=== PATIENT | female | born 1990 | race Two or more races ===

== ENCOUNTER 2018-11-19 10:15 | Emergency (ER) | payer MEDICAID, OTHER ==
[~2018-11-19] VITALS: Ht 142.2 cm; Wt 43.7 kg
[2018-11-19 21:02] VITALS: BP 92/41
== END 2018-11-19 21:06 | disposition home or self-care (01) ==
LOC: ED 15:31
DX: D50.0 Iron deficiency anemia secondary to blood loss (chronic) (principal); N92.4 Excessive bleeding in the premenopausal period
CPT/HCPCS: 36415; 36430; 76830; 80053; 81001; 84703; 85025; 85610; 86850; 86900; 86923; 87077; 87086; 87186; 93005; 99285; P9016

== ENCOUNTER → 2019-03-06 | Outpatient (CLI) | payer MEDICAID ==
[~2019-03-06] MED LIST: ACET-1600 PO; AMOX-367 PO; CALC-534 PO; CALC1TAB68 PO; CYAN250013 PO; DEXA4TAB66 PO; FERR-46 PO; FERR-51 PO; LACT1CAP37 PO; LORA-446 PO; MAGNESIUM PO; POTA20LI2 PO; POTA20TA6 PO; PROC10TA78 PO; SUMA50TA3 PO; WARF-36 PO-COUM; WARF1TAB74 PO; [UNRECOGNIZED DRUG - CODE] PO
[2019-03-06 10:11] LABS: BASOPHILS # (AUTO) 0.01 x10^3/uL (0-0.1); BASOPHILS % (AUTO) 0 % (0-1); EOSINOPHILS % (AUTO) 3 % (1-7); LYMPHOCYTES # (AUTO) 0.58 x10^3/uL (1-3.4); LYMPHOCYTES % (AUTO) 19 % (22-44); MD NO; MEAN CORPUSCULAR HEMOGLOBIN 33.1 pg (27.0-34.8); MEAN CORPUSCULAR HGB CONC 33.8 g/dL (32.4-35.8); MEAN CORPUSCULAR VOLUME 97.9 fL (80-100); MEAN PLATELET VOLUME 7.7 fL (7.4-10.4); MONOCYTES # (AUTO) 0.18 x10^3/uL (0.2-0.8); MONOCYTES % (AUTO) 6 % (2-9); NEUTROPHILS # (AUTO) 2.13 x10^3/uL (1.8-6.8); NEUTROPHILS % (AUTO) 71 % (42-75); PLATELET COUNT 308 x10^3/uL (130-400); RED BLOOD COUNT 3.56 x10^6/uL (3.82-5.3); RED CELL DISTRIBUTION WIDTH 12.6 % (9.6-15.2)
[2019-03-06 10:20] LABS: ALANINE AMINOTRANSFERASE 28 U/L (12-78); ANION GAP 9 mmol/L (5-15); CALCIUM 9.1 mg/dL (8.5-10.1); CHLORIDE 106 mmol/L (98-107); CREATININE 0.75 mg/dL (0.55-1.02)
[2019-03-06 10:23] LABS: INTERNATIONAL NORMALIZED RATIO 1.35 (0.93-1.1)
[2019-03-06 10:24] LABS: ALKALINE PHOSPHATASE 92 U/L (45-117); BILIRUBIN,TOTAL 0.5 mg/dL (0.2-1.0); TOTAL PROTEIN 8.3 g/dL (6.4-8.2)
== END | disposition home or self-care (01) ==
LOC: STAR 09:13
PROVIDERS: ATTEND Specialist
DX: Z51.11 Encounter for antineoplastic chemotherapy (principal); C53.1 Malignant neoplasm of exocervix; N92.0 Excessive and frequent menstruation with regular cycle; I82.890 Acute embolism and thrombosis of other specified veins; Z79.01 Long term (current) use of anticoagulants
CPT/HCPCS: 36415; 80053; 84703; 85025; 85610; 85730

== ENCOUNTER 2019-03-10 07:09 | Day surgery (SDC) | payer MEDICAID ==
[~2019-03-10] VITALS: Ht 144.8 cm; Wt 42.7 kg
[2019-03-10] MEDS ORDERED: LACTATED RINGERS 1,000 ML IV SCH (07:54)
[2019-03-10 07:55] VITALS: BP 104/72
[2019-03-10] MEDS ORDERED: CEFOTETAN PMX 2GM/50ML 50 ML IV ONE (08:00)
[2019-03-10 08:43] LABS: ALANINE AMINOTRANSFERASE 26 U/L (12-78); ALBUMIN 3.9 g/dL (3.4-5.0); ANION GAP 6 mmol/L (5-15); CALCIUM 9.4 mg/dL (8.5-10.1); CHLORIDE 108 mmol/L (98-107); CREATININE 0.76 mg/dL (0.55-1.02)
[2019-03-10 08:45] LABS: ALKALINE PHOSPHATASE 83 U/L (45-117); BILIRUBIN,TOTAL 0.4 mg/dL (0.2-1.0); TOTAL PROTEIN 7.8 g/dL (6.4-8.2)
[2019-03-10 09:06] LABS: PROTHROMBIN TIME 10.5 Seconds (9.6-11.5)
[2019-03-10 09:15] LABS: HCG UR SG 1.012 (1.003-1.030)
[2019-03-10] MEDS ORDERED: FENTANYL PF 250 MCG/5ML ONE (10:46)
[2019-03-10] MEDS ORDERED: MIDAZOLAM 1 MG/ML, 2ML ONE (10:46)
[2019-03-10] MEDS ORDERED: SUCCINYLCHOLINE 20 MG/ML, 10ML ONE (10:47)
[2019-03-10] MEDS ORDERED: ONDANSETRON 2MG/ML, 2ML ONE ×2 (10:47)
[2019-03-10] MEDS ORDERED: PROPOFOL 10 MG/ML, 20ML ONE (10:47)
[2019-03-10] MEDS ORDERED: DEXAMETHASONE 4 MG/ML, 1ML ONE ×2 (10:47)
[2019-03-10] MEDS ORDERED: ROCURONIUM 10MG/ML,5ML ONE (10:47)
[2019-03-10] MEDS ORDERED: SUGAMMADEX 200 MG/2 ML IVPush ONE (11:45)
[2019-03-10] MEDS ORDERED: hydrALAzine 20 MG/ML, 1ML IV PRN (12:00)
[2019-03-10] MEDS ORDERED: PROMETHAZINE 25 MG/ML, 1ML IV PRN (12:00)
[2019-03-10] MEDS ORDERED: ACETAMINOPHEN 325 MG TABLET PO PRN (12:00)
[2019-03-10] MEDS ORDERED: DIAZEPAM 5 MG/ML, 2ML IVPush PRN (12:00)
[2019-03-10] MEDS ORDERED: HYDROmorphone 2 MG/ML, 1ML IVPush PRN (12:00)
[2019-03-10] MEDS ORDERED: PROMETHAZINE 12.5 MG SUPP PR PRN (12:00)
[2019-03-10] MEDS ORDERED: MEPERIDINE/PF 25MG/ML,1ML IVPush PRN (12:00)
[2019-03-10] MEDS ORDERED: ONDANSETRON 2MG/ML, 2ML IV PRN (12:00)
[2019-03-10] MEDS ORDERED: MIDAZOLAM 1 MG/ML, 2ML IV PRN (12:00)
[2019-03-10] MEDS ORDERED: ONDANSETRON ODT 8 MG PO PRN (12:00)
[2019-03-10] MEDS ORDERED: ALBUTEROL SULFATE 2.5 MG/3 ML NPPB PRN (12:00)
[2019-03-10] MEDS ORDERED: OXYcodone 5 MG/5 ML ORAL.SOL UDC PO PRN (12:00)
[2019-03-10] MEDS ORDERED: LABETALOL 5MG/ML, 20ML IV PRN (12:00)
[2019-03-10] MEDS ORDERED: HALOPERIDOL 5 MG/ML IV PRN (12:00)
[2019-03-10] MEDS ORDERED: FENTANYL PF 100 MCG/2ML IV PRN (12:00)
[2019-03-10] MEDS ORDERED: EPHEDRINE 50 MG/ML, 1ML IVPush PRN (12:00)
== END 2019-03-10 14:30 | disposition home or self-care (01) ==
LOC: OUT 07:09
PROVIDERS: ATTEND Specialist
DX: N88.8 Other specified noninflammatory disorders of cervix uteri (principal); N72 Inflammatory disease of cervix uteri; C53.1 Malignant neoplasm of exocervix; N73.6 Female pelvic peritoneal adhesions (postinfective); I82.890 Acute embolism and thrombosis of other specified veins; F41.8 Other specified anxiety disorders; N92.0 Excessive and frequent menstruation with regular cycle; Z92.21 Personal history of antineoplastic chemotherapy; Z86.718 Personal history of other venous thrombosis and embolism; Z72.89 Other problems related to lifestyle; Z79.01 Long term (current) use of anticoagulants; Z98.890 Other specified postprocedural states
CPT/HCPCS: 36415; 49321; 52000; 80053; 81025; 85610; 85730; 86850; 86900; 88305; J0330; J1100; J2250; J2405; J2704; J3010; J3490; J7120

== ENCOUNTER 2019-04-09 11:17 | Outpatient (CLI) | payer MEDICAID | END 2019-04-09 23:59 | disposition home or self-care (01) | LOC: RAD 11:17 → CFH 23:59 | PROVIDERS: ATTEND Specialist | DX: Z51.11 Encounter for antineoplastic chemotherapy (principal); C53.1 Malignant neoplasm of exocervix; N92.0 Excessive and frequent menstruation with regular cycle; I82.890 Acute embolism and thrombosis of other specified veins; Z79.01 Long term (current) use of anticoagulants | CPT/HCPCS: 78815; 93971; A9552 ==

== ENCOUNTER 2019-04-17 07:02 | Outpatient (CLI) | payer MEDICAID | END 2019-04-17 23:59 | disposition home or self-care (01) | LOC: ROC 07:02 | PROVIDERS: ATTEND Radiology Radiation Oncology | DX: C53.9 Malignant neoplasm of cervix uteri, unspecified (principal); Z92.3 Personal history of irradiation | CPT/HCPCS: 99212; G0463 ==

== ENCOUNTER 2019-05-20 11:12 | Day surgery (SDC) | payer MEDICAID ==
[~2019-05-20] VITALS: Ht 144.8 cm; Wt 44.9 kg
[~2019-05-20 11:12] MED LIST changes: +BUPIVACAINE/PF 0.25% ONE
[2019-05-20] MEDS ORDERED: LACTATED RINGERS 1,000 ML IV SCH (11:56)
[2019-05-20] MEDS ORDERED: ASPI-496 PO (11:57)
[2019-05-20 11:58] VITALS: BP 109/69
[2019-05-20 12:25] LABS: HCG UR SG 1.029 (1.003-1.030)
[2019-05-20 12:26] LABS: BASOPHILS # (AUTO) 0.02 x10^3/uL (0-0.1); BASOPHILS % (AUTO) 1 % (0-1); EOSINOPHILS # (AUTO) 0.07 x10^3/uL (0-0.4); EOSINOPHILS % (AUTO) 2 % (1-7); LYMPHOCYTES # (AUTO) 0.66 x10^3/uL (1-3.4); LYMPHOCYTES % (AUTO) 22 % (22-44); MD NO; MEAN CORPUSCULAR HEMOGLOBIN 31.5 pg (27.0-34.8); MEAN CORPUSCULAR HGB CONC 34.8 g/dL (32.4-35.8); MEAN CORPUSCULAR VOLUME 90.6 fL (80-100); MEAN PLATELET VOLUME 7.6 fL (7.4-10.4); MONOCYTES # (AUTO) 0.22 x10^3/uL (0.2-0.8); MONOCYTES % (AUTO) 7 % (2-9); NEUTROPHILS # (AUTO) 2.02 x10^3/uL (1.8-6.8); NEUTROPHILS % (AUTO) 68 % (42-75); PLATELET COUNT 288 x10^3/uL (130-400); RED CELL DISTRIBUTION WIDTH 11.7 % (9.6-15.2)
[2019-05-20] MEDS ORDERED: CEFOTETAN PMX 2GM/50ML 50 ML ONE (12:28)
[2019-05-20] MEDS ORDERED: PLEASE ENTER HEIGHT AND WEIGHT MC SCH (12:30)
[2019-05-20] MEDS ORDERED: CEFOTETAN PMX 2GM/50ML 50 ML IV ONE (12:30)
[2019-05-20 12:31] LABS: INTERNATIONAL NORMALIZED RATIO 1.03 (0.93-1.1); PROTHROMBIN TIME 10.9 Seconds (9.6-11.5)
[2019-05-20 12:32] LABS: ALBUMIN 3.8 g/dL (3.4-5.0); ANION GAP 8 mmol/L (5-15); CALCIUM 9.2 mg/dL (8.5-10.1); CHLORIDE 107 mmol/L (98-107)
[2019-05-20 12:52] LABS: ALANINE AMINOTRANSFERASE 20 U/L (12-78); ALKALINE PHOSPHATASE 78 U/L (45-117); BILIRUBIN,TOTAL 0.5 mg/dL (0.2-1.0); CREATININE 0.68 mg/dL (0.55-1.02); TOTAL PROTEIN 7.6 g/dL (6.4-8.2)
[2019-05-20] MEDS ORDERED: FENTANYL PF 250 MCG/5ML ONE (15:02)
[2019-05-20] MEDS ORDERED: MIDAZOLAM 1 MG/ML, 2ML ONE (15:02)
[2019-05-20] MEDS ORDERED: ROCURONIUM 10MG/ML,5ML ONE (15:07)
[2019-05-20] MEDS ORDERED: PROPOFOL 10 MG/ML, 20ML ONE (15:07)
[2019-05-20] MEDS ORDERED: DEXAMETHASONE 4 MG/ML, 1ML ONE (15:07)
[2019-05-20] MEDS ORDERED: CEFAZOLIN 1,000 MG ONE (15:07)
[2019-05-20] MEDS ORDERED: SUCCINYLCHOLINE 20 MG/ML, 10ML ONE (15:07)
[2019-05-20] MEDS ORDERED: ONDANSETRON 2MG/ML, 2ML ONE (15:07)
[2019-05-20] MEDS ORDERED: MEPERIDINE/PF 25MG/0.5ML IVPush PRN (15:30)
[2019-05-20] MEDS ORDERED: HYDROmorphone 1 MG/ML, 1ML INJ IV PRN (15:30)
[2019-05-20] MEDS ORDERED: PROMETHAZINE 25 MG/ML, 1ML IV PRN (15:30)
[2019-05-20] MEDS ORDERED: METOCLOPRAMIDE 5 MG/ML, 2ML IV PRN (15:30)
[2019-05-20] MEDS ORDERED: KETOROLAC 30 MG/1 ML IV PRN (15:30)
[2019-05-20] MEDS ORDERED: OXYcodone 5 MG/5 ML ORAL.SOL UDC PO PRN (15:30)
[2019-05-20] MEDS ORDERED: hydrALAzine 20 MG/ML, 1ML IV PRN (15:30)
[2019-05-20] MEDS ORDERED: ONDANSETRON 2MG/ML, 2ML IVPush PRN (15:30)
[2019-05-20] MEDS ORDERED: ALBUTEROL SULFATE 2.5 MG/3 ML NPPB PRN (15:30)
[2019-05-20] MEDS ORDERED: LABETALOL 5MG/ML, 20ML IV PRN (15:30)
[2019-05-20] MEDS ORDERED: FENTANYL PF 100 MCG/2ML IV PRN (15:30)
[2019-05-20] MEDS ORDERED: DIAZEPAM 5 MG/ML, 2ML IV PRN ×2 (15:30)
[2019-05-20] MEDS ORDERED: FENTANYL PF 100 MCG/2ML ONE (17:13)
[2019-05-20] MEDS ORDERED: OXYcodone 5 MG/5 ML ORAL.SOL UDC ONE (17:13)
[2019-05-20] MEDS ORDERED: KETOROLAC 30 MG/1 ML ONE (17:13)
[2019-05-20] MEDS ORDERED: DIAZEPAM 5 MG/ML, 2ML ONE (18:06)
== END 2019-05-20 20:21 | disposition home or self-care (01) ==
LOC: OUT 11:12 → 4NE 18:54 → OUT 20:21
PROVIDERS: ATTEND Specialist
DX: C53.1 Malignant neoplasm of exocervix (principal); C48.1 Malignant neoplasm of specified parts of peritoneum; N73.6 Female pelvic peritoneal adhesions (postinfective); F41.9 Anxiety disorder, unspecified; Z79.82 Long term (current) use of aspirin; Z79.01 Long term (current) use of anticoagulants; Z79.899 Other long term (current) drug therapy; Z86.718 Personal history of other venous thrombosis and embolism; Z92.21 Personal history of antineoplastic chemotherapy; Z98.890 Other specified postprocedural states
CPT/HCPCS: 36415; 49321; 80053; 81025; 85025; 85610; 85730; 86850; 86900; 88305; 88331; J0330; J0690; J1100; J1885; J2250; J2405; J2704; J3010; J3360; J3490; J7120; S2900; G0378

== ENCOUNTER 2019-06-02 07:50 | Outpatient (CLI) | payer MEDICAID ==
[~2019-06-02 07:50] MED LIST changes: +ASPI-496 PO; -BUPIVACAINE/PF 0.25% ONE
== END 2019-06-02 23:59 | disposition home or self-care (01) ==
LOC: ROC 07:50
PROVIDERS: ATTEND Radiology Radiation Oncology
DX: C53.9 Malignant neoplasm of cervix uteri, unspecified (principal)
CPT/HCPCS: 99212; G0463

== ENCOUNTER 2019-06-06 15:40 | Inpatient (IN) | payer MEDICAID ==
[~2019-06-06] VITALS: Ht 152.4 cm; Wt 41.3 kg
--- NOTE | 2019-06-06 16:00 | NUR ---
PT TO ROOM 13 PER WHEELCHAIR. PT C/O ABDOMINAL PAIN, STEMING FROM HER LAP TROCHAR SITES WRAPPING AROUND TO BACK, DOES NOT HIT SPINE. PAIN HAS BEEN PRESENT SINCE SUNDAY. NAUSEATED NO VOMITING, NORMAL BM. PT HAD ATTEMPTED DAVINCI ROBOT ASSISTED TOTAL HYSTERECTOMY X1 WK AGO. PT HAS HAD NO COMPLICATIONS FROM FAILED SURGERY, WHERE HYSTERECTOMY UNABLE TO BE PERFORMED, AND BIOPSY ONLY TAKEN. MOTHER AT BEDSIDE. PT IN GOWN, PLACED ON MONITOR. TACHYCARDIC AT 107, DECREASED SINCE INITIAL CHECKIN. PT STATES "I HAVE HAD A HIGH HEART RATE SINCE SUNDAY, RUNNING ANYWHERE FROM 120-140." PT IN GOWN, READY FOR MD EXAM. PLACED ON MONITORS.
[2019-06-06] MEDS ORDERED: ONDANSETRON 2MG/ML, 2ML IVPush ONE ×2 (17:00→21:30)
[2019-06-06] MEDS ORDERED: SODIUM CHLORIDE FLUSH 10ML SYR IVF ONE ×2 (17:00→19:00)
[2019-06-06] MEDS ORDERED: HYDROmorphone 2 MG/ML, 1ML IVPush PRN (17:00)
[2019-06-06] MEDS ORDERED: HYDROmorphone 1 MG/ML, 1ML INJ ONE ×3 (17:09→21:21)
[2019-06-06] MEDS ORDERED: ONDANSETRON 2MG/ML, 2ML ONE (17:10)
--- NOTE | 2019-06-06 17:10 | NUR ---
IV STARTED AND MEDICATIONS ADMINISTERED FOR PAIN AND NAUSEA. IV FLUIDS STARTED. AFTER INITIAL SLOW PUSH OF IV DILAUDID, PATIENT BEGINS TO CRY AND STATES "I DON'T LIKE HOW THIS MAKES ME FEEL." RN SITS WITH PATIENT AND USING DIVERSION AND DEEP BREATHING. PT STATES "MY PAIN IS NOW GONE, NOW I'M HIGH A KITE." PT RATES PAIN AT 0. MONITOR REMAINS ON, MOTHER REMAINS AT BEDSIDE. WILL CONTINUE TO MONITOR. AWAITING LAB RESULTS. CT NOTIFIED THAT 20 GA IV STARTED.
[2019-06-06 17:19] LABS: BASOPHILS # (AUTO) 0.03 x10^3/uL (0-0.1); BASOPHILS % (AUTO) 0 % (0-1); EOSINOPHILS # (AUTO) 0.06 x10^3/uL (0-0.4); EOSINOPHILS % (AUTO) 1 % (1-7); LYMPHOCYTES # (AUTO) 1.04 x10^3/uL (1-3.4); LYMPHOCYTES % (AUTO) 10 % (22-44); MD NO; MEAN CORPUSCULAR HEMOGLOBIN 30.9 pg (27.0-34.8); MEAN CORPUSCULAR HGB CONC 33.8 g/dL (32.4-35.8); MEAN CORPUSCULAR VOLUME 91.3 fL (80-100); MEAN PLATELET VOLUME 6.6 fL (7.4-10.4); MONOCYTES % (AUTO) 6 % (2-9); NEUTROPHILS # (AUTO) 8.67 x10^3/uL (1.8-6.8); NEUTROPHILS % (AUTO) 83 % (42-75); PLATELET COUNT 689 x10^3/uL (130-400); RED BLOOD COUNT 3.13 x10^6/uL (3.82-5.3); RED CELL DISTRIBUTION WIDTH 12.1 % (9.6-15.2)
[2019-06-06 17:30] LABS: ALANINE AMINOTRANSFERASE 16 U/L (12-78); ALBUMIN 2.7 g/dL (3.4-5.0); ANION GAP 11 mmol/L (5-15); CALCIUM 9.1 mg/dL (8.5-10.1); CHLORIDE 104 mmol/L (98-107); CREATININE 0.73 mg/dL (0.55-1.02)
[2019-06-06 17:35] LABS: ALKALINE PHOSPHATASE 230 U/L (45-117); BILIRUBIN,TOTAL 0.2 mg/dL (0.2-1.0); TOTAL PROTEIN 8.7 g/dL (6.4-8.2)
[2019-06-06 17:51] LABS: MICROSCOPIC AUTO
--- NOTE | 2019-06-06 18:00 | NUR ---
REPORT TO RELIEF RN FOR LUNCH
[2019-06-06] MEDS ORDERED: OMNIPAQUE 350 MG/ML, 100ML BOTTLE ONE (18:15)
--- NOTE | 2019-06-06 18:30 | NUR ---
RETURN FROM LUNCH. PT PAIN REMAINS 2. MOM AT BEDSIDE. HR 125.
[2019-06-06] MEDS ORDERED: SODIUM CHLORIDE 0.9% 1,000ML IVBOLUS ONE ×3 (19:00→21:30)
--- NOTE | 2019-06-06 19:05 | NUR ---
PATIENT PAIN RETURNING AFTER AMBULATING TO BR. REPEAT 1MG DILAUDID. NACL BOLUS AND IV ANTIBIOTICS STARTED. FAMILY REMAINS AT BEDSIDE. CRYING REACTION NOT WITH THIS DOSE OF MEDICATIONS.
[2019-06-06] MEDS ORDERED: METRONIDAZOLE PMX 500MG/100ML 100 ML IV ONE (19:30)
[2019-06-06] MEDS ORDERED: AMPICILLIN/SULBACTAM 3 GM in SODIUM CHLORIDE 0.9% 100 ML IV ONE (19:30)
[2019-06-06] MEDS ORDERED: METRONIDAZOLE PMX 500MG/100ML 100 ML ONE (19:40)
--- NOTE | 2019-06-06 20:05 | NUR ---
PT PAIN INCREASING AGAIN. FAMILY FOLLOWING RN IN OTHER PATIENTS ROOM TO INFORM RN THAT PAIN HAS INCREASED AND PATIENT IS CRYING HYSTERICALLY. RN INFORMS FAMILY THAT RN WILL BE OVER SHORTLY TO ADDRESS.
--- NOTE | 2019-06-06 20:30 | NUR ---
RN IN TO ASSESS PATIENT. PT CRYING HYSTERICALLY, AND ROCKING BACK AND FORTH ON BED. RN SEES THAT HR IS 163. RN ATTEMPTING TO CALM PATIENT AND ASSESS PAIN. RN PROBING TO SEE IF PAIN HAS CHANGED FROM EARLIER, AND WHAT'S MAKES IT HURT THIS MUCH MORE AT THIS TIME. PT UNABLE TO ANSWER SHE REMAINS HYSTERICAL. DEVELOPER PROGRAMMER IN TO ASSESS WELL DUE TO EXTREME TACHY. ADDITIONAL FLOOR NURSE IN TO PERFORM EKG. ORDERS RECEIVED FOR ADDITIONAL PAIN MEDICATIONS. PT AGAIN REMINDED THAT STRICT NPO PER ER MD.
--- NOTE | 2019-06-06 20:45 | NUR ---
PAIN DOWN TO A 3, HR DOWN TO 140, PT SUCKING ON GLYCERIN SWABS. RN ADDRESSES FOLLOWING RN IN TO OTHER PATIENT'S ROOM A PRIVACY AND HIPPA CONCERN. MOTHER VERBALIZES UNDERSTANDING. FAMILY REMAINS AT BEDSIDE.
--- NOTE | 2019-06-06 21:00 | NUR ---
HR DOWN TO 120. PT RESING IN ROOM. AWAITING BED PLACEMENT. WILL CONTINUE TO MONITOR PATIENT.
[2019-06-06] MEDS ORDERED: HYDROmorphone 1 MG/ML, 1ML INJ IV ONE (21:30)
--- NOTE | 2019-06-06 22:00 | NUR ---
PT SLEEPING, FAMILY AT BEDSIDE
--- NOTE | 2019-06-06 22:46 | NUR ---
PT UP TO BR WITH ONE ASSIST. HR INCREASES WITH MOVEMENT AND STRESS OF URGENCY. PT FEELS VERY WARM. WILL TAKE TEMP UPON RETURN TO ROOM. MOM IN BR WITH PATIENT.
[2019-06-06] MEDS ORDERED: ACETAMINOPHEN 500 MG TABLET ONE (22:55)
[2019-06-06] MEDS ORDERED: ACETAMINOPHEN 500 MG TABLET PO ONE (23:00)
[2019-06-06] MEDS ORDERED: VANCOMYCIN PER PHARMACY MC PRN (23:00)
--- NOTE | 2019-06-06 23:08 | NUR ---
INFORMED OF PATIENT FEBRILE STATUS, HR AND PAIN LEVEL. ORDER FOR 1GM PO TYLENOL. PT AND FAMILY INFORMED OF CHANGE OF STAFF, MONITORING FO TEMP./HR/PAIN LEVEL BEFORE BED PLACEMENT IS MADE. REPORT TO JACE PEÑA.
--- NOTE | 2019-06-06 23:31 | NUR ---
Report given to Sherita PEÑA
[2019-06-07] VITALS (7 sets, daily range): BP systolic 100–129; BP diastolic 63–82
[2019-06-07] MEDS ORDERED: HYDROmorphone 1 MG/ML, 1ML INJ IM PRN
[2019-06-07] MEDS: AMPICILLIN/SULBACTAM 3 GM in SODIUM CHLORIDE 0.9% 100 ML IV SCH ×5 (01:30→23:06)
[2019-06-07] MEDS: METRONIDAZOLE PMX 500MG/100ML 100 ML IV SCH ×4 (01:53→20:44)
[2019-06-07] MEDS: HYDROmorphone 1 MG/ML, 1ML INJ IV PRN (04:53)
[2019-06-07 07:21] LABS: MEAN CORPUSCULAR HEMOGLOBIN 30.9 pg (27.0-34.8); MEAN CORPUSCULAR HGB CONC 33.6 g/dL (32.4-35.8); MEAN CORPUSCULAR VOLUME 91.9 fL (80-100); MEAN PLATELET VOLUME 6.5 fL (7.4-10.4); PLATELET COUNT 602 x10^3/uL (130-400); RED BLOOD COUNT 2.69 x10^6/uL (3.82-5.3); RED CELL DISTRIBUTION WIDTH 12.6 % (9.6-15.2)
[2019-06-07 07:22] LABS: ALBUMIN 2.2 g/dL (3.4-5.0); ANION GAP 10 mmol/L (5-15); CALCIUM 8.4 mg/dL (8.5-10.1); CHLORIDE 111 mmol/L (98-107)
[2019-06-07 07:25] LABS: ALANINE AMINOTRANSFERASE 11 U/L (12-78); ALKALINE PHOSPHATASE 180 U/L (45-117); BILIRUBIN,TOTAL 0.3 mg/dL (0.2-1.0)
[2019-06-07 07:29] LABS: HEMOGRAM NOTE RECHECKED
[2019-06-07 07:30] LABS: BASOPHILS # (AUTO) 0.01 x10^3/uL (0-0.1); BASOPHILS % (AUTO) 0 % (0-1); EOSINOPHILS # (AUTO) 0.01 x10^3/uL (0-0.4); EOSINOPHILS % (AUTO) 0 % (1-7); LYMPHOCYTES # (AUTO) 0.92 x10^3/uL (1-3.4); LYMPHOCYTES % (AUTO) 8 % (22-44); MD NO; MONOCYTES # (AUTO) 0.63 x10^3/uL (0.2-0.8); MONOCYTES % (AUTO) 6 % (2-9); NEUTROPHILS % (AUTO) 86 % (42-75)
[2019-06-07] MEDS ORDERED: MORPHINE SULFATE 4 MG/ML, 1ML ONE ×2 (08:17→14:04)
[2019-06-07] MEDS ORDERED: SODIUM CHLORIDE 0.9% 1,000ML IVBOLUS ONE (13:00)
[2019-06-07] MEDS ORDERED: MORPHINE SULFATE 4 MG/ML, 1ML IVPush ONE (14:00)
[2019-06-07] MEDS: ONDANSETRON 2MG/ML, 2ML IVPush PRN (14:46)
[2019-06-07] MEDS: D5%-0.45NACL+KCL 20MEQ 1,000 ML IV SCH ×2 (16:19)
[2019-06-08] MEDS: HYDROmorphone 1 MG/ML, 1ML INJ IV PRN (01:51)
[2019-06-08] MEDS: METRONIDAZOLE PMX 500MG/100ML 100 ML IV SCH ×4 (03:07→20:27)
[2019-06-08] MEDS: D5%-0.45NACL+KCL 20MEQ 1,000 ML IV SCH ×2 (05:40→17:35)
[2019-06-08] MEDS: AMPICILLIN/SULBACTAM 3 GM in SODIUM CHLORIDE 0.9% 100 ML IV SCH ×4 (05:40→22:23)
[2019-06-08 06:48] VITALS: BP 110/72
[2019-06-08 13:52] VITALS: BP 111/76
[2019-06-08] MEDS: HYDROcodone/APAP 5/325 TABLET PO PRN ×3 (14:25→22:23)
[2019-06-08] MEDS: ONDANSETRON 2MG/ML, 2ML IVPush PRN (14:34)
[2019-06-08 18:34] VITALS: BP 105/71
[2019-06-09 01:15] VITALS: BP 100/67
[2019-06-09] MEDS: HYDROcodone/APAP 5/325 TABLET PO PRN ×5 (02:09→15:24)
[2019-06-09] MEDS: ONDANSETRON 2MG/ML, 2ML IVPush PRN ×4 (02:15→20:52)
[2019-06-09] MEDS: D5%-0.45NACL+KCL 20MEQ 1,000 ML IV SCH ×3 (03:50→21:06)
[2019-06-09 05:14] LABS: MEAN CORPUSCULAR HEMOGLOBIN 30.8 pg (27.0-34.8); MEAN CORPUSCULAR VOLUME 90.6 fL (80-100); MEAN PLATELET VOLUME 6.8 fL (7.4-10.4); PLATELET COUNT 463 x10^3/uL (130-400); RED BLOOD COUNT 2.42 x10^6/uL (3.82-5.3)
[2019-06-09 05:59] LABS: BASOPHILS # (AUTO) 0.01 x10^3/uL (0-0.1); BASOPHILS % (AUTO) 0 % (0-1); EOSINOPHILS % (AUTO) 1 % (1-7); LYMPHOCYTES # (AUTO) 0.56 x10^3/uL (1-3.4); LYMPHOCYTES % (AUTO) 6 % (22-44); MD SCAN; MONOCYTES # (AUTO) 0.41 x10^3/uL (0.2-0.8); MONOCYTES % (AUTO) 4 % (2-9); NEUTROPHILS # (AUTO) 8.34 x10^3/uL (1.8-6.8); NEUTROPHILS % (AUTO) 89 % (42-75)
[2019-06-09 07:52] VITALS: BP 103/69
[2019-06-09] MEDS ORDERED: PROCHLORPERAZINE 5 MG/ML, 2ML IVPush PRN (12:30)
[2019-06-09 15:06] VITALS: BP 110/72
[2019-06-09] MEDS: HYDROmorphone 1 MG/ML, 1ML INJ IV PRN ×2 (17:06→20:52)
[2019-06-09 19:47] VITALS: BP 113/78
[2019-06-10] VITALS (8 sets, daily range): BP systolic 108–118; BP diastolic 73–84
[2019-06-10] MEDS: HYDROmorphone 1 MG/ML, 1ML INJ IV PRN ×6 (01:04→21:42)
[2019-06-10] MEDS: D5%-0.45NACL+KCL 20MEQ 1,000 ML IV SCH ×2 (05:42→17:42)
[2019-06-10 06:10] LABS: MEAN CORPUSCULAR HEMOGLOBIN 30.5 pg (27.0-34.8); MEAN CORPUSCULAR HGB CONC 33.8 g/dL (32.4-35.8); MEAN CORPUSCULAR VOLUME 90.1 fL (80-100); MEAN PLATELET VOLUME 7.3 fL (7.4-10.4); PLATELET COUNT 467 x10^3/uL (130-400)
[2019-06-10 06:12] LABS: ANION GAP 7 mmol/L (5-15); CALCIUM 7.8 mg/dL (8.5-10.1); CHLORIDE 105 mmol/L (98-107); CREATININE 0.65 mg/dL (0.55-1.02)
[2019-06-10 06:33] LABS: BASOPHILS # (AUTO) 0.02 x10^3/uL (0-0.1); BASOPHILS % (AUTO) 0 % (0-1); EOSINOPHILS # (AUTO) 0.09 x10^3/uL (0-0.4); EOSINOPHILS % (AUTO) 1 % (1-7); LYMPHOCYTES # (AUTO) 0.74 x10^3/uL (1-3.4); LYMPHOCYTES % (AUTO) 8 % (22-44); MD SCAN; MONOCYTES % (AUTO) 5 % (2-9); NEUTROPHILS # (AUTO) 8.43 x10^3/uL (1.8-6.8); NEUTROPHILS % (AUTO) 86 % (42-75)
[2019-06-10] MEDS ORDERED: POTASSIUM CHLORIDE 20 MEQ in SODIUM CHLORIDE 0.9% 250 ML IV ONE (07:30)
[2019-06-10] MEDS: MAGNESIUM HYDROXIDE 8%, 30ML UDC PO SCH (08:25)
[2019-06-10] MEDS: ONDANSETRON 2MG/ML, 2ML IVPush PRN ×3 (10:12→22:15)
[2019-06-11 00:55] VITALS: BP 111/74
[2019-06-11] MEDS: HYDROmorphone 1 MG/ML, 1ML INJ IV PRN ×6 (01:45→22:02)
[2019-06-11] MEDS: D5%-0.45NACL+KCL 20MEQ 1,000 ML IV SCH ×3 (01:45→19:25)
[2019-06-11] MEDS: ONDANSETRON 2MG/ML, 2ML IVPush PRN ×3 (05:25→20:34)
[2019-06-11 05:46] LABS: BASOPHILS # (AUTO) 0.01 x10^3/uL (0-0.1); BASOPHILS % (AUTO) 0 % (0-1); EOSINOPHILS # (AUTO) 0.14 x10^3/uL (0-0.4); EOSINOPHILS % (AUTO) 2 % (1-7); LYMPHOCYTES # (AUTO) 0.86 x10^3/uL (1-3.4); LYMPHOCYTES % (AUTO) 10 % (22-44); MD NO; MEAN CORPUSCULAR HEMOGLOBIN 30.6 pg (27.0-34.8); MEAN CORPUSCULAR VOLUME 90.2 fL (80-100); MEAN PLATELET VOLUME 7.3 fL (7.4-10.4); MONOCYTES # (AUTO) 0.78 x10^3/uL (0.2-0.8); MONOCYTES % (AUTO) 9 % (2-9); NEUTROPHILS # (AUTO) 6.85 x10^3/uL (1.8-6.8); NEUTROPHILS % (AUTO) 79 % (42-75); PLATELET COUNT 442 x10^3/uL (130-400); RED BLOOD COUNT 2.67 x10^6/uL (3.82-5.3)
[2019-06-11 05:54] LABS: CHLORIDE 106 mmol/L (98-107)
[2019-06-11 05:58] LABS: ANION GAP 9 mmol/L (5-15); CREATININE 0.74 mg/dL (0.55-1.02)
[2019-06-11 06:40] VITALS: BP 120/81
[2019-06-11] MEDS: MAGNESIUM HYDROXIDE 8%, 30ML UDC PO SCH (09:01)
[2019-06-11 12:51] VITALS: BP 125/83
[2019-06-11 19:40] VITALS: BP 124/83
[2019-06-12 01:27] VITALS: BP 123/71
[2019-06-12] MEDS: HYDROmorphone 1 MG/ML, 1ML INJ IV PRN ×6 (02:00→22:28)
[2019-06-12] MEDS: ONDANSETRON 2MG/ML, 2ML IVPush PRN ×2 (03:06→09:22)
[2019-06-12] MEDS: D5%-0.45NACL+KCL 20MEQ 1,000 ML IV SCH ×3 (03:06→21:36)
[2019-06-12 04:58] LABS: BASOPHILS # (AUTO) 0.02 x10^3/uL (0-0.1); BASOPHILS % (AUTO) 0 % (0-1); EOSINOPHILS # (AUTO) 0.23 x10^3/uL (0-0.4); EOSINOPHILS % (AUTO) 3 % (1-7); LYMPHOCYTES # (AUTO) 0.73 x10^3/uL (1-3.4); LYMPHOCYTES % (AUTO) 9 % (22-44); MD NO; MEAN CORPUSCULAR HEMOGLOBIN 30.1 pg (27.0-34.8); MEAN CORPUSCULAR HGB CONC 33.3 g/dL (32.4-35.8); MEAN CORPUSCULAR VOLUME 90.3 fL (80-100); MEAN PLATELET VOLUME 6.9 fL (7.4-10.4); MONOCYTES # (AUTO) 0.66 x10^3/uL (0.2-0.8); MONOCYTES % (AUTO) 8 % (2-9); NEUTROPHILS # (AUTO) 6.53 x10^3/uL (1.8-6.8); NEUTROPHILS % (AUTO) 80 % (42-75); PLATELET COUNT 456 x10^3/uL (130-400); RED BLOOD COUNT 2.81 x10^6/uL (3.82-5.3)
[2019-06-12 05:09] LABS: ANION GAP 7 mmol/L (5-15); CALCIUM 7.9 mg/dL (8.5-10.1); CHLORIDE 106 mmol/L (98-107)
[2019-06-12 05:10] LABS: CREATININE 0.79 mg/dL (0.55-1.02)
[2019-06-12 07:50] VITALS: BP 138/82
[2019-06-12] MEDS ORDERED: MAGNESIUM SULFATE PMX 4GM/100M 100 ML IV ONE (09:00)
[2019-06-12] MEDS: MAGNESIUM HYDROXIDE 8%, 30ML UDC PO SCH (09:21)
[2019-06-12] MEDS: METOCLOPRAMIDE 5 MG/ML, 2ML IVPush SCH ×3 (10:43→21:36)
[2019-06-12 16:40] VITALS: BP 131/84
[2019-06-12 19:03] VITALS: BP 129/82
[2019-06-13 01:32] VITALS: BP 122/79
[2019-06-13] MEDS: HYDROmorphone 1 MG/ML, 1ML INJ IV PRN ×5 (03:40→19:52)
[2019-06-13] MEDS: D5%-0.45NACL+KCL 20MEQ 1,000 ML IV SCH ×2 (05:21→13:57)
[2019-06-13] MEDS: METOCLOPRAMIDE 5 MG/ML, 2ML IVPush SCH ×3 (05:21→18:40)
[2019-06-13 06:30] VITALS: BP 128/87
[2019-06-13] MEDS: MAGNESIUM HYDROXIDE 8%, 30ML UDC PO SCH (07:50)
[2019-06-13 12:29] VITALS: BP 125/84
[2019-06-13] MEDS ORDERED: PINK LADY ENEMA 490 ML BOTTLE PR ONE (15:00)
[2019-06-13 16:22] LABS: ALANINE AMINOTRANSFERASE 11 U/L (12-78); ANION GAP 7 mmol/L (5-15); CALCIUM 8.3 mg/dL (8.5-10.1); CHLORIDE 108 mmol/L (98-107); CREATININE 0.83 mg/dL (0.55-1.02)
[2019-06-13 16:27] LABS: ALKALINE PHOSPHATASE 141 U/L (45-117); BILIRUBIN,TOTAL 0.3 mg/dL (0.2-1.0); PREALBUMIN 9.2 mg/dL (20.0-40.0); TOTAL PROTEIN 7.3 g/dL (6.4-8.2); TRIGLYCERIDES 158 mg/dL (50-200)
[2019-06-13] MEDS ORDERED: FAT EMUL IV SCH ×2 (17:00)
[2019-06-13] MEDS: D5%-0.45% NACL 1,000 ML IV SCH ×2 (17:00→22:04)
[2019-06-13] MEDS ORDERED: DEXTROSE 50%, 50ML SYRINGE IVPush PRN (17:00)
[2019-06-13] MEDS ORDERED: DEXTROSE 70% IV SCH ×2 (17:00)
[2019-06-13] MEDS ORDERED: [UNRECOGNIZED DRUG - OTHER] IV SCH ×2 (17:00)
[2019-06-13] MEDS ORDERED: PVN PER PHARMACY IV SCH (17:00)
[2019-06-13] MEDS ORDERED: AMINO ACID 10% IV SCH ×2 (17:00)
[2019-06-13] MEDS ORDERED: DEXTROSE 10% 500 ML IV PRN (17:00)
[2019-06-13] MEDS ORDERED: SMOF TPN IV SCH ×2 (17:00)
[2019-06-13] MEDS ORDERED: TPN PER PHARMACY MC PRN (17:00)
[2019-06-13 18:49] VITALS: BP 122/81
[2019-06-13] MEDS: FILTER, DISP 1.2 MICRON FOR TPN/PVN IV PRN (22:04)
[2019-06-14] MEDS: METOCLOPRAMIDE 5 MG/ML, 2ML IVPush SCH ×4 (00:07→17:49)
[2019-06-14] MEDS: HYDROmorphone 1 MG/ML, 1ML INJ IV PRN ×2 (00:08→04:20)
[2019-06-14 03:15] VITALS: BP 120/71
[2019-06-14 05:11] LABS: BASOPHILS # (AUTO) 0.03 x10^3/uL (0-0.1); BASOPHILS % (AUTO) 0 % (0-1); EOSINOPHILS # (AUTO) 0.16 x10^3/uL (0-0.4); EOSINOPHILS % (AUTO) 2 % (1-7); LYMPHOCYTES # (AUTO) 0.56 x10^3/uL (1-3.4); LYMPHOCYTES % (AUTO) 7 % (22-44); MD NO; MEAN CORPUSCULAR HEMOGLOBIN 29.9 pg (27.0-34.8); MEAN CORPUSCULAR VOLUME 90.6 fL (80-100); MEAN PLATELET VOLUME 7.2 fL (7.4-10.4); MONOCYTES # (AUTO) 0.56 x10^3/uL (0.2-0.8); MONOCYTES % (AUTO) 7 % (2-9); NEUTROPHILS % (AUTO) 85 % (42-75); PLATELET COUNT 481 x10^3/uL (130-400); RED BLOOD COUNT 2.94 x10^6/uL (3.82-5.3); RED CELL DISTRIBUTION WIDTH 12.7 % (9.6-15.2)
[2019-06-14 05:27] LABS: ALBUMIN 1.9 g/dL (3.4-5.0); ANION GAP 6 mmol/L (5-15); CALCIUM 8.2 mg/dL (8.5-10.1); CHLORIDE 106 mmol/L (98-107)
[2019-06-14 05:31] LABS: ALANINE AMINOTRANSFERASE 12 U/L (12-78); ALKALINE PHOSPHATASE 132 U/L (45-117); BILIRUBIN,TOTAL 0.3 mg/dL (0.2-1.0); CREATININE 0.76 mg/dL (0.55-1.02); TOTAL PROTEIN 6.7 g/dL (6.4-8.2)
[2019-06-14] MEDS: INSULIN REGULAR MEDIUM DOSE Q6H X 48HRS SQ-INSULIN SCH ×4 (05:55→18:00)
[2019-06-14] MEDS: HYDROcodone/APAP 5/325 TABLET PO PRN ×4 (08:33→22:22)
[2019-06-14] MEDS: MAGNESIUM HYDROXIDE 8%, 30ML UDC PO SCH (08:33)
[2019-06-14 08:45] VITALS: BP 119/79
[2019-06-14 12:50] VITALS: BP 113/76
[2019-06-14] MEDS ORDERED: DEXTROSE 70% IV SCH ×3 (17:00)
[2019-06-14] MEDS ORDERED: [UNRECOGNIZED DRUG - OTHER] IV SCH (17:00)
[2019-06-14] MEDS ORDERED: FAT EMUL IV SCH ×3 (17:00)
[2019-06-14] MEDS ORDERED: [UNRECOGNIZED DRUG - OTHER] IV SCH (17:00)
[2019-06-14] MEDS ORDERED: SMOF TPN IV SCH ×3 (17:00)
[2019-06-14] MEDS ORDERED: AMINO ACID 10% IV SCH ×3 (17:00)
[2019-06-14] MEDS ORDERED: [UNRECOGNIZED DRUG - OTHER] IV SCH (17:00)
[2019-06-14 18:49] VITALS: BP 119/77
[2019-06-15 00:08] VITALS: BP 127/85
[2019-06-15] MEDS: METOCLOPRAMIDE 5 MG/ML, 2ML IVPush SCH ×4 (00:23→17:45)
[2019-06-15] MEDS: HYDROcodone/APAP 5/325 TABLET PO PRN ×5 (03:09→21:57)
[2019-06-15] MEDS: FILTER, DISP 1.2 MICRON FOR TPN/PVN IV PRN (03:10)
[2019-06-15 05:00] LABS: ANION GAP 6 mmol/L (5-15); CALCIUM 8.6 mg/dL (8.5-10.1); CHLORIDE 106 mmol/L (98-107)
[2019-06-15 05:01] LABS: CREATININE 0.68 mg/dL (0.55-1.02)
[2019-06-15] MEDS: INSULIN REGULAR MEDIUM DOSE Q6H X 48HRS SQ-INSULIN SCH ×4 (06:00→17:59)
[2019-06-15 08:52] VITALS: BP 144/89
[2019-06-15] MEDS: MAGNESIUM HYDROXIDE 8%, 30ML UDC PO SCH (09:15)
[2019-06-15 13:52] VITALS: BP 135/90
[2019-06-15 15:35] LABS: MICROSCOPIC AUTO
[2019-06-15] MEDS ORDERED: FAT EMUL IV SCH (17:00)
[2019-06-15] MEDS ORDERED: SMOF TPN IV SCH (17:00)
[2019-06-15] MEDS ORDERED: AMINO ACID 10% IV SCH (17:00)
[2019-06-15] MEDS ORDERED: DEXTROSE 70% IV SCH (17:00)
[2019-06-15] MEDS ORDERED: [UNRECOGNIZED DRUG - OTHER] IV SCH (17:00)
[2019-06-15 18:36] VITALS: BP 119/81
[2019-06-16] MEDS: METOCLOPRAMIDE 5 MG/ML, 2ML IVPush SCH ×4 (00:12→16:39)
[2019-06-16 02:30] VITALS: BP 125/85
[2019-06-16] MEDS: HYDROcodone/APAP 5/325 TABLET PO PRN ×2 (03:28→08:36)
[2019-06-16 05:43] LABS: BASOPHILS % (AUTO) 0 % (0-1); EOSINOPHILS # (AUTO) 0.22 x10^3/uL (0-0.4); EOSINOPHILS % (AUTO) 2 % (1-7); LYMPHOCYTES # (AUTO) 0.89 x10^3/uL (1-3.4); LYMPHOCYTES % (AUTO) 10 % (22-44); MD NO; MEAN CORPUSCULAR HEMOGLOBIN 30.1 pg (27.0-34.8); MEAN CORPUSCULAR HGB CONC 33.6 g/dL (32.4-35.8); MEAN CORPUSCULAR VOLUME 89.7 fL (80-100); MEAN PLATELET VOLUME 7.5 fL (7.4-10.4); MONOCYTES # (AUTO) 0.64 x10^3/uL (0.2-0.8); MONOCYTES % (AUTO) 7 % (2-9); NEUTROPHILS % (AUTO) 81 % (42-75); PLATELET COUNT 560 x10^3/uL (130-400); RED BLOOD COUNT 3.06 x10^6/uL (3.82-5.3); RED CELL DISTRIBUTION WIDTH 12.3 % (9.6-15.2)
[2019-06-16 05:48] LABS: INTERNATIONAL NORMALIZED RATIO 1.07 (0.93-1.1); PROTHROMBIN TIME 11.3 Seconds (9.6-11.5)
[2019-06-16 05:53] LABS: CHLORIDE 104 mmol/L (98-107)
[2019-06-16] MEDS: INSULIN REGULAR MEDIUM DOSE QDAY SQ-INSULIN SCH (06:00)
[2019-06-16 06:01] LABS: ALANINE AMINOTRANSFERASE 42 U/L (12-78); ALBUMIN 2.2 g/dL (3.4-5.0); ALKALINE PHOSPHATASE 274 U/L (45-117); ANION GAP 6 mmol/L (5-15); BILIRUBIN,TOTAL 0.2 mg/dL (0.2-1.0); CALCIUM 8.6 mg/dL (8.5-10.1); CREATININE 0.75 mg/dL (0.55-1.02); TOTAL PROTEIN 7.8 g/dL (6.4-8.2)
[2019-06-16 07:31] VITALS: BP 135/75
[2019-06-16] MEDS: MAGNESIUM HYDROXIDE 8%, 30ML UDC PO SCH (08:55)
[2019-06-16] MEDS ORDERED: TPN PER PHARMACY MC SCH (11:30)
[2019-06-16] MEDS ORDERED: GOLYTELY 4,000ML ORAL.SOL PO SCH (12:30)
[2019-06-16] MEDS: HYDROmorphone 1 MG/ML, 1ML INJ IV PRN ×3 (13:07→20:20)
[2019-06-16 14:26] VITALS: BP 142/93
[2019-06-16] MEDS: FILTER, DISP 1.2 MICRON FOR TPN/PVN IV PRN (16:39)
[2019-06-16] MEDS ORDERED: [UNRECOGNIZED DRUG - OTHER] IV SCH (17:00)
[2019-06-16] MEDS ORDERED: DEXTROSE 70% IV SCH (17:00)
[2019-06-16] MEDS ORDERED: SMOF TPN IV SCH (17:00)
[2019-06-16] MEDS ORDERED: FAT EMUL IV SCH (17:00)
[2019-06-16] MEDS ORDERED: AMINO ACID 10% IV SCH (17:00)
[2019-06-17] MEDS: HYDROmorphone 1 MG/ML, 1ML INJ IV PRN ×2 (00:28→04:47)
[2019-06-17] MEDS: INSULIN REGULAR MEDIUM DOSE QDAY SQ-INSULIN SCH ×2 (00:38→19:39)
[2019-06-17] MEDS: METOCLOPRAMIDE 5 MG/ML, 2ML IVPush SCH ×3 (00:55→11:45)
[2019-06-17 05:11] LABS: ANION GAP 10 mmol/L (5-15); CALCIUM 8.8 mg/dL (8.5-10.1); CHLORIDE 97 mmol/L (98-107); CREATININE 0.76 mg/dL (0.55-1.02)
[2019-06-17 06:55] VITALS: BP 143/78
[2019-06-17] MEDS ORDERED: FENTANYL PF 250 MCG/5ML ONE ×3 (11:15→18:38)
[2019-06-17] MEDS ORDERED: MIDAZOLAM 1 MG/ML, 2ML ONE (11:15)
[2019-06-17 11:43] LABS: HCG UR SG 1.005 (1.003-1.030)
[2019-06-17] MEDS ORDERED: DEXAMETHASONE 4 MG/ML, 1ML ONE ×2 (11:57→14:26)
[2019-06-17] MEDS ORDERED: ONDANSETRON 2MG/ML, 2ML ONE ×2 (11:57→14:26)
[2019-06-17] MEDS ORDERED: ROCURONIUM 10 MG/ML,10ML ONE (11:57)
[2019-06-17] MEDS ORDERED: PROPOFOL 10 MG/ML, 50ML ONE (11:57)
[2019-06-17] MEDS ORDERED: CEFOTETAN 1 GM ONE (11:57)
[2019-06-17] MEDS ORDERED: HYDROmorphone/PF 5 MG, BUPIVACAINE/PF 0.5%, 30ML 62.5 ML in SODIUM CHLORIDE 0.9% 182.5 ML EPIDCONT SCH ×2 (12:50→13:18)
[2019-06-17] MEDS ORDERED: DO NOT GIVE XX SCH ×2 (13:00)
[2019-06-17] MEDS ORDERED: METOPROLOL 1 MG/ML, 5ML IV PRN (13:00)
[2019-06-17] MEDS ORDERED: MEPERIDINE/PF 25MG/ML,1ML IVPush PRN (13:00)
[2019-06-17] MEDS ORDERED: MIDAZOLAM 1 MG/ML, 2ML IV PRN (13:00)
[2019-06-17] MEDS ORDERED: hydrALAzine 20 MG/ML, 1ML IV PRN (13:00)
[2019-06-17] MEDS ORDERED: ALBUTEROL/IPRATROPIUM 2.5MG/0.5MG, 3 ML NPPB PRN (13:00)
[2019-06-17] MEDS ORDERED: NALBUPHINE 10 MG/ML, 1ML IVPush PRN (13:00)
[2019-06-17] MEDS ORDERED: PROMETHAZINE 25 MG/ML, 1ML IV PRN (13:00)
[2019-06-17] MEDS ORDERED: CEFOTETAN PMX 1GM/50ML 50 ML ONE (14:26)
[2019-06-17] MEDS ORDERED: NEOSTIGMINE 1 MG/ML, 10ML ONE (14:26)
[2019-06-17] MEDS ORDERED: PROPOFOL 10 MG/ML, 20ML ONE (14:26)
[2019-06-17] MEDS ORDERED: ROCURONIUM 10MG/ML,5ML ONE (14:26)
[2019-06-17] MEDS ORDERED: GLYCOPYRROLATE 0.2MG/1ML, 5ML ONE (14:26)
[2019-06-17] MEDS ORDERED: FENTANYL PF 100 MCG/2ML ONE ×2 (16:56→19:55)
[2019-06-17] MEDS ORDERED: SMOF TPN IV SCH (17:00)
[2019-06-17] MEDS ORDERED: FAT EMUL IV SCH (17:00)
[2019-06-17] MEDS ORDERED: AMINO ACID 10% IV SCH (17:00)
[2019-06-17] MEDS ORDERED: DEXTROSE 70% IV SCH (17:00)
[2019-06-17] MEDS ORDERED: [UNRECOGNIZED DRUG - OTHER] IV SCH (17:00)
[2019-06-17] MEDS ORDERED: CIPROFLOXACIN/DEXTROSE 200 MG/100 ML PREMIX IVPB STA (17:45)
[2019-06-17] MEDS ORDERED: METRONIDAZOLE PMX 500MG/100ML 100 ML ONE (18:00)
[2019-06-17] MEDS ORDERED: CIPROFLOXACIN/DEXT 200MG PMX 100 ML IVPB ONE (18:00)
[2019-06-17] MEDS ORDERED: POTASSIUM CHLORIDE 20 MEQ in D5%-0.45% NACL 1,000 ML IV SCH (19:34)
[2019-06-17] MEDS: FENTANYL PF 100 MCG/2ML IV PRN ×3 (19:50→20:26)
[2019-06-17] MEDS ORDERED: HYDROmorphone 1 MG/ML, 1ML INJ ONE (20:17)
[2019-06-17] MEDS: HYDROmorphone 2 MG/ML, 1ML IVPush PRN ×2 (20:20→20:50)
[2019-06-17] MEDS ORDERED: MIDAZOLAM 1 MG/ML, 5ML ONE (20:35)
[2019-06-17] MEDS ORDERED: MAGNESIUM SULFATE/D5W 100 ML IV ONE (21:00)
[2019-06-17] MEDS ORDERED: FAMOTIDINE 20 MG/2 ML IV SCH (21:00)
[2019-06-17] MEDS ORDERED: MAGNESIUM SULFATE PMX 4GM/100M 100 ML IV ONE (23:30)
[2019-06-18] MEDS: SODIUM CHLORIDE FLUSH 10ML SYR IVF SCH ×3 (00:19→21:36)
[2019-06-18] MEDS ORDERED: HYDROmorphone/PF 5 MG, BUPIVACAINE/PF 0.5%, 30ML 62.5 ML in SODIUM CHLORIDE 0.9% 187 ML EPIDCONT SCH (01:00)
[2019-06-18] MEDS: HYDROmorphone 1 MG/ML, 1ML INJ IV PRN ×10 (01:01→18:42)
[2019-06-18 02:10] VITALS: BP 73/32
[2019-06-18] MEDS ORDERED: SODIUM CHLORIDE 0.9%, 500ML IVBOLUS ONE ×2 (02:30→05:30)
[2019-06-18 03:09] LABS: ANION GAP 13 mmol/L (5-15); CALCIUM 7.1 mg/dL (8.5-10.1); CHLORIDE 112 mmol/L (98-107); CREATININE 1.55 mg/dL (0.55-1.02)
[2019-06-18] MEDS: MIDAZOLAM 1 MG/ML, 2ML IVPush PRN (03:14)
[2019-06-18] MEDS ORDERED: MAGNESIUM SULFATE/D5W 100 ML IV ONE (05:30)
[2019-06-18 06:25] LABS: MEAN CORPUSCULAR HEMOGLOBIN 29.4 pg (27.0-34.8); MEAN CORPUSCULAR VOLUME 88.9 fL (80-100); MEAN PLATELET VOLUME 7.5 fL (7.4-10.4); PLATELET COUNT 332 x10^3/uL (130-400); RED CELL DISTRIBUTION WIDTH 14.6 % (9.6-15.2)
[2019-06-18 06:39] LABS: ALBUMIN 1.5 g/dL (3.4-5.0); ANION GAP 11 mmol/L (5-15); CHLORIDE 111 mmol/L (98-107); CREATININE 1.74 mg/dL (0.55-1.02)
[2019-06-18 06:40] LABS: TROPONIN I 0.015 ng/mL (0.000-0.045)
[2019-06-18 06:56] LABS: MD YES
[2019-06-18 06:58] LABS: BAND#(MANUAL) 6.16 x10^3/uL; BANDS%(MANUAL) 36 % (0-7); LYMPHS% (MANUAL) 7 % (22-44); METAMYELOCYTES# (MANUAL) 0.86 x10^3/uL (0-0); METAMYELOCYTES% (MANUAL) 5 % (0-1); MONOS#(MANUAL) 0.51 x10^3/uL (0.3-2.7); MONOS% (MANUAL) 3 % (2-9); SEG#(MANUAL) 8.38 x10^3/uL (1.8-6.8); SEGS% (MANUAL) 49 % (42-75)
[2019-06-18 07:00] LABS: <PLATELET ESTIMATE> ADEQUATE; <PLT MORPHOLOGY> NORMAL PLT MORPH; PMNS WITH VACUOLES 1+; POLYCHROMASIA 1+
[2019-06-18] MEDS ORDERED: SODIUM CHLORIDE 0.9% 1,000ML IVBOLUS ONE ×5 (08:00→18:00)
[2019-06-18] MEDS: SODIUM CHLORIDE 0.9% 1,000 ML IV SCH ×3 (09:34→20:28)
[2019-06-18] MEDS: HYDROmorphone PCA 30 MG/30 ML IV PRN (10:01)
[2019-06-18] MEDS: PIPERACILLIN/TAZO/PMX 2.25GM 50 ML IV SCH ×3 (10:04→21:36)
[2019-06-18] MEDS: INSULIN LISPRO 100 UNITS/ML, PEN SQ-INSULIN SCH ×3 (10:50→21:39)
[2019-06-18] MEDS ORDERED: SODIUM BICARB 8.4%, 50ML SYRINGE ONE (11:01)
[2019-06-18 11:28] LABS: CREATININE,URINE RANDOM 26.4 mg/dL
[2019-06-18] MEDS ORDERED: SODIUM BICARBONATE 1 MEQ/ML, 50ML VIAL IVPush ONE (11:30)
[2019-06-18] MEDS ORDERED: FAMOTIDINE 20 MG/2 ML IVPush ONE (14:30)
[2019-06-18 14:57] LABS: ALANINE AMINOTRANSFERASE 13 U/L (12-78); ANION GAP 8 mmol/L (5-15); CALCIUM 6.3 mg/dL (8.5-10.1); CHLORIDE 114 mmol/L (98-107)
[2019-06-18 14:59] LABS: ALKALINE PHOSPHATASE 86 U/L (45-117); BILIRUBIN,TOTAL 1.4 mg/dL (0.2-1.0); TOTAL PROTEIN 4.2 g/dL (6.4-8.2)
[2019-06-18] MEDS ORDERED: NOREPINEPHRINE 8 MG in SODIUM CHLORIDE 0.9% 242 ML IV PRN (15:00)
[2019-06-18] MEDS: FILTER, DISP 1.2 MICRON FOR TPN/PVN IV PRN (16:38)
[2019-06-18] MEDS ORDERED: [UNRECOGNIZED DRUG - OTHER] IV SCH (17:00)
[2019-06-18] MEDS ORDERED: AMINO ACID 10% IV SCH (17:00)
[2019-06-18] MEDS ORDERED: SMOF TPN IV SCH (17:00)
[2019-06-18] MEDS ORDERED: FAT EMUL IV SCH (17:00)
[2019-06-18] MEDS ORDERED: DEXTROSE 70% IV SCH (17:00)
[2019-06-18 18:21] LABS: FREE T4 (FREE THYROXINE) 0.82 ng/dL (0.76-1.46)
[2019-06-18] MEDS ORDERED: CLINDAMYCIN 150 MG/ML, 6ML IM SCH (18:30)
[2019-06-18] MEDS ORDERED: CLINDAMYCIN 150 MG/ML, 6ML IV SCH (19:30)
[2019-06-18] MEDS: INSULIN REGULAR MEDIUM DOSE QDAY SQ-INSULIN SCH (19:38)
[2019-06-18] MEDS: CLINDAMYCIN PMX 600MG/50ML 50 ML IV SCH (20:28)
[2019-06-18] MEDS: INSULIN GLARGINE 100 UNITS/ML, PEN SQ-INSULIN SCH (21:38)
[2019-06-19] MEDS: PIPERACILLIN/TAZO/PMX 2.25GM 50 ML IV SCH ×4 (03:50→23:38)
[2019-06-19] MEDS: SODIUM CHLORIDE 0.9% 1,000 ML IV SCH (03:52)
[2019-06-19] MEDS: INSULIN LISPRO 100 UNITS/ML, PEN SQ-INSULIN SCH ×4 (04:16→20:02)
[2019-06-19] MEDS: CLINDAMYCIN PMX 600MG/50ML 50 ML IV SCH ×3 (04:17→21:39)
[2019-06-19 04:36] LABS: MEAN CORPUSCULAR HEMOGLOBIN 29.4 pg (27.0-34.8); MEAN CORPUSCULAR HGB CONC 33.2 g/dL (32.4-35.8); MEAN CORPUSCULAR VOLUME 88.5 fL (80-100); PLATELET COUNT 231 x10^3/uL (130-400); RED BLOOD COUNT 4.04 x10^6/uL (3.82-5.3); RED CELL DISTRIBUTION WIDTH 14.9 % (9.6-15.2)
[2019-06-19 04:38] LABS: ANION GAP 7 mmol/L (5-15); CALCIUM 6.8 mg/dL (8.5-10.1); CHLORIDE 112 mmol/L (98-107); CREATININE 1.99 mg/dL (0.55-1.02)
[2019-06-19 05:42] LABS: MD YES
[2019-06-19 05:44] LABS: BANDS%(MANUAL) 40 % (0-7); LYMPH#(MANUAL) 1.47 x10^3/uL (1-3.4); LYMPHS% (MANUAL) 6 % (22-44); MONOS#(MANUAL) 0.74 x10^3/uL (0.3-2.7); MONOS% (MANUAL) 3 % (2-9); PMNS WITH VACUOLES 1+; SEGS% (MANUAL) 51 % (42-75)
[2019-06-19 05:45] LABS: <PLATELET ESTIMATE> ADEQUATE; <RBC MORPHOLOGY> NORMAL; LARGE PLATELETS 1+
[2019-06-19] MEDS: ALBUMIN HUMAN 25% 100 ML IV SCH ×2 (08:25→17:41)
[2019-06-19] MEDS: INSULIN REGULAR MEDIUM DOSE QDAY SQ-INSULIN SCH ×3 (09:00→21:00)
[2019-06-19] MEDS: HYDROmorphone PCA 30 MG/30 ML IV PRN (09:01)
[2019-06-19] MEDS: SODIUM CHLORIDE FLUSH 10ML SYR IVF SCH ×2 (09:12→21:39)
[2019-06-19] MEDS: INSULIN GLARGINE 100 UNITS/ML, PEN SQ-INSULIN SCH (09:13)
[2019-06-19] MEDS: HYDROmorphone/PF 5 MG, BUPIVACAINE/PF 0.5%, 30ML 62.5 ML in SODIUM CHLORIDE 0.9% 187 ML EPIDCONT SCH (10:29)
[2019-06-19] MEDS ORDERED: AMINO ACID 10% IV SCH (17:00)
[2019-06-19] MEDS ORDERED: SMOF TPN IV SCH (17:00)
[2019-06-19] MEDS ORDERED: DEXTROSE 70% IV SCH (17:00)
[2019-06-19] MEDS ORDERED: [UNRECOGNIZED DRUG - OTHER] IV SCH (17:00)
[2019-06-19] MEDS ORDERED: FAT EMUL IV SCH (17:00)
[2019-06-19] MEDS: FILTER, DISP 1.2 MICRON FOR TPN/PVN IV PRN (17:42)
[2019-06-19] MEDS: HYDROmorphone 1 MG/ML, 1ML INJ IV PRN (22:02)
[2019-06-20] MEDS: ALBUMIN HUMAN 25% 100 ML IV SCH ×3 (00:47→16:28)
[2019-06-20] MEDS: INSULIN REGULAR MEDIUM DOSE QDAY SQ-INSULIN SCH (03:00)
[2019-06-20] MEDS ORDERED: CALCIUM GLUCONATE 4.6 MEQ in SODIUM CHLORIDE 0.9% 50 ML IV ONE (03:00)
[2019-06-20 03:05] LABS: MEAN CORPUSCULAR VOLUME 88.3 fL (80-100); MEAN PLATELET VOLUME 8.1 fL (7.4-10.4); PLATELET COUNT 125 x10^3/uL (130-400); RED BLOOD COUNT 2.48 x10^6/uL (3.82-5.3); RED CELL DISTRIBUTION WIDTH 14.8 % (9.6-15.2)
[2019-06-20 03:10] LABS: ANION GAP 7 mmol/L (5-15); CHLORIDE 104 mmol/L (98-107); CREATININE 2.25 mg/dL (0.55-1.02)
[2019-06-20] MEDS: INSULIN LISPRO 100 UNITS/ML, PEN SQ-INSULIN SCH ×4 (03:16→22:00)
[2019-06-20 03:29] LABS: MD YES
[2019-06-20 03:31] LABS: ANISOCYTOSIS 1+; BAND#(MANUAL) 1.85 x10^3/uL; BANDS%(MANUAL) 12 % (0-7); LYMPH#(MANUAL) 0.46 x10^3/uL (1-3.4); LYMPHS% (MANUAL) 3 % (22-44); MONOS#(MANUAL) 0.15 x10^3/uL (0.3-2.7); MONOS% (MANUAL) 1 % (2-9); SEG#(MANUAL) 12.94 x10^3/uL (1.8-6.8); SEGS% (MANUAL) 84 % (42-75)
[2019-06-20 03:32] LABS: <PLATELET ESTIMATE> ADEQUATE; LARGE PLATELETS 1+; PMNS WITH VACUOLES 1+
[2019-06-20] MEDS ORDERED: POTASSIUM CHLORIDE 40 MEQ in SODIUM CHLORIDE 0.9% 100 ML IV ONE (04:00)
[2019-06-20] MEDS: PIPERACILLIN/TAZO/PMX 2.25GM 50 ML IV SCH ×4 (05:17→23:30)
[2019-06-20 06:16] VITALS: BP 131/85
[2019-06-20] MEDS: CLINDAMYCIN PMX 600MG/50ML 50 ML IV SCH (06:20)
[2019-06-20 06:31] VITALS: BP 134/87
[2019-06-20 08:25] VITALS: BP 129/79
[2019-06-20] MEDS: HYDROmorphone 1 MG/ML, 1ML INJ IV PRN ×2 (08:31→12:36)
[2019-06-20] MEDS: SODIUM CHLORIDE FLUSH 10ML SYR IVF SCH ×2 (08:32→20:31)
[2019-06-20] MEDS: ONDANSETRON 2MG/ML, 2ML IVPush PRN (13:19)
[2019-06-20] MEDS ORDERED: ALBUTEROL SULFATE 2.5 MG/3 ML ONE (13:58)
[2019-06-20] MEDS: ALBUTEROL SULFATE 2.5 MG/3 ML NPPB SCH ×2 (14:00→19:24)
[2019-06-20] MEDS: KETOROLAC 30 MG/1 ML IVPush PRN ×2 (14:16→20:33)
[2019-06-20] MEDS: MIDAZOLAM 1 MG/ML, 2ML IVPush PRN (16:38)
[2019-06-20] MEDS ORDERED: FAT EMUL IV SCH (17:00)
[2019-06-20] MEDS ORDERED: SMOF TPN IV SCH (17:00)
[2019-06-20] MEDS ORDERED: [UNRECOGNIZED DRUG - OTHER] IV SCH (17:00)
[2019-06-20] MEDS ORDERED: AMINO ACID 10% IV SCH (17:00)
[2019-06-20] MEDS ORDERED: DEXTROSE 70% IV SCH (17:00)
[2019-06-20] MEDS: FILTER, DISP 1.2 MICRON FOR TPN/PVN IV PRN (17:42)
[2019-06-21] MEDS: ALBUMIN HUMAN 25% 100 ML IV SCH ×3 (00:59→17:31)
[2019-06-21] MEDS: INSULIN LISPRO 100 UNITS/ML, PEN SQ-INSULIN SCH ×3 (04:00→18:57)
[2019-06-21 04:07] LABS: MEAN CORPUSCULAR HEMOGLOBIN 30.9 pg (27.0-34.8); MEAN CORPUSCULAR HGB CONC 34.7 g/dL (32.4-35.8); MEAN CORPUSCULAR VOLUME 89.3 fL (80-100); MEAN PLATELET VOLUME 8.4 fL (7.4-10.4); PLATELET COUNT 123 x10^3/uL (130-400); RED BLOOD COUNT 2.62 x10^6/uL (3.82-5.3); RED CELL DISTRIBUTION WIDTH 14.5 % (9.6-15.2)
[2019-06-21 04:19] LABS: ANION GAP 7 mmol/L (5-15); CALCIUM 9.3 mg/dL (8.5-10.1); CHLORIDE 99 mmol/L (98-107); CREATININE 2.22 mg/dL (0.55-1.02)
[2019-06-21 04:30] VITALS: BP 125/78
[2019-06-21] MEDS ORDERED: POTASSIUM CHLORIDE 40 MEQ in SODIUM CHLORIDE 0.9% 100 ML IV ONE (04:30)
[2019-06-21 04:56] LABS: MD YES
[2019-06-21 05:00] LABS: ANISOCYTOSIS 1+; BAND#(MANUAL) 0.34 x10^3/uL; BANDS%(MANUAL) 2 % (0-7); EOS#(MANUAL) 0.17 x10^3/uL (0.0-0.4); EOS% (MANUAL) 1 % (1-7); LYMPH#(MANUAL) 1.37 x10^3/uL (1-3.4); LYMPHS% (MANUAL) 8 % (22-44); MONOS#(MANUAL) 0.51 x10^3/uL (0.3-2.7); MONOS% (MANUAL) 3 % (2-9); SEG#(MANUAL) 14.71 x10^3/uL (1.8-6.8); SEGS% (MANUAL) 86 % (42-75)
[2019-06-21 05:01] LABS: <PLATELET ESTIMATE> ADEQUATE; <PLT MORPHOLOGY> NORMAL PLT MORPH; PMNS WITH VACUOLES 1+
[2019-06-21] MEDS: PIPERACILLIN/TAZO/PMX 2.25GM 50 ML IV SCH ×3 (05:30→17:31)
[2019-06-21] MEDS: ALBUTEROL SULFATE 2.5 MG/3 ML NPPB SCH ×4 (07:15→18:34)
[2019-06-21] MEDS: SODIUM CHLORIDE FLUSH 10ML SYR IVF SCH (09:02)
[2019-06-21] MEDS: KSCALE TO 4.0 IV SCH ×2 (11:00→17:00)
[2019-06-21 12:22] VITALS: BP 129/78
[2019-06-21] MEDS ORDERED: DEXTROSE 70% IV SCH (17:00)
[2019-06-21] MEDS ORDERED: FAT EMUL IV SCH (17:00)
[2019-06-21] MEDS ORDERED: [UNRECOGNIZED DRUG - OTHER] IV SCH (17:00)
[2019-06-21] MEDS ORDERED: SMOF TPN IV SCH (17:00)
[2019-06-21] MEDS ORDERED: AMINO ACID 10% IV SCH (17:00)
[2019-06-21] MEDS ORDERED: POTASSIUM CHLORIDE PMX 100 ML IV ONE (17:30)
[2019-06-21] MEDS: FILTER, DISP 1.2 MICRON FOR TPN/PVN IV PRN (18:57)
[2019-06-21 20:38] VITALS: BP 153/86
[2019-06-21] MEDS: HYDROmorphone 1 MG/ML, 1ML INJ IV PRN (20:45)
[2019-06-22] MEDS: PIPERACILLIN/TAZO/PMX 2.25GM 50 ML IV SCH ×4 (00:15→20:29)
[2019-06-22] MEDS: HYDROmorphone 1 MG/ML, 1ML INJ IV PRN ×4 (00:15→06:58)
[2019-06-22] MEDS: INSULIN LISPRO 100 UNITS/ML, PEN SQ-INSULIN SCH ×5 (00:31→23:43)
[2019-06-22] MEDS: SODIUM CHLORIDE FLUSH 10ML SYR IVF SCH ×3 (00:31→20:30)
[2019-06-22] MEDS: HYDROmorphone/PF 5 MG, BUPIVACAINE/PF 0.5%, 30ML 62.5 ML in SODIUM CHLORIDE 0.9% 187 ML EPIDCONT SCH (00:55)
[2019-06-22 01:20] VITALS: BP 134/88
[2019-06-22] MEDS: ALBUMIN HUMAN 25% 100 ML IV SCH (01:24)
[2019-06-22] MEDS: KSCALE TO 4.0 IV SCH ×2 (02:00→06:09)
[2019-06-22 05:48] LABS: MEAN CORPUSCULAR HEMOGLOBIN 30.5 pg (27.0-34.8); MEAN CORPUSCULAR HGB CONC 34.3 g/dL (32.4-35.8); MEAN PLATELET VOLUME 9.3 fL (7.4-10.4); PLATELET COUNT 167 x10^3/uL (130-400); RED BLOOD COUNT 2.74 x10^6/uL (3.82-5.3)
[2019-06-22 05:56] LABS: ALANINE AMINOTRANSFERASE 16 U/L (12-78); ALBUMIN 3.6 g/dL (3.4-5.0); ANION GAP 9 mmol/L (5-15); CALCIUM 9.4 mg/dL (8.5-10.1); CHLORIDE 97 mmol/L (98-107); CREATININE 3.79 mg/dL (0.55-1.02)
[2019-06-22 05:59] LABS: ALKALINE PHOSPHATASE 94 U/L (45-117); BILIRUBIN,TOTAL 3.5 mg/dL (0.2-1.0); TOTAL PROTEIN 7.3 g/dL (6.4-8.2)
[2019-06-22 06:01] LABS: BASOPHILS % (AUTO) 0 % (0-1); EOSINOPHILS # (AUTO) 0.15 x10^3/uL (0-0.4); EOSINOPHILS % (AUTO) 1 % (1-7); LYMPHOCYTES # (AUTO) 1.12 x10^3/uL (1-3.4); LYMPHOCYTES % (AUTO) 7 % (22-44); MD SCAN; MONOCYTES # (AUTO) 0.37 x10^3/uL (0.2-0.8); MONOCYTES % (AUTO) 2 % (2-9); NEUTROPHILS # (AUTO) 13.99 x10^3/uL (1.8-6.8); NEUTROPHILS % (AUTO) 90 % (42-75)
[2019-06-22] MEDS: ALBUTEROL SULFATE 2.5 MG/3 ML NPPB SCH ×4 (07:20→19:10)
[2019-06-22 08:10] VITALS: BP 142/92
[2019-06-22] MEDS ORDERED: SODIUM CHLORIDE 0.9% 1,000ML IVBOLUS ONE (09:00)
[2019-06-22] MEDS: SODIUM CHLORIDE 0.9% 1,000 ML IV SCH ×3 (10:32→23:44)
[2019-06-22 12:37] VITALS: BP 147/98
[2019-06-22 14:37] LABS: ANION GAP 9 mmol/L (5-15); CALCIUM 9.1 mg/dL (8.5-10.1); CHLORIDE 102 mmol/L (98-107); CREATININE 3.51 mg/dL (0.55-1.02)
[2019-06-22] MEDS ORDERED: LORazepam 2 MG/ML, 1ML ONE (14:39)
[2019-06-22] MEDS ORDERED: LORazepam 2 MG/ML, 1ML IVPush PRN (15:00)
[2019-06-22] MEDS ORDERED: [UNRECOGNIZED DRUG - OTHER] IV SCH (17:00)
[2019-06-22] MEDS ORDERED: FAT EMUL IV SCH ×2 (17:00)
[2019-06-22] MEDS ORDERED: DEXTROSE 70% IV SCH ×2 (17:00)
[2019-06-22] MEDS ORDERED: AMINO ACID 10% IV SCH ×2 (17:00)
[2019-06-22] MEDS ORDERED: SMOF TPN IV SCH ×2 (17:00)
[2019-06-22] MEDS ORDERED: [UNRECOGNIZED DRUG - OTHER] IV SCH (17:00)
[2019-06-22] MEDS: FILTER, DISP 1.2 MICRON FOR TPN/PVN IV PRN (17:39)
[2019-06-22 18:53] VITALS: BP 141/87
[2019-06-22] MEDS: ONDANSETRON 2MG/ML, 2ML IVPush PRN (20:42)
[2019-06-22 23:45] VITALS: BP 149/92
[2019-06-23] MEDS: HYDROmorphone/PF 5 MG, BUPIVACAINE/PF 0.5%, 30ML 62.5 ML in SODIUM CHLORIDE 0.9% 187 ML EPIDCONT SCH (01:01)
[2019-06-23] MEDS: ONDANSETRON 2MG/ML, 2ML IVPush PRN (02:51)
[2019-06-23 03:49] VITALS: BP 126/86
[2019-06-23 06:38] LABS: MEAN CORPUSCULAR HEMOGLOBIN 30.9 pg (27.0-34.8); MEAN CORPUSCULAR HGB CONC 34.5 g/dL (32.4-35.8); MEAN CORPUSCULAR VOLUME 89.4 fL (80-100); MEAN PLATELET VOLUME 9.4 fL (7.4-10.4); PLATELET COUNT 170 x10^3/uL (130-400); RED BLOOD COUNT 2.61 x10^6/uL (3.82-5.3); RED CELL DISTRIBUTION WIDTH 15.4 % (9.6-15.2)
[2019-06-23 06:51] LABS: ANION GAP 9 mmol/L (5-15); CALCIUM 8.6 mg/dL (8.5-10.1); CHLORIDE 107 mmol/L (98-107); CREATININE 2.98 mg/dL (0.55-1.02); TRIGLYCERIDES 227 mg/dL (50-200)
[2019-06-23] MEDS: INSULIN LISPRO 100 UNITS/ML, PEN SQ-INSULIN SCH ×3 (06:51→17:47)
[2019-06-23 06:56] LABS: BASOPHILS % (AUTO) 0 % (0-1); EOSINOPHILS # (AUTO) 0.09 x10^3/uL (0-0.4); EOSINOPHILS % (AUTO) 1 % (1-7); LYMPHOCYTES # (AUTO) 0.74 x10^3/uL (1-3.4); LYMPHOCYTES % (AUTO) 5 % (22-44); MD SCAN; MONOCYTES # (AUTO) 0.86 x10^3/uL (0.2-0.8); MONOCYTES % (AUTO) 6 % (2-9); NEUTROPHILS # (AUTO) 13.67 x10^3/uL (1.8-6.8); NEUTROPHILS % (AUTO) 89 % (42-75)
[2019-06-23 06:58] LABS: PREALBUMIN 11.5 mg/dL (20.0-40.0)
[2019-06-23] MEDS: ALBUTEROL SULFATE 2.5 MG/3 ML NPPB SCH ×4 (07:24→21:20)
[2019-06-23 07:42] VITALS: BP 120/86
[2019-06-23] MEDS: PIPERACILLIN/TAZO/PMX 2.25GM 50 ML IV SCH ×2 (08:02→20:41)
[2019-06-23] MEDS: SODIUM CHLORIDE 0.9% 1,000 ML IV SCH ×2 (08:03→15:40)
[2019-06-23] MEDS: SODIUM CHLORIDE FLUSH 10ML SYR IVF SCH ×2 (08:03→23:16)
[2019-06-23] MEDS ORDERED: PHARMACY MAY ADJ FOR RENAL FX MC PRN (10:00)
[2019-06-23] MEDS ORDERED: hydrOXyzine 10MG TABLET PO PRN (10:00)
[2019-06-23 13:43] VITALS: BP 120/86
[2019-06-23 15:05] LABS: ANION GAP 10 mmol/L (5-15); CALCIUM 8.8 mg/dL (8.5-10.1); CHLORIDE 108 mmol/L (98-107); CREATININE 3.18 mg/dL (0.55-1.02)
[2019-06-23] MEDS ORDERED: LIDOCAINE 1%, 20ML ONE (15:54)
[2019-06-23] MEDS ORDERED: NALOXONE 1 MG/ML, 2ML ONE (16:10)
[2019-06-23] MEDS ORDERED: MIDAZOLAM 1 MG/ML, 5ML ONE (16:10)
[2019-06-23] MEDS ORDERED: FLUMAZENIL 0.1 MG/1 ML, 5ML ONE (16:10)
[2019-06-23] MEDS ORDERED: FENTANYL PF 100 MCG/2ML ONE (16:10)
[2019-06-23] MEDS ORDERED: [UNRECOGNIZED DRUG - OTHER] IV SCH (17:00)
[2019-06-23] MEDS ORDERED: AMINO ACID 10% IV SCH (17:00)
[2019-06-23] MEDS ORDERED: DEXTROSE 70% IV SCH (17:00)
[2019-06-23] MEDS ORDERED: SMOF TPN IV SCH (17:00)
[2019-06-23] MEDS ORDERED: FAT EMUL IV SCH (17:00)
[2019-06-23] MEDS: FILTER, DISP 1.2 MICRON FOR TPN/PVN IV PRN (17:39)
[2019-06-23 19:39] VITALS: BP 130/87
[2019-06-24] VITALS (10 sets, daily range): BP systolic 122–147; BP diastolic 68–85
[2019-06-24] MEDS: INSULIN LISPRO 100 UNITS/ML, PEN SQ-INSULIN SCH ×4 (00:35→16:31)
[2019-06-24] MEDS: SODIUM CHLORIDE 0.9% 1,000 ML IV SCH ×3 (00:35→18:31)
[2019-06-24 04:03] LABS: ANION GAP 10 mmol/L (5-15); CALCIUM 8.5 mg/dL (8.5-10.1); CHLORIDE 112 mmol/L (98-107); CREATININE 1.99 mg/dL (0.55-1.02)
[2019-06-24 04:08] LABS: MEAN CORPUSCULAR HGB CONC 33.7 g/dL (32.4-35.8); MEAN CORPUSCULAR VOLUME 89.2 fL (80-100); MEAN PLATELET VOLUME 9.5 fL (7.4-10.4); PLATELET COUNT 230 x10^3/uL (130-400); RED BLOOD COUNT 2.35 x10^6/uL (3.82-5.3); RED CELL DISTRIBUTION WIDTH 15.3 % (9.6-15.2)
[2019-06-24 05:05] LABS: MD YES
[2019-06-24 05:06] LABS: BANDS%(MANUAL) 2 % (0-7); EOS% (MANUAL) 4 % (1-7); LYMPH#(MANUAL) 1.64 x10^3/uL (1-3.4); LYMPHS% (MANUAL) 11 % (22-44); METAMYELOCYTES% (MANUAL) 2 % (0-1); MONOS% (MANUAL) 4 % (2-9); MYELOCYTES# (MANUAL) 0.15 x10^3/uL (0-0); MYELOCYTES% (MANUAL) 1 % (0-0); SEG#(MANUAL) 11.32 x10^3/uL (1.8-6.8); SEGS% (MANUAL) 76 % (42-75)
[2019-06-24 05:08] LABS: <PLATELET ESTIMATE> ADEQUATE; <PLT MORPHOLOGY> NORMAL PLT MORPH; ANISOCYTOSIS 1+
[2019-06-24] MEDS: DIAZEPAM 5 MG/ML, 2ML IV PRN (05:18)
[2019-06-24] MEDS: ALBUTEROL SULFATE 2.5 MG/3 ML NPPB SCH (07:00)
[2019-06-24] MEDS: ALBUTEROL SULFATE 2.5 MG/3 ML IPPB SCH ×3 (11:00→22:15)
[2019-06-24] MEDS: PIPERACILLIN/TAZO/PMX 2.25GM 50 ML IV SCH ×2 (11:11→23:00)
[2019-06-24] MEDS: SODIUM CHLORIDE FLUSH 10ML SYR IVF SCH (11:12)
[2019-06-24] MEDS: ONDANSETRON 2MG/ML, 2ML IVPush PRN ×4 (11:22→22:38)
[2019-06-24 14:24] LABS: MEAN CORPUSCULAR HEMOGLOBIN 31.5 pg (27.0-34.8); MEAN CORPUSCULAR HGB CONC 33.1 g/dL (32.4-35.8); MEAN CORPUSCULAR VOLUME 95.1 fL (80-100); MEAN PLATELET VOLUME 10.5 fL (7.4-10.4); PLATELET COUNT 249 x10^3/uL (130-400); RED BLOOD COUNT 2.15 x10^6/uL (3.82-5.3); RED CELL DISTRIBUTION WIDTH 16.2 % (9.6-15.2)
[2019-06-24 14:53] LABS: MD YES
[2019-06-24 14:56] LABS: ANISOCYTOSIS 1+; BANDS%(MANUAL) 8 % (0-7); EOS#(MANUAL) 0.65 x10^3/uL (0.0-0.4); EOS% (MANUAL) 4 % (1-7); LYMPH#(MANUAL) 0.49 x10^3/uL (1-3.4); LYMPHS% (MANUAL) 3 % (22-44); METAMYELOCYTES# (MANUAL) 0.33 x10^3/uL (0-0); METAMYELOCYTES% (MANUAL) 2 % (0-1); MONOS#(MANUAL) 0.49 x10^3/uL (0.3-2.7); MONOS% (MANUAL) 3 % (2-9); MYELOCYTES# (MANUAL) 0.16 x10^3/uL (0-0); MYELOCYTES% (MANUAL) 1 % (0-0); SEG#(MANUAL) 12.88 x10^3/uL (1.8-6.8); SEGS% (MANUAL) 79 % (42-75)
[2019-06-24 14:57] LABS: POLYCHROMASIA 1+; TEAR DROPS 1+
[2019-06-24 14:59] LABS: ROULEAUX 1+; TOXIC GRAN 1+
[2019-06-24 15:00] LABS: <PLATELET ESTIMATE> ADEQUATE; LARGE PLATELETS 1+; PMNS WITH VACUOLES 1+
[2019-06-24] MEDS ORDERED: SMOF TPN IV SCH (17:00)
[2019-06-24] MEDS ORDERED: FAT EMUL IV SCH (17:00)
[2019-06-24] MEDS ORDERED: [UNRECOGNIZED DRUG - OTHER] IV SCH (17:00)
[2019-06-24] MEDS ORDERED: DEXTROSE 70% IV SCH (17:00)
[2019-06-24] MEDS ORDERED: AMINO ACID 10% IV SCH (17:00)
[2019-06-25] MEDS: INSULIN LISPRO 100 UNITS/ML, PEN SQ-INSULIN SCH ×5 (00:10→23:02)
[2019-06-25 00:15] VITALS: BP 130/84
[2019-06-25] MEDS: SODIUM CHLORIDE 0.9% 1,000 ML IV SCH ×4 (03:30→20:02)
[2019-06-25] MEDS: SODIUM CHLORIDE FLUSH 10ML SYR IVF SCH ×2 (05:11→09:00)
[2019-06-25] MEDS: ONDANSETRON 2MG/ML, 2ML IVPush PRN (05:11)
[2019-06-25 06:41] LABS: MEAN CORPUSCULAR HEMOGLOBIN 30.4 pg (27.0-34.8); MEAN CORPUSCULAR HGB CONC 34.3 g/dL (32.4-35.8); MEAN CORPUSCULAR VOLUME 88.6 fL (80-100); MEAN PLATELET VOLUME 9.8 fL (7.4-10.4); PLATELET COUNT 270 x10^3/uL (130-400); RED BLOOD COUNT 3.28 x10^6/uL (3.82-5.3); RED CELL DISTRIBUTION WIDTH 14.8 % (9.6-15.2)
[2019-06-25 06:49] LABS: ANION GAP 9 mmol/L (5-15); CALCIUM 9.1 mg/dL (8.5-10.1); CHLORIDE 111 mmol/L (98-107); CREATININE 0.92 mg/dL (0.55-1.02)
[2019-06-25] MEDS: ALBUTEROL SULFATE 2.5 MG/3 ML IPPB SCH ×4 (07:03→20:10)
[2019-06-25 07:15] VITALS: BP 117/64
[2019-06-25 07:44] LABS: MD YES
[2019-06-25 07:45] LABS: BAND#(MANUAL) 0.21 x10^3/uL; BANDS%(MANUAL) 1 % (0-7); EOS#(MANUAL) 0.21 x10^3/uL (0.0-0.4); EOS% (MANUAL) 1 % (1-7); LYMPH#(MANUAL) 1.44 x10^3/uL (1-3.4); LYMPHS% (MANUAL) 7 % (22-44); METAMYELOCYTES# (MANUAL) 0.62 x10^3/uL (0-0); METAMYELOCYTES% (MANUAL) 3 % (0-1); MONOS#(MANUAL) 0.82 x10^3/uL (0.3-2.7); MONOS% (MANUAL) 4 % (2-9); MYELOCYTES# (MANUAL) 0.62 x10^3/uL (0-0); MYELOCYTES% (MANUAL) 3 % (0-0); SEG#(MANUAL) 16.69 x10^3/uL (1.8-6.8); SEGS% (MANUAL) 81 % (42-75)
[2019-06-25 07:46] LABS: <PLATELET ESTIMATE> ADEQUATE; ANISOCYTOSIS 1+; POLYCHROMASIA 1+; TOXIC GRAN 1+
[2019-06-25 07:47] LABS: LARGE PLATELETS 1+
[2019-06-25] MEDS: PIPERACILLIN/TAZO/PMX 2.25GM 50 ML IV SCH (10:11)
[2019-06-25] MEDS ORDERED: DIPHENHYDRAMINE 50 MG/ML, 1ML IVPush PRN (11:00)
[2019-06-25] MEDS: ONDANSETRON 2MG/ML, 2ML IV SCH ×3 (13:20→22:56)
[2019-06-25 13:34] VITALS: BP 120/80
[2019-06-25] MEDS ORDERED: AMINO ACID 10% IV SCH (17:00)
[2019-06-25] MEDS ORDERED: FILTER, DISP 1.2 MICRON FOR TPN/PVN IV PRN (17:00)
[2019-06-25] MEDS ORDERED: DEXTROSE 70% IV SCH (17:00)
[2019-06-25] MEDS ORDERED: SMOF TPN IV SCH (17:00)
[2019-06-25] MEDS ORDERED: [UNRECOGNIZED DRUG - OTHER] IV SCH (17:00)
[2019-06-25] MEDS ORDERED: FAT EMUL IV SCH (17:00)
[2019-06-25] MEDS: DIPHENHYDRAMINE 50 MG/ML, 1ML IVPush PRN ×2 (17:33→22:56)
[2019-06-25] MEDS: PIPERACILLIN/TAZO/PMX 3.375GM 50 ML IV SCH ×2 (17:33→22:55)
[2019-06-25 19:03] VITALS: BP 126/88
[2019-06-25] MEDS: DIAZEPAM 5 MG/ML, 2ML IV PRN (20:01)
[2019-06-26 00:12] VITALS: BP 128/81
[2019-06-26] MEDS: SODIUM CHLORIDE 0.9% 1,000 ML IV SCH ×3 (03:21→17:56)
[2019-06-26 03:52] LABS: MEAN CORPUSCULAR HEMOGLOBIN 29.8 pg (27.0-34.8); MEAN CORPUSCULAR HGB CONC 33.6 g/dL (32.4-35.8); MEAN CORPUSCULAR VOLUME 88.8 fL (80-100); MEAN PLATELET VOLUME 9.8 fL (7.4-10.4); PLATELET COUNT 342 x10^3/uL (130-400); RED BLOOD COUNT 3.69 x10^6/uL (3.82-5.3)
[2019-06-26] MEDS: HYDROmorphone 1 MG/ML, 1ML INJ IV PRN ×11 (03:56→23:25)
[2019-06-26 03:57] LABS: ANION GAP 11 mmol/L (5-15); CALCIUM 9.4 mg/dL (8.5-10.1); CHLORIDE 111 mmol/L (98-107); CREATININE 1.02 mg/dL (0.55-1.02)
[2019-06-26 04:03] LABS: MD YES
[2019-06-26 04:04] LABS: ANISOCYTOSIS 1+; BANDS%(MANUAL) 3 % (0-7); LYMPH#(MANUAL) 1.33 x10^3/uL (1-3.4); LYMPHS% (MANUAL) 5 % (22-44); METAMYELOCYTES# (MANUAL) 0.27 x10^3/uL (0-0); METAMYELOCYTES% (MANUAL) 1 % (0-1); MONOS#(MANUAL) 1.06 x10^3/uL (0.3-2.7); MONOS% (MANUAL) 4 % (2-9); MYELOCYTES# (MANUAL) 0.53 x10^3/uL (0-0); MYELOCYTES% (MANUAL) 2 % (0-0); REACTIVE LYMPHS # (MANUAL) 0.53 x10^3/uL (0-0); REACTIVE LYMPHS % (MANUAL) 2 % (0-0); SEGS% (MANUAL) 83 % (42-75); TOXIC GRAN 1+
[2019-06-26 04:06] LABS: <PLATELET ESTIMATE> ADEQUATE; LARGE PLATELETS 1+
[2019-06-26] MEDS: DIPHENHYDRAMINE 50 MG/ML, 1ML IVPush PRN ×2 (05:11→16:01)
[2019-06-26] MEDS: PIPERACILLIN/TAZO/PMX 3.375GM 50 ML IV SCH ×3 (05:11→19:42)
[2019-06-26] MEDS: ONDANSETRON 2MG/ML, 2ML IV SCH ×4 (05:11→23:29)
[2019-06-26 05:20] VITALS: BP 130/88
[2019-06-26] MEDS: INSULIN LISPRO 100 UNITS/ML, PEN SQ-INSULIN SCH (05:41)
[2019-06-26] MEDS: ALBUTEROL SULFATE 2.5 MG/3 ML IPPB SCH ×4 (06:53→19:15)
[2019-06-26 08:09] VITALS: BP 124/75
[2019-06-26] MEDS ORDERED: POTASSIUM CHLORIDE 40 MEQ in SODIUM CHLORIDE 0.9% 500 ML IV ONE (11:00)
[2019-06-26 13:23] LABS: ALBUMIN 2.6 g/dL (3.4-5.0); BILIRUBIN, DIRECT 4.5 mg/dL (0.1-0.2)
[2019-06-26 13:25] LABS: BILIRUBIN,INDIRECT 1.2 mg/dL (0.0-2.0); BILIRUBIN,TOTAL 5.7 mg/dL (0.2-1.0); TOTAL PROTEIN 7.9 g/dL (6.4-8.2)
[2019-06-26 13:48] VITALS: BP 146/94
[2019-06-26] MEDS ORDERED: DEXTROSE 70% IV SCH (17:00)
[2019-06-26] MEDS ORDERED: FAT EMUL IV SCH (17:00)
[2019-06-26] MEDS ORDERED: SMOF TPN IV SCH (17:00)
[2019-06-26] MEDS ORDERED: AMINO ACID 10% IV SCH (17:00)
[2019-06-26] MEDS ORDERED: FILTER, DISP 1.2 MICRON FOR TPN/PVN IV PRN (17:00)
[2019-06-26] MEDS ORDERED: [UNRECOGNIZED DRUG - OTHER] IV SCH (17:00)
[2019-06-26 19:43] VITALS: BP 135/80
[2019-06-26] MEDS ORDERED: OMNIPAQUE 350 MG/ML, 100ML BOTTLE ONE (21:30)
[2019-06-27] MEDS: HYDROmorphone 1 MG/ML, 1ML INJ IV PRN ×7 (00:38→07:37)
[2019-06-27 00:45] VITALS: BP 125/87
[2019-06-27] MEDS: PIPERACILLIN/TAZO/PMX 3.375GM 50 ML IV SCH ×4 (01:24→19:48)
[2019-06-27] MEDS: SODIUM CHLORIDE 0.9% 1,000 ML IV SCH ×4 (01:24→23:27)
[2019-06-27 05:32] LABS: ANION GAP 6 mmol/L (5-15); CALCIUM 8.4 mg/dL (8.5-10.1); CHLORIDE 109 mmol/L (98-107); CREATININE 0.67 mg/dL (0.55-1.02)
[2019-06-27] MEDS: ONDANSETRON 2MG/ML, 2ML IV SCH ×4 (05:59→23:28)
[2019-06-27 07:01] LABS: MEAN CORPUSCULAR HEMOGLOBIN 29.9 pg (27.0-34.8); MEAN CORPUSCULAR HGB CONC 33.2 g/dL (32.4-35.8); MEAN CORPUSCULAR VOLUME 90.3 fL (80-100); MEAN PLATELET VOLUME 10.5 fL (7.4-10.4); PLATELET COUNT 344 x10^3/uL (130-400); RED BLOOD COUNT 3.38 x10^6/uL (3.82-5.3); RED CELL DISTRIBUTION WIDTH 15.4 % (9.6-15.2)
[2019-06-27 07:11] VITALS: BP 138/93
[2019-06-27] MEDS: INSULIN LISPRO 100 UNITS/ML, PEN SQ-INSULIN SCH (07:21)
[2019-06-27] MEDS ORDERED: ALBUTEROL SULFATE 2.5 MG/3 ML IPPB PRN (07:30)
[2019-06-27 07:38] LABS: MD YES
[2019-06-27] MEDS: DIPHENHYDRAMINE 50 MG/ML, 1ML IVPush PRN ×3 (07:38→19:21)
[2019-06-27 07:41] LABS: METAMYELOCYTES# (MANUAL) 0.52 x10^3/uL (0-0); METAMYELOCYTES% (MANUAL) 2 % (0-1)
[2019-06-27 07:42] LABS: BAND#(MANUAL) 0.52 x10^3/uL; BANDS%(MANUAL) 2 % (0-7); LYMPH#(MANUAL) 0.77 x10^3/uL (1-3.4); LYMPHS% (MANUAL) 3 % (22-44); MONOS#(MANUAL) 1.55 x10^3/uL (0.3-2.7); MONOS% (MANUAL) 6 % (2-9); SEG#(MANUAL) 22.45 x10^3/uL (1.8-6.8); SEGS% (MANUAL) 87 % (42-75)
[2019-06-27 07:43] LABS: ANISOCYTOSIS 1+
[2019-06-27 07:44] LABS: <PLATELET ESTIMATE> ADEQUATE; LARGE PLATELETS 1+; POLYCHROMASIA 1+; TOXIC GRAN 1+
[2019-06-27 08:12] LABS: ALBUMIN 2.5 g/dL (3.4-5.0); BILIRUBIN, DIRECT 4.4 mg/dL (0.1-0.2)
[2019-06-27 08:13] LABS: BILIRUBIN,INDIRECT 1.4 mg/dL (0.0-2.0); BILIRUBIN,TOTAL 5.8 mg/dL (0.2-1.0); TOTAL PROTEIN 7.5 g/dL (6.4-8.2)
[2019-06-27] MEDS: MORPHINE SULFATE 4 MG/ML, 1ML IV PRN ×3 (09:00→14:17)
[2019-06-27] MEDS ORDERED: KETOROLAC 30 MG/1 ML IVPush ONE (09:30)
[2019-06-27 13:34] VITALS: BP 132/83
[2019-06-27] MEDS: FILTER, DISP 1.2 MICRON FOR TPN/PVN IV PRN (16:18)
[2019-06-27] MEDS ORDERED: SMOF TPN IV SCH (17:00)
[2019-06-27] MEDS ORDERED: DEXTROSE 70% IV SCH (17:00)
[2019-06-27] MEDS ORDERED: AMINO ACID 10% IV SCH (17:00)
[2019-06-27] MEDS ORDERED: [UNRECOGNIZED DRUG - OTHER] IV SCH (17:00)
[2019-06-27] MEDS ORDERED: FAT EMUL IV SCH (17:00)
[2019-06-27 18:59] VITALS: BP 136/86
[2019-06-27] MEDS: ENOXAPARIN 40 MG/0.4 ML SQ SCH (22:06)
[2019-06-28 00:20] VITALS: BP 137/89
[2019-06-28] MEDS: DIPHENHYDRAMINE 50 MG/ML, 1ML IVPush PRN ×3 (01:00→20:08)
[2019-06-28] MEDS: PIPERACILLIN/TAZO/PMX 3.375GM 50 ML IV SCH ×4 (02:00→19:46)
[2019-06-28] MEDS: ONDANSETRON 2MG/ML, 2ML IV SCH ×4 (05:57→23:38)
[2019-06-28 06:01] LABS: MEAN CORPUSCULAR HEMOGLOBIN 30.2 pg (27.0-34.8); MEAN CORPUSCULAR VOLUME 88.8 fL (80-100); MEAN PLATELET VOLUME 10.5 fL (7.4-10.4); PLATELET COUNT 391 x10^3/uL (130-400); RED BLOOD COUNT 3.22 x10^6/uL (3.82-5.3); RED CELL DISTRIBUTION WIDTH 15.7 % (9.6-15.2)
[2019-06-28 06:13] LABS: ALBUMIN 2.3 g/dL (3.4-5.0); ANION GAP 8 mmol/L (5-15); CALCIUM 8.4 mg/dL (8.5-10.1); CHLORIDE 107 mmol/L (98-107)
[2019-06-28 06:16] LABS: ALANINE AMINOTRANSFERASE 37 U/L (12-78); ALKALINE PHOSPHATASE 231 U/L (45-117); BILIRUBIN,TOTAL 5.8 mg/dL (0.2-1.0); CREATININE 0.61 mg/dL (0.55-1.02); TOTAL PROTEIN 7.4 g/dL (6.4-8.2)
[2019-06-28 06:24] LABS: BASOPHILS # (AUTO) 0.02 x10^3/uL (0-0.1); BASOPHILS % (AUTO) 0 % (0-1); EOSINOPHILS # (AUTO) 0.33 x10^3/uL (0-0.4); EOSINOPHILS % (AUTO) 2 % (1-7); LYMPHOCYTES # (AUTO) 1.27 x10^3/uL (1-3.4); LYMPHOCYTES % (AUTO) 6 % (22-44); MD SCAN; MONOCYTES # (AUTO) 1.56 x10^3/uL (0.2-0.8); MONOCYTES % (AUTO) 7 % (2-9); NEUTROPHILS # (AUTO) 19.89 x10^3/uL (1.8-6.8); NEUTROPHILS % (AUTO) 86 % (42-75)
[2019-06-28] MEDS: SODIUM CHLORIDE 0.9% 1,000 ML IV SCH (06:38)
[2019-06-28] MEDS: INSULIN LISPRO 100 UNITS/ML, PEN SQ-INSULIN SCH (07:00)
[2019-06-28 07:32] VITALS: BP 132/90
[2019-06-28] MEDS ORDERED: PHENOL THROAT SPRAY BOTTLE MM PRN (10:30)
[2019-06-28] MEDS: FAT EMUL IV SCH ×2 (10:57→16:56)
[2019-06-28] MEDS: AMINO ACID 10% IV SCH ×2 (10:57→16:56)
[2019-06-28] MEDS: [UNRECOGNIZED DRUG - OTHER] IV SCH ×2 (10:57→16:56)
[2019-06-28] MEDS: DEXTROSE 70% IV SCH ×2 (10:57→16:56)
[2019-06-28] MEDS: SMOF TPN IV SCH ×2 (10:57→16:56)
[2019-06-28] MEDS ORDERED: SODIUM CHLORIDE 0.9% 1,000 ML IV SCH (11:00)
[2019-06-28 13:35] VITALS: BP 135/89
[2019-06-28] MEDS: FILTER, DISP 1.2 MICRON FOR TPN/PVN IV PRN (16:56)
[2019-06-28 18:51] VITALS: BP 119/83
[2019-06-28] MEDS: ENOXAPARIN 40 MG/0.4 ML SQ SCH (22:05)
[2019-06-29 01:22] VITALS: BP 122/78
[2019-06-29] MEDS: DIPHENHYDRAMINE 50 MG/ML, 1ML IVPush PRN ×2 (01:48→07:44)
[2019-06-29] MEDS: PIPERACILLIN/TAZO/PMX 3.375GM 50 ML IV SCH ×4 (01:50→19:52)
[2019-06-29 05:26] LABS: MEAN CORPUSCULAR HEMOGLOBIN 30.5 pg (27.0-34.8); MEAN CORPUSCULAR HGB CONC 33.9 g/dL (32.4-35.8); MEAN CORPUSCULAR VOLUME 89.9 fL (80-100); MEAN PLATELET VOLUME 10.4 fL (7.4-10.4); PLATELET COUNT 465 x10^3/uL (130-400); RED BLOOD COUNT 3.51 x10^6/uL (3.82-5.3); RED CELL DISTRIBUTION WIDTH 15.6 % (9.6-15.2)
[2019-06-29 05:32] LABS: ALBUMIN 2.3 g/dL (3.4-5.0); ANION GAP 6 mmol/L (5-15); CALCIUM 8.7 mg/dL (8.5-10.1); CHLORIDE 103 mmol/L (98-107)
[2019-06-29 05:36] LABS: ALANINE AMINOTRANSFERASE 38 U/L (12-78); ALKALINE PHOSPHATASE 221 U/L (45-117); BILIRUBIN,TOTAL 5.9 mg/dL (0.2-1.0); CREATININE 0.69 mg/dL (0.55-1.02); TOTAL PROTEIN 7.9 g/dL (6.4-8.2)
[2019-06-29 05:55] LABS: MD YES
[2019-06-29 05:56] LABS: ANISOCYTOSIS 1+; BAND#(MANUAL) 1.13 x10^3/uL; BANDS%(MANUAL) 4 % (0-7); LYMPH#(MANUAL) 1.69 x10^3/uL (1-3.4); LYMPHS% (MANUAL) 6 % (22-44); METAMYELOCYTES# (MANUAL) 0.28 x10^3/uL (0-0); METAMYELOCYTES% (MANUAL) 1 % (0-1); MONOS#(MANUAL) 1.97 x10^3/uL (0.3-2.7); MONOS% (MANUAL) 7 % (2-9); MYELOCYTES# (MANUAL) 0.28 x10^3/uL (0-0); MYELOCYTES% (MANUAL) 1 % (0-0); SEG#(MANUAL) 22.84 x10^3/uL (1.8-6.8); SEGS% (MANUAL) 81 % (42-75)
[2019-06-29 05:57] LABS: <PLATELET ESTIMATE> INCREASED; LARGE PLATELETS 1+; TOXIC GRAN 1+
[2019-06-29] MEDS: ONDANSETRON 2MG/ML, 2ML IV SCH ×4 (06:29→22:53)
[2019-06-29 07:07] VITALS: BP 124/84
[2019-06-29] MEDS: INSULIN LISPRO 100 UNITS/ML, PEN SQ-INSULIN SCH (07:47)
[2019-06-29] MEDS: SODIUM CHLORIDE 0.9% 1,000 ML IV SCH (12:00)
[2019-06-29] MEDS: KETOROLAC 30 MG/1 ML IM SCH ×3 (12:00→22:53)
[2019-06-29] MEDS: FLUCONAZOLE 200 MG/100 ML 100 ML IV SCH (12:00)
[2019-06-29 12:35] VITALS: BP 102/69
[2019-06-29] MEDS ORDERED: [UNRECOGNIZED DRUG - OTHER] IV SCH (17:00)
[2019-06-29] MEDS ORDERED: DEXTROSE 70% IV SCH (17:00)
[2019-06-29] MEDS ORDERED: FAT EMUL IV SCH (17:00)
[2019-06-29] MEDS ORDERED: AMINO ACID 10% IV SCH (17:00)
[2019-06-29] MEDS ORDERED: SMOF TPN IV SCH (17:00)
[2019-06-29] MEDS: FILTER, DISP 1.2 MICRON FOR TPN/PVN IV PRN (17:12)
[2019-06-29] MEDS: ENOXAPARIN 40 MG/0.4 ML SQ SCH (19:53)
[2019-06-29 19:57] VITALS: BP 109/76
[2019-06-30] MEDS: PIPERACILLIN/TAZO/PMX 3.375GM 50 ML IV SCH ×4 (01:11→20:13)
[2019-06-30 02:36] VITALS: BP 103/71
[2019-06-30 02:45] LABS: MEAN CORPUSCULAR HEMOGLOBIN 29.9 pg (27.0-34.8); MEAN CORPUSCULAR HGB CONC 33.6 g/dL (32.4-35.8); MEAN CORPUSCULAR VOLUME 88.8 fL (80-100); MEAN PLATELET VOLUME 10.4 fL (7.4-10.4); PLATELET COUNT 419 x10^3/uL (130-400); RED BLOOD COUNT 3.01 x10^6/uL (3.82-5.3); RED CELL DISTRIBUTION WIDTH 15.4 % (9.6-15.2)
[2019-06-30 02:48] LABS: MD YES
[2019-06-30 02:54] LABS: ALBUMIN 2.1 g/dL (3.4-5.0); ANION GAP 6 mmol/L (5-15); CALCIUM 8.4 mg/dL (8.5-10.1); CHLORIDE 106 mmol/L (98-107)
[2019-06-30 02:59] LABS: ANISOCYTOSIS 1+; BAND#(MANUAL) 0.17 x10^3/uL; BANDS%(MANUAL) 1 % (0-7); LYMPHS% (MANUAL) 6 % (22-44); MONOS% (MANUAL) 6 % (2-9); MYELOCYTES# (MANUAL) 0.17 x10^3/uL (0-0); MYELOCYTES% (MANUAL) 1 % (0-0); SEG#(MANUAL) 14.36 x10^3/uL (1.8-6.8); SEGS% (MANUAL) 86 % (42-75)
[2019-06-30 03:00] LABS: <PLATELET ESTIMATE> INCREASED; LARGE PLATELETS 1+
[2019-06-30 03:01] LABS: ALANINE AMINOTRANSFERASE 28 U/L (12-78); ALKALINE PHOSPHATASE 171 U/L (45-117); CREATININE 0.81 mg/dL (0.55-1.02); PREALBUMIN 10.8 mg/dL (20.0-40.0); TOTAL PROTEIN 7.3 g/dL (6.4-8.2)
[2019-06-30] MEDS: ONDANSETRON 2MG/ML, 2ML IV SCH ×4 (05:07→23:22)
[2019-06-30] MEDS: KETOROLAC 30 MG/1 ML IM SCH ×4 (05:07→23:22)
[2019-06-30 07:22] VITALS: BP 112/75
[2019-06-30] MEDS: INSULIN LISPRO 100 UNITS/ML, PEN SQ-INSULIN SCH (07:35)
[2019-06-30] MEDS: FLUCONAZOLE 200 MG/100 ML 100 ML IV SCH (11:55)
[2019-06-30] MEDS: DIPHENHYDRAMINE 50 MG/ML, 1ML IVPush PRN ×2 (11:55→18:15)
[2019-06-30] MEDS: SODIUM CHLORIDE 0.9% 1,000 ML IV SCH (11:58)
[2019-06-30 13:40] VITALS: BP 112/74
[2019-06-30] MEDS ORDERED: [UNRECOGNIZED DRUG - OTHER] IV SCH (17:00)
[2019-06-30] MEDS ORDERED: DEXTROSE 70% IV SCH (17:00)
[2019-06-30] MEDS ORDERED: AMINO ACID 10% IV SCH (17:00)
[2019-06-30] MEDS ORDERED: FAT EMUL IV SCH (17:00)
[2019-06-30] MEDS ORDERED: SMOF TPN IV SCH (17:00)
[2019-06-30] MEDS: FILTER, DISP 1.2 MICRON FOR TPN/PVN IV PRN (18:15)
[2019-06-30 19:32] VITALS: BP 119/80
[2019-06-30] MEDS: ENOXAPARIN 40 MG/0.4 ML SQ SCH (20:13)
[2019-07-01] MEDS: PIPERACILLIN/TAZO/PMX 3.375GM 50 ML IV SCH ×4 (01:52→20:01)
[2019-07-01 02:04] VITALS: BP 108/70
[2019-07-01 03:04] LABS: ANION GAP 6 mmol/L (5-15); CALCIUM 8.4 mg/dL (8.5-10.1); CHLORIDE 108 mmol/L (98-107); CREATININE 0.84 mg/dL (0.55-1.02)
[2019-07-01] MEDS: ONDANSETRON 2MG/ML, 2ML IV SCH ×3 (05:06→18:02)
[2019-07-01] MEDS: KETOROLAC 30 MG/1 ML IM SCH ×3 (05:06→16:35)
[2019-07-01] MEDS: INSULIN LISPRO 100 UNITS/ML, PEN SQ-INSULIN SCH (08:13)
[2019-07-01 08:33] LABS: MEAN CORPUSCULAR HEMOGLOBIN 30.1 pg (27.0-34.8); MEAN CORPUSCULAR HGB CONC 33.4 g/dL (32.4-35.8); MEAN CORPUSCULAR VOLUME 90.3 fL (80-100); MEAN PLATELET VOLUME 10.3 fL (7.4-10.4); PLATELET COUNT 420 x10^3/uL (130-400); RED BLOOD COUNT 2.61 x10^6/uL (3.82-5.3); RED CELL DISTRIBUTION WIDTH 15.7 % (9.6-15.2)
[2019-07-01 08:35] VITALS: BP 113/77
[2019-07-01 08:52] LABS: BASOPHILS # (AUTO) 0.01 x10^3/uL (0-0.1); BASOPHILS % (AUTO) 0 % (0-1); EOSINOPHILS # (AUTO) 0.11 x10^3/uL (0-0.4); EOSINOPHILS % (AUTO) 1 % (1-7); LYMPHOCYTES # (AUTO) 0.57 x10^3/uL (1-3.4); LYMPHOCYTES % (AUTO) 4 % (22-44); MD SCAN; MONOCYTES # (AUTO) 0.84 x10^3/uL (0.2-0.8); MONOCYTES % (AUTO) 7 % (2-9); NEUTROPHILS # (AUTO) 11.32 x10^3/uL (1.8-6.8); NEUTROPHILS % (AUTO) 88 % (42-75)
[2019-07-01] MEDS: SODIUM CHLORIDE 0.9% 1,000 ML IV SCH (09:21)
[2019-07-01] MEDS: FLUCONAZOLE 200 MG/100 ML 100 ML IV SCH (12:07)
[2019-07-01] MEDS ORDERED: VISIPAQUE 270 MG/ML, 50ML BOTTLE ONE (13:19)
[2019-07-01 13:34] VITALS: BP 116/77
[2019-07-01] MEDS: DIPHENHYDRAMINE 50 MG/ML, 1ML IVPush PRN (16:45)
[2019-07-01] MEDS ORDERED: FAT EMUL IV SCH (17:00)
[2019-07-01] MEDS ORDERED: [UNRECOGNIZED DRUG - OTHER] IV SCH (17:00)
[2019-07-01] MEDS ORDERED: SMOF TPN IV SCH (17:00)
[2019-07-01] MEDS ORDERED: AMINO ACID 10% IV SCH (17:00)
[2019-07-01] MEDS ORDERED: FILTER, DISP 1.2 MICRON FOR TPN/PVN IV PRN (17:00)
[2019-07-01] MEDS ORDERED: DEXTROSE 70% IV SCH (17:00)
[2019-07-01 19:43] VITALS: BP 113/75
[2019-07-01] MEDS: ENOXAPARIN 40 MG/0.4 ML SQ SCH (20:00)
[2019-07-02] VITALS (7 sets, daily range): BP systolic 110–127; BP diastolic 72–90
[2019-07-02] MEDS: PIPERACILLIN/TAZO/PMX 3.375GM 50 ML IV SCH ×4 (02:03→20:32)
[2019-07-02] MEDS: KETOROLAC 30 MG/1 ML IM SCH ×2 (05:28)
[2019-07-02] MEDS: ONDANSETRON 2MG/ML, 2ML IV SCH ×5 (05:28→23:58)
[2019-07-02 06:05] LABS: MEAN CORPUSCULAR HEMOGLOBIN 30.2 pg (27.0-34.8); MEAN CORPUSCULAR HGB CONC 33.8 g/dL (32.4-35.8); MEAN CORPUSCULAR VOLUME 89.4 fL (80-100); MEAN PLATELET VOLUME 9.7 fL (7.4-10.4); PLATELET COUNT 426 x10^3/uL (130-400); RED BLOOD COUNT 2.43 x10^6/uL (3.82-5.3); RED CELL DISTRIBUTION WIDTH 15.8 % (9.6-15.2)
[2019-07-02 06:22] LABS: BASOPHILS # (AUTO) 0.01 x10^3/uL (0-0.1); BASOPHILS % (AUTO) 0 % (0-1); EOSINOPHILS % (AUTO) 1 % (1-7); LYMPHOCYTES # (AUTO) 0.47 x10^3/uL (1-3.4); LYMPHOCYTES % (AUTO) 5 % (22-44); MD SCAN; MONOCYTES # (AUTO) 0.67 x10^3/uL (0.2-0.8); MONOCYTES % (AUTO) 7 % (2-9); NEUTROPHILS # (AUTO) 8.76 x10^3/uL (1.8-6.8); NEUTROPHILS % (AUTO) 87 % (42-75)
[2019-07-02] MEDS: SODIUM CHLORIDE 0.9% 1,000 ML IV SCH (08:29)
[2019-07-02] MEDS: INSULIN LISPRO 100 UNITS/ML, PEN SQ-INSULIN SCH (08:44)
[2019-07-02] MEDS ORDERED: HYDROcodone/APAP 5/325 TABLET PO PRN (09:00)
[2019-07-02] MEDS: ACETAMINOPHEN 325 MG TABLET PO PRN ×2 (11:14→16:17)
[2019-07-02] MEDS: DIPHENHYDRAMINE 50 MG/ML, 1ML IVPush PRN ×2 (11:15→16:17)
[2019-07-02] MEDS: FLUCONAZOLE 200 MG/100 ML 100 ML IV SCH (11:29)
[2019-07-02] MEDS ORDERED: KETOROLAC 30 MG/1 ML IM SCH (11:30)
[2019-07-02] MEDS: KETOROLAC 30 MG/1 ML IV SCH ×3 (12:20→23:59)
[2019-07-02] MEDS ORDERED: [UNRECOGNIZED DRUG - OTHER] IV SCH (17:00)
[2019-07-02] MEDS ORDERED: FILTER, DISP 1.2 MICRON FOR TPN/PVN IV PRN (17:00)
[2019-07-02] MEDS ORDERED: AMINO ACID 10% IV SCH (17:00)
[2019-07-02] MEDS ORDERED: FAT EMUL IV SCH (17:00)
[2019-07-02] MEDS ORDERED: DEXTROSE 70% IV SCH (17:00)
[2019-07-02] MEDS ORDERED: SMOF TPN IV SCH (17:00)
[2019-07-02] MEDS: ENOXAPARIN 40 MG/0.4 ML SQ SCH (20:32)
[2019-07-03 00:01] VITALS: BP 138/88
[2019-07-03] MEDS: PIPERACILLIN/TAZO/PMX 3.375GM 50 ML IV SCH ×4 (02:17→20:05)
[2019-07-03] MEDS ORDERED: PROCHLORPERAZINE 5 MG/ML, 2ML ONE (04:45)
[2019-07-03] MEDS: PROCHLORPERAZINE 5 MG/ML, 2ML IVPush SCH ×3 (04:54→20:03)
[2019-07-03] MEDS: KETOROLAC 30 MG/1 ML IV SCH ×4 (06:25→23:31)
[2019-07-03] MEDS: ONDANSETRON 2MG/ML, 2ML IV SCH ×4 (06:25→23:31)
[2019-07-03 06:51] LABS: MEAN CORPUSCULAR HEMOGLOBIN 30.3 pg (27.0-34.8); MEAN CORPUSCULAR HGB CONC 33.5 g/dL (32.4-35.8); MEAN CORPUSCULAR VOLUME 90.4 fL (80-100); MEAN PLATELET VOLUME 9.4 fL (7.4-10.4); PLATELET COUNT 403 x10^3/uL (130-400); RED BLOOD COUNT 2.89 x10^6/uL (3.82-5.3); RED CELL DISTRIBUTION WIDTH 15.1 % (9.6-15.2)
[2019-07-03 06:53] VITALS: BP 121/79
[2019-07-03 06:58] LABS: ANION GAP 5 mmol/L (5-15); CALCIUM 8.7 mg/dL (8.5-10.1); CHLORIDE 101 mmol/L (98-107); CREATININE 0.79 mg/dL (0.55-1.02)
[2019-07-03 07:16] LABS: BASOPHILS % (AUTO) 0 % (0-1); EOSINOPHILS # (AUTO) 0.08 x10^3/uL (0-0.4); EOSINOPHILS % (AUTO) 1 % (1-7); LYMPHOCYTES # (AUTO) 0.43 x10^3/uL (1-3.4); LYMPHOCYTES % (AUTO) 5 % (22-44); MD SCAN; MONOCYTES # (AUTO) 0.63 x10^3/uL (0.2-0.8); MONOCYTES % (AUTO) 7 % (2-9); NEUTROPHILS # (AUTO) 8.33 x10^3/uL (1.8-6.8); NEUTROPHILS % (AUTO) 88 % (42-75)
[2019-07-03] MEDS: SODIUM CHLORIDE 0.9% 1,000 ML IV SCH (09:00)
[2019-07-03] MEDS: INSULIN LISPRO 100 UNITS/ML, PEN SQ-INSULIN SCH (09:00)
[2019-07-03] MEDS: FLUCONAZOLE 200 MG/100 ML 100 ML IV SCH (11:14)
[2019-07-03 13:30] VITALS: BP 140/82
[2019-07-03] MEDS: FILTER, DISP 1.2 MICRON FOR TPN/PVN IV PRN (17:36)
[2019-07-03] MEDS ORDERED: FAT EMUL IV SCH (18:00)
[2019-07-03] MEDS ORDERED: SMOF TPN IV SCH (18:00)
[2019-07-03] MEDS ORDERED: [UNRECOGNIZED DRUG - OTHER] IV SCH (18:00)
[2019-07-03] MEDS ORDERED: DEXTROSE 70% IV SCH (18:00)
[2019-07-03] MEDS ORDERED: AMINO ACID 10% IV SCH (18:00)
[2019-07-03 18:26] VITALS: BP 144/92
[2019-07-03] MEDS: ENOXAPARIN 40 MG/0.4 ML SQ SCH (20:17)
[2019-07-04] MEDS: PIPERACILLIN/TAZO/PMX 3.375GM 50 ML IV SCH ×4 (01:52→22:15)
[2019-07-04] MEDS: PROCHLORPERAZINE 5 MG/ML, 2ML IVPush SCH (01:52)
[2019-07-04 01:59] VITALS: BP 129/84
[2019-07-04] MEDS: DIPHENHYDRAMINE 50 MG/ML, 1ML IVPush PRN (02:58)
[2019-07-04] MEDS: ONDANSETRON 2MG/ML, 2ML IV SCH ×2 (05:11→11:51)
[2019-07-04] MEDS: KETOROLAC 30 MG/1 ML IV SCH ×3 (05:11→17:34)
[2019-07-04 05:39] LABS: ANION GAP 5 mmol/L (5-15); CALCIUM 8.4 mg/dL (8.5-10.1); CHLORIDE 104 mmol/L (98-107); CREATININE 0.77 mg/dL (0.55-1.02)
[2019-07-04 07:09] VITALS: BP 116/80
[2019-07-04] MEDS: INSULIN LISPRO 100 UNITS/ML, PEN SQ-INSULIN SCH (07:34)
[2019-07-04] MEDS ORDERED: LORazepam 2 MG/ML, 1ML IVPush SCH (08:30)
[2019-07-04] MEDS: LORazepam 2 MG/ML, 1ML IVPush SCH ×2 (10:45→19:34)
[2019-07-04] MEDS: HYDROmorphone 2 MG/ML, 1ML IVPush SCH ×5 (10:54→23:39)
[2019-07-04] MEDS: FLUCONAZOLE 200 MG/100 ML 100 ML IV SCH (11:45)
[2019-07-04 12:21] VITALS: BP 124/82
[2019-07-04] MEDS ORDERED: SMOF TPN IV SCH (17:00)
[2019-07-04] MEDS ORDERED: FAT EMUL IV SCH (17:00)
[2019-07-04] MEDS ORDERED: AMINO ACID 10% IV SCH (17:00)
[2019-07-04] MEDS ORDERED: [UNRECOGNIZED DRUG - OTHER] IV SCH (17:00)
[2019-07-04] MEDS ORDERED: DEXTROSE 70% IV SCH (17:00)
[2019-07-04] MEDS: FILTER, DISP 1.2 MICRON FOR TPN/PVN IV PRN (17:34)
[2019-07-04] MEDS: SODIUM CHLORIDE 0.9% 1,000 ML IV SCH (17:37)
[2019-07-04 19:14] VITALS: BP 124/81
[2019-07-04] MEDS: ENOXAPARIN 40 MG/0.4 ML SQ SCH (20:42)
[2019-07-05] MEDS: KETOROLAC 30 MG/1 ML IV SCH ×4 (00:35→18:30)
[2019-07-05 00:49] VITALS: BP 117/77
[2019-07-05] MEDS: HYDROmorphone 2 MG/ML, 1ML IVPush SCH ×3 (02:12→08:49)
[2019-07-05] MEDS: LORazepam 2 MG/ML, 1ML IVPush SCH (03:49)
[2019-07-05] MEDS: PIPERACILLIN/TAZO/PMX 3.375GM 50 ML IV SCH ×4 (03:49→22:11)
[2019-07-05] MEDS ORDERED: HYDROmorphone 1 MG/ML, 1ML INJ ONE (04:56)
[2019-07-05 05:48] LABS: ANION GAP 6 mmol/L (5-15); CALCIUM 8.5 mg/dL (8.5-10.1); CHLORIDE 101 mmol/L (98-107); CREATININE 1.05 mg/dL (0.55-1.02)
[2019-07-05 07:40] VITALS: BP 121/83
[2019-07-05] MEDS: INSULIN LISPRO 100 UNITS/ML, PEN SQ-INSULIN SCH (08:49)
[2019-07-05] MEDS: METOPROLOL TARTRATE 25 MG TAB PO SCH (10:39)
[2019-07-05] MEDS: PSYLLIUM PACKET PO SCH (10:39)
[2019-07-05] MEDS: FLUCONAZOLE 200 MG/100 ML 100 ML IV SCH (11:57)
[2019-07-05] MEDS ORDERED: HYDROmorphone 2 MG/ML, 1ML IVPush SCH (13:00)
[2019-07-05 13:13] VITALS: BP 114/81
[2019-07-05] MEDS: HYDROmorphone 2MG TABLET PO PRN (14:38)
[2019-07-05] MEDS: ONDANSETRON 2MG/ML, 2ML IVPush PRN ×2 (15:11→20:42)
[2019-07-05] MEDS: HYDROmorphone 2 MG/ML, 1ML IVPush PRN ×3 (15:12→21:11)
[2019-07-05] MEDS ORDERED: AMINO ACID 10% IV SCH (17:00)
[2019-07-05] MEDS ORDERED: FAT EMUL IV SCH (17:00)
[2019-07-05] MEDS ORDERED: SMOF TPN IV SCH (17:00)
[2019-07-05] MEDS ORDERED: [UNRECOGNIZED DRUG - OTHER] IV SCH (17:00)
[2019-07-05] MEDS ORDERED: DEXTROSE 70% IV SCH (17:00)
[2019-07-05] MEDS: FILTER, DISP 1.2 MICRON FOR TPN/PVN IV PRN (17:36)
[2019-07-05] MEDS: SODIUM CHLORIDE 0.9% 1,000 ML IV SCH (17:36)
[2019-07-05] MEDS: ENOXAPARIN 40 MG/0.4 ML SQ SCH (20:41)
[2019-07-05 20:46] VITALS: BP 106/70
[2019-07-06] MEDS: KETOROLAC 30 MG/1 ML IV SCH ×5 (00:05→21:45)
[2019-07-06 00:44] VITALS: BP 116/77
[2019-07-06] MEDS: HYDROmorphone 2 MG/ML, 1ML IVPush PRN ×8 (00:53→23:22)
[2019-07-06] MEDS: ONDANSETRON 2MG/ML, 2ML IVPush PRN ×3 (03:51→16:28)
[2019-07-06] MEDS: PIPERACILLIN/TAZO/PMX 3.375GM 50 ML IV SCH ×4 (03:51→21:45)
[2019-07-06 04:08] LABS: ANION GAP 8 mmol/L (5-15); CALCIUM 8.4 mg/dL (8.5-10.1); CHLORIDE 98 mmol/L (98-107); CREATININE 1.41 mg/dL (0.55-1.02)
[2019-07-06 07:10] VITALS: BP 107/66
[2019-07-06] MEDS: METOPROLOL TARTRATE 25 MG TAB PO SCH (10:06)
[2019-07-06] MEDS: PSYLLIUM PACKET PO SCH (10:12)
[2019-07-06] MEDS: INSULIN LISPRO 100 UNITS/ML, PEN SQ-INSULIN SCH (10:26)
[2019-07-06] MEDS: FLUCONAZOLE 200 MG/100 ML 100 ML IV SCH (11:40)
[2019-07-06 12:21] LABS: MEAN CORPUSCULAR HEMOGLOBIN 29.9 pg (27.0-34.8); MEAN CORPUSCULAR HGB CONC 33.4 g/dL (32.4-35.8); MEAN CORPUSCULAR VOLUME 89.5 fL (80-100); MEAN PLATELET VOLUME 9.6 fL (7.4-10.4); PLATELET COUNT 493 x10^3/uL (130-400); RED BLOOD COUNT 3.19 x10^6/uL (3.82-5.3); RED CELL DISTRIBUTION WIDTH 15.8 % (9.6-15.2)
[2019-07-06 12:25] LABS: ALANINE AMINOTRANSFERASE 51 U/L (12-78); ALBUMIN 1.8 g/dL (3.4-5.0); ANION GAP 8 mmol/L (5-15); CALCIUM 8.9 mg/dL (8.5-10.1); CHLORIDE 94 mmol/L (98-107); CREATININE 1.41 mg/dL (0.55-1.02)
[2019-07-06 12:27] LABS: ALKALINE PHOSPHATASE 174 U/L (45-117); BILIRUBIN,TOTAL 4.7 mg/dL (0.2-1.0); TOTAL PROTEIN 8.4 g/dL (6.4-8.2)
[2019-07-06 12:50] VITALS: BP 112/79
[2019-07-06 12:55] LABS: MD YES
[2019-07-06 12:57] LABS: BAND#(MANUAL) 4.33 x10^3/uL; BANDS%(MANUAL) 25 % (0-7); EOS#(MANUAL) 0.69 x10^3/uL (0.0-0.4); EOS% (MANUAL) 4 % (1-7); LYMPH#(MANUAL) 0.52 x10^3/uL (1-3.4); LYMPHS% (MANUAL) 3 % (22-44); METAMYELOCYTES# (MANUAL) 0.87 x10^3/uL (0-0); METAMYELOCYTES% (MANUAL) 5 % (0-1); MONOS#(MANUAL) 0.52 x10^3/uL (0.3-2.7); MONOS% (MANUAL) 3 % (2-9); MYELOCYTES# (MANUAL) 1.21 x10^3/uL (0-0); MYELOCYTES% (MANUAL) 7 % (0-0); SEG#(MANUAL) 9.17 x10^3/uL (1.8-6.8); SEGS% (MANUAL) 53 % (42-75)
[2019-07-06 12:58] LABS: <PLATELET ESTIMATE> INCREASED; ANISOCYTOSIS 1+; LARGE PLATELETS 1+; POLYCHROMASIA 1+
[2019-07-06] MEDS: DIPHENOXYLATE/ATROPINE TABLET PO SCH ×2 (16:22→20:07)
[2019-07-06] MEDS ORDERED: DEXTROSE 70% IV SCH (17:00)
[2019-07-06] MEDS ORDERED: AMINO ACID 10% IV SCH (17:00)
[2019-07-06] MEDS ORDERED: SMOF TPN IV SCH (17:00)
[2019-07-06] MEDS ORDERED: [UNRECOGNIZED DRUG - OTHER] IV SCH (17:00)
[2019-07-06] MEDS ORDERED: FAT EMUL IV SCH (17:00)
[2019-07-06] MEDS: FILTER, DISP 1.2 MICRON FOR TPN/PVN IV PRN (17:54)
[2019-07-06] MEDS: SODIUM CHLORIDE 0.9% 1,000 ML IV SCH (17:55)
[2019-07-06] MEDS: ENOXAPARIN 40 MG/0.4 ML SQ SCH (20:07)
[2019-07-06 20:27] VITALS: BP 119/78
[2019-07-06] MEDS: DIPHENHYDRAMINE 50 MG/ML, 1ML IVPush PRN (21:10)
[2019-07-07 02:32] VITALS: BP 122/77
[2019-07-07] MEDS: ONDANSETRON 2MG/ML, 2ML IVPush PRN ×3 (02:35→13:47)
[2019-07-07] MEDS: HYDROmorphone 2 MG/ML, 1ML IVPush PRN ×4 (02:35→20:00)
[2019-07-07] MEDS: KETOROLAC 30 MG/1 ML IV SCH (02:46)
[2019-07-07] MEDS: PIPERACILLIN/TAZO/PMX 3.375GM 50 ML IV SCH ×4 (03:47→21:28)
[2019-07-07] MEDS: DIPHENOXYLATE/ATROPINE TABLET PO SCH ×4 (03:47→21:28)
[2019-07-07 04:23] LABS: MEAN CORPUSCULAR HGB CONC 33.9 g/dL (32.4-35.8); MEAN CORPUSCULAR VOLUME 88.6 fL (80-100); MEAN PLATELET VOLUME 9.8 fL (7.4-10.4); PLATELET COUNT 444 x10^3/uL (130-400); RED BLOOD COUNT 3.07 x10^6/uL (3.82-5.3); RED CELL DISTRIBUTION WIDTH 15.7 % (9.6-15.2)
[2019-07-07 04:31] LABS: ALANINE AMINOTRANSFERASE 63 U/L (12-78); ALBUMIN 1.8 g/dL (3.4-5.0); ANION GAP 9 mmol/L (5-15); CALCIUM 8.7 mg/dL (8.5-10.1); CHLORIDE 98 mmol/L (98-107)
[2019-07-07 04:36] LABS: ALKALINE PHOSPHATASE 187 U/L (45-117); BILIRUBIN,TOTAL 4.1 mg/dL (0.2-1.0); CREATININE 1.59 mg/dL (0.55-1.02); PREALBUMIN 12.6 mg/dL (20.0-40.0)
[2019-07-07 05:48] LABS: MD YES
[2019-07-07 05:51] LABS: <PLATELET ESTIMATE> INCREASED; ANISOCYTOSIS 1+; BAND#(MANUAL) 1.25 x10^3/uL; BANDS%(MANUAL) 9 % (0-7); EOS#(MANUAL) 0.28 x10^3/uL (0.0-0.4); EOS% (MANUAL) 2 % (1-7); LARGE PLATELETS 1+; LYMPH#(MANUAL) 1.39 x10^3/uL (1-3.4); LYMPHS% (MANUAL) 10 % (22-44); METAMYELOCYTES# (MANUAL) 1.25 x10^3/uL (0-0); METAMYELOCYTES% (MANUAL) 9 % (0-1); MONOS% (MANUAL) 5 % (2-9); MYELOCYTES# (MANUAL) 0.42 x10^3/uL (0-0); MYELOCYTES% (MANUAL) 3 % (0-0); POLYCHROMASIA 1+; SEG#(MANUAL) 8.62 x10^3/uL (1.8-6.8); SEGS% (MANUAL) 62 % (42-75)
[2019-07-07 08:23] VITALS: BP 107/75
[2019-07-07] MEDS: HYDROmorphone 2MG TABLET PO PRN (08:35)
[2019-07-07] MEDS: PSYLLIUM PACKET PO SCH (08:36)
[2019-07-07] MEDS: METOPROLOL TARTRATE 25 MG TAB PO SCH ×2 (08:36→19:19)
[2019-07-07] MEDS: INSULIN LISPRO 100 UNITS/ML, PEN SQ-INSULIN SCH (08:45)
[2019-07-07] MEDS: LACTATED RINGERS 1,000 ML IV SCH ×2 (10:16→19:19)
[2019-07-07] MEDS: FLUCONAZOLE 200 MG/100 ML 100 ML IV SCH (11:16)
[2019-07-07 12:18] VITALS: BP 112/78
[2019-07-07] MEDS: METOCLOPRAMIDE 5 MG/ML, 2ML IVPush SCH ×2 (15:42→21:28)
[2019-07-07] MEDS: CALCIUM POLYCARBOPHIL 625 MG TABLET PO SCH (15:47)
[2019-07-07] MEDS: FILTER, DISP 1.2 MICRON FOR TPN/PVN IV PRN (16:34)
[2019-07-07] MEDS ORDERED: DEXTROSE 70% IV SCH (17:00)
[2019-07-07] MEDS ORDERED: AMINO ACID 10% IV SCH (17:00)
[2019-07-07] MEDS ORDERED: FAT EMUL IV SCH (17:00)
[2019-07-07] MEDS ORDERED: SMOF TPN IV SCH (17:00)
[2019-07-07] MEDS ORDERED: [UNRECOGNIZED DRUG - OTHER] IV SCH (17:00)
[2019-07-07 19:24] VITALS: BP 111/71
[2019-07-07] MEDS: DIPHENHYDRAMINE 50 MG/ML, 1ML IVPush PRN (23:15)
[2019-07-08 00:54] VITALS: BP 111/71
[2019-07-08] MEDS: HYDROmorphone 2MG TABLET PO PRN ×2 (01:19→17:23)
[2019-07-08] MEDS: ONDANSETRON 2MG/ML, 2ML IVPush PRN ×3 (01:24→14:16)
[2019-07-08] MEDS: HYDROmorphone 2 MG/ML, 1ML IVPush PRN ×6 (01:30→22:12)
[2019-07-08] MEDS: LACTATED RINGERS 1,000 ML IV SCH ×3 (03:54→22:12)
[2019-07-08] MEDS: CALCIUM POLYCARBOPHIL 625 MG TABLET PO SCH ×4 (03:55→22:12)
[2019-07-08] MEDS: PIPERACILLIN/TAZO/PMX 3.375GM 50 ML IV SCH ×4 (03:55→22:11)
[2019-07-08] MEDS: METOCLOPRAMIDE 5 MG/ML, 2ML IVPush SCH ×4 (03:55→22:11)
[2019-07-08] MEDS: DIPHENOXYLATE/ATROPINE TABLET PO SCH ×4 (03:57→22:12)
[2019-07-08 04:42] LABS: % IRON SATURATION 52 % (20-55); IRON LEVEL 65 mcg/dL (50-170); TOTAL IRON BINDING CAPACITY 124 mcg/dL (250-450)
[2019-07-08] MEDS: METOPROLOL TARTRATE 25 MG TAB PO SCH ×2 (07:35→22:12)
[2019-07-08 07:36] LABS: ALANINE AMINOTRANSFERASE 76 U/L (12-78); ALBUMIN 1.8 g/dL (3.4-5.0); ANION GAP 9 mmol/L (5-15); CALCIUM 8.7 mg/dL (8.5-10.1); CHLORIDE 99 mmol/L (98-107); CREATININE 1.35 mg/dL (0.55-1.02)
[2019-07-08 07:39] LABS: ALKALINE PHOSPHATASE 198 U/L (45-117); BILIRUBIN,TOTAL 3.6 mg/dL (0.2-1.0); TOTAL PROTEIN 8.1 g/dL (6.4-8.2)
[2019-07-08] MEDS: INSULIN LISPRO 100 UNITS/ML, PEN SQ-INSULIN SCH (07:56)
[2019-07-08 09:00] VITALS: BP 109/79
[2019-07-08] MEDS: FLUCONAZOLE 200 MG/100 ML 100 ML IV SCH (11:35)
[2019-07-08 15:40] VITALS: BP 117/82
[2019-07-08 16:16] LABS: ANA SCREEN POSITIVE (Negative)
[2019-07-08 16:17] LABS: ANTI-NUCLEAR ANTIBODY PATTERN SPECKLED
[2019-07-08] MEDS ORDERED: FAT EMUL IV SCH (17:00)
[2019-07-08] MEDS ORDERED: AMINO ACID 10% IV SCH (17:00)
[2019-07-08] MEDS ORDERED: SMOF TPN IV SCH (17:00)
[2019-07-08] MEDS ORDERED: [UNRECOGNIZED DRUG - OTHER] IV SCH (17:00)
[2019-07-08] MEDS ORDERED: DEXTROSE 70% IV SCH (17:00)
[2019-07-08] MEDS: FILTER, DISP 1.2 MICRON FOR TPN/PVN IV PRN (17:19)
[2019-07-08 18:52] VITALS: BP 111/73
[2019-07-08] MEDS ORDERED: CODEINE SULFATE 30 MG TABLET PO SCH (21:00)
[2019-07-08] MEDS: OPIUM TINCTURE 1% 10 MG/ML ORAL.SOL PO SCH (21:30)
[2019-07-09] MEDS: HYDROmorphone 2 MG/ML, 1ML IVPush PRN ×7 (01:09→22:12)
[2019-07-09 02:40] VITALS: BP 123/85
[2019-07-09] MEDS: DIPHENHYDRAMINE 50 MG/ML, 1ML IVPush PRN ×2 (02:40→23:51)
[2019-07-09] MEDS: DIPHENOXYLATE/ATROPINE TABLET PO SCH ×4 (03:49→22:11)
[2019-07-09] MEDS: PIPERACILLIN/TAZO/PMX 3.375GM 50 ML IV SCH ×4 (03:49→22:11)
[2019-07-09] MEDS: METOCLOPRAMIDE 5 MG/ML, 2ML IVPush SCH ×3 (03:50→19:31)
[2019-07-09 04:10] LABS: MEAN CORPUSCULAR HEMOGLOBIN 29.5 pg (27.0-34.8); MEAN CORPUSCULAR HGB CONC 33.3 g/dL (32.4-35.8); MEAN CORPUSCULAR VOLUME 88.6 fL (80-100); MEAN PLATELET VOLUME 9.6 fL (7.4-10.4); PLATELET COUNT 517 x10^3/uL (130-400); RED BLOOD COUNT 3.03 x10^6/uL (3.82-5.3); RED CELL DISTRIBUTION WIDTH 15.7 % (9.6-15.2)
[2019-07-09 04:16] LABS: ALANINE AMINOTRANSFERASE 94 U/L (12-78); ALBUMIN 1.8 g/dL (3.4-5.0); ANION GAP 7 mmol/L (5-15); CALCIUM 9.1 mg/dL (8.5-10.1); CHLORIDE 102 mmol/L (98-107); CREATININE 0.97 mg/dL (0.55-1.02)
[2019-07-09 04:18] LABS: ALKALINE PHOSPHATASE 220 U/L (45-117); TOTAL PROTEIN 8.2 g/dL (6.4-8.2)
[2019-07-09] MEDS: LACTATED RINGERS 1,000 ML IV SCH ×2 (05:27→15:42)
[2019-07-09 05:44] LABS: MD YES
[2019-07-09 05:46] LABS: ANISOCYTOSIS 1+; BAND#(MANUAL) 1.08 x10^3/uL; BANDS%(MANUAL) 5 % (0-7); EOS#(MANUAL) 0.43 x10^3/uL (0.0-0.4); EOS% (MANUAL) 2 % (1-7); LYMPH#(MANUAL) 1.94 x10^3/uL (1-3.4); LYMPHS% (MANUAL) 9 % (22-44); METAMYELOCYTES# (MANUAL) 0.43 x10^3/uL (0-0); METAMYELOCYTES% (MANUAL) 2 % (0-1); MONOS#(MANUAL) 1.29 x10^3/uL (0.3-2.7); MONOS% (MANUAL) 6 % (2-9); MYELOCYTES# (MANUAL) 1.29 x10^3/uL (0-0); MYELOCYTES% (MANUAL) 6 % (0-0); POLYCHROMASIA 1+; SEG#(MANUAL) 15.05 x10^3/uL (1.8-6.8); SEGS% (MANUAL) 70 % (42-75)
[2019-07-09 05:47] LABS: <PLATELET ESTIMATE> INCREASED; LARGE PLATELETS 1+; TOXIC GRAN 1+
[2019-07-09] MEDS: ONDANSETRON 2MG/ML, 2ML IVPush PRN (06:33)
[2019-07-09 06:43] VITALS: BP 120/83
[2019-07-09] MEDS ORDERED: MAGNESIUM SULFATE PMX 2GM/50ML 50 ML IV ONE (08:00)
[2019-07-09] MEDS ORDERED: DEXTROSE 70% IV SCH ×2 (08:30→17:00)
[2019-07-09] MEDS ORDERED: AMINO ACID 10% IV SCH ×2 (08:30→17:00)
[2019-07-09] MEDS ORDERED: [UNRECOGNIZED DRUG - OTHER] IV SCH ×2 (08:30→17:00)
[2019-07-09] MEDS ORDERED: FAT EMUL IV SCH ×2 (08:30→17:00)
[2019-07-09] MEDS ORDERED: SMOF TPN IV SCH ×2 (08:30→17:00)
[2019-07-09] MEDS: OPIUM TINCTURE 1% 10 MG/ML ORAL.SOL PO SCH ×3 (09:25→23:15)
[2019-07-09] MEDS: INSULIN LISPRO 100 UNITS/ML, PEN SQ-INSULIN SCH (09:29)
[2019-07-09] MEDS: METOPROLOL TARTRATE 25 MG TAB PO SCH ×2 (09:31→22:11)
[2019-07-09] MEDS: CALCIUM POLYCARBOPHIL 625 MG TABLET PO SCH ×2 (09:31→20:22)
[2019-07-09] MEDS: ONDANSETRON 2MG/ML, 2ML IVPush SCH ×3 (10:23→22:12)
[2019-07-09 12:17] VITALS: BP 126/81
[2019-07-09] MEDS: FLUCONAZOLE 200 MG/100 ML 100 ML IV SCH (12:45)
[2019-07-09] MEDS: OCTREOTIDE 500 MCG/ML, 1ML (0.5MG/ML) SQ SCH ×2 (12:47→18:03)
[2019-07-09] MEDS ORDERED: LIDOCAINE 1%, 10ML ONE (13:04)
[2019-07-09] MEDS ORDERED: FLUMAZENIL 0.1 MG/1 ML, 5ML ONE (13:19)
[2019-07-09] MEDS ORDERED: NALOXONE 1 MG/ML, 2ML ONE (13:19)
[2019-07-09] MEDS ORDERED: FENTANYL PF 100 MCG/2ML ONE (13:19)
[2019-07-09] MEDS ORDERED: MIDAZOLAM 1 MG/ML, 5ML ONE ×2 (13:19)
[2019-07-09] MEDS: SUCRALFATE 1 GM/10 ML UDC PO SCH ×2 (15:57→22:11)
[2019-07-09] MEDS: CHOLESTYRAMINE LIGHT 4GM PACKET PO SCH ×2 (15:58→22:11)
[2019-07-09 19:03] VITALS: BP 115/73
[2019-07-10 00:37] VITALS: BP 122/73
[2019-07-10] MEDS: HYDROmorphone 2 MG/ML, 1ML IVPush PRN ×4 (01:09→21:33)
[2019-07-10] MEDS: LACTATED RINGERS 1,000 ML IV SCH ×3 (01:10→23:54)
[2019-07-10] MEDS: METOCLOPRAMIDE 5 MG/ML, 2ML IVPush SCH ×2 (01:50→02:34)
[2019-07-10] MEDS: PIPERACILLIN/TAZO/PMX 3.375GM 50 ML IV SCH ×5 (04:15→21:33)
[2019-07-10] MEDS: ONDANSETRON 2MG/ML, 2ML IVPush SCH ×4 (04:17→21:33)
[2019-07-10 05:08] LABS: ANION GAP 6 mmol/L (5-15); CALCIUM 8.6 mg/dL (8.5-10.1); CHLORIDE 102 mmol/L (98-107); CREATININE 0.76 mg/dL (0.55-1.02); TRIGLYCERIDES 275 mg/dL (50-200)
[2019-07-10] MEDS: DIPHENOXYLATE/ATROPINE TABLET PO SCH ×4 (06:02→21:00)
[2019-07-10] MEDS: SUCRALFATE 1 GM/10 ML UDC PO SCH ×4 (06:02→21:34)
[2019-07-10] MEDS: HYDROmorphone 2MG TABLET PO PRN ×2 (06:08→07:16)
[2019-07-10] MEDS: INSULIN LISPRO 100 UNITS/ML, PEN SQ-INSULIN SCH (07:35)
[2019-07-10 07:37] VITALS: BP 130/87
[2019-07-10] MEDS: ACETAMINOPHEN 325 MG TABLET PO PRN (09:17)
[2019-07-10] MEDS: OPIUM TINCTURE 1% 10 MG/ML ORAL.SOL PO SCH (09:23)
[2019-07-10] MEDS: PANTOPRAZOLE 40 MG IV IVPush SCH (09:49)
[2019-07-10] MEDS: METOPROLOL TARTRATE 25 MG TAB PO SCH ×2 (09:49→21:35)
[2019-07-10] MEDS: CHOLESTYRAMINE LIGHT 4GM PACKET PO SCH ×3 (09:50→21:00)
[2019-07-10] MEDS: CALCIUM POLYCARBOPHIL 625 MG TABLET PO SCH ×2 (09:50→21:00)
[2019-07-10] MEDS: OCTREOTIDE 500 MCG/ML, 1ML (0.5MG/ML) SQ SCH ×3 (09:51→16:15)
[2019-07-10] MEDS: HYDROmorphone 2MG TABLET PO SCH ×5 (09:57→23:55)
[2019-07-10] MEDS: FLUCONAZOLE 200 MG/100 ML 100 ML IV SCH (14:18)
[2019-07-10 16:03] VITALS: BP 129/87
[2019-07-10] MEDS ORDERED: AMINO ACID 10% IV SCH (17:00)
[2019-07-10] MEDS ORDERED: [UNRECOGNIZED DRUG - OTHER] IV SCH (17:00)
[2019-07-10] MEDS ORDERED: FAT EMUL IV SCH (17:00)
[2019-07-10] MEDS ORDERED: SMOF TPN IV SCH (17:00)
[2019-07-10] MEDS ORDERED: DEXTROSE 70% IV SCH (17:00)
[2019-07-10 18:23] VITALS: BP 114/78
[2019-07-10] MEDS: DIPHENHYDRAMINE 50 MG/ML, 1ML IVPush PRN (19:48)
[2019-07-11 00:29] VITALS: BP 123/78
[2019-07-11] MEDS: DIPHENHYDRAMINE 50 MG/ML, 1ML IVPush PRN ×2 (01:57→22:34)
[2019-07-11] MEDS: ONDANSETRON 2MG/ML, 2ML IVPush SCH ×4 (03:18→22:13)
[2019-07-11] MEDS: HYDROmorphone 2MG TABLET PO SCH ×7 (03:18→23:29)
[2019-07-11] MEDS: PIPERACILLIN/TAZO/PMX 3.375GM 50 ML IV SCH ×2 (03:18→09:15)
[2019-07-11] MEDS: DIPHENOXYLATE/ATROPINE TABLET PO SCH ×4 (04:56→20:35)
[2019-07-11] MEDS: HYDROmorphone 2 MG/ML, 1ML IVPush PRN ×3 (05:20→17:01)
[2019-07-11 05:29] LABS: MEAN CORPUSCULAR HEMOGLOBIN 30.3 pg (27.0-34.8); MEAN PLATELET VOLUME 9.4 fL (7.4-10.4); PLATELET COUNT 471 x10^3/uL (130-400); RED CELL DISTRIBUTION WIDTH 14.9 % (9.6-15.2)
[2019-07-11 05:38] LABS: ANION GAP 5 mmol/L (5-15); CALCIUM 8.9 mg/dL (8.5-10.1); CHLORIDE 103 mmol/L (98-107)
[2019-07-11 05:39] LABS: CREATININE 0.64 mg/dL (0.55-1.02)
[2019-07-11 06:14] LABS: MD YES
[2019-07-11 06:16] LABS: BAND#(MANUAL) 0.78 x10^3/uL; BANDS%(MANUAL) 4 % (0-7); EOS#(MANUAL) 0.19 x10^3/uL (0.0-0.4); EOS% (MANUAL) 1 % (1-7); LYMPH#(MANUAL) 1.55 x10^3/uL (1-3.4); LYMPHS% (MANUAL) 8 % (22-44); METAMYELOCYTES# (MANUAL) 0.78 x10^3/uL (0-0); METAMYELOCYTES% (MANUAL) 4 % (0-1); MONOS#(MANUAL) 0.97 x10^3/uL (0.3-2.7); MONOS% (MANUAL) 5 % (2-9); MYELOCYTES# (MANUAL) 0.19 x10^3/uL (0-0); MYELOCYTES% (MANUAL) 1 % (0-0); SEG#(MANUAL) 14.94 x10^3/uL (1.8-6.8); SEGS% (MANUAL) 77 % (42-75)
[2019-07-11 06:17] LABS: <PLATELET ESTIMATE> INCREASED; ANISOCYTOSIS 1+; LARGE PLATELETS 1+; POLYCHROMASIA 1+
[2019-07-11] MEDS: SUCRALFATE 1 GM/10 ML UDC PO SCH ×4 (06:18→20:36)
[2019-07-11 06:57] VITALS: BP 123/84
[2019-07-11] MEDS: INSULIN LISPRO 100 UNITS/ML, PEN SQ-INSULIN SCH (09:00)
[2019-07-11] MEDS: CALCIUM POLYCARBOPHIL 625 MG TABLET PO SCH (09:14)
[2019-07-11] MEDS: CHOLESTYRAMINE LIGHT 4GM PACKET PO SCH ×3 (09:14→21:00)
[2019-07-11] MEDS: METOPROLOL TARTRATE 25 MG TAB PO SCH ×2 (09:14→20:36)
[2019-07-11] MEDS: PANTOPRAZOLE 40 MG IV IVPush SCH (09:15)
[2019-07-11] MEDS: ENOXAPARIN 40 MG/0.4 ML SQ SCH (09:31)
[2019-07-11] MEDS: LACTATED RINGERS 1,000 ML IV SCH ×3 (09:32→20:35)
[2019-07-11] MEDS: CEFTRIAXONE PMX 1GM/50ML 50 ML IV SCH ×2 (11:28→22:22)
[2019-07-11] MEDS: METRONIDAZOLE PMX 500MG/100ML 100 ML IV SCH ×2 (12:56→20:36)
[2019-07-11] MEDS ORDERED: PROMETHAZINE 25MG TABLET PO PRN (13:30)
[2019-07-11 14:57] VITALS: BP 118/82
[2019-07-11] MEDS: FLUCONAZOLE 200 MG/100 ML 100 ML IV SCH (15:00)
[2019-07-11] MEDS ORDERED: [UNRECOGNIZED DRUG - OTHER] IV SCH (17:00)
[2019-07-11] MEDS ORDERED: FAT EMUL IV SCH (17:00)
[2019-07-11] MEDS ORDERED: SMOF TPN IV SCH (17:00)
[2019-07-11] MEDS ORDERED: AMINO ACID 10% IV SCH (17:00)
[2019-07-11] MEDS ORDERED: DEXTROSE 70% IV SCH (17:00)
[2019-07-11] MEDS: FILTER, DISP 1.2 MICRON FOR TPN/PVN IV PRN (17:03)
[2019-07-11 19:49] VITALS: BP_SYST 130
[2019-07-12] VITALS (9 sets, daily range): BP systolic 113–124; BP diastolic 76–88
[2019-07-12] MEDS: HYDROmorphone 2 MG/ML, 1ML IVPush PRN ×5 (00:31→12:36)
[2019-07-12] MEDS: DIPHENHYDRAMINE 50 MG/ML, 1ML IVPush PRN ×2 (01:53→21:41)
[2019-07-12] MEDS: HYDROmorphone 2MG TABLET PO SCH ×3 (02:44→09:05)
[2019-07-12] MEDS: ONDANSETRON 2MG/ML, 2ML IVPush SCH (04:49)
[2019-07-12] MEDS: METRONIDAZOLE PMX 500MG/100ML 100 ML IV SCH ×3 (04:55→20:35)
[2019-07-12] MEDS: DIPHENOXYLATE/ATROPINE TABLET PO SCH (05:40)
[2019-07-12] MEDS: SUCRALFATE 1 GM/10 ML UDC PO SCH (05:40)
[2019-07-12 06:20] LABS: MEAN CORPUSCULAR HEMOGLOBIN 30.1 pg (27.0-34.8); MEAN CORPUSCULAR HGB CONC 33.8 g/dL (32.4-35.8); MEAN PLATELET VOLUME 9.1 fL (7.4-10.4); PLATELET COUNT 473 x10^3/uL (130-400); RED BLOOD COUNT 2.51 x10^6/uL (3.82-5.3); RED CELL DISTRIBUTION WIDTH 15.3 % (9.6-15.2)
[2019-07-12 06:27] LABS: ANION GAP 8 mmol/L (5-15); CALCIUM 7.8 mg/dL (8.5-10.1); CHLORIDE 105 mmol/L (98-107); CREATININE 0.64 mg/dL (0.55-1.02)
[2019-07-12 07:00] LABS: MD YES
[2019-07-12 07:02] LABS: BAND#(MANUAL) 1.35 x10^3/uL; BANDS%(MANUAL) 8 % (0-7); EOS#(MANUAL) 0.51 x10^3/uL (0.0-0.4); EOS% (MANUAL) 3 % (1-7); LYMPH#(MANUAL) 0.34 x10^3/uL (1-3.4); LYMPHS% (MANUAL) 2 % (22-44); METAMYELOCYTES# (MANUAL) 0.17 x10^3/uL (0-0); METAMYELOCYTES% (MANUAL) 1 % (0-1); MONOS#(MANUAL) 0.68 x10^3/uL (0.3-2.7); MONOS% (MANUAL) 4 % (2-9); REACTIVE LYMPHS # (MANUAL) 0.17 x10^3/uL (0-0); REACTIVE LYMPHS % (MANUAL) 1 % (0-0); SEG#(MANUAL) 13.69 x10^3/uL (1.8-6.8); SEGS% (MANUAL) 81 % (42-75)
[2019-07-12 07:03] LABS: <PLATELET ESTIMATE> INCREASED; ANISOCYTOSIS 1+; LARGE PLATELETS 1+
[2019-07-12] MEDS: CHOLESTYRAMINE LIGHT 4GM PACKET PO SCH (08:19)
[2019-07-12] MEDS: ENOXAPARIN 40 MG/0.4 ML SQ SCH (08:19)
[2019-07-12] MEDS: LACTATED RINGERS 1,000 ML IV SCH (08:19)
[2019-07-12] MEDS: METOPROLOL TARTRATE 25 MG TAB PO SCH (08:19)
[2019-07-12] MEDS: PANTOPRAZOLE 40 MG IV IVPush SCH (08:19)
[2019-07-12] MEDS: INSULIN LISPRO 100 UNITS/ML, PEN SQ-INSULIN SCH (08:28)
[2019-07-12 09:55] LABS: ANION GAP 7 mmol/L (5-15); CALCIUM 8.9 mg/dL (8.5-10.1); CHLORIDE 102 mmol/L (98-107)
[2019-07-12] MEDS ORDERED: ACETAMINOPHEN 325 MG TABLET PO ONE (10:30)
[2019-07-12] MEDS ORDERED: DIPHENHYDRAMINE 50 MG/ML, 1ML IVPush ONE (10:30)
[2019-07-12] MEDS ORDERED: SODIUM CHLORIDE 0.9% 1,000 ML IV SCH (10:30)
[2019-07-12] MEDS: ONDANSETRON 2MG/ML, 2ML IVPush PRN (10:36)
[2019-07-12] MEDS: CEFTRIAXONE PMX 1GM/50ML 50 ML IV SCH ×2 (10:39→23:22)
[2019-07-12] MEDS ORDERED: MAGNESIUM SULFATE PMX 2GM/50ML 50 ML IV ONE (11:30)
[2019-07-12] MEDS: HYDROmorphone PCA 30 MG/30 ML IV SCH (12:05)
[2019-07-12] MEDS: FLUCONAZOLE 200 MG/100 ML 100 ML IV SCH (16:02)
[2019-07-12] MEDS ORDERED: FAT EMUL IV SCH ×2 (17:00)
[2019-07-12] MEDS ORDERED: DEXTROSE 70% IV SCH ×2 (17:00)
[2019-07-12] MEDS ORDERED: AMINO ACID 10% IV SCH ×2 (17:00)
[2019-07-12] MEDS ORDERED: SMOF TPN IV SCH ×2 (17:00)
[2019-07-12] MEDS ORDERED: [UNRECOGNIZED DRUG - OTHER] IV SCH ×2 (17:00)
[2019-07-12] MEDS: FILTER, DISP 1.2 MICRON FOR TPN/PVN IV PRN (17:03)
[2019-07-12] MEDS: SODIUM CHLORIDE 0.9% 1,000 ML IV SCH (17:08)
[2019-07-13 01:33] VITALS: BP 131/90
[2019-07-13] MEDS: ONDANSETRON 2MG/ML, 2ML IVPush PRN ×3 (01:51→21:55)
[2019-07-13] MEDS: METRONIDAZOLE PMX 500MG/100ML 100 ML IV SCH ×3 (05:22→20:58)
[2019-07-13 05:49] LABS: ANION GAP 7 mmol/L (5-15); CHLORIDE 100 mmol/L (98-107)
[2019-07-13 05:51] LABS: CALCIUM 9.4 mg/dL (8.5-10.1); CREATININE 0.65 mg/dL (0.55-1.02)
[2019-07-13 05:54] LABS: MEAN CORPUSCULAR HEMOGLOBIN 29.8 pg (27.0-34.8); MEAN CORPUSCULAR HGB CONC 33.7 g/dL (32.4-35.8); MEAN CORPUSCULAR VOLUME 88.4 fL (80-100); MEAN PLATELET VOLUME 8.8 fL (7.4-10.4); PLATELET COUNT 457 x10^3/uL (130-400); RED BLOOD COUNT 4.13 x10^6/uL (3.82-5.3); RED CELL DISTRIBUTION WIDTH 15.7 % (9.6-15.2)
[2019-07-13 06:30] LABS: MD YES
[2019-07-13 06:31] LABS: LYMPH#(MANUAL) 0.86 x10^3/uL (1-3.4); LYMPHS% (MANUAL) 6 % (22-44); MONOS#(MANUAL) 1.72 x10^3/uL (0.3-2.7); MONOS% (MANUAL) 12 % (2-9); REACTIVE LYMPHS # (MANUAL) 0.14 x10^3/uL (0-0); REACTIVE LYMPHS % (MANUAL) 1 % (0-0); SEG#(MANUAL) 11.58 x10^3/uL (1.8-6.8); SEGS% (MANUAL) 81 % (42-75)
[2019-07-13 06:32] LABS: <PLATELET ESTIMATE> INCREASED; <PLT MORPHOLOGY> NORMAL PLT MORPH; ANISOCYTOSIS 1+
[2019-07-13] MEDS: INSULIN LISPRO 100 UNITS/ML, PEN SQ-INSULIN SCH (06:59)
[2019-07-13 07:29] VITALS: BP 132/86
[2019-07-13] MEDS: PANTOPRAZOLE 40 MG IV IVPush SCH (07:30)
[2019-07-13] MEDS: HYDROmorphone PCA 30 MG/30 ML IV SCH (09:17)
[2019-07-13] MEDS: CEFTRIAXONE PMX 1GM/50ML 50 ML IV SCH ×2 (11:54→22:54)
[2019-07-13 12:53] VITALS: BP 120/79
[2019-07-13] MEDS: FILTER, DISP 1.2 MICRON FOR TPN/PVN IV PRN (16:43)
[2019-07-13] MEDS ORDERED: DEXTROSE 70% IV SCH (17:00)
[2019-07-13] MEDS ORDERED: AMINO ACID 10% IV SCH (17:00)
[2019-07-13] MEDS ORDERED: FAT EMUL IV SCH (17:00)
[2019-07-13] MEDS ORDERED: SMOF TPN IV SCH (17:00)
[2019-07-13] MEDS ORDERED: [UNRECOGNIZED DRUG - OTHER] IV SCH (17:00)
[2019-07-13 20:16] VITALS: BP 116/85
[2019-07-13] MEDS: SODIUM CHLORIDE 0.9% 1,000 ML IV SCH (22:54)
[2019-07-14 02:30] VITALS: BP 118/81
[2019-07-14] MEDS: METRONIDAZOLE PMX 500MG/100ML 100 ML IV SCH ×3 (04:42→20:56)
[2019-07-14 05:01] LABS: BASOPHILS # (AUTO) 0.02 x10^3/uL (0-0.1); BASOPHILS % (AUTO) 0 % (0-1); EOSINOPHILS # (AUTO) 0.31 x10^3/uL (0-0.4); EOSINOPHILS % (AUTO) 2 % (1-7); LYMPHOCYTES # (AUTO) 0.87 x10^3/uL (1-3.4); LYMPHOCYTES % (AUTO) 6 % (22-44); MD NO; MEAN CORPUSCULAR HEMOGLOBIN 29.7 pg (27.0-34.8); MEAN CORPUSCULAR HGB CONC 33.5 g/dL (32.4-35.8); MEAN CORPUSCULAR VOLUME 88.7 fL (80-100); MEAN PLATELET VOLUME 9.1 fL (7.4-10.4); MONOCYTES % (AUTO) 7 % (2-9); NEUTROPHILS % (AUTO) 85 % (42-75); PLATELET COUNT 447 x10^3/uL (130-400); RED BLOOD COUNT 4.11 x10^6/uL (3.82-5.3); RED CELL DISTRIBUTION WIDTH 15.1 % (9.6-15.2)
[2019-07-14 05:14] LABS: ALBUMIN 1.9 g/dL (3.4-5.0); ANION GAP 7 mmol/L (5-15); CALCIUM 9.2 mg/dL (8.5-10.1); CHLORIDE 99 mmol/L (98-107)
[2019-07-14 05:20] LABS: ALANINE AMINOTRANSFERASE 61 U/L (12-78); ALKALINE PHOSPHATASE 222 U/L (45-117); BILIRUBIN,TOTAL 1.7 mg/dL (0.2-1.0); CREATININE 0.57 mg/dL (0.55-1.02); PREALBUMIN 16.5 mg/dL (20.0-40.0); TOTAL PROTEIN 8.7 g/dL (6.4-8.2)
[2019-07-14] MEDS: HYDROmorphone PCA 30 MG/30 ML IV SCH ×2 (06:12→22:23)
[2019-07-14 07:58] VITALS: BP 120/84
[2019-07-14] MEDS: PANTOPRAZOLE 40 MG IV IVPush SCH (09:49)
[2019-07-14] MEDS: INSULIN LISPRO 100 UNITS/ML, PEN SQ-INSULIN SCH (09:58)
[2019-07-14] MEDS: CEFTRIAXONE PMX 1GM/50ML 50 ML IV SCH ×2 (11:21→22:54)
[2019-07-14 14:00] VITALS: BP 117/80
[2019-07-14] MEDS ORDERED: DEXTROSE 70% IV SCH (17:00)
[2019-07-14] MEDS ORDERED: [UNRECOGNIZED DRUG - OTHER] IV SCH (17:00)
[2019-07-14] MEDS ORDERED: FAT EMUL IV SCH (17:00)
[2019-07-14] MEDS ORDERED: SMOF TPN IV SCH (17:00)
[2019-07-14] MEDS ORDERED: AMINO ACID 10% IV SCH (17:00)
[2019-07-14] MEDS: FILTER, DISP 1.2 MICRON FOR TPN/PVN IV PRN (17:35)
[2019-07-14 20:01] VITALS: BP 117/75
[2019-07-14] MEDS: DIPHENHYDRAMINE 50 MG/ML, 1ML IVPush PRN (22:38)
[2019-07-14] MEDS: SODIUM CHLORIDE 0.9% 1,000 ML IV SCH (22:38)
[2019-07-15 02:07] VITALS: BP 118/83
[2019-07-15] MEDS: DIPHENHYDRAMINE 50 MG/ML, 1ML IVPush PRN ×2 (02:11→20:24)
[2019-07-15] MEDS: METRONIDAZOLE PMX 500MG/100ML 100 ML IV SCH ×3 (05:27→21:42)
[2019-07-15 06:00] LABS: BASOPHILS # (AUTO) 0.02 x10^3/uL (0-0.1); BASOPHILS % (AUTO) 0 % (0-1); EOSINOPHILS # (AUTO) 0.23 x10^3/uL (0-0.4); EOSINOPHILS % (AUTO) 2 % (1-7); LYMPHOCYTES # (AUTO) 0.69 x10^3/uL (1-3.4); LYMPHOCYTES % (AUTO) 5 % (22-44); MD NO; MEAN CORPUSCULAR HEMOGLOBIN 30.3 pg (27.0-34.8); MEAN CORPUSCULAR VOLUME 89.1 fL (80-100); MEAN PLATELET VOLUME 9.1 fL (7.4-10.4); MONOCYTES # (AUTO) 0.84 x10^3/uL (0.2-0.8); MONOCYTES % (AUTO) 7 % (2-9); NEUTROPHILS # (AUTO) 10.99 x10^3/uL (1.8-6.8); NEUTROPHILS % (AUTO) 86 % (42-75); PLATELET COUNT 442 x10^3/uL (130-400); RED BLOOD COUNT 3.93 x10^6/uL (3.82-5.3); RED CELL DISTRIBUTION WIDTH 15.4 % (9.6-15.2)
[2019-07-15 06:09] LABS: ANION GAP 7 mmol/L (5-15); CALCIUM 9.2 mg/dL (8.5-10.1); CHLORIDE 98 mmol/L (98-107); CREATININE 0.52 mg/dL (0.55-1.02)
[2019-07-15 06:51] VITALS: BP 122/80
[2019-07-15] MEDS: INSULIN LISPRO 100 UNITS/ML, PEN SQ-INSULIN SCH (07:17)
[2019-07-15] MEDS: PANTOPRAZOLE 40 MG IV IVPush SCH (07:48)
[2019-07-15] MEDS: CEFTRIAXONE PMX 1GM/50ML 50 ML IV SCH ×2 (11:07→23:00)
[2019-07-15] MEDS ORDERED: AMINO ACID 10% IV SCH (17:00)
[2019-07-15] MEDS ORDERED: SMOF TPN IV SCH (17:00)
[2019-07-15] MEDS ORDERED: DEXTROSE 70% IV SCH (17:00)
[2019-07-15] MEDS ORDERED: [UNRECOGNIZED DRUG - OTHER] IV SCH (17:00)
[2019-07-15] MEDS ORDERED: FAT EMUL IV SCH (17:00)
[2019-07-15] MEDS: FILTER, DISP 1.2 MICRON FOR TPN/PVN IV PRN (17:14)
[2019-07-15 19:41] VITALS: BP 117/83
[2019-07-15] MEDS: HYDROmorphone PCA 30 MG/30 ML IV SCH (20:06)
[2019-07-15] MEDS: SODIUM CHLORIDE 0.9% 1,000 ML IV SCH (22:59)
[2019-07-16 02:17] VITALS: BP 126/82
[2019-07-16] MEDS: DIPHENHYDRAMINE 50 MG/ML, 1ML IVPush PRN ×2 (02:23→21:31)
[2019-07-16] MEDS: METRONIDAZOLE PMX 500MG/100ML 100 ML IV SCH ×3 (05:20→21:21)
[2019-07-16 05:44] LABS: BASOPHILS # (AUTO) 0.03 x10^3/uL (0-0.1); BASOPHILS % (AUTO) 0 % (0-1); EOSINOPHILS # (AUTO) 0.16 x10^3/uL (0-0.4); EOSINOPHILS % (AUTO) 1 % (1-7); LYMPHOCYTES # (AUTO) 0.68 x10^3/uL (1-3.4); LYMPHOCYTES % (AUTO) 6 % (22-44); MD NO; MEAN CORPUSCULAR HEMOGLOBIN 30.1 pg (27.0-34.8); MEAN CORPUSCULAR HGB CONC 33.5 g/dL (32.4-35.8); MEAN CORPUSCULAR VOLUME 89.9 fL (80-100); MEAN PLATELET VOLUME 8.8 fL (7.4-10.4); MONOCYTES # (AUTO) 0.84 x10^3/uL (0.2-0.8); MONOCYTES % (AUTO) 7 % (2-9); NEUTROPHILS # (AUTO) 9.69 x10^3/uL (1.8-6.8); NEUTROPHILS % (AUTO) 85 % (42-75); PLATELET COUNT 444 x10^3/uL (130-400); RED BLOOD COUNT 4.04 x10^6/uL (3.82-5.3); RED CELL DISTRIBUTION WIDTH 15.3 % (9.6-15.2)
[2019-07-16 05:53] LABS: ANION GAP 5 mmol/L (5-15); CALCIUM 8.9 mg/dL (8.5-10.1); CHLORIDE 99 mmol/L (98-107); CREATININE 0.58 mg/dL (0.55-1.02)
[2019-07-16 07:07] VITALS: BP 114/78
[2019-07-16] MEDS: INSULIN LISPRO 100 UNITS/ML, PEN SQ-INSULIN SCH (09:00)
[2019-07-16] MEDS: PANTOPRAZOLE 40 MG IV IVPush SCH (09:53)
[2019-07-16] MEDS: CEFTRIAXONE PMX 1GM/50ML 50 ML IV SCH ×2 (11:48→23:49)
[2019-07-16 13:12] VITALS: BP 111/78
[2019-07-16] MEDS: HYDROmorphone PCA 30 MG/30 ML IV SCH (15:07)
[2019-07-16] MEDS ORDERED: FAT EMUL IV SCH (17:00)
[2019-07-16] MEDS ORDERED: AMINO ACID 10% IV SCH (17:00)
[2019-07-16] MEDS ORDERED: [UNRECOGNIZED DRUG - OTHER] IV SCH (17:00)
[2019-07-16] MEDS ORDERED: DEXTROSE 70% IV SCH (17:00)
[2019-07-16] MEDS ORDERED: SMOF TPN IV SCH (17:00)
[2019-07-16] MEDS: FILTER, DISP 1.2 MICRON FOR TPN/PVN IV PRN (17:53)
[2019-07-16 19:07] VITALS: BP 117/86
[2019-07-16] MEDS: SODIUM CHLORIDE 0.9% 1,000 ML IV SCH (21:33)
[2019-07-17 01:14] VITALS: BP 122/88
[2019-07-17] MEDS: METRONIDAZOLE PMX 500MG/100ML 100 ML IV SCH ×3 (05:46→20:57)
[2019-07-17 06:14] LABS: ANION GAP 5 mmol/L (5-15); CALCIUM 9.4 mg/dL (8.5-10.1); CHLORIDE 100 mmol/L (98-107); CREATININE 0.51 mg/dL (0.55-1.02)
[2019-07-17] MEDS: HYDROmorphone PCA 30 MG/30 ML IV SCH ×2 (06:32→20:57)
[2019-07-17 07:04] VITALS: BP 125/81
[2019-07-17] MEDS: PANTOPRAZOLE 40 MG IV IVPush SCH (08:56)
[2019-07-17] MEDS: INSULIN LISPRO 100 UNITS/ML, PEN SQ-INSULIN SCH (08:56)
[2019-07-17] MEDS: CEFTRIAXONE PMX 1GM/50ML 50 ML IV SCH ×2 (11:03→22:36)
[2019-07-17 15:52] VITALS: BP 132/78
[2019-07-17] MEDS ORDERED: FAT EMUL IV SCH (17:00)
[2019-07-17] MEDS ORDERED: AMINO ACID 10% IV SCH (17:00)
[2019-07-17] MEDS ORDERED: SMOF TPN IV SCH (17:00)
[2019-07-17] MEDS ORDERED: DEXTROSE 70% IV SCH (17:00)
[2019-07-17] MEDS ORDERED: [UNRECOGNIZED DRUG - OTHER] IV SCH (17:00)
[2019-07-17] MEDS: FILTER, DISP 1.2 MICRON FOR TPN/PVN IV PRN (17:07)
[2019-07-17 19:12] VITALS: BP 110/77
[2019-07-17] MEDS: DIPHENHYDRAMINE 50 MG/ML, 1ML IVPush PRN (21:00)
[2019-07-17] MEDS: SODIUM CHLORIDE 0.9% 1,000 ML IV SCH (21:05)
[2019-07-18 01:11] VITALS: BP 118/83
[2019-07-18] MEDS: DIPHENHYDRAMINE 50 MG/ML, 1ML IVPush PRN ×2 (01:21→21:02)
[2019-07-18] MEDS: METRONIDAZOLE PMX 500MG/100ML 100 ML IV SCH ×3 (05:11→21:16)
[2019-07-18 05:56] LABS: ALANINE AMINOTRANSFERASE 52 U/L (12-78); ANION GAP 4 mmol/L (5-15); CALCIUM 9.4 mg/dL (8.5-10.1); CHLORIDE 99 mmol/L (98-107); CREATININE 0.48 mg/dL (0.55-1.02)
[2019-07-18 05:58] LABS: ALKALINE PHOSPHATASE 205 U/L (45-117); BILIRUBIN,TOTAL 1.4 mg/dL (0.2-1.0); TOTAL PROTEIN 8.8 g/dL (6.4-8.2)
[2019-07-18] MEDS: INSULIN LISPRO 100 UNITS/ML, PEN SQ-INSULIN SCH (07:29)
[2019-07-18 07:45] VITALS: BP 119/82
[2019-07-18] MEDS: PANTOPRAZOLE 40 MG IV IVPush SCH (11:24)
[2019-07-18] MEDS: CEFTRIAXONE PMX 1GM/50ML 50 ML IV SCH ×2 (11:24→22:35)
[2019-07-18 14:14] VITALS: BP 116/75
[2019-07-18] MEDS: HYDROmorphone PCA 30 MG/30 ML IV SCH (16:28)
[2019-07-18] MEDS ORDERED: DEXTROSE 70% IV SCH (17:00)
[2019-07-18] MEDS ORDERED: SMOF TPN IV SCH (17:00)
[2019-07-18] MEDS ORDERED: [UNRECOGNIZED DRUG - OTHER] IV SCH (17:00)
[2019-07-18] MEDS ORDERED: FAT EMUL IV SCH (17:00)
[2019-07-18] MEDS ORDERED: AMINO ACID 10% IV SCH (17:00)
[2019-07-18] MEDS: FILTER, DISP 1.2 MICRON FOR TPN/PVN IV PRN (18:15)
[2019-07-18 18:43] VITALS: BP 115/80
[2019-07-18] MEDS: SODIUM CHLORIDE 0.9% 1,000 ML IV SCH (22:33)
[2019-07-19 01:28] VITALS: BP 120/85
[2019-07-19] MEDS: DIPHENHYDRAMINE 50 MG/ML, 1ML IVPush PRN ×2 (01:33→20:52)
[2019-07-19] MEDS: METRONIDAZOLE PMX 500MG/100ML 100 ML IV SCH ×3 (05:23→20:52)
[2019-07-19 05:48] LABS: ANION GAP 6 mmol/L (5-15); CALCIUM 9.2 mg/dL (8.5-10.1); CHLORIDE 99 mmol/L (98-107); CREATININE 0.51 mg/dL (0.55-1.02)
[2019-07-19 05:54] LABS: PREALBUMIN 24.1 mg/dL (20.0-40.0)
[2019-07-19 06:05] LABS: BASOPHILS # (AUTO) 0.02 x10^3/uL (0-0.1); BASOPHILS % (AUTO) 0 % (0-1); EOSINOPHILS # (AUTO) 0.16 x10^3/uL (0-0.4); EOSINOPHILS % (AUTO) 2 % (1-7); LYMPHOCYTES # (AUTO) 0.73 x10^3/uL (1-3.4); LYMPHOCYTES % (AUTO) 7 % (22-44); MD NO; MEAN CORPUSCULAR HEMOGLOBIN 29.8 pg (27.0-34.8); MEAN CORPUSCULAR HGB CONC 33.4 g/dL (32.4-35.8); MEAN CORPUSCULAR VOLUME 89.2 fL (80-100); MEAN PLATELET VOLUME 8.8 fL (7.4-10.4); MONOCYTES # (AUTO) 0.95 x10^3/uL (0.2-0.8); MONOCYTES % (AUTO) 9 % (2-9); NEUTROPHILS # (AUTO) 9.23 x10^3/uL (1.8-6.8); NEUTROPHILS % (AUTO) 83 % (42-75); PLATELET COUNT 278 x10^3/uL (130-400); RED BLOOD COUNT 4.04 x10^6/uL (3.82-5.3); RED CELL DISTRIBUTION WIDTH 15.1 % (9.6-15.2)
[2019-07-19 07:35] VITALS: BP 120/77
[2019-07-19] MEDS: INSULIN LISPRO 100 UNITS/ML, PEN SQ-INSULIN SCH (09:00)
[2019-07-19] MEDS: HYDROmorphone PCA 30 MG/30 ML IV SCH (10:24)
[2019-07-19] MEDS: PANTOPRAZOLE 40 MG IV IVPush SCH (10:30)
[2019-07-19] MEDS: CEFTRIAXONE PMX 1GM/50ML 50 ML IV SCH ×2 (12:20→23:30)
[2019-07-19] MEDS: ONDANSETRON 2MG/ML, 2ML IVPush PRN (12:20)
[2019-07-19 12:46] VITALS: BP 118/78
[2019-07-19] MEDS ORDERED: SMOF TPN IV SCH (17:00)
[2019-07-19] MEDS ORDERED: AMINO ACID 10% IV SCH (17:00)
[2019-07-19] MEDS ORDERED: [UNRECOGNIZED DRUG - OTHER] IV SCH (17:00)
[2019-07-19] MEDS ORDERED: DEXTROSE 70% IV SCH (17:00)
[2019-07-19] MEDS ORDERED: FAT EMUL IV SCH (17:00)
[2019-07-19] MEDS: FILTER, DISP 1.2 MICRON FOR TPN/PVN IV PRN (18:13)
[2019-07-19 20:10] VITALS: BP 107/75
[2019-07-19] MEDS: SODIUM CHLORIDE 0.9% 1,000 ML IV SCH (20:58)
[2019-07-20] MEDS: DIPHENHYDRAMINE 50 MG/ML, 1ML IVPush PRN ×2 (01:00→20:50)
[2019-07-20] MEDS: HYDROmorphone PCA 30 MG/30 ML IV SCH ×2 (01:02→17:14)
[2019-07-20 01:08] VITALS: BP 108/72
[2019-07-20] MEDS: METRONIDAZOLE PMX 500MG/100ML 100 ML IV SCH ×3 (05:26→20:50)
[2019-07-20 06:10] LABS: ANION GAP 6 mmol/L (5-15); CALCIUM 9.4 mg/dL (8.5-10.1); CHLORIDE 100 mmol/L (98-107)
[2019-07-20 07:22] VITALS: BP 111/74
[2019-07-20] MEDS: PANTOPRAZOLE 40 MG IV IVPush SCH (07:31)
[2019-07-20] MEDS: INSULIN LISPRO 100 UNITS/ML, PEN SQ-INSULIN SCH (07:32)
[2019-07-20] MEDS: CEFTRIAXONE PMX 1GM/50ML 50 ML IV SCH ×2 (11:02→22:57)
[2019-07-20 13:31] VITALS: BP 109/76
[2019-07-20] MEDS: FENTANYL 50 MCG PATCH TD SCH (17:14)
[2019-07-20] MEDS ORDERED: [UNRECOGNIZED DRUG - OTHER] IV SCH (18:00)
[2019-07-20] MEDS ORDERED: FILTER, DISP 1.2 MICRON FOR TPN/PVN IV PRN (18:00)
[2019-07-20] MEDS ORDERED: DEXTROSE 70% IV SCH (18:00)
[2019-07-20] MEDS ORDERED: SMOF TPN IV SCH (18:00)
[2019-07-20] MEDS ORDERED: AMINO ACID 10% IV SCH (18:00)
[2019-07-20] MEDS ORDERED: FAT EMUL IV SCH (18:00)
[2019-07-20 20:01] VITALS: BP 118/82
[2019-07-20] MEDS: SODIUM CHLORIDE 0.9% 1,000 ML IV SCH (21:43)
[2019-07-21] MEDS: DIPHENHYDRAMINE 50 MG/ML, 1ML IVPush PRN ×2 (01:00→21:09)
[2019-07-21 01:03] VITALS: BP 113/83
[2019-07-21] MEDS: METRONIDAZOLE PMX 500MG/100ML 100 ML IV SCH ×3 (05:49→21:09)
[2019-07-21 06:30] LABS: ALANINE AMINOTRANSFERASE 40 U/L (12-78); ALBUMIN 2.1 g/dL (3.4-5.0); ANION GAP 5 mmol/L (5-15); CALCIUM 9.5 mg/dL (8.5-10.1); CHLORIDE 104 mmol/L (98-107); CREATININE 0.56 mg/dL (0.55-1.02)
[2019-07-21 06:31] LABS: BASOPHILS # (AUTO) 0.05 x10^3/uL (0-0.1); BASOPHILS % (AUTO) 0 % (0-1); EOSINOPHILS # (AUTO) 0.16 x10^3/uL (0-0.4); EOSINOPHILS % (AUTO) 1 % (1-7); LYMPHOCYTES # (AUTO) 0.66 x10^3/uL (1-3.4); LYMPHOCYTES % (AUTO) 5 % (22-44); MD NO; MEAN CORPUSCULAR HEMOGLOBIN 30.1 pg (27.0-34.8); MEAN CORPUSCULAR HGB CONC 33.4 g/dL (32.4-35.8); MEAN CORPUSCULAR VOLUME 90.2 fL (80-100); MEAN PLATELET VOLUME 9.1 fL (7.4-10.4); MONOCYTES # (AUTO) 1.02 x10^3/uL (0.2-0.8); MONOCYTES % (AUTO) 8 % (2-9); NEUTROPHILS # (AUTO) 10.45 x10^3/uL (1.8-6.8); NEUTROPHILS % (AUTO) 85 % (42-75); PLATELET COUNT 334 x10^3/uL (130-400); RED BLOOD COUNT 4.07 x10^6/uL (3.82-5.3)
[2019-07-21 06:34] LABS: ALKALINE PHOSPHATASE 190 U/L (45-117); BILIRUBIN,TOTAL 1.2 mg/dL (0.2-1.0); PREALBUMIN 23.4 mg/dL (20.0-40.0); TOTAL PROTEIN 9.3 g/dL (6.4-8.2); TRIGLYCERIDES 212 mg/dL (50-200)
[2019-07-21] MEDS: INSULIN LISPRO 100 UNITS/ML, PEN SQ-INSULIN SCH (07:53)
[2019-07-21 07:59] VITALS: BP 107/75
[2019-07-21] MEDS: PANTOPRAZOLE 40 MG IV IVPush SCH (08:33)
[2019-07-21] MEDS ORDERED: FENTANYL PF 100 MCG/2ML ONE (11:07)
[2019-07-21] MEDS ORDERED: MIDAZOLAM 1 MG/ML, 5ML ONE (11:07)
[2019-07-21] MEDS ORDERED: NALOXONE 1 MG/ML, 2ML ONE (11:08)
[2019-07-21] MEDS ORDERED: FLUMAZENIL 0.1 MG/1 ML, 5ML ONE (11:08)
[2019-07-21] MEDS: SODIUM CHLORIDE 0.9% 1,000 ML IV SCH (12:02)
[2019-07-21] MEDS: CEFTRIAXONE PMX 1GM/50ML 50 ML IV SCH ×2 (12:02→23:03)
[2019-07-21] MEDS: HYDROmorphone PCA 30 MG/30 ML IV SCH (13:03)
[2019-07-21 15:00] VITALS: BP 103/71
[2019-07-21] MEDS ORDERED: FAT EMUL IV SCH (17:00)
[2019-07-21] MEDS ORDERED: DEXTROSE 70% IV SCH (17:00)
[2019-07-21] MEDS ORDERED: SMOF TPN IV SCH (17:00)
[2019-07-21] MEDS ORDERED: AMINO ACID 10% IV SCH (17:00)
[2019-07-21] MEDS ORDERED: FILTER, DISP 1.2 MICRON FOR TPN/PVN IV PRN (17:00)
[2019-07-21] MEDS ORDERED: [UNRECOGNIZED DRUG - OTHER] IV SCH (17:00)
[2019-07-21] MEDS: ONDANSETRON 2MG/ML, 2ML IVPush PRN (17:44)
[2019-07-21 19:28] VITALS: BP 123/81
[2019-07-22] MEDS: DIPHENHYDRAMINE 50 MG/ML, 1ML IVPush PRN ×2 (01:12→20:14)
[2019-07-22 04:15] VITALS: BP 119/80
[2019-07-22 04:38] LABS: ANION GAP 7 mmol/L (5-15); CALCIUM 8.9 mg/dL (8.5-10.1); CHLORIDE 105 mmol/L (98-107); CREATININE 0.66 mg/dL (0.55-1.02)
[2019-07-22 04:48] LABS: INTERNATIONAL NORMALIZED RATIO 1.13 (0.93-1.1)
[2019-07-22] MEDS: METRONIDAZOLE PMX 500MG/100ML 100 ML IV SCH ×3 (05:04→20:14)
[2019-07-22 08:30] VITALS: BP 132/80
[2019-07-22] MEDS: INSULIN LISPRO 100 UNITS/ML, PEN SQ-INSULIN SCH (09:00)
[2019-07-22] MEDS: ONDANSETRON 2MG/ML, 2ML IVPush PRN ×2 (09:48→19:54)
[2019-07-22] MEDS: PANTOPRAZOLE 40 MG IV IVPush SCH (09:48)
[2019-07-22] MEDS: SODIUM CHLORIDE 0.9% 1,000 ML IV SCH (09:50)
[2019-07-22] MEDS: CEFTRIAXONE PMX 1GM/50ML 50 ML IV SCH ×2 (11:39→22:18)
[2019-07-22 14:45] VITALS: BP 121/79
[2019-07-22] MEDS ORDERED: AMINO ACID 10% IV SCH (17:00)
[2019-07-22] MEDS ORDERED: SMOF TPN IV SCH (17:00)
[2019-07-22] MEDS ORDERED: DEXTROSE 70% IV SCH (17:00)
[2019-07-22] MEDS ORDERED: [UNRECOGNIZED DRUG - OTHER] IV SCH (17:00)
[2019-07-22] MEDS ORDERED: FAT EMUL IV SCH (17:00)
[2019-07-22] MEDS: FILTER, DISP 1.2 MICRON FOR TPN/PVN IV PRN (17:47)
[2019-07-22 19:56] VITALS: BP 125/88
[2019-07-23] MEDS: HYDROmorphone 1 MG/ML, 1ML INJ IV PRN ×5 (00:29→16:54)
[2019-07-23] MEDS: ONDANSETRON 2MG/ML, 2ML IVPush PRN ×2 (00:31→17:00)
[2019-07-23 01:01] VITALS: BP 114/79
[2019-07-23] MEDS: METRONIDAZOLE PMX 500MG/100ML 100 ML IV SCH ×3 (04:41→21:07)
[2019-07-23 06:46] VITALS: BP 118/82
[2019-07-23] MEDS: INSULIN LISPRO 100 UNITS/ML, PEN SQ-INSULIN SCH (09:00)
[2019-07-23] MEDS: PANTOPRAZOLE 40 MG IV IVPush SCH (09:15)
[2019-07-23] MEDS: CEFTRIAXONE PMX 1GM/50ML 50 ML IV SCH ×2 (11:42→23:11)
[2019-07-23] MEDS: SODIUM CHLORIDE 0.9% 1,000 ML IV SCH (11:42)
[2019-07-23 14:00] VITALS: BP 116/82
[2019-07-23] MEDS ORDERED: SMOF TPN IV SCH (16:00)
[2019-07-23] MEDS ORDERED: [UNRECOGNIZED DRUG - OTHER] IV SCH (16:00)
[2019-07-23] MEDS ORDERED: AMINO ACID 10% IV SCH (16:00)
[2019-07-23] MEDS ORDERED: DEXTROSE 70% IV SCH (16:00)
[2019-07-23] MEDS ORDERED: FAT EMUL IV SCH (16:00)
[2019-07-23] MEDS: FILTER, DISP 1.2 MICRON FOR TPN/PVN IV PRN (16:54)
[2019-07-23] MEDS: FENTANYL 50 MCG PATCH TD SCH (16:54)
[2019-07-23] MEDS: FENTANYL REMOVE PATCH NOTE XX SCH (16:55)
[2019-07-23 19:07] VITALS: BP 115/79
[2019-07-23] MEDS: DIPHENHYDRAMINE 50 MG/ML, 1ML IVPush PRN (21:13)
[2019-07-24 00:16] VITALS: BP 115/77
[2019-07-24] MEDS: DIPHENHYDRAMINE 50 MG/ML, 1ML IVPush PRN ×2 (00:20→21:02)
[2019-07-24] MEDS: HYDROmorphone 1 MG/ML, 1ML INJ IV PRN ×4 (03:22→22:42)
[2019-07-24] MEDS: ONDANSETRON 2MG/ML, 2ML IVPush PRN ×3 (03:42→18:16)
[2019-07-24] MEDS: METRONIDAZOLE PMX 500MG/100ML 100 ML IV SCH ×3 (05:22→21:02)
[2019-07-24 05:57] LABS: CHLORIDE 105 mmol/L (98-107)
[2019-07-24 06:00] LABS: MEAN CORPUSCULAR HEMOGLOBIN 30.3 pg (27.0-34.8); MEAN CORPUSCULAR HGB CONC 33.4 g/dL (32.4-35.8); MEAN CORPUSCULAR VOLUME 90.8 fL (80-100); MEAN PLATELET VOLUME 9.5 fL (7.4-10.4); PLATELET COUNT 378 x10^3/uL (130-400); RED BLOOD COUNT 3.91 x10^6/uL (3.82-5.3); RED CELL DISTRIBUTION WIDTH 15.7 % (9.6-15.2)
[2019-07-24 06:01] LABS: ANION GAP 6 mmol/L (5-15); CALCIUM 9.2 mg/dL (8.5-10.1); CREATININE 0.75 mg/dL (0.55-1.02)
[2019-07-24 06:44] LABS: BASOPHILS # (AUTO) 0.06 x10^3/uL (0-0.1); BASOPHILS % (AUTO) 1 % (0-1); EOSINOPHILS # (AUTO) 0.07 x10^3/uL (0-0.4); EOSINOPHILS % (AUTO) 1 % (1-7); LYMPHOCYTES # (AUTO) 0.76 x10^3/uL (1-3.4); LYMPHOCYTES % (AUTO) 8 % (22-44); MD MORPH REVIEW ONLY; MONOCYTES # (AUTO) 0.79 x10^3/uL (0.2-0.8); MONOCYTES % (AUTO) 8 % (2-9); NEUTROPHILS # (AUTO) 8.37 x10^3/uL (1.8-6.8); NEUTROPHILS % (AUTO) 83 % (42-75)
[2019-07-24 06:46] LABS: <PLATELET ESTIMATE> ADEQUATE; LARGE PLATELETS 1+
[2019-07-24 06:48] LABS: ANISOCYTOSIS 1+
[2019-07-24] MEDS: PANTOPRAZOLE 40 MG IV IVPush SCH (07:43)
[2019-07-24 07:50] VITALS: BP 124/80
[2019-07-24] MEDS: INSULIN LISPRO 100 UNITS/ML, PEN SQ-INSULIN SCH (08:05)
[2019-07-24] MEDS: CEFTRIAXONE PMX 1GM/50ML 50 ML IV SCH ×2 (11:07→22:32)
[2019-07-24] MEDS: SODIUM CHLORIDE 0.9% 1,000 ML IV SCH (11:07)
[2019-07-24 13:40] VITALS: BP 127/84
[2019-07-24] MEDS ORDERED: SMOF TPN IV SCH (16:00)
[2019-07-24] MEDS ORDERED: [UNRECOGNIZED DRUG - OTHER] IV SCH (16:00)
[2019-07-24] MEDS ORDERED: AMINO ACID 10% IV SCH (16:00)
[2019-07-24] MEDS ORDERED: DEXTROSE 70% IV SCH (16:00)
[2019-07-24] MEDS ORDERED: FAT EMUL IV SCH (16:00)
[2019-07-24 19:44] VITALS: BP 127/88
[2019-07-25 01:09] VITALS: BP 114/74
[2019-07-25] MEDS: DIPHENHYDRAMINE 50 MG/ML, 1ML IVPush PRN ×2 (01:19→21:23)
[2019-07-25] MEDS: METRONIDAZOLE PMX 500MG/100ML 100 ML IV SCH ×3 (05:26→21:23)
[2019-07-25] MEDS: HYDROmorphone 1 MG/ML, 1ML INJ IV PRN ×4 (05:26→22:12)
[2019-07-25 06:18] LABS: ANION GAP 4 mmol/L (5-15); CALCIUM 9.1 mg/dL (8.5-10.1); CHLORIDE 110 mmol/L (98-107)
[2019-07-25 06:21] LABS: CREATININE 0.62 mg/dL (0.55-1.02)
[2019-07-25 06:46] VITALS: BP 116/82
[2019-07-25] MEDS: INSULIN LISPRO 100 UNITS/ML, PEN SQ-INSULIN SCH (07:54)
[2019-07-25] MEDS: PANTOPRAZOLE 40 MG IV IVPush SCH (08:40)
[2019-07-25] MEDS: ONDANSETRON 2MG/ML, 2ML IVPush PRN (08:40)
[2019-07-25] MEDS: CEFTRIAXONE PMX 1GM/50ML 50 ML IV SCH ×2 (11:29→23:08)
[2019-07-25 12:46] VITALS: BP 113/77
[2019-07-25] MEDS: SODIUM CHLORIDE 0.9% 1,000 ML IV SCH (13:12)
[2019-07-25] MEDS: FILTER, DISP 1.2 MICRON FOR TPN/PVN IV PRN (16:09)
[2019-07-25] MEDS ORDERED: AMINO ACID 10% IV SCH (17:00)
[2019-07-25] MEDS ORDERED: [UNRECOGNIZED DRUG - OTHER] IV SCH (17:00)
[2019-07-25] MEDS ORDERED: DEXTROSE 70% IV SCH (17:00)
[2019-07-25] MEDS ORDERED: SMOF TPN IV SCH (17:00)
[2019-07-25] MEDS ORDERED: FAT EMUL IV SCH (17:00)
[2019-07-25 20:11] VITALS: BP 119/83
[2019-07-26] MEDS: DIPHENHYDRAMINE 50 MG/ML, 1ML IVPush PRN ×3 (00:34→20:56)
[2019-07-26 00:38] VITALS: BP 123/84
[2019-07-26] MEDS: ONDANSETRON 2MG/ML, 2ML IVPush PRN ×3 (00:47→14:38)
[2019-07-26] MEDS: HYDROmorphone 1 MG/ML, 1ML INJ IV PRN ×6 (02:30→22:37)
[2019-07-26] MEDS: METRONIDAZOLE PMX 500MG/100ML 100 ML IV SCH ×3 (04:53→20:57)
[2019-07-26 05:30] LABS: ANION GAP 6 mmol/L (5-15); CALCIUM 9.1 mg/dL (8.5-10.1); CHLORIDE 108 mmol/L (98-107); CREATININE 0.54 mg/dL (0.55-1.02)
[2019-07-26] MEDS: INSULIN LISPRO 100 UNITS/ML, PEN SQ-INSULIN SCH (06:53)
[2019-07-26 07:24] VITALS: BP 104/72
[2019-07-26] MEDS: PANTOPRAZOLE 40 MG IV IVPush SCH (07:33)
[2019-07-26] MEDS: CEFTRIAXONE PMX 1GM/50ML 50 ML IV SCH ×2 (10:46→22:39)
[2019-07-26] MEDS: FENTANYL REMOVE PATCH NOTE XX SCH (12:29)
[2019-07-26] MEDS: FENTANYL 50 MCG PATCH TD SCH (12:29)
[2019-07-26 14:09] VITALS: BP 122/84
[2019-07-26] MEDS: FILTER, DISP 1.2 MICRON FOR TPN/PVN IV PRN (17:06)
[2019-07-26] MEDS ORDERED: SMOF TPN IV SCH (18:00)
[2019-07-26] MEDS ORDERED: FAT EMUL IV SCH (18:00)
[2019-07-26] MEDS ORDERED: [UNRECOGNIZED DRUG - OTHER] IV SCH (18:00)
[2019-07-26] MEDS ORDERED: AMINO ACID 10% IV SCH (18:00)
[2019-07-26] MEDS ORDERED: DEXTROSE 70% IV SCH (18:00)
[2019-07-26 19:31] VITALS: BP 110/75
[2019-07-27 01:18] VITALS: BP 120/83
[2019-07-27] MEDS: DIPHENHYDRAMINE 50 MG/ML, 1ML IVPush PRN ×2 (01:23→21:42)
[2019-07-27] MEDS: ONDANSETRON 2MG/ML, 2ML IVPush PRN (01:38)
[2019-07-27] MEDS: HYDROmorphone 1 MG/ML, 1ML INJ IV PRN ×6 (02:58→23:56)
[2019-07-27] MEDS: METRONIDAZOLE PMX 500MG/100ML 100 ML IV SCH ×3 (05:02→21:41)
[2019-07-27 05:35] LABS: ANION GAP 4 mmol/L (5-15); CHLORIDE 105 mmol/L (98-107); CREATININE 0.55 mg/dL (0.55-1.02)
[2019-07-27 06:26] VITALS: BP 111/81
[2019-07-27] MEDS ORDERED: SODIUM CHLORIDE 0.9% 1,000 ML IV SCH (08:00)
[2019-07-27] MEDS: INSULIN LISPRO 100 UNITS/ML, PEN SQ-INSULIN SCH (08:05)
[2019-07-27] MEDS: PANTOPRAZOLE 40 MG IV IVPush SCH (08:19)
[2019-07-27] MEDS: SODIUM CHLORIDE 0.9% 1,000 ML IV SCH (08:21)
[2019-07-27] MEDS: CEFTRIAXONE PMX 1GM/50ML 50 ML IV SCH ×2 (10:59→23:10)
[2019-07-27 15:18] VITALS: BP 118/71
[2019-07-27] MEDS ORDERED: HYDROmorphone 2 MG/ML, 1ML ONE ×2 (16:53→23:53)
[2019-07-27] MEDS ORDERED: SMOF TPN IV SCH (18:00)
[2019-07-27] MEDS ORDERED: AMINO ACID 10% IV SCH (18:00)
[2019-07-27] MEDS ORDERED: [UNRECOGNIZED DRUG - OTHER] IV SCH (18:00)
[2019-07-27] MEDS ORDERED: FAT EMUL IV SCH (18:00)
[2019-07-27] MEDS ORDERED: DEXTROSE 70% IV SCH (18:00)
[2019-07-27 20:25] VITALS: BP 103/65
[2019-07-28] MEDS: DIPHENHYDRAMINE 50 MG/ML, 1ML IVPush PRN ×3 (02:20→21:04)
[2019-07-28 02:27] VITALS: BP 123/97
[2019-07-28] MEDS: HYDROmorphone 2 MG/ML, 1ML IV PRN ×4 (05:13→17:56)
[2019-07-28] MEDS: METRONIDAZOLE PMX 500MG/100ML 100 ML IV SCH ×3 (05:13→21:07)
[2019-07-28 06:43] LABS: ALANINE AMINOTRANSFERASE 44 U/L (12-78); ALBUMIN 2.2 g/dL (3.4-5.0); ANION GAP 6 mmol/L (5-15); CALCIUM 8.9 mg/dL (8.5-10.1); CHLORIDE 105 mmol/L (98-107); CREATININE 0.49 mg/dL (0.55-1.02)
[2019-07-28 06:48] LABS: ALKALINE PHOSPHATASE 121 U/L (45-117); BILIRUBIN,TOTAL 0.6 mg/dL (0.2-1.0); TOTAL PROTEIN 8.2 g/dL (6.4-8.2)
[2019-07-28] MEDS: INSULIN LISPRO 100 UNITS/ML, PEN SQ-INSULIN SCH (07:22)
[2019-07-28 07:48] VITALS: BP 127/95
[2019-07-28] MEDS: PANTOPRAZOLE 40 MG IV IVPush SCH (08:29)
[2019-07-28] MEDS: SODIUM CHLORIDE 0.9% 1,000 ML IV SCH (10:49)
[2019-07-28] MEDS: CEFTRIAXONE PMX 1GM/50ML 50 ML IV SCH ×2 (11:00→22:36)
[2019-07-28 12:47] VITALS: BP 127/74
[2019-07-28] MEDS ORDERED: AMINO ACID 10% IV SCH (17:00)
[2019-07-28] MEDS ORDERED: FAT EMUL IV SCH (17:00)
[2019-07-28] MEDS ORDERED: SMOF TPN IV SCH (17:00)
[2019-07-28] MEDS ORDERED: DEXTROSE 70% IV SCH (17:00)
[2019-07-28] MEDS ORDERED: FILTER, DISP 1.2 MICRON FOR TPN/PVN IV PRN (17:00)
[2019-07-28] MEDS ORDERED: [UNRECOGNIZED DRUG - OTHER] IV SCH (17:00)
[2019-07-28 19:11] VITALS: BP 125/89
[2019-07-29] MEDS: HYDROmorphone 2 MG/ML, 1ML IV PRN ×6 (02:02→23:16)
[2019-07-29 02:13] VITALS: BP 104/61
[2019-07-29] MEDS: METRONIDAZOLE PMX 500MG/100ML 100 ML IV SCH ×3 (05:04→21:12)
[2019-07-29 06:08] LABS: ANION GAP 6 mmol/L (5-15); CALCIUM 8.8 mg/dL (8.5-10.1); CHLORIDE 104 mmol/L (98-107); CREATININE 0.49 mg/dL (0.55-1.02)
[2019-07-29 06:21] LABS: MEAN CORPUSCULAR HGB CONC 33.2 g/dL (32.4-35.8); MEAN CORPUSCULAR VOLUME 90.3 fL (80-100); RED BLOOD COUNT 3.85 x10^6/uL (3.82-5.3); RED CELL DISTRIBUTION WIDTH 15.1 % (9.6-15.2)
[2019-07-29 06:48] LABS: BASOPHILS # (AUTO) 0.04 x10^3/uL (0-0.1); BASOPHILS % (AUTO) 1 % (0-1); EOSINOPHILS # (AUTO) 0.25 x10^3/uL (0-0.4); EOSINOPHILS % (AUTO) 3 % (1-7); LYMPHOCYTES % (AUTO) 11 % (22-44); MD SCAN; MEAN PLATELET VOLUME 9.8 fL (7.4-10.4); MONOCYTES # (AUTO) 0.55 x10^3/uL (0.2-0.8); MONOCYTES % (AUTO) 7 % (2-9); NEUTROPHILS # (AUTO) 6.33 x10^3/uL (1.8-6.8); NEUTROPHILS % (AUTO) 78 % (42-75); PLATELET COUNT 407 x10^3/uL (130-400)
[2019-07-29 07:24] VITALS: BP 106/74
[2019-07-29] MEDS: PANTOPRAZOLE 40 MG IV IVPush SCH (07:35)
[2019-07-29] MEDS: DIPHENHYDRAMINE 50 MG/ML, 1ML IVPush PRN ×2 (07:36→21:13)
[2019-07-29] MEDS: INSULIN LISPRO 100 UNITS/ML, PEN SQ-INSULIN SCH (08:42)
[2019-07-29] MEDS: CEFTRIAXONE PMX 1GM/50ML 50 ML IV SCH ×2 (12:16→23:04)
[2019-07-29] MEDS: SODIUM CHLORIDE 0.9% 1,000 ML IV SCH (13:45)
[2019-07-29 14:54] VITALS: BP 118/78
[2019-07-29] MEDS ORDERED: DEXTROSE 70% IV SCH (17:00)
[2019-07-29] MEDS ORDERED: FAT EMUL IV SCH (17:00)
[2019-07-29] MEDS ORDERED: [UNRECOGNIZED DRUG - OTHER] IV SCH (17:00)
[2019-07-29] MEDS ORDERED: AMINO ACID 10% IV SCH (17:00)
[2019-07-29] MEDS ORDERED: SMOF TPN IV SCH (17:00)
[2019-07-29] MEDS ORDERED: FILTER, DISP 1.2 MICRON FOR TPN/PVN IV PRN (17:00)
[2019-07-29] MEDS: FENTANYL 50 MCG PATCH TD SCH (17:37)
[2019-07-29] MEDS: FENTANYL REMOVE PATCH NOTE XX SCH (17:37)
[2019-07-29 20:28] VITALS: BP 135/87
[2019-07-30] MEDS: DIPHENHYDRAMINE 50 MG/ML, 1ML IVPush PRN ×2 (02:01→21:27)
[2019-07-30 02:19] VITALS: BP 129/86
[2019-07-30] MEDS: HYDROmorphone 2 MG/ML, 1ML IV PRN ×5 (04:36→23:20)
[2019-07-30] MEDS: METRONIDAZOLE PMX 500MG/100ML 100 ML IV SCH ×3 (05:25→21:27)
[2019-07-30 07:49] VITALS: BP 134/86
[2019-07-30] MEDS: ONDANSETRON 2MG/ML, 2ML IVPush PRN (07:54)
[2019-07-30] MEDS: PANTOPRAZOLE 40 MG IV IVPush SCH (07:54)
[2019-07-30 08:18] LABS: MEAN CORPUSCULAR HEMOGLOBIN 29.9 pg (27.0-34.8); MEAN CORPUSCULAR HGB CONC 32.9 g/dL (32.4-35.8); MEAN CORPUSCULAR VOLUME 90.8 fL (80-100); MEAN PLATELET VOLUME 9.8 fL (7.4-10.4); PLATELET COUNT 409 x10^3/uL (130-400); RED CELL DISTRIBUTION WIDTH 15.2 % (9.6-15.2)
[2019-07-30 08:28] LABS: ALANINE AMINOTRANSFERASE 40 U/L (12-78); ALBUMIN 2.4 g/dL (3.4-5.0); ANION GAP 5 mmol/L (5-15); CALCIUM 9.1 mg/dL (8.5-10.1); CHLORIDE 104 mmol/L (98-107); CREATININE 0.46 mg/dL (0.55-1.02)
[2019-07-30 08:30] LABS: ALKALINE PHOSPHATASE 113 U/L (45-117); BILIRUBIN,TOTAL 0.6 mg/dL (0.2-1.0); TOTAL PROTEIN 8.3 g/dL (6.4-8.2)
[2019-07-30 08:47] LABS: BASOPHILS # (AUTO) 0.02 x10^3/uL (0-0.1); BASOPHILS % (AUTO) 0 % (0-1); EOSINOPHILS # (AUTO) 0.26 x10^3/uL (0-0.4); EOSINOPHILS % (AUTO) 3 % (1-7); LYMPHOCYTES # (AUTO) 0.78 x10^3/uL (1-3.4); LYMPHOCYTES % (AUTO) 8 % (22-44); MD SCAN; MONOCYTES # (AUTO) 0.59 x10^3/uL (0.2-0.8); MONOCYTES % (AUTO) 6 % (2-9); NEUTROPHILS # (AUTO) 7.83 x10^3/uL (1.8-6.8); NEUTROPHILS % (AUTO) 83 % (42-75)
[2019-07-30] MEDS: INSULIN LISPRO 100 UNITS/ML, PEN SQ-INSULIN SCH (08:56)
[2019-07-30] MEDS: CEFTRIAXONE PMX 1GM/50ML 50 ML IV SCH ×2 (11:27→23:12)
[2019-07-30 13:10] VITALS: BP 117/79
[2019-07-30] MEDS: SODIUM CHLORIDE 0.9% 1,000 ML IV SCH (15:32)
[2019-07-30] MEDS ORDERED: FAT EMUL IV SCH (17:00)
[2019-07-30] MEDS ORDERED: DEXTROSE 70% IV SCH (17:00)
[2019-07-30] MEDS ORDERED: AMINO ACID 10% IV SCH (17:00)
[2019-07-30] MEDS ORDERED: SMOF TPN IV SCH (17:00)
[2019-07-30] MEDS ORDERED: [UNRECOGNIZED DRUG - OTHER] IV SCH (17:00)
[2019-07-30 19:51] VITALS: BP 115/80
[2019-07-31] MEDS: DIPHENHYDRAMINE 50 MG/ML, 1ML IVPush PRN (02:16)
[2019-07-31 02:18] VITALS: BP 114/74
[2019-07-31] MEDS: HYDROmorphone 2 MG/ML, 1ML IV PRN ×3 (04:46→13:53)
[2019-07-31] MEDS: METRONIDAZOLE PMX 500MG/100ML 100 ML IV SCH ×3 (04:46→23:16)
[2019-07-31 06:47] LABS: ANION GAP 5 mmol/L (5-15); CALCIUM 8.6 mg/dL (8.5-10.1); CHLORIDE 108 mmol/L (98-107); CREATININE 0.44 mg/dL (0.55-1.02)
[2019-07-31 07:40] VITALS: BP 107/52
[2019-07-31] MEDS: PANTOPRAZOLE 40 MG IV IVPush SCH (08:23)
[2019-07-31] MEDS: INSULIN LISPRO 100 UNITS/ML, PEN SQ-INSULIN SCH (08:23)
[2019-07-31] MEDS: CEFTRIAXONE PMX 1GM/50ML 50 ML IV SCH (11:22)
[2019-07-31] MEDS: SODIUM CHLORIDE 0.9% 1,000 ML IV SCH (11:23)
[2019-07-31 12:48] LABS: INTERNATIONAL NORMALIZED RATIO 1.15 (0.93-1.1); PROTHROMBIN TIME 12.2 Seconds (9.6-11.5)
[2019-07-31] MEDS ORDERED: HEPARIN 1,000 UNITS/ML, 10ML ONE (14:06)
[2019-07-31] MEDS ORDERED: INDIGO CARMINE 0.8%, 5ML ONE (14:06)
[2019-07-31] MEDS ORDERED: METHYLENE BLUE 10 MG/ML 10ML ONE ×2 (14:06→18:23)
[2019-07-31] MEDS ORDERED: HEPARIN 5,000 UNITS/ML, 1ML ONE (14:06)
[2019-07-31] MEDS ORDERED: FENTANYL PF 250 MCG/5ML ONE ×3 (14:29→21:14)
[2019-07-31] MEDS ORDERED: MIDAZOLAM 1 MG/ML, 2ML ONE (14:29)
[2019-07-31] MEDS ORDERED: DEXTROSE 70% IV SCH (16:00)
[2019-07-31] MEDS ORDERED: SMOF TPN IV SCH (16:00)
[2019-07-31] MEDS ORDERED: FAT EMUL IV SCH (16:00)
[2019-07-31] MEDS ORDERED: [UNRECOGNIZED DRUG - OTHER] IV SCH (16:00)
[2019-07-31] MEDS ORDERED: AMINO ACID 10% IV SCH (16:00)
[2019-07-31] MEDS ORDERED: SUCCINYLCHOLINE 20 MG/ML, 10ML ONE (16:36)
[2019-07-31] MEDS ORDERED: METOCLOPRAMIDE 5 MG/ML, 2ML ONE (16:56)
[2019-07-31] MEDS ORDERED: METOPROLOL 1 MG/ML, 5ML ONE ×2 (17:03→17:34)
[2019-07-31] MEDS ORDERED: hydrALAzine 20 MG/ML, 1ML IV PRN (18:00)
[2019-07-31] MEDS ORDERED: ONDANSETRON 2MG/ML, 2ML IV PRN ×2 (18:00→21:30)
[2019-07-31] MEDS ORDERED: MIDAZOLAM 1 MG/ML, 2ML IV PRN ×2 (18:00→21:30)
[2019-07-31] MEDS ORDERED: PROMETHAZINE 25 MG/ML, 1ML IV PRN ×2 (18:00→21:30)
[2019-07-31] MEDS ORDERED: LABETALOL 5MG/ML, 20ML IV PRN (18:00)
[2019-07-31] MEDS ORDERED: HYDROmorphone 2 MG/ML, 1ML IVPush PRN ×2 (18:00→21:30)
[2019-07-31] MEDS ORDERED: MEPERIDINE/PF 25MG/ML,1ML IVPush PRN ×2 (18:00→21:30)
[2019-07-31] MEDS ORDERED: ALBUMIN HUMAN 5%, 25G/500ML ONE (18:24)
[2019-07-31] MEDS ORDERED: PROPOFOL 10 MG/ML, 20ML ONE (20:28)
[2019-07-31] MEDS ORDERED: ROCURONIUM 10MG/ML,5ML ONE ×2 (20:28)
[2019-07-31] MEDS ORDERED: VASOPRESSIN 20 UNIT/ML, 1ML ONE (20:29)
[2019-07-31 20:36] LABS: INTERNATIONAL NORMALIZED RATIO 1.8 (0.93-1.1); PROTHROMBIN TIME 19.2 Seconds (9.6-11.5)
[2019-07-31] MEDS ORDERED: ONDANSETRON 2MG/ML, 2ML ONE (21:16)
[2019-07-31] MEDS ORDERED: HYDROmorphone 1 MG/ML, 1ML INJ ONE (21:25)
[2019-07-31] MEDS ORDERED: FENTANYL PF 100 MCG/2ML ONE ×2 (21:25→22:02)
[2019-07-31] MEDS ORDERED: FENTANYL PF 100 MCG/2ML IV PRN (21:30)
[2019-07-31] MEDS ORDERED: OXYcodone 5 MG/5 ML ORAL.SOL UDC PO PRN (21:30)
[2019-07-31] MEDS: FENTANYL PF 100 MCG/2ML IV PRN ×4 (21:59→22:17)
[2019-07-31] MEDS ORDERED: HYDROmorphone PCA 30 MG/30 ML IV PRN (22:00)
[2019-07-31] MEDS: HYDROmorphone 2 MG/ML, 1ML IVPush PRN ×7 (22:00→22:35)
[2019-07-31] MEDS ORDERED: MEPERIDINE/PF 25MG/ML,1ML ONE (22:02)
[2019-07-31] MEDS ORDERED: PROMETHAZINE 25 MG/ML, 1ML ONE (22:03)
[2019-07-31] MEDS ORDERED: HYDROmorphone 2 MG/ML, 1ML ONE (22:03)
[2019-07-31] MEDS ORDERED: DIAZEPAM 5 MG/ML, 2ML ONE (22:22)
[2019-07-31] MEDS ORDERED: DIAZEPAM 5 MG/ML, 2ML IVPush PRN (22:30)
[2019-07-31] MEDS: FILTER, DISP 1.2 MICRON FOR TPN/PVN IV PRN (23:16)
[2019-08-01] MEDS: CEFTRIAXONE PMX 1GM/50ML 50 ML IV SCH ×2 (00:38→13:28)
[2019-08-01] MEDS: DIPHENHYDRAMINE 50 MG/ML, 1ML IVPush PRN ×3 (01:19→12:18)
[2019-08-01] MEDS ORDERED: HYDROmorphone PCA 30 MG/30 ML IV PRN (02:30)
[2019-08-01 02:50] LABS: ANION GAP 7 mmol/L (5-15); CALCIUM 6.6 mg/dL (8.5-10.1); CHLORIDE 112 mmol/L (98-107); CREATININE 0.66 mg/dL (0.55-1.02)
[2019-08-01 02:50] LABS: MEAN CORPUSCULAR HEMOGLOBIN 31.2 pg (27.0-34.8); MEAN CORPUSCULAR HGB CONC 34.2 g/dL (32.4-35.8); MEAN CORPUSCULAR VOLUME 91.2 fL (80-100); PLATELET COUNT 127 x10^3/uL (130-400); RED BLOOD COUNT 3.94 x10^6/uL (3.82-5.3); RED CELL DISTRIBUTION WIDTH 14.6 % (9.6-15.2)
[2019-08-01] MEDS ORDERED: MAGNESIUM SULFATE PMX 2GM/50ML 50 ML ONE (03:07)
[2019-08-01 03:08] LABS: MD YES
[2019-08-01 03:12] LABS: <PLATELET ESTIMATE> DECREASED; ANISOCYTOSIS 1+; BAND#(MANUAL) 5.54 x10^3/uL; BANDS%(MANUAL) 33 % (0-7); LYMPHS% (MANUAL) 3 % (22-44); SEG#(MANUAL) 10.75 x10^3/uL (1.8-6.8); SEGS% (MANUAL) 64 % (42-75)
[2019-08-01 03:13] LABS: LARGE PLATELETS 1+
[2019-08-01] MEDS ORDERED: INSULIN LISPRO 100 UNITS/ML, PEN SQ-INSULIN ONE (03:30)
[2019-08-01] MEDS ORDERED: MAGNESIUM SULFATE PMX 2GM/50ML 50 ML IV ONE (03:30)
[2019-08-01] MEDS ORDERED: SODIUM CHLORIDE 0.45% 1,000 ML IV SCH (04:30)
[2019-08-01] MEDS ORDERED: SODIUM CHLORIDE 0.9%, 500ML IVBOLUS ONE (05:00)
[2019-08-01] MEDS ORDERED: FENTANYL PF 100 MCG/2ML ONE (08:23)
[2019-08-01] MEDS ORDERED: PHENYLEPHRINE 100 MG in SODIUM CHLORIDE 0.9% 240 ML IV PRN (09:00)
[2019-08-01] MEDS: INSULIN LISPRO 100 UNITS/ML, PEN SQ-INSULIN SCH (09:00)
[2019-08-01] MEDS: HYDROmorphone PCA 30 MG/30 ML IV PRN ×2 (09:00→16:42)
[2019-08-01] MEDS: METRONIDAZOLE PMX 500MG/100ML 100 ML IV SCH ×3 (09:19→23:22)
[2019-08-01] MEDS: PANTOPRAZOLE 40 MG IV IVPush SCH (09:26)
[2019-08-01] MEDS ORDERED: ALBUMIN HUMAN 25% 100 ML IV ONE (09:30)
[2019-08-01 14:57] LABS: ANION GAP 11 mmol/L (5-15); CALCIUM 6.9 mg/dL (8.5-10.1); CHLORIDE 111 mmol/L (98-107); CREATININE 0.62 mg/dL (0.55-1.02)
[2019-08-01] MEDS ORDERED: SMOF TPN IV SCH (17:00)
[2019-08-01] MEDS ORDERED: [UNRECOGNIZED DRUG - OTHER] IV SCH (17:00)
[2019-08-01] MEDS ORDERED: AMINO ACID 10% IV SCH (17:00)
[2019-08-01] MEDS ORDERED: FAT EMUL IV SCH (17:00)
[2019-08-01] MEDS ORDERED: DEXTROSE 70% IV SCH (17:00)
[2019-08-01] MEDS: FILTER, DISP 1.2 MICRON FOR TPN/PVN IV PRN (17:19)
[2019-08-01] MEDS: FENTANYL 50 MCG PATCH TD SCH (17:19)
[2019-08-01] MEDS: FENTANYL REMOVE PATCH NOTE XX SCH (17:20)
[2019-08-02] MEDS: HYDROmorphone PCA 30 MG/30 ML IV PRN ×3 (01:09→19:17)
[2019-08-02] MEDS: CEFTRIAXONE PMX 1GM/50ML 50 ML IV SCH ×2 (01:09→12:36)
[2019-08-02] MEDS: DIPHENHYDRAMINE 50 MG/ML, 1ML IVPush PRN ×3 (01:22→20:50)
[2019-08-02] MEDS: SODIUM CHLORIDE 0.45% 1,000 ML IV SCH ×3 (04:44→20:02)
[2019-08-02 04:45] LABS: ANION GAP 6 mmol/L (5-15); CALCIUM 7.8 mg/dL (8.5-10.1); CHLORIDE 103 mmol/L (98-107)
[2019-08-02] MEDS ORDERED: POTASSIUM PHOSPHATE 22 MEQ in SODIUM CHLORIDE 0.9% 250 ML IV ONE (07:30)
[2019-08-02] MEDS: METRONIDAZOLE PMX 500MG/100ML 100 ML IV SCH ×3 (08:49→23:09)
[2019-08-02] MEDS: PANTOPRAZOLE 40 MG IV IVPush SCH (08:49)
[2019-08-02] MEDS ORDERED: PHENYLEPHRINE 100 MG in SODIUM CHLORIDE 0.9% 240 ML IV PRN (09:00)
[2019-08-02] MEDS: ONDANSETRON 2MG/ML, 2ML IVPush PRN (09:00)
[2019-08-02] MEDS: INSULIN LISPRO 100 UNITS/ML, PEN MEDIUM DOSE SS SQ-INSULIN SCH ×3 (11:00→23:00)
[2019-08-02] MEDS ORDERED: DEXTROSE 70% IV SCH (17:00)
[2019-08-02] MEDS ORDERED: [UNRECOGNIZED DRUG - OTHER] IV SCH (17:00)
[2019-08-02] MEDS ORDERED: SMOF TPN IV SCH (17:00)
[2019-08-02] MEDS ORDERED: AMINO ACID 10% IV SCH (17:00)
[2019-08-02] MEDS ORDERED: FAT EMUL IV SCH (17:00)
[2019-08-02] MEDS: FILTER, DISP 1.2 MICRON FOR TPN/PVN IV PRN (17:47)
[2019-08-02 20:04] VITALS: BP 102/70
[2019-08-02 23:10] VITALS: BP 93/61
[2019-08-03] VITALS (8 sets, daily range): BP systolic 102–120; BP diastolic 72–90
[2019-08-03] MEDS: CEFTRIAXONE PMX 1GM/50ML 50 ML IV SCH ×2 (00:30→16:21)
[2019-08-03] MEDS: HYDROmorphone PCA 30 MG/30 ML IV PRN ×3 (04:14→21:59)
[2019-08-03] MEDS: INSULIN LISPRO 100 UNITS/ML, PEN MEDIUM DOSE SS SQ-INSULIN SCH ×4 (05:00→23:37)
[2019-08-03] MEDS: DIPHENHYDRAMINE 50 MG/ML, 1ML IVPush PRN ×3 (05:20→21:11)
[2019-08-03 05:50] LABS: ANION GAP 6 mmol/L (5-15); CHLORIDE 99 mmol/L (98-107); CREATININE 0.32 mg/dL (0.55-1.02)
[2019-08-03 06:43] LABS: MEAN CORPUSCULAR HEMOGLOBIN 31.4 pg (27.0-34.8); MEAN CORPUSCULAR HGB CONC 34.3 g/dL (32.4-35.8); MEAN CORPUSCULAR VOLUME 91.4 fL (80-100); MEAN PLATELET VOLUME 9.4 fL (7.4-10.4); PLATELET COUNT 119 x10^3/uL (130-400); RED BLOOD COUNT 2.06 x10^6/uL (3.82-5.3); RED CELL DISTRIBUTION WIDTH 15.3 % (9.6-15.2)
[2019-08-03 06:53] LABS: ALANINE AMINOTRANSFERASE 25 U/L (12-78); ALBUMIN 1.5 g/dL (3.4-5.0); ANION GAP 6 mmol/L (5-15); CALCIUM 7.9 mg/dL (8.5-10.1); CHLORIDE 98 mmol/L (98-107); CREATININE 0.41 mg/dL (0.55-1.02)
[2019-08-03 06:55] LABS: ALKALINE PHOSPHATASE 59 U/L (45-117); BILIRUBIN,TOTAL 1.3 mg/dL (0.2-1.0); TOTAL PROTEIN 4.9 g/dL (6.4-8.2)
[2019-08-03 07:40] LABS: MD YES
[2019-08-03 07:47] LABS: EOS#(MANUAL) 0.11 x10^3/uL (0.0-0.4); EOS% (MANUAL) 1 % (1-7); LYMPH#(MANUAL) 0.43 x10^3/uL (1-3.4); LYMPHS% (MANUAL) 4 % (22-44); MONOS#(MANUAL) 0.43 x10^3/uL (0.3-2.7); MONOS% (MANUAL) 4 % (2-9); SEG#(MANUAL) 9.83 x10^3/uL (1.8-6.8); SEGS% (MANUAL) 91 % (42-75)
[2019-08-03 07:48] LABS: <PLATELET ESTIMATE> DECREASED; <PLT MORPHOLOGY> NORMAL PLT MORPH; ANISOCYTOSIS 1+; POLYCHROMASIA 1+
[2019-08-03] MEDS: METRONIDAZOLE PMX 500MG/100ML 100 ML IV SCH ×3 (08:49→23:31)
[2019-08-03] MEDS ORDERED: NYSTATIN 500,000 UNITS/5 ML UDC PO PRN (09:30)
[2019-08-03] MEDS: PANTOPRAZOLE 40 MG IV IVPush SCH (09:51)
[2019-08-03] MEDS ORDERED: MAGNESIUM SULFATE PMX 2GM/50ML 50 ML IV ONE (10:00)
[2019-08-03] MEDS: KETOROLAC 30 MG/1 ML IVPush SCH ×3 (10:37→22:41)
[2019-08-03] MEDS: SODIUM CHLORIDE 0.45% 1,000 ML IV SCH (16:22)
[2019-08-03] MEDS ORDERED: FAT EMUL IV SCH (17:00)
[2019-08-03] MEDS ORDERED: DEXTROSE 70% IV SCH (17:00)
[2019-08-03] MEDS ORDERED: SMOF TPN IV SCH (17:00)
[2019-08-03] MEDS ORDERED: AMINO ACID 10% IV SCH (17:00)
[2019-08-03] MEDS ORDERED: [UNRECOGNIZED DRUG - OTHER] IV SCH (17:00)
[2019-08-03] MEDS: ONDANSETRON 2MG/ML, 2ML IVPush PRN (20:37)
[2019-08-04] MEDS: DIPHENHYDRAMINE 50 MG/ML, 1ML IVPush PRN ×3 (01:41→20:36)
[2019-08-04] MEDS: KETOROLAC 30 MG/1 ML IVPush SCH ×4 (04:59→22:22)
[2019-08-04] MEDS: CEFTRIAXONE PMX 1GM/50ML 50 ML IV SCH ×2 (04:59→17:14)
[2019-08-04 05:30] LABS: CHLORIDE 101 mmol/L (98-107)
[2019-08-04 05:41] LABS: BASOPHILS # (AUTO) 0.02 x10^3/uL (0-0.1); BASOPHILS % (AUTO) 0 % (0-1); EOSINOPHILS % (AUTO) 3 % (1-7); LYMPHOCYTES # (AUTO) 0.42 x10^3/uL (1-3.4); LYMPHOCYTES % (AUTO) 5 % (22-44); MD NO; MEAN CORPUSCULAR HEMOGLOBIN 30.8 pg (27.0-34.8); MEAN CORPUSCULAR HGB CONC 34.2 g/dL (32.4-35.8); MEAN PLATELET VOLUME 9.6 fL (7.4-10.4); MONOCYTES # (AUTO) 0.37 x10^3/uL (0.2-0.8); MONOCYTES % (AUTO) 5 % (2-9); NEUTROPHILS # (AUTO) 6.77 x10^3/uL (1.8-6.8); NEUTROPHILS % (AUTO) 87 % (42-75); PLATELET COUNT 127 x10^3/uL (130-400); RED BLOOD COUNT 3.03 x10^6/uL (3.82-5.3); RED CELL DISTRIBUTION WIDTH 15.6 % (9.6-15.2)
[2019-08-04 05:43] LABS: ALANINE AMINOTRANSFERASE 52 U/L (12-78); ALBUMIN 1.4 g/dL (3.4-5.0); ALKALINE PHOSPHATASE 95 U/L (45-117); ANION GAP 5 mmol/L (5-15); BILIRUBIN,TOTAL 2.6 mg/dL (0.2-1.0); PREALBUMIN 9.4 mg/dL (20.0-40.0); TOTAL PROTEIN 5.2 g/dL (6.4-8.2)
[2019-08-04] MEDS: INSULIN LISPRO 100 UNITS/ML, PEN MEDIUM DOSE SS SQ-INSULIN SCH ×2 (05:56→10:49)
[2019-08-04] MEDS: HYDROmorphone PCA 30 MG/30 ML IV PRN ×2 (06:47→16:01)
[2019-08-04 07:05] VITALS: BP 102/77
[2019-08-04] MEDS: PANTOPRAZOLE 40 MG IV IVPush SCH (08:14)
[2019-08-04] MEDS: METRONIDAZOLE PMX 500MG/100ML 100 ML IV SCH ×3 (08:14→23:39)
[2019-08-04 12:40] VITALS: BP 122/81
[2019-08-04] MEDS ORDERED: [UNRECOGNIZED DRUG - OTHER] IV SCH (17:00)
[2019-08-04] MEDS ORDERED: SMOF TPN IV SCH (17:00)
[2019-08-04] MEDS ORDERED: AMINO ACID 10% IV SCH (17:00)
[2019-08-04] MEDS ORDERED: DEXTROSE 70% IV SCH (17:00)
[2019-08-04] MEDS ORDERED: FAT EMUL IV SCH (17:00)
[2019-08-04] MEDS: FILTER, DISP 1.2 MICRON FOR TPN/PVN IV PRN (17:16)
[2019-08-04] MEDS: FENTANYL 50 MCG PATCH TD SCH (17:17)
[2019-08-04] MEDS: FENTANYL REMOVE PATCH NOTE XX SCH (17:17)
[2019-08-04 19:47] VITALS: BP 112/84
[2019-08-05] MEDS: HYDROmorphone PCA 30 MG/30 ML IV PRN ×2 (00:23→09:41)
[2019-08-05 00:24] VITALS: BP 118/83
[2019-08-05] MEDS: DIPHENHYDRAMINE 50 MG/ML, 1ML IVPush PRN ×4 (00:28→23:32)
[2019-08-05] MEDS: SODIUM CHLORIDE 0.45% 1,000 ML IV SCH ×2 (02:22→20:53)
[2019-08-05] MEDS: CEFTRIAXONE PMX 1GM/50ML 50 ML IV SCH ×2 (04:33→17:33)
[2019-08-05] MEDS: KETOROLAC 30 MG/1 ML IVPush SCH ×4 (04:34→23:24)
[2019-08-05 05:25] LABS: BASOPHILS # (AUTO) 0.02 x10^3/uL (0-0.1); BASOPHILS % (AUTO) 0 % (0-1); EOSINOPHILS # (AUTO) 0.24 x10^3/uL (0-0.4); EOSINOPHILS % (AUTO) 3 % (1-7); LYMPHOCYTES # (AUTO) 0.43 x10^3/uL (1-3.4); LYMPHOCYTES % (AUTO) 5 % (22-44); MD NO; MEAN CORPUSCULAR HEMOGLOBIN 30.7 pg (27.0-34.8); MEAN CORPUSCULAR HGB CONC 34.1 g/dL (32.4-35.8); MEAN CORPUSCULAR VOLUME 90.2 fL (80-100); MEAN PLATELET VOLUME 9.1 fL (7.4-10.4); MONOCYTES # (AUTO) 0.63 x10^3/uL (0.2-0.8); MONOCYTES % (AUTO) 7 % (2-9); NEUTROPHILS # (AUTO) 7.63 x10^3/uL (1.8-6.8); NEUTROPHILS % (AUTO) 85 % (42-75); PLATELET COUNT 163 x10^3/uL (130-400); RED BLOOD COUNT 2.97 x10^6/uL (3.82-5.3); RED CELL DISTRIBUTION WIDTH 15.2 % (9.6-15.2)
[2019-08-05 05:36] LABS: ANION GAP 4 mmol/L (5-15); CALCIUM 8.1 mg/dL (8.5-10.1); CHLORIDE 101 mmol/L (98-107)
[2019-08-05 05:38] LABS: CREATININE 0.32 mg/dL (0.55-1.02)
[2019-08-05] MEDS: INSULIN LISPRO 100 UNITS/ML, PEN MEDIUM DOSE SS SQ-INSULIN SCH (07:30)
[2019-08-05] MEDS: METRONIDAZOLE PMX 500MG/100ML 100 ML IV SCH ×3 (08:07→23:24)
[2019-08-05] MEDS: PANTOPRAZOLE 40 MG IV IVPush SCH (08:11)
[2019-08-05 08:19] VITALS: BP 112/80
[2019-08-05] MEDS ORDERED: FENTANYL REMOVE PATCH NOTE XX SCH (10:30)
[2019-08-05] MEDS ORDERED: HYDROmorphone PCA 30 MG/30 ML IV PRN (10:30)
[2019-08-05] MEDS ORDERED: FENTANYL 75 MCG PATCH TD SCH (10:30)
[2019-08-05 11:55] VITALS: BP 108/75
[2019-08-05] MEDS ORDERED: DEXTROSE 70% IV SCH (17:00)
[2019-08-05] MEDS ORDERED: AMINO ACID 10% IV SCH (17:00)
[2019-08-05] MEDS ORDERED: SMOF TPN IV SCH (17:00)
[2019-08-05] MEDS ORDERED: FAT EMUL IV SCH (17:00)
[2019-08-05] MEDS ORDERED: [UNRECOGNIZED DRUG - OTHER] IV SCH (17:00)
[2019-08-05] MEDS: FILTER, DISP 1.2 MICRON FOR TPN/PVN IV PRN (17:33)
[2019-08-05 19:51] VITALS: BP 127/88
[2019-08-06 00:01] VITALS: BP 124/87
[2019-08-06] MEDS: CEFTRIAXONE PMX 1GM/50ML 50 ML IV SCH ×2 (05:41→16:55)
[2019-08-06] MEDS: KETOROLAC 30 MG/1 ML IVPush SCH ×4 (05:41→23:17)
[2019-08-06] MEDS: ONDANSETRON 2MG/ML, 2ML IVPush PRN (05:59)
[2019-08-06 06:20] LABS: ANION GAP 7 mmol/L (5-15); CALCIUM 8.5 mg/dL (8.5-10.1); CHLORIDE 99 mmol/L (98-107); CREATININE 0.36 mg/dL (0.55-1.02)
[2019-08-06] MEDS: INSULIN LISPRO 100 UNITS/ML, PEN MEDIUM DOSE SS SQ-INSULIN SCH (07:30)
[2019-08-06] MEDS: PANTOPRAZOLE 40 MG IV IVPush SCH (07:43)
[2019-08-06] MEDS: METRONIDAZOLE PMX 500MG/100ML 100 ML IV SCH ×3 (07:44→23:18)
[2019-08-06] MEDS: DIPHENHYDRAMINE 50 MG/ML, 1ML IVPush PRN ×2 (07:44→23:17)
[2019-08-06 07:45] VITALS: BP 110/78
[2019-08-06 14:51] VITALS: BP 111/76
[2019-08-06] MEDS: FILTER, DISP 1.2 MICRON FOR TPN/PVN IV PRN (16:56)
[2019-08-06] MEDS ORDERED: SMOF TPN IV SCH ×2 (17:00)
[2019-08-06] MEDS ORDERED: [UNRECOGNIZED DRUG - OTHER] IV SCH (17:00)
[2019-08-06] MEDS ORDERED: DEXTROSE 70% IV SCH ×2 (17:00)
[2019-08-06] MEDS ORDERED: FAT EMUL IV SCH ×2 (17:00)
[2019-08-06] MEDS ORDERED: AMINO ACID 10% IV SCH ×2 (17:00)
[2019-08-06] MEDS ORDERED: [UNRECOGNIZED DRUG - OTHER] IV SCH (17:00)
[2019-08-06 19:36] VITALS: BP 113/78
[2019-08-06] MEDS: HYDROmorphone PCA 30 MG/30 ML IV PRN (20:56)
[2019-08-07 01:30] VITALS: BP 110/78
[2019-08-07] MEDS: DIPHENHYDRAMINE 50 MG/ML, 1ML IVPush PRN ×2 (01:33→22:22)
[2019-08-07] MEDS: KETOROLAC 30 MG/1 ML IVPush SCH ×4 (05:35→23:41)
[2019-08-07] MEDS: CEFTRIAXONE PMX 1GM/50ML 50 ML IV SCH ×2 (05:35→16:57)
[2019-08-07] MEDS: ONDANSETRON 2MG/ML, 2ML IVPush PRN (06:01)
[2019-08-07 06:25] LABS: ANION GAP 8 mmol/L (5-15); CALCIUM 8.7 mg/dL (8.5-10.1); CHLORIDE 100 mmol/L (98-107); CREATININE 0.54 mg/dL (0.55-1.02)
[2019-08-07 06:31] LABS: MEAN CORPUSCULAR HEMOGLOBIN 30.6 pg (27.0-34.8); MEAN CORPUSCULAR HGB CONC 33.8 g/dL (32.4-35.8); MEAN CORPUSCULAR VOLUME 90.5 fL (80-100); MEAN PLATELET VOLUME 9.1 fL (7.4-10.4); PLATELET COUNT 290 x10^3/uL (130-400); RED BLOOD COUNT 3.29 x10^6/uL (3.82-5.3); RED CELL DISTRIBUTION WIDTH 15.2 % (9.6-15.2)
[2019-08-07 07:00] LABS: BASOPHILS % (AUTO) 0 % (0-1); EOSINOPHILS # (AUTO) 0.11 x10^3/uL (0-0.4); EOSINOPHILS % (AUTO) 1 % (1-7); LYMPHOCYTES # (AUTO) 0.52 x10^3/uL (1-3.4); LYMPHOCYTES % (AUTO) 5 % (22-44); MD SCAN; MONOCYTES # (AUTO) 0.93 x10^3/uL (0.2-0.8); MONOCYTES % (AUTO) 8 % (2-9); NEUTROPHILS # (AUTO) 9.92 x10^3/uL (1.8-6.8); NEUTROPHILS % (AUTO) 86 % (42-75)
[2019-08-07 07:02] VITALS: BP 117/84
[2019-08-07] MEDS: INSULIN LISPRO 100 UNITS/ML, PEN MEDIUM DOSE SS SQ-INSULIN SCH (07:30)
[2019-08-07] MEDS: PANTOPRAZOLE 40 MG IV IVPush SCH (08:10)
[2019-08-07] MEDS: METRONIDAZOLE PMX 500MG/100ML 100 ML IV SCH ×3 (08:10→23:41)
[2019-08-07] MEDS: HYDROmorphone PCA 30 MG/30 ML IV PRN (11:57)
[2019-08-07] MEDS: SODIUM CHLORIDE 0.45% 1,000 ML IV SCH (12:38)
[2019-08-07 13:22] VITALS: BP 118/82
[2019-08-07] MEDS: FENTANYL REMOVE PATCH NOTE XX SCH (16:45)
[2019-08-07] MEDS ORDERED: AMINO ACID 10% IV SCH (17:00)
[2019-08-07] MEDS ORDERED: FENTANYL 100 MCG PATCH TD SCH (17:00)
[2019-08-07] MEDS ORDERED: SMOF TPN IV SCH (17:00)
[2019-08-07] MEDS ORDERED: DEXTROSE 70% IV SCH (17:00)
[2019-08-07] MEDS ORDERED: [UNRECOGNIZED DRUG - OTHER] IV SCH (17:00)
[2019-08-07] MEDS: ENOXAPARIN 40 MG/0.4 ML SQ SCH (17:00)
[2019-08-07] MEDS ORDERED: FAT EMUL IV SCH (17:00)
[2019-08-07] MEDS: FILTER, DISP 1.2 MICRON FOR TPN/PVN IV PRN (17:45)
[2019-08-07 18:52] VITALS: BP 105/71
[2019-08-08] MEDS: DIPHENHYDRAMINE 50 MG/ML, 1ML IVPush PRN ×3 (01:22→23:02)
[2019-08-08 01:24] VITALS: BP 117/78
[2019-08-08] MEDS: CEFTRIAXONE PMX 1GM/50ML 50 ML IV SCH ×2 (05:49→17:39)
[2019-08-08] MEDS: KETOROLAC 30 MG/1 ML IVPush SCH (05:49)
[2019-08-08 06:27] LABS: BASOPHILS % (AUTO) 0 % (0-1); EOSINOPHILS # (AUTO) 0.12 x10^3/uL (0-0.4); EOSINOPHILS % (AUTO) 1 % (1-7); LYMPHOCYTES # (AUTO) 0.52 x10^3/uL (1-3.4); LYMPHOCYTES % (AUTO) 5 % (22-44); MD NO; MEAN CORPUSCULAR HEMOGLOBIN 30.8 pg (27.0-34.8); MEAN CORPUSCULAR VOLUME 90.6 fL (80-100); MEAN PLATELET VOLUME 9.1 fL (7.4-10.4); MONOCYTES # (AUTO) 0.98 x10^3/uL (0.2-0.8); MONOCYTES % (AUTO) 10 % (2-9); NEUTROPHILS # (AUTO) 8.13 x10^3/uL (1.8-6.8); NEUTROPHILS % (AUTO) 83 % (42-75); PLATELET COUNT 308 x10^3/uL (130-400); RED BLOOD COUNT 2.94 x10^6/uL (3.82-5.3); RED CELL DISTRIBUTION WIDTH 14.6 % (9.6-15.2)
[2019-08-08 06:33] LABS: ALANINE AMINOTRANSFERASE 38 U/L (12-78); ALBUMIN 1.7 g/dL (3.4-5.0); ANION GAP 7 mmol/L (5-15); CALCIUM 8.2 mg/dL (8.5-10.1); CHLORIDE 101 mmol/L (98-107); CREATININE 0.33 mg/dL (0.55-1.02)
[2019-08-08 06:35] LABS: ALKALINE PHOSPHATASE 366 U/L (45-117); BILIRUBIN,TOTAL 1.3 mg/dL (0.2-1.0); TOTAL PROTEIN 6.1 g/dL (6.4-8.2)
[2019-08-08] MEDS: INSULIN LISPRO 100 UNITS/ML, PEN MEDIUM DOSE SS SQ-INSULIN SCH (07:30)
[2019-08-08 08:23] VITALS: BP 114/79
[2019-08-08] MEDS: METRONIDAZOLE PMX 500MG/100ML 100 ML IV SCH ×2 (08:31→17:40)
[2019-08-08] MEDS: PANTOPRAZOLE 40 MG IV IVPush SCH (08:31)
[2019-08-08] MEDS: HYDROmorphone PCA 30 MG/30 ML IV PRN (09:20)
[2019-08-08 14:55] VITALS: BP 135/94
[2019-08-08] MEDS ORDERED: [UNRECOGNIZED DRUG - OTHER] IV SCH (17:00)
[2019-08-08] MEDS ORDERED: SMOF TPN IV SCH (17:00)
[2019-08-08] MEDS ORDERED: FAT EMUL IV SCH (17:00)
[2019-08-08] MEDS ORDERED: DEXTROSE 70% IV SCH (17:00)
[2019-08-08] MEDS ORDERED: AMINO ACID 10% IV SCH (17:00)
[2019-08-08] MEDS: FILTER, DISP 1.2 MICRON FOR TPN/PVN IV PRN (17:40)
[2019-08-08] MEDS: KETOROLAC 30 MG/1 ML IVPush PRN (17:40)
[2019-08-08] MEDS: ENOXAPARIN 40 MG/0.4 ML SQ SCH (17:40)
[2019-08-08 20:24] VITALS: BP 114/84
[2019-08-09] MEDS: METRONIDAZOLE PMX 500MG/100ML 100 ML IV SCH ×2 (01:26→09:32)
[2019-08-09] MEDS: DIPHENHYDRAMINE 50 MG/ML, 1ML IVPush PRN ×2 (01:26→23:45)
[2019-08-09 01:30] VITALS: BP 119/82
[2019-08-09] MEDS: KETOROLAC 30 MG/1 ML IVPush PRN ×3 (04:30→20:36)
[2019-08-09] MEDS: CEFTRIAXONE PMX 1GM/50ML 50 ML IV SCH (05:41)
[2019-08-09] MEDS: SODIUM CHLORIDE 0.45% 1,000 ML IV SCH ×2 (06:19→14:24)
[2019-08-09 06:42] VITALS: BP 112/74
[2019-08-09] MEDS: INSULIN LISPRO 100 UNITS/ML, PEN MEDIUM DOSE SS SQ-INSULIN SCH (07:30)
[2019-08-09] MEDS: HYDROmorphone PCA 30 MG/30 ML IV PRN (07:55)
[2019-08-09] MEDS: PANTOPRAZOLE 40 MG IV IVPush SCH (08:40)
[2019-08-09 14:25] VITALS: BP 114/81
[2019-08-09] MEDS: ENOXAPARIN 40 MG/0.4 ML SQ SCH (17:32)
[2019-08-09] MEDS ORDERED: DEXTROSE 70% IV SCH (18:00)
[2019-08-09] MEDS ORDERED: AMINO ACID 10% IV SCH (18:00)
[2019-08-09] MEDS ORDERED: FAT EMUL IV SCH (18:00)
[2019-08-09] MEDS ORDERED: [UNRECOGNIZED DRUG - OTHER] IV SCH (18:00)
[2019-08-09] MEDS ORDERED: SMOF TPN IV SCH (18:00)
[2019-08-09] MEDS: FILTER, DISP 1.2 MICRON FOR TPN/PVN IV PRN (18:04)
[2019-08-09 20:48] VITALS: BP 111/76
[2019-08-10] MEDS: DIPHENHYDRAMINE 50 MG/ML, 1ML IVPush PRN ×2 (01:51→23:09)
[2019-08-10 02:07] VITALS: BP 112/85
[2019-08-10 06:14] LABS: ANION GAP 6 mmol/L (5-15); CALCIUM 8.7 mg/dL (8.5-10.1); CHLORIDE 99 mmol/L (98-107)
[2019-08-10 06:16] LABS: CREATININE 0.33 mg/dL (0.55-1.02)
[2019-08-10] MEDS: INSULIN LISPRO 100 UNITS/ML, PEN MEDIUM DOSE SS SQ-INSULIN SCH (07:30)
[2019-08-10 08:22] VITALS: BP 109/76
[2019-08-10] MEDS: HYDROmorphone PCA 30 MG/30 ML IV PRN (08:27)
[2019-08-10] MEDS: SODIUM CHLORIDE 0.45% 1,000 ML IV SCH ×2 (08:44→13:38)
[2019-08-10] MEDS: PANTOPRAZOLE 40 MG IV IVPush SCH (08:44)
[2019-08-10] MEDS ORDERED: HYDROmorphone PCA 30 MG/30 ML IV PRN ×2 (10:30)
[2019-08-10 13:02] VITALS: BP 116/82
[2019-08-10] MEDS: KETOROLAC 30 MG/1 ML IVPush PRN ×2 (13:16→19:47)
[2019-08-10] MEDS: FENTANYL REMOVE PATCH NOTE XX SCH (16:45)
[2019-08-10] MEDS: FENTANYL 25 MCG PATCH TD SCH (17:20)
[2019-08-10] MEDS: FENTANYL 100 MCG PATCH TD SCH (17:20)
[2019-08-10] MEDS: ENOXAPARIN 40 MG/0.4 ML SQ SCH (17:21)
[2019-08-10] MEDS: FILTER, DISP 1.2 MICRON FOR TPN/PVN IV PRN (17:21)
[2019-08-10] MEDS ORDERED: FAT EMUL IV SCH (18:00)
[2019-08-10] MEDS ORDERED: [UNRECOGNIZED DRUG - OTHER] IV SCH (18:00)
[2019-08-10] MEDS ORDERED: SMOF TPN IV SCH (18:00)
[2019-08-10] MEDS ORDERED: AMINO ACID 10% IV SCH (18:00)
[2019-08-10] MEDS ORDERED: DEXTROSE 70% IV SCH (18:00)
[2019-08-10 19:29] VITALS: BP 115/78
[2019-08-10] MEDS: NYSTATIN 500,000 UNITS/5 ML UDC PO PRN (20:10)
[2019-08-11] MEDS: DIPHENHYDRAMINE 50 MG/ML, 1ML IVPush PRN ×3 (02:02→23:46)
[2019-08-11 02:19] VITALS: BP 123/86
[2019-08-11] MEDS: KETOROLAC 30 MG/1 ML IVPush PRN ×3 (03:22→17:16)
[2019-08-11] MEDS: SODIUM CHLORIDE 0.45% 1,000 ML IV SCH ×2 (06:28→15:35)
[2019-08-11 06:38] LABS: CHLORIDE 99 mmol/L (98-107)
[2019-08-11 06:48] LABS: ALANINE AMINOTRANSFERASE 35 U/L (12-78); ALBUMIN 1.9 g/dL (3.4-5.0); ALKALINE PHOSPHATASE 440 U/L (45-117); ANION GAP 7 mmol/L (5-15); BILIRUBIN,TOTAL 0.9 mg/dL (0.2-1.0); CALCIUM 8.5 mg/dL (8.5-10.1); CREATININE 0.38 mg/dL (0.55-1.02); PREALBUMIN 14.6 mg/dL (20.0-40.0); TOTAL PROTEIN 6.8 g/dL (6.4-8.2); TRIGLYCERIDES 189 mg/dL (50-200)
[2019-08-11] MEDS: INSULIN LISPRO 100 UNITS/ML, PEN MEDIUM DOSE SS SQ-INSULIN SCH (07:14)
[2019-08-11 08:32] LABS: MEAN CORPUSCULAR HEMOGLOBIN 30.8 pg (27.0-34.8); MEAN CORPUSCULAR VOLUME 90.4 fL (80-100); MEAN PLATELET VOLUME 8.6 fL (7.4-10.4); PLATELET COUNT 443 x10^3/uL (130-400); RED BLOOD COUNT 3.05 x10^6/uL (3.82-5.3); RED CELL DISTRIBUTION WIDTH 14.3 % (9.6-15.2)
[2019-08-11 08:50] LABS: BASOPHILS # (AUTO) 0.01 x10^3/uL (0-0.1); BASOPHILS % (AUTO) 0 % (0-1); EOSINOPHILS # (AUTO) 0.07 x10^3/uL (0-0.4); EOSINOPHILS % (AUTO) 1 % (1-7); LYMPHOCYTES # (AUTO) 0.49 x10^3/uL (1-3.4); LYMPHOCYTES % (AUTO) 4 % (22-44); MD SCAN; MONOCYTES # (AUTO) 0.67 x10^3/uL (0.2-0.8); MONOCYTES % (AUTO) 5 % (2-9); NEUTROPHILS # (AUTO) 12.14 x10^3/uL (1.8-6.8); NEUTROPHILS % (AUTO) 91 % (42-75)
[2019-08-11 10:16] VITALS: BP 124/82
[2019-08-11] MEDS: PANTOPRAZOLE 40 MG IV IVPush SCH (10:18)
[2019-08-11] MEDS: CEFTRIAXONE PMX 2GM/50ML 50 ML IV SCH (12:03)
[2019-08-11 12:43] LABS: MICROSCOPIC INDICATED
[2019-08-11 12:44] LABS: MICROSCOPIC AUTO
[2019-08-11] MEDS: METRONIDAZOLE PMX 500MG/100ML 100 ML IV SCH ×2 (12:46→20:58)
[2019-08-11 14:05] VITALS: BP 122/79
[2019-08-11] MEDS: ENOXAPARIN 40 MG/0.4 ML SQ SCH (16:59)
[2019-08-11] MEDS: NYSTATIN 500,000 UNITS/5 ML UDC PO PRN ×2 (17:00→23:47)
[2019-08-11] MEDS ORDERED: DEXTROSE 70% IV SCH (17:00)
[2019-08-11] MEDS ORDERED: FAT EMUL IV SCH (17:00)
[2019-08-11] MEDS ORDERED: SMOF TPN IV SCH (17:00)
[2019-08-11] MEDS ORDERED: AMINO ACID 10% IV SCH (17:00)
[2019-08-11] MEDS ORDERED: [UNRECOGNIZED DRUG - OTHER] IV SCH (17:00)
[2019-08-11 19:07] VITALS: BP 118/85
[2019-08-12] MEDS: DIPHENHYDRAMINE 50 MG/ML, 1ML IVPush PRN ×4 (01:56→21:58)
[2019-08-12 02:05] VITALS: BP 122/90
[2019-08-12] MEDS: KETOROLAC 30 MG/1 ML IVPush PRN ×2 (03:20→09:06)
[2019-08-12] MEDS: METRONIDAZOLE PMX 500MG/100ML 100 ML IV SCH ×3 (04:30→20:29)
[2019-08-12 06:50] LABS: ANION GAP 7 mmol/L (5-15); CALCIUM 8.6 mg/dL (8.5-10.1); CHLORIDE 99 mmol/L (98-107); CREATININE 0.44 mg/dL (0.55-1.02)
[2019-08-12] MEDS: INSULIN LISPRO 100 UNITS/ML, PEN MEDIUM DOSE SS SQ-INSULIN SCH (07:30)
[2019-08-12 07:56] VITALS: BP 120/80
[2019-08-12] MEDS: PANTOPRAZOLE 40 MG IV IVPush SCH (09:06)
[2019-08-12] MEDS: CEFTRIAXONE PMX 2GM/50ML 50 ML IV SCH (10:59)
[2019-08-12 11:56] LABS: BASOPHILS # (AUTO) 0.04 x10^3/uL (0-0.1); BASOPHILS % (AUTO) 0 % (0-1); EOSINOPHILS # (AUTO) 0.06 x10^3/uL (0-0.4); EOSINOPHILS % (AUTO) 0 % (1-7); LYMPHOCYTES # (AUTO) 0.58 x10^3/uL (1-3.4); LYMPHOCYTES % (AUTO) 4 % (22-44); MD NO; MEAN CORPUSCULAR HEMOGLOBIN 30.7 pg (27.0-34.8); MEAN CORPUSCULAR HGB CONC 33.7 g/dL (32.4-35.8); MEAN CORPUSCULAR VOLUME 91.3 fL (80-100); MONOCYTES % (AUTO) 5 % (2-9); NEUTROPHILS # (AUTO) 11.81 x10^3/uL (1.8-6.8); NEUTROPHILS % (AUTO) 90 % (42-75); PLATELET COUNT 474 x10^3/uL (130-400); RED BLOOD COUNT 3.08 x10^6/uL (3.82-5.3); RED CELL DISTRIBUTION WIDTH 14.2 % (9.6-15.2)
[2019-08-12 14:33] VITALS: BP 117/84
[2019-08-12] MEDS ORDERED: OXYcodone 5 MG/5 ML ORAL.SOL UDC PO PRN (15:00)
[2019-08-12] MEDS ORDERED: AMINO ACID 10% IV SCH (17:00)
[2019-08-12] MEDS ORDERED: DEXTROSE 70% IV SCH (17:00)
[2019-08-12] MEDS ORDERED: SMOF TPN IV SCH (17:00)
[2019-08-12] MEDS ORDERED: FAT EMUL IV SCH (17:00)
[2019-08-12] MEDS ORDERED: [UNRECOGNIZED DRUG - OTHER] IV SCH (17:00)
[2019-08-12] MEDS: FILTER, DISP 1.2 MICRON FOR TPN/PVN IV PRN (17:25)
[2019-08-12] MEDS: ENOXAPARIN 40 MG/0.4 ML SQ SCH (17:25)
[2019-08-12] MEDS ORDERED: IBUPROFEN 200 MG TABLET ONE (18:26)
[2019-08-12] MEDS: IBUPROFEN 200 MG TABLET PO PRN (18:33)
[2019-08-12 18:54] VITALS: BP 130/90
[2019-08-13] MEDS: IBUPROFEN 200 MG TABLET PO PRN ×2 (00:55→18:09)
[2019-08-13] MEDS: DIPHENHYDRAMINE 50 MG/ML, 1ML IVPush PRN ×4 (00:55→23:22)
[2019-08-13 01:58] VITALS: BP 125/82
[2019-08-13] MEDS: METRONIDAZOLE PMX 500MG/100ML 100 ML IV SCH ×3 (04:49→20:39)
[2019-08-13 05:25] LABS: ANION GAP 7 mmol/L (5-15); CALCIUM 8.8 mg/dL (8.5-10.1); CHLORIDE 103 mmol/L (98-107); CREATININE 0.43 mg/dL (0.55-1.02)
[2019-08-13 05:48] LABS: BASOPHILS % (AUTO) 0 % (0-1); EOSINOPHILS % (AUTO) 1 % (1-7); LYMPHOCYTES # (AUTO) 0.56 x10^3/uL (1-3.4); LYMPHOCYTES % (AUTO) 5 % (22-44); MEAN CORPUSCULAR HEMOGLOBIN 30.2 pg (27.0-34.8); MEAN CORPUSCULAR HGB CONC 33.3 g/dL (32.4-35.8); MEAN CORPUSCULAR VOLUME 90.8 fL (80-100); MEAN PLATELET VOLUME 8.8 fL (7.4-10.4); MONOCYTES # (AUTO) 0.59 x10^3/uL (0.2-0.8); MONOCYTES % (AUTO) 5 % (2-9); NEUTROPHILS # (AUTO) 11.16 x10^3/uL (1.8-6.8); NEUTROPHILS % (AUTO) 90 % (42-75); PLATELET COUNT 445 x10^3/uL (130-400); RED BLOOD COUNT 3.16 x10^6/uL (3.82-5.3); RED CELL DISTRIBUTION WIDTH 14.5 % (9.6-15.2)
[2019-08-13 05:49] LABS: BASOPHILS # (AUTO) 0.02 x10^3/uL (0-0.1); EOSINOPHILS # (AUTO) 0.12 x10^3/uL (0-0.4); MD NO
[2019-08-13] MEDS: INSULIN LISPRO 100 UNITS/ML, PEN MEDIUM DOSE SS SQ-INSULIN SCH (07:14)
[2019-08-13 07:29] VITALS: BP 123/90
[2019-08-13] MEDS: ONDANSETRON 2MG/ML, 2ML IVPush SCH ×3 (10:12→22:05)
[2019-08-13] MEDS: PANTOPRAZOLE 40 MG IV IVPush SCH (10:12)
[2019-08-13] MEDS: CEFTRIAXONE PMX 2GM/50ML 50 ML IV SCH (12:27)
[2019-08-13 13:42] VITALS: BP 127/91
[2019-08-13] MEDS ORDERED: PROCHLORPERAZINE 5 MG/ML, 2ML IVPush PRN (16:00)
[2019-08-13] MEDS ORDERED: FAT EMUL IV SCH (17:00)
[2019-08-13] MEDS ORDERED: DEXTROSE 70% IV SCH (17:00)
[2019-08-13] MEDS ORDERED: SMOF TPN IV SCH (17:00)
[2019-08-13] MEDS ORDERED: AMINO ACID 10% IV SCH (17:00)
[2019-08-13] MEDS ORDERED: [UNRECOGNIZED DRUG - OTHER] IV SCH (17:00)
[2019-08-13] MEDS: ENOXAPARIN 40 MG/0.4 ML SQ SCH (17:10)
[2019-08-13] MEDS: FENTANYL REMOVE PATCH NOTE XX SCH (17:47)
[2019-08-13] MEDS: FENTANYL 100 MCG PATCH TD SCH (17:47)
[2019-08-13] MEDS: FENTANYL 25 MCG PATCH TD SCH (17:47)
[2019-08-13] MEDS: SCOPOLAMINE 1MG PATCH TD SCH (17:47)
[2019-08-13 19:06] VITALS: BP 132/88
[2019-08-14 02:21] VITALS: BP 123/82
[2019-08-14] MEDS: DIPHENHYDRAMINE 50 MG/ML, 1ML IVPush PRN ×2 (02:24→23:18)
[2019-08-14] MEDS: ONDANSETRON 2MG/ML, 2ML IVPush SCH ×4 (04:15→23:10)
[2019-08-14] MEDS: METRONIDAZOLE PMX 500MG/100ML 100 ML IV SCH ×3 (04:15→21:55)
[2019-08-14 05:21] LABS: ANION GAP 7 mmol/L (5-15); CALCIUM 8.4 mg/dL (8.5-10.1); CHLORIDE 100 mmol/L (98-107)
[2019-08-14 05:23] LABS: CREATININE 0.35 mg/dL (0.55-1.02)
[2019-08-14 05:30] LABS: BASOPHILS # (AUTO) 0.02 x10^3/uL (0-0.1); BASOPHILS % (AUTO) 0 % (0-1); EOSINOPHILS # (AUTO) 0.15 x10^3/uL (0-0.4); EOSINOPHILS % (AUTO) 2 % (1-7); LYMPHOCYTES # (AUTO) 0.66 x10^3/uL (1-3.4); LYMPHOCYTES % (AUTO) 8 % (22-44); MD NO; MEAN CORPUSCULAR HEMOGLOBIN 30.4 pg (27.0-34.8); MEAN CORPUSCULAR HGB CONC 33.8 g/dL (32.4-35.8); MEAN PLATELET VOLUME 8.4 fL (7.4-10.4); MONOCYTES # (AUTO) 0.59 x10^3/uL (0.2-0.8); MONOCYTES % (AUTO) 7 % (2-9); NEUTROPHILS # (AUTO) 7.31 x10^3/uL (1.8-6.8); NEUTROPHILS % (AUTO) 84 % (42-75); PLATELET COUNT 441 x10^3/uL (130-400); RED BLOOD COUNT 3.09 x10^6/uL (3.82-5.3); RED CELL DISTRIBUTION WIDTH 13.5 % (9.6-15.2)
[2019-08-14] MEDS: INSULIN LISPRO 100 UNITS/ML, PEN MEDIUM DOSE SS SQ-INSULIN SCH (07:23)
[2019-08-14 08:00] VITALS: BP 129/79
[2019-08-14] MEDS: PANTOPRAZOLE 40 MG IV IVPush SCH (09:59)
[2019-08-14] MEDS: IBUPROFEN 200 MG TABLET PO PRN (10:00)
[2019-08-14] MEDS: NYSTATIN 500,000 UNITS/5 ML UDC PO PRN (10:14)
[2019-08-14 12:12] VITALS: BP 117/82
[2019-08-14] MEDS: CEFTRIAXONE PMX 2GM/50ML 50 ML IV SCH (12:17)
[2019-08-14] MEDS: ENOXAPARIN 40 MG/0.4 ML SQ SCH (16:59)
[2019-08-14] MEDS: FILTER, DISP 1.2 MICRON FOR TPN/PVN IV PRN (16:59)
[2019-08-14] MEDS ORDERED: SMOF TPN IV SCH (17:00)
[2019-08-14] MEDS ORDERED: [UNRECOGNIZED DRUG - OTHER] IV SCH (17:00)
[2019-08-14] MEDS ORDERED: DEXTROSE 70% IV SCH (17:00)
[2019-08-14] MEDS ORDERED: FAT EMUL IV SCH (17:00)
[2019-08-14] MEDS ORDERED: AMINO ACID 10% IV SCH (17:00)
[2019-08-14 19:05] VITALS: BP 128/80
[2019-08-15] MEDS: DIPHENHYDRAMINE 50 MG/ML, 1ML IVPush PRN ×2 (02:09→23:09)
[2019-08-15 02:18] VITALS: BP 113/75
[2019-08-15] MEDS: ONDANSETRON 2MG/ML, 2ML IVPush SCH ×3 (04:49→18:34)
[2019-08-15] MEDS: METRONIDAZOLE PMX 500MG/100ML 100 ML IV SCH ×3 (06:13→23:09)
[2019-08-15 06:47] VITALS: BP 118/77
[2019-08-15 06:50] LABS: ANION GAP 6 mmol/L (5-15); CALCIUM 8.9 mg/dL (8.5-10.1); CHLORIDE 97 mmol/L (98-107); CREATININE 0.44 mg/dL (0.55-1.02)
[2019-08-15] MEDS: INSULIN LISPRO 100 UNITS/ML, PEN MEDIUM DOSE SS SQ-INSULIN SCH (07:30)
[2019-08-15] MEDS: PANTOPRAZOLE 40 MG IV IVPush SCH (08:55)
[2019-08-15] MEDS: IBUPROFEN 200 MG TABLET PO PRN ×2 (08:56→18:33)
[2019-08-15 12:55] VITALS: BP 113/79
[2019-08-15] MEDS: CEFTRIAXONE PMX 2GM/50ML 50 ML IV SCH (13:11)
[2019-08-15] MEDS ORDERED: AMINO ACID 10% IV SCH ×2 (17:00)
[2019-08-15] MEDS ORDERED: [UNRECOGNIZED DRUG - OTHER] IV SCH (17:00)
[2019-08-15] MEDS ORDERED: DEXTROSE 70% IV SCH ×2 (17:00)
[2019-08-15] MEDS ORDERED: SMOF TPN IV SCH ×2 (17:00)
[2019-08-15] MEDS ORDERED: FAT EMUL IV SCH ×2 (17:00)
[2019-08-15] MEDS ORDERED: [UNRECOGNIZED DRUG - OTHER] IV SCH (17:00)
[2019-08-15] MEDS: FILTER, DISP 1.2 MICRON FOR TPN/PVN IV PRN (18:34)
[2019-08-15] MEDS: ENOXAPARIN 40 MG/0.4 ML SQ SCH (18:35)
[2019-08-15 19:20] VITALS: BP 113/78
[2019-08-16] MEDS: ONDANSETRON 2MG/ML, 2ML IVPush SCH ×4 (01:15→17:52)
[2019-08-16] MEDS: DIPHENHYDRAMINE 50 MG/ML, 1ML IVPush PRN ×4 (01:24→23:05)
[2019-08-16 05:54] VITALS: BP 106/71
[2019-08-16 06:08] LABS: ANION GAP 5 mmol/L (5-15); CALCIUM 8.9 mg/dL (8.5-10.1); CHLORIDE 101 mmol/L (98-107)
[2019-08-16 06:10] LABS: CREATININE 0.44 mg/dL (0.55-1.02)
[2019-08-16] MEDS: METRONIDAZOLE PMX 500MG/100ML 100 ML IV SCH ×3 (06:44→22:33)
[2019-08-16] MEDS: INSULIN LISPRO 100 UNITS/ML, PEN MEDIUM DOSE SS SQ-INSULIN SCH (07:18)
[2019-08-16] MEDS: PANTOPRAZOLE 40 MG IV IVPush SCH (07:36)
[2019-08-16 08:20] VITALS: BP 115/80
[2019-08-16] MEDS: NYSTATIN 500,000 UNITS/5 ML UDC PO PRN (12:01)
[2019-08-16 12:37] VITALS: BP 112/78
[2019-08-16] MEDS: CEFTRIAXONE PMX 2GM/50ML 50 ML IV SCH (12:38)
[2019-08-16] MEDS: FENTANYL 25 MCG PATCH TD SCH (16:45)
[2019-08-16] MEDS: FENTANYL REMOVE PATCH NOTE XX SCH (16:45)
[2019-08-16] MEDS: FENTANYL 100 MCG PATCH TD SCH (16:45)
[2019-08-16] MEDS: ENOXAPARIN 40 MG/0.4 ML SQ SCH (16:46)
[2019-08-16] MEDS: SCOPOLAMINE 1MG PATCH TD SCH (16:46)
[2019-08-16] MEDS ORDERED: SMOF TPN IV SCH (17:00)
[2019-08-16] MEDS ORDERED: DEXTROSE 70% IV SCH (17:00)
[2019-08-16] MEDS ORDERED: AMINO ACID 10% IV SCH (17:00)
[2019-08-16] MEDS ORDERED: [UNRECOGNIZED DRUG - OTHER] IV SCH (17:00)
[2019-08-16] MEDS ORDERED: FAT EMUL IV SCH (17:00)
[2019-08-16] MEDS: FILTER, DISP 1.2 MICRON FOR TPN/PVN IV PRN (17:02)
[2019-08-16 19:59] VITALS: BP 114/74
[2019-08-17] MEDS: ONDANSETRON 2MG/ML, 2ML IVPush SCH ×5 (00:28→23:52)
[2019-08-17] MEDS: DIPHENHYDRAMINE 50 MG/ML, 1ML IVPush PRN ×4 (00:36→23:52)
[2019-08-17 02:12] VITALS: BP 115/77
[2019-08-17 06:25] LABS: ANION GAP 6 mmol/L (5-15); CALCIUM 8.7 mg/dL (8.5-10.1); CHLORIDE 102 mmol/L (98-107); CREATININE 0.45 mg/dL (0.55-1.02)
[2019-08-17 06:26] LABS: BASOPHILS # (AUTO) 0.02 x10^3/uL (0-0.1); BASOPHILS % (AUTO) 0 % (0-1); EOSINOPHILS # (AUTO) 0.22 x10^3/uL (0-0.4); EOSINOPHILS % (AUTO) 3 % (1-7); LYMPHOCYTES # (AUTO) 0.79 x10^3/uL (1-3.4); LYMPHOCYTES % (AUTO) 10 % (22-44); MD NO; MEAN CORPUSCULAR HEMOGLOBIN 30.6 pg (27.0-34.8); MEAN CORPUSCULAR HGB CONC 33.6 g/dL (32.4-35.8); MEAN CORPUSCULAR VOLUME 91.1 fL (80-100); MEAN PLATELET VOLUME 8.3 fL (7.4-10.4); MONOCYTES # (AUTO) 0.66 x10^3/uL (0.2-0.8); MONOCYTES % (AUTO) 8 % (2-9); NEUTROPHILS # (AUTO) 6.67 x10^3/uL (1.8-6.8); NEUTROPHILS % (AUTO) 80 % (42-75); PLATELET COUNT 480 x10^3/uL (130-400); RED CELL DISTRIBUTION WIDTH 14.1 % (9.6-15.2)
[2019-08-17] MEDS: METRONIDAZOLE PMX 500MG/100ML 100 ML IV SCH ×3 (06:47→22:38)
[2019-08-17] MEDS: INSULIN LISPRO 100 UNITS/ML, PEN MEDIUM DOSE SS SQ-INSULIN SCH (07:30)
[2019-08-17] MEDS: PANTOPRAZOLE 40 MG IV IVPush SCH (08:40)
[2019-08-17 08:50] VITALS: BP 116/80
[2019-08-17] MEDS: CEFTRIAXONE PMX 2GM/50ML 50 ML IV SCH (12:14)
[2019-08-17] MEDS: NYSTATIN 500,000 UNITS/5 ML UDC PO PRN (13:03)
[2019-08-17 14:41] VITALS: BP 109/77
[2019-08-17] MEDS ORDERED: AMINO ACID 10% IV SCH (17:00)
[2019-08-17] MEDS ORDERED: SMOF TPN IV SCH (17:00)
[2019-08-17] MEDS ORDERED: FAT EMUL IV SCH (17:00)
[2019-08-17] MEDS ORDERED: FILTER, DISP 1.2 MICRON FOR TPN/PVN IV PRN (17:00)
[2019-08-17] MEDS ORDERED: DEXTROSE 70% IV SCH (17:00)
[2019-08-17] MEDS ORDERED: [UNRECOGNIZED DRUG - OTHER] IV SCH (17:00)
[2019-08-17] MEDS: ENOXAPARIN 40 MG/0.4 ML SQ SCH (18:07)
[2019-08-17 19:52] VITALS: BP 113/77
[2019-08-18] MEDS: DIPHENHYDRAMINE 50 MG/ML, 1ML IVPush PRN ×3 (02:39→23:07)
[2019-08-18 02:52] VITALS: BP 111/73
[2019-08-18 03:16] LABS: ALANINE AMINOTRANSFERASE 30 U/L (12-78); ALBUMIN 2.3 g/dL (3.4-5.0); ANION GAP 5 mmol/L (5-15); CALCIUM 8.4 mg/dL (8.5-10.1); CHLORIDE 102 mmol/L (98-107)
[2019-08-18 03:21] LABS: ALKALINE PHOSPHATASE 212 U/L (45-117); BILIRUBIN,TOTAL 0.4 mg/dL (0.2-1.0); CREATININE 0.42 mg/dL (0.55-1.02); TOTAL PROTEIN 7.2 g/dL (6.4-8.2); TRIGLYCERIDES 172 mg/dL (50-200)
[2019-08-18] MEDS: METRONIDAZOLE PMX 500MG/100ML 100 ML IV SCH ×3 (06:09→23:08)
[2019-08-18] MEDS: ONDANSETRON 2MG/ML, 2ML IVPush SCH ×4 (06:09→23:07)
[2019-08-18] MEDS: INSULIN LISPRO 100 UNITS/ML, PEN MEDIUM DOSE SS SQ-INSULIN SCH (07:22)
[2019-08-18] MEDS: CEFTRIAXONE PMX 2GM/50ML 50 ML IV SCH (11:47)
[2019-08-18] MEDS: PANTOPRAZOLE 40 MG IV IVPush SCH (11:47)
[2019-08-18 11:52] VITALS: BP 109/76
[2019-08-18 15:40] VITALS: BP 108/78
[2019-08-18] MEDS: NYSTATIN 500,000 UNITS/5 ML UDC PO PRN (15:40)
[2019-08-18] MEDS ORDERED: FILTER, DISP 1.2 MICRON FOR TPN/PVN IV PRN (17:00)
[2019-08-18] MEDS ORDERED: AMINO ACID 10% IV SCH ×2 (17:00)
[2019-08-18] MEDS ORDERED: SMOF TPN IV SCH ×2 (17:00)
[2019-08-18] MEDS ORDERED: FAT EMUL IV SCH ×2 (17:00)
[2019-08-18] MEDS ORDERED: [UNRECOGNIZED DRUG - OTHER] IV SCH (17:00)
[2019-08-18] MEDS ORDERED: [UNRECOGNIZED DRUG - OTHER] IV SCH (17:00)
[2019-08-18] MEDS ORDERED: DEXTROSE 70% IV SCH ×2 (17:00)
[2019-08-18] MEDS: ENOXAPARIN 40 MG/0.4 ML SQ SCH (17:17)
[2019-08-18 19:30] VITALS: BP 109/73
[2019-08-18] MEDS ORDERED: CATHFLO-ALTEPLASE 2 MG/2 ML CATHFLUSH ONE (22:00)
[2019-08-19 01:18] VITALS: BP 102/65
[2019-08-19] MEDS: DIPHENHYDRAMINE 50 MG/ML, 1ML IVPush PRN ×4 (01:20→22:35)
[2019-08-19 05:10] LABS: ANION GAP 5 mmol/L (5-15); CALCIUM 8.6 mg/dL (8.5-10.1); CHLORIDE 100 mmol/L (98-107); CREATININE 0.39 mg/dL (0.55-1.02)
[2019-08-19] MEDS: ONDANSETRON 2MG/ML, 2ML IVPush SCH ×4 (06:17→23:05)
[2019-08-19] MEDS: METRONIDAZOLE PMX 500MG/100ML 100 ML IV SCH ×3 (06:17→23:05)
[2019-08-19] MEDS: INSULIN LISPRO 100 UNITS/ML, PEN MEDIUM DOSE SS SQ-INSULIN SCH (07:30)
[2019-08-19 07:41] VITALS: BP 111/76
[2019-08-19] MEDS: PANTOPRAZOLE 40 MG IV IVPush SCH (09:55)
[2019-08-19] MEDS: CEFTRIAXONE PMX 2GM/50ML 50 ML IV SCH (12:28)
[2019-08-19 13:07] VITALS: BP 117/87
[2019-08-19] MEDS: FENTANYL REMOVE PATCH NOTE XX SCH (16:45)
[2019-08-19] MEDS ORDERED: FENTANYL 12 MCG PATCH ONE (16:51)
[2019-08-19] MEDS ORDERED: DEXTROSE 70% IV SCH (17:00)
[2019-08-19] MEDS ORDERED: AMINO ACID 10% IV SCH (17:00)
[2019-08-19] MEDS ORDERED: SMOF TPN IV SCH (17:00)
[2019-08-19] MEDS ORDERED: [UNRECOGNIZED DRUG - OTHER] IV SCH (17:00)
[2019-08-19] MEDS ORDERED: FILTER, DISP 1.2 MICRON FOR TPN/PVN IV PRN (17:00)
[2019-08-19] MEDS ORDERED: FAT EMUL IV SCH (17:00)
[2019-08-19] MEDS ORDERED: [UNRECOGNIZED DRUG - REMARK] MC ONE (17:00)
[2019-08-19] MEDS: FENTANYL 100 MCG PATCH TD SCH (17:09)
[2019-08-19] MEDS: SCOPOLAMINE 1MG PATCH TD SCH (17:09)
[2019-08-19] MEDS: FENTANYL 25 MCG PATCH TD SCH (17:10)
[2019-08-19] MEDS: ENOXAPARIN 40 MG/0.4 ML SQ SCH (17:10)
[2019-08-19 19:07] VITALS: BP 123/85
[2019-08-20] MEDS: morphine SULFATE ORAL.CONC 20 MG/ML PO PRN (00:33)
[2019-08-20 01:15] VITALS: BP 122/89
[2019-08-20] MEDS ORDERED: KETOROLAC 30 MG/1 ML IM/IV ONE (01:30)
[2019-08-20] MEDS: ONDANSETRON 2MG/ML, 2ML IVPush SCH ×3 (06:18→17:22)
[2019-08-20] MEDS: METRONIDAZOLE PMX 500MG/100ML 100 ML IV SCH ×2 (06:18→14:23)
[2019-08-20] MEDS: INSULIN LISPRO 100 UNITS/ML, PEN MEDIUM DOSE SS SQ-INSULIN SCH (07:30)
[2019-08-20] MEDS: PANTOPRAZOLE 40 MG IV IVPush SCH (07:55)
[2019-08-20] MEDS: DIPHENHYDRAMINE 50 MG/ML, 1ML IVPush PRN ×2 (08:15→15:22)
[2019-08-20] MEDS: IBUPROFEN 200 MG TABLET PO PRN ×3 (08:39→21:43)
[2019-08-20 08:41] LABS: ANION GAP 7 mmol/L (5-15); CALCIUM 8.9 mg/dL (8.5-10.1); CHLORIDE 105 mmol/L (98-107); CREATININE 0.85 mg/dL (0.55-1.02)
[2019-08-20 08:51] VITALS: BP 116/82
[2019-08-20] MEDS: CEFTRIAXONE PMX 2GM/50ML 50 ML IV SCH (12:07)
[2019-08-20 13:33] VITALS: BP 118/70
[2019-08-20] MEDS: NYSTATIN 500,000 UNITS/5 ML UDC PO PRN (14:23)
[2019-08-20] MEDS ORDERED: [UNRECOGNIZED DRUG - OTHER] IV SCH (17:00)
[2019-08-20] MEDS ORDERED: AMINO ACID 10% IV SCH (17:00)
[2019-08-20] MEDS ORDERED: FAT EMUL IV SCH (17:00)
[2019-08-20] MEDS ORDERED: FILTER, DISP 1.2 MICRON FOR TPN/PVN IV PRN (17:00)
[2019-08-20] MEDS ORDERED: DEXTROSE 70% IV SCH (17:00)
[2019-08-20] MEDS ORDERED: SMOF TPN IV SCH (17:00)
[2019-08-20] MEDS: ENOXAPARIN 40 MG/0.4 ML SQ SCH (17:23)
[2019-08-20] MEDS: SODIUM CHLORIDE 0.45% 1,000 ML IV SCH (17:28)
[2019-08-20 18:35] VITALS: BP 110/79
[2019-08-21] MEDS: ONDANSETRON 2MG/ML, 2ML IVPush SCH ×4 (00:11→17:02)
[2019-08-21] MEDS: METRONIDAZOLE PMX 500MG/100ML 100 ML IV SCH (00:11)
[2019-08-21] MEDS: DIPHENHYDRAMINE 50 MG/ML, 1ML IVPush PRN ×5 (00:11→22:44)
[2019-08-21 00:14] VITALS: BP 121/82
[2019-08-21] MEDS: INSULIN LISPRO 100 UNITS/ML, PEN MEDIUM DOSE SS SQ-INSULIN SCH (07:30)
[2019-08-21 08:21] LABS: ANION GAP 4 mmol/L (5-15); CALCIUM 8.9 mg/dL (8.5-10.1); CHLORIDE 106 mmol/L (98-107); CREATININE 0.88 mg/dL (0.55-1.02)
[2019-08-21] MEDS ORDERED: DIPHENHYDRAMINE 50 MG/ML, 1ML IVPush ONE (09:00)
[2019-08-21] MEDS: PANTOPRAZOLE 40 MG IV IVPush SCH (09:05)
[2019-08-21 09:30] VITALS: BP 123/93
[2019-08-21] MEDS: ENOXAPARIN 40 MG/0.4 ML SQ SCH ×2 (11:59→16:59)
[2019-08-21] MEDS: IBUPROFEN 200 MG TABLET PO PRN ×2 (12:15→20:37)
[2019-08-21 14:20] VITALS: BP 132/93
[2019-08-21] MEDS ORDERED: [UNRECOGNIZED DRUG - OTHER] IV SCH (17:00)
[2019-08-21] MEDS ORDERED: DEXTROSE 70% IV SCH (17:00)
[2019-08-21] MEDS ORDERED: SMOF TPN IV SCH (17:00)
[2019-08-21] MEDS ORDERED: FAT EMUL IV SCH (17:00)
[2019-08-21] MEDS ORDERED: AMINO ACID 10% IV SCH (17:00)
[2019-08-21] MEDS: FILTER, DISP 1.2 MICRON FOR TPN/PVN IV PRN (17:02)
[2019-08-21] MEDS: SODIUM CHLORIDE 0.45% 1,000 ML IV SCH (17:03)
[2019-08-21 20:31] VITALS: BP 130/81
[2019-08-22] MEDS: ONDANSETRON 2MG/ML, 2ML IVPush SCH ×4 (00:58→17:52)
[2019-08-22] MEDS: DIPHENHYDRAMINE 50 MG/ML, 1ML IVPush PRN ×4 (00:59→22:04)
[2019-08-22 01:02] VITALS: BP 124/87
[2019-08-22] MEDS: morphine SULFATE ORAL.CONC 20 MG/ML PO PRN (02:48)
[2019-08-22] MEDS: IBUPROFEN 200 MG TABLET PO PRN ×3 (02:48→22:05)
[2019-08-22 06:16] LABS: ANION GAP 8 mmol/L (5-15); CALCIUM 8.4 mg/dL (8.5-10.1); CHLORIDE 102 mmol/L (98-107)
[2019-08-22 06:17] LABS: CREATININE 0.71 mg/dL (0.55-1.02)
[2019-08-22 06:21] LABS: BASOPHILS % (AUTO) 0 % (0-1); EOSINOPHILS # (AUTO) 0.23 x10^3/uL (0-0.4); EOSINOPHILS % (AUTO) 2 % (1-7); LYMPHOCYTES # (AUTO) 0.42 x10^3/uL (1-3.4); LYMPHOCYTES % (AUTO) 3 % (22-44); MD NO; MEAN CORPUSCULAR HEMOGLOBIN 30.5 pg (27.0-34.8); MEAN CORPUSCULAR HGB CONC 33.6 g/dL (32.4-35.8); MEAN CORPUSCULAR VOLUME 90.8 fL (80-100); MEAN PLATELET VOLUME 8.4 fL (7.4-10.4); MONOCYTES # (AUTO) 0.74 x10^3/uL (0.2-0.8); MONOCYTES % (AUTO) 6 % (2-9); NEUTROPHILS # (AUTO) 12.17 x10^3/uL (1.8-6.8); NEUTROPHILS % (AUTO) 90 % (42-75); PLATELET COUNT 342 x10^3/uL (130-400); RED BLOOD COUNT 2.69 x10^6/uL (3.82-5.3)
[2019-08-22 07:08] VITALS: BP 118/75
[2019-08-22] MEDS: INSULIN LISPRO 100 UNITS/ML, PEN MEDIUM DOSE SS SQ-INSULIN SCH (07:30)
[2019-08-22] MEDS: PANTOPRAZOLE 40 MG IV IVPush SCH (09:35)
[2019-08-22 12:32] VITALS: BP 126/89
[2019-08-22] MEDS: ENOXAPARIN 40 MG/0.4 ML SQ SCH (16:06)
[2019-08-22] MEDS: SCOPOLAMINE 1MG PATCH TD SCH (16:06)
[2019-08-22] MEDS: FENTANYL REMOVE PATCH NOTE XX SCH (16:45)
[2019-08-22] MEDS: FENTANYL 25 MCG PATCH TD SCH (16:51)
[2019-08-22] MEDS: FENTANYL 100 MCG PATCH TD SCH (16:51)
[2019-08-22] MEDS: FILTER, DISP 1.2 MICRON FOR TPN/PVN IV PRN (16:51)
[2019-08-22] MEDS ORDERED: AMINO ACID 10% IV SCH (17:00)
[2019-08-22] MEDS ORDERED: FAT EMUL IV SCH (17:00)
[2019-08-22] MEDS ORDERED: SMOF TPN IV SCH (17:00)
[2019-08-22] MEDS ORDERED: [UNRECOGNIZED DRUG - OTHER] IV SCH (17:00)
[2019-08-22] MEDS ORDERED: DEXTROSE 70% IV SCH (17:00)
[2019-08-22 18:08] VITALS: BP 119/79
[2019-08-23] MEDS: ONDANSETRON 2MG/ML, 2ML IVPush SCH ×4 (00:57→17:57)
[2019-08-23] MEDS: DIPHENHYDRAMINE 50 MG/ML, 1ML IVPush PRN ×4 (00:57→22:51)
[2019-08-23 03:32] VITALS: BP 124/85
[2019-08-23 04:28] LABS: ANION GAP 6 mmol/L (5-15); CALCIUM 8.3 mg/dL (8.5-10.1); CHLORIDE 100 mmol/L (98-107); CREATININE 0.81 mg/dL (0.55-1.02)
[2019-08-23] MEDS: IBUPROFEN 200 MG TABLET PO PRN (04:33)
[2019-08-23] MEDS: INSULIN LISPRO 100 UNITS/ML, PEN MEDIUM DOSE SS SQ-INSULIN SCH (07:30)
[2019-08-23] MEDS: PANTOPRAZOLE 40 MG IV IVPush SCH (07:49)
[2019-08-23 08:11] VITALS: BP 119/81
[2019-08-23] MEDS: NYSTATIN 500,000 UNITS/5 ML UDC PO PRN (11:33)
[2019-08-23 12:35] VITALS: BP 126/86
[2019-08-23] MEDS ORDERED: SMOF TPN IV SCH (16:00)
[2019-08-23] MEDS ORDERED: [UNRECOGNIZED DRUG - OTHER] IV SCH (16:00)
[2019-08-23] MEDS ORDERED: DEXTROSE 70% IV SCH (16:00)
[2019-08-23] MEDS ORDERED: FAT EMUL IV SCH (16:00)
[2019-08-23] MEDS ORDERED: AMINO ACID 10% IV SCH (16:00)
[2019-08-23] MEDS: ENOXAPARIN 40 MG/0.4 ML SQ SCH (16:07)
[2019-08-23 18:14] VITALS: BP 125/83
[2019-08-23] MEDS: morphine SULFATE ORAL.CONC 20 MG/ML PO PRN (22:48)
[2019-08-23] MEDS ORDERED: CATHFLO-ALTEPLASE 2 MG/2 ML CATHFLUSH ONE (23:00)
[2019-08-24] MEDS: DIPHENHYDRAMINE 50 MG/ML, 1ML IVPush PRN ×5 (00:48→23:35)
[2019-08-24] MEDS: ONDANSETRON 2MG/ML, 2ML IVPush SCH ×4 (00:48→17:50)
[2019-08-24 00:56] VITALS: BP 128/87
[2019-08-24 04:27] LABS: ANION GAP 7 mmol/L (5-15); CALCIUM 8.3 mg/dL (8.5-10.1); CHLORIDE 101 mmol/L (98-107)
[2019-08-24 04:28] LABS: CREATININE 0.79 mg/dL (0.55-1.02)
[2019-08-24] MEDS: INSULIN LISPRO 100 UNITS/ML, PEN MEDIUM DOSE SS SQ-INSULIN SCH (07:30)
[2019-08-24 07:39] VITALS: BP 121/81
[2019-08-24] MEDS: PANTOPRAZOLE 40 MG IV IVPush SCH (10:38)
[2019-08-24 11:35] LABS: BASOPHILS # (AUTO) 0.01 x10^3/uL (0-0.1); BASOPHILS % (AUTO) 0 % (0-1); EOSINOPHILS # (AUTO) 0.19 x10^3/uL (0-0.4); EOSINOPHILS % (AUTO) 2 % (1-7); HEMOGRAM NOTE RECHECKED; LYMPHOCYTES # (AUTO) 0.49 x10^3/uL (1-3.4); LYMPHOCYTES % (AUTO) 5 % (22-44); MD NO; MEAN CORPUSCULAR HEMOGLOBIN 30.5 pg (27.0-34.8); MEAN CORPUSCULAR HGB CONC 33.5 g/dL (32.4-35.8); MEAN CORPUSCULAR VOLUME 91.1 fL (80-100); MEAN PLATELET VOLUME 8.6 fL (7.4-10.4); MONOCYTES # (AUTO) 0.84 x10^3/uL (0.2-0.8); MONOCYTES % (AUTO) 8 % (2-9); NEUTROPHILS # (AUTO) 8.61 x10^3/uL (1.8-6.8); NEUTROPHILS % (AUTO) 85 % (42-75); PLATELET COUNT 324 x10^3/uL (130-400); RED BLOOD COUNT 2.63 x10^6/uL (3.82-5.3); RED CELL DISTRIBUTION WIDTH 14.4 % (9.6-15.2)
[2019-08-24 12:12] VITALS: BP 124/84
[2019-08-24] MEDS ORDERED: FAT EMUL IV SCH (17:00)
[2019-08-24] MEDS ORDERED: DEXTROSE 70% IV SCH (17:00)
[2019-08-24] MEDS ORDERED: SMOF TPN IV SCH (17:00)
[2019-08-24] MEDS ORDERED: [UNRECOGNIZED DRUG - OTHER] IV SCH (17:00)
[2019-08-24] MEDS ORDERED: AMINO ACID 10% IV SCH (17:00)
[2019-08-24] MEDS: ENOXAPARIN 40 MG/0.4 ML SQ SCH (17:50)
[2019-08-24] MEDS: FILTER, DISP 1.2 MICRON FOR TPN/PVN IV PRN (17:50)
[2019-08-24] MEDS: NYSTATIN 500,000 UNITS/5 ML UDC PO PRN (18:15)
[2019-08-24 19:41] VITALS: BP 113/80
[2019-08-25] MEDS: ONDANSETRON 2MG/ML, 2ML IVPush SCH ×4 (00:45→17:31)
[2019-08-25] MEDS: DIPHENHYDRAMINE 50 MG/ML, 1ML IVPush PRN ×4 (03:00→22:29)
[2019-08-25] MEDS: IBUPROFEN 200 MG TABLET PO PRN (03:05)
[2019-08-25 03:11] VITALS: BP 142/93
[2019-08-25 06:36] LABS: CHLORIDE 100 mmol/L (98-107)
[2019-08-25 06:49] LABS: ALANINE AMINOTRANSFERASE 21 U/L (12-78); ALKALINE PHOSPHATASE 230 U/L (45-117); ANION GAP 7 mmol/L (5-15); BILIRUBIN,TOTAL 0.7 mg/dL (0.2-1.0); CALCIUM 8.4 mg/dL (8.5-10.1); CREATININE 0.84 mg/dL (0.55-1.02); PREALBUMIN 11.5 mg/dL (20.0-40.0); TOTAL PROTEIN 6.9 g/dL (6.4-8.2)
[2019-08-25 07:34] VITALS: BP 119/79
[2019-08-25] MEDS: PANTOPRAZOLE 40 MG IV IVPush SCH (08:41)
[2019-08-25] MEDS: INSULIN LISPRO 100 UNITS/ML, PEN MEDIUM DOSE SS SQ-INSULIN SCH (08:44)
[2019-08-25 09:09] LABS: MEAN CORPUSCULAR HEMOGLOBIN 30.6 pg (27.0-34.8); MEAN CORPUSCULAR HGB CONC 33.7 g/dL (32.4-35.8); MEAN CORPUSCULAR VOLUME 90.8 fL (80-100); MEAN PLATELET VOLUME 8.4 fL (7.4-10.4); PLATELET COUNT 309 x10^3/uL (130-400); RED BLOOD COUNT 2.53 x10^6/uL (3.82-5.3); RED CELL DISTRIBUTION WIDTH 14.1 % (9.6-15.2)
[2019-08-25 09:44] LABS: BASOPHILS # (AUTO) 0.01 x10^3/uL (0-0.1); BASOPHILS % (AUTO) 0 % (0-1); EOSINOPHILS # (AUTO) 0.17 x10^3/uL (0-0.4); EOSINOPHILS % (AUTO) 2 % (1-7); LYMPHOCYTES # (AUTO) 0.52 x10^3/uL (1-3.4); LYMPHOCYTES % (AUTO) 5 % (22-44); MD SCAN; MONOCYTES # (AUTO) 0.92 x10^3/uL (0.2-0.8); MONOCYTES % (AUTO) 8 % (2-9); NEUTROPHILS # (AUTO) 9.96 x10^3/uL (1.8-6.8); NEUTROPHILS % (AUTO) 86 % (42-75)
[2019-08-25 14:24] VITALS: BP 117/81
[2019-08-25] MEDS: SCOPOLAMINE 1MG PATCH TD SCH (16:17)
[2019-08-25] MEDS: NYSTATIN 500,000 UNITS/5 ML UDC PO PRN (16:17)
[2019-08-25] MEDS ORDERED: DEXTROSE 70% IV SCH (17:00)
[2019-08-25] MEDS ORDERED: [UNRECOGNIZED DRUG - OTHER] IV SCH (17:00)
[2019-08-25] MEDS ORDERED: SMOF TPN IV SCH (17:00)
[2019-08-25] MEDS ORDERED: AMINO ACID 10% IV SCH (17:00)
[2019-08-25] MEDS ORDERED: FAT EMUL IV SCH (17:00)
[2019-08-25] MEDS ORDERED: FENTANYL 50 MCG PATCH ONE (17:10)
[2019-08-25] MEDS: FENTANYL REMOVE PATCH NOTE XX SCH (17:31)
[2019-08-25] MEDS: FILTER, DISP 1.2 MICRON FOR TPN/PVN IV PRN (17:31)
[2019-08-25] MEDS: ENOXAPARIN 40 MG/0.4 ML SQ SCH (17:32)
[2019-08-25] MEDS: FENTANYL 100 MCG PATCH TD SCH (17:32)
[2019-08-25] MEDS: FENTANYL 25 MCG PATCH TD SCH (17:32)
[2019-08-25 18:42] VITALS: BP 105/72
[2019-08-26] MEDS: ONDANSETRON 2MG/ML, 2ML IVPush SCH ×4 (00:50→18:06)
[2019-08-26] MEDS: DIPHENHYDRAMINE 50 MG/ML, 1ML IVPush PRN ×3 (00:56→16:18)
[2019-08-26] MEDS: IBUPROFEN 200 MG TABLET PO PRN (00:59)
[2019-08-26 01:02] VITALS: BP 141/83
[2019-08-26] MEDS: SODIUM CHLORIDE 0.45% 1,000 ML IV SCH (06:11)
[2019-08-26 06:21] LABS: MEAN CORPUSCULAR HEMOGLOBIN 30.3 pg (27.0-34.8); MEAN CORPUSCULAR HGB CONC 33.6 g/dL (32.4-35.8); MEAN CORPUSCULAR VOLUME 90.1 fL (80-100); MEAN PLATELET VOLUME 8.5 fL (7.4-10.4); PLATELET COUNT 305 x10^3/uL (130-400); RED BLOOD COUNT 2.41 x10^6/uL (3.82-5.3); RED CELL DISTRIBUTION WIDTH 13.9 % (9.6-15.2)
[2019-08-26 06:24] LABS: ANION GAP 5 mmol/L (5-15); CALCIUM 8.6 mg/dL (8.5-10.1); CHLORIDE 101 mmol/L (98-107)
[2019-08-26 06:25] LABS: CREATININE 0.81 mg/dL (0.55-1.02)
[2019-08-26 06:40] LABS: BASOPHILS % (AUTO) 0 % (0-1); EOSINOPHILS # (AUTO) 0.25 x10^3/uL (0-0.4); EOSINOPHILS % (AUTO) 3 % (1-7); LYMPHOCYTES # (AUTO) 0.49 x10^3/uL (1-3.4); LYMPHOCYTES % (AUTO) 5 % (22-44); MD SCAN; MONOCYTES # (AUTO) 0.98 x10^3/uL (0.2-0.8); MONOCYTES % (AUTO) 10 % (2-9); NEUTROPHILS # (AUTO) 8.44 x10^3/uL (1.8-6.8); NEUTROPHILS % (AUTO) 83 % (42-75)
[2019-08-26] MEDS: INSULIN LISPRO 100 UNITS/ML, PEN MEDIUM DOSE SS SQ-INSULIN SCH (07:30)
[2019-08-26 08:00] VITALS: BP 107/71
[2019-08-26] MEDS: PANTOPRAZOLE 40 MG IV IVPush SCH (09:23)
[2019-08-26 14:45] VITALS: BP 120/79
[2019-08-26] MEDS ORDERED: SMOF TPN IV SCH (17:00)
[2019-08-26] MEDS ORDERED: DEXTROSE 70% IV SCH (17:00)
[2019-08-26] MEDS ORDERED: FAT EMUL IV SCH (17:00)
[2019-08-26] MEDS ORDERED: AMINO ACID 10% IV SCH (17:00)
[2019-08-26] MEDS ORDERED: [UNRECOGNIZED DRUG - OTHER] IV SCH (17:00)
[2019-08-26] MEDS ORDERED: CALCIUM CARBONATE 500 MG TAB.CHEW PO PRN (18:00)
[2019-08-26] MEDS: ENOXAPARIN 40 MG/0.4 ML SQ SCH (18:05)
[2019-08-26] MEDS: FILTER, DISP 1.2 MICRON FOR TPN/PVN IV PRN (18:06)
[2019-08-26 18:48] VITALS: BP 109/69
[2019-08-26] MEDS ORDERED: DIPHENHYDRAMINE 25 MG CAPSULE PO PRN (20:00)
[2019-08-26] MEDS: FAMOTIDINE 20 MG TABLET PO SCH (20:28)
[2019-08-26] MEDS: NYSTATIN 500,000 UNITS/5 ML UDC PO PRN (20:32)
[2019-08-27] VITALS (10 sets, daily range): BP systolic 98–133; BP diastolic 67–92
[2019-08-27] MEDS: ONDANSETRON ODT 4 MG PO SCH ×4 (00:02→17:01)
[2019-08-27] MEDS: DIPHENHYDRAMINE 25 MG CAPSULE PO PRN ×2 (00:03→22:59)
[2019-08-27] MEDS: IBUPROFEN 200 MG TABLET PO PRN ×2 (01:31→23:00)
[2019-08-27] MEDS: PANTOPRAZOLE 40MG TABLET PO SCH (06:33)
[2019-08-27 06:46] LABS: MEAN CORPUSCULAR HEMOGLOBIN 30.3 pg (27.0-34.8); MEAN CORPUSCULAR HGB CONC 33.6 g/dL (32.4-35.8); MEAN PLATELET VOLUME 8.6 fL (7.4-10.4); PLATELET COUNT 315 x10^3/uL (130-400); RED BLOOD COUNT 2.38 x10^6/uL (3.82-5.3); RED CELL DISTRIBUTION WIDTH 14.1 % (9.6-15.2)
[2019-08-27 06:55] LABS: ANION GAP 6 mmol/L (5-15); CALCIUM 8.5 mg/dL (8.5-10.1); CHLORIDE 100 mmol/L (98-107); CREATININE 0.75 mg/dL (0.55-1.02)
[2019-08-27] MEDS: INSULIN LISPRO 100 UNITS/ML, PEN MEDIUM DOSE SS SQ-INSULIN SCH (07:14)
[2019-08-27 07:22] LABS: BASOPHILS # (AUTO) 0.01 x10^3/uL (0-0.1); BASOPHILS % (AUTO) 0 % (0-1); EOSINOPHILS # (AUTO) 0.22 x10^3/uL (0-0.4); EOSINOPHILS % (AUTO) 2 % (1-7); LYMPHOCYTES # (AUTO) 0.49 x10^3/uL (1-3.4); LYMPHOCYTES % (AUTO) 5 % (22-44); MD SCAN; MONOCYTES # (AUTO) 0.77 x10^3/uL (0.2-0.8); MONOCYTES % (AUTO) 8 % (2-9); NEUTROPHILS # (AUTO) 8.14 x10^3/uL (1.8-6.8); NEUTROPHILS % (AUTO) 85 % (42-75)
[2019-08-27] MEDS: NYSTATIN 500,000 UNITS/5 ML UDC PO PRN (07:35)
[2019-08-27] MEDS: FAMOTIDINE 20 MG TABLET PO SCH ×2 (07:35→20:41)
[2019-08-27] MEDS ORDERED: ACETAMINOPHEN 325 MG TABLET PO ONE (09:00)
[2019-08-27] MEDS ORDERED: DIPHENHYDRAMINE 12.5MG/5ML, 10ML UDC PO ONE (09:00)
[2019-08-27] MEDS ORDERED: AMINO ACID 10% IV SCH (17:00)
[2019-08-27] MEDS ORDERED: [UNRECOGNIZED DRUG - OTHER] IV SCH (17:00)
[2019-08-27] MEDS ORDERED: DEXTROSE 70% IV SCH (17:00)
[2019-08-27] MEDS ORDERED: SMOF TPN IV SCH (17:00)
[2019-08-27] MEDS ORDERED: FAT EMUL IV SCH (17:00)
[2019-08-27] MEDS: ENOXAPARIN 40 MG/0.4 ML SQ SCH (17:02)
[2019-08-27] MEDS: FILTER, DISP 1.2 MICRON FOR TPN/PVN IV PRN (17:04)
[2019-08-27] MEDS: SODIUM CHLORIDE 0.45% 1,000 ML IV SCH (17:04)
[2019-08-27] MEDS ORDERED: CATHFLO-ALTEPLASE 2 MG/2 ML CATHFLUSH ONE (17:30)
[2019-08-27] MEDS: morphine SULFATE ORAL.CONC 20 MG/ML PO PRN (20:40)
[2019-08-28] MEDS: ONDANSETRON ODT 4 MG PO SCH ×4 (00:29→18:41)
[2019-08-28 00:32] VITALS: BP 132/95
[2019-08-28 05:59] LABS: BASOPHILS % (AUTO) 0 % (0-1); EOSINOPHILS # (AUTO) 0.13 x10^3/uL (0-0.4); EOSINOPHILS % (AUTO) 1 % (1-7); LYMPHOCYTES # (AUTO) 0.65 x10^3/uL (1-3.4); LYMPHOCYTES % (AUTO) 6 % (22-44); MD NO; MEAN CORPUSCULAR HEMOGLOBIN 29.3 pg (27.0-34.8); MEAN CORPUSCULAR HGB CONC 33.2 g/dL (32.4-35.8); MEAN CORPUSCULAR VOLUME 88.3 fL (80-100); MEAN PLATELET VOLUME 8.6 fL (7.4-10.4); MONOCYTES % (AUTO) 9 % (2-9); NEUTROPHILS # (AUTO) 8.67 x10^3/uL (1.8-6.8); NEUTROPHILS % (AUTO) 84 % (42-75); PLATELET COUNT 287 x10^3/uL (130-400); RED BLOOD COUNT 3.53 x10^6/uL (3.82-5.3); RED CELL DISTRIBUTION WIDTH 15.8 % (9.6-15.2)
[2019-08-28 06:10] LABS: ANION GAP 5 mmol/L (5-15); CALCIUM 8.6 mg/dL (8.5-10.1); CHLORIDE 100 mmol/L (98-107)
[2019-08-28 06:11] LABS: CREATININE 0.73 mg/dL (0.55-1.02)
[2019-08-28] MEDS: PANTOPRAZOLE 40MG TABLET PO SCH (06:11)
[2019-08-28] MEDS: INSULIN LISPRO 100 UNITS/ML, PEN MEDIUM DOSE SS SQ-INSULIN SCH (07:25)
[2019-08-28] MEDS ORDERED: DIPHENHYDRAMINE 12.5MG/5ML, 10ML UDC PO PRN (08:30)
[2019-08-28] MEDS: FAMOTIDINE 20 MG TABLET PO SCH ×2 (08:55→20:39)
[2019-08-28 09:07] VITALS: BP 128/88
[2019-08-28] MEDS: METOCLOPRAMIDE 10MG TABLET PO SCH ×2 (13:07→20:39)
[2019-08-28 13:47] VITALS: BP 130/76
[2019-08-28] MEDS: SCOPOLAMINE 1MG PATCH TD SCH (16:12)
[2019-08-28] MEDS: NYSTATIN 500,000 UNITS/5 ML UDC PO PRN (16:12)
[2019-08-28] MEDS: FENTANYL REMOVE PATCH NOTE XX SCH (16:45)
[2019-08-28] MEDS ORDERED: [UNRECOGNIZED DRUG - OTHER] IV SCH (17:00)
[2019-08-28] MEDS ORDERED: DEXTROSE 70% IV SCH (17:00)
[2019-08-28] MEDS ORDERED: FAT EMUL IV SCH (17:00)
[2019-08-28] MEDS ORDERED: AMINO ACID 10% IV SCH (17:00)
[2019-08-28] MEDS ORDERED: OXYcodone IR 5MG TABLET PO PRN (17:00)
[2019-08-28] MEDS ORDERED: SMOF TPN IV SCH (17:00)
[2019-08-28] MEDS: FENTANYL 100 MCG PATCH TD SCH (17:33)
[2019-08-28] MEDS: FENTANYL 25 MCG PATCH TD SCH (17:33)
[2019-08-28] MEDS: FILTER, DISP 1.2 MICRON FOR TPN/PVN IV PRN (17:33)
[2019-08-28] MEDS: ENOXAPARIN 40 MG/0.4 ML SQ SCH (17:34)
[2019-08-28 19:12] VITALS: BP 124/86
[2019-08-28] MEDS: DIPHENHYDRAMINE 25 MG CAPSULE PO PRN (22:05)
[2019-08-28] MEDS: IBUPROFEN 200 MG TABLET PO PRN (23:09)
[2019-08-29] MEDS: ONDANSETRON ODT 4 MG PO SCH ×4 (01:02→17:05)
[2019-08-29 01:04] VITALS: BP 124/65
[2019-08-29] MEDS: METOCLOPRAMIDE 10MG TABLET PO SCH ×3 (03:27→15:21)
[2019-08-29] MEDS: PANTOPRAZOLE 40MG TABLET PO SCH (05:47)
[2019-08-29 06:17] LABS: BASOPHILS % (AUTO) 0 % (0-1); EOSINOPHILS # (AUTO) 0.12 x10^3/uL (0-0.4); EOSINOPHILS % (AUTO) 1 % (1-7); LYMPHOCYTES # (AUTO) 0.58 x10^3/uL (1-3.4); LYMPHOCYTES % (AUTO) 6 % (22-44); MD NO; MEAN CORPUSCULAR HEMOGLOBIN 29.2 pg (27.0-34.8); MEAN CORPUSCULAR HGB CONC 32.9 g/dL (32.4-35.8); MEAN CORPUSCULAR VOLUME 88.8 fL (80-100); MEAN PLATELET VOLUME 8.5 fL (7.4-10.4); MONOCYTES # (AUTO) 0.88 x10^3/uL (0.2-0.8); MONOCYTES % (AUTO) 9 % (2-9); NEUTROPHILS # (AUTO) 8.36 x10^3/uL (1.8-6.8); NEUTROPHILS % (AUTO) 84 % (42-75); PLATELET COUNT 319 x10^3/uL (130-400); RED BLOOD COUNT 3.55 x10^6/uL (3.82-5.3); RED CELL DISTRIBUTION WIDTH 15.5 % (9.6-15.2)
[2019-08-29 07:05] VITALS: BP 113/80
[2019-08-29] MEDS: INSULIN LISPRO 100 UNITS/ML, PEN MEDIUM DOSE SS SQ-INSULIN SCH (07:44)
[2019-08-29] MEDS: FAMOTIDINE 20 MG TABLET PO SCH (07:44)
[2019-08-29] MEDS ORDERED: CIPR500T3 PO (10:39)
[2019-08-29] MEDS ORDERED: FAMO20TA7 PO (10:44)
[2019-08-29] MEDS ORDERED: IBUP-1902 PO (10:44)
[2019-08-29] MEDS ORDERED: CALC200T24 PO (10:44)
[2019-08-29] MEDS ORDERED: Scopolamine Transderm TD (10:44)
[2019-08-29] MEDS ORDERED: ACET325T26 PO (10:44)
[2019-08-29] MEDS ORDERED: FLUC150T PO (10:44)
[2019-08-29] MEDS ORDERED: NYST1000 PO (10:44)
[2019-08-29] MEDS ORDERED: Fentanyl Remove Patch XX (10:44)
[2019-08-29] MEDS ORDERED: METO10TA2 PO (10:44)
[2019-08-29] MEDS ORDERED: ONDA4TAB13 PO (11:49)
[2019-08-29] MEDS ORDERED: OXYC5TAB3 PO (11:49)
[2019-08-29] MEDS ORDERED: FENT1PAT78 TD (11:49)
[2019-08-29] MEDS ORDERED: FENT1PAT75 TD (11:49)
[2019-08-29 15:53] VITALS: BP 130/96
[2019-08-29] MEDS: ENOXAPARIN 40 MG/0.4 ML SQ SCH (17:06)
[2019-08-29] MEDS: DIPHENHYDRAMINE 25 MG CAPSULE PO PRN (17:06)
[2019-09-07] MEDS ORDERED: FENT1PAT77 TD (08:59)
== END 2019-08-29 17:23 | disposition home health service (06) | DRG 853 ==
LOC: ED 19:31 → EDIP 20:57 → 4EST 23:44 → 4NW 06-07 15:05 → CCU 06-18 02:53 → 4NW 06-21 12:11 → 4NE 06-23 11:13 → CCU 06-23 20:30 → 4NW 06-24 17:51 → 3N 07-08 15:26 → 3WST 07-27 14:21 → CCU 07-31 23:07 → 3WST 08-02 13:15
PROVIDERS: ADMIT Specialist; ATTEND Internal Medicine
PROC: 02HV33Z Insertion of Infusion Device into Superior Vena Cava, Percutaneous Approach (ICD-10-PCS; 2019-06-15)
PROC: B5181ZA Fluoroscopy of Superior Vena Cava using Low Osmolar Contrast, Guidance (ICD-10-PCS; 2019-06-15)
PROC: B548ZZA Ultrasonography of Superior Vena Cava, Guidance (ICD-10-PCS; 2019-06-15)
PROC: 0UT70ZZ Resection of Bilateral Fallopian Tubes, Open Approach (ICD-10-PCS; 2019-06-17)
PROC: 0UT20ZZ Resection of Bilateral Ovaries, Open Approach (ICD-10-PCS; 2019-06-17)
PROC: 0UBG0ZZ Excision of Vagina, Open Approach (ICD-10-PCS; 2019-06-17)
PROC: 0UT90ZZ Resection of Uterus, Open Approach (ICD-10-PCS; 2019-06-17)
PROC: 0DBN0ZZ Excision of Sigmoid Colon, Open Approach (ICD-10-PCS; 2019-06-17)
PROC: 0TBB0ZZ Excision of Bladder, Open Approach (ICD-10-PCS; 2019-06-17)
PROC: 0T180ZC Bypass Bilateral Ureters to Ileocutaneous, Open Approach (ICD-10-PCS; 2019-06-17)
PROC: 0DTJ0ZZ Resection of Appendix, Open Approach (ICD-10-PCS; 2019-06-17)
PROC: 0UTC0ZZ Resection of Cervix, Open Approach (ICD-10-PCS; principal; 2019-06-17 12:00)
PROC: 0D9670Z Drainage of Stomach with Drainage Device, Via Natural or Artificial Opening (ICD-10-PCS; 2019-06-18)
PROC: 0T903ZZ Drainage of Right Kidney, Percutaneous Approach (ICD-10-PCS; 2019-06-23)
DX: A41.9 Sepsis, unspecified organism (principal); E43 Unspecified severe protein-calorie malnutrition; R65.21 Severe sepsis with septic shock; N17.0 Acute kidney failure with tubular necrosis; K83.1 Obstruction of bile duct; N13.30 Unspecified hydronephrosis; I82.622 Acute embolism and thrombosis of deep veins of left upper extremity; D62 Acute posthemorrhagic anemia; E87.1 Hypo-osmolality and hyponatremia; E87.2 Acidosis; G93.40 Encephalopathy, unspecified; K56.7 Ileus, unspecified; E83.42 Hypomagnesemia; E87.6 Hypokalemia; F41.9 Anxiety disorder, unspecified; B95.61 Methicillin susceptible Staphylococcus aureus infection as the cause of diseases classified elsewhere; R73.9 Hyperglycemia, unspecified; C53.9 Malignant neoplasm of cervix uteri, unspecified; K52.9 Noninfective gastroenteritis and colitis, unspecified; Z79.01 Long term (current) use of anticoagulants; Z83.3 Family history of diabetes mellitus; Z82.49 Family history of ischemic heart disease and other diseases of the circulatory system; Z87.440 Personal history of urinary (tract) infections
CPT/HCPCS: 36415; 36573; 36600; 47000; 49440; 50431; 50432; 71045; 74018; 74160; 74176; 74177; 74246; 74270; 74425; 76942; 80048; 80053; 80076; 81001; 81025; 82040; 82103; 82140; 82330; 82390; 82436; 82533; 82570; 82803; 82947; 82962; 83516; 83540; 83550; 83605; 83690; 83735; 84100; 84132; 84133; 84134; 84145; 84295; 84300; 84439; 84443; 84478; 84484; 84703; 85014; 85018; 85025; 85610; 85730; 86038; 86039; 86704; 86709; 86803; 86850; 86860; 86870; 86880; 86900; 86902; 86922; 86923; 87040; 87070; 87077; 87081; 87086; 87106; 87186; 87205; 87340; 88304; 88305; 88307; 88309; 88313; 88331; 88342; 93005; 93308; 93321; 93325; 93970; 94640; 94667; 94668; 96374; 96375; 99156; 99157; B4087; C1729; G0378; J0295; J0610; J0696; J1100; J1170; J1644; J1650; J1815; J1885; J2250; J2270; J2354; J2405; J2543; J2550; J2704; J2710; J2997; J3010; J3360; J3475; J3480; J7613; P9045; P9047; Q0162; Q9966; Q9967; C1751; C1765; C1769; C9113; J0330; J0780; J1200; J1450; J1720; J2060; J2310; J2370; J2765; J3420; J3490; J7030; J7040; J7050; J7120; P9016; P9017; Q0163; Q9968

== ENCOUNTER 2019-10-18 09:38 | Inpatient (IN) | payer MEDICAID ==
[~2019-10-18] VITALS: Ht 144.8 cm; Wt 42.6 kg
[~2019-10-18 09:38] MED LIST changes: +ACET325T26 PO; +CALC200T24 PO; +CIPR500T3 PO; +FAMO20TA7 PO; +FENT1PAT75 TD; +FENT1PAT77 TD; +FENT1PAT78 TD; +FLUC150T PO; +Fentanyl Remove Patch XX; +IBUP-1902 PO; +METO10TA2 PO; +NYST1000 PO; +ONDA4TAB13 PO; +OXYC5TAB3 PO; +Scopolamine Transderm TD
[2019-10-18] MEDS ORDERED: SODIUM CHLORIDE 0.9% 1,000 ML IV ONE (10:12)
[2019-10-18] MEDS ORDERED: ONDANSETRON 2MG/ML, 2ML IVPush ONE ×2 (10:30→13:30)
[2019-10-18 10:48] LABS: MEAN CORPUSCULAR HEMOGLOBIN 28.4 pg (27.0-34.8); MEAN CORPUSCULAR HGB CONC 33.5 g/dL (32.4-35.8); MEAN PLATELET VOLUME 8.9 fL (7.4-10.4); PLATELET COUNT 418 x10^3/uL (130-400); RED BLOOD COUNT 3.65 x10^6/uL (3.82-5.3); RED CELL DISTRIBUTION WIDTH 14.6 % (9.6-15.2)
[2019-10-18] MEDS ORDERED: ONDANSETRON 2MG/ML, 2ML ONE ×2 (10:51→13:54)
[2019-10-18] MEDS ORDERED: HYDROmorphone 1 MG/ML, 1ML INJ ONE (10:51)
[2019-10-18] MEDS ORDERED: HYDROmorphone 1 MG/ML, 1ML INJ IV ONE (11:00)
[2019-10-18 11:03] LABS: BASOPHILS # (AUTO) 0.05 x10^3/uL (0-0.1); BASOPHILS % (AUTO) 0 % (0-1); EOSINOPHILS # (AUTO) 0.04 x10^3/uL (0-0.4); EOSINOPHILS % (AUTO) 0 % (1-7); LYMPHOCYTES # (AUTO) 0.88 x10^3/uL (1-3.4); LYMPHOCYTES % (AUTO) 6 % (22-44); MD SCAN; MONOCYTES # (AUTO) 0.75 x10^3/uL (0.2-0.8); MONOCYTES % (AUTO) 5 % (2-9); NEUTROPHILS # (AUTO) 14.05 x10^3/uL (1.8-6.8); NEUTROPHILS % (AUTO) 89 % (42-75)
[2019-10-18] MEDS ORDERED: METO5TAB57 PO (11:13)
--- NOTE | 2019-10-18 11:25 | NUR ---
CAME TO THE ED FOR"JUST DEHYDRATED, I'M LETHARGIC, I CAN BARELY WALK" BEGAN MON. "WENT TO THE DR ON SUN THEY SAID TO DRINK WATER EVERY HOUR". PT IN BED IN GOEN WITH CONT CARDIAC MONIOTR, SPO2, BP Q 30 MIN. PT PAIN 9/10 FULL BODY PAIN.DILAUDID GIVEN PAIN IS NOW 4/10. CALL LIGHT IN REACH
[2019-10-18 11:34] LABS: ALANINE AMINOTRANSFERASE 96 U/L (12-78); ANION GAP 24 mmol/L (5-15); CHLORIDE 74 mmol/L (98-107)
[2019-10-18 11:36] LABS: BILIRUBIN,TOTAL 2.1 mg/dL (0.2-1.0); TOTAL PROTEIN 10.9 g/dL (6.4-8.2)
[2019-10-18 11:54] LABS: ALKALINE PHOSPHATASE 963 U/L (45-117)
--- NOTE | 2019-10-18 12:09 | NUR ---
LUNCH BREAK NOTE: PT RESTING IN BED IN NAD. CRITICAL RESULTS GIVEN TO DR. RIVERA. AWAITIG FURTHER ORDERS. 3 P'S ADDRESSED. PAIN IS 3/10. VSS.
[2019-10-18] MEDS ORDERED: SODIUM CHLORIDE FLUSH 10ML SYR IVF PRN (13:00)
[2019-10-18] MEDS ORDERED: SODIUM ZIRCONIUM CYCLOSILICATE 5 GM PO ONE (13:30)
[2019-10-18] MEDS ORDERED: HYDROmorphone 2 MG/ML, 1ML ONE (13:54)
[2019-10-18 13:58] LABS: ANION GAP 19 mmol/L (5-15); CALCIUM 8.5 mg/dL (8.5-10.1); CHLORIDE 83 mmol/L (98-107)
[2019-10-18] MEDS: HYDROmorphone 2 MG/ML, 1ML IVPush PRN ×3 (14:09→23:02)
[2019-10-18] MEDS ORDERED: NYST1000 PO (14:29)
[2019-10-18] MEDS ORDERED: AMOX-367 PO (14:29)
[2019-10-18] MEDS ORDERED: IBUP1TAB11 PO (14:30)
[2019-10-18] MEDS ORDERED: PHARMACY MAY ADJ FOR RENAL FX MC PRN (15:30)
[2019-10-18] MEDS ORDERED: CALCIUM CARBONATE 500 MG TAB.CHEW PO PRN (15:30)
[2019-10-18] MEDS: SODIUM BICARB 8.4%,50ML SYR. 50 MEQ in SODIUM CHLORIDE 0.45% 1,000 ML IV SCH (15:32)
[2019-10-18] MEDS ORDERED: PROMETHAZINE 25 MG/ML, 1ML IM PRN (16:00)
[2019-10-18] MEDS ORDERED: morphine SULFATE 10 MG/ML, 1ML IVPush PRN (16:00)
[2019-10-18] MEDS ORDERED: CATHFLO-ALTEPLASE 2 MG/2 ML CATHFLUSH PRN (16:00)
[2019-10-18] MEDS: MEROPENEM 500 MG in SODIUM CHLORIDE 0.9% 100 ML IV SCH (16:31)
[2019-10-18 16:51] LABS: CLOSTRIDIUM DIFFICILE ANTIGEN NEGATIVE; CLOSTRIDIUM DIFFICILE TOXIN NEGATIVE (Negative)
[2019-10-18 18:40] LABS: ANION GAP 16 mmol/L (5-15); CALCIUM 8.9 mg/dL (8.5-10.1); CHLORIDE 81 mmol/L (98-107)
[2019-10-18] MEDS: HEPARIN 5,000 UNITS/ML, 1ML SQ SCH (21:05)
[2019-10-18 22:22] LABS: MICROSCOPIC INDICATED
[2019-10-18 22:34] LABS: ANION GAP 17 mmol/L (5-15); CALCIUM 8.3 mg/dL (8.5-10.1); CHLORIDE 84 mmol/L (98-107); CREATININE 9.81 mg/dL (0.55-1.02)
[2019-10-19] MEDS: SODIUM BICARB 8.4%,50ML SYR. 50 MEQ in SODIUM CHLORIDE 0.45% 1,000 ML IV SCH (02:05)
[2019-10-19 02:35] LABS: ANION GAP 15 mmol/L (5-15); CALCIUM 7.4 mg/dL (8.5-10.1); CHLORIDE 84 mmol/L (98-107); CREATININE 7.86 mg/dL (0.55-1.02)
[2019-10-19] MEDS: MEROPENEM 500 MG in SODIUM CHLORIDE 0.9% 100 ML IV SCH ×2 (04:14→15:25)
[2019-10-19 04:30] VITALS: BP 107/58
[2019-10-19] MEDS: HYDROmorphone 2 MG/ML, 1ML IVPush PRN ×5 (04:58→21:38)
[2019-10-19] MEDS ORDERED: POTASSIUM CHLORIDE PMX 100 ML IV ONE (07:30)
[2019-10-19 07:40] LABS: ALANINE AMINOTRANSFERASE 53 U/L (12-78); ALBUMIN 2.1 g/dL (3.4-5.0); ANION GAP 16 mmol/L (5-15); CALCIUM 8.4 mg/dL (8.5-10.1); CHLORIDE 87 mmol/L (98-107); CREATININE 7.87 mg/dL (0.55-1.02)
[2019-10-19 07:42] LABS: ALKALINE PHOSPHATASE 551 U/L (45-117); BILIRUBIN,TOTAL 3.5 mg/dL (0.2-1.0); TOTAL PROTEIN 7.6 g/dL (6.4-8.2)
[2019-10-19 07:45] LABS: MEAN CORPUSCULAR HEMOGLOBIN 28.6 pg (27.0-34.8); MEAN CORPUSCULAR HGB CONC 33.2 g/dL (32.4-35.8); MEAN PLATELET VOLUME 8.5 fL (7.4-10.4); PLATELET COUNT 269 x10^3/uL (130-400); RED BLOOD COUNT 2.55 x10^6/uL (3.82-5.3); RED CELL DISTRIBUTION WIDTH 14.4 % (9.6-15.2)
[2019-10-19 08:02] LABS: MD YES
[2019-10-19 08:08] LABS: LYMPH#(MANUAL) 0.16 x10^3/uL (1-3.4); LYMPHS% (MANUAL) 2 % (22-44); METAMYELOCYTES# (MANUAL) 0.24 x10^3/uL (0-0); METAMYELOCYTES% (MANUAL) 3 % (0-1); MONOS% (MANUAL) 5 % (2-9); ROULEAUX 1+; SEGS% (MANUAL) 90 % (42-75)
[2019-10-19 08:09] LABS: <PLATELET ESTIMATE> ADEQUATE; <PLT MORPHOLOGY> NORMAL PLT MORPH
[2019-10-19] MEDS: NYSTATIN 500,000 UNITS/5 ML UDC PO SCH (09:13)
[2019-10-19] MEDS: SODIUM CHLORIDE 0.9% 1,000 ML IV SCH ×2 (09:13→21:38)
[2019-10-19] MEDS: HEPARIN 5,000 UNITS/ML, 1ML SQ SCH ×2 (09:14→21:38)
[2019-10-19 16:03] VITALS: BP 94/61
[2019-10-19 19:54] VITALS: BP 92/58
[2019-10-19] MEDS ORDERED: CATHFLO-ALTEPLASE 2 MG/2 ML CATHFLUSH ONE (23:00)
[2019-10-19 23:10] VITALS: BP 157/88
[2019-10-20] VITALS (13 sets, daily range): BP systolic 95–117; BP diastolic 57–72
[2019-10-20] MEDS: HYDROmorphone 2 MG/ML, 1ML IVPush PRN ×6 (00:50→21:36)
[2019-10-20] MEDS: ACETAMINOPHEN 325 MG TABLET PO PRN ×2 (00:50→17:21)
[2019-10-20] MEDS: MEROPENEM 500 MG in SODIUM CHLORIDE 0.9% 100 ML IV SCH ×2 (03:35→15:34)
[2019-10-20 04:07] LABS: ALBUMIN 1.7 g/dL (3.4-5.0); ANION GAP 11 mmol/L (5-15); CHLORIDE 98 mmol/L (98-107)
[2019-10-20 04:15] LABS: % IRON SATURATION 56 % (20-55); ALANINE AMINOTRANSFERASE 32 U/L (12-78); ALKALINE PHOSPHATASE 341 U/L (45-117); BILIRUBIN,TOTAL 3.9 mg/dL (0.2-1.0); IRON LEVEL 83 mcg/dL (50-170); TOTAL IRON BINDING CAPACITY 149 mcg/dL (250-450); TOTAL PROTEIN 6.4 g/dL (6.4-8.2)
[2019-10-20 04:30] LABS: CREATINE KINASE, TOTAL < 7 U/L (26-192)
[2019-10-20 04:43] LABS: MEAN CORPUSCULAR HEMOGLOBIN 28.7 pg (27.0-34.8); MEAN CORPUSCULAR HGB CONC 33.3 g/dL (32.4-35.8); MEAN PLATELET VOLUME 8.6 fL (7.4-10.4); PLATELET COUNT 249 x10^3/uL (130-400); RED BLOOD COUNT 1.95 x10^6/uL (3.82-5.3); RED CELL DISTRIBUTION WIDTH 14.3 % (9.6-15.2)
[2019-10-20 04:47] LABS: MD YES
[2019-10-20 04:51] LABS: BAND#(MANUAL) 0.32 x10^3/uL; BANDS%(MANUAL) 4 % (0-7); LYMPH#(MANUAL) 0.79 x10^3/uL (1-3.4); LYMPHS% (MANUAL) 10 % (22-44); METAMYELOCYTES# (MANUAL) 0.55 x10^3/uL (0-0); METAMYELOCYTES% (MANUAL) 7 % (0-1); MONOS#(MANUAL) 0.08 x10^3/uL (0.3-2.7); MONOS% (MANUAL) 1 % (2-9); MYELOCYTES# (MANUAL) 0.08 x10^3/uL (0-0); MYELOCYTES% (MANUAL) 1 % (0-0); SEG#(MANUAL) 6.08 x10^3/uL (1.8-6.8); SEGS% (MANUAL) 77 % (42-75)
[2019-10-20 04:52] LABS: <PLATELET ESTIMATE> ADEQUATE; ROULEAUX 1+
[2019-10-20 04:53] LABS: <PLT MORPHOLOGY> NORMAL PLT MORPH
[2019-10-20] MEDS: POTASSIUM CHLORIDE 20 MEQ TAB.ER.PRT PO SCH ×2 (08:00→19:55)
[2019-10-20] MEDS: NYSTATIN 500,000 UNITS/5 ML UDC PO SCH (09:46)
[2019-10-20] MEDS: HEPARIN 5,000 UNITS/ML, 1ML SQ SCH (09:47)
[2019-10-20] MEDS ORDERED: MAGNESIUM SULFATE PMX 2GM/50ML 50 ML IV ONE (11:00)
[2019-10-20] MEDS ORDERED: SODIUM CHLORIDE 0.9%, 500ML IVBOLUS ONE (17:30)
[2019-10-21 01:21] VITALS: BP 134/74
[2019-10-21] MEDS: ACETAMINOPHEN 325 MG TABLET PO PRN ×2 (01:22→19:45)
[2019-10-21] MEDS: HYDROmorphone 2 MG/ML, 1ML IVPush PRN ×7 (01:23→21:40)
[2019-10-21] MEDS: ONDANSETRON 2MG/ML, 2ML IVPush PRN (01:29)
[2019-10-21] MEDS: MEROPENEM 500 MG in SODIUM CHLORIDE 0.9% 100 ML IV SCH ×2 (03:24→15:21)
[2019-10-21 06:42] LABS: MEAN CORPUSCULAR HEMOGLOBIN 28.9 pg (27.0-34.8); MEAN CORPUSCULAR HGB CONC 33.3 g/dL (32.4-35.8); MEAN PLATELET VOLUME 7.6 fL (7.4-10.4); PLATELET COUNT 320 x10^3/uL (130-400); RED BLOOD COUNT 3.04 x10^6/uL (3.82-5.3); RED CELL DISTRIBUTION WIDTH 14.7 % (9.6-15.2)
[2019-10-21 07:00] LABS: ALANINE AMINOTRANSFERASE 32 U/L (12-78); ALBUMIN 1.8 g/dL (3.4-5.0); ANION GAP 11 mmol/L (5-15); CALCIUM 8.6 mg/dL (8.5-10.1); CHLORIDE 104 mmol/L (98-107)
[2019-10-21 07:07] LABS: ALKALINE PHOSPHATASE 340 U/L (45-117); BILIRUBIN,TOTAL 3.9 mg/dL (0.2-1.0); TOTAL PROTEIN 6.8 g/dL (6.4-8.2)
[2019-10-21 07:11] LABS: MD YES
[2019-10-21 07:13] LABS: BAND#(MANUAL) 0.57 x10^3/uL; BANDS%(MANUAL) 4 % (0-7); EOS#(MANUAL) 0.14 x10^3/uL (0.0-0.4); EOS% (MANUAL) 1 % (1-7); LYMPH#(MANUAL) 0.57 x10^3/uL (1-3.4); LYMPHS% (MANUAL) 4 % (22-44); METAMYELOCYTES# (MANUAL) 0.72 x10^3/uL (0-0); METAMYELOCYTES% (MANUAL) 5 % (0-1); MONOS#(MANUAL) 0.14 x10^3/uL (0.3-2.7); MONOS% (MANUAL) 1 % (2-9); MYELOCYTES# (MANUAL) 0.14 x10^3/uL (0-0); MYELOCYTES% (MANUAL) 1 % (0-0); SEG#(MANUAL) 12.01 x10^3/uL (1.8-6.8); SEGS% (MANUAL) 84 % (42-75)
[2019-10-21 07:14] LABS: <PLATELET ESTIMATE> ADEQUATE; <PLT MORPHOLOGY> NORMAL PLT MORPH; ROULEAUX 1+
[2019-10-21 07:20] LABS: C-REACTIVE PROTEIN, QUANT > 19.00 mg/dL (0.02-0.49)
[2019-10-21 07:24] LABS: HCT (SEDRATE) 26.4 % (34.6-47.8)
[2019-10-21 07:44] VITALS: BP 90/58
[2019-10-21] MEDS ORDERED: MAGNESIUM SULFATE PMX 2GM/50ML 50 ML IV ONE (08:00)
[2019-10-21] MEDS: POTASSIUM CHLORIDE 20 MEQ TAB.ER.PRT PO SCH ×2 (08:19→17:36)
[2019-10-21] MEDS: NYSTATIN 500,000 UNITS/5 ML UDC PO SCH (08:19)
[2019-10-21 12:31] VITALS: BP 90/51
[2019-10-21 12:32] VITALS: BP 112/61
[2019-10-21 19:33] VITALS: BP 116/67
[2019-10-22] MEDS: HYDROmorphone 2 MG/ML, 1ML IVPush PRN ×7 (01:59→22:14)
[2019-10-22 02:08] VITALS: BP 101/70
[2019-10-22] MEDS: MEROPENEM 500 MG in SODIUM CHLORIDE 0.9% 100 ML IV SCH ×2 (03:12→15:50)
[2019-10-22 05:56] LABS: HCT (SEDRATE) 24.1 % (34.6-47.8)
[2019-10-22 05:57] LABS: MEAN CORPUSCULAR HEMOGLOBIN 29.1 pg (27.0-34.8); MEAN CORPUSCULAR HGB CONC 33.7 g/dL (32.4-35.8); MEAN PLATELET VOLUME 7.9 fL (7.4-10.4); PLATELET COUNT 310 x10^3/uL (130-400); RED BLOOD COUNT 2.75 x10^6/uL (3.82-5.3); RED CELL DISTRIBUTION WIDTH 15.2 % (9.6-15.2)
[2019-10-22 06:14] LABS: CHLORIDE 104 mmol/L (98-107)
[2019-10-22 06:25] LABS: MD YES
[2019-10-22 06:26] LABS: BAND#(MANUAL) 0.61 x10^3/uL; BANDS%(MANUAL) 4 % (0-7); EOS% (MANUAL) 2 % (1-7); LYMPH#(MANUAL) 0.46 x10^3/uL (1-3.4); LYMPHS% (MANUAL) 3 % (22-44); METAMYELOCYTES# (MANUAL) 0.15 x10^3/uL (0-0); METAMYELOCYTES% (MANUAL) 1 % (0-1)
[2019-10-22 06:27] LABS: MONOS#(MANUAL) 0.61 x10^3/uL (0.3-2.7); MONOS% (MANUAL) 4 % (2-9); SEG#(MANUAL) 13.07 x10^3/uL (1.8-6.8); SEGS% (MANUAL) 86 % (42-75)
[2019-10-22 06:28] LABS: <PLATELET ESTIMATE> ADEQUATE; <PLT MORPHOLOGY> NORMAL PLT MORPH; <RBC MORPHOLOGY> NORMAL
[2019-10-22 07:04] LABS: ALANINE AMINOTRANSFERASE 29 U/L (12-78); ALBUMIN 1.8 g/dL (3.4-5.0); ALKALINE PHOSPHATASE 338 U/L (45-117); ANION GAP 11 mmol/L (5-15); BILIRUBIN,TOTAL 1.6 mg/dL (0.2-1.0); CALCIUM 8.7 mg/dL (8.5-10.1); CREATININE 1.52 mg/dL (0.55-1.02); TOTAL PROTEIN 6.8 g/dL (6.4-8.2)
[2019-10-22 07:29] VITALS: BP 96/61
[2019-10-22 07:59] LABS: SEDIMENTATION RATE > 120 mm/hr (0-20)
[2019-10-22] MEDS: VANCOMYCIN PER PHARMACY MC SCH (09:00)
[2019-10-22] MEDS ORDERED: POTASSIUM CHLORIDE 20 MEQ TAB.ER.PRT PO ONE ×2 (09:00→11:00)
[2019-10-22] MEDS ORDERED: PHARMACOKINETIC MONITORING MC PRN (09:30)
[2019-10-22] MEDS ORDERED: PHARMACOKINETIC CONSULTATION MC ONE (09:30)
[2019-10-22] MEDS: NYSTATIN 500,000 UNITS/5 ML UDC PO SCH (09:33)
[2019-10-22] MEDS: VANCOMYCIN 900 MG in SODIUM CHLORIDE 0.9% 100 ML IV SCH (11:16)
[2019-10-22] MEDS: LOPERAMIDE 1 MG/7.5 ML LIQUID PO SCH ×3 (11:16→22:30)
[2019-10-22 14:30] VITALS: BP 120/80
[2019-10-22 19:05] VITALS: BP 109/74
[2019-10-22] MEDS: PSYLLIUM PACKET PO SCH (19:45)
[2019-10-23] MEDS: HYDROmorphone 2 MG/ML, 1ML IVPush PRN ×7 (01:13→21:49)
[2019-10-23 01:15] VITALS: BP 100/68
[2019-10-23] MEDS: MEROPENEM 500 MG in SODIUM CHLORIDE 0.9% 100 ML IV SCH ×2 (04:07→15:37)
[2019-10-23] MEDS: LOPERAMIDE 1 MG/7.5 ML LIQUID PO SCH ×4 (06:11→21:49)
[2019-10-23 06:19] LABS: ANION GAP 8 mmol/L (5-15); CALCIUM 8.5 mg/dL (8.5-10.1); CHLORIDE 107 mmol/L (98-107); CREATININE 1.17 mg/dL (0.55-1.02)
[2019-10-23 06:24] LABS: MEAN CORPUSCULAR HEMOGLOBIN 29.2 pg (27.0-34.8); MEAN CORPUSCULAR HGB CONC 33.9 g/dL (32.4-35.8); MEAN PLATELET VOLUME 7.4 fL (7.4-10.4); PLATELET COUNT 324 x10^3/uL (130-400); RED BLOOD COUNT 2.64 x10^6/uL (3.82-5.3); RED CELL DISTRIBUTION WIDTH 14.9 % (9.6-15.2)
[2019-10-23 06:56] LABS: MD YES
[2019-10-23 06:57] LABS: BANDS%(MANUAL) 3 % (0-7); EOS#(MANUAL) 0.13 x10^3/uL (0.0-0.4); EOS% (MANUAL) 1 % (1-7); LYMPH#(MANUAL) 0.93 x10^3/uL (1-3.4); LYMPHS% (MANUAL) 7 % (22-44); METAMYELOCYTES# (MANUAL) 0.13 x10^3/uL (0-0); METAMYELOCYTES% (MANUAL) 1 % (0-1); MONOS% (MANUAL) 3 % (2-9); MYELOCYTES# (MANUAL) 0.27 x10^3/uL (0-0); MYELOCYTES% (MANUAL) 2 % (0-0); SEG#(MANUAL) 11.04 x10^3/uL (1.8-6.8); SEGS% (MANUAL) 83 % (42-75)
[2019-10-23 06:58] LABS: <PLATELET ESTIMATE> ADEQUATE; <PLT MORPHOLOGY> NORMAL PLT MORPH; <RBC MORPHOLOGY> NORMAL
[2019-10-23] MEDS: VANCOMYCIN PER PHARMACY MC SCH (08:32)
[2019-10-23] MEDS: NYSTATIN 500,000 UNITS/5 ML UDC PO SCH (08:33)
[2019-10-23] MEDS: PSYLLIUM PACKET PO SCH ×2 (08:34→20:36)
[2019-10-23 08:49] VITALS: BP 110/62
[2019-10-23] MEDS ORDERED: POTASSIUM CHLORIDE PMX 100 ML IV ONE (10:00)
[2019-10-23] MEDS: VANCOMYCIN 900 MG in SODIUM CHLORIDE 0.9% 100 ML IV SCH (11:29)
[2019-10-23] MEDS ORDERED: HYDROmorphone 1 MG/ML, 1ML INJ ONE (11:42)
[2019-10-23 13:07] VITALS: BP 111/72
[2019-10-23] MEDS: CARVEDILOL 3.125 MG TABLET PO SCH (18:06)
[2019-10-23 18:31] VITALS: BP 124/84
[2019-10-23 18:41] VITALS: BP 108/78
[2019-10-24 01:45] VITALS: BP 101/73
[2019-10-24] MEDS: HYDROmorphone 2 MG/ML, 1ML IVPush PRN ×6 (01:54→20:44)
[2019-10-24] MEDS: LOPERAMIDE 1 MG/7.5 ML LIQUID PO SCH ×4 (04:14→23:11)
[2019-10-24] MEDS: MEROPENEM 1 GM in SODIUM CHLORIDE 0.9% 100 ML IV SCH ×2 (04:42→16:42)
[2019-10-24] MEDS: CARVEDILOL 3.125 MG TABLET PO SCH ×2 (06:00→18:00)
[2019-10-24 06:02] VITALS: BP 99/72
[2019-10-24 06:43] LABS: MEAN CORPUSCULAR HEMOGLOBIN 28.5 pg (27.0-34.8); MEAN CORPUSCULAR HGB CONC 32.6 g/dL (32.4-35.8); MEAN PLATELET VOLUME 7.1 fL (7.4-10.4); PLATELET COUNT 346 x10^3/uL (130-400); RED BLOOD COUNT 2.88 x10^6/uL (3.82-5.3); RED CELL DISTRIBUTION WIDTH 14.7 % (9.6-15.2)
[2019-10-24 06:54] LABS: CHLORIDE 106 mmol/L (98-107)
[2019-10-24 07:02] LABS: ALANINE AMINOTRANSFERASE 50 U/L (12-78); ALKALINE PHOSPHATASE 424 U/L (45-117); ANION GAP 9 mmol/L (5-15); CALCIUM 8.5 mg/dL (8.5-10.1); CREATININE 0.99 mg/dL (0.55-1.02); TOTAL PROTEIN 7.4 g/dL (6.4-8.2); VANCOMYCIN,RANDOM 24.8 mcg/mL
[2019-10-24 07:09] LABS: MD YES
[2019-10-24 07:10] LABS: BAND#(MANUAL) 0.56 x10^3/uL; BANDS%(MANUAL) 4 % (0-7); EOS#(MANUAL) 0.14 x10^3/uL (0.0-0.4); EOS% (MANUAL) 1 % (1-7); LYMPH#(MANUAL) 0.28 x10^3/uL (1-3.4); LYMPHS% (MANUAL) 2 % (22-44); MONOS#(MANUAL) 0.14 x10^3/uL (0.3-2.7); MONOS% (MANUAL) 1 % (2-9); MYELOCYTES# (MANUAL) 0.14 x10^3/uL (0-0); MYELOCYTES% (MANUAL) 1 % (0-0); SEG#(MANUAL) 12.65 x10^3/uL (1.8-6.8); SEGS% (MANUAL) 91 % (42-75)
[2019-10-24 07:11] LABS: POLYCHROMASIA 1+
[2019-10-24 07:12] LABS: <PLATELET ESTIMATE> ADEQUATE; <PLT MORPHOLOGY> NORMAL PLT MORPH
[2019-10-24 07:15] VITALS: BP 107/72
[2019-10-24] MEDS ORDERED: POTASSIUM CHLORIDE PMX 100 ML IV ONE (08:30)
[2019-10-24] MEDS ORDERED: POTASSIUM CHLORIDE 20 MEQ TAB.ER.PRT PO ONE (09:00)
[2019-10-24] MEDS: VANCOMYCIN PER PHARMACY MC SCH (09:00)
[2019-10-24] MEDS ORDERED: POTASSIUM CHLORIDE 10 MEQ in SODIUM CHLORIDE 0.9% 250 ML IV ONE (09:00)
[2019-10-24] MEDS: NYSTATIN 500,000 UNITS/5 ML UDC PO SCH (09:52)
[2019-10-24] MEDS: PSYLLIUM PACKET PO SCH ×2 (09:52→20:44)
[2019-10-24] MEDS: VANCOMYCIN 900 MG in SODIUM CHLORIDE 0.9% 100 ML IV SCH (11:54)
[2019-10-24 12:37] VITALS: BP 111/76
[2019-10-24] MEDS ORDERED: MAGNESIUM SULFATE PMX 2GM/50ML 50 ML IV ONE (15:00)
[2019-10-24] MEDS ORDERED: CATHFLO-ALTEPLASE 2 MG/2 ML CATHFLUSH ONE (15:00)
[2019-10-24 17:54] VITALS: BP 101/67
[2019-10-24 20:43] VITALS: BP 114/77
[2019-10-25] MEDS: HYDROmorphone 2 MG/ML, 1ML IVPush PRN ×5 (00:40→14:29)
[2019-10-25 00:42] VITALS: BP 121/92
[2019-10-25] MEDS: ONDANSETRON 2MG/ML, 2ML IVPush PRN ×2 (00:46→20:11)
[2019-10-25] MEDS: MEROPENEM 1 GM in SODIUM CHLORIDE 0.9% 100 ML IV SCH ×2 (04:32→15:49)
[2019-10-25] MEDS: LOPERAMIDE 1 MG/7.5 ML LIQUID PO SCH ×4 (04:32→21:58)
[2019-10-25 05:06] VITALS: BP 113/79
[2019-10-25] MEDS: CARVEDILOL 3.125 MG TABLET PO SCH ×2 (05:07→18:01)
[2019-10-25 05:45] LABS: BASOPHILS # (AUTO) 0.03 x10^3/uL (0-0.1); BASOPHILS % (AUTO) 0 % (0-1); EOSINOPHILS # (AUTO) 0.26 x10^3/uL (0-0.4); EOSINOPHILS % (AUTO) 2 % (1-7); LYMPHOCYTES # (AUTO) 0.83 x10^3/uL (1-3.4); LYMPHOCYTES % (AUTO) 6 % (22-44); MD NO; MEAN CORPUSCULAR HEMOGLOBIN 29.2 pg (27.0-34.8); MEAN CORPUSCULAR HGB CONC 33.4 g/dL (32.4-35.8); MEAN PLATELET VOLUME 7.6 fL (7.4-10.4); MONOCYTES # (AUTO) 0.51 x10^3/uL (0.2-0.8); MONOCYTES % (AUTO) 4 % (2-9); NEUTROPHILS # (AUTO) 11.86 x10^3/uL (1.8-6.8); NEUTROPHILS % (AUTO) 88 % (42-75); PLATELET COUNT 352 x10^3/uL (130-400); RED BLOOD COUNT 2.77 x10^6/uL (3.82-5.3); RED CELL DISTRIBUTION WIDTH 14.5 % (9.6-15.2)
[2019-10-25 05:57] LABS: CHLORIDE 108 mmol/L (98-107)
[2019-10-25 06:05] LABS: ANION GAP 8 mmol/L (5-15); CALCIUM 8.9 mg/dL (8.5-10.1); CREATININE 0.95 mg/dL (0.55-1.02)
[2019-10-25 07:52] VITALS: BP 107/73
[2019-10-25] MEDS: VANCOMYCIN PER PHARMACY MC SCH (09:00)
[2019-10-25] MEDS: NYSTATIN 500,000 UNITS/5 ML UDC PO SCH (09:36)
[2019-10-25] MEDS: PSYLLIUM PACKET PO SCH ×2 (09:37→19:44)
[2019-10-25] MEDS: VANCOMYCIN 900 MG in SODIUM CHLORIDE 0.9% 100 ML IV SCH (11:22)
[2019-10-25 12:47] VITALS: BP 102/70
[2019-10-25] MEDS: OXYcodone IR 5MG TABLET PO PRN ×3 (15:50→23:44)
[2019-10-25 17:44] VITALS: BP 107/66
[2019-10-25 19:40] VITALS: BP 108/78
[2019-10-26] MEDS: OXYcodone IR 5MG TABLET PO PRN (04:05)
[2019-10-26] MEDS: MEROPENEM 1 GM in SODIUM CHLORIDE 0.9% 100 ML IV SCH (04:06)
[2019-10-26] MEDS: LOPERAMIDE 1 MG/7.5 ML LIQUID PO SCH (04:09)
[2019-10-26] MEDS: ONDANSETRON 2MG/ML, 2ML IVPush PRN (04:14)
[2019-10-26 04:30] VITALS: BP 111/74
[2019-10-26] MEDS: CARVEDILOL 3.125 MG TABLET PO SCH (05:31)
[2019-10-26 06:03] LABS: BASOPHILS # (AUTO) 0.04 x10^3/uL (0-0.1); BASOPHILS % (AUTO) 0 % (0-1); EOSINOPHILS # (AUTO) 0.24 x10^3/uL (0-0.4); EOSINOPHILS % (AUTO) 3 % (1-7); LYMPHOCYTES # (AUTO) 0.75 x10^3/uL (1-3.4); LYMPHOCYTES % (AUTO) 8 % (22-44); MD NO; MEAN CORPUSCULAR HGB CONC 33.5 g/dL (32.4-35.8); MEAN PLATELET VOLUME 7.1 fL (7.4-10.4); MONOCYTES % (AUTO) 4 % (2-9); NEUTROPHILS # (AUTO) 7.68 x10^3/uL (1.8-6.8); NEUTROPHILS % (AUTO) 84 % (42-75); PLATELET COUNT 415 x10^3/uL (130-400); RED BLOOD COUNT 2.89 x10^6/uL (3.82-5.3); RED CELL DISTRIBUTION WIDTH 14.1 % (9.6-15.2)
[2019-10-26 07:23] VITALS: BP 104/69
[2019-10-26] MEDS: VANCOMYCIN PER PHARMACY MC SCH (09:48)
[2019-10-26] MEDS: PSYLLIUM PACKET PO SCH (09:48)
[2019-10-26] MEDS: NYSTATIN 500,000 UNITS/5 ML UDC PO SCH (09:48)
[2019-10-26] MEDS ORDERED: SULF1TAB24 PO ×2 (11:26)
[2019-10-26] MEDS ORDERED: LOPE1LIQ PO (11:26)
[2019-10-26] MEDS ORDERED: CARV3.1212 PO (11:26)
[2019-10-26] MEDS ORDERED: PSYL3.4P8 PO ×2 (11:26)
[2019-10-27] MEDS ORDERED: VANCOMYCIN 900 MG in SODIUM CHLORIDE 0.9% 100 ML IV SCH
[2019-12-20] MEDS ORDERED: METO10TA82 PO (23:41)
== END 2019-10-26 12:50 | disposition home health service (06) | DRG 871 ==
LOC: ED 11:24 → SUATTDRO 12:51 → EDIP 12:59 → ICU 14:22 → 4NW 10-19 14:37 → 4NE 10-19 20:04 → 3WST 10-21 20:16 → DCLOUNGE 10-26 12:35
PROVIDERS: ADMIT Internal Medicine; ATTEND Hospitalist
PROC: 0T9B70Z Drainage of Bladder with Drainage Device, Via Natural or Artificial Opening (ICD-10-PCS; principal; 2019-10-18)
PROC: 30233N1 Transfusion of Nonautologous Red Blood Cells into Peripheral Vein, Percutaneous Approach (ICD-10-PCS; 2019-10-20)
DX: A41.59 Other Gram-negative sepsis (principal); E43 Unspecified severe protein-calorie malnutrition; K65.0 Generalized (acute) peritonitis; E87.1 Hypo-osmolality and hyponatremia; E87.2 Acidosis; K56.609 Unspecified intestinal obstruction, unspecified as to partial versus complete obstruction; N13.30 Unspecified hydronephrosis; N17.9 Acute kidney failure, unspecified; D63.8 Anemia in other chronic diseases classified elsewhere; E86.0 Dehydration; E87.5 Hyperkalemia; E87.6 Hypokalemia; N89.8 Other specified noninflammatory disorders of vagina; I95.9 Hypotension, unspecified; R70.0 Elevated erythrocyte sedimentation rate; R74.8 Abnormal levels of other serum enzymes; R79.82 Elevated C-reactive protein (CRP); D72.829 Elevated white blood cell count, unspecified; R03.0 Elevated blood-pressure reading, without diagnosis of hypertension; E86.9 Volume depletion, unspecified; R74.0 Nonspecific elevation of levels of transaminase and lactic acid dehydrogenase [LDH]; F41.9 Anxiety disorder, unspecified; E83.42 Hypomagnesemia; Z85.41 Personal history of malignant neoplasm of cervix uteri; Z90.49 Acquired absence of other specified parts of digestive tract; Z92.3 Personal history of irradiation; Z93.3 Colostomy status; Z93.6 Other artificial openings of urinary tract status; Z20.828 Contact with and (suspected) exposure to other viral communicable diseases
CPT/HCPCS: 36415; 36430; 71045; 74176; 76700; 80048; 80053; 80074; 80202; 81001; 82550; 82728; 83010; 83540; 83550; 83605; 83615; 83735; 84100; 84145; 84443; 85025; 85379; 85651; 86078; 86140; 86850; 86860; 86870; 86880; 86900; 86902; 86922; 86923; 87040; 87077; 87081; 87086; 87186; 87205; 87324; 87635; 93005; 96361; 96374; 96376; G0378; J1170; J1644; J2185; J2405; J2997; J3370; J3480; J3475; J7030; J7040; J7050; P9016

== ENCOUNTER 2019-10-30 17:13 | Inpatient (IN) | payer MEDICAID ==
[~2019-10-30] VITALS: Ht 144.8 cm; Wt 38.3 kg
[~2019-10-30 17:13] MED LIST changes: +CARV3.1212 PO; +IBUP1TAB11 PO; +LOPE1LIQ PO; +METO5TAB57 PO; +PSYL3.4P8 PO; +SULF1TAB24 PO
[2019-10-30] MEDS ORDERED: SODIUM CHLORIDE 0.9% 2,000 ML IV SCH (18:30)
[2019-10-30] MEDS ORDERED: morphine SULFATE ORAL.CONC 20 MG/ML PO PRN (18:30)
[2019-10-30] MEDS: LOPERAMIDE 2 MG CAPSULE PO SCH (18:38)
[2019-10-30] MEDS: ONDANSETRON 2MG/ML, 2ML IVPush PRN (18:38)
[2019-10-30 19:46] VITALS: BP 105/66
[2019-10-30] MEDS: CARVEDILOL 3.125 MG TABLET PO SCH (20:00)
[2019-10-30] MEDS ORDERED: DIPHENHYDRAMINE 25 MG CAPSULE PO PRN (20:00)
[2019-10-30] MEDS: PSYLLIUM PACKET PO SCH (21:00)
[2019-10-30] MEDS: NYSTATIN 500,000 UNITS/5 ML UDC PO SCH (21:00)
[2019-10-30] MEDS: SULFAMETH./TRIMETHOPRIM DS 800MG/160MG TABLET PO SCH (21:25)
[2019-10-30] MEDS: D5%-0.45NACL+KCL 20MEQ 1,000 ML IV SCH (21:25)
[2019-10-31] MEDS: LOPERAMIDE 2 MG CAPSULE PO SCH ×5 (00:42→23:58)
[2019-10-31 00:43] VITALS: BP 108/51
[2019-10-31] MEDS: ONDANSETRON 2MG/ML, 2ML IVPush PRN ×3 (00:43→21:18)
[2019-10-31] MEDS: CARVEDILOL 3.125 MG TABLET PO SCH ×2 (05:12→16:38)
[2019-10-31] MEDS: D5%-0.45NACL+KCL 20MEQ 1,000 ML IV SCH ×3 (05:22→22:25)
[2019-10-31 06:11] LABS: INTERNATIONAL NORMALIZED RATIO 1.2 (0.93-1.1); PROTHROMBIN TIME 12.7 Seconds (9.6-11.5)
[2019-10-31 06:14] LABS: ALANINE AMINOTRANSFERASE 114 U/L (12-78); ALBUMIN 1.9 g/dL (3.4-5.0); ANION GAP 14 mmol/L (5-15); CALCIUM 7.2 mg/dL (8.5-10.1); CHLORIDE 104 mmol/L (98-107); CREATININE 3.97 mg/dL (0.55-1.02)
[2019-10-31 06:16] LABS: ALKALINE PHOSPHATASE 503 U/L (45-117); BILIRUBIN,TOTAL 0.7 mg/dL (0.2-1.0); TOTAL PROTEIN 7.1 g/dL (6.4-8.2)
[2019-10-31] MEDS: NYSTATIN 500,000 UNITS/5 ML UDC PO SCH ×4 (06:19→21:18)
[2019-10-31 06:34] LABS: MEAN CORPUSCULAR HEMOGLOBIN 28.8 pg (27.0-34.8); MEAN CORPUSCULAR HGB CONC 33.1 g/dL (32.4-35.8); MEAN PLATELET VOLUME 7.6 fL (7.4-10.4); PLATELET COUNT 348 x10^3/uL (130-400); RED BLOOD COUNT 2.53 x10^6/uL (3.82-5.3)
[2019-10-31 06:57] LABS: BASOPHILS # (AUTO) 0.05 x10^3/uL (0-0.1); BASOPHILS % (AUTO) 1 % (0-1); EOSINOPHILS # (AUTO) 0.02 x10^3/uL (0-0.4); EOSINOPHILS % (AUTO) 0 % (1-7); LYMPHOCYTES # (AUTO) 0.54 x10^3/uL (1-3.4); LYMPHOCYTES % (AUTO) 11 % (22-44); MD SCAN; MONOCYTES # (AUTO) 0.26 x10^3/uL (0.2-0.8); MONOCYTES % (AUTO) 5 % (2-9); NEUTROPHILS # (AUTO) 4.22 x10^3/uL (1.8-6.8); NEUTROPHILS % (AUTO) 83 % (42-75)
[2019-10-31 09:08] VITALS: BP 98/62
[2019-10-31] MEDS: SULFAMETH./TRIMETHOPRIM DS 800MG/160MG TABLET PO SCH ×2 (09:14→21:19)
[2019-10-31] MEDS: PSYLLIUM PACKET PO SCH ×3 (09:14→21:19)
[2019-10-31] MEDS ORDERED: POTASSIUM CHLORIDE 40 MEQ in SODIUM CHLORIDE 0.9% 500 ML IV ONE (10:30)
[2019-10-31] MEDS ORDERED: MAGNESIUM SULFATE PMX 4GM/100M 100 ML IV ONE (10:30)
[2019-10-31] MEDS: DIPHENHYDRAMINE 50 MG/ML, 1ML IVPush PRN ×3 (11:23→23:58)
[2019-10-31] MEDS ORDERED: LIDOCAINE 1%, 20ML ONE (13:49)
[2019-10-31] MEDS ORDERED: VISIPAQUE 270 MG/ML, 50ML BOTTLE ONE (14:53)
[2019-10-31 15:01] VITALS: BP 94/60
[2019-10-31 16:55] VITALS: BP 100/67
[2019-10-31] MEDS: MORPHINE SULFATE 4 MG/ML, 1ML IVPush PRN ×2 (16:57→21:18)
[2019-10-31 19:21] VITALS: BP 105/65
[2019-11-01 01:26] VITALS: BP 112/77
[2019-11-01] MEDS: MORPHINE SULFATE 4 MG/ML, 1ML IVPush PRN ×5 (01:27→21:32)
[2019-11-01 05:17] LABS: BASOPHILS # (AUTO) 0.04 x10^3/uL (0-0.1); BASOPHILS % (AUTO) 1 % (0-1); EOSINOPHILS # (AUTO) 0.05 x10^3/uL (0-0.4); EOSINOPHILS % (AUTO) 1 % (1-7); LYMPHOCYTES # (AUTO) 0.36 x10^3/uL (1-3.4); LYMPHOCYTES % (AUTO) 6 % (22-44); MD NO; MEAN CORPUSCULAR HGB CONC 33.3 g/dL (32.4-35.8); MEAN CORPUSCULAR VOLUME 87.1 fL (80-100); MEAN PLATELET VOLUME 7.6 fL (7.4-10.4); MONOCYTES # (AUTO) 0.16 x10^3/uL (0.2-0.8); MONOCYTES % (AUTO) 3 % (2-9); NEUTROPHILS # (AUTO) 5.15 x10^3/uL (1.8-6.8); NEUTROPHILS % (AUTO) 89 % (42-75); PLATELET COUNT 377 x10^3/uL (130-400); RED BLOOD COUNT 2.69 x10^6/uL (3.82-5.3); RED CELL DISTRIBUTION WIDTH 14.3 % (9.6-15.2)
[2019-11-01 05:28] LABS: ALBUMIN 1.9 g/dL (3.4-5.0); ANION GAP 12 mmol/L (5-15); CALCIUM 7.9 mg/dL (8.5-10.1); CHLORIDE 108 mmol/L (98-107)
[2019-11-01 05:33] LABS: ALANINE AMINOTRANSFERASE 71 U/L (12-78); ALKALINE PHOSPHATASE 439 U/L (45-117); BILIRUBIN,TOTAL 0.8 mg/dL (0.2-1.0); CREATININE 2.75 mg/dL (0.55-1.02); TOTAL PROTEIN 7.5 g/dL (6.4-8.2)
[2019-11-01 05:57] VITALS: BP 102/70
[2019-11-01] MEDS: CARVEDILOL 3.125 MG TABLET PO SCH ×2 (05:58→16:50)
[2019-11-01] MEDS: LOPERAMIDE 2 MG CAPSULE PO SCH ×3 (05:59→16:44)
[2019-11-01] MEDS: ONDANSETRON 2MG/ML, 2ML IVPush PRN ×2 (05:59→13:11)
[2019-11-01] MEDS: NYSTATIN 500,000 UNITS/5 ML UDC PO SCH ×4 (05:59→21:17)
[2019-11-01] MEDS: D5%-0.45NACL+KCL 20MEQ 1,000 ML IV SCH ×3 (06:11→22:42)
[2019-11-01] MEDS: DIPHENHYDRAMINE 50 MG/ML, 1ML IVPush PRN ×4 (07:53→21:29)
[2019-11-01 09:06] VITALS: BP 107/73
[2019-11-01] MEDS: SULFAMETH./TRIMETHOPRIM DS 800MG/160MG TABLET PO SCH ×2 (09:42→21:17)
[2019-11-01] MEDS: PSYLLIUM PACKET PO SCH ×2 (09:43→16:00)
[2019-11-01 13:51] VITALS: BP 102/69
[2019-11-01 16:44] VITALS: BP 109/65
[2019-11-01] MEDS ORDERED: HYDROmorphone 2MG TABLET PO PRN (17:30)
[2019-11-01 19:29] VITALS: BP 100/75
[2019-11-02 01:28] VITALS: BP 107/76
[2019-11-02] MEDS: MORPHINE SULFATE 4 MG/ML, 1ML IVPush PRN ×6 (01:33→23:14)
[2019-11-02] MEDS: ONDANSETRON 2MG/ML, 2ML IVPush PRN ×3 (01:44→21:34)
[2019-11-02 05:30] VITALS: BP 101/73
[2019-11-02] MEDS: DIPHENHYDRAMINE 50 MG/ML, 1ML IVPush PRN ×3 (05:40→18:05)
[2019-11-02] MEDS: NYSTATIN 500,000 UNITS/5 ML UDC PO SCH ×4 (05:46→21:34)
[2019-11-02] MEDS: CARVEDILOL 3.125 MG TABLET PO SCH ×2 (05:49→18:07)
[2019-11-02] MEDS: D5%-0.45NACL+KCL 20MEQ 1,000 ML IV SCH (06:30)
[2019-11-02 08:38] VITALS: BP 99/68
[2019-11-02] MEDS ORDERED: morphine SULFATE 10 MG/ML, 1ML ONE (10:11)
[2019-11-02] MEDS: SULFAMETH./TRIMETHOPRIM DS 800MG/160MG TABLET PO SCH ×2 (10:19→21:35)
[2019-11-02 10:53] LABS: ANION GAP 6 mmol/L (5-15); CALCIUM 8.4 mg/dL (8.5-10.1); CHLORIDE 113 mmol/L (98-107); CREATININE 1.81 mg/dL (0.55-1.02)
[2019-11-02 13:54] VITALS: BP 105/72
[2019-11-02] MEDS: FLUCONAZOLE 100 MG TABLET PO SCH (14:44)
[2019-11-02] MEDS: D5%-0.45% NACL 1,000 ML IV SCH ×2 (14:47→23:21)
[2019-11-02 19:55] VITALS: BP 111/76
[2019-11-03] MEDS: DIPHENHYDRAMINE 50 MG/ML, 1ML IVPush PRN ×4 (00:34→18:44)
[2019-11-03 03:00] VITALS: BP 114/77
[2019-11-03] MEDS: MORPHINE SULFATE 4 MG/ML, 1ML IVPush PRN ×4 (04:41→22:43)
[2019-11-03] MEDS: ONDANSETRON 2MG/ML, 2ML IVPush PRN ×3 (04:41→18:44)
[2019-11-03] MEDS: NYSTATIN 500,000 UNITS/5 ML UDC PO SCH ×4 (05:43→21:46)
[2019-11-03] MEDS: CARVEDILOL 3.125 MG TABLET PO SCH ×2 (05:43→18:33)
[2019-11-03 05:48] LABS: ALBUMIN 2.1 g/dL (3.4-5.0); ANION GAP 12 mmol/L (5-15); CALCIUM 8.2 mg/dL (8.5-10.1); CHLORIDE 105 mmol/L (98-107)
[2019-11-03 05:51] LABS: BASOPHILS # (AUTO) 0.04 x10^3/uL (0-0.1); BASOPHILS % (AUTO) 1 % (0-1); EOSINOPHILS # (AUTO) 0.17 x10^3/uL (0-0.4); EOSINOPHILS % (AUTO) 4 % (1-7); LYMPHOCYTES # (AUTO) 0.46 x10^3/uL (1-3.4); LYMPHOCYTES % (AUTO) 11 % (22-44); MD NO; MEAN CORPUSCULAR HEMOGLOBIN 29.1 pg (27.0-34.8); MEAN CORPUSCULAR HGB CONC 33.2 g/dL (32.4-35.8); MEAN CORPUSCULAR VOLUME 87.8 fL (80-100); MEAN PLATELET VOLUME 7.4 fL (7.4-10.4); MONOCYTES # (AUTO) 0.21 x10^3/uL (0.2-0.8); MONOCYTES % (AUTO) 5 % (2-9); NEUTROPHILS # (AUTO) 3.17 x10^3/uL (1.8-6.8); NEUTROPHILS % (AUTO) 79 % (42-75); PLATELET COUNT 424 x10^3/uL (130-400); RED BLOOD COUNT 2.65 x10^6/uL (3.82-5.3); RED CELL DISTRIBUTION WIDTH 14.2 % (9.6-15.2)
[2019-11-03 05:52] LABS: ALANINE AMINOTRANSFERASE 61 U/L (12-78); ALKALINE PHOSPHATASE 372 U/L (45-117); BILIRUBIN,TOTAL 0.5 mg/dL (0.2-1.0); TOTAL PROTEIN 7.5 g/dL (6.4-8.2)
[2019-11-03 07:01] VITALS: BP 108/74
[2019-11-03] MEDS: SULFAMETH./TRIMETHOPRIM DS 800MG/160MG TABLET PO SCH ×2 (10:05→21:46)
[2019-11-03] MEDS: D5%-0.45% NACL 1,000 ML IV SCH ×2 (10:05→18:36)
[2019-11-03] MEDS: FLUCONAZOLE 100 MG TABLET PO SCH (10:05)
[2019-11-03 12:57] VITALS: BP 108/74
[2019-11-03 19:13] VITALS: BP 104/72
[2019-11-04] MEDS: ONDANSETRON 2MG/ML, 2ML IVPush PRN ×4 (00:53→20:41)
[2019-11-04] MEDS: DIPHENHYDRAMINE 50 MG/ML, 1ML IVPush PRN ×4 (00:53→20:41)
[2019-11-04 03:22] VITALS: BP 101/69
[2019-11-04] MEDS: MORPHINE SULFATE 4 MG/ML, 1ML IVPush PRN ×5 (03:44→23:28)
[2019-11-04] MEDS: D5%-0.45% NACL 1,000 ML IV SCH ×2 (03:44→14:09)
[2019-11-04] MEDS: NYSTATIN 500,000 UNITS/5 ML UDC PO SCH ×4 (06:36→21:19)
[2019-11-04] MEDS: CARVEDILOL 3.125 MG TABLET PO SCH ×2 (06:37→17:28)
[2019-11-04 06:57] LABS: ANION GAP 9 mmol/L (5-15); CALCIUM 7.8 mg/dL (8.5-10.1); CHLORIDE 107 mmol/L (98-107)
[2019-11-04 07:00] LABS: CREATININE 1.47 mg/dL (0.55-1.02)
[2019-11-04 07:37] VITALS: BP 106/72
[2019-11-04] MEDS: SULFAMETH./TRIMETHOPRIM DS 800MG/160MG TABLET PO SCH ×2 (08:18→21:19)
[2019-11-04] MEDS: FLUCONAZOLE 100 MG TABLET PO SCH (08:18)
[2019-11-04] MEDS ORDERED: LIDOCAINE 1%, 20ML ONE (10:17)
[2019-11-04] MEDS ORDERED: NALOXONE 1 MG/ML, 2ML ONE (10:27)
[2019-11-04] MEDS ORDERED: FENTANYL PF 100 MCG/2ML ONE (10:27)
[2019-11-04] MEDS ORDERED: FLUMAZENIL 0.1 MG/1 ML, 5ML ONE (10:27)
[2019-11-04] MEDS ORDERED: MIDAZOLAM 1 MG/ML, 5ML ONE ×2 (10:27)
[2019-11-04 13:46] VITALS: BP 97/65
[2019-11-04] MEDS: D5%-0.9% NACL 1,000 ML IV SCH (14:42)
[2019-11-04 20:49] VITALS: BP 104/71
[2019-11-05] VITALS (11 sets, daily range): BP systolic 92–126; BP diastolic 63–89
[2019-11-05] MEDS: D5%-0.9% NACL 1,000 ML IV SCH ×2 (03:22→12:00)
[2019-11-05] MEDS: DIPHENHYDRAMINE 50 MG/ML, 1ML IVPush PRN ×3 (03:27→18:05)
[2019-11-05] MEDS: ONDANSETRON 2MG/ML, 2ML IVPush PRN ×3 (03:27→18:04)
[2019-11-05 05:25] LABS: ANION GAP 7 mmol/L (5-15); BASOPHILS # (AUTO) 0.03 x10^3/uL (0-0.1); BASOPHILS % (AUTO) 1 % (0-1); CALCIUM 7.1 mg/dL (8.5-10.1); CHLORIDE 112 mmol/L (98-107); CREATININE 1.51 mg/dL (0.55-1.02); EOSINOPHILS # (AUTO) 0.14 x10^3/uL (0-0.4); EOSINOPHILS % (AUTO) 3 % (1-7); LYMPHOCYTES # (AUTO) 0.55 x10^3/uL (1-3.4); LYMPHOCYTES % (AUTO) 13 % (22-44); MD NO; MEAN CORPUSCULAR HEMOGLOBIN 28.2 pg (27.0-34.8); MEAN CORPUSCULAR HGB CONC 32.1 g/dL (32.4-35.8); MEAN CORPUSCULAR VOLUME 87.7 fL (80-100); MEAN PLATELET VOLUME 6.8 fL (7.4-10.4); MONOCYTES # (AUTO) 0.41 x10^3/uL (0.2-0.8); MONOCYTES % (AUTO) 10 % (2-9); NEUTROPHILS # (AUTO) 3.08 x10^3/uL (1.8-6.8); NEUTROPHILS % (AUTO) 73 % (42-75); PLATELET COUNT 398 x10^3/uL (130-400); RED CELL DISTRIBUTION WIDTH 14.2 % (9.6-15.2)
[2019-11-05] MEDS: NYSTATIN 500,000 UNITS/5 ML UDC PO SCH ×4 (05:38→20:40)
[2019-11-05] MEDS: CARVEDILOL 3.125 MG TABLET PO SCH ×2 (05:38→18:04)
[2019-11-05] MEDS: MORPHINE SULFATE 4 MG/ML, 1ML IVPush PRN ×3 (05:38→20:46)
[2019-11-05 06:47] LABS: BASOPHILS # (AUTO) 0.03 x10^3/uL (0-0.1); BASOPHILS % (AUTO) 1 % (0-1); EOSINOPHILS # (AUTO) 0.11 x10^3/uL (0-0.4); EOSINOPHILS % (AUTO) 3 % (1-7); LYMPHOCYTES # (AUTO) 0.52 x10^3/uL (1-3.4); LYMPHOCYTES % (AUTO) 13 % (22-44); MD NO; MEAN CORPUSCULAR VOLUME 87.7 fL (80-100); MEAN PLATELET VOLUME 6.4 fL (7.4-10.4); MONOCYTES # (AUTO) 0.38 x10^3/uL (0.2-0.8); MONOCYTES % (AUTO) 9 % (2-9); NEUTROPHILS # (AUTO) 2.98 x10^3/uL (1.8-6.8); NEUTROPHILS % (AUTO) 74 % (42-75); PLATELET COUNT 422 x10^3/uL (130-400); RED BLOOD COUNT 2.17 x10^6/uL (3.82-5.3); RED CELL DISTRIBUTION WIDTH 14.3 % (9.6-15.2)
[2019-11-05] MEDS: SULFAMETH./TRIMETHOPRIM DS 800MG/160MG TABLET PO SCH ×2 (09:46→20:40)
[2019-11-05] MEDS: FLUCONAZOLE 100 MG TABLET PO SCH (09:46)
[2019-11-06 00:20] VITALS: BP 107/73
[2019-11-06] MEDS: MORPHINE SULFATE 4 MG/ML, 1ML IVPush PRN ×2 (00:25→06:37)
[2019-11-06] MEDS: DIPHENHYDRAMINE 50 MG/ML, 1ML IVPush PRN ×4 (00:25→19:34)
[2019-11-06] MEDS: ONDANSETRON 2MG/ML, 2ML IVPush PRN ×4 (00:25→19:34)
[2019-11-06 05:55] LABS: ANION GAP 8 mmol/L (5-15); BASOPHILS # (AUTO) 0.03 x10^3/uL (0-0.1); BASOPHILS % (AUTO) 1 % (0-1); CALCIUM 7.6 mg/dL (8.5-10.1); CHLORIDE 116 mmol/L (98-107); EOSINOPHILS # (AUTO) 0.14 x10^3/uL (0-0.4); EOSINOPHILS % (AUTO) 3 % (1-7); LYMPHOCYTES # (AUTO) 0.76 x10^3/uL (1-3.4); LYMPHOCYTES % (AUTO) 18 % (22-44); MD NO; MEAN CORPUSCULAR HEMOGLOBIN 29.9 pg (27.0-34.8); MEAN CORPUSCULAR HGB CONC 33.6 g/dL (32.4-35.8); MEAN CORPUSCULAR VOLUME 88.9 fL (80-100); MEAN PLATELET VOLUME 7.1 fL (7.4-10.4); MONOCYTES # (AUTO) 0.43 x10^3/uL (0.2-0.8); MONOCYTES % (AUTO) 10 % (2-9); NEUTROPHILS # (AUTO) 2.88 x10^3/uL (1.8-6.8); NEUTROPHILS % (AUTO) 68 % (42-75); PLATELET COUNT 417 x10^3/uL (130-400); RED BLOOD COUNT 3.61 x10^6/uL (3.82-5.3); RED CELL DISTRIBUTION WIDTH 14.4 % (9.6-15.2)
[2019-11-06] MEDS: CARVEDILOL 3.125 MG TABLET PO SCH ×2 (06:00→18:12)
[2019-11-06] MEDS: NYSTATIN 500,000 UNITS/5 ML UDC PO SCH ×4 (06:00→21:11)
[2019-11-06] MEDS: D5%-0.9% NACL 1,000 ML IV SCH ×2 (06:32→18:14)
[2019-11-06 07:38] VITALS: BP 119/83
[2019-11-06] MEDS: FLUCONAZOLE 100 MG TABLET PO SCH (09:11)
[2019-11-06 13:31] VITALS: BP 133/85
[2019-11-06] MEDS ORDERED: OMNIPAQUE 350 MG/ML, 150 ML BOTTLE ONE (13:44)
[2019-11-06 19:51] VITALS: BP 131/84
[2019-11-07 00:05] VITALS: BP 125/74
[2019-11-07] MEDS: ONDANSETRON 2MG/ML, 2ML IVPush PRN ×4 (02:45→21:58)
[2019-11-07] MEDS: DIPHENHYDRAMINE 50 MG/ML, 1ML IVPush PRN ×4 (02:46→21:58)
[2019-11-07] MEDS: D5%-0.9% NACL 1,000 ML IV SCH ×3 (02:46→22:04)
[2019-11-07 05:53] LABS: BASOPHILS # (AUTO) 0.03 x10^3/uL (0-0.1); BASOPHILS % (AUTO) 1 % (0-1); EOSINOPHILS # (AUTO) 0.22 x10^3/uL (0-0.4); EOSINOPHILS % (AUTO) 5 % (1-7); LYMPHOCYTES # (AUTO) 0.81 x10^3/uL (1-3.4); LYMPHOCYTES % (AUTO) 17 % (22-44); MD NO; MEAN CORPUSCULAR HEMOGLOBIN 29.3 pg (27.0-34.8); MEAN CORPUSCULAR HGB CONC 32.8 g/dL (32.4-35.8); MEAN CORPUSCULAR VOLUME 89.2 fL (80-100); MEAN PLATELET VOLUME 6.9 fL (7.4-10.4); MONOCYTES # (AUTO) 0.38 x10^3/uL (0.2-0.8); MONOCYTES % (AUTO) 8 % (2-9); NEUTROPHILS # (AUTO) 3.27 x10^3/uL (1.8-6.8); NEUTROPHILS % (AUTO) 69 % (42-75); PLATELET COUNT 399 x10^3/uL (130-400); RED BLOOD COUNT 3.64 x10^6/uL (3.82-5.3); RED CELL DISTRIBUTION WIDTH 14.3 % (9.6-15.2)
[2019-11-07 05:59] LABS: CHLORIDE 115 mmol/L (98-107)
[2019-11-07] MEDS: CARVEDILOL 3.125 MG TABLET PO SCH ×2 (06:02→18:27)
[2019-11-07] MEDS: NYSTATIN 500,000 UNITS/5 ML UDC PO SCH ×4 (06:02→21:55)
[2019-11-07 06:14] LABS: ALANINE AMINOTRANSFERASE 31 U/L (12-78); ALBUMIN 1.9 g/dL (3.4-5.0); ALKALINE PHOSPHATASE 270 U/L (45-117); ANION GAP 10 mmol/L (5-15); BILIRUBIN,TOTAL 0.5 mg/dL (0.2-1.0); CALCIUM 6.7 mg/dL (8.5-10.1); CREATININE 1.41 mg/dL (0.55-1.02); TOTAL PROTEIN 6.6 g/dL (6.4-8.2)
[2019-11-07 07:30] VITALS: BP 143/85
[2019-11-07] MEDS: FLUCONAZOLE 100 MG TABLET PO SCH (10:10)
[2019-11-07 13:57] VITALS: BP 136/83
[2019-11-07] MEDS: POTASSIUM CHLORIDE 20 MEQ PACKET PO SCH (18:27)
[2019-11-07 19:36] VITALS: BP 154/92
[2019-11-07 19:59] VITALS: BP 153/84
[2019-11-08 02:12] VITALS: BP 164/92
[2019-11-08 04:24] VITALS: BP 145/86
[2019-11-08] MEDS: DIPHENHYDRAMINE 50 MG/ML, 1ML IVPush PRN ×4 (04:25→22:16)
[2019-11-08] MEDS: ONDANSETRON 2MG/ML, 2ML IVPush PRN ×4 (04:25→22:16)
[2019-11-08] MEDS: NYSTATIN 500,000 UNITS/5 ML UDC PO SCH ×4 (05:47→21:14)
[2019-11-08] MEDS: CARVEDILOL 3.125 MG TABLET PO SCH ×2 (05:47→16:27)
[2019-11-08] MEDS: D5%-0.9% NACL 1,000 ML IV SCH ×2 (09:21→19:47)
[2019-11-08] MEDS: FLUCONAZOLE 100 MG TABLET PO SCH (09:21)
[2019-11-08 11:17] VITALS: BP 159/95
[2019-11-08 14:37] VITALS: BP 136/84
[2019-11-08] MEDS: POTASSIUM CHLORIDE 20 MEQ PACKET PO SCH (16:28)
[2019-11-08 19:37] VITALS: BP 119/76
[2019-11-09 01:06] VITALS: BP 134/82
[2019-11-09] MEDS: ONDANSETRON 2MG/ML, 2ML IVPush PRN ×4 (04:23→23:06)
[2019-11-09] MEDS: DIPHENHYDRAMINE 50 MG/ML, 1ML IVPush PRN ×4 (04:24→23:06)
[2019-11-09 05:28] LABS: ALANINE AMINOTRANSFERASE 34 U/L (12-78); ALBUMIN 2.2 g/dL (3.4-5.0); ANION GAP 10 mmol/L (5-15); CALCIUM 6.2 mg/dL (8.5-10.1); CHLORIDE 115 mmol/L (98-107)
[2019-11-09 05:31] LABS: ALKALINE PHOSPHATASE 274 U/L (45-117); BASOPHILS # (AUTO) 0.04 x10^3/uL (0-0.1); BASOPHILS % (AUTO) 1 % (0-1); BILIRUBIN,TOTAL 0.6 mg/dL (0.2-1.0); CREATININE 1.42 mg/dL (0.55-1.02); EOSINOPHILS # (AUTO) 0.18 x10^3/uL (0-0.4); EOSINOPHILS % (AUTO) 3 % (1-7); LYMPHOCYTES # (AUTO) 0.97 x10^3/uL (1-3.4); LYMPHOCYTES % (AUTO) 17 % (22-44); MD NO; MEAN CORPUSCULAR HEMOGLOBIN 29.3 pg (27.0-34.8); MEAN CORPUSCULAR HGB CONC 33.1 g/dL (32.4-35.8); MEAN CORPUSCULAR VOLUME 88.4 fL (80-100); MEAN PLATELET VOLUME 7.1 fL (7.4-10.4); MONOCYTES # (AUTO) 0.41 x10^3/uL (0.2-0.8); MONOCYTES % (AUTO) 7 % (2-9); NEUTROPHILS # (AUTO) 4.27 x10^3/uL (1.8-6.8); NEUTROPHILS % (AUTO) 73 % (42-75); PLATELET COUNT 427 x10^3/uL (130-400); RED BLOOD COUNT 3.89 x10^6/uL (3.82-5.3); RED CELL DISTRIBUTION WIDTH 14.1 % (9.6-15.2); TOTAL PROTEIN 7.1 g/dL (6.4-8.2)
[2019-11-09] MEDS: CARVEDILOL 3.125 MG TABLET PO SCH ×2 (05:56→17:00)
[2019-11-09] MEDS: NYSTATIN 500,000 UNITS/5 ML UDC PO SCH ×4 (05:56→20:50)
[2019-11-09] MEDS: D5%-0.9% NACL 1,000 ML IV SCH ×2 (05:56→15:06)
[2019-11-09] MEDS: FLUCONAZOLE 100 MG TABLET PO SCH (09:17)
[2019-11-09 10:34] VITALS: BP 150/85
[2019-11-09 15:06] VITALS: BP 122/80
[2019-11-09] MEDS ORDERED: POTASSIUM CHLORIDE 40 MEQ in SODIUM CHLORIDE 0.9% 500 ML IV ONE (16:00)
[2019-11-09] MEDS: POTASSIUM CHLORIDE 20 MEQ PACKET PO SCH (16:10)
[2019-11-09 19:09] VITALS: BP 144/83
[2019-11-10 02:31] VITALS: BP 155/81
[2019-11-10 03:48] LABS: BASOPHILS # (AUTO) 0.03 x10^3/uL (0-0.1); BASOPHILS % (AUTO) 1 % (0-1); EOSINOPHILS # (AUTO) 0.21 x10^3/uL (0-0.4); EOSINOPHILS % (AUTO) 3 % (1-7); LYMPHOCYTES # (AUTO) 0.93 x10^3/uL (1-3.4); LYMPHOCYTES % (AUTO) 14 % (22-44); MD NO; MEAN CORPUSCULAR HGB CONC 32.7 g/dL (32.4-35.8); MEAN CORPUSCULAR VOLUME 88.7 fL (80-100); MEAN PLATELET VOLUME 7.3 fL (7.4-10.4); MONOCYTES # (AUTO) 0.58 x10^3/uL (0.2-0.8); MONOCYTES % (AUTO) 9 % (2-9); NEUTROPHILS % (AUTO) 74 % (42-75); PLATELET COUNT 374 x10^3/uL (130-400); RED BLOOD COUNT 3.97 x10^6/uL (3.82-5.3); RED CELL DISTRIBUTION WIDTH 13.8 % (9.6-15.2)
[2019-11-10 04:00] LABS: ALBUMIN 2.2 g/dL (3.4-5.0); ANION GAP 9 mmol/L (5-15); CALCIUM 6.1 mg/dL (8.5-10.1); CHLORIDE 116 mmol/L (98-107)
[2019-11-10 04:03] LABS: ALANINE AMINOTRANSFERASE 39 U/L (12-78); ALKALINE PHOSPHATASE 296 U/L (45-117); BILIRUBIN,TOTAL 0.5 mg/dL (0.2-1.0); CREATININE 1.37 mg/dL (0.55-1.02); TOTAL PROTEIN 6.8 g/dL (6.4-8.2)
[2019-11-10] MEDS: D5%-0.9% NACL 1,000 ML IV SCH ×3 (05:02→22:59)
[2019-11-10] MEDS: ONDANSETRON 2MG/ML, 2ML IVPush PRN ×4 (05:02→22:59)
[2019-11-10] MEDS: DIPHENHYDRAMINE 50 MG/ML, 1ML IVPush PRN ×4 (05:02→22:59)
[2019-11-10] MEDS: NYSTATIN 500,000 UNITS/5 ML UDC PO SCH ×4 (05:02→22:59)
[2019-11-10] MEDS: CARVEDILOL 3.125 MG TABLET PO SCH ×2 (05:02→17:12)
[2019-11-10 07:21] VITALS: BP 142/92
[2019-11-10 13:23] VITALS: BP 154/99
[2019-11-10] MEDS ORDERED: VISIPAQUE 270 MG/ML, 50ML BOTTLE ONE (14:00)
[2019-11-10] MEDS ORDERED: LIDOCAINE 1%, 10ML ONE (14:56)
[2019-11-10] MEDS ORDERED: FLUMAZENIL 0.1 MG/1 ML, 5ML ONE (14:58)
[2019-11-10] MEDS ORDERED: NALOXONE 1 MG/ML, 2ML ONE (14:58)
[2019-11-10] MEDS ORDERED: FENTANYL PF 100 MCG/2ML ONE (14:58)
[2019-11-10] MEDS ORDERED: MIDAZOLAM 1 MG/ML, 5ML ONE ×2 (14:58)
[2019-11-10] MEDS: POTASSIUM CHLORIDE 20 MEQ PACKET PO SCH (17:13)
[2019-11-10 18:34] VITALS: BP 153/98
[2019-11-10 20:30] VITALS: BP 120/83
[2019-11-11 02:29] VITALS: BP 142/91
[2019-11-11] MEDS: CARVEDILOL 3.125 MG TABLET PO SCH ×2 (04:57→18:03)
[2019-11-11] MEDS: ONDANSETRON 2MG/ML, 2ML IVPush PRN ×3 (04:57→21:14)
[2019-11-11] MEDS: DIPHENHYDRAMINE 50 MG/ML, 1ML IVPush PRN ×3 (04:57→19:31)
[2019-11-11] MEDS: NYSTATIN 500,000 UNITS/5 ML UDC PO SCH ×4 (04:57→21:14)
[2019-11-11 07:23] VITALS: BP 150/89
[2019-11-11 08:33] LABS: BASOPHILS # (AUTO) 0.04 x10^3/uL (0-0.1); BASOPHILS % (AUTO) 1 % (0-1); EOSINOPHILS # (AUTO) 0.17 x10^3/uL (0-0.4); EOSINOPHILS % (AUTO) 3 % (1-7); LYMPHOCYTES # (AUTO) 0.82 x10^3/uL (1-3.4); LYMPHOCYTES % (AUTO) 12 % (22-44); MD NO; MEAN CORPUSCULAR HEMOGLOBIN 29.1 pg (27.0-34.8); MEAN CORPUSCULAR HGB CONC 32.6 g/dL (32.4-35.8); MEAN CORPUSCULAR VOLUME 89.3 fL (80-100); MEAN PLATELET VOLUME 7.3 fL (7.4-10.4); MONOCYTES # (AUTO) 0.43 x10^3/uL (0.2-0.8); MONOCYTES % (AUTO) 6 % (2-9); NEUTROPHILS # (AUTO) 5.33 x10^3/uL (1.8-6.8); NEUTROPHILS % (AUTO) 79 % (42-75); PLATELET COUNT 346 x10^3/uL (130-400); RED BLOOD COUNT 3.72 x10^6/uL (3.82-5.3); RED CELL DISTRIBUTION WIDTH 13.8 % (9.6-15.2)
[2019-11-11 08:40] LABS: ALANINE AMINOTRANSFERASE 44 U/L (12-78); ALBUMIN 2.1 g/dL (3.4-5.0); ANION GAP 9 mmol/L (5-15); CHLORIDE 115 mmol/L (98-107); CREATININE 1.26 mg/dL (0.55-1.02)
[2019-11-11 08:42] LABS: ALKALINE PHOSPHATASE 291 U/L (45-117); BILIRUBIN,TOTAL 0.5 mg/dL (0.2-1.0); TOTAL PROTEIN 6.8 g/dL (6.4-8.2)
[2019-11-11 08:59] LABS: CALCIUM 5.3 mg/dL (8.5-10.1)
[2019-11-11] MEDS: D5%-0.9% NACL 1,000 ML IV SCH ×2 (09:48→18:04)
[2019-11-11 13:04] VITALS: BP 154/95
[2019-11-11] MEDS ORDERED: PROCHLORPERAZINE 5 MG/ML, 2ML IVPush ONE (18:00)
[2019-11-11] MEDS ORDERED: PROCHLORPERAZINE 5 MG/ML, 2ML ONE (18:01)
[2019-11-11] MEDS: POTASSIUM CHLORIDE 20 MEQ PACKET PO SCH (18:03)
[2019-11-11] MEDS: CALCIUM CARBONATE 500 MG TAB.CHEW PO PRN ×2 (18:03→23:02)
[2019-11-11 19:17] VITALS: BP 142/84
[2019-11-11] MEDS ORDERED: POTASSIUM CHLORIDE 40 MEQ in SODIUM CHLORIDE 0.9% 500 ML IV ONE (23:00)
[2019-11-11 23:51] LABS: ANION GAP 9 mmol/L (5-15); CHLORIDE 115 mmol/L (98-107); CREATININE 1.41 mg/dL (0.55-1.02)
[2019-11-11 23:54] LABS: CALCIUM 5.2 mg/dL (8.5-10.1)
[2019-11-12 01:25] VITALS: BP 134/85
[2019-11-12] MEDS: DIPHENHYDRAMINE 50 MG/ML, 1ML IVPush PRN ×3 (01:37→18:44)
[2019-11-12] MEDS: CARVEDILOL 3.125 MG TABLET PO SCH ×2 (05:55→17:34)
[2019-11-12] MEDS: NYSTATIN 500,000 UNITS/5 ML UDC PO SCH ×4 (05:55→21:40)
[2019-11-12] MEDS ORDERED: MAGNESIUM SULFATE PMX 4GM/100M 100 ML IV ONE (06:30)
[2019-11-12] MEDS ORDERED: CALCIUM GLUCONATE 4.6 MEQ/10 ML IVPush ONE (07:30)
[2019-11-12] MEDS: D5%-0.9% NACL 1,000 ML IV SCH ×2 (07:53→21:40)
[2019-11-12] MEDS ORDERED: CALCIUM GLUCONATE 4.6 MEQ in SODIUM CHLORIDE 0.9% 100 ML IV ONE (08:00)
[2019-11-12 08:20] VITALS: BP 155/95
[2019-11-12 08:56] LABS: ANION GAP 12 mmol/L (5-15); CHLORIDE 119 mmol/L (98-107); CREATININE 1.64 mg/dL (0.55-1.02)
[2019-11-12 09:04] LABS: CALCIUM 5.7 mg/dL (8.5-10.1)
[2019-11-12 14:20] VITALS: BP 99/67
[2019-11-12 17:32] VITALS: BP 100/67
[2019-11-12] MEDS: POTASSIUM CHLORIDE 20 MEQ PACKET PO SCH (17:33)
[2019-11-12 18:34] VITALS: BP 112/74
[2019-11-12 18:46] LABS: ALANINE AMINOTRANSFERASE 35 U/L (12-78); ALBUMIN 2.2 g/dL (3.4-5.0); ANION GAP 10 mmol/L (5-15); CALCIUM 6.1 mg/dL (8.5-10.1); CHLORIDE 115 mmol/L (98-107)
[2019-11-12 18:49] LABS: ALKALINE PHOSPHATASE 294 U/L (45-117); BILIRUBIN,TOTAL 0.6 mg/dL (0.2-1.0); CREATININE 1.51 mg/dL (0.55-1.02); TOTAL PROTEIN 7.1 g/dL (6.4-8.2)
[2019-11-13 00:30] VITALS: BP 102/78
[2019-11-13] MEDS: DIPHENHYDRAMINE 50 MG/ML, 1ML IVPush PRN ×4 (00:33→18:49)
[2019-11-13 05:57] LABS: CHLORIDE 115 mmol/L (98-107)
[2019-11-13 06:10] LABS: ANION GAP 12 mmol/L (5-15)
[2019-11-13] MEDS: CARVEDILOL 3.125 MG TABLET PO SCH ×2 (06:21→17:24)
[2019-11-13] MEDS: NYSTATIN 500,000 UNITS/5 ML UDC PO SCH ×4 (06:21→20:44)
[2019-11-13 08:30] VITALS: BP 113/73
[2019-11-13] MEDS: D5%-0.9% NACL 1,000 ML IV SCH ×2 (08:40→20:00)
[2019-11-13] MEDS ORDERED: POTASSIUM CHLORIDE 40 MEQ in SODIUM CHLORIDE 0.9% 500 ML IV ONE (10:30)
[2019-11-13 11:31] LABS: CLOSTRIDIUM DIFFICILE ANTIGEN NEGATIVE; CLOSTRIDIUM DIFFICILE TOXIN NEGATIVE (Negative)
[2019-11-13 14:50] VITALS: BP 135/87
[2019-11-13] MEDS: POTASSIUM CHLORIDE 20 MEQ PACKET PO SCH (17:25)
[2019-11-13 18:33] VITALS: BP 126/86
[2019-11-13] MEDS: PSYLLIUM PACKET PO SCH (20:44)
[2019-11-13] MEDS ORDERED: FAMOTIDINE 20 MG TABLET PO SCH ×2 (21:00)
[2019-11-14 02:03] VITALS: BP 111/73
[2019-11-14] MEDS: D5%-0.9% NACL 1,000 ML IV SCH ×2 (03:47→20:15)
[2019-11-14 05:57] LABS: ANION GAP 7 mmol/L (5-15); BASOPHILS # (AUTO) 0.02 x10^3/uL (0-0.1); BASOPHILS % (AUTO) 0 % (0-1); CALCIUM 6.6 mg/dL (8.5-10.1); CHLORIDE 113 mmol/L (98-107); CREATININE 1.18 mg/dL (0.55-1.02); EOSINOPHILS # (AUTO) 0.24 x10^3/uL (0-0.4); EOSINOPHILS % (AUTO) 5 % (1-7); LYMPHOCYTES # (AUTO) 0.97 x10^3/uL (1-3.4); LYMPHOCYTES % (AUTO) 19 % (22-44); MD NO; MEAN CORPUSCULAR HEMOGLOBIN 29.5 pg (27.0-34.8); MEAN CORPUSCULAR VOLUME 89.2 fL (80-100); MEAN PLATELET VOLUME 8.8 fL (7.4-10.4); MONOCYTES # (AUTO) 0.43 x10^3/uL (0.2-0.8); MONOCYTES % (AUTO) 8 % (2-9); NEUTROPHILS # (AUTO) 3.53 x10^3/uL (1.8-6.8); NEUTROPHILS % (AUTO) 68 % (42-75); PLATELET COUNT 278 x10^3/uL (130-400); RED BLOOD COUNT 3.72 x10^6/uL (3.82-5.3)
[2019-11-14] MEDS: NYSTATIN 500,000 UNITS/5 ML UDC PO SCH ×4 (06:23→21:08)
[2019-11-14] MEDS: CARVEDILOL 3.125 MG TABLET PO SCH ×2 (06:23→17:18)
[2019-11-14] MEDS ORDERED: POTASSIUM CHLORIDE 40 MEQ in SODIUM CHLORIDE 0.9% 500 ML IV ONE (07:30)
[2019-11-14] MEDS: PSYLLIUM PACKET PO SCH ×2 (07:57→16:26)
[2019-11-14] MEDS: DIPHENHYDRAMINE 50 MG/ML, 1ML IVPush PRN ×3 (08:04→22:22)
[2019-11-14] MEDS: CALCIUM CARBONATE 500 MG TAB.CHEW PO PRN (08:09)
[2019-11-14 09:28] VITALS: BP 136/85
[2019-11-14] MEDS ORDERED: POTASSIUM CHLORIDE 20 MEQ in SODIUM CHLORIDE 0.9% 250 ML IV ONE (11:30)
[2019-11-14 12:59] VITALS: BP 148/97
[2019-11-14] MEDS: ONDANSETRON 2MG/ML, 2ML IVPush PRN ×2 (16:26→22:22)
[2019-11-14] MEDS: POTASSIUM CHLORIDE 20 MEQ PACKET PO SCH (17:18)
[2019-11-14 19:31] VITALS: BP 105/73
[2019-11-14] MEDS: FAMOTIDINE 20 MG/2 ML IVPush SCH (21:08)
[2019-11-14] MEDS: D5%-0.9% NACL+KCL 20MEQ 1,000 ML IV SCH (21:14)
[2019-11-15 01:18] VITALS: BP 100/69
[2019-11-15 03:28] LABS: ANION GAP 7 mmol/L (5-15); CALCIUM 6.2 mg/dL (8.5-10.1); CHLORIDE 118 mmol/L (98-107)
[2019-11-15] MEDS: DIPHENHYDRAMINE 50 MG/ML, 1ML IVPush PRN ×4 (05:12→23:22)
[2019-11-15] MEDS: NYSTATIN 500,000 UNITS/5 ML UDC PO SCH ×4 (05:12→21:28)
[2019-11-15] MEDS: ONDANSETRON 2MG/ML, 2ML IVPush PRN ×4 (05:12→23:21)
[2019-11-15] MEDS: D5%-0.9% NACL+KCL 20MEQ 1,000 ML IV SCH ×2 (06:32→17:37)
[2019-11-15 07:17] VITALS: BP 122/86
[2019-11-15] MEDS ORDERED: PSYLLIUM PACKET PO SCH (09:00)
[2019-11-15] MEDS: CARVEDILOL 3.125 MG TABLET PO SCH ×2 (11:36→17:37)
[2019-11-15 13:53] VITALS: BP 146/91
[2019-11-15] MEDS ORDERED: MAGNESIUM SULFATE PMX 2GM/50ML 50 ML IV ONE (14:00)
[2019-11-15] MEDS: POTASSIUM CHLORIDE 20 MEQ PACKET PO SCH (17:37)
[2019-11-15] MEDS: OCTREOTIDE 100MCG/ML, 1ML (0.1MG/ML) SQ SCH ×2 (17:37→23:49)
[2019-11-15 20:39] VITALS: BP 138/91
[2019-11-15] MEDS: FAMOTIDINE 20 MG/2 ML IVPush SCH (21:28)
[2019-11-16 00:32] VITALS: BP 134/86
[2019-11-16] MEDS: D5%-0.9% NACL+KCL 20MEQ 1,000 ML IV SCH ×2 (03:32→15:45)
[2019-11-16 05:13] LABS: ANION GAP 9 mmol/L (5-15); CALCIUM 7.4 mg/dL (8.5-10.1); CHLORIDE 114 mmol/L (98-107); CREATININE 1.09 mg/dL (0.55-1.02)
[2019-11-16] MEDS: DIPHENHYDRAMINE 50 MG/ML, 1ML IVPush PRN ×3 (05:24→17:53)
[2019-11-16] MEDS: ONDANSETRON 2MG/ML, 2ML IVPush PRN (05:24)
[2019-11-16] MEDS: NYSTATIN 500,000 UNITS/5 ML UDC PO SCH ×4 (05:50→20:59)
[2019-11-16] MEDS: CARVEDILOL 3.125 MG TABLET PO SCH ×2 (05:52→17:57)
[2019-11-16] MEDS ORDERED: MAGNESIUM SULFATE PMX 2GM/50ML 50 ML IV ONE (09:00)
[2019-11-16 09:51] VITALS: BP 134/91
[2019-11-16] MEDS: OCTREOTIDE 100MCG/ML, 1ML (0.1MG/ML) SQ SCH ×3 (11:08→20:59)
[2019-11-16 14:33] VITALS: BP 129/88
[2019-11-16] MEDS: POTASSIUM CHLORIDE 20 MEQ PACKET PO SCH (17:56)
[2019-11-16 17:57] VITALS: BP 145/107
[2019-11-16 18:28] VITALS: BP 134/93
[2019-11-16] MEDS: FAMOTIDINE 20 MG/2 ML IVPush SCH (20:59)
[2019-11-17] MEDS: DIPHENHYDRAMINE 50 MG/ML, 1ML IVPush PRN ×4 (00:04→19:11)
[2019-11-17 00:31] VITALS: BP 154/102
[2019-11-17] MEDS: D5%-0.9% NACL+KCL 20MEQ 1,000 ML IV SCH ×3 (01:57→23:49)
[2019-11-17] MEDS: CARVEDILOL 3.125 MG TABLET PO SCH ×2 (06:12→15:10)
[2019-11-17] MEDS: NYSTATIN 500,000 UNITS/5 ML UDC PO SCH ×4 (06:12→21:13)
[2019-11-17 08:22] VITALS: BP 123/83
[2019-11-17] MEDS: OCTREOTIDE 100MCG/ML, 1ML (0.1MG/ML) SQ SCH ×3 (09:56→21:14)
[2019-11-17 13:00] LABS: ANION GAP 6 mmol/L (5-15); CALCIUM 8.3 mg/dL (8.5-10.1); CHLORIDE 117 mmol/L (98-107); CREATININE 1.24 mg/dL (0.55-1.02)
[2019-11-17 13:57] VITALS: BP 170/110
[2019-11-17] MEDS ORDERED: MAGNESIUM SULFATE PMX 2GM/50ML 50 ML IV ONE (15:00)
[2019-11-17] MEDS: PINK BISMUTH 87.33 MG/5 ML ORAL SUSP PO SCH ×2 (15:10→21:13)
[2019-11-17] MEDS: POTASSIUM CHLORIDE 20 MEQ PACKET PO SCH (17:00)
[2019-11-17 19:28] VITALS: BP 138/97
[2019-11-17] MEDS ORDERED: hydrALAzine 20 MG/ML, 1ML IV PRN (19:30)
[2019-11-17] MEDS: FAMOTIDINE 20 MG/2 ML IVPush SCH (21:14)
[2019-11-17] MEDS ORDERED: OMNIPAQUE 350 MG/ML, 75ML BOTTLE ONE (23:35)
[2019-11-18] MEDS: DIPHENHYDRAMINE 50 MG/ML, 1ML IVPush PRN ×4 (00:58→20:27)
[2019-11-18 01:13] VITALS: BP 152/98
[2019-11-18 05:27] LABS: BASOPHILS # (AUTO) 0.01 x10^3/uL (0-0.1); BASOPHILS % (AUTO) 0 % (0-1); EOSINOPHILS # (AUTO) 0.22 x10^3/uL (0-0.4); EOSINOPHILS % (AUTO) 4 % (1-7); LYMPHOCYTES # (AUTO) 0.78 x10^3/uL (1-3.4); LYMPHOCYTES % (AUTO) 13 % (22-44); MD NO; MEAN CORPUSCULAR HEMOGLOBIN 29.6 pg (27.0-34.8); MEAN CORPUSCULAR HGB CONC 33.1 g/dL (32.4-35.8); MEAN CORPUSCULAR VOLUME 89.3 fL (80-100); MEAN PLATELET VOLUME 8.9 fL (7.4-10.4); MONOCYTES # (AUTO) 0.43 x10^3/uL (0.2-0.8); MONOCYTES % (AUTO) 7 % (2-9); NEUTROPHILS # (AUTO) 4.55 x10^3/uL (1.8-6.8); NEUTROPHILS % (AUTO) 76 % (42-75); PLATELET COUNT 260 x10^3/uL (130-400); RED BLOOD COUNT 3.78 x10^6/uL (3.82-5.3); RED CELL DISTRIBUTION WIDTH 14.1 % (9.6-15.2)
[2019-11-18 05:36] LABS: CHLORIDE 115 mmol/L (98-107)
[2019-11-18 05:44] LABS: ALANINE AMINOTRANSFERASE 45 U/L (12-78); ALBUMIN 2.4 g/dL (3.4-5.0); ALKALINE PHOSPHATASE 290 U/L (45-117); ANION GAP 8 mmol/L (5-15); BILIRUBIN,TOTAL 0.6 mg/dL (0.2-1.0); CALCIUM 8.6 mg/dL (8.5-10.1); CREATININE 1.09 mg/dL (0.55-1.02); TOTAL PROTEIN 7.3 g/dL (6.4-8.2)
[2019-11-18] MEDS: CARVEDILOL 3.125 MG TABLET PO SCH ×2 (06:25→17:00)
[2019-11-18] MEDS: NYSTATIN 500,000 UNITS/5 ML UDC PO SCH ×4 (06:25→20:26)
[2019-11-18 08:35] VITALS: BP 155/97
[2019-11-18] MEDS: PSYLLIUM PACKET PO SCH (09:55)
[2019-11-18] MEDS: OCTREOTIDE 100MCG/ML, 1ML (0.1MG/ML) SQ SCH ×3 (09:55→22:30)
[2019-11-18] MEDS: D5%-0.9% NACL+KCL 20MEQ 1,000 ML IV SCH ×2 (09:55→18:56)
[2019-11-18] MEDS: PINK BISMUTH 87.33 MG/5 ML ORAL SUSP PO SCH ×3 (09:55→22:30)
[2019-11-18] MEDS: ONDANSETRON 2MG/ML, 2ML IVPush PRN ×2 (11:48→18:56)
[2019-11-18 14:45] VITALS: BP 152/92
[2019-11-18] MEDS: POTASSIUM CHLORIDE 20 MEQ PACKET PO SCH (17:00)
[2019-11-18 19:17] VITALS: BP 146/95
[2019-11-18] MEDS: FAMOTIDINE 20 MG/2 ML IVPush SCH (20:27)
[2019-11-19 00:52] VITALS: BP 159/105
[2019-11-19] MEDS: ONDANSETRON 2MG/ML, 2ML IVPush PRN ×3 (01:46→21:35)
[2019-11-19] MEDS: DIPHENHYDRAMINE 50 MG/ML, 1ML IVPush PRN ×4 (03:00→21:36)
[2019-11-19] MEDS: D5%-0.9% NACL+KCL 20MEQ 1,000 ML IV SCH ×3 (04:15→20:17)
[2019-11-19 05:12] LABS: INTERNATIONAL NORMALIZED RATIO 1.24 (0.93-1.1); PROTHROMBIN TIME 12.8 Seconds (9.6-11.5)
[2019-11-19 05:15] LABS: BASOPHILS # (AUTO) 0.03 x10^3/uL (0-0.1); BASOPHILS % (AUTO) 1 % (0-1); EOSINOPHILS # (AUTO) 0.21 x10^3/uL (0-0.4); EOSINOPHILS % (AUTO) 4 % (1-7); LYMPHOCYTES # (AUTO) 0.76 x10^3/uL (1-3.4); LYMPHOCYTES % (AUTO) 15 % (22-44); MD NO; MEAN CORPUSCULAR HEMOGLOBIN 29.5 pg (27.0-34.8); MEAN CORPUSCULAR HGB CONC 32.8 g/dL (32.4-35.8); MEAN PLATELET VOLUME 9.2 fL (7.4-10.4); MONOCYTES # (AUTO) 0.37 x10^3/uL (0.2-0.8); MONOCYTES % (AUTO) 7 % (2-9); NEUTROPHILS # (AUTO) 3.68 x10^3/uL (1.8-6.8); NEUTROPHILS % (AUTO) 73 % (42-75); PLATELET COUNT 250 x10^3/uL (130-400); RED BLOOD COUNT 3.66 x10^6/uL (3.82-5.3); RED CELL DISTRIBUTION WIDTH 14.1 % (9.6-15.2)
[2019-11-19 05:17] LABS: ALBUMIN 2.5 g/dL (3.4-5.0); ANION GAP 7 mmol/L (5-15); CALCIUM 8.2 mg/dL (8.5-10.1); CHLORIDE 117 mmol/L (98-107)
[2019-11-19 05:22] LABS: ALANINE AMINOTRANSFERASE 43 U/L (12-78); ALKALINE PHOSPHATASE 310 U/L (45-117); BILIRUBIN,TOTAL 0.6 mg/dL (0.2-1.0); CREATININE 1.08 mg/dL (0.55-1.02); TOTAL PROTEIN 7.1 g/dL (6.4-8.2)
[2019-11-19] MEDS: NYSTATIN 500,000 UNITS/5 ML UDC PO SCH ×4 (06:13→21:35)
[2019-11-19] MEDS: CARVEDILOL 3.125 MG TABLET PO SCH ×2 (06:13→18:12)
[2019-11-19] MEDS: PINK BISMUTH 87.33 MG/5 ML ORAL SUSP PO SCH ×3 (09:00→21:40)
[2019-11-19] MEDS: PSYLLIUM PACKET PO SCH (09:00)
[2019-11-19 09:13] VITALS: BP 131/91
[2019-11-19] MEDS: OCTREOTIDE 100MCG/ML, 1ML (0.1MG/ML) SQ SCH ×3 (09:24→21:41)
[2019-11-19] MEDS ORDERED: CHLORHEXIDINE 15 ML UDC MM ONE (10:00)
[2019-11-19] MEDS ORDERED: PROPOFOL 50 ML ONE (10:01)
[2019-11-19] MEDS ORDERED: FENTANYL PF 100 MCG/2ML ONE (10:43)
[2019-11-19] MEDS ORDERED: DEXAMETHASONE 4 MG/ML, 1ML ONE (10:52)
[2019-11-19] MEDS ORDERED: ROCURONIUM 10MG/ML,5ML ONE (10:52)
[2019-11-19] MEDS ORDERED: PROPOFOL 10 MG/ML, 20ML ONE (10:52)
[2019-11-19] MEDS ORDERED: SUCCINYLCHOLINE 20 MG/ML, 10ML ONE (10:52)
[2019-11-19] MEDS ORDERED: NEOSTIGMINE 1 MG/ML, 10ML ONE (10:52)
[2019-11-19] MEDS ORDERED: CEFAZOLIN 1,000 MG ONE (10:52)
[2019-11-19] MEDS ORDERED: GLYCOPYRROLATE 0.2MG/1ML, 5ML ONE (10:52)
[2019-11-19] MEDS ORDERED: ONDANSETRON 2MG/ML, 2ML ONE (10:52)
[2019-11-19 12:25] VITALS: BP 131/91
[2019-11-19] MEDS: HYDROmorphone 2 MG/ML, 1ML IVPush PRN ×2 (12:42→18:09)
[2019-11-19] MEDS ORDERED: MAGNESIUM SULFATE PMX 2GM/50ML 50 ML IV ONE (13:00)
[2019-11-19 13:28] VITALS: BP 136/91
[2019-11-19] MEDS: ACETAMINOPHEN 325 MG TABLET PO PRN (15:16)
[2019-11-19 18:10] VITALS: BP 120/76
[2019-11-19] MEDS: POTASSIUM CHLORIDE 20 MEQ PACKET PO SCH (18:11)
[2019-11-19 19:03] LABS: MICROSCOPIC AUTO
[2019-11-19 19:20] VITALS: BP 97/60
[2019-11-19 20:40] LABS: MICROSCOPIC AUTO
[2019-11-19] MEDS ORDERED: METOCLOPRAMIDE 1 MG/1 ML ORAL SOL PO SCH (21:00)
[2019-11-19] MEDS ORDERED: CIPROFLOXACIN/DEXTROSE 200 MG/100 ML PREMIX IVPB SCH (21:30)
[2019-11-19] MEDS: FAMOTIDINE 20 MG/2 ML IVPush SCH (21:35)
[2019-11-19] MEDS: CIPROFLOXACIN/PMX 400MG/200ML 200 ML IV SCH (21:49)
[2019-11-20] VITALS (7 sets, daily range): BP systolic 82–117; BP diastolic 54–84
[2019-11-20] MEDS: ACETAMINOPHEN 325 MG TABLET PO PRN (01:42)
[2019-11-20] MEDS: DIPHENHYDRAMINE 50 MG/ML, 1ML IVPush PRN ×4 (03:22→22:07)
[2019-11-20] MEDS: ONDANSETRON 2MG/ML, 2ML IVPush PRN ×2 (03:23→12:46)
[2019-11-20 04:59] LABS: ANION GAP 8 mmol/L (5-15); CALCIUM 7.6 mg/dL (8.5-10.1); CHLORIDE 115 mmol/L (98-107); CREATININE 1.26 mg/dL (0.55-1.02)
[2019-11-20] MEDS: NYSTATIN 500,000 UNITS/5 ML UDC PO SCH ×4 (05:48→20:29)
[2019-11-20] MEDS: CARVEDILOL 3.125 MG TABLET PO SCH ×2 (06:00→18:00)
[2019-11-20] MEDS ORDERED: SODIUM CHLORIDE 0.9% 1,000ML IVBOLUS ONE (07:00)
[2019-11-20] MEDS: METOCLOPRAMIDE 1 MG/1 ML ORAL SOL PO SCH ×2 (08:00→16:05)
[2019-11-20] MEDS: D5%-0.9% NACL+KCL 20MEQ 1,000 ML IV SCH (09:31)
[2019-11-20] MEDS: PSYLLIUM PACKET PO SCH (09:32)
[2019-11-20] MEDS: PINK BISMUTH 87.33 MG/5 ML ORAL SUSP PO SCH ×3 (09:32→20:32)
[2019-11-20] MEDS: OCTREOTIDE 100MCG/ML, 1ML (0.1MG/ML) SQ SCH ×3 (09:33→20:32)
[2019-11-20] MEDS: CIPROFLOXACIN/PMX 400MG/200ML 200 ML IV SCH ×2 (09:33→20:32)
[2019-11-20] MEDS: HYDROmorphone 2 MG/ML, 1ML IVPush PRN ×3 (11:31→22:08)
[2019-11-20] MEDS ORDERED: MAGNESIUM SULFATE PMX 2GM/50ML 50 ML IV ONE (12:30)
[2019-11-20] MEDS: POTASSIUM CHLORIDE 20 MEQ PACKET PO SCH (16:04)
[2019-11-20] MEDS: FAMOTIDINE 20 MG/2 ML IVPush SCH (20:31)
[2019-11-21 00:19] VITALS: BP 93/62
[2019-11-21] MEDS: D5%-0.9% NACL+KCL 20MEQ 1,000 ML IV SCH (00:30)
[2019-11-21 04:54] LABS: ALBUMIN 2.1 g/dL (3.4-5.0); ANION GAP 7 mmol/L (5-15); CALCIUM 8.1 mg/dL (8.5-10.1); CHLORIDE 113 mmol/L (98-107)
[2019-11-21 04:58] LABS: ALANINE AMINOTRANSFERASE 21 U/L (12-78); ALKALINE PHOSPHATASE 227 U/L (45-117); BILIRUBIN,TOTAL 0.5 mg/dL (0.2-1.0); CREATININE 1.06 mg/dL (0.55-1.02); TOTAL PROTEIN 6.5 g/dL (6.4-8.2)
[2019-11-21 05:01] LABS: BASOPHILS # (AUTO) 0.02 x10^3/uL (0-0.1); BASOPHILS % (AUTO) 0 % (0-1); EOSINOPHILS % (AUTO) 3 % (1-7); LYMPHOCYTES # (AUTO) 0.66 x10^3/uL (1-3.4); LYMPHOCYTES % (AUTO) 7 % (22-44); MD NO; MEAN CORPUSCULAR HEMOGLOBIN 29.9 pg (27.0-34.8); MEAN CORPUSCULAR VOLUME 90.6 fL (80-100); MONOCYTES # (AUTO) 0.45 x10^3/uL (0.2-0.8); MONOCYTES % (AUTO) 5 % (2-9); NEUTROPHILS # (AUTO) 7.48 x10^3/uL (1.8-6.8); NEUTROPHILS % (AUTO) 84 % (42-75); PLATELET COUNT 203 x10^3/uL (130-400); RED BLOOD COUNT 3.25 x10^6/uL (3.82-5.3); RED CELL DISTRIBUTION WIDTH 14.3 % (9.6-15.2)
[2019-11-21] MEDS: CARVEDILOL 3.125 MG TABLET PO SCH ×2 (05:42→17:23)
[2019-11-21] MEDS: NYSTATIN 500,000 UNITS/5 ML UDC PO SCH ×4 (05:42→21:31)
[2019-11-21] MEDS: HYDROmorphone 2 MG/ML, 1ML IVPush PRN ×5 (05:47→22:34)
[2019-11-21] MEDS: DIPHENHYDRAMINE 50 MG/ML, 1ML IVPush PRN ×3 (05:48→19:31)
[2019-11-21 08:31] VITALS: BP 112/79
[2019-11-21] MEDS: PSYLLIUM PACKET PO SCH (09:00)
[2019-11-21] MEDS ORDERED: MAGNESIUM SULFATE PMX 2GM/50ML 50 ML IV ONE (09:30)
[2019-11-21] MEDS: CIPROFLOXACIN/PMX 400MG/200ML 200 ML IV SCH ×2 (09:33→21:31)
[2019-11-21] MEDS: PINK BISMUTH 87.33 MG/5 ML ORAL SUSP PO SCH ×3 (09:33→21:31)
[2019-11-21] MEDS: METOCLOPRAMIDE 1 MG/1 ML ORAL SOL PO SCH ×2 (09:34→17:23)
[2019-11-21] MEDS: OCTREOTIDE 100MCG/ML, 1ML (0.1MG/ML) SQ SCH (09:34)
[2019-11-21] MEDS: LOPERAMIDE 2 MG CAPSULE PO SCH ×3 (12:21→22:33)
[2019-11-21 14:08] VITALS: BP 121/81
[2019-11-21 17:21] VITALS: BP 131/32
[2019-11-21] MEDS: POTASSIUM CHLORIDE 20 MEQ PACKET PO SCH (17:23)
[2019-11-21 18:51] VITALS: BP 126/81
[2019-11-21] MEDS: FAMOTIDINE 20 MG/2 ML IVPush SCH (21:31)
[2019-11-22 01:42] VITALS: BP 120/86
[2019-11-22] MEDS: DIPHENHYDRAMINE 50 MG/ML, 1ML IVPush PRN ×4 (02:02→23:32)
[2019-11-22] MEDS: HYDROmorphone 2 MG/ML, 1ML IVPush PRN ×4 (03:54→19:15)
[2019-11-22 05:22] LABS: CALCIUM 8.3 mg/dL (8.5-10.1); CHLORIDE 109 mmol/L (98-107)
[2019-11-22 05:25] LABS: ALBUMIN 2.5 g/dL (3.4-5.0); ANION GAP 8 mmol/L (5-15); CREATININE 1.09 mg/dL (0.55-1.02)
[2019-11-22 05:32] VITALS: BP 131/85
[2019-11-22] MEDS: NYSTATIN 500,000 UNITS/5 ML UDC PO SCH ×4 (05:33→21:48)
[2019-11-22] MEDS: LOPERAMIDE 2 MG CAPSULE PO SCH (05:33)
[2019-11-22] MEDS: CARVEDILOL 3.125 MG TABLET PO SCH ×2 (05:35→16:57)
[2019-11-22] MEDS: METOCLOPRAMIDE 1 MG/1 ML ORAL SOL PO SCH ×2 (08:00→16:57)
[2019-11-22] MEDS: CIPROFLOXACIN/PMX 400MG/200ML 200 ML IV SCH ×2 (08:00→21:50)
[2019-11-22] MEDS: PINK BISMUTH 87.33 MG/5 ML ORAL SUSP PO SCH ×3 (08:00→21:48)
[2019-11-22] MEDS ORDERED: LOPERAMIDE 2 MG CAPSULE PO PRN (09:00)
[2019-11-22 09:57] VITALS: BP 132/96
[2019-11-22 13:06] VITALS: BP 127/85
[2019-11-22] MEDS: POTASSIUM CHLORIDE 20 MEQ PACKET PO SCH (16:57)
[2019-11-22 19:04] VITALS: BP 128/88
[2019-11-22] MEDS: FAMOTIDINE 20 MG/2 ML IVPush SCH (21:48)
[2019-11-23] MEDS: HYDROmorphone 2 MG/ML, 1ML IVPush PRN ×5 (01:50→20:31)
[2019-11-23 01:56] VITALS: BP 116/80
[2019-11-23] MEDS: DIPHENHYDRAMINE 50 MG/ML, 1ML IVPush PRN ×3 (05:28→18:21)
[2019-11-23] MEDS: NYSTATIN 500,000 UNITS/5 ML UDC PO SCH ×4 (05:28→20:31)
[2019-11-23] MEDS: CARVEDILOL 3.125 MG TABLET PO SCH ×2 (05:30→17:04)
[2019-11-23 06:36] LABS: ANION GAP 7 mmol/L (5-15); CALCIUM 8.6 mg/dL (8.5-10.1); CHLORIDE 106 mmol/L (98-107)
[2019-11-23 06:37] LABS: CREATININE 1.23 mg/dL (0.55-1.02)
[2019-11-23 06:55] LABS: BASOPHILS # (AUTO) 0.03 x10^3/uL (0-0.1); BASOPHILS % (AUTO) 1 % (0-1); EOSINOPHILS # (AUTO) 0.19 x10^3/uL (0-0.4); EOSINOPHILS % (AUTO) 4 % (1-7); LYMPHOCYTES # (AUTO) 0.69 x10^3/uL (1-3.4); LYMPHOCYTES % (AUTO) 15 % (22-44); MD NO; MEAN CORPUSCULAR HEMOGLOBIN 29.8 pg (27.0-34.8); MEAN CORPUSCULAR HGB CONC 33.2 g/dL (32.4-35.8); MEAN CORPUSCULAR VOLUME 89.7 fL (80-100); MEAN PLATELET VOLUME 9.2 fL (7.4-10.4); MONOCYTES # (AUTO) 0.33 x10^3/uL (0.2-0.8); MONOCYTES % (AUTO) 7 % (2-9); NEUTROPHILS # (AUTO) 3.48 x10^3/uL (1.8-6.8); NEUTROPHILS % (AUTO) 74 % (42-75); PLATELET COUNT 310 x10^3/uL (130-400); RED BLOOD COUNT 4.06 x10^6/uL (3.82-5.3); RED CELL DISTRIBUTION WIDTH 14.4 % (9.6-15.2)
[2019-11-23 09:10] VITALS: BP 127/87
[2019-11-23] MEDS: METOCLOPRAMIDE 1 MG/1 ML ORAL SOL PO SCH ×2 (09:50→17:04)
[2019-11-23] MEDS: CIPROFLOXACIN/PMX 400MG/200ML 200 ML IV SCH ×2 (09:50→21:21)
[2019-11-23] MEDS: PINK BISMUTH 87.33 MG/5 ML ORAL SUSP PO SCH ×3 (09:50→20:31)
[2019-11-23] MEDS ORDERED: MAGNESIUM SULFATE PMX 2GM/50ML 50 ML IV ONE (10:00)
[2019-11-23 12:58] VITALS: BP 136/96
[2019-11-23 17:00] VITALS: BP 129/92
[2019-11-23] MEDS: POTASSIUM CHLORIDE 20 MEQ PACKET PO SCH (17:04)
[2019-11-23 18:46] VITALS: BP 136/96
[2019-11-23] MEDS: FAMOTIDINE 20 MG/2 ML IVPush SCH (20:31)
[2019-11-24] MEDS: DIPHENHYDRAMINE 50 MG/ML, 1ML IVPush PRN ×4 (00:20→20:32)
[2019-11-24] MEDS: HYDROmorphone 2 MG/ML, 1ML IVPush PRN ×5 (01:49→18:16)
[2019-11-24 02:32] VITALS: BP 120/84
[2019-11-24 05:21] LABS: CHLORIDE 107 mmol/L (98-107)
[2019-11-24 05:28] LABS: ANION GAP 9 mmol/L (5-15); CALCIUM 8.9 mg/dL (8.5-10.1); CREATININE 1.11 mg/dL (0.55-1.02)
[2019-11-24] MEDS: NYSTATIN 500,000 UNITS/5 ML UDC PO SCH ×4 (06:36→20:32)
[2019-11-24] MEDS: CARVEDILOL 3.125 MG TABLET PO SCH ×2 (06:37→17:37)
[2019-11-24 06:47] VITALS: BP 126/86
[2019-11-24] MEDS: PINK BISMUTH 87.33 MG/5 ML ORAL SUSP PO SCH ×3 (07:46→20:32)
[2019-11-24] MEDS: METOCLOPRAMIDE 1 MG/1 ML ORAL SOL PO SCH ×2 (07:46→15:45)
[2019-11-24] MEDS: CIPROFLOXACIN/PMX 400MG/200ML 200 ML IV SCH ×2 (10:50→21:35)
[2019-11-24 13:10] VITALS: BP 126/89
[2019-11-24] MEDS: POTASSIUM CHLORIDE 20 MEQ PACKET PO SCH (15:46)
[2019-11-24 18:53] VITALS: BP 127/91
[2019-11-24] MEDS: FAMOTIDINE 20 MG/2 ML IVPush SCH (20:33)
[2019-11-25] MEDS: HYDROmorphone 2 MG/ML, 1ML IVPush PRN ×2 (00:31→06:24)
[2019-11-25 01:24] VITALS: BP 111/75
[2019-11-25] MEDS: DIPHENHYDRAMINE 50 MG/ML, 1ML IVPush PRN ×3 (03:02→15:41)
[2019-11-25 04:52] LABS: ANION GAP 9 mmol/L (5-15); CALCIUM 8.8 mg/dL (8.5-10.1); CHLORIDE 104 mmol/L (98-107)
[2019-11-25 04:53] LABS: CREATININE 1.27 mg/dL (0.55-1.02)
[2019-11-25] MEDS: CARVEDILOL 3.125 MG TABLET PO SCH ×2 (06:24→17:27)
[2019-11-25] MEDS: NYSTATIN 500,000 UNITS/5 ML UDC PO SCH ×3 (06:24→17:27)
[2019-11-25 07:37] VITALS: BP 130/93
[2019-11-25] MEDS ORDERED: MAGNESIUM SULFATE PMX 2GM/50ML 50 ML IV ONE (08:30)
[2019-11-25] MEDS: METOCLOPRAMIDE 1 MG/1 ML ORAL SOL PO SCH ×2 (09:19→17:28)
[2019-11-25] MEDS: PINK BISMUTH 87.33 MG/5 ML ORAL SUSP PO SCH ×2 (09:19→17:28)
[2019-11-25] MEDS: CIPROFLOXACIN/PMX 400MG/200ML 200 ML IV SCH (09:20)
[2019-11-25] MEDS: OXYcodone IR 5MG TABLET PO PRN ×2 (11:18→15:46)
[2019-11-25 15:52] VITALS: BP 128/89
[2019-11-25] MEDS ORDERED: NYST1000 PO (16:48)
[2019-11-25] MEDS ORDERED: CALC200T24 PO (16:48)
[2019-11-25] MEDS ORDERED: POTA20PA25 PO (16:48)
[2019-11-25] MEDS ORDERED: OXYC5TAB3 PO (16:48)
[2019-11-25] MEDS ORDERED: BISM262O17 PO (16:48)
[2019-11-25] MEDS ORDERED: METO5SOL PO (16:48)
[2019-11-25 17:10] LABS: MICROSCOPIC AUTO
[2019-11-25] MEDS: POTASSIUM CHLORIDE 20 MEQ PACKET PO SCH (17:27)
[2019-11-25] MEDS: FAMOTIDINE 20 MG/2 ML IVPush SCH (20:24)
== END 2019-11-25 20:53 | disposition home or self-care (01) | DRG 659 ==
LOC: 4NW 17:31
PROVIDERS: ADMIT Obstetrics & Gynecology; ATTEND Obstetrics & Gynecology
PROC: BT141ZZ Fluoroscopy of Kidneys, Ureters and Bladder using Low Osmolar Contrast (ICD-10-PCS; 2019-10-31)
PROC: 0T9330Z Drainage of Right Kidney Pelvis with Drainage Device, Percutaneous Approach (ICD-10-PCS; 2019-10-31)
PROC: 0T9430Z Drainage of Left Kidney Pelvis with Drainage Device, Percutaneous Approach (ICD-10-PCS; 2019-10-31)
PROC: 0TC43ZZ Extirpation of Matter from Left Kidney Pelvis, Percutaneous Approach (ICD-10-PCS; 2019-11-04)
PROC: 0T763DZ Dilation of Right Ureter with Intraluminal Device, Percutaneous Approach (ICD-10-PCS; 2019-11-04)
PROC: 30233N1 Transfusion of Nonautologous Red Blood Cells into Peripheral Vein, Percutaneous Approach (ICD-10-PCS; 2019-11-05)
PROC: 0T9B70Z Drainage of Bladder with Drainage Device, Via Natural or Artificial Opening (ICD-10-PCS; 2019-11-05)
PROC: BT141ZZ Fluoroscopy of Kidneys, Ureters and Bladder using Low Osmolar Contrast (ICD-10-PCS; 2019-11-10)
PROC: 0T9430Z Drainage of Left Kidney Pelvis with Drainage Device, Percutaneous Approach (ICD-10-PCS; 2019-11-10)
PROC: 0DJ08ZZ Inspection of Upper Intestinal Tract, Via Natural or Artificial Opening Endoscopic (ICD-10-PCS; principal; 2019-11-19 10:00)
DX: N17.9 Acute kidney failure, unspecified (principal); E43 Unspecified severe protein-calorie malnutrition; K85.90 Acute pancreatitis without necrosis or infection, unspecified; Q62.10 Congenital occlusion of ureter, unspecified; E87.1 Hypo-osmolality and hyponatremia; F11.20 Opioid dependence, uncomplicated; G40.89 Other seizures; K52.0 Gastroenteritis and colitis due to radiation; K56.609 Unspecified intestinal obstruction, unspecified as to partial versus complete obstruction; Z68.1 Body mass index [BMI] 19.9 or less, adult; Z20.828 Contact with and (suspected) exposure to other viral communicable diseases; C53.9 Malignant neoplasm of cervix uteri, unspecified; D63.8 Anemia in other chronic diseases classified elsewhere; E83.41 Hypermagnesemia; E83.42 Hypomagnesemia; E83.51 Hypocalcemia; E86.0 Dehydration; E87.5 Hyperkalemia; E87.6 Hypokalemia; G89.29 Other chronic pain; K31.84 Gastroparesis; N13.6 Pyonephrosis; N89.8 Other specified noninflammatory disorders of vagina; F41.9 Anxiety disorder, unspecified; N13.30 Unspecified hydronephrosis; B96.1 Klebsiella pneumoniae [K. pneumoniae] as the cause of diseases classified elsewhere; Y84.2 Radiological procedure and radiotherapy as the cause of abnormal reaction of the patient, or of later complication, without mention of misadventure at the time of the procedure; Z43.2 Encounter for attention to ileostomy; Z80.0 Family history of malignant neoplasm of digestive organs; Z82.49 Family history of ischemic heart disease and other diseases of the circulatory system; Z83.3 Family history of diabetes mellitus; Z85.41 Personal history of malignant neoplasm of cervix uteri; Z86.718 Personal history of other venous thrombosis and embolism; Z92.21 Personal history of antineoplastic chemotherapy; Z92.3 Personal history of irradiation; Z93.3 Colostomy status; Z93.6 Other artificial openings of urinary tract status; Z79.899 Other long term (current) drug therapy; Z88.5 Allergy status to narcotic agent; Z84.89 Family history of other specified conditions; Z81.1 Family history of alcohol abuse and dependence
CPT/HCPCS: 36415; 36600; 50432; 50435; 74018; 74021; 74250; 87106; J3490; J7042; 50693; 74177; 76770; 76937; 80048; 80053; 81001; 82040; 82800; 83690; 83735; 84132; 85025; 85610; 86850; 86870; 86880; 86900; 86902; 86922; 86923; 87040; 87070; 87075; 87086; 87205; 87324; 87635; 93970; 99156; 99157; C1725; C1894; G0378; J0610; J0690; J0744; J1100; J1170; J2250; J2354; J2405; J2704; J2710; J3010; J3480; Q9966; Q9967; C1729; C1751; C1769; C1773; C2625; J0330; J0780; J1200; J2270; J2310; J3475; J7030; J7040; J7050; P9016; Q0163

== ENCOUNTER 2019-12-07 19:08 | Inpatient (IN) | payer MEDICAID ==
[~2019-12-07] VITALS: Ht 144.8 cm; Wt 39.9 kg
[~2019-12-07 19:08] MED LIST changes: +BISM262O17 PO; +METO5SOL PO; +POTA20PA25 PO
--- NOTE | 2019-12-07 19:42 | NUR ---
pt to room from lobby
--- NOTE | 2019-12-07 19:59 | NUR ---
PT STATES SUDDEN ONSET PERIUMBILLICAL PAIN X 3 HOURS. PT PLACED ON MONITORS, FAMILY AT BEDSIDE, IV STARTED. PT [facility]. AWAITING ERMD ASSESSMENT. CONT TO MONITOR.
[2019-12-07 20:24] LABS: BASOPHILS # (AUTO) 0.02 x10^3/uL (0-0.1); BASOPHILS % (AUTO) 0 % (0-1); EOSINOPHILS # (AUTO) 0.08 x10^3/uL (0-0.4); EOSINOPHILS % (AUTO) 2 % (1-7); LYMPHOCYTES # (AUTO) 0.56 x10^3/uL (1-3.4); LYMPHOCYTES % (AUTO) 11 % (22-44); MD NO; MEAN CORPUSCULAR HEMOGLOBIN 29.3 pg (27.0-34.8); MEAN CORPUSCULAR HGB CONC 33.1 g/dL (32.4-35.8); MEAN CORPUSCULAR VOLUME 88.4 fL (80-100); MONOCYTES # (AUTO) 0.28 x10^3/uL (0.2-0.8); MONOCYTES % (AUTO) 5 % (2-9); NEUTROPHILS # (AUTO) 4.33 x10^3/uL (1.8-6.8); NEUTROPHILS % (AUTO) 82 % (42-75); PLATELET COUNT 300 x10^3/uL (130-400); RED BLOOD COUNT 3.53 x10^6/uL (3.82-5.3); RED CELL DISTRIBUTION WIDTH 13.9 % (9.6-15.2)
[2019-12-07] MEDS ORDERED: ONDANSETRON 2MG/ML, 2ML ONE (20:24)
[2019-12-07] MEDS ORDERED: MORPHINE SULFATE 4 MG/ML, 1ML ONE ×2 (20:24→21:08)
[2019-12-07] MEDS: MORPHINE SULFATE 4 MG/ML, 1ML IVPush PRN ×2 (20:29→21:10)
[2019-12-07] MEDS ORDERED: SODIUM CHLORIDE 0.9% 1,000ML IVBOLUS ONE ×2 (20:30→21:30)
[2019-12-07] MEDS ORDERED: ONDANSETRON 2MG/ML, 2ML IVPush ONE (20:30)
[2019-12-07 20:33] LABS: ALANINE AMINOTRANSFERASE 69 U/L (12-78); ALBUMIN 2.9 g/dL (3.4-5.0); ANION GAP 10 mmol/L (5-15); CALCIUM 8.7 mg/dL (8.5-10.1); CHLORIDE 111 mmol/L (98-107); CREATININE 0.92 mg/dL (0.55-1.02)
[2019-12-07 20:35] LABS: ALKALINE PHOSPHATASE 350 U/L (45-117); BILIRUBIN,TOTAL 0.4 mg/dL (0.2-1.0); TOTAL PROTEIN 7.6 g/dL (6.4-8.2)
--- NOTE | 2019-12-07 20:46 | NUR ---
REPORT FROM ISAAC PEÑA ASSUMED CARE FOR PT AT THIS TIME
--- NOTE | 2019-12-07 20:49 | NUR ---
REPORT GIVEN TO ALPHONSO PEÑA. PT GIVEN SUPPLIES TO SELF CATH.
--- NOTE | 2019-12-07 21:05 | NUR ---
BRANDI RN: URINE SAMPLE PROVIDED BY PT, LABELED AND SENT TO LAB
--- NOTE | 2019-12-07 21:13 | NUR ---
BRANDI RN: PT MEDICATED PER EMAR FOR PAIN. 5 RIGHTS ADDRESSED
--- NOTE | 2019-12-07 21:17 | NUR ---
BRANDI RN: K REQUESTED FROM PHARMACY
[2019-12-07 21:22] LABS: MICROSCOPIC AUTO
[2019-12-07] MEDS ORDERED: POTASSIUM CHLORIDE 40 MEQ in SODIUM CHLORIDE 0.9% 500 ML IV ONE (21:30)
--- NOTE | 2019-12-07 21:49 | NUR ---
report to bennie pt to room with tech
[2019-12-07] MEDS ORDERED: ONDANSETRON 2MG/ML, 2ML IVPush PRN (22:00)
[2019-12-07] MEDS ORDERED: DIPHENHYDRAMINE 25 MG CAPSULE PO PRN (22:00)
[2019-12-07] MEDS ORDERED: DIPHENOXYLATE/ATROPINE TABLET PO PRN (22:00)
[2019-12-07] MEDS: OXYcodone IR 5MG TABLET PO PRN (22:43)
[2019-12-07] MEDS: OPIUM TINCTURE 1% 10 MG/ML ORAL.SOL PO SCH (23:10)
[2019-12-07] MEDS: ONDANSETRON ODT 4 MG PO SCH (23:10)
[2019-12-07] MEDS: LOPERAMIDE 1 MG/7.5 ML LIQUID PO SCH (23:10)
[2019-12-07] MEDS ORDERED: METOCLOPRAMIDE 5 MG/ML, 2ML IVPush ONE (23:30)
[2019-12-07] MEDS ORDERED: MAGNESIUM SULFATE PMX 2GM/50ML 50 ML IV ONE (23:30)
[2019-12-07] MEDS: DIPHENHYDRAMINE 50 MG/ML, 1ML IVPush PRN (23:51)
[2019-12-07 23:57] VITALS: BP 112/77
[2019-12-08] MEDS: MORPHINE SULFATE 4 MG/ML, 1ML IVPush PRN ×3 (01:17→09:58)
[2019-12-08 01:41] VITALS: BP 105/63
[2019-12-08] MEDS: ONDANSETRON ODT 4 MG PO SCH ×2 (03:44→09:49)
[2019-12-08] MEDS: NS + 20MEQ KCL 1,000 ML IV SCH ×3 (03:44→20:35)
[2019-12-08] MEDS: OXYcodone IR 5MG TABLET PO PRN (03:45)
[2019-12-08] MEDS: CARVEDILOL 3.125 MG TABLET PO SCH ×2 (05:28→18:25)
[2019-12-08] MEDS: LOPERAMIDE 1 MG/7.5 ML LIQUID PO SCH ×3 (05:31→21:00)
[2019-12-08 05:33] LABS: BASOPHILS # (AUTO) 0.03 x10^3/uL (0-0.1); BASOPHILS % (AUTO) 1 % (0-1); EOSINOPHILS # (AUTO) 0.13 x10^3/uL (0-0.4); EOSINOPHILS % (AUTO) 3 % (1-7); LYMPHOCYTES # (AUTO) 0.75 x10^3/uL (1-3.4); LYMPHOCYTES % (AUTO) 16 % (22-44); MD NO; MEAN CORPUSCULAR HEMOGLOBIN 29.8 pg (27.0-34.8); MEAN CORPUSCULAR VOLUME 87.8 fL (80-100); MEAN PLATELET VOLUME 7.5 fL (7.4-10.4); MONOCYTES # (AUTO) 0.32 x10^3/uL (0.2-0.8); MONOCYTES % (AUTO) 7 % (2-9); NEUTROPHILS # (AUTO) 3.43 x10^3/uL (1.8-6.8); NEUTROPHILS % (AUTO) 74 % (42-75); PLATELET COUNT 235 x10^3/uL (130-400); RED BLOOD COUNT 2.99 x10^6/uL (3.82-5.3); RED CELL DISTRIBUTION WIDTH 14.1 % (9.6-15.2)
[2019-12-08 05:45] LABS: ANION GAP 7 mmol/L (5-15); CALCIUM 8.2 mg/dL (8.5-10.1); CHLORIDE 117 mmol/L (98-107)
[2019-12-08 05:48] LABS: CREATININE 0.84 mg/dL (0.55-1.02)
[2019-12-08] MEDS: DIPHENHYDRAMINE 50 MG/ML, 1ML IVPush PRN ×3 (06:17→18:25)
[2019-12-08 08:33] VITALS: BP 93/65
[2019-12-08] MEDS: NYSTATIN 500,000 UNITS/5 ML UDC PO SCH (09:49)
[2019-12-08] MEDS: OPIUM TINCTURE 1% 10 MG/ML ORAL.SOL PO SCH (09:50)
[2019-12-08] MEDS: METOCLOPRAMIDE 1 MG/1 ML ORAL SOL PO SCH (09:50)
[2019-12-08 12:02] VITALS: BP 96/65
[2019-12-08] MEDS ORDERED: LORazepam 2 MG/ML, 1ML ONE (13:19)
[2019-12-08] MEDS ORDERED: LORazepam 2 MG/ML, 1ML IVPush ONE (13:30)
[2019-12-08] MEDS: HYDROmorphone 1 MG/ML, 1ML INJ IV PRN ×3 (14:50→20:35)
[2019-12-08] MEDS ORDERED: ONDANSETRON ODT 4 MG PO PRN (15:00)
[2019-12-08] MEDS ORDERED: POTASSIUM CHLORIDE 20 MEQ in SODIUM CHLORIDE 0.9% 250 ML IV ONE (16:00)
[2019-12-08] MEDS: POTASSIUM CHLORIDE 20 MEQ PACKET PO SCH (18:25)
[2019-12-08 19:17] VITALS: BP 107/72
[2019-12-08] MEDS: DIPHENOXYLATE/ATROPINE TABLET PO SCH (20:10)
[2019-12-09] MEDS: HYDROmorphone 1 MG/ML, 1ML INJ IV PRN ×6 (00:42→21:30)
[2019-12-09 02:10] VITALS: BP 105/70
[2019-12-09] MEDS: DIPHENHYDRAMINE 50 MG/ML, 1ML IVPush PRN ×4 (02:22→20:47)
[2019-12-09] MEDS: NS + 20MEQ KCL 1,000 ML IV SCH (04:50)
[2019-12-09] MEDS: CARVEDILOL 3.125 MG TABLET PO SCH ×2 (06:12→17:23)
[2019-12-09 06:26] LABS: ANION GAP 7 mmol/L (5-15); CALCIUM 8.8 mg/dL (8.5-10.1); CHLORIDE 115 mmol/L (98-107)
[2019-12-09 06:29] LABS: CREATININE 0.96 mg/dL (0.55-1.02)
[2019-12-09 06:54] VITALS: BP 114/73
[2019-12-09] MEDS ORDERED: MAGNESIUM SULFATE PMX 2GM/50ML 50 ML IV ONE (07:30)
[2019-12-09] MEDS: DIPHENOXYLATE/ATROPINE TABLET PO SCH ×3 (09:20→20:47)
[2019-12-09] MEDS: NYSTATIN 500,000 UNITS/5 ML UDC PO SCH (09:20)
[2019-12-09] MEDS ORDERED: DIPHENHYDRAMINE 25 MG CAPSULE PO PRN (10:00)
[2019-12-09] MEDS: METOCLOPRAMIDE 1 MG/1 ML ORAL SOL PO SCH (10:19)
[2019-12-09] MEDS: LOPERAMIDE 1 MG/7.5 ML LIQUID PO SCH ×3 (10:19→21:02)
[2019-12-09 13:24] VITALS: BP 101/69
[2019-12-09 17:15] VITALS: BP 107/72
[2019-12-09] MEDS: POTASSIUM CHLORIDE 20 MEQ PACKET PO SCH (17:22)
[2019-12-09 19:56] VITALS: BP 112/73
[2019-12-10 02:51] VITALS: BP 104/70
[2019-12-10] MEDS: HYDROmorphone 1 MG/ML, 1ML INJ IV PRN ×5 (03:03→19:47)
[2019-12-10] MEDS: DIPHENHYDRAMINE 50 MG/ML, 1ML IVPush PRN ×3 (04:25→18:25)
[2019-12-10 04:43] LABS: ANION GAP 7 mmol/L (5-15); CALCIUM 8.5 mg/dL (8.5-10.1); CHLORIDE 112 mmol/L (98-107); CREATININE 1.12 mg/dL (0.55-1.02)
[2019-12-10] MEDS: CARVEDILOL 3.125 MG TABLET PO SCH ×2 (05:58→17:30)
[2019-12-10 06:49] VITALS: BP 106/72
[2019-12-10] MEDS: LOPERAMIDE 1 MG/7.5 ML LIQUID PO SCH ×3 (08:34→21:04)
[2019-12-10] MEDS: DIPHENOXYLATE/ATROPINE TABLET PO SCH ×3 (08:34→21:04)
[2019-12-10] MEDS: NYSTATIN 500,000 UNITS/5 ML UDC PO SCH (08:34)
[2019-12-10] MEDS: METOCLOPRAMIDE 1 MG/1 ML ORAL SOL PO SCH (08:34)
[2019-12-10] MEDS ORDERED: MAGNESIUM SULFATE PMX 4GM/100M 100 ML IV ONE (12:30)
[2019-12-10 13:59] VITALS: BP 108/81
[2019-12-10] MEDS: POTASSIUM CHLORIDE 20 MEQ PACKET PO SCH (17:30)
[2019-12-10 17:40] VITALS: BP 118/86
[2019-12-10 18:58] VITALS: BP 111/76
[2019-12-10] MEDS: LORazepam 2 MG/ML, 1ML IVPush PRN (21:04)
[2019-12-11] MEDS: HYDROmorphone 1 MG/ML, 1ML INJ IV PRN ×6 (00:07→22:06)
[2019-12-11 00:19] VITALS: BP 104/71
[2019-12-11] MEDS: DIPHENHYDRAMINE 50 MG/ML, 1ML IVPush PRN ×4 (01:40→21:18)
[2019-12-11] MEDS: CARVEDILOL 3.125 MG TABLET PO SCH ×2 (06:06→17:39)
[2019-12-11] MEDS: DIPHENOXYLATE/ATROPINE TABLET PO SCH ×4 (06:06→21:17)
[2019-12-11] MEDS: LORazepam 2 MG/ML, 1ML IVPush PRN ×2 (06:06→19:51)
[2019-12-11] MEDS: LOPERAMIDE 1 MG/7.5 ML LIQUID PO SCH ×4 (06:07→21:18)
[2019-12-11 06:54] VITALS: BP 99/64
[2019-12-11 08:02] LABS: ANION GAP 8 mmol/L (5-15); CHLORIDE 110 mmol/L (98-107); CREATININE 1.02 mg/dL (0.55-1.02)
[2019-12-11] MEDS ORDERED: OPIUM TINCTURE 1% 10 MG/ML ORAL.SOL PO SCH ×2 (09:00)
[2019-12-11] MEDS: NYSTATIN 500,000 UNITS/5 ML UDC PO SCH (09:47)
[2019-12-11] MEDS: METOCLOPRAMIDE 1 MG/1 ML ORAL SOL PO SCH (09:47)
[2019-12-11 13:26] VITALS: BP 110/76
[2019-12-11] MEDS: CODEINE SULFATE 30 MG TABLET PO SCH ×2 (16:00→21:00)
[2019-12-11] MEDS: POTASSIUM CHLORIDE 20 MEQ PACKET PO SCH (17:39)
[2019-12-11 18:38] VITALS: BP 107/71
[2019-12-12 00:26] VITALS: BP 112/74
[2019-12-12] MEDS: HYDROmorphone 1 MG/ML, 1ML INJ IV PRN ×6 (02:02→23:45)
[2019-12-12] MEDS: LORazepam 2 MG/ML, 1ML IVPush PRN ×4 (02:58→22:26)
[2019-12-12] MEDS: DIPHENHYDRAMINE 50 MG/ML, 1ML IVPush PRN ×4 (03:51→22:26)
[2019-12-12 06:28] VITALS: BP 119/81
[2019-12-12] MEDS: CARVEDILOL 3.125 MG TABLET PO SCH ×2 (06:30→17:06)
[2019-12-12] MEDS: LOPERAMIDE 1 MG/7.5 ML LIQUID PO SCH ×4 (06:30→20:56)
[2019-12-12] MEDS: DIPHENOXYLATE/ATROPINE TABLET PO SCH ×4 (06:30→20:56)
[2019-12-12 08:52] LABS: ANION GAP 9 mmol/L (5-15); CALCIUM 8.4 mg/dL (8.5-10.1); CHLORIDE 109 mmol/L (98-107); CREATININE 1.06 mg/dL (0.55-1.02)
[2019-12-12] MEDS: CODEINE SULFATE 30 MG TABLET PO SCH ×3 (09:00→20:54)
[2019-12-12] MEDS: NYSTATIN 500,000 UNITS/5 ML UDC PO SCH (09:41)
[2019-12-12] MEDS: METOCLOPRAMIDE 1 MG/1 ML ORAL SOL PO SCH ×3 (09:41→20:55)
[2019-12-12] MEDS ORDERED: MAGNESIUM SULFATE PMX 4GM/100M 100 ML IV ONE (10:00)
[2019-12-12 12:54] VITALS: BP 114/75
[2019-12-12] MEDS: POTASSIUM CHLORIDE 20 MEQ PACKET PO SCH (16:08)
[2019-12-12 19:16] VITALS: BP 101/69
[2019-12-13 00:50] VITALS: BP 95/64
[2019-12-13] MEDS: OXYcodone IR 5MG TABLET PO PRN ×3 (03:48→12:50)
[2019-12-13] MEDS: LORazepam 2 MG/ML, 1ML IVPush PRN (04:54)
[2019-12-13] MEDS: DIPHENHYDRAMINE 50 MG/ML, 1ML IVPush PRN ×4 (04:54→22:49)
[2019-12-13] MEDS: CARVEDILOL 3.125 MG TABLET PO SCH ×2 (05:03→17:07)
[2019-12-13 06:01] LABS: CHLORIDE 108 mmol/L (98-107)
[2019-12-13 06:18] LABS: BASOPHILS # (AUTO) 0.02 x10^3/uL (0-0.1); BASOPHILS % (AUTO) 1 % (0-1); EOSINOPHILS # (AUTO) 0.19 x10^3/uL (0-0.4); EOSINOPHILS % (AUTO) 6 % (1-7); LYMPHOCYTES # (AUTO) 0.78 x10^3/uL (1-3.4); LYMPHOCYTES % (AUTO) 24 % (22-44); MD NO; MEAN CORPUSCULAR HEMOGLOBIN 29.6 pg (27.0-34.8); MEAN CORPUSCULAR HGB CONC 33.5 g/dL (32.4-35.8); MEAN CORPUSCULAR VOLUME 88.6 fL (80-100); MEAN PLATELET VOLUME 7.5 fL (7.4-10.4); MONOCYTES # (AUTO) 0.41 x10^3/uL (0.2-0.8); MONOCYTES % (AUTO) 13 % (2-9); NEUTROPHILS % (AUTO) 56 % (42-75); PLATELET COUNT 322 x10^3/uL (130-400); RED BLOOD COUNT 2.68 x10^6/uL (3.82-5.3); RED CELL DISTRIBUTION WIDTH 14.4 % (9.6-15.2)
[2019-12-13] MEDS: LOPERAMIDE 1 MG/7.5 ML LIQUID PO SCH ×4 (06:26→20:56)
[2019-12-13] MEDS: DIPHENOXYLATE/ATROPINE TABLET PO SCH ×4 (06:26→20:53)
[2019-12-13 06:32] LABS: ANION GAP 8 mmol/L (5-15); CREATININE 0.99 mg/dL (0.55-1.02)
[2019-12-13 07:38] VITALS: BP 98/65
[2019-12-13] MEDS: NYSTATIN 500,000 UNITS/5 ML UDC PO SCH (07:42)
[2019-12-13] MEDS: CODEINE SULFATE 30 MG TABLET PO SCH ×3 (07:42→20:54)
[2019-12-13] MEDS: METOCLOPRAMIDE 1 MG/1 ML ORAL SOL PO SCH ×3 (07:42→20:54)
[2019-12-13] MEDS ORDERED: CODEINE SULFATE 30 MG TABLET PO SCH (08:30)
[2019-12-13] MEDS: METOCLOPRAMIDE 10MG TABLET PO SCH ×3 (09:00→17:08)
[2019-12-13] MEDS: LORazepam 0.5MG TABLET PO PRN ×2 (11:19→18:34)
[2019-12-13 12:22] VITALS: BP 102/70
[2019-12-13] MEDS: POTASSIUM CHLORIDE 20 MEQ PACKET PO SCH (17:08)
[2019-12-13 17:13] VITALS: BP 115/77
[2019-12-13 19:35] VITALS: BP 94/59
[2019-12-14] MEDS: METOCLOPRAMIDE 10MG TABLET PO SCH ×5 (00:10→23:41)
[2019-12-14 02:12] VITALS: BP 91/62
[2019-12-14] MEDS: LOPERAMIDE 1 MG/7.5 ML LIQUID PO SCH ×4 (05:00→21:00)
[2019-12-14] MEDS: DIPHENOXYLATE/ATROPINE TABLET PO SCH ×4 (05:00→20:48)
[2019-12-14] MEDS: CARVEDILOL 3.125 MG TABLET PO SCH ×2 (05:00→17:11)
[2019-12-14] MEDS: DIPHENHYDRAMINE 50 MG/ML, 1ML IVPush PRN ×4 (05:00→23:42)
[2019-12-14 06:13] LABS: ANION GAP 9 mmol/L (5-15); CALCIUM 9.4 mg/dL (8.5-10.1); CHLORIDE 104 mmol/L (98-107); CREATININE 1.16 mg/dL (0.55-1.02)
[2019-12-14 06:18] LABS: BASOPHILS # (AUTO) 0.02 x10^3/uL (0-0.1); BASOPHILS % (AUTO) 1 % (0-1); EOSINOPHILS % (AUTO) 5 % (1-7); LYMPHOCYTES # (AUTO) 0.81 x10^3/uL (1-3.4); LYMPHOCYTES % (AUTO) 21 % (22-44); MD NO; MEAN CORPUSCULAR HEMOGLOBIN 29.7 pg (27.0-34.8); MEAN CORPUSCULAR HGB CONC 33.4 g/dL (32.4-35.8); MEAN PLATELET VOLUME 7.5 fL (7.4-10.4); MONOCYTES # (AUTO) 0.41 x10^3/uL (0.2-0.8); MONOCYTES % (AUTO) 11 % (2-9); NEUTROPHILS # (AUTO) 2.34 x10^3/uL (1.8-6.8); NEUTROPHILS % (AUTO) 62 % (42-75); PLATELET COUNT 381 x10^3/uL (130-400); RED CELL DISTRIBUTION WIDTH 14.4 % (9.6-15.2)
[2019-12-14 07:56] VITALS: BP 101/67
[2019-12-14] MEDS: CODEINE SULFATE 30 MG TABLET PO SCH ×3 (08:03→20:49)
[2019-12-14] MEDS: NYSTATIN 500,000 UNITS/5 ML UDC PO SCH (08:03)
[2019-12-14] MEDS: METOCLOPRAMIDE 1 MG/1 ML ORAL SOL PO SCH (08:04)
[2019-12-14] MEDS ORDERED: MAGNESIUM SULFATE PMX 2GM/50ML 50 ML IV ONE (09:30)
[2019-12-14 13:21] VITALS: BP 107/72
[2019-12-14] MEDS: LORazepam 0.5MG TABLET PO PRN (15:26)
[2019-12-14] MEDS: POTASSIUM CHLORIDE 20 MEQ PACKET PO SCH (17:10)
[2019-12-14 18:46] VITALS: BP 107/69
[2019-12-15 00:43] VITALS: BP 92/60
[2019-12-15] MEDS: METOCLOPRAMIDE 10MG TABLET PO SCH ×4 (05:41→23:41)
[2019-12-15] MEDS: CARVEDILOL 3.125 MG TABLET PO SCH ×2 (05:41→17:06)
[2019-12-15] MEDS: LOPERAMIDE 1 MG/7.5 ML LIQUID PO SCH ×4 (05:42→22:48)
[2019-12-15] MEDS: DIPHENOXYLATE/ATROPINE TABLET PO SCH ×4 (05:42→20:52)
[2019-12-15] MEDS: DIPHENHYDRAMINE 50 MG/ML, 1ML IVPush PRN (05:42)
[2019-12-15 06:14] LABS: BASOPHILS # (AUTO) 0.02 x10^3/uL (0-0.1); BASOPHILS % (AUTO) 1 % (0-1); EOSINOPHILS # (AUTO) 0.19 x10^3/uL (0-0.4); EOSINOPHILS % (AUTO) 4 % (1-7); LYMPHOCYTES # (AUTO) 0.85 x10^3/uL (1-3.4); LYMPHOCYTES % (AUTO) 20 % (22-44); MD NO; MEAN CORPUSCULAR HGB CONC 33.5 g/dL (32.4-35.8); MEAN CORPUSCULAR VOLUME 89.4 fL (80-100); MEAN PLATELET VOLUME 7.7 fL (7.4-10.4); MONOCYTES # (AUTO) 0.54 x10^3/uL (0.2-0.8); MONOCYTES % (AUTO) 12 % (2-9); NEUTROPHILS # (AUTO) 2.75 x10^3/uL (1.8-6.8); NEUTROPHILS % (AUTO) 63 % (42-75); PLATELET COUNT 448 x10^3/uL (130-400); RED BLOOD COUNT 3.06 x10^6/uL (3.82-5.3); RED CELL DISTRIBUTION WIDTH 14.9 % (9.6-15.2)
[2019-12-15 06:29] LABS: CHLORIDE 106 mmol/L (98-107)
[2019-12-15 06:35] LABS: ANION GAP 9 mmol/L (5-15); CALCIUM 9.2 mg/dL (8.5-10.1); CREATININE 1.16 mg/dL (0.55-1.02)
[2019-12-15 07:38] VITALS: BP 91/56
[2019-12-15] MEDS: NYSTATIN 500,000 UNITS/5 ML UDC PO SCH (09:03)
[2019-12-15] MEDS: CODEINE SULFATE 30 MG TABLET PO SCH ×3 (09:03→20:52)
[2019-12-15 13:30] VITALS: BP 101/66
[2019-12-15] MEDS: OXYcodone IR 5MG TABLET PO PRN ×2 (13:41→22:38)
[2019-12-15] MEDS: POTASSIUM CHLORIDE 20 MEQ PACKET PO SCH (17:06)
[2019-12-15 18:53] VITALS: BP 107/71
[2019-12-16 02:06] VITALS: BP 96/64
[2019-12-16] MEDS: CARVEDILOL 3.125 MG TABLET PO SCH (05:49)
[2019-12-16] MEDS: LOPERAMIDE 1 MG/7.5 ML LIQUID PO SCH ×3 (05:49→16:25)
[2019-12-16] MEDS: METOCLOPRAMIDE 10MG TABLET PO SCH ×3 (05:49→11:23)
[2019-12-16] MEDS: DIPHENOXYLATE/ATROPINE TABLET PO SCH ×3 (05:49→16:20)
[2019-12-16] MEDS: CODEINE SULFATE 30 MG TABLET PO SCH ×2 (08:15→16:20)
[2019-12-16] MEDS: NYSTATIN 500,000 UNITS/5 ML UDC PO SCH (08:15)
[2019-12-16 08:52] VITALS: BP 96/62
[2019-12-16] MEDS ORDERED: CODE15TA PO (13:31)
[2019-12-16] MEDS ORDERED: DIPH1TAB PO (13:32)
[2019-12-16] MEDS ORDERED: LORA-445 PO (13:35)
[2019-12-16 13:36] VITALS: BP 97/63
[2019-12-16] MEDS: POTASSIUM CHLORIDE 20 MEQ PACKET PO SCH (16:20)
== END 2019-12-16 17:15 | disposition home or self-care (01) | DRG 394 ==
LOC: ED 21:20 → EDIP 21:25 → ED 21:44 → 4NW 22:23
PROVIDERS: ADMIT Obstetrics & Gynecology; ATTEND Obstetrics & Gynecology
DX: K94.19 Other complications of enterostomy (principal); K52.0 Gastroenteritis and colitis due to radiation; N13.30 Unspecified hydronephrosis; N17.9 Acute kidney failure, unspecified; E87.6 Hypokalemia; D64.9 Anemia, unspecified; E83.42 Hypomagnesemia; E86.0 Dehydration; K31.84 Gastroparesis; Y84.2 Radiological procedure and radiotherapy as the cause of abnormal reaction of the patient, or of later complication, without mention of misadventure at the time of the procedure; Z80.0 Family history of malignant neoplasm of digestive organs; Z85.41 Personal history of malignant neoplasm of cervix uteri; Z86.718 Personal history of other venous thrombosis and embolism; Z90.49 Acquired absence of other specified parts of digestive tract; Z90.710 Acquired absence of both cervix and uterus
CPT/HCPCS: 36415; 74018; 74176; 80048; 80053; 81001; 83690; 83735; 85025; 87077; 87086; 87186; 93005; 96374; 96375; 96376; 99285; G0378; J1170; J2405; J3480; Q0162; J1200; J2060; J2270; J2765; J3475; J7030; J7040; Q0163

== ENCOUNTER 2020-03-14 13:20 | Inpatient (IN) | payer MEDICAID ==
[~2020-03-14] VITALS: Ht 144.8 cm; Wt 47.3 kg
[~2020-03-14 13:20] MED LIST changes: +ASPI325T17 PO; -CIPR500T3 PO; +CIPR500T4 PO; +CODE15TA PO; +DIPH12.58 PO; +DIPH1TAB PO; +LORA-445 PO; +MAGN400T50 PO; +METO10TA82 PO; +MORP100S3 PO; +OPIU10TI2 PO; -OXYC5TAB3 PO; +OXYC5TAB98 PO
[2020-03-14] MEDS ORDERED: SODIUM CHLORIDE FLUSH 10ML SYR IVF ONE (14:30)
[2020-03-14] MEDS ORDERED: SODIUM CHLORIDE 0.9% 1,000ML IVBOLUS ONE (14:30)
[2020-03-14] MEDS ORDERED: DIPHENHYDRAMINE 50 MG/ML, 1ML IVPush ONE (14:30)
[2020-03-14] MEDS ORDERED: DIPHENHYDRAMINE 50 MG/ML, 1ML ONE ×2 (14:31→17:16)
[2020-03-14 15:00] LABS: BASOPHILS % (AUTO) 1 % (0-1); EOSINOPHILS % (AUTO) 0 % (1-7); LYMPHOCYTES % (AUTO) 12 % (22-44); MEAN CORPUSCULAR HEMOGLOBIN 31.9 pg (27.0-34.8); MEAN CORPUSCULAR HGB CONC 35.2 g/dL (32.4-35.8); MEAN PLATELET VOLUME 8.4 fL (7.4-10.4); MONOCYTES % (AUTO) 4 % (2-9); NEUTROPHILS % (AUTO) 83 % (42-75); PLATELET COUNT 451 x10^3/uL (130-400); RED BLOOD COUNT 4.73 x10^6/uL (3.82-5.3); RED CELL DISTRIBUTION WIDTH 14.2 % (9.6-15.2)
[2020-03-14 15:06] LABS: MD NO
[2020-03-14 15:09] LABS: ALANINE AMINOTRANSFERASE 75 U/L (12-78); ALBUMIN 3.6 g/dL (3.4-5.0); ANION GAP 13 mmol/L (5-15); CHLORIDE 87 mmol/L (98-107); CREATININE 3.19 mg/dL (0.55-1.02)
[2020-03-14 15:13] LABS: ALKALINE PHOSPHATASE 419 U/L (45-117); BILIRUBIN,TOTAL 0.9 mg/dL (0.2-1.0); TOTAL PROTEIN 10.1 g/dL (6.4-8.2)
[2020-03-14 15:43] LABS: MICROSCOPIC INDICATED
[2020-03-14] MEDS ORDERED: ACETAMINOPHEN 325 MG TABLET PO PRN (16:00)
[2020-03-14] MEDS ORDERED: LORazepam 2 MG/ML, 1ML IVPush PRN (16:00)
[2020-03-14] MEDS ORDERED: morphine SULFATE 10 MG/ML, 1ML IVPush PRN (16:00)
[2020-03-14] MEDS ORDERED: SODIUM CHLORIDE 0.9% 1,000 ML IV SCH ×2 (16:00→17:00)
[2020-03-14] MEDS ORDERED: DIPHENHYDRAMINE 50 MG/ML, 1ML IV PRN ×2 (16:30)
[2020-03-14] MEDS ORDERED: ONDANSETRON ODT 4 MG PO PRN (16:30)
[2020-03-14] MEDS ORDERED: DIPHENHYDRAMINE 12.5MG/5ML, 10ML UDC PO PRN ×2 (16:30)
[2020-03-14] MEDS ORDERED: MAGNESIUM SULFATE PMX 2GM/50ML 50 ML IV ONE (17:00)
[2020-03-14] MEDS ORDERED: MAGNESIUM SULFATE PMX 2GM/50ML 50 ML ONE (17:02)
[2020-03-14] MEDS: DIPHENHYDRAMINE 50 MG/ML, 1ML IV PRN (17:19)
--- NOTE | 2020-03-14 17:22 | NUR ---
LATE ENTRY ARRIVAL NOTE: DR MEDINA AT BEDSIDE. UA, LABS, COMPLETE. IV STARTED. 1L NORMAL SALINE BOLUS COMPLETE. ORDERED MEDICATIONS ADMINISTERED. CHRONIC TACHYCARDIA. SEPSIS PROTOCOL STARTED. WILL CONTINUE TO MONITOR. MOM AT BEDSIDE
--- NOTE | 2020-03-14 17:24 | NUR ---
DISCUSSED ADMINISTRATION OF BENADRYL WITH DR. MEDINA. REPORTED 25MG DOSE ADM. AT 1430. REPORTED ORDERED DOSE FROM DR. AVERY 50MG BENADRYL. REPORTED PT. VOMITING EPISODE WITH SCOP PATCH IN PLACE. PER JOLEEN PAZ TO ADM 50MG BENADRYL PER DR. AVERY ORDER
--- NOTE | 2020-03-14 17:58 | NUR ---
MESSAGE LEFT WITH DR. AVERY ANSWERING SERVICE TO REPORT UOP
--- NOTE | 2020-03-14 18:00 | NUR ---
RECEIVED RETURN CALL FROM DR. AVERY. REPORTED MINIMAL UOP. PER DR. AVERY ADMINISTER 2ND LITER NORMAL SALINE BOLUS AND THEN MAINT. FLUID.
[2020-03-14] MEDS: SCOPOLAMINE 1MG PATCH TD SCH (18:17)
[2020-03-14] MEDS: D5%-0.9% NACL+KCL 20MEQ 1,000 ML IV SCH (18:35)
--- NOTE | 2020-03-14 19:13 | NUR ---
REPORT GIVEN TO TABBY
[2020-03-14 20:54] VITALS: BP 101/69
[2020-03-14] MEDS ORDERED: FAMOTIDINE 20 MG/2 ML IVPush ONE (21:00)
[2020-03-15] MEDS: D5%-0.9% NACL+KCL 20MEQ 1,000 ML IV SCH ×3 (01:46→17:58)
[2020-03-15 01:59] VITALS: BP 92/59
[2020-03-15] MEDS: DIPHENHYDRAMINE 50 MG/ML, 1ML IV PRN ×4 (02:07→21:26)
[2020-03-15] MEDS: ASPIRIN 325 MG TABLET EC PO SCH (06:11)
[2020-03-15 07:45] LABS: BASOPHILS % (AUTO) 1 % (0-1); CALCIUM 7.6 mg/dL (8.5-10.1); CREATININE 1.46 mg/dL (0.55-1.02); EOSINOPHILS % (AUTO) 2 % (1-7); LYMPHOCYTES % (AUTO) 18 % (22-44); MEAN CORPUSCULAR HEMOGLOBIN 31.8 pg (27.0-34.8); MEAN CORPUSCULAR HGB CONC 34.9 g/dL (32.4-35.8); MONOCYTES % (AUTO) 7 % (2-9); NEUTROPHILS % (AUTO) 72 % (42-75); PLATELET COUNT 229 x10^3/uL (130-400); RED BLOOD COUNT 2.97 x10^6/uL (3.82-5.3)
[2020-03-15 07:50] LABS: MD NO
[2020-03-15 08:00] LABS: ANION GAP 4 mmol/L (5-15); CHLORIDE 110 mmol/L (98-107)
[2020-03-15 08:22] VITALS: BP 100/60
[2020-03-15 13:55] VITALS: BP 97/62
[2020-03-15] MEDS ORDERED: MIDAZOLAM 1 MG/ML, 5ML ONE (14:07)
[2020-03-15] MEDS ORDERED: FENTANYL PF 100 MCG/2ML ONE (14:07)
[2020-03-15] MEDS ORDERED: FLUMAZENIL 0.1 MG/1 ML, 5ML ONE (14:08)
[2020-03-15] MEDS ORDERED: NALOXONE 1 MG/ML, 2ML ONE (14:08)
[2020-03-15 19:16] VITALS: BP 103/70
[2020-03-16] MEDS: D5%-0.9% NACL+KCL 20MEQ 1,000 ML IV SCH ×2 (01:52→10:42)
[2020-03-16 02:04] VITALS: BP 97/65
[2020-03-16] MEDS: DIPHENHYDRAMINE 50 MG/ML, 1ML IV PRN ×2 (03:40→09:37)
[2020-03-16 05:50] LABS: ANION GAP 5 mmol/L (5-15); CALCIUM 8.2 mg/dL (8.5-10.1); CHLORIDE 115 mmol/L (98-107)
[2020-03-16 05:51] LABS: CREATININE 0.94 mg/dL (0.55-1.02)
[2020-03-16] MEDS: ASPIRIN 325 MG TABLET EC PO SCH (06:06)
[2020-03-16 06:34] VITALS: BP 95/60
[2020-03-16] MEDS ORDERED: DIPHENHYDRAMINE 12.5MG/5ML, 10ML UDC PO SCH (12:30)
[2020-03-16 12:45] VITALS: BP 101/70
[2020-03-16] MEDS: DIPHENHYDRAMINE 12.5MG/5ML, 10ML UDC PO SCH ×2 (15:07→21:30)
[2020-03-16] MEDS: METOCLOPRAMIDE 1 MG/1 ML ORAL SOL PO SCH ×2 (16:50→21:39)
[2020-03-16] MEDS: OPIUM TINCTURE 1% 10 MG/ML ORAL.SOL PO SCH ×2 (17:45→21:40)
[2020-03-16 20:05] VITALS: BP 108/73
[2020-03-17] MEDS: DIPHENHYDRAMINE 12.5MG/5ML, 10ML UDC PO SCH ×4 (02:46→22:28)
[2020-03-17 03:00] VITALS: BP 110/72
[2020-03-17] MEDS: ASPIRIN 325 MG TABLET EC PO SCH (06:12)
[2020-03-17] MEDS: METOCLOPRAMIDE 1 MG/1 ML ORAL SOL PO SCH ×4 (06:23→20:35)
[2020-03-17 07:01] LABS: ANION GAP 4 mmol/L (5-15); CALCIUM 8.7 mg/dL (8.5-10.1); CHLORIDE 112 mmol/L (98-107); CREATININE 1.08 mg/dL (0.55-1.02)
[2020-03-17 09:03] VITALS: BP 91/59
[2020-03-17] MEDS: OPIUM TINCTURE 1% 10 MG/ML ORAL.SOL PO SCH ×3 (09:37→20:35)
[2020-03-17 14:18] VITALS: BP 112/72
[2020-03-17] MEDS: SCOPOLAMINE 1MG PATCH TD SCH (16:55)
[2020-03-17 20:25] VITALS: BP 102/71
[2020-03-17] MEDS: LORazepam 1MG TABLET PO PRN (20:35)
[2020-03-18 00:47] VITALS: BP 101/67
[2020-03-18] MEDS: DIPHENHYDRAMINE 12.5MG/5ML, 10ML UDC PO SCH ×4 (04:13→22:11)
[2020-03-18] MEDS: ASPIRIN 325 MG TABLET EC PO SCH (04:14)
[2020-03-18 06:02] LABS: ANION GAP 8 mmol/L (5-15); CALCIUM 8.6 mg/dL (8.5-10.1); CHLORIDE 105 mmol/L (98-107); CREATININE 1.32 mg/dL (0.55-1.02)
[2020-03-18 06:25] VITALS: BP 95/62
[2020-03-18 06:46] LABS: BASOPHILS % (AUTO) 1 % (0-1); EOSINOPHILS % (AUTO) 6 % (1-7); LYMPHOCYTES % (AUTO) 21 % (22-44); MEAN CORPUSCULAR HEMOGLOBIN 30.9 pg (27.0-34.8); MEAN CORPUSCULAR HGB CONC 33.9 g/dL (32.4-35.8); MEAN PLATELET VOLUME 7.8 fL (7.4-10.4); MONOCYTES % (AUTO) 8 % (2-9); NEUTROPHILS % (AUTO) 64 % (42-75); PLATELET COUNT 230 x10^3/uL (130-400); RED BLOOD COUNT 3.53 x10^6/uL (3.82-5.3); RED CELL DISTRIBUTION WIDTH 13.7 % (9.6-15.2)
[2020-03-18 06:47] LABS: MD NO
[2020-03-18] MEDS: METOCLOPRAMIDE 1 MG/1 ML ORAL SOL PO SCH ×4 (08:32→20:30)
[2020-03-18] MEDS: OPIUM TINCTURE 1% 10 MG/ML ORAL.SOL PO SCH ×3 (08:32→20:30)
[2020-03-18] MEDS ORDERED: MAGNESIUM SULFATE/D5W 100 ML IVPB ONE (11:30)
[2020-03-18 12:50] VITALS: BP 109/72
[2020-03-18] MEDS: POTASSIUM CHLORIDE 20 MEQ TAB.ER.PRT PO SCH (13:01)
[2020-03-18] MEDS ORDERED: POTASSIUM CHLORIDE 20 MEQ TAB.ER.PRT PO SCH (17:00)
[2020-03-18 18:58] VITALS: BP 111/77
[2020-03-18] MEDS ORDERED: LORazepam 0.5MG TABLET PO ONE (21:00)
[2020-03-19 01:13] VITALS: BP 105/76
[2020-03-19] MEDS: DIPHENHYDRAMINE 12.5MG/5ML, 10ML UDC PO SCH ×4 (04:30→21:48)
[2020-03-19] MEDS: ASPIRIN 325 MG TABLET EC PO SCH (04:30)
[2020-03-19] MEDS: LORazepam 1MG TABLET PO PRN ×2 (04:36→06:36)
[2020-03-19 06:08] LABS: BASOPHILS % (AUTO) 1 % (0-1); EOSINOPHILS % (AUTO) 1 % (1-7); LYMPHOCYTES % (AUTO) 16 % (22-44); MEAN CORPUSCULAR HEMOGLOBIN 31.3 pg (27.0-34.8); MEAN CORPUSCULAR HGB CONC 34.9 g/dL (32.4-35.8); MEAN PLATELET VOLUME 8.4 fL (7.4-10.4); MONOCYTES % (AUTO) 6 % (2-9); NEUTROPHILS % (AUTO) 76 % (42-75); PLATELET COUNT 326 x10^3/uL (130-400); RED BLOOD COUNT 4.15 x10^6/uL (3.82-5.3); RED CELL DISTRIBUTION WIDTH 13.3 % (9.6-15.2)
[2020-03-19 06:11] LABS: CALCIUM 9.6 mg/dL (8.5-10.1); CHLORIDE 98 mmol/L (98-107)
[2020-03-19 06:15] LABS: ANION GAP 10 mmol/L (5-15); CREATININE 1.65 mg/dL (0.55-1.02)
[2020-03-19 06:29] LABS: MD NO
[2020-03-19] MEDS: METOCLOPRAMIDE 1 MG/1 ML ORAL SOL PO SCH ×4 (06:37→20:39)
[2020-03-19] MEDS: POTASSIUM CHLORIDE 20 MEQ TAB.ER.PRT PO SCH (08:59)
[2020-03-19] MEDS: OPIUM TINCTURE 1% 10 MG/ML ORAL.SOL PO SCH ×3 (08:59→20:39)
[2020-03-19 09:36] VITALS: BP 104/74
[2020-03-19] MEDS ORDERED: POTASSIUM CHLORIDE 20 MEQ in SODIUM CHLORIDE 0.9% 250 ML IV ONE (10:00)
[2020-03-19] MEDS ORDERED: SODIUM CHLORIDE 0.9% 1,000ML IVBOLUS ONE (10:00)
[2020-03-19] MEDS: SODIUM CHLORIDE 0.9% 1,000 ML IV SCH ×2 (11:47→20:40)
[2020-03-19 13:58] VITALS: BP 138/70
[2020-03-19] MEDS: PROCHLORPERAZINE 5 MG/ML, 2ML IVPush PRN (16:49)
[2020-03-19] MEDS ORDERED: LORazepam 1MG TABLET PO ONE (20:00)
[2020-03-19] MEDS ORDERED: PROCHLORPERAZINE 10MG TABLET PO ONE (20:00)
[2020-03-19 20:15] VITALS: BP 103/74
[2020-03-19] MEDS: DIPHENHYDRAMINE 50 MG/ML, 1ML IVPush PRN (21:52)
[2020-03-20 01:09] VITALS: BP 100/68
[2020-03-20] MEDS: DIPHENHYDRAMINE 50 MG/ML, 1ML IVPush PRN ×4 (04:00→22:02)
[2020-03-20] MEDS: SODIUM CHLORIDE 0.9% 1,000 ML IV SCH (04:03)
[2020-03-20] MEDS: DIPHENHYDRAMINE 12.5MG/5ML, 10ML UDC PO SCH ×4 (04:47→22:07)
[2020-03-20] MEDS: ASPIRIN 325 MG TABLET EC PO SCH (05:24)
[2020-03-20 05:55] LABS: BASOPHILS % (AUTO) 1 % (0-1); EOSINOPHILS % (AUTO) 3 % (1-7); LYMPHOCYTES % (AUTO) 19 % (22-44); MEAN CORPUSCULAR HEMOGLOBIN 31.2 pg (27.0-34.8); MEAN CORPUSCULAR HGB CONC 34.5 g/dL (32.4-35.8); MEAN PLATELET VOLUME 8.4 fL (7.4-10.4); MONOCYTES % (AUTO) 8 % (2-9); NEUTROPHILS % (AUTO) 69 % (42-75); PLATELET COUNT 225 x10^3/uL (130-400); RED BLOOD COUNT 3.08 x10^6/uL (3.82-5.3); RED CELL DISTRIBUTION WIDTH 13.6 % (9.6-15.2)
[2020-03-20 05:57] LABS: MD NO
[2020-03-20 06:08] LABS: ANION GAP 8 mmol/L (5-15); CALCIUM 8.1 mg/dL (8.5-10.1); CHLORIDE 104 mmol/L (98-107)
[2020-03-20] MEDS: METOCLOPRAMIDE 1 MG/1 ML ORAL SOL PO SCH ×4 (06:25→22:02)
[2020-03-20 07:42] VITALS: BP 95/26
[2020-03-20] MEDS: POTASSIUM CHLORIDE 20 MEQ TAB.ER.PRT PO SCH (09:29)
[2020-03-20] MEDS: OPIUM TINCTURE 1% 10 MG/ML ORAL.SOL PO SCH ×3 (09:29→22:02)
[2020-03-20] MEDS ORDERED: POTASSIUM CHLORIDE 40 MEQ in SODIUM CHLORIDE 0.9% 500 ML IV ONE (09:30)
[2020-03-20] MEDS ORDERED: DIPHENHYDRAMINE 50 MG/ML, 1ML ONE (09:57)
[2020-03-20 13:02] VITALS: BP 99/65
[2020-03-20] MEDS: D5%-0.9% NACL+KCL 20MEQ 1,000 ML IV SCH (14:37)
[2020-03-20] MEDS: SCOPOLAMINE 1MG PATCH TD SCH (15:55)
[2020-03-20] MEDS ORDERED: OMNIPAQUE 350 MG/ML, 75ML BOTTLE ONE (16:58)
[2020-03-20 20:20] VITALS: BP 114/79
[2020-03-21 01:47] VITALS: BP 97/67
[2020-03-21] MEDS: D5%-0.9% NACL+KCL 20MEQ 1,000 ML IV SCH ×2 (02:08→09:50)
[2020-03-21] MEDS: DIPHENHYDRAMINE 50 MG/ML, 1ML IVPush PRN (03:57)
[2020-03-21] MEDS: DIPHENHYDRAMINE 12.5MG/5ML, 10ML UDC PO SCH (03:59)
[2020-03-21 05:57] LABS: BASOPHILS % (AUTO) 1 % (0-1); EOSINOPHILS % (AUTO) 1 % (1-7); LYMPHOCYTES % (AUTO) 9 % (22-44); MEAN CORPUSCULAR HEMOGLOBIN 31.6 pg (27.0-34.8); MEAN CORPUSCULAR HGB CONC 34.7 g/dL (32.4-35.8); MEAN PLATELET VOLUME 8.4 fL (7.4-10.4); MONOCYTES % (AUTO) 7 % (2-9); NEUTROPHILS % (AUTO) 82 % (42-75); PLATELET COUNT 223 x10^3/uL (130-400); RED BLOOD COUNT 2.91 x10^6/uL (3.82-5.3); RED CELL DISTRIBUTION WIDTH 13.3 % (9.6-15.2)
[2020-03-21 06:00] LABS: ANION GAP 6 mmol/L (5-15); CALCIUM 8.6 mg/dL (8.5-10.1); CHLORIDE 110 mmol/L (98-107)
[2020-03-21] MEDS: ASPIRIN 325 MG TABLET EC PO SCH (06:02)
[2020-03-21 06:03] LABS: CREATININE 1.03 mg/dL (0.55-1.02); MD NO
[2020-03-21 06:47] VITALS: BP 115/74
[2020-03-21] MEDS: METOCLOPRAMIDE 1 MG/1 ML ORAL SOL PO SCH (07:00)
[2020-03-21] MEDS: OPIUM TINCTURE 1% 10 MG/ML ORAL.SOL PO SCH (09:00)
[2020-03-21] MEDS ORDERED: HYDROmorphone 1 MG/ML, 1ML INJ IM PRN (09:30)
[2020-03-21] MEDS ORDERED: DIPHENHYDRAMINE 50 MG/ML, 1ML ONE (09:42)
[2020-03-21] MEDS: DIPHENHYDRAMINE 50 MG/ML, 1ML IVPush SCH ×3 (09:47→21:52)
[2020-03-21] MEDS ORDERED: MAGNESIUM SULFATE/D5W 100 ML IVPB ONE (10:00)
[2020-03-21] MEDS ORDERED: TPN PER PHARMACY MC PRN (10:00)
[2020-03-21] MEDS ORDERED: D5%-0.9% NACL+KCL 20MEQ 1,000 ML IV SCH (10:30)
[2020-03-21 12:59] VITALS: BP 117/82
[2020-03-21] MEDS: LORazepam 2 MG/ML, 1ML IVPush SCH ×2 (13:21→18:41)
[2020-03-21] MEDS ORDERED: AMINO ACID 10% IV SCH (17:00)
[2020-03-21] MEDS ORDERED: FAT EMUL IV SCH (17:00)
[2020-03-21] MEDS ORDERED: [UNRECOGNIZED DRUG - OTHER] IV SCH (17:00)
[2020-03-21] MEDS ORDERED: SMOF TPN IV SCH (17:00)
[2020-03-21] MEDS ORDERED: DEXTROSE 70% IV SCH (17:00)
[2020-03-21] MEDS: FILTER, DISP 1.2 MICRON FOR TPN/PVN IV PRN (17:25)
[2020-03-21 18:44] VITALS: BP 112/82
[2020-03-21] MEDS ORDERED: DEXTROSE 50%, 50ML SYRINGE IVPush PRN (21:00)
[2020-03-21] MEDS: INSULIN REGULAR MEDIUM DOSE Q6H X 48HRS SQ-INSULIN SCH (21:00)
[2020-03-21] MEDS ORDERED: DEXTROSE 10% 500 ML IV PRN (21:00)
[2020-03-22 01:36] VITALS: BP 113/80
[2020-03-22] MEDS: LORazepam 2 MG/ML, 1ML IVPush SCH ×4 (01:54→18:32)
[2020-03-22] MEDS: DIPHENHYDRAMINE 50 MG/ML, 1ML IVPush SCH ×4 (03:15→21:15)
[2020-03-22] MEDS: INSULIN REGULAR MEDIUM DOSE Q6H X 48HRS SQ-INSULIN SCH ×3 (05:00→21:00)
[2020-03-22] MEDS: ASPIRIN 325 MG TABLET EC PO SCH (05:11)
[2020-03-22] MEDS: HYDROmorphone 1 MG/ML, 1ML INJ IV PRN ×4 (05:18→21:15)
[2020-03-22 05:33] LABS: BASOPHILS % (AUTO) 1 % (0-1); EOSINOPHILS % (AUTO) 3 % (1-7); LYMPHOCYTES % (AUTO) 10 % (22-44); MEAN CORPUSCULAR HEMOGLOBIN 32.3 pg (27.0-34.8); MEAN PLATELET VOLUME 8.3 fL (7.4-10.4); MONOCYTES % (AUTO) 6 % (2-9); NEUTROPHILS % (AUTO) 81 % (42-75); PLATELET COUNT 226 x10^3/uL (130-400); RED BLOOD COUNT 2.83 x10^6/uL (3.82-5.3); RED CELL DISTRIBUTION WIDTH 13.5 % (9.6-15.2)
[2020-03-22 05:37] LABS: ANION GAP 3 mmol/L (5-15); CALCIUM 8.3 mg/dL (8.5-10.1); CHLORIDE 110 mmol/L (98-107)
[2020-03-22 05:42] LABS: PREALBUMIN 13.4 mg/dL (20.0-40.0)
[2020-03-22 05:46] LABS: MD NO
[2020-03-22] MEDS: D5%-0.9% NACL 1,000 ML IV SCH (07:29)
[2020-03-22 07:51] VITALS: BP 114/76
[2020-03-22] MEDS ORDERED: FAMOTIDINE 20 MG/2 ML IV SCH (09:00)
[2020-03-22 12:39] VITALS: BP 113/81
[2020-03-22] MEDS: FILTER, DISP 1.2 MICRON FOR TPN/PVN IV PRN (16:29)
[2020-03-22] MEDS ORDERED: DEXTROSE 70% IV SCH (17:00)
[2020-03-22] MEDS ORDERED: AMINO ACID 10% IV SCH (17:00)
[2020-03-22] MEDS ORDERED: FAT EMUL IV SCH (17:00)
[2020-03-22] MEDS ORDERED: [UNRECOGNIZED DRUG - OTHER] IV SCH (17:00)
[2020-03-22] MEDS ORDERED: SMOF TPN IV SCH (17:00)
[2020-03-22 18:58] VITALS: BP 112/81
[2020-03-23] MEDS: LORazepam 2 MG/ML, 1ML IVPush SCH ×4 (01:37→18:36)
[2020-03-23 01:48] VITALS: BP 116/82
[2020-03-23] MEDS: DIPHENHYDRAMINE 50 MG/ML, 1ML IVPush SCH ×4 (03:34→21:40)
[2020-03-23] MEDS: INSULIN REGULAR MEDIUM DOSE Q6H X 48HRS SQ-INSULIN SCH ×3 (05:00→21:00)
[2020-03-23 05:52] LABS: ANION GAP 5 mmol/L (5-15); CALCIUM 8.8 mg/dL (8.5-10.1); CHLORIDE 105 mmol/L (98-107); CREATININE 0.89 mg/dL (0.55-1.02)
[2020-03-23] MEDS: ASPIRIN 325 MG TABLET EC PO SCH (06:00)
[2020-03-23 07:15] VITALS: BP 105/73
[2020-03-23] MEDS: PROCHLORPERAZINE 5 MG/ML, 2ML IVPush PRN (07:21)
[2020-03-23] MEDS: HYDROmorphone 1 MG/ML, 1ML INJ IV PRN ×3 (07:57→19:55)
[2020-03-23] MEDS ORDERED: CHLORHEXIDINE 15 ML UDC ONE (09:55)
[2020-03-23] MEDS ORDERED: PROPOFOL 10 MG/ML, 50ML ONE (10:17)
[2020-03-23] MEDS ORDERED: SUCCINYLCHOLINE 20 MG/ML, 10ML ONE (10:17)
[2020-03-23] MEDS ORDERED: MIDAZOLAM 1 MG/ML, 2ML ONE (10:18)
[2020-03-23] MEDS ORDERED: FENTANYL PF 100 MCG/2ML ONE (10:19)
[2020-03-23 12:04] VITALS: BP 100/69
[2020-03-23] MEDS: SCOPOLAMINE 1MG PATCH TD SCH (15:54)
[2020-03-23] MEDS: FILTER, DISP 1.2 MICRON FOR TPN/PVN IV PRN (16:49)
[2020-03-23] MEDS ORDERED: SMOF TPN IV SCH (17:00)
[2020-03-23] MEDS ORDERED: AMINO ACID 10% IV SCH (17:00)
[2020-03-23] MEDS ORDERED: [UNRECOGNIZED DRUG - OTHER] IV SCH (17:00)
[2020-03-23] MEDS ORDERED: FAT EMUL IV SCH (17:00)
[2020-03-23] MEDS ORDERED: DEXTROSE 70% IV SCH (17:00)
[2020-03-23 18:38] VITALS: BP 116/79
[2020-03-23] MEDS: D5%-0.9% NACL 1,000 ML IV SCH (21:40)
[2020-03-24 01:09] VITALS: BP 108/76
[2020-03-24] MEDS: LORazepam 2 MG/ML, 1ML IVPush SCH ×4 (01:24→19:18)
[2020-03-24] MEDS: DIPHENHYDRAMINE 50 MG/ML, 1ML IVPush SCH ×3 (03:20→18:37)
[2020-03-24] MEDS: HYDROmorphone 1 MG/ML, 1ML INJ IV PRN ×2 (03:45→08:13)
[2020-03-24 03:53] LABS: ANION GAP 3 mmol/L (5-15); CALCIUM 8.4 mg/dL (8.5-10.1); CHLORIDE 102 mmol/L (98-107); CREATININE 0.83 mg/dL (0.55-1.02)
[2020-03-24] MEDS: INSULIN REGULAR MEDIUM DOSE Q6H X 48HRS SQ-INSULIN SCH (04:57)
[2020-03-24] MEDS: ASPIRIN 325 MG TABLET EC PO SCH (04:58)
[2020-03-24 06:30] VITALS: BP 103/69
[2020-03-24 12:22] VITALS: BP 107/75
[2020-03-24] MEDS: PROCHLORPERAZINE 5 MG/ML, 2ML IVPush PRN (12:50)
[2020-03-24] MEDS ORDERED: CHLORHEXIDINE 15 ML UDC ONE (13:20)
[2020-03-24] MEDS ORDERED: CHLORHEXIDINE 15 ML UDC MM ONE (13:30)
[2020-03-24] MEDS ORDERED: METHOCARBAMOL 1,000 MG in DEXTROSE 5% 100 ML IV PRN (14:30)
[2020-03-24] MEDS ORDERED: HYDROmorphone 1 MG/ML, 1ML INJ IVPush PRN (14:30)
[2020-03-24] MEDS ORDERED: PROPOFOL 10 MG/ML, 20ML ONE (14:30)
[2020-03-24] MEDS ORDERED: EPHEDRINE 50 MG/ML, 1ML IM PRN (14:30)
[2020-03-24] MEDS ORDERED: ONDANSETRON 2MG/ML, 2ML IVPush PRN (14:30)
[2020-03-24] MEDS ORDERED: MIDAZOLAM 1 MG/ML, 2ML ONE ×2 (14:30→14:45)
[2020-03-24] MEDS ORDERED: LABETALOL 5MG/ML, 20ML IV PRN (14:30)
[2020-03-24] MEDS ORDERED: DIPHENHYDRAMINE 50 MG/ML, 1ML IVPush PRN (14:30)
[2020-03-24] MEDS ORDERED: MIDAZOLAM 1 MG/ML, 2ML IV PRN (14:30)
[2020-03-24] MEDS ORDERED: DIAZEPAM 5 MG/ML, 2ML IVPush PRN (14:30)
[2020-03-24] MEDS ORDERED: FENTANYL PF 100 MCG/2ML IV PRN (14:30)
[2020-03-24] MEDS ORDERED: OXYcodone 5 MG/5 ML ORAL.SOL UDC PO PRN (14:30)
[2020-03-24] MEDS ORDERED: LORazepam 2 MG/ML, 1ML IVPush PRN (14:30)
[2020-03-24] MEDS ORDERED: HYDROcodone/APAP 7.5-325MG/15ML UDC PO PRN (14:30)
[2020-03-24] MEDS ORDERED: HALOPERIDOL 5 MG/ML IV PRN (14:30)
[2020-03-24] MEDS ORDERED: METOCLOPRAMIDE 5 MG/ML, 2ML IVPush PRN (14:30)
[2020-03-24] MEDS ORDERED: ALBUTEROL SULFATE 2.5 MG/3 ML NPPB PRN (14:30)
[2020-03-24] MEDS ORDERED: DEXAMETHASONE 4 MG/ML, 1ML ONE (14:43)
[2020-03-24] MEDS ORDERED: PHENYLEPHRINE 10 MG/ML ONE (14:43)
[2020-03-24] MEDS ORDERED: GLYCOPYRROLATE 0.2MG/1ML, 5ML ONE (14:43)
[2020-03-24] MEDS ORDERED: FENTANYL PF 100 MCG/2ML ONE (16:07)
[2020-03-24] MEDS ORDERED: AMINO ACID 10% IV SCH (17:00)
[2020-03-24] MEDS ORDERED: [UNRECOGNIZED DRUG - OTHER] IV SCH (17:00)
[2020-03-24] MEDS ORDERED: SMOF TPN IV SCH (17:00)
[2020-03-24] MEDS ORDERED: DEXTROSE 70% IV SCH (17:00)
[2020-03-24] MEDS ORDERED: FAT EMUL IV SCH (17:00)
[2020-03-24] MEDS ORDERED: LORazepam 2 MG/ML, 1ML ONE (18:08)
[2020-03-24] MEDS ORDERED: HYDROmorphone 1 MG/ML, 1ML INJ ONE (18:08)
[2020-03-24] MEDS: FILTER, DISP 1.2 MICRON FOR TPN/PVN IV PRN (18:36)
[2020-03-24 19:11] VITALS: BP 104/71
[2020-03-24] MEDS: INSULIN REGULAR MEDIUM DOSE QDAY SQ-INSULIN SCH (21:54)
[2020-03-24] MEDS: ONDANSETRON 2MG/ML, 2ML IVPush PRN (22:19)
[2020-03-24] MEDS: LACTATED RINGERS 1,000 ML IV SCH (22:51)
[2020-03-25] MEDS: DIPHENHYDRAMINE 50 MG/ML, 1ML IVPush SCH ×4 (00:05→19:39)
[2020-03-25 00:14] VITALS: BP 96/61
[2020-03-25] MEDS: LORazepam 2 MG/ML, 1ML IVPush SCH ×4 (01:31→19:40)
[2020-03-25 03:51] VITALS: BP 105/71
[2020-03-25] MEDS: ASPIRIN 325 MG TABLET EC PO SCH (06:13)
[2020-03-25 07:06] VITALS: BP 117/82
[2020-03-25] MEDS: HYDROmorphone 1 MG/ML, 1ML INJ IV PRN ×3 (08:54→20:54)
[2020-03-25 11:39] LABS: BASOPHILS % (AUTO) 0 % (0-1); EOSINOPHILS % (AUTO) 0 % (1-7); LYMPHOCYTES % (AUTO) 8 % (22-44); MEAN CORPUSCULAR HEMOGLOBIN 31.2 pg (27.0-34.8); MEAN CORPUSCULAR HGB CONC 34.3 g/dL (32.4-35.8); MEAN PLATELET VOLUME 9.1 fL (7.4-10.4); MONOCYTES % (AUTO) 5 % (2-9); NEUTROPHILS % (AUTO) 87 % (42-75); PLATELET COUNT 202 x10^3/uL (130-400); RED BLOOD COUNT 2.56 x10^6/uL (3.82-5.3); RED CELL DISTRIBUTION WIDTH 13.2 % (9.6-15.2)
[2020-03-25 11:42] LABS: MD NO
[2020-03-25 11:51] LABS: ANION GAP 3 mmol/L (5-15); CALCIUM 8.4 mg/dL (8.5-10.1); CHLORIDE 106 mmol/L (98-107); CREATININE 0.85 mg/dL (0.55-1.02)
[2020-03-25 11:55] VITALS: BP 118/79
[2020-03-25] MEDS ORDERED: DEXTROSE 70% IV SCH (17:00)
[2020-03-25] MEDS ORDERED: AMINO ACID 10% IV SCH (17:00)
[2020-03-25] MEDS ORDERED: [UNRECOGNIZED DRUG - OTHER] IV SCH (17:00)
[2020-03-25] MEDS ORDERED: FAT EMUL IV SCH (17:00)
[2020-03-25] MEDS ORDERED: SMOF TPN IV SCH (17:00)
[2020-03-25] MEDS ORDERED: OMNIPAQUE 350 MG/ML, 150 ML BOTTLE ONE (19:41)
[2020-03-25 20:00] VITALS: BP 113/82
[2020-03-25] MEDS: INSULIN REGULAR MEDIUM DOSE QDAY SQ-INSULIN SCH (20:53)
[2020-03-26] MEDS: DIPHENHYDRAMINE 50 MG/ML, 1ML IVPush SCH ×4 (01:25→19:33)
[2020-03-26] MEDS: LORazepam 2 MG/ML, 1ML IVPush SCH ×4 (01:26→19:33)
[2020-03-26] MEDS: LACTATED RINGERS 1,000 ML IV SCH (01:30)
[2020-03-26 01:39] VITALS: BP 95/59
[2020-03-26] MEDS: ASPIRIN 325 MG TABLET EC PO SCH (05:09)
[2020-03-26 05:42] LABS: ANION GAP 3 mmol/L (5-15); CALCIUM 8.5 mg/dL (8.5-10.1); CHLORIDE 105 mmol/L (98-107)
[2020-03-26 05:44] LABS: CREATININE 0.77 mg/dL (0.55-1.02)
[2020-03-26 08:45] VITALS: BP 101/71
[2020-03-26 12:10] VITALS: BP 105/74
[2020-03-26] MEDS: HYDROmorphone 1 MG/ML, 1ML INJ IV PRN ×2 (14:46→20:00)
[2020-03-26] MEDS: SCOPOLAMINE 1MG PATCH TD SCH (14:46)
[2020-03-26] MEDS ORDERED: SMOF TPN IV SCH (17:00)
[2020-03-26] MEDS ORDERED: [UNRECOGNIZED DRUG - OTHER] IV SCH (17:00)
[2020-03-26] MEDS ORDERED: DEXTROSE 70% IV SCH (17:00)
[2020-03-26] MEDS ORDERED: FAT EMUL IV SCH (17:00)
[2020-03-26] MEDS ORDERED: AMINO ACID 10% IV SCH (17:00)
[2020-03-26] MEDS: FILTER, DISP 1.2 MICRON FOR TPN/PVN IV PRN (17:23)
[2020-03-26 18:29] VITALS: BP 109/75
[2020-03-26] MEDS: INSULIN REGULAR MEDIUM DOSE QDAY SQ-INSULIN SCH (23:23)
[2020-03-27] MEDS: HYDROmorphone 1 MG/ML, 1ML INJ IV PRN ×5 (00:03→20:48)
[2020-03-27] MEDS: LORazepam 2 MG/ML, 1ML IVPush SCH ×4 (01:34→19:43)
[2020-03-27] MEDS: DIPHENHYDRAMINE 50 MG/ML, 1ML IVPush SCH ×4 (01:34→19:43)
[2020-03-27] MEDS: LACTATED RINGERS 1,000 ML IV SCH (01:35)
[2020-03-27 01:38] VITALS: BP 92/60
[2020-03-27 04:43] LABS: ANION GAP 6 mmol/L (5-15); CALCIUM 8.7 mg/dL (8.5-10.1); CHLORIDE 105 mmol/L (98-107)
[2020-03-27] MEDS: ASPIRIN 325 MG TABLET EC PO SCH (06:12)
[2020-03-27] MEDS: OPIUM TINCTURE 1% 10 MG/ML ORAL.SOL PO SCH ×3 (08:02→20:48)
[2020-03-27 09:10] VITALS: BP 104/74
[2020-03-27] MEDS: METOCLOPRAMIDE 1 MG/1 ML ORAL SOL PO SCH ×3 (12:00→21:24)
[2020-03-27 13:08] VITALS: BP 93/68
[2020-03-27] MEDS: FILTER, DISP 1.2 MICRON FOR TPN/PVN IV PRN (16:42)
[2020-03-27] MEDS ORDERED: DEXTROSE 70% IV SCH (17:00)
[2020-03-27] MEDS ORDERED: AMINO ACID 10% IV SCH (17:00)
[2020-03-27] MEDS ORDERED: SMOF TPN IV SCH (17:00)
[2020-03-27] MEDS ORDERED: [UNRECOGNIZED DRUG - OTHER] IV SCH (17:00)
[2020-03-27] MEDS ORDERED: FAT EMUL IV SCH (17:00)
[2020-03-27 19:29] VITALS: BP 104/65
[2020-03-27] MEDS: INSULIN REGULAR MEDIUM DOSE QDAY SQ-INSULIN SCH (19:50)
[2020-03-28] MEDS: HYDROmorphone 1 MG/ML, 1ML INJ IV PRN ×5 (00:27→20:52)
[2020-03-28 00:31] VITALS: BP 102/70
[2020-03-28] MEDS: LORazepam 2 MG/ML, 1ML IVPush SCH ×4 (02:24→20:49)
[2020-03-28] MEDS: DIPHENHYDRAMINE 50 MG/ML, 1ML IVPush SCH ×4 (02:24→20:54)
[2020-03-28] MEDS: LACTATED RINGERS 1,000 ML IV SCH (02:28)
[2020-03-28 02:58] LABS: ANION GAP 3 mmol/L (5-15); CALCIUM 8.8 mg/dL (8.5-10.1); CHLORIDE 102 mmol/L (98-107); CREATININE 0.96 mg/dL (0.55-1.02)
[2020-03-28] MEDS: ASPIRIN 325 MG TABLET EC PO SCH (05:28)
[2020-03-28 08:07] VITALS: BP 103/71
[2020-03-28] MEDS: OPIUM TINCTURE 1% 10 MG/ML ORAL.SOL PO SCH ×3 (08:23→20:48)
[2020-03-28] MEDS: METOCLOPRAMIDE 1 MG/1 ML ORAL SOL PO SCH ×4 (08:23→20:49)
[2020-03-28 13:05] VITALS: BP 103/63
[2020-03-28] MEDS: FILTER, DISP 1.2 MICRON FOR TPN/PVN IV PRN (16:12)
[2020-03-28] MEDS ORDERED: SMOF TPN IV SCH (17:00)
[2020-03-28] MEDS ORDERED: [UNRECOGNIZED DRUG - OTHER] IV SCH (17:00)
[2020-03-28] MEDS ORDERED: FAT EMUL IV SCH (17:00)
[2020-03-28] MEDS ORDERED: AMINO ACID 10% IV SCH (17:00)
[2020-03-28] MEDS ORDERED: DEXTROSE 70% IV SCH (17:00)
[2020-03-28 19:28] VITALS: BP 113/81
[2020-03-28] MEDS: INSULIN REGULAR MEDIUM DOSE QDAY SQ-INSULIN SCH (21:01)
[2020-03-29 00:54] VITALS: BP 115/77
[2020-03-29] MEDS: HYDROmorphone 1 MG/ML, 1ML INJ IV PRN ×5 (00:59→20:50)
[2020-03-29] MEDS: LORazepam 2 MG/ML, 1ML IVPush SCH ×2 (02:34→08:48)
[2020-03-29] MEDS: DIPHENHYDRAMINE 50 MG/ML, 1ML IVPush SCH ×4 (02:35→20:48)
[2020-03-29] MEDS: LACTATED RINGERS 1,000 ML IV SCH ×2 (02:39→23:03)
[2020-03-29] MEDS: ASPIRIN 325 MG TABLET EC PO SCH (05:19)
[2020-03-29 05:46] LABS: ALANINE AMINOTRANSFERASE 144 U/L (12-78); ALBUMIN 2.5 g/dL (3.4-5.0); ANION GAP 5 mmol/L (5-15); CALCIUM 9.3 mg/dL (8.5-10.1); CHLORIDE 102 mmol/L (98-107); CREATININE 0.94 mg/dL (0.55-1.02); TRIGLYCERIDES 170 mg/dL (50-200)
[2020-03-29 05:50] LABS: ALKALINE PHOSPHATASE 881 U/L (45-117); BILIRUBIN,TOTAL 0.7 mg/dL (0.2-1.0); PREALBUMIN 22.6 mg/dL (20.0-40.0); TOTAL PROTEIN 7.4 g/dL (6.4-8.2)
[2020-03-29] MEDS: METOCLOPRAMIDE 1 MG/1 ML ORAL SOL PO SCH ×2 (06:54→11:00)
[2020-03-29 08:00] VITALS: BP 104/72
[2020-03-29] MEDS: OPIUM TINCTURE 1% 10 MG/ML ORAL.SOL PO SCH ×3 (08:48→23:00)
[2020-03-29] MEDS: PROCHLORPERAZINE 5 MG/ML, 2ML IVPush PRN (13:04)
[2020-03-29 14:00] VITALS: BP 114/80
[2020-03-29] MEDS: ONDANSETRON 2MG/ML, 2ML IVPush PRN (16:53)
[2020-03-29] MEDS: LORazepam 0.5MG TABLET PO SCH ×2 (16:53→23:00)
[2020-03-29] MEDS: FILTER, DISP 1.2 MICRON FOR TPN/PVN IV PRN (16:53)
[2020-03-29] MEDS: SCOPOLAMINE 1MG PATCH TD SCH (16:53)
[2020-03-29] MEDS ORDERED: SMOF TPN IV SCH (17:00)
[2020-03-29] MEDS ORDERED: DEXTROSE 70% IV SCH (17:00)
[2020-03-29] MEDS ORDERED: FAT EMUL IV SCH (17:00)
[2020-03-29] MEDS ORDERED: AMINO ACID 10% IV SCH (17:00)
[2020-03-29] MEDS ORDERED: [UNRECOGNIZED DRUG - OTHER] IV SCH (17:00)
[2020-03-29 18:21] VITALS: BP 116/84
[2020-03-29] MEDS: INSULIN REGULAR MEDIUM DOSE QDAY SQ-INSULIN SCH (20:47)
[2020-03-30 01:02] VITALS: BP 93/66
[2020-03-30] MEDS: DIPHENHYDRAMINE 50 MG/ML, 1ML IVPush SCH ×4 (02:35→20:15)
[2020-03-30] MEDS: LORazepam 0.5MG TABLET PO SCH ×4 (05:28→23:35)
[2020-03-30] MEDS: ASPIRIN 325 MG TABLET EC PO SCH (05:28)
[2020-03-30 06:29] LABS: CHLORIDE 103 mmol/L (98-107)
[2020-03-30 06:36] LABS: ANION GAP 8 mmol/L (5-15); CALCIUM 9.2 mg/dL (8.5-10.1); CREATININE 0.96 mg/dL (0.55-1.02)
[2020-03-30 07:09] VITALS: BP 98/63
[2020-03-30] MEDS: OPIUM TINCTURE 1% 10 MG/ML ORAL.SOL PO SCH ×3 (08:37→20:14)
[2020-03-30 12:33] VITALS: BP 102/68
[2020-03-30] MEDS: HYDROmorphone 1 MG/ML, 1ML INJ IV PRN ×2 (15:07→20:25)
[2020-03-30] MEDS: FILTER, DISP 1.2 MICRON FOR TPN/PVN IV PRN (16:40)
[2020-03-30] MEDS ORDERED: [UNRECOGNIZED DRUG - OTHER] IV SCH (17:00)
[2020-03-30] MEDS ORDERED: [UNRECOGNIZED DRUG - OTHER] IV SCH (17:00)
[2020-03-30] MEDS ORDERED: AMINO ACID 10% IV SCH ×2 (17:00)
[2020-03-30] MEDS ORDERED: SMOF TPN IV SCH ×2 (17:00)
[2020-03-30] MEDS ORDERED: DEXTROSE 70% IV SCH ×2 (17:00)
[2020-03-30] MEDS ORDERED: FAT EMUL IV SCH ×2 (17:00)
[2020-03-30 19:30] VITALS: BP 119/76
[2020-03-30] MEDS: INSULIN REGULAR MEDIUM DOSE QDAY SQ-INSULIN SCH (20:18)
[2020-03-31 00:35] VITALS: BP 110/75
[2020-03-31] MEDS: HYDROmorphone 1 MG/ML, 1ML INJ IV PRN ×4 (00:53→20:19)
[2020-03-31] MEDS: LACTATED RINGERS 1,000 ML IV SCH ×2 (00:56→23:51)
[2020-03-31] MEDS: DIPHENHYDRAMINE 50 MG/ML, 1ML IVPush SCH (02:16)
[2020-03-31] MEDS: LORazepam 0.5MG TABLET PO SCH (05:56)
[2020-03-31] MEDS: ASPIRIN 325 MG TABLET EC PO SCH (05:59)
[2020-03-31 06:18] LABS: BASOPHILS % (AUTO) 0 % (0-1); EOSINOPHILS % (AUTO) 3 % (1-7); LYMPHOCYTES % (AUTO) 15 % (22-44); MEAN CORPUSCULAR HEMOGLOBIN 31.1 pg (27.0-34.8); MEAN CORPUSCULAR HGB CONC 33.7 g/dL (32.4-35.8); MEAN PLATELET VOLUME 9.1 fL (7.4-10.4); MONOCYTES % (AUTO) 11 % (2-9); NEUTROPHILS % (AUTO) 71 % (42-75); PLATELET COUNT 319 x10^3/uL (130-400); RED BLOOD COUNT 3.07 x10^6/uL (3.82-5.3); RED CELL DISTRIBUTION WIDTH 13.6 % (9.6-15.2)
[2020-03-31 06:25] LABS: CHLORIDE 102 mmol/L (98-107)
[2020-03-31 06:31] LABS: ANION GAP 8 mmol/L (5-15); CALCIUM 9.8 mg/dL (8.5-10.1); CREATININE 1.05 mg/dL (0.55-1.02)
[2020-03-31 06:32] LABS: MD NO
[2020-03-31 09:00] VITALS: BP 104/65
[2020-03-31] MEDS: DIPHENHYDRAMINE 12.5MG/5ML, 10ML UDC PO SCH ×4 (09:43→21:31)
[2020-03-31] MEDS: LORazepam INTENSOL 2 MG/ML PO SCH ×3 (09:43→23:49)
[2020-03-31] MEDS: OPIUM TINCTURE 1% 10 MG/ML ORAL.SOL PO SCH ×3 (09:43→21:34)
[2020-03-31 14:00] VITALS: BP 97/66
[2020-03-31] MEDS: DIPHENHYDRAMINE 50 MG/ML, 1ML IVPush PRN ×2 (15:29→21:31)
[2020-03-31] MEDS: FILTER, DISP 1.2 MICRON FOR TPN/PVN IV PRN (16:07)
[2020-03-31] MEDS ORDERED: [UNRECOGNIZED DRUG - OTHER] IV SCH (17:00)
[2020-03-31] MEDS ORDERED: DEXTROSE 70% IV SCH (17:00)
[2020-03-31] MEDS ORDERED: AMINO ACID 10% IV SCH (17:00)
[2020-03-31] MEDS ORDERED: FAT EMUL IV SCH (17:00)
[2020-03-31] MEDS ORDERED: SMOF TPN IV SCH (17:00)
[2020-03-31 19:41] VITALS: BP 109/73
[2020-03-31] MEDS: INSULIN REGULAR MEDIUM DOSE QDAY SQ-INSULIN SCH (21:36)
[2020-04-01 00:03] VITALS: BP 107/76
[2020-04-01] MEDS: DIPHENHYDRAMINE 12.5MG/5ML, 10ML UDC PO SCH ×4 (03:12→20:54)
[2020-04-01] MEDS: DIPHENHYDRAMINE 50 MG/ML, 1ML IVPush PRN ×2 (03:13→21:27)
[2020-04-01] MEDS: HYDROmorphone 1 MG/ML, 1ML INJ IV PRN ×4 (03:21→20:55)
[2020-04-01 03:40] LABS: ANION GAP 6 mmol/L (5-15); CALCIUM 9.3 mg/dL (8.5-10.1); CHLORIDE 100 mmol/L (98-107)
[2020-04-01] MEDS: LORazepam INTENSOL 2 MG/ML PO SCH ×3 (05:36→18:15)
[2020-04-01] MEDS: ASPIRIN 325 MG TABLET EC PO SCH (05:36)
[2020-04-01 08:10] VITALS: BP 93/63
[2020-04-01] MEDS: OPIUM TINCTURE 1% 10 MG/ML ORAL.SOL PO SCH ×3 (10:29→20:54)
[2020-04-01] MEDS ORDERED: LORazepam 0.5MG TABLET ONE (12:00)
[2020-04-01 15:15] VITALS: BP 97/65
[2020-04-01] MEDS ORDERED: AMINO ACID 10% IV SCH (17:00)
[2020-04-01] MEDS ORDERED: [UNRECOGNIZED DRUG - OTHER] IV SCH (17:00)
[2020-04-01] MEDS ORDERED: SMOF TPN IV SCH (17:00)
[2020-04-01] MEDS ORDERED: DEXTROSE 70% IV SCH (17:00)
[2020-04-01] MEDS ORDERED: FAT EMUL IV SCH (17:00)
[2020-04-01] MEDS ORDERED: LORazepam 2 MG/ML, 1ML ONE (17:59)
[2020-04-01] MEDS: SCOPOLAMINE 1MG PATCH TD SCH (18:06)
[2020-04-01] MEDS: FILTER, DISP 1.2 MICRON FOR TPN/PVN IV PRN (18:25)
[2020-04-01 19:48] VITALS: BP 106/73
[2020-04-01] MEDS: INSULIN REGULAR MEDIUM DOSE QDAY SQ-INSULIN SCH (21:00)
[2020-04-02] MEDS: LORazepam INTENSOL 2 MG/ML PO SCH ×4 (00:30→18:03)
[2020-04-02] MEDS: HYDROmorphone 1 MG/ML, 1ML INJ IV PRN ×4 (00:30→21:12)
[2020-04-02 00:31] VITALS: BP 121/83
[2020-04-02] MEDS: DIPHENHYDRAMINE 12.5MG/5ML, 10ML UDC PO SCH ×4 (03:33→21:19)
[2020-04-02] MEDS: PROCHLORPERAZINE 5 MG/ML, 2ML IVPush PRN (05:30)
[2020-04-02 06:27] LABS: ANION GAP 5 mmol/L (5-15); CALCIUM 9.3 mg/dL (8.5-10.1); CHLORIDE 103 mmol/L (98-107)
[2020-04-02 06:28] LABS: CREATININE 1.03 mg/dL (0.55-1.02)
[2020-04-02 06:42] VITALS: BP 96/65
[2020-04-02] MEDS: ASPIRIN 325 MG TABLET EC PO SCH (06:46)
[2020-04-02] MEDS: OPIUM TINCTURE 1% 10 MG/ML ORAL.SOL PO SCH ×3 (09:43→21:12)
[2020-04-02 12:32] VITALS: BP 103/62
[2020-04-02] MEDS: DIPHENHYDRAMINE 50 MG/ML, 1ML IVPush PRN ×2 (15:50→22:00)
[2020-04-02] MEDS: FILTER, DISP 1.2 MICRON FOR TPN/PVN IV PRN (16:17)
[2020-04-02] MEDS ORDERED: AMINO ACID 10% IV SCH (17:00)
[2020-04-02] MEDS ORDERED: DEXTROSE 70% IV SCH (17:00)
[2020-04-02] MEDS ORDERED: SMOF TPN IV SCH (17:00)
[2020-04-02] MEDS ORDERED: FAT EMUL IV SCH (17:00)
[2020-04-02] MEDS ORDERED: [UNRECOGNIZED DRUG - OTHER] IV SCH (17:00)
[2020-04-02 18:58] VITALS: BP 109/74
[2020-04-02] MEDS: INSULIN REGULAR MEDIUM DOSE QDAY SQ-INSULIN SCH (21:19)
[2020-04-03] MEDS: LORazepam INTENSOL 2 MG/ML PO SCH ×4 (00:04→19:34)
[2020-04-03] MEDS: LACTATED RINGERS 1,000 ML IV SCH (00:05)
[2020-04-03 01:12] VITALS: BP 120/80
[2020-04-03] MEDS: DIPHENHYDRAMINE 12.5MG/5ML, 10ML UDC PO SCH ×4 (02:51→21:00)
[2020-04-03] MEDS: HYDROmorphone 1 MG/ML, 1ML INJ IV PRN ×5 (03:01→21:56)
[2020-04-03] MEDS: DIPHENHYDRAMINE 50 MG/ML, 1ML IVPush PRN ×4 (04:15→21:57)
[2020-04-03] MEDS: ASPIRIN 325 MG TABLET EC PO SCH (06:17)
[2020-04-03 06:56] VITALS: BP 96/69
[2020-04-03] MEDS: OPIUM TINCTURE 1% 10 MG/ML ORAL.SOL PO SCH ×3 (09:53→21:56)
[2020-04-03 15:46] VITALS: BP 90/65
[2020-04-03] MEDS ORDERED: [UNRECOGNIZED DRUG - OTHER] IV SCH ×2 (17:00)
[2020-04-03] MEDS ORDERED: DEXTROSE 70% IV SCH ×2 (17:00)
[2020-04-03] MEDS ORDERED: AMINO ACID 10% IV SCH ×2 (17:00)
[2020-04-03] MEDS ORDERED: TPN PER PHARMACY MC PRN (17:00)
[2020-04-03] MEDS ORDERED: FAT EMUL IV SCH ×2 (17:00)
[2020-04-03] MEDS ORDERED: FILTER, DISP 1.2 MICRON FOR TPN/PVN IV PRN (17:00)
[2020-04-03] MEDS ORDERED: SMOF TPN IV SCH ×2 (17:00)
[2020-04-03 19:17] VITALS: BP 121/85
[2020-04-03] MEDS: INSULIN REGULAR MEDIUM DOSE QDAY SQ-INSULIN SCH (21:00)
[2020-04-04] MEDS: LORazepam INTENSOL 2 MG/ML PO SCH ×4 (01:52→22:21)
[2020-04-04 01:53] VITALS: BP 125/87
[2020-04-04] MEDS: HYDROmorphone 1 MG/ML, 1ML INJ IV PRN ×5 (01:53→22:21)
[2020-04-04] MEDS: DIPHENHYDRAMINE 12.5MG/5ML, 10ML UDC PO SCH ×3 (03:00→18:17)
[2020-04-04] MEDS: DIPHENHYDRAMINE 50 MG/ML, 1ML IVPush PRN ×3 (04:04→18:17)
[2020-04-04] MEDS: ASPIRIN 325 MG TABLET EC PO SCH (06:26)
[2020-04-04 08:42] VITALS: BP 96/62
[2020-04-04] MEDS: OPIUM TINCTURE 1% 10 MG/ML ORAL.SOL PO SCH ×3 (09:41→22:21)
[2020-04-04] MEDS: PROCHLORPERAZINE 5 MG/ML, 2ML IVPush PRN (11:16)
[2020-04-04 11:22] VITALS: BP 115/75
[2020-04-04 11:52] LABS: BASOPHILS % (AUTO) 0 % (0-1); EOSINOPHILS % (AUTO) 0 % (1-7); LYMPHOCYTES % (AUTO) 6 % (22-44); MEAN CORPUSCULAR HEMOGLOBIN 31.3 pg (27.0-34.8); MEAN CORPUSCULAR HGB CONC 34.1 g/dL (32.4-35.8); MEAN PLATELET VOLUME 8.7 fL (7.4-10.4); MONOCYTES % (AUTO) 4 % (2-9); NEUTROPHILS % (AUTO) 89 % (42-75); PLATELET COUNT 283 x10^3/uL (130-400); RED BLOOD COUNT 2.76 x10^6/uL (3.82-5.3); RED CELL DISTRIBUTION WIDTH 13.1 % (9.6-15.2)
[2020-04-04 12:03] LABS: ANION GAP 6 mmol/L (5-15); CALCIUM 9.1 mg/dL (8.5-10.1); CHLORIDE 104 mmol/L (98-107); CREATININE 1.06 mg/dL (0.55-1.02)
[2020-04-04 12:18] LABS: MD NO
[2020-04-04 13:50] VITALS: BP 115/81
[2020-04-04] MEDS ORDERED: ACETAMINOPHEN 650 MG/20.3 ML UDC ONE (14:41)
[2020-04-04] MEDS: ACETAMINOPHEN 325 MG TABLET PO PRN (14:46)
[2020-04-04] MEDS ORDERED: LORazepam 2 MG/ML, 1ML ONE (15:20)
[2020-04-04] MEDS: PIPERACILLIN/TAZO/PMX 3.375GM 50 ML IV SCH ×2 (15:27→22:21)
[2020-04-04] MEDS: SCOPOLAMINE 1MG PATCH TD SCH (15:28)
[2020-04-04 15:41] LABS: MICROSCOPIC INDICATED
[2020-04-04 19:55] VITALS: BP 79/56
[2020-04-04 21:25] VITALS: BP 108/69
[2020-04-05] MEDS: DIPHENHYDRAMINE 12.5MG/5ML, 10ML UDC PO SCH ×4 (01:00→19:45)
[2020-04-05] MEDS: DIPHENHYDRAMINE 50 MG/ML, 1ML IVPush PRN ×4 (01:07→20:16)
[2020-04-05 01:15] VITALS: BP 91/64
[2020-04-05] MEDS: ACETAMINOPHEN 325 MG TABLET PO PRN (01:28)
[2020-04-05] MEDS: PIPERACILLIN/TAZO/PMX 3.375GM 50 ML IV SCH ×4 (03:25→20:16)
[2020-04-05] MEDS: ASPIRIN 325 MG TABLET EC PO SCH (05:15)
[2020-04-05] MEDS: HYDROmorphone 1 MG/ML, 1ML INJ IV PRN ×3 (05:15→20:36)
[2020-04-05] MEDS: LORazepam INTENSOL 2 MG/ML PO SCH ×3 (05:15→17:39)
[2020-04-05 06:54] LABS: BASOPHILS % (AUTO) 0 % (0-1); EOSINOPHILS % (AUTO) 1 % (1-7); LYMPHOCYTES % (AUTO) 4 % (22-44); MEAN CORPUSCULAR HEMOGLOBIN 31.8 pg (27.0-34.8); MEAN CORPUSCULAR HGB CONC 33.8 g/dL (32.4-35.8); MEAN PLATELET VOLUME 9.6 fL (7.4-10.4); MONOCYTES % (AUTO) 6 % (2-9); NEUTROPHILS % (AUTO) 90 % (42-75); PLATELET COUNT 246 x10^3/uL (130-400); RED BLOOD COUNT 2.31 x10^6/uL (3.82-5.3); RED CELL DISTRIBUTION WIDTH 13.2 % (9.6-15.2)
[2020-04-05 07:01] LABS: ALBUMIN 1.9 g/dL (3.4-5.0); ANION GAP 9 mmol/L (5-15); CALCIUM 8.5 mg/dL (8.5-10.1); CHLORIDE 102 mmol/L (98-107)
[2020-04-05 07:18] LABS: MD SCAN
[2020-04-05 07:26] LABS: ALANINE AMINOTRANSFERASE 60 U/L (12-78); ALKALINE PHOSPHATASE 570 U/L (45-117); BILIRUBIN,TOTAL 1.4 mg/dL (0.2-1.0); CREATININE 1.56 mg/dL (0.55-1.02); PREALBUMIN 14.1 mg/dL (20.0-40.0); TOTAL PROTEIN 6.4 g/dL (6.4-8.2)
[2020-04-05 07:43] VITALS: BP 82/42
[2020-04-05 07:57] VITALS: BP 80/51
[2020-04-05] MEDS ORDERED: SODIUM CHLORIDE 0.9% 1,000ML IVBOLUS ONE (08:30)
[2020-04-05] MEDS: D5%-0.45NACL+KCL 20MEQ 1,000 ML IV SCH ×2 (09:35→17:57)
[2020-04-05 09:45] VITALS: BP 91/50
[2020-04-05] MEDS: OPIUM TINCTURE 1% 10 MG/ML ORAL.SOL PO SCH ×3 (09:48→20:16)
[2020-04-05 12:19] VITALS: BP 92/62
[2020-04-05] MEDS: CYCLOBENZAPRINE 10 MG TABLET PO PRN (15:23)
[2020-04-05 18:49] VITALS: BP 95/71
[2020-04-06] VITALS (11 sets, daily range): BP systolic 79–127; BP diastolic 50–94
[2020-04-06] MEDS: CYCLOBENZAPRINE 10 MG TABLET PO PRN (00:02)
[2020-04-06] MEDS: LORazepam INTENSOL 2 MG/ML PO SCH ×5 (00:02→23:24)
[2020-04-06] MEDS: DIPHENHYDRAMINE 12.5MG/5ML, 10ML UDC PO SCH ×4 (01:11→19:00)
[2020-04-06] MEDS: HYDROmorphone 1 MG/ML, 1ML INJ IV PRN ×6 (01:12→22:23)
[2020-04-06] MEDS: DIPHENHYDRAMINE 50 MG/ML, 1ML IVPush PRN ×4 (02:24→21:44)
[2020-04-06] MEDS: PIPERACILLIN/TAZO/PMX 3.375GM 50 ML IV SCH ×4 (02:29→21:15)
[2020-04-06] MEDS: D5%-0.45NACL+KCL 20MEQ 1,000 ML IV SCH ×2 (06:11→15:26)
[2020-04-06] MEDS: ASPIRIN 325 MG TABLET EC PO SCH (06:11)
[2020-04-06 06:23] LABS: ANION GAP 7 mmol/L (5-15); CHLORIDE 107 mmol/L (98-107); CREATININE 1.66 mg/dL (0.55-1.02)
[2020-04-06 06:48] LABS: BASOPHILS % (AUTO) 0 % (0-1); EOSINOPHILS % (AUTO) 1 % (1-7); LYMPHOCYTES % (AUTO) 6 % (22-44); MEAN CORPUSCULAR HEMOGLOBIN 31.9 pg (27.0-34.8); MEAN CORPUSCULAR HGB CONC 34.1 g/dL (32.4-35.8); MEAN PLATELET VOLUME 9.9 fL (7.4-10.4); MONOCYTES % (AUTO) 7 % (2-9); NEUTROPHILS % (AUTO) 85 % (42-75); PLATELET COUNT 210 x10^3/uL (130-400); RED BLOOD COUNT 2.02 x10^6/uL (3.82-5.3); RED CELL DISTRIBUTION WIDTH 12.8 % (9.6-15.2)
[2020-04-06 07:01] LABS: MD NO
[2020-04-06] MEDS: OPIUM TINCTURE 1% 10 MG/ML ORAL.SOL PO SCH ×3 (09:26→21:44)
[2020-04-06] MEDS ORDERED: LORazepam 0.5MG TABLET ONE (11:17)
[2020-04-06] MEDS ORDERED: NYSTATIN 500,000 UNITS/5 ML UDC ONE (16:31)
[2020-04-06] MEDS: NYSTATIN 500,000 UNITS/5 ML UDC PO SCH ×2 (16:32→21:44)
[2020-04-07] MEDS: D5%-0.45NACL+KCL 20MEQ 1,000 ML IV SCH ×2 (00:30→11:27)
[2020-04-07] MEDS: DIPHENHYDRAMINE 12.5MG/5ML, 10ML UDC PO SCH ×4 (01:00→19:00)
[2020-04-07 02:10] VITALS: BP 122/93
[2020-04-07] MEDS: HYDROmorphone 1 MG/ML, 1ML INJ IV PRN ×5 (02:36→19:56)
[2020-04-07] MEDS: PIPERACILLIN/TAZO/PMX 3.375GM 50 ML IV SCH ×4 (03:13→19:57)
[2020-04-07] MEDS: DIPHENHYDRAMINE 50 MG/ML, 1ML IVPush PRN ×3 (03:54→16:58)
[2020-04-07] MEDS: NYSTATIN 500,000 UNITS/5 ML UDC PO SCH ×5 (05:19→19:56)
[2020-04-07] MEDS: ASPIRIN 325 MG TABLET EC PO SCH (05:19)
[2020-04-07] MEDS: LORazepam INTENSOL 2 MG/ML PO SCH ×4 (05:39→23:00)
[2020-04-07 05:48] LABS: BASOPHILS % (AUTO) 1 % (0-1); EOSINOPHILS % (AUTO) 2 % (1-7); LYMPHOCYTES % (AUTO) 10 % (22-44); MEAN CORPUSCULAR HEMOGLOBIN 30.6 pg (27.0-34.8); MEAN PLATELET VOLUME 9.5 fL (7.4-10.4); MONOCYTES % (AUTO) 8 % (2-9); NEUTROPHILS % (AUTO) 80 % (42-75); PLATELET COUNT 291 x10^3/uL (130-400); RED BLOOD COUNT 3.59 x10^6/uL (3.82-5.3); RED CELL DISTRIBUTION WIDTH 16.1 % (9.6-15.2)
[2020-04-07 05:50] LABS: MD NO
[2020-04-07 06:02] LABS: ALANINE AMINOTRANSFERASE 36 U/L (12-78); ANION GAP 8 mmol/L (5-15); CALCIUM 8.8 mg/dL (8.5-10.1); CHLORIDE 107 mmol/L (98-107); CREATININE 1.31 mg/dL (0.55-1.02)
[2020-04-07 06:04] LABS: ALKALINE PHOSPHATASE 401 U/L (45-117); BILIRUBIN,TOTAL 1.3 mg/dL (0.2-1.0)
[2020-04-07 07:58] VITALS: BP 117/82
[2020-04-07] MEDS ORDERED: POTASSIUM CHLORIDE 40 MEQ in SODIUM CHLORIDE 0.9% 100 ML IV ONE (09:00)
[2020-04-07] MEDS ORDERED: MAGNESIUM SULFATE PMX 2GM/50ML 50 ML IV ONE (09:00)
[2020-04-07] MEDS: OPIUM TINCTURE 1% 10 MG/ML ORAL.SOL PO SCH ×3 (10:13→19:56)
[2020-04-07 12:10] VITALS: BP 131/90
[2020-04-07] MEDS: SCOPOLAMINE 1MG PATCH TD SCH (16:58)
[2020-04-07 18:49] VITALS: BP 124/86
[2020-04-08 00:02] VITALS: BP 121/87
[2020-04-08] MEDS: HYDROmorphone 1 MG/ML, 1ML INJ IV PRN ×6 (00:09→23:55)
[2020-04-08] MEDS: DIPHENHYDRAMINE 50 MG/ML, 1ML IVPush PRN ×5 (00:09→23:55)
[2020-04-08] MEDS: D5%-0.45NACL+KCL 20MEQ 1,000 ML IV SCH ×3 (00:14→23:55)
[2020-04-08] MEDS: DIPHENHYDRAMINE 12.5MG/5ML, 10ML UDC PO SCH ×5 (01:00→18:13)
[2020-04-08] MEDS: PIPERACILLIN/TAZO/PMX 3.375GM 50 ML IV SCH ×4 (03:58→21:19)
[2020-04-08] MEDS: NYSTATIN 500,000 UNITS/5 ML UDC PO SCH ×4 (05:36→21:19)
[2020-04-08] MEDS: LORazepam INTENSOL 2 MG/ML PO SCH ×4 (05:37→22:55)
[2020-04-08] MEDS: ASPIRIN 325 MG TABLET EC PO SCH (05:37)
[2020-04-08 06:09] LABS: BASOPHILS % (AUTO) 1 % (0-1); EOSINOPHILS % (AUTO) 3 % (1-7); LYMPHOCYTES % (AUTO) 8 % (22-44); MEAN CORPUSCULAR HEMOGLOBIN 30.7 pg (27.0-34.8); MEAN CORPUSCULAR HGB CONC 34.3 g/dL (32.4-35.8); MEAN PLATELET VOLUME 8.9 fL (7.4-10.4); MONOCYTES % (AUTO) 9 % (2-9); NEUTROPHILS % (AUTO) 80 % (42-75); PLATELET COUNT 325 x10^3/uL (130-400); RED BLOOD COUNT 3.82 x10^6/uL (3.82-5.3); RED CELL DISTRIBUTION WIDTH 14.8 % (9.6-15.2)
[2020-04-08 06:10] LABS: MD NO
[2020-04-08 06:18] LABS: ALBUMIN 2.2 g/dL (3.4-5.0); ANION GAP 7 mmol/L (5-15); CHLORIDE 102 mmol/L (98-107)
[2020-04-08 06:21] LABS: ALANINE AMINOTRANSFERASE 37 U/L (12-78); ALKALINE PHOSPHATASE 492 U/L (45-117); BILIRUBIN,TOTAL 1.2 mg/dL (0.2-1.0); CREATININE 1.63 mg/dL (0.55-1.02); TOTAL PROTEIN 7.7 g/dL (6.4-8.2)
[2020-04-08 06:24] VITALS: BP 112/80
[2020-04-08] MEDS: OPIUM TINCTURE 1% 10 MG/ML ORAL.SOL PO SCH ×3 (10:13→21:19)
[2020-04-08 12:23] VITALS: BP 101/68
[2020-04-08 19:04] VITALS: BP 108/76
[2020-04-09] MEDS: DIPHENHYDRAMINE 12.5MG/5ML, 10ML UDC PO SCH ×4 (01:00→17:04)
[2020-04-09 01:35] VITALS: BP 105/73
[2020-04-09] MEDS: HYDROmorphone 1 MG/ML, 1ML INJ IV PRN ×4 (03:28→21:50)
[2020-04-09] MEDS: PIPERACILLIN/TAZO/PMX 3.375GM 50 ML IV SCH ×4 (03:28→20:39)
[2020-04-09] MEDS: ASPIRIN 325 MG TABLET EC PO SCH (05:11)
[2020-04-09] MEDS: DIPHENHYDRAMINE 50 MG/ML, 1ML IVPush PRN ×4 (05:24→23:08)
[2020-04-09] MEDS: LORazepam INTENSOL 2 MG/ML PO SCH ×4 (05:24→23:08)
[2020-04-09] MEDS: NYSTATIN 500,000 UNITS/5 ML UDC PO SCH ×4 (05:25→20:38)
[2020-04-09] MEDS: D5%-0.45NACL+KCL 20MEQ 1,000 ML IV SCH ×2 (08:10→23:10)
[2020-04-09] MEDS ORDERED: CHLORHEXIDINE 15 ML UDC ONE (08:35)
[2020-04-09] MEDS: OPIUM TINCTURE 1% 10 MG/ML ORAL.SOL PO SCH ×3 (09:00→20:38)
[2020-04-09] MEDS ORDERED: SIMETHICONE DROPS 40 MG/0.6 ML BOTTLE ONE (09:39)
[2020-04-09] MEDS ORDERED: PROPOFOL 10 MG/ML, 20ML ONE (10:09)
[2020-04-09] MEDS ORDERED: SUCCINYLCHOLINE 20 MG/ML, 10ML ONE (10:09)
[2020-04-09] MEDS ORDERED: ROCURONIUM 10 MG/ML,10ML ONE (10:09)
[2020-04-09] MEDS ORDERED: DEXAMETHASONE 4 MG/ML, 1ML ONE (10:09)
[2020-04-09] MEDS ORDERED: ONDANSETRON 2MG/ML, 2ML ONE (10:09)
[2020-04-09] MEDS ORDERED: hydrALAzine 20 MG/ML, 1ML IV PRN (10:30)
[2020-04-09] MEDS ORDERED: PROMETHAZINE 25 MG/ML, 1ML IV PRN (10:30)
[2020-04-09] MEDS ORDERED: OXYcodone 5 MG/5 ML ORAL.SOL UDC PO PRN (10:30)
[2020-04-09] MEDS ORDERED: HYDROmorphone 2 MG/ML, 1ML IVPush PRN (10:30)
[2020-04-09] MEDS ORDERED: DIAZEPAM 5 MG/ML, 2ML IVPush PRN (10:30)
[2020-04-09] MEDS ORDERED: MEPERIDINE/PF 25MG/0.5ML IVPush PRN (10:30)
[2020-04-09] MEDS ORDERED: ALBUTEROL SULFATE 2.5 MG/3 ML NPPB PRN (10:30)
[2020-04-09] MEDS ORDERED: FENTANYL PF 100 MCG/2ML IV PRN (10:30)
[2020-04-09] MEDS ORDERED: LABETALOL 5MG/ML, 20ML IV PRN (10:30)
[2020-04-09] MEDS ORDERED: KETOROLAC 30 MG/1 ML IV PRN (10:30)
[2020-04-09] MEDS ORDERED: ACETAMINOPHEN 325 MG TABLET PO PRN (10:30)
[2020-04-09 11:59] VITALS: BP 122/90
[2020-04-09] MEDS ORDERED: MAGNESIUM SULFATE/D5W 100 ML IVPB ONE (12:00)
[2020-04-09] MEDS ORDERED: POTASSIUM CHLORIDE 10 MEQ in SODIUM CHLORIDE 0.9% 250 ML IV ONE (12:00)
[2020-04-09] MEDS ORDERED: SODIUM CHLORIDE 0.9% 1,000ML IVBOLUS ONE (18:30)
[2020-04-09 18:40] VITALS: BP 98/65
[2020-04-10 00:33] VITALS: BP 112/87
[2020-04-10] MEDS: DIPHENHYDRAMINE 12.5MG/5ML, 10ML UDC PO SCH ×5 (00:42→23:11)
[2020-04-10] MEDS: HYDROmorphone 1 MG/ML, 1ML INJ IV PRN ×5 (02:12→23:09)
[2020-04-10] MEDS: PIPERACILLIN/TAZO/PMX 3.375GM 50 ML IV SCH ×4 (03:09→20:58)
[2020-04-10] MEDS: LORazepam INTENSOL 2 MG/ML PO SCH ×4 (04:46→23:09)
[2020-04-10] MEDS: DIPHENHYDRAMINE 50 MG/ML, 1ML IVPush PRN ×4 (04:49→21:50)
[2020-04-10] MEDS: ASPIRIN 325 MG TABLET EC PO SCH (05:39)
[2020-04-10] MEDS: NYSTATIN 500,000 UNITS/5 ML UDC PO SCH ×4 (05:39→20:58)
[2020-04-10] MEDS: D5%-0.45NACL+KCL 20MEQ 1,000 ML IV SCH ×4 (05:40→21:55)
[2020-04-10 05:53] LABS: BASOPHILS % (AUTO) 1 % (0-1); EOSINOPHILS % (AUTO) 0 % (1-7); LYMPHOCYTES % (AUTO) 8 % (22-44); MEAN CORPUSCULAR HEMOGLOBIN 30.5 pg (27.0-34.8); MEAN CORPUSCULAR HGB CONC 34.2 g/dL (32.4-35.8); MEAN PLATELET VOLUME 8.7 fL (7.4-10.4); MONOCYTES % (AUTO) 8 % (2-9); NEUTROPHILS % (AUTO) 83 % (42-75); PLATELET COUNT 364 x10^3/uL (130-400); RED BLOOD COUNT 4.01 x10^6/uL (3.82-5.3); RED CELL DISTRIBUTION WIDTH 14.8 % (9.6-15.2)
[2020-04-10 05:59] LABS: MD NO
[2020-04-10 06:04] LABS: ANION GAP 7 mmol/L (5-15); CALCIUM 8.6 mg/dL (8.5-10.1); CHLORIDE 106 mmol/L (98-107)
[2020-04-10 06:06] LABS: CREATININE 1.37 mg/dL (0.55-1.02)
[2020-04-10 08:05] VITALS: BP 123/90
[2020-04-10] MEDS: OPIUM TINCTURE 1% 10 MG/ML ORAL.SOL PO SCH ×3 (10:01→20:58)
[2020-04-10 13:32] VITALS: BP 104/72
[2020-04-10] MEDS: CYCLOBENZAPRINE 10 MG TABLET PO PRN (15:20)
[2020-04-10] MEDS: SCOPOLAMINE PATCH, 1.5MG PATCH.TD72 TD SCH (16:09)
[2020-04-10 18:20] VITALS: BP 114/83
[2020-04-10] MEDS: hydrOXyzine 10MG TABLET PO SCH (21:53)
[2020-04-11 00:30] VITALS: BP 102/91
[2020-04-11] MEDS: HYDROmorphone 1 MG/ML, 1ML INJ IV PRN ×5 (03:09→23:44)
[2020-04-11] MEDS: PIPERACILLIN/TAZO/PMX 3.375GM 50 ML IV SCH ×4 (03:09→20:50)
[2020-04-11] MEDS: D5%-0.45NACL+KCL 20MEQ 1,000 ML IV SCH ×3 (04:37→21:45)
[2020-04-11] MEDS: DIPHENHYDRAMINE 50 MG/ML, 1ML IVPush PRN ×4 (04:37→23:00)
[2020-04-11] MEDS: LORazepam INTENSOL 2 MG/ML PO SCH ×4 (05:23→23:00)
[2020-04-11] MEDS: ASPIRIN 325 MG TABLET EC PO SCH (05:23)
[2020-04-11] MEDS: NYSTATIN 500,000 UNITS/5 ML UDC PO SCH ×4 (05:23→20:51)
[2020-04-11 05:45] LABS: BASOPHILS % (AUTO) 0 % (0-1); EOSINOPHILS % (AUTO) 2 % (1-7); LYMPHOCYTES % (AUTO) 7 % (22-44); MEAN CORPUSCULAR HEMOGLOBIN 30.3 pg (27.0-34.8); MEAN CORPUSCULAR HGB CONC 33.7 g/dL (32.4-35.8); MEAN PLATELET VOLUME 8.7 fL (7.4-10.4); MONOCYTES % (AUTO) 7 % (2-9); NEUTROPHILS % (AUTO) 84 % (42-75); PLATELET COUNT 348 x10^3/uL (130-400); RED CELL DISTRIBUTION WIDTH 14.6 % (9.6-15.2)
[2020-04-11 05:47] LABS: ALANINE AMINOTRANSFERASE 65 U/L (12-78); ANION GAP 7 mmol/L (5-15); CALCIUM 8.7 mg/dL (8.5-10.1); CHLORIDE 109 mmol/L (98-107); CREATININE 1.56 mg/dL (0.55-1.02)
[2020-04-11 05:50] LABS: ALKALINE PHOSPHATASE 631 U/L (45-117); BILIRUBIN,TOTAL 1.1 mg/dL (0.2-1.0); TOTAL PROTEIN 7.5 g/dL (6.4-8.2)
[2020-04-11 05:54] LABS: MD NO
[2020-04-11] MEDS: DIPHENHYDRAMINE 12.5MG/5ML, 10ML UDC PO SCH ×3 (05:58→18:09)
[2020-04-11 09:01] VITALS: BP 125/88
[2020-04-11] MEDS: OPIUM TINCTURE 1% 10 MG/ML ORAL.SOL PO SCH ×3 (09:57→20:51)
[2020-04-11 13:18] VITALS: BP 111/82
[2020-04-11 19:11] VITALS: BP 118/87
[2020-04-11] MEDS: hydrOXyzine 10MG TABLET PO SCH (20:50)
[2020-04-12] MEDS: DIPHENHYDRAMINE 12.5MG/5ML, 10ML UDC PO SCH ×4 (01:00→18:40)
[2020-04-12] MEDS: PIPERACILLIN/TAZO/PMX 3.375GM 50 ML IV SCH ×4 (02:41→20:25)
[2020-04-12 02:44] VITALS: BP 114/80
[2020-04-12] MEDS: HYDROmorphone 1 MG/ML, 1ML INJ IV PRN ×4 (04:15→20:24)
[2020-04-12] MEDS: LORazepam INTENSOL 2 MG/ML PO SCH ×4 (05:16→23:25)
[2020-04-12] MEDS: NYSTATIN 500,000 UNITS/5 ML UDC PO SCH ×4 (05:16→20:25)
[2020-04-12] MEDS: ASPIRIN 325 MG TABLET EC PO SCH (05:16)
[2020-04-12] MEDS: DIPHENHYDRAMINE 50 MG/ML, 1ML IVPush PRN ×3 (05:16→18:54)
[2020-04-12 05:37] LABS: BASOPHILS % (AUTO) 1 % (0-1); EOSINOPHILS % (AUTO) 3 % (1-7); LYMPHOCYTES % (AUTO) 12 % (22-44); MEAN CORPUSCULAR HEMOGLOBIN 31.1 pg (27.0-34.8); MEAN CORPUSCULAR HGB CONC 34.3 g/dL (32.4-35.8); MEAN PLATELET VOLUME 8.4 fL (7.4-10.4); MONOCYTES % (AUTO) 7 % (2-9); NEUTROPHILS % (AUTO) 78 % (42-75); PLATELET COUNT 401 x10^3/uL (130-400); RED BLOOD COUNT 4.14 x10^6/uL (3.82-5.3); RED CELL DISTRIBUTION WIDTH 14.6 % (9.6-15.2)
[2020-04-12 05:45] LABS: CHLORIDE 103 mmol/L (98-107)
[2020-04-12 06:06] LABS: MD NO
[2020-04-12 06:16] LABS: ALANINE AMINOTRANSFERASE 50 U/L (12-78); ALBUMIN 2.4 g/dL (3.4-5.0); ALKALINE PHOSPHATASE 543 U/L (45-117); ANION GAP 10 mmol/L (5-15); BILIRUBIN,TOTAL 0.8 mg/dL (0.2-1.0); CALCIUM 9.5 mg/dL (8.5-10.1); CREATININE 1.75 mg/dL (0.55-1.02); PREALBUMIN 18.1 mg/dL (20.0-40.0); TOTAL PROTEIN 8.7 g/dL (6.4-8.2)
[2020-04-12 06:25] VITALS: BP 102/72
[2020-04-12] MEDS: OPIUM TINCTURE 1% 10 MG/ML ORAL.SOL PO SCH ×3 (09:32→20:25)
[2020-04-12] MEDS: D5%-0.45NACL+KCL 20MEQ 1,000 ML IV SCH ×2 (09:32→20:25)
[2020-04-12 13:35] VITALS: BP 92/68
[2020-04-12] MEDS ORDERED: SODIUM CHLORIDE 0.9% 1,000 ML IV SCH (15:30)
[2020-04-12] MEDS ORDERED: MAGNESIUM SULFATE PMX 2GM/50ML 50 ML IV ONE (16:00)
[2020-04-12 20:20] VITALS: BP 102/69
[2020-04-12] MEDS: FAMOTIDINE 20 MG/2 ML IVPush SCH (20:25)
[2020-04-12] MEDS: hydrOXyzine 10MG TABLET PO SCH (20:25)
[2020-04-13] MEDS: DIPHENHYDRAMINE 12.5MG/5ML, 10ML UDC PO SCH ×4 (01:00→18:50)
[2020-04-13] MEDS: PIPERACILLIN/TAZO/PMX 3.375GM 50 ML IV SCH ×4 (02:59→21:28)
[2020-04-13 03:00] VITALS: BP 98/62
[2020-04-13] MEDS: HYDROmorphone 1 MG/ML, 1ML INJ IV PRN ×5 (03:14→22:17)
[2020-04-13] MEDS: DIPHENHYDRAMINE 50 MG/ML, 1ML IVPush PRN ×3 (05:12→18:37)
[2020-04-13] MEDS: LORazepam INTENSOL 2 MG/ML PO SCH ×4 (05:12→23:06)
[2020-04-13] MEDS: NYSTATIN 500,000 UNITS/5 ML UDC PO SCH ×4 (05:12→21:28)
[2020-04-13] MEDS: ASPIRIN 325 MG TABLET EC PO SCH (05:12)
[2020-04-13 05:21] LABS: BASOPHILS % (AUTO) 1 % (0-1); EOSINOPHILS % (AUTO) 4 % (1-7); LYMPHOCYTES % (AUTO) 12 % (22-44); MEAN CORPUSCULAR HEMOGLOBIN 30.7 pg (27.0-34.8); MEAN CORPUSCULAR HGB CONC 34.4 g/dL (32.4-35.8); MEAN PLATELET VOLUME 8.3 fL (7.4-10.4); MONOCYTES % (AUTO) 8 % (2-9); NEUTROPHILS % (AUTO) 76 % (42-75); PLATELET COUNT 431 x10^3/uL (130-400); RED BLOOD COUNT 4.04 x10^6/uL (3.82-5.3); RED CELL DISTRIBUTION WIDTH 14.5 % (9.6-15.2)
[2020-04-13] MEDS: D5%-0.45NACL+KCL 20MEQ 1,000 ML IV SCH (05:23)
[2020-04-13 05:26] LABS: MD NO
[2020-04-13 05:27] LABS: ANION GAP 6 mmol/L (5-15); CALCIUM 8.9 mg/dL (8.5-10.1); CHLORIDE 103 mmol/L (98-107)
[2020-04-13 05:28] LABS: CREATININE 1.58 mg/dL (0.55-1.02)
[2020-04-13 07:01] VITALS: BP 100/75
[2020-04-13] MEDS ORDERED: TPN PER PHARMACY MC SCH (07:30)
[2020-04-13] MEDS: OPIUM TINCTURE 1% 10 MG/ML ORAL.SOL PO SCH ×3 (10:30→21:28)
[2020-04-13] MEDS: FAMOTIDINE 20 MG/2 ML IVPush SCH (10:30)
[2020-04-13 13:15] VITALS: BP 102/73
[2020-04-13] MEDS ORDERED: D5%-0.45NACL+KCL 20MEQ 1,000 ML IV SCH (15:00)
[2020-04-13] MEDS: SCOPOLAMINE PATCH, 1.5MG PATCH.TD72 TD SCH (15:41)
[2020-04-13] MEDS ORDERED: DEXTROSE 50%, 50ML SYRINGE IVPush PRN (17:00)
[2020-04-13] MEDS ORDERED: SMOF TPN IV SCH (17:00)
[2020-04-13] MEDS ORDERED: DEXTROSE 10% 500 ML IV PRN (17:00)
[2020-04-13] MEDS ORDERED: [UNRECOGNIZED DRUG - OTHER] IV SCH (17:00)
[2020-04-13] MEDS ORDERED: FILTER, DISP 1.2 MICRON FOR TPN/PVN IV SCH (17:00)
[2020-04-13] MEDS ORDERED: FAT EMUL IV SCH (17:00)
[2020-04-13] MEDS ORDERED: AMINO ACID 10% IV SCH (17:00)
[2020-04-13] MEDS ORDERED: DEXTROSE 70% IV SCH (17:00)
[2020-04-13] MEDS: D5%-0.45% NACL 1,000 ML IV SCH (18:43)
[2020-04-13 19:31] VITALS: BP 112/80
[2020-04-13] MEDS: hydrOXyzine 10MG TABLET PO SCH (21:28)
[2020-04-13] MEDS: INSULIN REGULAR LOW DOSE Q6H X 48HRS SQ-INSULIN SCH (21:53)
[2020-04-14 00:54] VITALS: BP 111/77
[2020-04-14] MEDS: DIPHENHYDRAMINE 12.5MG/5ML, 10ML UDC PO SCH ×4 (01:00→19:00)
[2020-04-14] MEDS: DIPHENHYDRAMINE 50 MG/ML, 1ML IVPush PRN ×4 (01:04→19:18)
[2020-04-14] MEDS: INSULIN REGULAR LOW DOSE Q6H X 48HRS SQ-INSULIN SCH ×4 (03:00→20:55)
[2020-04-14] MEDS: PIPERACILLIN/TAZO/PMX 3.375GM 50 ML IV SCH ×4 (03:27→22:57)
[2020-04-14] MEDS: HYDROmorphone 1 MG/ML, 1ML INJ IV PRN ×4 (03:38→20:11)
[2020-04-14 03:59] LABS: ALANINE AMINOTRANSFERASE 43 U/L (12-78); ALBUMIN 2.2 g/dL (3.4-5.0); ANION GAP 9 mmol/L (5-15); CALCIUM 8.9 mg/dL (8.5-10.1); CHLORIDE 104 mmol/L (98-107); CREATININE 1.63 mg/dL (0.55-1.02); TRIGLYCERIDES 345 mg/dL (50-200)
[2020-04-14 04:02] LABS: ALKALINE PHOSPHATASE 409 U/L (45-117); BILIRUBIN,TOTAL 0.6 mg/dL (0.2-1.0); TOTAL PROTEIN 8.3 g/dL (6.4-8.2)
[2020-04-14] MEDS: ASPIRIN 325 MG TABLET EC PO SCH (05:49)
[2020-04-14] MEDS: NYSTATIN 500,000 UNITS/5 ML UDC PO SCH ×4 (05:49→21:03)
[2020-04-14] MEDS: LORazepam INTENSOL 2 MG/ML PO SCH ×4 (05:49→23:00)
[2020-04-14 06:39] VITALS: BP 109/76
[2020-04-14] MEDS: OPIUM TINCTURE 1% 10 MG/ML ORAL.SOL PO SCH ×3 (10:20→21:03)
[2020-04-14 12:14] VITALS: BP 105/73
[2020-04-14] MEDS ORDERED: FAT EMUL IV SCH (17:00)
[2020-04-14] MEDS ORDERED: FILTER, DISP 1.2 MICRON FOR TPN/PVN IV SCH (17:00)
[2020-04-14] MEDS ORDERED: SMOF TPN IV SCH (17:00)
[2020-04-14] MEDS ORDERED: DEXTROSE 70% IV SCH (17:00)
[2020-04-14] MEDS ORDERED: [UNRECOGNIZED DRUG - OTHER] IV SCH (17:00)
[2020-04-14] MEDS ORDERED: AMINO ACID 10% IV SCH (17:00)
[2020-04-14 18:35] VITALS: BP 108/77
[2020-04-14] MEDS: hydrOXyzine 10MG TABLET PO SCH (21:03)
[2020-04-15 00:19] VITALS: BP 112/80
[2020-04-15] MEDS: DIPHENHYDRAMINE 12.5MG/5ML, 10ML UDC PO SCH ×4 (01:08→19:11)
[2020-04-15] MEDS: DIPHENHYDRAMINE 50 MG/ML, 1ML IVPush PRN ×3 (01:12→13:39)
[2020-04-15] MEDS: HYDROmorphone 1 MG/ML, 1ML INJ IV PRN ×4 (01:59→21:12)
[2020-04-15] MEDS: INSULIN REGULAR LOW DOSE Q6H X 48HRS SQ-INSULIN SCH ×2 (03:00→09:00)
[2020-04-15] MEDS: PIPERACILLIN/TAZO/PMX 3.375GM 50 ML IV SCH ×3 (03:52→18:24)
[2020-04-15] MEDS: LORazepam INTENSOL 2 MG/ML PO SCH ×4 (05:22→23:08)
[2020-04-15] MEDS: NYSTATIN 500,000 UNITS/5 ML UDC PO SCH ×4 (05:49→21:01)
[2020-04-15] MEDS: ASPIRIN 325 MG TABLET EC PO SCH (05:49)
[2020-04-15 07:07] VITALS: BP 117/83
[2020-04-15] MEDS: INSULIN REGULAR MEDIUM DOSE QDAY SQ-INSULIN SCH (09:00)
[2020-04-15] MEDS: OPIUM TINCTURE 1% 10 MG/ML ORAL.SOL PO SCH ×3 (09:00→21:02)
[2020-04-15 12:11] VITALS: BP 116/83
[2020-04-15 13:25] LABS: ANION GAP 6 mmol/L (5-15); CALCIUM 9.7 mg/dL (8.5-10.1); CHLORIDE 100 mmol/L (98-107)
[2020-04-15 13:26] LABS: CREATININE 1.24 mg/dL (0.55-1.02)
[2020-04-15 13:31] LABS: BASOPHILS % (AUTO) 0 % (0-1); EOSINOPHILS % (AUTO) 4 % (1-7); LYMPHOCYTES % (AUTO) 11 % (22-44); MEAN CORPUSCULAR HEMOGLOBIN 30.5 pg (27.0-34.8); MEAN CORPUSCULAR HGB CONC 34.2 g/dL (32.4-35.8); MEAN PLATELET VOLUME 8.2 fL (7.4-10.4); MONOCYTES % (AUTO) 6 % (2-9); NEUTROPHILS % (AUTO) 79 % (42-75); PLATELET COUNT 431 x10^3/uL (130-400); RED BLOOD COUNT 4.05 x10^6/uL (3.82-5.3); RED CELL DISTRIBUTION WIDTH 14.4 % (9.6-15.2)
[2020-04-15 13:32] LABS: MD NO
[2020-04-15] MEDS ORDERED: CHLORHEXIDINE 15 ML UDC ONE (13:41)
[2020-04-15] MEDS ORDERED: PROPOFOL 10 MG/ML, 20ML ONE (14:42)
[2020-04-15] MEDS ORDERED: DEXAMETHASONE 4 MG/ML, 1ML ONE (14:42)
[2020-04-15] MEDS ORDERED: SUCCINYLCHOLINE 20 MG/ML, 10ML ONE (14:42)
[2020-04-15] MEDS ORDERED: ESMOLOL 100 MG/10 ML ONE (14:42)
[2020-04-15] MEDS ORDERED: ROCURONIUM 10 MG/ML,10ML ONE (14:42)
[2020-04-15] MEDS ORDERED: ONDANSETRON 2MG/ML, 2ML ONE (14:42)
[2020-04-15] MEDS ORDERED: [UNRECOGNIZED DRUG - OTHER] IV SCH (17:00)
[2020-04-15] MEDS ORDERED: AMINO ACID 10% IV SCH ×2 (17:00)
[2020-04-15] MEDS ORDERED: FAT EMUL IV SCH ×2 (17:00)
[2020-04-15] MEDS ORDERED: DEXTROSE 70% IV SCH ×2 (17:00)
[2020-04-15] MEDS ORDERED: FILTER, DISP 1.2 MICRON FOR TPN/PVN IV SCH (17:00)
[2020-04-15] MEDS ORDERED: SMOF TPN IV SCH ×2 (17:00)
[2020-04-15] MEDS ORDERED: [UNRECOGNIZED DRUG - OTHER] IV SCH (17:00)
[2020-04-15] MEDS ORDERED: HYDROmorphone 1 MG/ML, 1ML INJ ONE (17:27)
[2020-04-15] MEDS: HYDROmorphone 1 MG/ML, 1ML INJ IVPush PRN ×2 (17:35→17:40)
[2020-04-15 19:03] VITALS: BP 130/88
[2020-04-15] MEDS ORDERED: INSULIN REGULAR LOW DOSE QDAY SQ-INSULIN SCH (21:00)
[2020-04-15] MEDS: hydrOXyzine 10MG TABLET PO SCH (21:02)
[2020-04-16 00:11] VITALS: BP 130/85
[2020-04-16] MEDS: PIPERACILLIN/TAZO/PMX 3.375GM 50 ML IV SCH ×4 (00:28→18:34)
[2020-04-16] MEDS: DIPHENHYDRAMINE 12.5MG/5ML, 10ML UDC PO SCH ×4 (01:03→19:00)
[2020-04-16] MEDS: DIPHENHYDRAMINE 50 MG/ML, 1ML IVPush PRN ×4 (01:03→21:31)
[2020-04-16] MEDS: HYDROmorphone 1 MG/ML, 1ML INJ IV PRN ×6 (02:07→18:34)
[2020-04-16 03:46] VITALS: BP 127/90
[2020-04-16] MEDS: LORazepam INTENSOL 2 MG/ML PO SCH ×3 (04:39→17:20)
[2020-04-16 04:59] LABS: ANION GAP 7 mmol/L (5-15); CALCIUM 9.1 mg/dL (8.5-10.1); CHLORIDE 102 mmol/L (98-107); CREATININE 1.22 mg/dL (0.55-1.02)
[2020-04-16] MEDS: NYSTATIN 500,000 UNITS/5 ML UDC PO SCH ×4 (06:00→21:31)
[2020-04-16] MEDS: ASPIRIN 325 MG TABLET EC PO SCH (06:10)
[2020-04-16 06:26] VITALS: BP 133/93
[2020-04-16] MEDS: OPIUM TINCTURE 1% 10 MG/ML ORAL.SOL PO SCH ×3 (08:13→21:31)
[2020-04-16] MEDS: INSULIN REGULAR MEDIUM DOSE QDAY SQ-INSULIN SCH (08:14)
[2020-04-16] MEDS ORDERED: POTASSIUM PHOSPHATE 22 MEQ in SODIUM CHLORIDE 0.9% 250 ML IV ONE (12:00)
[2020-04-16 12:56] VITALS: BP 147/96
[2020-04-16] MEDS: SCOPOLAMINE PATCH, 1.5MG PATCH.TD72 TD SCH (15:47)
[2020-04-16] MEDS ORDERED: SMOF TPN IV SCH (17:00)
[2020-04-16] MEDS ORDERED: [UNRECOGNIZED DRUG - OTHER] IV SCH (17:00)
[2020-04-16] MEDS ORDERED: DEXTROSE 70% IV SCH (17:00)
[2020-04-16] MEDS ORDERED: AMINO ACID 10% IV SCH (17:00)
[2020-04-16] MEDS ORDERED: FAT EMUL IV SCH (17:00)
[2020-04-16] MEDS: FILTER, DISP 1.2 MICRON FOR TPN/PVN IV SCH (17:20)
[2020-04-16 18:35] VITALS: BP 147/97
[2020-04-16] MEDS: hydrOXyzine 10MG TABLET PO SCH (21:31)
[2020-04-17 00:02] VITALS: BP 145/89
[2020-04-17] MEDS: LORazepam INTENSOL 2 MG/ML PO SCH ×5 (00:24→23:55)
[2020-04-17] MEDS: PIPERACILLIN/TAZO/PMX 3.375GM 50 ML IV SCH ×5 (00:25→23:55)
[2020-04-17] MEDS: HYDROmorphone 1 MG/ML, 1ML INJ IV PRN ×9 (00:25→22:50)
[2020-04-17] MEDS: DIPHENHYDRAMINE 12.5MG/5ML, 10ML UDC PO SCH ×4 (00:25→19:00)
[2020-04-17] MEDS: DIPHENHYDRAMINE 50 MG/ML, 1ML IVPush PRN ×4 (04:44→21:56)
[2020-04-17 05:15] LABS: ANION GAP 8 mmol/L (5-15); CALCIUM 9.1 mg/dL (8.5-10.1); CHLORIDE 106 mmol/L (98-107); CREATININE 0.91 mg/dL (0.55-1.02)
[2020-04-17] MEDS: NYSTATIN 500,000 UNITS/5 ML UDC PO SCH ×4 (06:00→21:56)
[2020-04-17 06:54] VITALS: BP 142/97
[2020-04-17] MEDS: INSULIN REGULAR MEDIUM DOSE QDAY SQ-INSULIN SCH (07:03)
[2020-04-17] MEDS: OPIUM TINCTURE 1% 10 MG/ML ORAL.SOL PO SCH ×3 (08:16→21:56)
[2020-04-17] MEDS: ASPIRIN 325 MG TABLET EC PO SCH (08:16)
[2020-04-17 13:15] VITALS: BP 138/92
[2020-04-17] MEDS: FILTER, DISP 1.2 MICRON FOR TPN/PVN IV SCH (16:28)
[2020-04-17] MEDS: D5%-0.45% NACL 1,000 ML IV SCH (16:28)
[2020-04-17] MEDS ORDERED: DEXTROSE 70% IV SCH (17:00)
[2020-04-17] MEDS ORDERED: [UNRECOGNIZED DRUG - OTHER] IV SCH (17:00)
[2020-04-17] MEDS ORDERED: SMOF TPN IV SCH (17:00)
[2020-04-17] MEDS ORDERED: FAT EMUL IV SCH (17:00)
[2020-04-17] MEDS ORDERED: AMINO ACID 10% IV SCH (17:00)
[2020-04-17 19:13] VITALS: BP 137/98
[2020-04-17] MEDS: hydrOXyzine 10MG TABLET PO SCH (21:56)
[2020-04-18] MEDS: DIPHENHYDRAMINE 12.5MG/5ML, 10ML UDC PO SCH ×4 (01:00→19:00)
[2020-04-18] MEDS: HYDROmorphone 1 MG/ML, 1ML INJ IV PRN ×10 (01:05→21:48)
[2020-04-18 01:09] VITALS: BP 143/96
[2020-04-18] MEDS: DIPHENHYDRAMINE 50 MG/ML, 1ML IVPush PRN ×4 (04:13→21:48)
[2020-04-18 04:43] LABS: ANION GAP 5 mmol/L (5-15); CHLORIDE 105 mmol/L (98-107); CREATININE 0.84 mg/dL (0.55-1.02)
[2020-04-18] MEDS: NYSTATIN 500,000 UNITS/5 ML UDC PO SCH ×5 (05:52→21:33)
[2020-04-18] MEDS: ASPIRIN 325 MG TABLET EC PO SCH ×2 (05:52→08:09)
[2020-04-18] MEDS: LORazepam INTENSOL 2 MG/ML PO SCH ×3 (05:52→18:00)
[2020-04-18] MEDS: PIPERACILLIN/TAZO/PMX 3.375GM 50 ML IV SCH ×3 (06:17→18:26)
[2020-04-18 07:55] VITALS: BP 147/109
[2020-04-18] MEDS: OPIUM TINCTURE 1% 10 MG/ML ORAL.SOL PO SCH ×3 (08:09→21:33)
[2020-04-18] MEDS: INSULIN REGULAR MEDIUM DOSE QDAY SQ-INSULIN SCH (09:00)
[2020-04-18 13:45] VITALS: BP_SYST 150; BP_SYST 152; BP_DIAS 106
[2020-04-18] MEDS ORDERED: DEXTROSE 70% IV SCH (17:00)
[2020-04-18] MEDS ORDERED: morphine SULFATE ORAL.CONC 20 MG/ML PO PRN (17:00)
[2020-04-18] MEDS ORDERED: [UNRECOGNIZED DRUG - OTHER] IV SCH (17:00)
[2020-04-18] MEDS: FILTER, DISP 1.2 MICRON FOR TPN/PVN IV SCH (17:00)
[2020-04-18] MEDS ORDERED: SMOF TPN IV SCH (17:00)
[2020-04-18] MEDS ORDERED: AMINO ACID 10% IV SCH (17:00)
[2020-04-18] MEDS ORDERED: FAT EMUL IV SCH (17:00)
[2020-04-18 20:00] VITALS: BP 148/108
[2020-04-18] MEDS: hydrOXyzine 10MG TABLET PO SCH (21:33)
[2020-04-19] MEDS: HYDROmorphone 1 MG/ML, 1ML INJ IV PRN ×6 (00:21→22:33)
[2020-04-19] MEDS: LORazepam INTENSOL 2 MG/ML PO SCH ×4 (00:21→18:00)
[2020-04-19] MEDS: DIPHENHYDRAMINE 12.5MG/5ML, 10ML UDC PO SCH ×4 (01:00→19:00)
[2020-04-19 02:10] VITALS: BP 153/107
[2020-04-19 04:50] LABS: ALANINE AMINOTRANSFERASE 53 U/L (12-78); ALBUMIN 2.5 g/dL (3.4-5.0); ANION GAP 6 mmol/L (5-15); CALCIUM 9.7 mg/dL (8.5-10.1); CHLORIDE 107 mmol/L (98-107); CREATININE 0.87 mg/dL (0.55-1.02)
[2020-04-19 04:53] LABS: ALKALINE PHOSPHATASE 289 U/L (45-117); BILIRUBIN,TOTAL 0.5 mg/dL (0.2-1.0); PREALBUMIN 35.9 mg/dL (20.0-40.0); TOTAL PROTEIN 8.7 g/dL (6.4-8.2)
[2020-04-19] MEDS: NYSTATIN 500,000 UNITS/5 ML UDC PO SCH ×4 (05:33→21:20)
[2020-04-19] MEDS: ASPIRIN 325 MG TABLET EC PO SCH (05:33)
[2020-04-19] MEDS: DIPHENHYDRAMINE 50 MG/ML, 1ML IVPush PRN ×3 (05:45→21:20)
[2020-04-19 06:59] VITALS: BP 147/109
[2020-04-19] MEDS ORDERED: FAT EMUL IV SCH ×3 (08:30→17:00)
[2020-04-19] MEDS ORDERED: AMINO ACID 10% IV SCH ×3 (08:30→17:00)
[2020-04-19] MEDS ORDERED: SMOF TPN IV SCH ×3 (08:30→17:00)
[2020-04-19] MEDS ORDERED: [UNRECOGNIZED DRUG - OTHER] IV SCH ×3 (08:30→17:00)
[2020-04-19] MEDS ORDERED: DEXTROSE 70% IV SCH ×3 (08:30→17:00)
[2020-04-19] MEDS ORDERED: SODIUM CHLORIDE 0.9% 1,000 ML IV SCH (09:00)
[2020-04-19] MEDS: INSULIN REGULAR MEDIUM DOSE QDAY SQ-INSULIN SCH (09:00)
[2020-04-19] MEDS: OPIUM TINCTURE 1% 10 MG/ML ORAL.SOL PO SCH ×3 (09:47→21:20)
[2020-04-19] MEDS: morphine SULFATE ORAL.CONC 20 MG/ML PO PRN ×2 (12:28→21:21)
[2020-04-19 12:44] VITALS: BP 132/93
[2020-04-19 16:31] VITALS: BP 132/97
[2020-04-19] MEDS: FILTER, DISP 1.2 MICRON FOR TPN/PVN IV SCH (17:16)
[2020-04-19] MEDS: SCOPOLAMINE PATCH, 1.5MG PATCH.TD72 TD SCH (17:17)
[2020-04-19 19:42] VITALS: BP 140/98
[2020-04-19] MEDS: hydrOXyzine 10MG TABLET PO SCH (21:20)
[2020-04-20] MEDS: DIPHENHYDRAMINE 12.5MG/5ML, 10ML UDC PO SCH ×4 (00:31→17:42)
[2020-04-20] MEDS: morphine SULFATE ORAL.CONC 20 MG/ML PO PRN ×3 (00:48→11:48)
[2020-04-20 01:03] VITALS: BP 152/104
[2020-04-20] MEDS: HYDROmorphone 1 MG/ML, 1ML INJ IV PRN (02:10)
[2020-04-20] MEDS: ASPIRIN 325 MG TABLET EC PO SCH (05:10)
[2020-04-20] MEDS: DIPHENHYDRAMINE 50 MG/ML, 1ML IVPush PRN ×3 (05:10→18:30)
[2020-04-20] MEDS: NYSTATIN 500,000 UNITS/5 ML UDC PO SCH ×4 (05:10→22:22)
[2020-04-20] MEDS: LORazepam INTENSOL 2 MG/ML PO SCH ×4 (05:10→22:22)
[2020-04-20 06:14] LABS: BASOPHILS % (AUTO) 1 % (0-1); EOSINOPHILS % (AUTO) 3 % (1-7); LYMPHOCYTES % (AUTO) 12 % (22-44); MEAN CORPUSCULAR HEMOGLOBIN 30.4 pg (27.0-34.8); MEAN CORPUSCULAR HGB CONC 34.5 g/dL (32.4-35.8); MEAN PLATELET VOLUME 8.4 fL (7.4-10.4); MONOCYTES % (AUTO) 9 % (2-9); NEUTROPHILS % (AUTO) 76 % (42-75); PLATELET COUNT 307 x10^3/uL (130-400); RED BLOOD COUNT 3.79 x10^6/uL (3.82-5.3); RED CELL DISTRIBUTION WIDTH 13.7 % (9.6-15.2)
[2020-04-20 06:17] LABS: MD NO
[2020-04-20 06:26] LABS: ANION GAP 3 mmol/L (5-15); CALCIUM 9.8 mg/dL (8.5-10.1); CHLORIDE 100 mmol/L (98-107); CREATININE 0.81 mg/dL (0.55-1.02); TRIGLYCERIDES 306 mg/dL (50-200)
[2020-04-20 06:41] VITALS: BP 135/97
[2020-04-20] MEDS: INSULIN REGULAR MEDIUM DOSE QDAY SQ-INSULIN SCH (08:31)
[2020-04-20] MEDS: OPIUM TINCTURE 1% 10 MG/ML ORAL.SOL PO SCH ×3 (11:48→22:23)
[2020-04-20 12:50] VITALS: BP 128/96
[2020-04-20] MEDS ORDERED: SMOF TPN IV SCH ×2 (17:00)
[2020-04-20] MEDS ORDERED: DEXTROSE 70% IV SCH ×2 (17:00)
[2020-04-20] MEDS ORDERED: [UNRECOGNIZED DRUG - OTHER] IV SCH (17:00)
[2020-04-20] MEDS ORDERED: AMINO ACID 10% IV SCH ×2 (17:00)
[2020-04-20] MEDS ORDERED: FAT EMUL IV SCH ×2 (17:00)
[2020-04-20] MEDS ORDERED: [UNRECOGNIZED DRUG - OTHER] IV SCH (17:00)
[2020-04-20] MEDS: FILTER, DISP 1.2 MICRON FOR TPN/PVN IV SCH (17:29)
[2020-04-20 19:17] VITALS: BP 138/96
[2020-04-20] MEDS: hydrOXyzine 10MG TABLET PO SCH (22:22)
[2020-04-21] MEDS: DIPHENHYDRAMINE 12.5MG/5ML, 10ML UDC PO SCH ×4 (01:00→19:00)
[2020-04-21 01:31] VITALS: BP 149/99
[2020-04-21] MEDS: DIPHENHYDRAMINE 50 MG/ML, 1ML IVPush PRN ×4 (03:49→23:56)
[2020-04-21 04:46] LABS: ANION GAP 8 mmol/L (5-15); CALCIUM 9.8 mg/dL (8.5-10.1); CHLORIDE 102 mmol/L (98-107); CREATININE 0.89 mg/dL (0.55-1.02)
[2020-04-21] MEDS: LORazepam INTENSOL 2 MG/ML PO SCH ×3 (06:10→20:26)
[2020-04-21] MEDS: NYSTATIN 500,000 UNITS/5 ML UDC PO SCH ×4 (06:10→20:25)
[2020-04-21] MEDS: ASPIRIN 325 MG TABLET EC PO SCH (06:10)
[2020-04-21] MEDS: HYDROmorphone 1 MG/ML, 1ML INJ IV PRN ×2 (06:18→10:22)
[2020-04-21 07:31] VITALS: BP 123/89
[2020-04-21] MEDS: INSULIN REGULAR MEDIUM DOSE QDAY SQ-INSULIN SCH (09:00)
[2020-04-21] MEDS: OPIUM TINCTURE 1% 10 MG/ML ORAL.SOL PO SCH ×3 (10:00→21:02)
[2020-04-21 13:07] VITALS: BP 132/98
[2020-04-21] MEDS ORDERED: [UNRECOGNIZED DRUG - OTHER] IV SCH (17:00)
[2020-04-21] MEDS ORDERED: SMOF TPN IV SCH (17:00)
[2020-04-21] MEDS ORDERED: DEXTROSE 70% IV SCH (17:00)
[2020-04-21] MEDS ORDERED: AMINO ACID 10% IV SCH (17:00)
[2020-04-21] MEDS ORDERED: FAT EMUL IV SCH (17:00)
[2020-04-21] MEDS: FILTER, DISP 1.2 MICRON FOR TPN/PVN IV SCH (17:44)
[2020-04-21] MEDS: morphine SULFATE ORAL.CONC 20 MG/ML PO PRN ×2 (19:11→21:03)
[2020-04-21 19:44] VITALS: BP 140/95
[2020-04-21] MEDS: hydrOXyzine 10MG TABLET PO SCH (20:25)
[2020-04-22 00:01] VITALS: BP 143/95
[2020-04-22] MEDS: DIPHENHYDRAMINE 12.5MG/5ML, 10ML UDC PO SCH ×4 (01:00→18:58)
[2020-04-22] MEDS: LORazepam INTENSOL 2 MG/ML PO SCH ×4 (03:34→20:59)
[2020-04-22] MEDS: ASPIRIN 325 MG TABLET EC PO SCH (06:09)
[2020-04-22] MEDS: DIPHENHYDRAMINE 50 MG/ML, 1ML IVPush PRN ×3 (06:09→18:21)
[2020-04-22] MEDS: NYSTATIN 500,000 UNITS/5 ML UDC PO SCH ×4 (06:09→20:58)
[2020-04-22 06:53] VITALS: BP 136/98
[2020-04-22] MEDS: INSULIN REGULAR MEDIUM DOSE QDAY SQ-INSULIN SCH (09:00)
[2020-04-22] MEDS: OPIUM TINCTURE 1% 10 MG/ML ORAL.SOL PO SCH ×3 (09:00→20:58)
[2020-04-22] MEDS: SIMETHICONE 80 MG CHEW TAB PO PRN (09:29)
[2020-04-22] MEDS ORDERED: hydrOXyzine 10MG TABLET PO PRN (12:00)
[2020-04-22 12:28] VITALS: BP 135/99
[2020-04-22] MEDS ORDERED: SODIUM CHLORIDE 0.9% 1,000ML IVBOLUS ONE (12:30)
[2020-04-22] MEDS: morphine SULFATE ORAL.CONC 20 MG/ML PO PRN ×3 (12:35→21:50)
[2020-04-22] MEDS: HYDROmorphone 1 MG/ML, 1ML INJ IV PRN (15:15)
[2020-04-22] MEDS: SCOPOLAMINE PATCH, 1.5MG PATCH.TD72 TD SCH (15:48)
[2020-04-22] MEDS ORDERED: SMOF TPN IV SCH (17:00)
[2020-04-22] MEDS ORDERED: DEXTROSE 70% IV SCH (17:00)
[2020-04-22] MEDS ORDERED: FAT EMUL IV SCH (17:00)
[2020-04-22] MEDS ORDERED: [UNRECOGNIZED DRUG - OTHER] IV SCH (17:00)
[2020-04-22] MEDS ORDERED: AMINO ACID 10% IV SCH (17:00)
[2020-04-22] MEDS: FILTER, DISP 1.2 MICRON FOR TPN/PVN IV SCH (17:49)
[2020-04-22 19:33] VITALS: BP 131/93
[2020-04-22] MEDS: hydrOXyzine 10MG TABLET PO SCH (20:58)
[2020-04-23 00:07] VITALS: BP 122/84
[2020-04-23] MEDS: DIPHENHYDRAMINE 50 MG/ML, 1ML IVPush PRN ×4 (00:10→18:26)
[2020-04-23] MEDS: DIPHENHYDRAMINE 12.5MG/5ML, 10ML UDC PO SCH ×5 (00:10→23:32)
[2020-04-23] MEDS: morphine SULFATE ORAL.CONC 20 MG/ML PO PRN ×2 (01:09→22:14)
[2020-04-23] MEDS: LORazepam INTENSOL 2 MG/ML PO SCH ×4 (03:01→21:26)
[2020-04-23] MEDS: HYDROmorphone 1 MG/ML, 1ML INJ IV PRN ×3 (04:51→19:48)
[2020-04-23] MEDS: NYSTATIN 500,000 UNITS/5 ML UDC PO SCH ×4 (05:49→21:26)
[2020-04-23] MEDS: ASPIRIN 325 MG TABLET EC PO SCH (05:49)
[2020-04-23 06:13] LABS: ALBUMIN 2.5 g/dL (3.4-5.0); ANION GAP 6 mmol/L (5-15); CALCIUM 9.5 mg/dL (8.5-10.1); CHLORIDE 106 mmol/L (98-107)
[2020-04-23 06:17] LABS: CREATININE 0.88 mg/dL (0.55-1.02)
[2020-04-23 06:18] LABS: ALANINE AMINOTRANSFERASE 53 U/L (12-78); ALKALINE PHOSPHATASE 265 U/L (45-117); BILIRUBIN,TOTAL 0.6 mg/dL (0.2-1.0); TOTAL PROTEIN 8.4 g/dL (6.4-8.2)
[2020-04-23 06:19] LABS: BASOPHILS % (AUTO) 1 % (0-1); EOSINOPHILS % (AUTO) 3 % (1-7); LYMPHOCYTES % (AUTO) 6 % (22-44); MEAN CORPUSCULAR HEMOGLOBIN 30.2 pg (27.0-34.8); MEAN CORPUSCULAR HGB CONC 34.3 g/dL (32.4-35.8); MEAN PLATELET VOLUME 9.4 fL (7.4-10.4); MONOCYTES % (AUTO) 10 % (2-9); NEUTROPHILS % (AUTO) 81 % (42-75); PLATELET COUNT 217 x10^3/uL (130-400); RED CELL DISTRIBUTION WIDTH 14.1 % (9.6-15.2)
[2020-04-23 06:30] LABS: MD NO
[2020-04-23 07:18] VITALS: BP 134/83
[2020-04-23] MEDS ORDERED: HYDROcodone/APAP 7.5-325MG/15ML UDC PO PRN (08:00)
[2020-04-23] MEDS ORDERED: SODIUM CHLORIDE 0.9% 1,000ML IVBOLUS ONE (08:00)
[2020-04-23] MEDS: INSULIN REGULAR MEDIUM DOSE QDAY SQ-INSULIN SCH (08:28)
[2020-04-23] MEDS: OPIUM TINCTURE 1% 10 MG/ML ORAL.SOL PO SCH ×3 (08:50→21:26)
[2020-04-23 13:06] VITALS: BP 137/99
[2020-04-23] MEDS: SIMETHICONE 80 MG CHEW TAB PO PRN (14:07)
[2020-04-23] MEDS: FILTER, DISP 1.2 MICRON FOR TPN/PVN IV SCH (16:54)
[2020-04-23] MEDS: CALCITRIOL 1 MCG/ML SOL PO SCH (16:55)
[2020-04-23] MEDS ORDERED: FAT EMUL IV SCH (17:00)
[2020-04-23] MEDS ORDERED: DEXTROSE 70% IV SCH (17:00)
[2020-04-23] MEDS ORDERED: SMOF TPN IV SCH (17:00)
[2020-04-23] MEDS ORDERED: AMINO ACID 10% IV SCH (17:00)
[2020-04-23] MEDS ORDERED: [UNRECOGNIZED DRUG - OTHER] IV SCH (17:00)
[2020-04-23 18:35] VITALS: BP 137/92
[2020-04-23] MEDS: hydrOXyzine 10MG TABLET PO SCH (21:26)
[2020-04-24] MEDS: DIPHENHYDRAMINE 50 MG/ML, 1ML IVPush PRN ×4 (00:24→19:08)
[2020-04-24 00:31] VITALS: BP 135/94
[2020-04-24] MEDS: LORazepam INTENSOL 2 MG/ML PO SCH ×5 (02:35→22:19)
[2020-04-24] MEDS: morphine SULFATE ORAL.CONC 20 MG/ML PO PRN ×2 (02:36→05:42)
[2020-04-24] MEDS: HYDROmorphone 1 MG/ML, 1ML INJ IV PRN ×3 (02:44→23:20)
[2020-04-24] MEDS: ASPIRIN 325 MG TABLET EC PO SCH (05:41)
[2020-04-24] MEDS: NYSTATIN 500,000 UNITS/5 ML UDC PO SCH ×4 (05:41→22:19)
[2020-04-24 06:24] LABS: BASOPHILS % (AUTO) 1 % (0-1); EOSINOPHILS % (AUTO) 2 % (1-7); LYMPHOCYTES % (AUTO) 7 % (22-44); MEAN CORPUSCULAR HEMOGLOBIN 30.5 pg (27.0-34.8); MEAN CORPUSCULAR HGB CONC 34.8 g/dL (32.4-35.8); MEAN PLATELET VOLUME 9.9 fL (7.4-10.4); MONOCYTES % (AUTO) 7 % (2-9); NEUTROPHILS % (AUTO) 84 % (42-75); PLATELET COUNT 235 x10^3/uL (130-400); RED BLOOD COUNT 3.55 x10^6/uL (3.82-5.3); RED CELL DISTRIBUTION WIDTH 13.9 % (9.6-15.2)
[2020-04-24 06:31] LABS: ANION GAP 5 mmol/L (5-15); CALCIUM 9.9 mg/dL (8.5-10.1); CHLORIDE 104 mmol/L (98-107)
[2020-04-24 06:34] LABS: CREATININE 0.75 mg/dL (0.55-1.02)
[2020-04-24 06:42] LABS: MD NO
[2020-04-24] MEDS: DIPHENHYDRAMINE 12.5MG/5ML, 10ML UDC PO SCH ×3 (06:45→19:00)
[2020-04-24] MEDS: INSULIN REGULAR MEDIUM DOSE QDAY SQ-INSULIN SCH (07:18)
[2020-04-24 07:33] VITALS: BP 129/91
[2020-04-24] MEDS: OPIUM TINCTURE 1% 10 MG/ML ORAL.SOL PO SCH ×3 (08:26→22:19)
[2020-04-24 13:58] VITALS: BP 130/94
[2020-04-24] MEDS: FILTER, DISP 1.2 MICRON FOR TPN/PVN IV SCH (16:50)
[2020-04-24] MEDS: CALCITRIOL 1 MCG/ML SOL PO SCH (16:51)
[2020-04-24] MEDS ORDERED: SMOF TPN IV SCH (17:00)
[2020-04-24] MEDS ORDERED: [UNRECOGNIZED DRUG - OTHER] IV SCH (17:00)
[2020-04-24] MEDS ORDERED: AMINO ACID 10% IV SCH (17:00)
[2020-04-24] MEDS ORDERED: DEXTROSE 70% IV SCH (17:00)
[2020-04-24] MEDS ORDERED: FAT EMUL IV SCH (17:00)
[2020-04-24 18:39] VITALS: BP 128/92
[2020-04-24] MEDS: hydrOXyzine 10MG TABLET PO SCH (22:19)
[2020-04-25 00:01] LABS: MICROSCOPIC INDICATED
[2020-04-25 00:41] VITALS: BP 125/83
[2020-04-25] MEDS: DIPHENHYDRAMINE 50 MG/ML, 1ML IVPush PRN ×4 (00:51→19:51)
[2020-04-25] MEDS: DIPHENHYDRAMINE 12.5MG/5ML, 10ML UDC PO SCH ×4 (00:52→18:11)
[2020-04-25] MEDS: LORazepam INTENSOL 2 MG/ML PO SCH ×4 (02:47→21:00)
[2020-04-25] MEDS: ASPIRIN 325 MG TABLET EC PO SCH (05:25)
[2020-04-25] MEDS: NYSTATIN 500,000 UNITS/5 ML UDC PO SCH ×4 (05:26→21:00)
[2020-04-25] MEDS: HYDROmorphone 1 MG/ML, 1ML INJ IV PRN ×5 (05:33→21:33)
[2020-04-25 07:39] VITALS: BP 121/87
[2020-04-25] MEDS ORDERED: CIPROFLOXACIN/PMX 400MG/200ML 200 ML IV SCH (08:00)
[2020-04-25] MEDS: PIPERACILLIN/TAZO/PMX 3.375GM 50 ML IV SCH ×3 (10:21→21:25)
[2020-04-25] MEDS: OPIUM TINCTURE 1% 10 MG/ML ORAL.SOL PO SCH ×3 (10:22→21:00)
[2020-04-25] MEDS: INSULIN REGULAR MEDIUM DOSE QDAY SQ-INSULIN SCH (10:29)
[2020-04-25 10:49] LABS: BASOPHILS % (AUTO) 1 % (0-1); EOSINOPHILS % (AUTO) 1 % (1-7); LYMPHOCYTES % (AUTO) 7 % (22-44); MEAN CORPUSCULAR HEMOGLOBIN 30.3 pg (27.0-34.8); MEAN CORPUSCULAR HGB CONC 34.6 g/dL (32.4-35.8); MEAN PLATELET VOLUME 9.8 fL (7.4-10.4); MONOCYTES % (AUTO) 8 % (2-9); NEUTROPHILS % (AUTO) 84 % (42-75); PLATELET COUNT 166 x10^3/uL (130-400); RED BLOOD COUNT 3.44 x10^6/uL (3.82-5.3); RED CELL DISTRIBUTION WIDTH 13.7 % (9.6-15.2)
[2020-04-25 10:58] LABS: MD NO
[2020-04-25 12:57] VITALS: BP 121/88
[2020-04-25] MEDS ORDERED: CATHFLO-ALTEPLASE 2 MG/2 ML CATHFLUSH ONE (14:00)
[2020-04-25] MEDS: SCOPOLAMINE PATCH, 1.5MG PATCH.TD72 TD SCH (16:51)
[2020-04-25] MEDS: FILTER, DISP 1.2 MICRON FOR TPN/PVN IV SCH (16:52)
[2020-04-25] MEDS ORDERED: SMOF TPN IV SCH (17:00)
[2020-04-25] MEDS ORDERED: FAT EMUL IV SCH (17:00)
[2020-04-25] MEDS ORDERED: [UNRECOGNIZED DRUG - OTHER] IV SCH (17:00)
[2020-04-25] MEDS ORDERED: DEXTROSE 70% IV SCH (17:00)
[2020-04-25] MEDS ORDERED: AMINO ACID 10% IV SCH (17:00)
[2020-04-25 18:53] VITALS: BP 113/76
[2020-04-25] MEDS: CALCITRIOL 1 MCG/ML SOL PO SCH (19:30)
[2020-04-25] MEDS: hydrOXyzine 10MG TABLET PO SCH (21:00)
[2020-04-26] MEDS: HYDROmorphone 1 MG/ML, 1ML INJ IV PRN ×6 (00:59→22:39)
[2020-04-26] MEDS: DIPHENHYDRAMINE 12.5MG/5ML, 10ML UDC PO SCH ×4 (01:00→19:13)
[2020-04-26 01:33] VITALS: BP 116/83
[2020-04-26] MEDS: LORazepam INTENSOL 2 MG/ML PO SCH ×4 (03:00→21:43)
[2020-04-26] MEDS: DIPHENHYDRAMINE 50 MG/ML, 1ML IVPush PRN ×3 (03:34→18:38)
[2020-04-26] MEDS: PIPERACILLIN/TAZO/PMX 3.375GM 50 ML IV SCH ×4 (03:35→21:44)
[2020-04-26] MEDS: ASPIRIN 325 MG TABLET EC PO SCH (06:00)
[2020-04-26] MEDS: NYSTATIN 500,000 UNITS/5 ML UDC PO SCH ×5 (06:00→21:43)
[2020-04-26 06:06] LABS: ALBUMIN 2.2 g/dL (3.4-5.0); CALCIUM 8.7 mg/dL (8.5-10.1)
[2020-04-26 06:14] LABS: ALANINE AMINOTRANSFERASE 21 U/L (12-78); ALKALINE PHOSPHATASE 258 U/L (45-117); BILIRUBIN,TOTAL 0.5 mg/dL (0.2-1.0); CREATININE 0.81 mg/dL (0.55-1.02); PREALBUMIN 29.6 mg/dL (20.0-40.0); TOTAL PROTEIN 7.5 g/dL (6.4-8.2); TRIGLYCERIDES 232 mg/dL (50-200)
[2020-04-26 06:23] LABS: ANION GAP 7 mmol/L (5-15); CHLORIDE 102 mmol/L (98-107)
[2020-04-26 06:52] VITALS: BP 101/73
[2020-04-26] MEDS: INSULIN REGULAR MEDIUM DOSE QDAY SQ-INSULIN SCH (09:00)
[2020-04-26] MEDS: OPIUM TINCTURE 1% 10 MG/ML ORAL.SOL PO SCH ×4 (10:07→21:43)
[2020-04-26 12:37] VITALS: BP 114/82
[2020-04-26] MEDS ORDERED: FAT EMUL IV SCH (17:00)
[2020-04-26] MEDS ORDERED: DEXTROSE 70% IV SCH (17:00)
[2020-04-26] MEDS ORDERED: [UNRECOGNIZED DRUG - OTHER] IV SCH (17:00)
[2020-04-26] MEDS ORDERED: AMINO ACID 10% IV SCH (17:00)
[2020-04-26] MEDS ORDERED: SMOF TPN IV SCH (17:00)
[2020-04-26] MEDS: FILTER, DISP 1.2 MICRON FOR TPN/PVN IV SCH (18:23)
[2020-04-26] MEDS: CALCITRIOL 1 MCG/ML SOL PO SCH (18:39)
[2020-04-26 18:55] VITALS: BP 116/81
[2020-04-26] MEDS: hydrOXyzine 10MG TABLET PO SCH ×2 (21:00→21:43)
[2020-04-27] MEDS: DIPHENHYDRAMINE 12.5MG/5ML, 10ML UDC PO SCH ×5 (00:52→22:36)
[2020-04-27 01:11] VITALS: BP 130/84
[2020-04-27] MEDS: LORazepam INTENSOL 2 MG/ML PO SCH ×4 (03:00→23:49)
[2020-04-27] MEDS: DIPHENHYDRAMINE 50 MG/ML, 1ML IVPush PRN ×2 (03:29→20:29)
[2020-04-27] MEDS: HYDROmorphone 1 MG/ML, 1ML INJ IV PRN ×6 (03:29→20:30)
[2020-04-27] MEDS: PIPERACILLIN/TAZO/PMX 3.375GM 50 ML IV SCH ×4 (03:31→21:18)
[2020-04-27] MEDS: ASPIRIN 325 MG TABLET EC PO SCH (05:28)
[2020-04-27 05:37] LABS: BASOPHILS % (AUTO) 0 % (0-1); EOSINOPHILS % (AUTO) 3 % (1-7); LYMPHOCYTES % (AUTO) 5 % (22-44); MEAN CORPUSCULAR HEMOGLOBIN 30.4 pg (27.0-34.8); MEAN CORPUSCULAR HGB CONC 34.7 g/dL (32.4-35.8); MONOCYTES % (AUTO) 7 % (2-9); NEUTROPHILS % (AUTO) 85 % (42-75); PLATELET COUNT 193 x10^3/uL (130-400); RED CELL DISTRIBUTION WIDTH 13.5 % (9.6-15.2)
[2020-04-27 05:38] LABS: MD NO
[2020-04-27] MEDS: NYSTATIN 500,000 UNITS/5 ML UDC PO SCH ×4 (05:40→21:00)
[2020-04-27 07:16] VITALS: BP 122/88
[2020-04-27] MEDS ORDERED: DIPHENHYDRAMINE 50 MG/ML, 1ML IVPush ONE (08:00)
[2020-04-27] MEDS: INSULIN REGULAR MEDIUM DOSE QDAY SQ-INSULIN SCH (09:00)
[2020-04-27] MEDS: OPIUM TINCTURE 1% 10 MG/ML ORAL.SOL PO SCH ×3 (10:26→21:00)
[2020-04-27 12:50] VITALS: BP 125/92
[2020-04-27] MEDS ORDERED: [UNRECOGNIZED DRUG - OTHER] IV SCH (17:00)
[2020-04-27] MEDS ORDERED: DEXTROSE 70% IV SCH (17:00)
[2020-04-27] MEDS ORDERED: FAT EMUL IV SCH (17:00)
[2020-04-27] MEDS ORDERED: AMINO ACID 10% IV SCH (17:00)
[2020-04-27] MEDS ORDERED: SMOF TPN IV SCH (17:00)
[2020-04-27] MEDS: FILTER, DISP 1.2 MICRON FOR TPN/PVN IV SCH (17:46)
[2020-04-27 18:31] VITALS: BP 111/74
[2020-04-27] MEDS: hydrOXyzine 10MG TABLET PO SCH (21:00)
[2020-04-27] MEDS: CALCITRIOL 1 MCG/ML SOL PO SCH (21:20)
[2020-04-28 00:20] VITALS: BP 148/95
[2020-04-28] MEDS: HYDROmorphone 1 MG/ML, 1ML INJ IV PRN ×7 (01:03→20:36)
[2020-04-28] MEDS: PIPERACILLIN/TAZO/PMX 3.375GM 50 ML IV SCH ×4 (03:09→22:49)
[2020-04-28] MEDS: DIPHENHYDRAMINE 50 MG/ML, 1ML IVPush PRN ×4 (03:10→22:49)
[2020-04-28] MEDS: LORazepam INTENSOL 2 MG/ML PO SCH ×4 (05:22→19:00)
[2020-04-28 05:54] LABS: BASOPHILS % (AUTO) 1 % (0-1); EOSINOPHILS % (AUTO) 5 % (1-7); LYMPHOCYTES % (AUTO) 12 % (22-44); MEAN CORPUSCULAR HEMOGLOBIN 30.2 pg (27.0-34.8); MEAN CORPUSCULAR HGB CONC 34.1 g/dL (32.4-35.8); MEAN PLATELET VOLUME 10.3 fL (7.4-10.4); MONOCYTES % (AUTO) 9 % (2-9); NEUTROPHILS % (AUTO) 74 % (42-75); PLATELET COUNT 211 x10^3/uL (130-400); RED CELL DISTRIBUTION WIDTH 13.5 % (9.6-15.2)
[2020-04-28] MEDS: NYSTATIN 500,000 UNITS/5 ML UDC PO SCH ×4 (06:00→20:06)
[2020-04-28 06:06] LABS: ANION GAP 9 mmol/L (5-15); CALCIUM 8.6 mg/dL (8.5-10.1); CHLORIDE 103 mmol/L (98-107); MD NO
[2020-04-28 06:08] VITALS: BP 120/78
[2020-04-28 06:08] LABS: CREATININE 0.83 mg/dL (0.55-1.02)
[2020-04-28] MEDS: DIPHENHYDRAMINE 12.5MG/5ML, 10ML UDC PO SCH ×3 (07:00→18:10)
[2020-04-28] MEDS: INSULIN REGULAR MEDIUM DOSE QDAY SQ-INSULIN SCH (09:00)
[2020-04-28] MEDS: OPIUM TINCTURE 1% 10 MG/ML ORAL.SOL PO SCH ×4 (10:13→20:06)
[2020-04-28 14:40] VITALS: BP 123/78
[2020-04-28] MEDS: ASPIRIN 325 MG TABLET PO SCH (16:23)
[2020-04-28] MEDS: SCOPOLAMINE PATCH, 1.5MG PATCH.TD72 TD SCH (16:24)
[2020-04-28] MEDS ORDERED: FAT EMUL IV SCH (17:00)
[2020-04-28] MEDS ORDERED: DEXTROSE 70% IV SCH (17:00)
[2020-04-28] MEDS ORDERED: SMOF TPN IV SCH (17:00)
[2020-04-28] MEDS ORDERED: AMINO ACID 10% IV SCH (17:00)
[2020-04-28] MEDS ORDERED: FILTER, DISP 1.2 MICRON FOR TPN/PVN IV SCH (17:00)
[2020-04-28] MEDS ORDERED: [UNRECOGNIZED DRUG - OTHER] IV SCH (17:00)
[2020-04-28] MEDS: CALCITRIOL 1 MCG/ML SOL PO SCH (18:00)
[2020-04-28] MEDS: PROCHLORPERAZINE 5 MG/ML, 2ML IVPush PRN (18:23)
[2020-04-28 19:59] VITALS: BP 110/72
[2020-04-28] MEDS ORDERED: LORazepam 0.5MG TABLET ONE (20:04)
[2020-04-28] MEDS: hydrOXyzine 10MG TABLET PO SCH (20:06)
[2020-04-29] MEDS: DIPHENHYDRAMINE 12.5MG/5ML, 10ML UDC PO SCH ×4 (01:00→17:44)
[2020-04-29] MEDS: LORazepam INTENSOL 2 MG/ML PO SCH ×4 (02:00→22:04)
[2020-04-29] MEDS ORDERED: LORazepam 0.5MG TABLET ONE (02:04)
[2020-04-29] MEDS: HYDROmorphone 1 MG/ML, 1ML INJ IV PRN ×6 (02:11→23:12)
[2020-04-29 02:19] VITALS: BP 107/75
[2020-04-29] MEDS: PIPERACILLIN/TAZO/PMX 3.375GM 50 ML IV SCH ×4 (04:51→23:12)
[2020-04-29] MEDS: DIPHENHYDRAMINE 50 MG/ML, 1ML IVPush PRN ×2 (04:51→16:00)
[2020-04-29] MEDS: NYSTATIN 500,000 UNITS/5 ML UDC PO SCH ×4 (06:35→22:00)
[2020-04-29 07:56] VITALS: BP 116/85
[2020-04-29] MEDS ORDERED: LORazepam 2 MG/ML, 1ML ONE ×2 (08:20→15:01)
[2020-04-29] MEDS: OPIUM TINCTURE 1% 10 MG/ML ORAL.SOL PO SCH ×3 (08:37→21:59)
[2020-04-29] MEDS: INSULIN REGULAR MEDIUM DOSE QDAY SQ-INSULIN SCH (09:04)
[2020-04-29 12:30] VITALS: BP 120/86
[2020-04-29] MEDS: ONDANSETRON 2MG/ML, 2ML IVPush PRN (12:35)
[2020-04-29] MEDS ORDERED: SMOF TPN IV SCH (17:00)
[2020-04-29] MEDS ORDERED: FILTER, DISP 1.2 MICRON FOR TPN/PVN IV SCH (17:00)
[2020-04-29] MEDS ORDERED: AMINO ACID 10% IV SCH (17:00)
[2020-04-29] MEDS ORDERED: FAT EMUL IV SCH (17:00)
[2020-04-29] MEDS ORDERED: OMNIPAQUE 350 MG/ML, 150 ML BOTTLE ONE (17:00)
[2020-04-29] MEDS ORDERED: DEXTROSE 70% IV SCH (17:00)
[2020-04-29] MEDS ORDERED: [UNRECOGNIZED DRUG - OTHER] IV SCH (17:00)
[2020-04-29] MEDS: ASPIRIN 325 MG TABLET PO SCH (17:11)
[2020-04-29] MEDS: CALCITRIOL 1 MCG/ML SOL PO SCH (17:20)
[2020-04-29 19:07] VITALS: BP 128/96
[2020-04-29] MEDS: hydrOXyzine 10MG TABLET PO SCH (22:00)
[2020-04-30 01:15] VITALS: BP 120/85
[2020-04-30] MEDS: DIPHENHYDRAMINE 50 MG/ML, 1ML IVPush PRN ×4 (01:15→19:16)
[2020-04-30] MEDS: DIPHENHYDRAMINE 12.5MG/5ML, 10ML UDC PO SCH ×5 (01:16→19:17)
[2020-04-30] MEDS: LORazepam INTENSOL 2 MG/ML PO SCH ×5 (02:43→20:02)
[2020-04-30] MEDS: PIPERACILLIN/TAZO/PMX 3.375GM 50 ML IV SCH ×4 (04:35→22:47)
[2020-04-30 04:58] LABS: ANION GAP 7 mmol/L (5-15); CALCIUM 8.6 mg/dL (8.5-10.1); CHLORIDE 102 mmol/L (98-107); CREATININE 0.83 mg/dL (0.55-1.02)
[2020-04-30] MEDS: NYSTATIN 500,000 UNITS/5 ML UDC PO SCH ×6 (05:18→21:52)
[2020-04-30] MEDS: HYDROmorphone 1 MG/ML, 1ML INJ IV PRN ×5 (05:18→19:54)
[2020-04-30 06:44] VITALS: BP 109/77
[2020-04-30] MEDS: INSULIN REGULAR MEDIUM DOSE QDAY SQ-INSULIN SCH (06:56)
[2020-04-30] MEDS: OPIUM TINCTURE 1% 10 MG/ML ORAL.SOL PO SCH ×5 (09:54→21:52)
[2020-04-30 14:15] VITALS: BP 118/87
[2020-04-30] MEDS: ASPIRIN 325 MG TABLET PO SCH (16:42)
[2020-04-30] MEDS: CALCITRIOL 1 MCG/ML SOL PO SCH (16:42)
[2020-04-30] MEDS ORDERED: DEXTROSE 70% IV SCH (17:00)
[2020-04-30] MEDS ORDERED: [UNRECOGNIZED DRUG - OTHER] IV SCH (17:00)
[2020-04-30] MEDS ORDERED: SMOF TPN IV SCH (17:00)
[2020-04-30] MEDS ORDERED: AMINO ACID 10% IV SCH (17:00)
[2020-04-30] MEDS ORDERED: FAT EMUL IV SCH (17:00)
[2020-04-30] MEDS ORDERED: FILTER, DISP 1.2 MICRON FOR TPN/PVN IV SCH (17:00)
[2020-04-30 19:22] VITALS: BP 130/94
[2020-04-30] MEDS: hydrOXyzine 10MG TABLET PO SCH (21:51)
[2020-05-01 00:30] VITALS: BP 128/89
[2020-05-01] MEDS: HYDROmorphone 1 MG/ML, 1ML INJ IV PRN ×7 (00:40→20:32)
[2020-05-01] MEDS: DIPHENHYDRAMINE 50 MG/ML, 1ML IVPush PRN ×4 (01:23→20:27)
[2020-05-01] MEDS: DIPHENHYDRAMINE 12.5MG/5ML, 10ML UDC PO SCH ×4 (01:28→19:00)
[2020-05-01] MEDS: LORazepam INTENSOL 2 MG/ML PO SCH ×4 (02:17→23:27)
[2020-05-01] MEDS: PIPERACILLIN/TAZO/PMX 3.375GM 50 ML IV SCH ×4 (04:27→23:25)
[2020-05-01] MEDS: NYSTATIN 500,000 UNITS/5 ML UDC PO SCH ×4 (05:58→20:32)
[2020-05-01 07:48] VITALS: BP 129/94
[2020-05-01] MEDS: INSULIN REGULAR MEDIUM DOSE QDAY SQ-INSULIN SCH (08:29)
[2020-05-01] MEDS: OPIUM TINCTURE 1% 10 MG/ML ORAL.SOL PO SCH ×3 (08:36→20:32)
[2020-05-01 13:50] VITALS: BP 141/98
[2020-05-01] MEDS: ASPIRIN 325 MG TABLET PO SCH (16:00)
[2020-05-01] MEDS: SCOPOLAMINE PATCH, 1.5MG PATCH.TD72 TD SCH (16:30)
[2020-05-01] MEDS ORDERED: DEXTROSE 70% IV SCH (17:00)
[2020-05-01] MEDS ORDERED: FAT EMUL IV SCH (17:00)
[2020-05-01] MEDS ORDERED: [UNRECOGNIZED DRUG - OTHER] IV SCH (17:00)
[2020-05-01] MEDS ORDERED: SMOF TPN IV SCH (17:00)
[2020-05-01] MEDS ORDERED: AMINO ACID 10% IV SCH (17:00)
[2020-05-01] MEDS: CALCITRIOL 1 MCG/ML SOL PO SCH (17:52)
[2020-05-01] MEDS: FILTER, DISP 1.2 MICRON FOR TPN/PVN IV SCH (17:57)
[2020-05-01 18:14] VITALS: BP 123/89
[2020-05-01] MEDS: hydrOXyzine 10MG TABLET PO SCH (20:32)
[2020-05-02 00:25] VITALS: BP 110/72
[2020-05-02] MEDS: DIPHENHYDRAMINE 12.5MG/5ML, 10ML UDC PO SCH ×4 (01:00→17:25)
[2020-05-02] MEDS: DIPHENHYDRAMINE 50 MG/ML, 1ML IVPush PRN ×4 (02:30→22:53)
[2020-05-02] MEDS: HYDROmorphone 1 MG/ML, 1ML INJ IV PRN ×6 (02:33→19:57)
[2020-05-02 04:48] LABS: ANION GAP 8 mmol/L (5-15); CALCIUM 8.8 mg/dL (8.5-10.1); CHLORIDE 101 mmol/L (98-107)
[2020-05-02] MEDS: PIPERACILLIN/TAZO/PMX 3.375GM 50 ML IV SCH ×4 (05:04→22:53)
[2020-05-02] MEDS: NYSTATIN 500,000 UNITS/5 ML UDC PO SCH ×4 (06:00→19:57)
[2020-05-02] MEDS: OPIUM TINCTURE 1% 10 MG/ML ORAL.SOL PO SCH ×3 (06:41→20:00)
[2020-05-02] MEDS: LORazepam INTENSOL 2 MG/ML PO SCH ×4 (06:41→22:53)
[2020-05-02] MEDS: INSULIN REGULAR MEDIUM DOSE QDAY SQ-INSULIN SCH (07:29)
[2020-05-02 08:44] VITALS: BP 108/74
[2020-05-02 14:40] VITALS: BP 114/79
[2020-05-02] MEDS ORDERED: FAT EMUL IV SCH (17:00)
[2020-05-02] MEDS ORDERED: SMOF TPN IV SCH (17:00)
[2020-05-02] MEDS ORDERED: [UNRECOGNIZED DRUG - OTHER] IV SCH (17:00)
[2020-05-02] MEDS ORDERED: DEXTROSE 70% IV SCH (17:00)
[2020-05-02] MEDS ORDERED: AMINO ACID 10% IV SCH (17:00)
[2020-05-02] MEDS: ASPIRIN 325 MG TABLET PO SCH (17:13)
[2020-05-02] MEDS: FILTER, DISP 1.2 MICRON FOR TPN/PVN IV SCH (17:14)
[2020-05-02] MEDS: CALCITRIOL 1 MCG/ML SOL PO SCH (18:09)
[2020-05-02 18:45] VITALS: BP 111/80
[2020-05-02] MEDS: hydrOXyzine 10MG TABLET PO SCH (19:57)
[2020-05-03] MEDS: DIPHENHYDRAMINE 12.5MG/5ML, 10ML UDC PO SCH ×4 (00:36→19:00)
[2020-05-03 02:30] VITALS: BP 113/78
[2020-05-03] MEDS: HYDROmorphone 1 MG/ML, 1ML INJ IV PRN ×7 (05:06→22:57)
[2020-05-03] MEDS: PIPERACILLIN/TAZO/PMX 3.375GM 50 ML IV SCH ×4 (05:06→22:53)
[2020-05-03] MEDS: NYSTATIN 500,000 UNITS/5 ML UDC PO SCH ×4 (05:06→20:48)
[2020-05-03 05:32] LABS: BASOPHILS % (AUTO) 1 % (0-1); EOSINOPHILS % (AUTO) 13 % (1-7); LYMPHOCYTES % (AUTO) 12 % (22-44); MEAN CORPUSCULAR HEMOGLOBIN 30.1 pg (27.0-34.8); MEAN CORPUSCULAR HGB CONC 34.4 g/dL (32.4-35.8); MEAN PLATELET VOLUME 9.7 fL (7.4-10.4); MONOCYTES % (AUTO) 10 % (2-9); NEUTROPHILS % (AUTO) 64 % (42-75); PLATELET COUNT 275 x10^3/uL (130-400); RED CELL DISTRIBUTION WIDTH 13.2 % (9.6-15.2)
[2020-05-03 05:33] LABS: CHLORIDE 103 mmol/L (98-107)
[2020-05-03] MEDS: LORazepam INTENSOL 2 MG/ML PO SCH ×4 (05:36→22:53)
[2020-05-03 05:46] LABS: ANION GAP 7 mmol/L (5-15); CALCIUM 8.8 mg/dL (8.5-10.1); CREATININE 0.96 mg/dL (0.55-1.02)
[2020-05-03 05:47] LABS: ALANINE AMINOTRANSFERASE 26 U/L (12-78); ALBUMIN 2.4 g/dL (3.4-5.0); ALKALINE PHOSPHATASE 220 U/L (45-117); BILIRUBIN,TOTAL 0.4 mg/dL (0.2-1.0); PREALBUMIN 43.8 mg/dL (20.0-40.0); TOTAL PROTEIN 7.6 g/dL (6.4-8.2)
[2020-05-03 06:18] LABS: MD SCAN
[2020-05-03 06:32] VITALS: BP 95/65
[2020-05-03] MEDS: INSULIN REGULAR MEDIUM DOSE QDAY SQ-INSULIN SCH (07:26)
[2020-05-03] MEDS: OPIUM TINCTURE 1% 10 MG/ML ORAL.SOL PO SCH ×3 (09:05→20:54)
[2020-05-03] MEDS: DIPHENHYDRAMINE 50 MG/ML, 1ML IVPush PRN ×3 (09:19→21:55)
[2020-05-03 13:08] VITALS: BP 110/76
[2020-05-03] MEDS: ASPIRIN 325 MG TABLET PO SCH (15:47)
[2020-05-03] MEDS ORDERED: DEXTROSE 70% IV SCH (17:00)
[2020-05-03] MEDS ORDERED: [UNRECOGNIZED DRUG - OTHER] IV SCH (17:00)
[2020-05-03] MEDS ORDERED: FAT EMUL IV SCH (17:00)
[2020-05-03] MEDS ORDERED: AMINO ACID 10% IV SCH (17:00)
[2020-05-03] MEDS ORDERED: SMOF TPN IV SCH (17:00)
[2020-05-03] MEDS: FILTER, DISP 1.2 MICRON FOR TPN/PVN IV SCH (17:10)
[2020-05-03] MEDS: CALCITRIOL 1 MCG/ML SOL PO SCH (17:56)
[2020-05-03 19:46] VITALS: BP 111/76
[2020-05-03] MEDS: hydrOXyzine 10MG TABLET PO SCH (20:48)
[2020-05-04] MEDS: HYDROmorphone 1 MG/ML, 1ML INJ IV PRN ×9 (00:47→23:11)
[2020-05-04] MEDS: DIPHENHYDRAMINE 12.5MG/5ML, 10ML UDC PO SCH ×4 (01:00→20:36)
[2020-05-04 01:41] VITALS: BP 97/58
[2020-05-04] MEDS: PIPERACILLIN/TAZO/PMX 3.375GM 50 ML IV SCH ×4 (04:35→23:12)
[2020-05-04] MEDS: DIPHENHYDRAMINE 50 MG/ML, 1ML IVPush PRN ×4 (04:35→23:11)
[2020-05-04] MEDS: LORazepam INTENSOL 2 MG/ML PO SCH ×4 (04:50→23:12)
[2020-05-04 05:26] LABS: ANION GAP 5 mmol/L (5-15); CALCIUM 8.8 mg/dL (8.5-10.1); CHLORIDE 104 mmol/L (98-107); CREATININE 1.01 mg/dL (0.55-1.02)
[2020-05-04] MEDS: NYSTATIN 500,000 UNITS/5 ML UDC PO SCH ×4 (05:39→20:38)
[2020-05-04 06:34] VITALS: BP 103/73
[2020-05-04] MEDS: INSULIN REGULAR MEDIUM DOSE QDAY SQ-INSULIN SCH (09:00)
[2020-05-04] MEDS: OPIUM TINCTURE 1% 10 MG/ML ORAL.SOL PO SCH ×3 (09:00→20:38)
[2020-05-04 13:45] VITALS: BP 102/71
[2020-05-04] MEDS: SCOPOLAMINE PATCH, 1.5MG PATCH.TD72 TD SCH (16:49)
[2020-05-04] MEDS: ASPIRIN 325 MG TABLET PO SCH (16:59)
[2020-05-04] MEDS ORDERED: AMINO ACID 10% IV SCH (17:00)
[2020-05-04] MEDS ORDERED: FAT EMUL IV SCH (17:00)
[2020-05-04] MEDS ORDERED: SMOF TPN IV SCH (17:00)
[2020-05-04] MEDS ORDERED: [UNRECOGNIZED DRUG - OTHER] IV SCH (17:00)
[2020-05-04] MEDS ORDERED: DEXTROSE 70% IV SCH (17:00)
[2020-05-04] MEDS: FILTER, DISP 1.2 MICRON FOR TPN/PVN IV SCH (17:50)
[2020-05-04] MEDS: CALCITRIOL 1 MCG/ML SOL PO SCH (18:23)
[2020-05-04 19:50] VITALS: BP 113/72
[2020-05-04] MEDS: hydrOXyzine 10MG TABLET PO SCH (20:38)
[2020-05-05 00:59] VITALS: BP 121/82
[2020-05-05] MEDS: HYDROmorphone 1 MG/ML, 1ML INJ IV PRN ×9 (01:31→21:46)
[2020-05-05] MEDS: DIPHENHYDRAMINE 12.5MG/5ML, 10ML UDC PO SCH ×3 (01:41→14:00)
[2020-05-05 04:41] LABS: MEAN CORPUSCULAR HEMOGLOBIN 29.5 pg (27.0-34.8); MEAN CORPUSCULAR HGB CONC 33.8 g/dL (32.4-35.8); MEAN PLATELET VOLUME 9.7 fL (7.4-10.4); PLATELET COUNT 243 x10^3/uL (130-400); RED BLOOD COUNT 2.85 x10^6/uL (3.82-5.3); RED CELL DISTRIBUTION WIDTH 13.4 % (9.6-15.2)
[2020-05-05 04:46] LABS: INTERNATIONAL NORMALIZED RATIO 1.11 (0.93-1.1); PROTHROMBIN TIME 11.9 Seconds (9.6-11.5)
[2020-05-05 04:50] LABS: ALANINE AMINOTRANSFERASE 27 U/L (12-78); ALBUMIN 2.3 g/dL (3.4-5.0); ANION GAP 11 mmol/L (5-15); CALCIUM 8.9 mg/dL (8.5-10.1); CHLORIDE 105 mmol/L (98-107); CREATININE 1.02 mg/dL (0.55-1.02)
[2020-05-05 04:53] LABS: ALKALINE PHOSPHATASE 216 U/L (45-117); BILIRUBIN,TOTAL 0.4 mg/dL (0.2-1.0); TOTAL PROTEIN 7.9 g/dL (6.4-8.2)
[2020-05-05] MEDS: NYSTATIN 500,000 UNITS/5 ML UDC PO SCH ×4 (05:22→21:00)
[2020-05-05] MEDS: DIPHENHYDRAMINE 50 MG/ML, 1ML IVPush PRN ×3 (05:22→16:39)
[2020-05-05] MEDS: LORazepam INTENSOL 2 MG/ML PO SCH ×4 (05:22→22:39)
[2020-05-05] MEDS: PIPERACILLIN/TAZO/PMX 3.375GM 50 ML IV SCH ×4 (05:22→22:38)
[2020-05-05 05:43] LABS: MD YES
[2020-05-05 05:44] LABS: METAMYELOCYTES# (MANUAL) 0.15 x10^3/uL (0-0); METAMYELOCYTES% (MANUAL) 1 % (0-1); MONOS#(MANUAL) 0.73 x10^3/uL (0.3-2.7); MONOS% (MANUAL) 5 % (2-9); MYELOCYTES# (MANUAL) 0.15 x10^3/uL (0-0); MYELOCYTES% (MANUAL) 1 % (0-0)
[2020-05-05 05:45] LABS: <RBC MORPHOLOGY> NORMAL; BAND#(MANUAL) 0.58 x10^3/uL; BANDS%(MANUAL) 4 % (0-7); EOS#(MANUAL) 0.58 x10^3/uL (0.0-0.4); EOS% (MANUAL) 4 % (1-7); LYMPH#(MANUAL) 0.58 x10^3/uL (1-3.4); LYMPHS% (MANUAL) 4 % (22-44); SEG#(MANUAL) 11.83 x10^3/uL (1.8-6.8); SEGS% (MANUAL) 81 % (42-75)
[2020-05-05 05:46] LABS: <PLATELET ESTIMATE> ADEQUATE; <PLT MORPHOLOGY> NORMAL PLT MORPH
[2020-05-05 06:52] VITALS: BP 110/77
[2020-05-05] MEDS: OPIUM TINCTURE 1% 10 MG/ML ORAL.SOL PO SCH ×3 (08:35→21:00)
[2020-05-05] MEDS: INSULIN REGULAR MEDIUM DOSE QDAY SQ-INSULIN SCH (09:00)
[2020-05-05] MEDS ORDERED: CHLORHEXIDINE 15 ML UDC MM ONE (12:00)
[2020-05-05 12:55] VITALS: BP 95/72
[2020-05-05] MEDS ORDERED: PROPOFOL 10 MG/ML, 20ML ONE (13:33)
[2020-05-05] MEDS ORDERED: ONDANSETRON 2MG/ML, 2ML ONE (13:33)
[2020-05-05] MEDS ORDERED: DEXAMETHASONE 4 MG/ML, 1ML ONE (13:33)
[2020-05-05] MEDS ORDERED: ROCURONIUM 10 MG/ML,10ML ONE (13:33)
[2020-05-05] MEDS ORDERED: NEOSTIGMINE 1 MG/ML, 10ML ONE (13:33)
[2020-05-05] MEDS ORDERED: SUGAMMADEX 200 MG/2 ML IVPush ONE (13:33)
[2020-05-05] MEDS ORDERED: GLYCOPYRROLATE 0.2MG/1ML, 5ML ONE (13:33)
[2020-05-05] MEDS: ASPIRIN 325 MG TABLET PO SCH (16:00)
[2020-05-05] MEDS ORDERED: AMINO ACID 10% IV SCH (17:00)
[2020-05-05] MEDS ORDERED: FILTER, DISP 1.2 MICRON FOR TPN/PVN IV SCH (17:00)
[2020-05-05] MEDS ORDERED: FAT EMUL IV SCH (17:00)
[2020-05-05] MEDS ORDERED: [UNRECOGNIZED DRUG - OTHER] IV SCH (17:00)
[2020-05-05] MEDS ORDERED: DEXTROSE 70% IV SCH (17:00)
[2020-05-05] MEDS ORDERED: SMOF TPN IV SCH (17:00)
[2020-05-05] MEDS: CALCITRIOL 1 MCG/ML SOL PO SCH (17:25)
[2020-05-05 19:30] VITALS: BP 116/73
[2020-05-05] MEDS: hydrOXyzine 10MG TABLET PO SCH (21:00)
[2020-05-05] MEDS ORDERED: LORazepam 0.5MG TABLET ONE (22:36)
[2020-05-06] VITALS (9 sets, daily range): BP systolic 93–123; BP diastolic 58–85
[2020-05-06] MEDS: DIPHENHYDRAMINE 50 MG/ML, 1ML IVPush PRN ×4 (01:27→19:39)
[2020-05-06] MEDS: HYDROmorphone 1 MG/ML, 1ML INJ IV PRN ×10 (01:27→22:00)
[2020-05-06] MEDS: DIPHENHYDRAMINE 12.5MG/5ML, 10ML UDC PO SCH ×4 (02:00→19:39)
[2020-05-06] MEDS: LORazepam INTENSOL 2 MG/ML PO SCH ×4 (04:43→23:21)
[2020-05-06] MEDS: PIPERACILLIN/TAZO/PMX 3.375GM 50 ML IV SCH ×4 (04:43→23:21)
[2020-05-06] MEDS: NYSTATIN 500,000 UNITS/5 ML UDC PO SCH ×4 (05:38→21:59)
[2020-05-06 06:08] LABS: MEAN CORPUSCULAR HGB CONC 34.5 g/dL (32.4-35.8); MEAN PLATELET VOLUME 9.8 fL (7.4-10.4); PLATELET COUNT 234 x10^3/uL (130-400); RED BLOOD COUNT 2.53 x10^6/uL (3.82-5.3); RED CELL DISTRIBUTION WIDTH 13.7 % (9.6-15.2)
[2020-05-06 06:39] LABS: MD YES
[2020-05-06 06:40] LABS: BAND#(MANUAL) 0.14 x10^3/uL; BANDS%(MANUAL) 1 % (0-7); EOS#(MANUAL) 0.29 x10^3/uL (0.0-0.4); EOS% (MANUAL) 2 % (1-7); LYMPH#(MANUAL) 1.15 x10^3/uL (1-3.4); LYMPHS% (MANUAL) 8 % (22-44); MONOS#(MANUAL) 1.15 x10^3/uL (0.3-2.7); MONOS% (MANUAL) 8 % (2-9); MYELOCYTES# (MANUAL) 0.14 x10^3/uL (0-0); MYELOCYTES% (MANUAL) 1 % (0-0); SEG#(MANUAL) 11.52 x10^3/uL (1.8-6.8); SEGS% (MANUAL) 80 % (42-75)
[2020-05-06 06:41] LABS: <PLATELET ESTIMATE> ADEQUATE; <PLT MORPHOLOGY> NORMAL PLT MORPH; <RBC MORPHOLOGY> NORMAL
[2020-05-06] MEDS: OPIUM TINCTURE 1% 10 MG/ML ORAL.SOL PO SCH ×3 (08:19→22:11)
[2020-05-06] MEDS: INSULIN REGULAR MEDIUM DOSE QDAY SQ-INSULIN SCH (08:19)
[2020-05-06] MEDS: ASPIRIN 325 MG TABLET PO SCH (16:11)
[2020-05-06] MEDS ORDERED: FAT EMUL IV SCH (17:00)
[2020-05-06] MEDS ORDERED: DEXTROSE 70% IV SCH (17:00)
[2020-05-06] MEDS ORDERED: [UNRECOGNIZED DRUG - OTHER] IV SCH (17:00)
[2020-05-06] MEDS ORDERED: AMINO ACID 10% IV SCH (17:00)
[2020-05-06] MEDS ORDERED: SMOF TPN IV SCH (17:00)
[2020-05-06] MEDS ORDERED: FILTER, DISP 1.2 MICRON FOR TPN/PVN IV SCH (17:00)
[2020-05-06] MEDS: CALCITRIOL 1 MCG/ML SOL PO SCH (17:34)
[2020-05-06] MEDS: hydrOXyzine 10MG TABLET PO SCH (19:40)
[2020-05-07 01:12] VITALS: BP 108/73
[2020-05-07] MEDS: DIPHENHYDRAMINE 12.5MG/5ML, 10ML UDC PO SCH ×4 (02:00→19:57)
[2020-05-07] MEDS: DIPHENHYDRAMINE 50 MG/ML, 1ML IVPush PRN ×4 (02:17→19:57)
[2020-05-07] MEDS: HYDROmorphone 1 MG/ML, 1ML INJ IV PRN ×6 (03:48→18:02)
[2020-05-07] MEDS: NYSTATIN 500,000 UNITS/5 ML UDC PO SCH ×4 (05:12→22:09)
[2020-05-07] MEDS: PIPERACILLIN/TAZO/PMX 3.375GM 50 ML IV SCH ×4 (05:12→23:02)
[2020-05-07] MEDS: LORazepam INTENSOL 2 MG/ML PO SCH ×4 (05:12→23:07)
[2020-05-07 06:30] LABS: MEAN CORPUSCULAR HEMOGLOBIN 30.2 pg (27.0-34.8); MEAN CORPUSCULAR HGB CONC 34.9 g/dL (32.4-35.8); MEAN PLATELET VOLUME 9.8 fL (7.4-10.4); PLATELET COUNT 249 x10^3/uL (130-400); RED BLOOD COUNT 3.86 x10^6/uL (3.82-5.3); RED CELL DISTRIBUTION WIDTH 13.9 % (9.6-15.2)
[2020-05-07 06:41] LABS: ANION GAP 9 mmol/L (5-15); CALCIUM 9.2 mg/dL (8.5-10.1); CHLORIDE 107 mmol/L (98-107); CREATININE 0.93 mg/dL (0.55-1.02)
[2020-05-07 06:58] LABS: MD YES
[2020-05-07 07:00] LABS: BAND#(MANUAL) 0.15 x10^3/uL; BANDS%(MANUAL) 2 % (0-7); EOS% (MANUAL) 4 % (1-7); LYMPHS% (MANUAL) 12 % (22-44); METAMYELOCYTES# (MANUAL) 0.08 x10^3/uL (0-0); METAMYELOCYTES% (MANUAL) 1 % (0-1); MONOS#(MANUAL) 0.38 x10^3/uL (0.3-2.7); MONOS% (MANUAL) 5 % (2-9); MYELOCYTES# (MANUAL) 0.08 x10^3/uL (0-0); MYELOCYTES% (MANUAL) 1 % (0-0); SEG#(MANUAL) 5.63 x10^3/uL (1.8-6.8); SEGS% (MANUAL) 75 % (42-75)
[2020-05-07 07:01] LABS: <PLATELET ESTIMATE> ADEQUATE; <PLT MORPHOLOGY> NORMAL PLT MORPH; <RBC MORPHOLOGY> NORMAL
[2020-05-07] MEDS: INSULIN REGULAR MEDIUM DOSE QDAY SQ-INSULIN SCH (07:31)
[2020-05-07] MEDS: OPIUM TINCTURE 1% 10 MG/ML ORAL.SOL PO SCH ×3 (09:00→22:09)
[2020-05-07 09:20] VITALS: BP 124/86
[2020-05-07] MEDS ORDERED: LORazepam 2 MG/ML, 1ML ONE (11:17)
[2020-05-07 13:15] VITALS: BP 114/80
[2020-05-07] MEDS: ASPIRIN 325 MG TABLET PO SCH (15:49)
[2020-05-07] MEDS: SCOPOLAMINE PATCH, 1.5MG PATCH.TD72 TD SCH (15:50)
[2020-05-07] MEDS: FILTER, DISP 1.2 MICRON FOR TPN/PVN IV SCH (16:42)
[2020-05-07] MEDS ORDERED: FAT EMUL IV SCH (17:00)
[2020-05-07] MEDS ORDERED: SMOF TPN IV SCH (17:00)
[2020-05-07] MEDS ORDERED: [UNRECOGNIZED DRUG - OTHER] IV SCH (17:00)
[2020-05-07] MEDS ORDERED: DEXTROSE 70% IV SCH (17:00)
[2020-05-07] MEDS ORDERED: AMINO ACID 10% IV SCH (17:00)
[2020-05-07] MEDS: CALCITRIOL 1 MCG/ML SOL PO SCH (18:31)
[2020-05-07 18:44] VITALS: BP 114/76
[2020-05-07] MEDS: hydrOXyzine 10MG TABLET PO SCH (22:09)
[2020-05-08 01:47] VITALS: BP 133/82
[2020-05-08] MEDS: DIPHENHYDRAMINE 50 MG/ML, 1ML IVPush PRN ×4 (01:56→20:01)
[2020-05-08] MEDS: DIPHENHYDRAMINE 12.5MG/5ML, 10ML UDC PO SCH ×4 (01:57→20:01)
[2020-05-08] MEDS: PIPERACILLIN/TAZO/PMX 3.375GM 50 ML IV SCH ×4 (05:20→22:59)
[2020-05-08] MEDS: HYDROmorphone 1 MG/ML, 1ML INJ IV PRN ×7 (05:24→23:54)
[2020-05-08] MEDS: LORazepam INTENSOL 2 MG/ML PO SCH ×4 (06:09→22:59)
[2020-05-08] MEDS: NYSTATIN 500,000 UNITS/5 ML UDC PO SCH ×4 (06:09→21:14)
[2020-05-08 06:33] LABS: BASOPHILS % (AUTO) 0 % (0-1); EOSINOPHILS % (AUTO) 4 % (1-7); LYMPHOCYTES % (AUTO) 7 % (22-44); MEAN CORPUSCULAR HEMOGLOBIN 30.3 pg (27.0-34.8); MEAN CORPUSCULAR HGB CONC 34.8 g/dL (32.4-35.8); MEAN PLATELET VOLUME 9.9 fL (7.4-10.4); MONOCYTES % (AUTO) 6 % (2-9); NEUTROPHILS % (AUTO) 83 % (42-75); PLATELET COUNT 300 x10^3/uL (130-400); RED BLOOD COUNT 4.12 x10^6/uL (3.82-5.3); RED CELL DISTRIBUTION WIDTH 14.6 % (9.6-15.2)
[2020-05-08 06:34] LABS: MD NO
[2020-05-08 06:37] LABS: ALBUMIN 2.4 g/dL (3.4-5.0); ANION GAP 6 mmol/L (5-15); CALCIUM 9.6 mg/dL (8.5-10.1); CHLORIDE 104 mmol/L (98-107)
[2020-05-08 06:40] LABS: ALANINE AMINOTRANSFERASE 32 U/L (12-78); ALKALINE PHOSPHATASE 221 U/L (45-117); BILIRUBIN,TOTAL 0.6 mg/dL (0.2-1.0); CREATININE 1.03 mg/dL (0.55-1.02); TOTAL PROTEIN 8.2 g/dL (6.4-8.2)
[2020-05-08] MEDS: INSULIN REGULAR MEDIUM DOSE QDAY SQ-INSULIN SCH (07:38)
[2020-05-08 09:29] VITALS: BP 101/70
[2020-05-08] MEDS: OPIUM TINCTURE 1% 10 MG/ML ORAL.SOL PO SCH ×3 (09:50→21:14)
[2020-05-08 15:00] VITALS: BP 108/76
[2020-05-08] MEDS: FILTER, DISP 1.2 MICRON FOR TPN/PVN IV SCH (16:51)
[2020-05-08] MEDS ORDERED: AMINO ACID 10% IV SCH ×2 (17:00)
[2020-05-08] MEDS ORDERED: SMOF TPN IV SCH ×2 (17:00)
[2020-05-08] MEDS ORDERED: FAT EMUL IV SCH ×2 (17:00)
[2020-05-08] MEDS ORDERED: [UNRECOGNIZED DRUG - OTHER] IV SCH ×2 (17:00)
[2020-05-08] MEDS ORDERED: DEXTROSE 70% IV SCH ×2 (17:00)
[2020-05-08] MEDS: ASPIRIN 325 MG TABLET PO SCH (17:06)
[2020-05-08] MEDS: CALCITRIOL 1 MCG/ML SOL PO SCH (17:51)
[2020-05-08 18:55] VITALS: BP 113/79
[2020-05-08] MEDS: hydrOXyzine 10MG TABLET PO SCH (21:14)
[2020-05-09 01:23] VITALS: BP 128/78
[2020-05-09] MEDS: DIPHENHYDRAMINE 12.5MG/5ML, 10ML UDC PO SCH ×4 (02:25→20:00)
[2020-05-09] MEDS: DIPHENHYDRAMINE 50 MG/ML, 1ML IVPush PRN ×4 (02:25→20:04)
[2020-05-09] MEDS: HYDROmorphone 1 MG/ML, 1ML INJ IV PRN ×5 (03:07→20:15)
[2020-05-09] MEDS: PIPERACILLIN/TAZO/PMX 3.375GM 50 ML IV SCH ×4 (05:04→22:57)
[2020-05-09] MEDS: LORazepam INTENSOL 2 MG/ML PO SCH ×4 (05:05→22:57)
[2020-05-09 05:47] LABS: ANION GAP 9 mmol/L (5-15); CALCIUM 9.3 mg/dL (8.5-10.1); CHLORIDE 100 mmol/L (98-107)
[2020-05-09 05:48] LABS: CREATININE 0.97 mg/dL (0.55-1.02)
[2020-05-09] MEDS: NYSTATIN 500,000 UNITS/5 ML UDC PO SCH ×4 (06:12→20:04)
[2020-05-09] MEDS: INSULIN REGULAR MEDIUM DOSE QDAY SQ-INSULIN SCH (07:26)
[2020-05-09 09:21] VITALS: BP 112/82
[2020-05-09] MEDS: OPIUM TINCTURE 1% 10 MG/ML ORAL.SOL PO SCH ×3 (10:27→20:05)
[2020-05-09 13:29] VITALS: BP 100/70
[2020-05-09] MEDS: ASPIRIN 325 MG TABLET PO SCH (15:36)
[2020-05-09] MEDS ORDERED: [UNRECOGNIZED DRUG - OTHER] IV SCH (17:00)
[2020-05-09] MEDS ORDERED: FAT EMUL IV SCH (17:00)
[2020-05-09] MEDS ORDERED: AMINO ACID 10% IV SCH (17:00)
[2020-05-09] MEDS ORDERED: SMOF TPN IV SCH (17:00)
[2020-05-09] MEDS ORDERED: DEXTROSE 70% IV SCH (17:00)
[2020-05-09] MEDS: FILTER, DISP 1.2 MICRON FOR TPN/PVN IV SCH (17:23)
[2020-05-09] MEDS: CALCITRIOL 1 MCG/ML SOL PO SCH (17:26)
[2020-05-09 19:06] VITALS: BP 101/71
[2020-05-09] MEDS: hydrOXyzine 10MG TABLET PO SCH (20:05)
[2020-05-10] MEDS: HYDROmorphone 1 MG/ML, 1ML INJ IV PRN ×4 (01:46→22:07)
[2020-05-10] MEDS: DIPHENHYDRAMINE 50 MG/ML, 1ML IVPush PRN ×4 (01:46→21:02)
[2020-05-10] MEDS: DIPHENHYDRAMINE 12.5MG/5ML, 10ML UDC PO SCH ×4 (01:54→19:38)
[2020-05-10 02:32] VITALS: BP 97/67
[2020-05-10] MEDS: NYSTATIN 500,000 UNITS/5 ML UDC PO SCH ×4 (05:12→20:50)
[2020-05-10] MEDS: LORazepam INTENSOL 2 MG/ML PO SCH ×4 (05:12→23:35)
[2020-05-10] MEDS: PIPERACILLIN/TAZO/PMX 3.375GM 50 ML IV SCH ×4 (05:12→23:35)
[2020-05-10 05:35] LABS: BASOPHILS % (AUTO) 1 % (0-1); EOSINOPHILS % (AUTO) 5 % (1-7); LYMPHOCYTES % (AUTO) 9 % (22-44); MEAN CORPUSCULAR HGB CONC 34.3 g/dL (32.4-35.8); MEAN PLATELET VOLUME 9.1 fL (7.4-10.4); MONOCYTES % (AUTO) 8 % (2-9); NEUTROPHILS % (AUTO) 77 % (42-75); PLATELET COUNT 278 x10^3/uL (130-400); RED BLOOD COUNT 4.07 x10^6/uL (3.82-5.3); RED CELL DISTRIBUTION WIDTH 14.4 % (9.6-15.2)
[2020-05-10 05:44] LABS: ALANINE AMINOTRANSFERASE 22 U/L (12-78); ALBUMIN 2.3 g/dL (3.4-5.0); ANION GAP 7 mmol/L (5-15); CALCIUM 9.2 mg/dL (8.5-10.1); CHLORIDE 103 mmol/L (98-107); CREATININE 1.06 mg/dL (0.55-1.02); TRIGLYCERIDES 281 mg/dL (50-200)
[2020-05-10 05:46] LABS: ALKALINE PHOSPHATASE 199 U/L (45-117); BILIRUBIN,TOTAL 0.3 mg/dL (0.2-1.0); PREALBUMIN 26.8 mg/dL (20.0-40.0); TOTAL PROTEIN 8.2 g/dL (6.4-8.2)
[2020-05-10 05:48] LABS: MD NO
[2020-05-10 06:39] VITALS: BP 99/67
[2020-05-10] MEDS: INSULIN REGULAR MEDIUM DOSE QDAY SQ-INSULIN SCH (07:29)
[2020-05-10] MEDS: OPIUM TINCTURE 1% 10 MG/ML ORAL.SOL PO SCH ×3 (08:59→20:50)
[2020-05-10 14:01] VITALS: BP 111/80
[2020-05-10] MEDS ORDERED: ASPIRIN 325 MG TABLET PO SCH (16:00)
[2020-05-10] MEDS: FILTER, DISP 1.2 MICRON FOR TPN/PVN IV SCH (17:00)
[2020-05-10] MEDS ORDERED: AMINO ACID 10% IV SCH (17:00)
[2020-05-10] MEDS ORDERED: [UNRECOGNIZED DRUG - OTHER] IV SCH (17:00)
[2020-05-10] MEDS ORDERED: SMOF TPN IV SCH (17:00)
[2020-05-10] MEDS ORDERED: FAT EMUL IV SCH (17:00)
[2020-05-10] MEDS ORDERED: DEXTROSE 70% IV SCH (17:00)
[2020-05-10] MEDS: SCOPOLAMINE PATCH, 1.5MG PATCH.TD72 TD SCH (17:10)
[2020-05-10] MEDS: CALCITRIOL 1 MCG/ML SOL PO SCH (18:00)
[2020-05-10 18:37] VITALS: BP 103/72
[2020-05-10] MEDS: hydrOXyzine 10MG TABLET PO SCH (20:50)
[2020-05-11 01:22] VITALS: BP 107/74
[2020-05-11] MEDS: DIPHENHYDRAMINE 12.5MG/5ML, 10ML UDC PO SCH ×4 (01:39→19:20)
[2020-05-11] MEDS: DIPHENHYDRAMINE 50 MG/ML, 1ML IVPush PRN ×4 (03:54→22:59)
[2020-05-11] MEDS: HYDROmorphone 1 MG/ML, 1ML INJ IV PRN ×5 (04:08→23:23)
[2020-05-11] MEDS: NYSTATIN 500,000 UNITS/5 ML UDC PO SCH ×4 (05:17→20:33)
[2020-05-11] MEDS: LORazepam INTENSOL 2 MG/ML PO SCH ×4 (05:17→22:59)
[2020-05-11 05:44] LABS: BASOPHILS % (AUTO) 1 % (0-1); EOSINOPHILS % (AUTO) 3 % (1-7); LYMPHOCYTES % (AUTO) 5 % (22-44); MEAN CORPUSCULAR HEMOGLOBIN 30.2 pg (27.0-34.8); MEAN CORPUSCULAR HGB CONC 33.8 g/dL (32.4-35.8); MEAN PLATELET VOLUME 9.5 fL (7.4-10.4); MONOCYTES % (AUTO) 6 % (2-9); NEUTROPHILS % (AUTO) 85 % (42-75); PLATELET COUNT 298 x10^3/uL (130-400); RED BLOOD COUNT 3.96 x10^6/uL (3.82-5.3); RED CELL DISTRIBUTION WIDTH 14.4 % (9.6-15.2)
[2020-05-11 05:47] LABS: MD NO
[2020-05-11 05:53] LABS: ALBUMIN 2.3 g/dL (3.4-5.0); ANION GAP 9 mmol/L (5-15); CALCIUM 9.4 mg/dL (8.5-10.1); CHLORIDE 105 mmol/L (98-107)
[2020-05-11 06:00] LABS: ALANINE AMINOTRANSFERASE 23 U/L (12-78); ALKALINE PHOSPHATASE 209 U/L (45-117); BILIRUBIN,TOTAL 0.3 mg/dL (0.2-1.0); CREATININE 1.07 mg/dL (0.55-1.02); PREALBUMIN 27.8 mg/dL (20.0-40.0); TOTAL PROTEIN 8.2 g/dL (6.4-8.2); TRIGLYCERIDES 286 mg/dL (50-200)
[2020-05-11 06:53] VITALS: BP 99/70
[2020-05-11] MEDS: INSULIN REGULAR MEDIUM DOSE QDAY SQ-INSULIN SCH (07:52)
[2020-05-11] MEDS: OPIUM TINCTURE 1% 10 MG/ML ORAL.SOL PO SCH ×3 (09:12→20:36)
[2020-05-11] MEDS: PROCHLORPERAZINE 5 MG/ML, 2ML IVPush PRN (11:12)
[2020-05-11 12:41] VITALS: BP 109/77
[2020-05-11] MEDS: FILTER, DISP 1.2 MICRON FOR TPN/PVN IV SCH (16:11)
[2020-05-11] MEDS ORDERED: FAT EMUL IV SCH (17:00)
[2020-05-11] MEDS ORDERED: [UNRECOGNIZED DRUG - OTHER] IV SCH (17:00)
[2020-05-11] MEDS ORDERED: DEXTROSE 70% IV SCH (17:00)
[2020-05-11] MEDS ORDERED: AMINO ACID 10% IV SCH (17:00)
[2020-05-11] MEDS ORDERED: SMOF TPN IV SCH (17:00)
[2020-05-11] MEDS: CALCITRIOL 1 MCG/ML SOL PO SCH (18:15)
[2020-05-11 19:25] VITALS: BP 113/76
[2020-05-11] MEDS: hydrOXyzine 10MG TABLET PO SCH (20:33)
[2020-05-12 00:57] VITALS: BP 113/74
[2020-05-12] MEDS: DIPHENHYDRAMINE 12.5MG/5ML, 10ML UDC PO SCH ×4 (01:33→19:57)
[2020-05-12] MEDS: LORazepam INTENSOL 2 MG/ML PO SCH ×4 (04:44→23:48)
[2020-05-12 04:57] LABS: BASOPHILS % (AUTO) 2 % (0-1); EOSINOPHILS % (AUTO) 5 % (1-7); LYMPHOCYTES % (AUTO) 15 % (22-44); MEAN CORPUSCULAR HEMOGLOBIN 30.2 pg (27.0-34.8); MEAN CORPUSCULAR HGB CONC 34.1 g/dL (32.4-35.8); MEAN PLATELET VOLUME 9.2 fL (7.4-10.4); MONOCYTES % (AUTO) 10 % (2-9); NEUTROPHILS % (AUTO) 69 % (42-75); PLATELET COUNT 269 x10^3/uL (130-400); RED BLOOD COUNT 3.69 x10^6/uL (3.82-5.3); RED CELL DISTRIBUTION WIDTH 14.8 % (9.6-15.2)
[2020-05-12 05:00] LABS: MD NO
[2020-05-12 05:04] LABS: ANION GAP 7 mmol/L (5-15); CALCIUM 9.7 mg/dL (8.5-10.1); CHLORIDE 105 mmol/L (98-107); CREATININE 0.92 mg/dL (0.55-1.02)
[2020-05-12] MEDS: NYSTATIN 500,000 UNITS/5 ML UDC PO SCH ×4 (06:06→21:34)
[2020-05-12] MEDS: DIPHENHYDRAMINE 50 MG/ML, 1ML IVPush PRN ×3 (06:11→18:36)
[2020-05-12] MEDS: INSULIN REGULAR MEDIUM DOSE QDAY SQ-INSULIN SCH (06:47)
[2020-05-12 06:56] VITALS: BP 111/76
[2020-05-12] MEDS: OPIUM TINCTURE 1% 10 MG/ML ORAL.SOL PO SCH ×3 (09:03→21:34)
[2020-05-12] MEDS: HYDROmorphone 1 MG/ML, 1ML INJ IV PRN ×3 (09:03→21:45)
[2020-05-12 13:24] VITALS: BP 110/79
[2020-05-12] MEDS ORDERED: FAT EMUL IV SCH (17:00)
[2020-05-12] MEDS ORDERED: AMINO ACID 10% IV SCH (17:00)
[2020-05-12] MEDS ORDERED: DEXTROSE 70% IV SCH (17:00)
[2020-05-12] MEDS ORDERED: FILTER, DISP 1.2 MICRON FOR TPN/PVN IV SCH (17:00)
[2020-05-12] MEDS ORDERED: [UNRECOGNIZED DRUG - OTHER] IV SCH (17:00)
[2020-05-12] MEDS ORDERED: SMOF TPN IV SCH (17:00)
[2020-05-12] MEDS: CALCITRIOL 1 MCG/ML SOL PO SCH (17:33)
[2020-05-12] MEDS: FENTANYL 12 MCG PATCH TD SCH (17:38)
[2020-05-12 18:53] VITALS: BP 112/82
[2020-05-12] MEDS: hydrOXyzine 10MG TABLET PO SCH (21:34)
[2020-05-13 00:45] VITALS: BP 126/87
[2020-05-13] MEDS: DIPHENHYDRAMINE 50 MG/ML, 1ML IVPush PRN ×4 (00:47→20:35)
[2020-05-13] MEDS: DIPHENHYDRAMINE 12.5MG/5ML, 10ML UDC PO SCH ×4 (01:18→20:00)
[2020-05-13] MEDS: HYDROmorphone 1 MG/ML, 1ML INJ IV PRN ×6 (02:05→22:55)
[2020-05-13] MEDS: NYSTATIN 500,000 UNITS/5 ML UDC PO SCH ×4 (06:09→20:36)
[2020-05-13] MEDS: LORazepam INTENSOL 2 MG/ML PO SCH ×4 (06:09→22:53)
[2020-05-13 06:10] LABS: BASOPHILS % (AUTO) 1 % (0-1); EOSINOPHILS % (AUTO) 2 % (1-7); LYMPHOCYTES % (AUTO) 8 % (22-44); MEAN CORPUSCULAR HEMOGLOBIN 30.3 pg (27.0-34.8); MEAN CORPUSCULAR HGB CONC 34.1 g/dL (32.4-35.8); MEAN PLATELET VOLUME 9.2 fL (7.4-10.4); MONOCYTES % (AUTO) 7 % (2-9); NEUTROPHILS % (AUTO) 83 % (42-75); PLATELET COUNT 315 x10^3/uL (130-400); RED BLOOD COUNT 3.94 x10^6/uL (3.82-5.3); RED CELL DISTRIBUTION WIDTH 14.7 % (9.6-15.2)
[2020-05-13 06:13] LABS: MD NO
[2020-05-13 06:23] LABS: ALANINE AMINOTRANSFERASE 41 U/L (12-78); ALBUMIN 2.4 g/dL (3.4-5.0); ANION GAP 9 mmol/L (5-15); CALCIUM 9.2 mg/dL (8.5-10.1); CHLORIDE 106 mmol/L (98-107); CREATININE 0.98 mg/dL (0.55-1.02)
[2020-05-13 06:25] LABS: ALKALINE PHOSPHATASE 240 U/L (45-117); BILIRUBIN,TOTAL 0.3 mg/dL (0.2-1.0); TOTAL PROTEIN 8.2 g/dL (6.4-8.2)
[2020-05-13 07:03] VITALS: BP 108/76
[2020-05-13] MEDS: OPIUM TINCTURE 1% 10 MG/ML ORAL.SOL PO SCH ×3 (08:45→20:36)
[2020-05-13] MEDS: INSULIN REGULAR MEDIUM DOSE QDAY SQ-INSULIN SCH (08:47)
[2020-05-13 13:27] VITALS: BP 114/81
[2020-05-13] MEDS ORDERED: AMINO ACID 10% IV SCH (17:00)
[2020-05-13] MEDS ORDERED: FAT EMUL IV SCH (17:00)
[2020-05-13] MEDS ORDERED: FILTER, DISP 1.2 MICRON FOR TPN/PVN IV SCH (17:00)
[2020-05-13] MEDS ORDERED: [UNRECOGNIZED DRUG - OTHER] IV SCH (17:00)
[2020-05-13] MEDS ORDERED: DEXTROSE 70% IV SCH (17:00)
[2020-05-13] MEDS ORDERED: SMOF TPN IV SCH (17:00)
[2020-05-13] MEDS: SCOPOLAMINE PATCH, 1.5MG PATCH.TD72 TD SCH (17:13)
[2020-05-13] MEDS: CALCITRIOL 1 MCG/ML SOL PO SCH (17:13)
[2020-05-13 19:33] VITALS: BP 115/83
[2020-05-13] MEDS: hydrOXyzine 10MG TABLET PO SCH (20:36)
[2020-05-14 01:01] VITALS: BP 117/83
[2020-05-14] MEDS: DIPHENHYDRAMINE 12.5MG/5ML, 10ML UDC PO SCH ×4 (01:46→19:16)
[2020-05-14] MEDS: HYDROmorphone 1 MG/ML, 1ML INJ IV PRN ×5 (02:39→21:21)
[2020-05-14] MEDS: DIPHENHYDRAMINE 50 MG/ML, 1ML IVPush PRN ×4 (02:40→21:21)
[2020-05-14] MEDS: LORazepam INTENSOL 2 MG/ML PO SCH ×4 (05:37→23:11)
[2020-05-14] MEDS: NYSTATIN 500,000 UNITS/5 ML UDC PO SCH ×4 (05:37→22:06)
[2020-05-14 07:35] VITALS: BP 122/88
[2020-05-14] MEDS: OPIUM TINCTURE 1% 10 MG/ML ORAL.SOL PO SCH ×3 (09:11→22:06)
[2020-05-14] MEDS: INSULIN REGULAR MEDIUM DOSE QDAY SQ-INSULIN SCH (09:17)
[2020-05-14 14:20] VITALS: BP 114/81
[2020-05-14] MEDS ORDERED: OMNIPAQUE 350 MG/ML, 100ML BOTTLE ONE (15:03)
[2020-05-14] MEDS ORDERED: DEXTROSE 70% IV SCH ×2 (17:00)
[2020-05-14] MEDS ORDERED: AMINO ACID 10% IV SCH ×2 (17:00)
[2020-05-14] MEDS ORDERED: FAT EMUL IV SCH ×2 (17:00)
[2020-05-14] MEDS ORDERED: SMOF TPN IV SCH ×2 (17:00)
[2020-05-14] MEDS ORDERED: [UNRECOGNIZED DRUG - OTHER] IV SCH ×2 (17:00)
[2020-05-14] MEDS: FILTER, DISP 1.2 MICRON FOR TPN/PVN IV SCH (17:21)
[2020-05-14] MEDS: CALCITRIOL 1 MCG/ML SOL PO SCH (17:25)
[2020-05-14 19:24] VITALS: BP 103/71
[2020-05-14] MEDS: hydrOXyzine 10MG TABLET PO SCH (22:07)
[2020-05-15 00:01] VITALS: BP 113/76
[2020-05-15] MEDS: DIPHENHYDRAMINE 12.5MG/5ML, 10ML UDC PO SCH ×4 (01:03→19:25)
[2020-05-15] MEDS: HYDROmorphone 1 MG/ML, 1ML INJ IV PRN ×6 (01:24→23:32)
[2020-05-15] MEDS: DIPHENHYDRAMINE 50 MG/ML, 1ML IVPush PRN ×4 (03:23→22:19)
[2020-05-15] MEDS: LORazepam INTENSOL 2 MG/ML PO SCH ×3 (04:40→16:38)
[2020-05-15] MEDS: NYSTATIN 500,000 UNITS/5 ML UDC PO SCH ×4 (05:30→21:09)
[2020-05-15 05:57] LABS: ANION GAP 9 mmol/L (5-15); CALCIUM 9.8 mg/dL (8.5-10.1); CHLORIDE 104 mmol/L (98-107); CREATININE 0.94 mg/dL (0.55-1.02)
[2020-05-15] MEDS: INSULIN REGULAR MEDIUM DOSE QDAY SQ-INSULIN SCH (07:12)
[2020-05-15] MEDS: OPIUM TINCTURE 1% 10 MG/ML ORAL.SOL PO SCH ×3 (09:28→21:10)
[2020-05-15 10:13] VITALS: BP 105/74
[2020-05-15] MEDS: ONDANSETRON 2MG/ML, 2ML IVPush PRN (11:31)
[2020-05-15 14:32] VITALS: BP 113/84
[2020-05-15] MEDS: FILTER, DISP 1.2 MICRON FOR TPN/PVN IV SCH (16:10)
[2020-05-15] MEDS: CALCITRIOL 1 MCG/ML SOL PO SCH (16:38)
[2020-05-15] MEDS ORDERED: FAT EMUL IV SCH (17:00)
[2020-05-15] MEDS ORDERED: SMOF TPN IV SCH (17:00)
[2020-05-15] MEDS ORDERED: AMINO ACID 10% IV SCH (17:00)
[2020-05-15] MEDS ORDERED: [UNRECOGNIZED DRUG - OTHER] IV SCH (17:00)
[2020-05-15] MEDS ORDERED: DEXTROSE 70% IV SCH (17:00)
[2020-05-15] MEDS: FENTANYL 12 MCG PATCH TD SCH (17:18)
[2020-05-15] MEDS: FENTANYL REMOVE PATCH NOTE XX SCH (17:20)
[2020-05-15 18:52] VITALS: BP 103/72
[2020-05-15] MEDS: hydrOXyzine 10MG TABLET PO SCH (21:10)
[2020-05-16 00:36] VITALS: BP 105/66
[2020-05-16] MEDS: LORazepam INTENSOL 2 MG/ML PO SCH ×4 (00:38→21:22)
[2020-05-16] MEDS: HYDROmorphone 1 MG/ML, 1ML INJ IV PRN ×5 (03:36→20:42)
[2020-05-16] MEDS: DIPHENHYDRAMINE 12.5MG/5ML, 10ML UDC PO SCH ×4 (04:00→23:25)
[2020-05-16] MEDS: DIPHENHYDRAMINE 50 MG/ML, 1ML IVPush PRN ×4 (04:12→23:25)
[2020-05-16] MEDS: NYSTATIN 500,000 UNITS/5 ML UDC PO SCH ×4 (05:22→21:22)
[2020-05-16 05:50] LABS: ANION GAP 8 mmol/L (5-15); CALCIUM 9.4 mg/dL (8.5-10.1); CHLORIDE 102 mmol/L (98-107); CREATININE 0.93 mg/dL (0.55-1.02)
[2020-05-16 07:40] VITALS: BP 99/73
[2020-05-16] MEDS: INSULIN REGULAR MEDIUM DOSE QDAY SQ-INSULIN SCH (07:49)
[2020-05-16] MEDS: OPIUM TINCTURE 1% 10 MG/ML ORAL.SOL PO SCH ×3 (07:59→21:22)
[2020-05-16 12:27] LABS: BASOPHILS % (AUTO) 1 % (0-1); EOSINOPHILS % (AUTO) 4 % (1-7); LYMPHOCYTES % (AUTO) 16 % (22-44); MD NO; MEAN CORPUSCULAR HEMOGLOBIN 30.7 pg (27.0-34.8); MEAN CORPUSCULAR HGB CONC 34.7 g/dL (32.4-35.8); MONOCYTES % (AUTO) 13 % (2-9); NEUTROPHILS % (AUTO) 67 % (42-75); PLATELET COUNT 242 x10^3/uL (130-400); RED BLOOD COUNT 3.53 x10^6/uL (3.82-5.3); RED CELL DISTRIBUTION WIDTH 14.5 % (9.6-15.2)
[2020-05-16 12:43] VITALS: BP 109/77
[2020-05-16] MEDS: FENTANYL 25 MCG PATCH TD SCH (15:18)
[2020-05-16] MEDS ORDERED: [UNRECOGNIZED DRUG - OTHER] IV SCH (16:00)
[2020-05-16] MEDS ORDERED: AMINO ACID 10% IV SCH (16:00)
[2020-05-16] MEDS ORDERED: SMOF TPN IV SCH (16:00)
[2020-05-16] MEDS ORDERED: FAT EMUL IV SCH (16:00)
[2020-05-16] MEDS ORDERED: DEXTROSE 70% IV SCH (16:00)
[2020-05-16] MEDS: FILTER, DISP 1.2 MICRON FOR TPN/PVN IV SCH (16:40)
[2020-05-16] MEDS: SCOPOLAMINE PATCH, 1.5MG PATCH.TD72 TD SCH (16:42)
[2020-05-16] MEDS: CALCITRIOL 1 MCG/ML SOL PO SCH (16:48)
[2020-05-16 18:45] VITALS: BP 113/82
[2020-05-16] MEDS: hydrOXyzine 10MG TABLET PO SCH (21:22)
[2020-05-17] MEDS: HYDROmorphone 1 MG/ML, 1ML INJ IV PRN ×6 (00:49→22:10)
[2020-05-17 00:52] VITALS: BP 105/55
[2020-05-17] MEDS: LORazepam INTENSOL 2 MG/ML PO SCH ×4 (02:24→20:51)
[2020-05-17] MEDS: DIPHENHYDRAMINE 12.5MG/5ML, 10ML UDC PO SCH ×4 (04:59→23:54)
[2020-05-17] MEDS: NYSTATIN 500,000 UNITS/5 ML UDC PO SCH ×4 (06:03→20:51)
[2020-05-17] MEDS: DIPHENHYDRAMINE 50 MG/ML, 1ML IVPush PRN ×4 (06:03→23:58)
[2020-05-17 06:18] VITALS: BP 104/71
[2020-05-17] MEDS: INSULIN REGULAR MEDIUM DOSE QDAY SQ-INSULIN SCH (08:20)
[2020-05-17] MEDS: OPIUM TINCTURE 1% 10 MG/ML ORAL.SOL PO SCH ×3 (09:21→20:51)
[2020-05-17 13:11] VITALS: BP 112/82
[2020-05-17] MEDS ORDERED: [UNRECOGNIZED DRUG - OTHER] IV SCH (17:00)
[2020-05-17] MEDS ORDERED: SMOF TPN IV SCH (17:00)
[2020-05-17] MEDS ORDERED: DEXTROSE 70% IV SCH (17:00)
[2020-05-17] MEDS ORDERED: FAT EMUL IV SCH (17:00)
[2020-05-17] MEDS ORDERED: AMINO ACID 10% IV SCH (17:00)
[2020-05-17] MEDS: FILTER, DISP 1.2 MICRON FOR TPN/PVN IV SCH (17:42)
[2020-05-17] MEDS: CALCITRIOL 1 MCG/ML SOL PO SCH (17:45)
[2020-05-17 18:46] VITALS: BP 115/84
[2020-05-17] MEDS: hydrOXyzine 10MG TABLET PO SCH (20:51)
[2020-05-18 01:30] VITALS: BP 97/63
[2020-05-18] MEDS: LORazepam INTENSOL 2 MG/ML PO SCH ×4 (03:15→21:25)
[2020-05-18] MEDS: HYDROmorphone 1 MG/ML, 1ML INJ IV PRN ×5 (03:22→21:25)
[2020-05-18] MEDS: DIPHENHYDRAMINE 12.5MG/5ML, 10ML UDC PO SCH ×3 (05:48→18:00)
[2020-05-18] MEDS: DIPHENHYDRAMINE 50 MG/ML, 1ML IVPush PRN ×3 (06:22→17:55)
[2020-05-18] MEDS: NYSTATIN 500,000 UNITS/5 ML UDC PO SCH ×4 (06:22→21:03)
[2020-05-18 06:28] LABS: BASOPHILS % (AUTO) 1 % (0-1); EOSINOPHILS % (AUTO) 7 % (1-7); LYMPHOCYTES % (AUTO) 17 % (22-44); MD NO; MEAN CORPUSCULAR HEMOGLOBIN 30.5 pg (27.0-34.8); MEAN CORPUSCULAR HGB CONC 34.4 g/dL (32.4-35.8); MEAN PLATELET VOLUME 9.4 fL (7.4-10.4); MONOCYTES % (AUTO) 13 % (2-9); NEUTROPHILS % (AUTO) 63 % (42-75); PLATELET COUNT 272 x10^3/uL (130-400); RED BLOOD COUNT 3.29 x10^6/uL (3.82-5.3); RED CELL DISTRIBUTION WIDTH 14.3 % (9.6-15.2)
[2020-05-18 06:40] LABS: ALANINE AMINOTRANSFERASE 28 U/L (12-78); ALBUMIN 2.2 g/dL (3.4-5.0); ANION GAP 8 mmol/L (5-15); CALCIUM 9.2 mg/dL (8.5-10.1); CHLORIDE 102 mmol/L (98-107); CREATININE 0.92 mg/dL (0.55-1.02)
[2020-05-18 06:45] LABS: ALKALINE PHOSPHATASE 182 U/L (45-117); BILIRUBIN,TOTAL 0.2 mg/dL (0.2-1.0); PREALBUMIN 19.7 mg/dL (20.0-40.0); TOTAL PROTEIN 7.8 g/dL (6.4-8.2)
[2020-05-18 08:02] VITALS: BP 108/71
[2020-05-18] MEDS: INSULIN REGULAR MEDIUM DOSE QDAY SQ-INSULIN SCH (09:00)
[2020-05-18] MEDS: OPIUM TINCTURE 1% 10 MG/ML ORAL.SOL PO SCH ×3 (09:34→21:03)
[2020-05-18 13:46] VITALS: BP 102/71
[2020-05-18] MEDS ORDERED: DEXTROSE 70% IV SCH ×2 (13:52→17:00)
[2020-05-18] MEDS ORDERED: [UNRECOGNIZED DRUG - OTHER] IV SCH ×2 (13:52→17:00)
[2020-05-18] MEDS ORDERED: SMOF TPN IV SCH ×2 (13:52→17:00)
[2020-05-18] MEDS ORDERED: FAT EMUL IV SCH ×2 (13:52→17:00)
[2020-05-18] MEDS ORDERED: AMINO ACID 10% IV SCH ×2 (13:52→17:00)
[2020-05-18] MEDS: FILTER, DISP 1.2 MICRON FOR TPN/PVN IV SCH (17:06)
[2020-05-18] MEDS: CALCITRIOL 1 MCG/ML SOL PO SCH (18:12)
[2020-05-18 19:01] VITALS: BP 121/81
[2020-05-18] MEDS: hydrOXyzine 10MG TABLET PO SCH (21:03)
[2020-05-19] MEDS: DIPHENHYDRAMINE 50 MG/ML, 1ML IVPush PRN ×4 (00:04→18:05)
[2020-05-19 00:26] VITALS: BP 115/76
[2020-05-19] MEDS: HYDROmorphone 1 MG/ML, 1ML INJ IV PRN ×6 (01:15→22:34)
[2020-05-19] MEDS: LORazepam INTENSOL 2 MG/ML PO SCH ×4 (03:00→20:10)
[2020-05-19] MEDS: DIPHENHYDRAMINE 12.5MG/5ML, 10ML UDC PO SCH ×4 (05:40→18:00)
[2020-05-19] MEDS: NYSTATIN 500,000 UNITS/5 ML UDC PO SCH ×4 (06:03→20:10)
[2020-05-19] MEDS ORDERED: CATHFLO-ALTEPLASE 2 MG/2 ML CATHFLUSH ONE ×2 (06:30→07:00)
[2020-05-19 06:48] LABS: ANION GAP 10 mmol/L (5-15); CALCIUM 9.2 mg/dL (8.5-10.1); CHLORIDE 102 mmol/L (98-107); CREATININE 0.95 mg/dL (0.55-1.02)
[2020-05-19] MEDS: INSULIN REGULAR MEDIUM DOSE QDAY SQ-INSULIN SCH (07:37)
[2020-05-19 08:09] VITALS: BP 104/66
[2020-05-19] MEDS: OPIUM TINCTURE 1% 10 MG/ML ORAL.SOL PO SCH ×3 (09:06→20:10)
[2020-05-19 13:10] VITALS: BP 111/78
[2020-05-19] MEDS: FENTANYL REMOVE PATCH NOTE XX SCH (15:00)
[2020-05-19] MEDS: FENTANYL 25 MCG PATCH TD SCH (15:16)
[2020-05-19] MEDS: SCOPOLAMINE PATCH, 1.5MG PATCH.TD72 TD SCH (16:31)
[2020-05-19] MEDS: FILTER, DISP 1.2 MICRON FOR TPN/PVN IV SCH (16:34)
[2020-05-19] MEDS ORDERED: AMINO ACID 10% IV SCH (17:00)
[2020-05-19] MEDS ORDERED: SMOF TPN IV SCH (17:00)
[2020-05-19] MEDS ORDERED: [UNRECOGNIZED DRUG - OTHER] IV SCH (17:00)
[2020-05-19] MEDS ORDERED: FAT EMUL IV SCH (17:00)
[2020-05-19] MEDS ORDERED: DEXTROSE 70% IV SCH (17:00)
[2020-05-19] MEDS: CALCITRIOL 1 MCG/ML SOL PO SCH (18:06)
[2020-05-19 18:50] VITALS: BP 112/76
[2020-05-19] MEDS: FENTANYL 50 MCG PATCH TD SCH (20:11)
[2020-05-19] MEDS: hydrOXyzine 10MG TABLET PO SCH (20:11)
[2020-05-20] MEDS: DIPHENHYDRAMINE 50 MG/ML, 1ML IVPush PRN ×4 (00:34→18:03)
[2020-05-20 00:39] VITALS: BP 108/71
[2020-05-20] MEDS: HYDROmorphone 1 MG/ML, 1ML INJ IV PRN ×5 (03:16→20:50)
[2020-05-20] MEDS: LORazepam INTENSOL 2 MG/ML PO SCH ×4 (03:35→21:15)
[2020-05-20 05:26] LABS: ANION GAP 7 mmol/L (5-15); CALCIUM 9.1 mg/dL (8.5-10.1); CHLORIDE 101 mmol/L (98-107); CREATININE 1.01 mg/dL (0.55-1.02)
[2020-05-20] MEDS: DIPHENHYDRAMINE 12.5MG/5ML, 10ML UDC PO SCH ×4 (05:30→18:00)
[2020-05-20] MEDS: NYSTATIN 500,000 UNITS/5 ML UDC PO SCH ×4 (06:17→20:49)
[2020-05-20 07:06] VITALS: BP 103/70
[2020-05-20] MEDS: INSULIN REGULAR MEDIUM DOSE QDAY SQ-INSULIN SCH (07:18)
[2020-05-20] MEDS: OPIUM TINCTURE 1% 10 MG/ML ORAL.SOL PO SCH ×3 (09:38→20:50)
[2020-05-20 12:32] VITALS: BP 113/80
[2020-05-20] MEDS: FILTER, DISP 1.2 MICRON FOR TPN/PVN IV SCH (16:40)
[2020-05-20] MEDS ORDERED: FAT EMUL IV SCH (17:00)
[2020-05-20] MEDS ORDERED: AMINO ACID 10% IV SCH (17:00)
[2020-05-20] MEDS ORDERED: DEXTROSE 70% IV SCH (17:00)
[2020-05-20] MEDS ORDERED: [UNRECOGNIZED DRUG - OTHER] IV SCH (17:00)
[2020-05-20] MEDS ORDERED: SMOF TPN IV SCH (17:00)
[2020-05-20] MEDS: CALCITRIOL 1 MCG/ML SOL PO SCH (18:03)
[2020-05-20 18:27] VITALS: BP 110/72
[2020-05-20] MEDS: hydrOXyzine 10MG TABLET PO SCH (20:50)
[2020-05-21 00:04] VITALS: BP 107/70
[2020-05-21] MEDS: DIPHENHYDRAMINE 50 MG/ML, 1ML IVPush PRN ×4 (00:14→18:04)
[2020-05-21] MEDS: DIPHENHYDRAMINE 12.5MG/5ML, 10ML UDC PO SCH ×4 (00:14→18:20)
[2020-05-21] MEDS: HYDROmorphone 1 MG/ML, 1ML INJ IV PRN ×3 (01:43→08:47)
[2020-05-21] MEDS: LORazepam INTENSOL 2 MG/ML PO SCH ×4 (03:54→21:49)
[2020-05-21 05:36] LABS: CHLORIDE 100 mmol/L (98-107)
[2020-05-21 05:42] LABS: BASOPHILS % (AUTO) 1 % (0-1); EOSINOPHILS % (AUTO) 6 % (1-7); LYMPHOCYTES % (AUTO) 14 % (22-44); MEAN CORPUSCULAR HEMOGLOBIN 30.7 pg (27.0-34.8); MEAN CORPUSCULAR HGB CONC 34.3 g/dL (32.4-35.8); MEAN PLATELET VOLUME 9.3 fL (7.4-10.4); MONOCYTES % (AUTO) 13 % (2-9); NEUTROPHILS % (AUTO) 67 % (42-75); PLATELET COUNT 314 x10^3/uL (130-400); RED BLOOD COUNT 3.23 x10^6/uL (3.82-5.3); RED CELL DISTRIBUTION WIDTH 14.2 % (9.6-15.2)
[2020-05-21 05:44] LABS: MD NO
[2020-05-21 05:53] LABS: ANION GAP 9 mmol/L (5-15); CALCIUM 9.5 mg/dL (8.5-10.1); CREATININE 0.88 mg/dL (0.55-1.02)
[2020-05-21 05:54] LABS: ALANINE AMINOTRANSFERASE 34 U/L (12-78); ALBUMIN 2.2 g/dL (3.4-5.0); ALKALINE PHOSPHATASE 164 U/L (45-117); BILIRUBIN,TOTAL 0.2 mg/dL (0.2-1.0); TOTAL PROTEIN 7.8 g/dL (6.4-8.2)
[2020-05-21] MEDS: NYSTATIN 500,000 UNITS/5 ML UDC PO SCH ×4 (06:18→21:49)
[2020-05-21 07:18] VITALS: BP 105/76
[2020-05-21] MEDS: INSULIN REGULAR MEDIUM DOSE QDAY SQ-INSULIN SCH (09:00)
[2020-05-21] MEDS ORDERED: CYSTO CONRAY II 250 ML VIAL UR ONE (09:12)
[2020-05-21] MEDS: OPIUM TINCTURE 1% 10 MG/ML ORAL.SOL PO SCH ×3 (10:56→21:49)
[2020-05-21 12:12] VITALS: BP 100/70
[2020-05-21] MEDS: morphine SULFATE ORAL.CONC 20 MG/ML PO PRN ×2 (14:06→19:49)
[2020-05-21] MEDS ORDERED: FAT EMUL IV SCH (17:00)
[2020-05-21] MEDS: FILTER, DISP 1.2 MICRON FOR TPN/PVN IV SCH (17:00)
[2020-05-21] MEDS ORDERED: DEXTROSE 70% IV SCH (17:00)
[2020-05-21] MEDS ORDERED: AMINO ACID 10% IV SCH (17:00)
[2020-05-21] MEDS ORDERED: [UNRECOGNIZED DRUG - OTHER] IV SCH (17:00)
[2020-05-21] MEDS ORDERED: SMOF TPN IV SCH (17:00)
[2020-05-21] MEDS: CALCITRIOL 1 MCG/ML SOL PO SCH (17:03)
[2020-05-21 19:12] VITALS: BP 112/79
[2020-05-21] MEDS: hydrOXyzine 10MG TABLET PO SCH (21:49)
[2020-05-22] MEDS: DIPHENHYDRAMINE 50 MG/ML, 1ML IVPush PRN ×4 (00:01→18:20)
[2020-05-22] MEDS: DIPHENHYDRAMINE 12.5MG/5ML, 10ML UDC PO SCH ×4 (00:13→18:22)
[2020-05-22 00:30] VITALS: BP 106/71
[2020-05-22] MEDS: LORazepam INTENSOL 2 MG/ML PO SCH ×3 (04:00→15:00)
[2020-05-22] MEDS: morphine SULFATE ORAL.CONC 20 MG/ML PO PRN ×2 (04:00→08:40)
[2020-05-22 06:05] LABS: CHLORIDE 102 mmol/L (98-107)
[2020-05-22] MEDS: NYSTATIN 500,000 UNITS/5 ML UDC PO SCH ×4 (06:06→20:38)
[2020-05-22 06:10] LABS: ANION GAP 6 mmol/L (5-15); CALCIUM 9.7 mg/dL (8.5-10.1); CREATININE 1.06 mg/dL (0.55-1.02)
[2020-05-22 07:50] VITALS: BP 100/67
[2020-05-22] MEDS: INSULIN REGULAR MEDIUM DOSE QDAY SQ-INSULIN SCH (07:57)
[2020-05-22] MEDS: OPIUM TINCTURE 1% 10 MG/ML ORAL.SOL PO SCH ×4 (08:40→20:39)
[2020-05-22 09:22] LABS: INTERNATIONAL NORMALIZED RATIO 1.12 (0.93-1.1)
[2020-05-22] MEDS ORDERED: LIDOCAINE 1%, 20ML ONE (10:25)
[2020-05-22] MEDS ORDERED: FENTANYL PF 100 MCG/2ML ONE (10:36)
[2020-05-22] MEDS ORDERED: MIDAZOLAM 1 MG/ML, 5ML ONE (10:36)
[2020-05-22] MEDS ORDERED: FLUMAZENIL 0.1 MG/1 ML, 5ML ONE (10:37)
[2020-05-22] MEDS ORDERED: NALOXONE 1 MG/ML, 2ML ONE (10:37)
[2020-05-22] MEDS: HYDROmorphone 1 MG/ML, 1ML INJ IV PRN ×2 (11:57→20:57)
[2020-05-22 12:31] VITALS: BP 107/76
[2020-05-22 13:04] VITALS: BP 91/62
[2020-05-22 13:05] VITALS: BP 80/57
[2020-05-22] MEDS: ACETAMINOPHEN 325 MG TABLET PO PRN ×2 (13:10→17:05)
[2020-05-22 13:17] VITALS: BP 70/45
[2020-05-22] MEDS ORDERED: DILTIAZEM 125 MG in SODIUM CHLORIDE 0.9% 100 ML IV PRN (14:30)
[2020-05-22 14:54] LABS: MICROSCOPIC INDICATED
[2020-05-22 15:00] LABS: MICROSCOPIC INDICATED
[2020-05-22] MEDS ORDERED: HYDROmorphone 2 MG/ML, 1ML IVPush ONE (15:00)
[2020-05-22] MEDS: ONDANSETRON 2MG/ML, 2ML IVPush PRN (16:41)
[2020-05-22] MEDS: PIPERACILLIN/TAZO/PMX 3.375GM 50 ML IV SCH ×2 (16:45→20:38)
[2020-05-22] MEDS ORDERED: SMOF TPN IV SCH (17:00)
[2020-05-22] MEDS ORDERED: AMINO ACID 10% IV SCH (17:00)
[2020-05-22] MEDS ORDERED: FAT EMUL IV SCH (17:00)
[2020-05-22] MEDS ORDERED: PROPOFOL 10 MG/ML, 20ML ONE (17:00)
[2020-05-22] MEDS ORDERED: [UNRECOGNIZED DRUG - OTHER] IV SCH (17:00)
[2020-05-22] MEDS ORDERED: DEXTROSE 70% IV SCH (17:00)
[2020-05-22] MEDS: LORazepam 2 MG/ML, 1ML IVPush SCH ×2 (17:05→23:18)
[2020-05-22] MEDS: ASPIRIN 325 MG TABLET PO SCH (17:05)
[2020-05-22] MEDS: FILTER, DISP 1.2 MICRON FOR TPN/PVN IV SCH (17:07)
[2020-05-22] MEDS: FENTANYL REMOVE PATCH NOTE XX SCH (17:09)
[2020-05-22 17:29] LABS: MEAN CORPUSCULAR HEMOGLOBIN 30.7 pg (27.0-34.8); MEAN CORPUSCULAR HGB CONC 34.1 g/dL (32.4-35.8); PLATELET COUNT 225 x10^3/uL (130-400); RED BLOOD COUNT 3.14 x10^6/uL (3.82-5.3)
[2020-05-22 17:43] LABS: MD YES
[2020-05-22 18:01] LABS: BAND#(MANUAL) 1.69 x10^3/uL; BANDS%(MANUAL) 18 % (0-7); SEG#(MANUAL) 7.71 x10^3/uL (1.8-6.8); SEGS% (MANUAL) 82 % (42-75)
[2020-05-22 18:02] LABS: ANISOCYTOSIS 1+
[2020-05-22 18:03] LABS: POLYCHROMASIA 1+
[2020-05-22 18:04] LABS: <PLATELET ESTIMATE> ADEQUATE; <PLT MORPHOLOGY> NORMAL PLT MORPH; PMNS WITH VACUOLES 1+
[2020-05-22] MEDS: CALCITRIOL 1 MCG/ML SOL PO SCH (18:20)
[2020-05-22] MEDS: SODIUM CHLORIDE 0.9% 1,000 ML IV SCH ×2 (18:21→23:21)
[2020-05-22] MEDS: SCOPOLAMINE PATCH, 1.5MG PATCH.TD72 TD SCH (18:21)
[2020-05-22] MEDS ORDERED: ADENOSINE 6 MG/2 ML ONE ×2 (18:22→22:50)
[2020-05-22] MEDS: hydrOXyzine 10MG TABLET PO SCH (20:38)
[2020-05-22] MEDS: FENTANYL 50 MCG PATCH TD SCH (20:39)
[2020-05-22] MEDS ORDERED: NOREPINEPHRINE 8 MG in SODIUM CHLORIDE 0.9% 242 ML IV PRN (23:00)
[2020-05-23] MEDS: DIPHENHYDRAMINE 12.5MG/5ML, 10ML UDC PO SCH ×6 (01:00→21:14)
[2020-05-23] MEDS: PIPERACILLIN/TAZO/PMX 3.375GM 50 ML IV SCH ×4 (01:58→21:14)
[2020-05-23] MEDS: DIPHENHYDRAMINE 50 MG/ML, 1ML IVPush PRN ×4 (02:04→21:33)
[2020-05-23 03:39] LABS: MEAN CORPUSCULAR HEMOGLOBIN 30.3 pg (27.0-34.8); MEAN CORPUSCULAR HGB CONC 32.6 g/dL (32.4-35.8); MEAN PLATELET VOLUME 9.5 fL (7.4-10.4); PLATELET COUNT 272 x10^3/uL (130-400); RED BLOOD COUNT 3.09 x10^6/uL (3.82-5.3); RED CELL DISTRIBUTION WIDTH 15.2 % (9.6-15.2)
[2020-05-23 04:33] LABS: ALANINE AMINOTRANSFERASE 51 U/L (12-78); ALBUMIN 1.6 g/dL (3.4-5.0); ANION GAP 14 mmol/L (5-15); CALCIUM 7.8 mg/dL (8.5-10.1); CHLORIDE 116 mmol/L (98-107)
[2020-05-23 04:36] LABS: ALKALINE PHOSPHATASE 489 U/L (45-117); BILIRUBIN,TOTAL 0.4 mg/dL (0.2-1.0); TOTAL PROTEIN 6.4 g/dL (6.4-8.2)
[2020-05-23] MEDS: LORazepam 2 MG/ML, 1ML IVPush SCH ×4 (05:23→23:10)
[2020-05-23] MEDS: ASPIRIN 325 MG TABLET PO SCH (05:23)
[2020-05-23] MEDS: NYSTATIN 500,000 UNITS/5 ML UDC PO SCH ×4 (05:23→21:16)
[2020-05-23 05:34] LABS: MD YES
[2020-05-23] MEDS: HYDROmorphone 1 MG/ML, 1ML INJ IV PRN ×4 (05:37→23:11)
[2020-05-23 05:43] LABS: ANISOCYTOSIS 1+; BAND#(MANUAL) 9.15 x10^3/uL; BANDS%(MANUAL) 25 % (0-7); LYMPH#(MANUAL) 0.37 x10^3/uL (1-3.4); LYMPHS% (MANUAL) 1 % (22-44); METAMYELOCYTES# (MANUAL) 5.12 x10^3/uL (0-0); METAMYELOCYTES% (MANUAL) 14 % (0-1); MONOS#(MANUAL) 0.37 x10^3/uL (0.3-2.7); MONOS% (MANUAL) 1 % (2-9); MYELOCYTES# (MANUAL) 1.83 x10^3/uL (0-0); MYELOCYTES% (MANUAL) 5 % (0-0); SEG#(MANUAL) 19.76 x10^3/uL (1.8-6.8); SEGS% (MANUAL) 54 % (42-75)
[2020-05-23 05:44] LABS: <PLATELET ESTIMATE> ADEQUATE; LARGE PLATELETS 1+; PMNS WITH VACUOLES 1+; POLYCHROMASIA 1+
[2020-05-23 05:45] LABS: TOXIC GRAN 2+
[2020-05-23] MEDS ORDERED: MAGNESIUM SULFATE PMX 2GM/50ML 50 ML IVPB ONE (08:30)
[2020-05-23] MEDS ORDERED: POTASSIUM PHOSPHATE 22 MEQ in SODIUM CHLORIDE 0.9% 250 ML IV ONE (08:30)
[2020-05-23] MEDS: ONDANSETRON 2MG/ML, 2ML IVPush PRN (08:50)
[2020-05-23] MEDS: OPIUM TINCTURE 1% 10 MG/ML ORAL.SOL PO SCH ×3 (09:33→21:16)
[2020-05-23] MEDS: SODIUM CHLORIDE 0.9% 1,000 ML IV SCH ×2 (09:38→16:39)
[2020-05-23] MEDS: INSULIN LISPRO 100 UNITS/ML, PEN 3ML SS HIGH DOSE SQ-INSULIN SCH ×3 (09:41→23:00)
[2020-05-23 10:55] LABS: CLOSTRIDIUM DIFFICILE ANTIGEN NEGATIVE; CLOSTRIDIUM DIFFICILE TOXIN NEGATIVE (Negative)
[2020-05-23] MEDS: PROCHLORPERAZINE 5 MG/ML, 2ML IVPush PRN (11:12)
[2020-05-23] MEDS ORDERED: PVN PER PHARMACY IV SCH (17:00)
[2020-05-23] MEDS ORDERED: AMINO ACID 10% 750 ML, DEXTROSE 70% 350 ML, FAT EMUL/SMOF TPN 200 ML, STERILE WATER 1,0... IV SCH (17:00)
[2020-05-23] MEDS: LACTATED RINGERS 1,000 ML IV SCH (18:05)
[2020-05-23] MEDS: FILTER, DISP 1.2 MICRON FOR TPN/PVN IV SCH (18:05)
[2020-05-23] MEDS: CALCITRIOL 1 MCG/ML SOL PO SCH (18:23)
[2020-05-23] MEDS ORDERED: DEXTROSE 4 GM TAB.CHEW PO PRN (18:30)
[2020-05-23] MEDS ORDERED: GLUCAGON 1 MG IM PRN (18:30)
[2020-05-23] MEDS ORDERED: DEXTROSE 50%, 50ML SYRINGE IVPush PRN (18:30)
[2020-05-23] MEDS ORDERED: LACTATED RINGERS 500 ML IVBOLUS ONE (20:30)
[2020-05-23] MEDS: SODIUM CHLORIDE FLUSH 10ML SYR IVF SCH (20:58)
[2020-05-23] MEDS: ACETAMINOPHEN 325 MG TABLET PO PRN (21:15)
[2020-05-23] MEDS: CYCLOBENZAPRINE 10 MG TABLET PO PRN (21:15)
[2020-05-23] MEDS: hydrOXyzine 10MG TABLET PO SCH (21:15)
[2020-05-24] MEDS: DIPHENHYDRAMINE 12.5MG/5ML, 10ML UDC PO SCH ×4 (02:00→20:00)
[2020-05-24] MEDS: PIPERACILLIN/TAZO/PMX 3.375GM 50 ML IV SCH ×4 (03:10→23:34)
[2020-05-24] MEDS: LORazepam 2 MG/ML, 1ML IVPush SCH ×4 (04:14→23:34)
[2020-05-24] MEDS: DIPHENHYDRAMINE 50 MG/ML, 1ML IVPush PRN ×4 (04:14→20:42)
[2020-05-24] MEDS: HYDROmorphone 1 MG/ML, 1ML INJ IV PRN ×2 (04:14→20:46)
[2020-05-24 04:55] LABS: ALANINE AMINOTRANSFERASE 30 U/L (12-78); ALBUMIN 1.4 g/dL (3.4-5.0); ANION GAP 7 mmol/L (5-15); CHLORIDE 110 mmol/L (98-107); CREATININE 1.04 mg/dL (0.55-1.02); TRIGLYCERIDES 367 mg/dL (50-200)
[2020-05-24] MEDS: INSULIN LISPRO 100 UNITS/ML, PEN 3ML SS HIGH DOSE SQ-INSULIN SCH ×4 (05:00→23:00)
[2020-05-24 05:04] LABS: ALKALINE PHOSPHATASE 276 U/L (45-117); BILIRUBIN,TOTAL 0.2 mg/dL (0.2-1.0); PREALBUMIN 12.6 mg/dL (20.0-40.0); TOTAL PROTEIN 5.7 g/dL (6.4-8.2)
[2020-05-24 05:20] LABS: MEAN CORPUSCULAR HEMOGLOBIN 30.5 pg (27.0-34.8); MEAN CORPUSCULAR HGB CONC 33.9 g/dL (32.4-35.8); MEAN PLATELET VOLUME 9.8 fL (7.4-10.4); PLATELET COUNT 163 x10^3/uL (130-400); RED BLOOD COUNT 2.46 x10^6/uL (3.82-5.3); RED CELL DISTRIBUTION WIDTH 15.5 % (9.6-15.2)
[2020-05-24] MEDS: NYSTATIN 500,000 UNITS/5 ML UDC PO SCH ×4 (06:00→20:42)
[2020-05-24 06:51] LABS: MD YES
[2020-05-24 06:53] LABS: BAND#(MANUAL) 4.75 x10^3/uL; BANDS%(MANUAL) 25 % (0-7); BASOS#(MANUAL) 0.19 x10^3/uL (0-0.1); BASOS% (MANUAL) 1 % (0-1); LYMPH#(MANUAL) 0.76 x10^3/uL (1-3.4); LYMPHS% (MANUAL) 4 % (22-44); MONOS#(MANUAL) 0.19 x10^3/uL (0.3-2.7); MONOS% (MANUAL) 1 % (2-9); SEG#(MANUAL) 13.11 x10^3/uL (1.8-6.8); SEGS% (MANUAL) 69 % (42-75)
[2020-05-24 06:54] LABS: <PLATELET ESTIMATE> ADEQUATE; <PLT MORPHOLOGY> NORMAL PLT MORPH; ANISOCYTOSIS 1+; TOXIC GRAN 1+
[2020-05-24] MEDS: SODIUM CHLORIDE FLUSH 10ML SYR IVF SCH ×2 (09:08→20:42)
[2020-05-24] MEDS: OPIUM TINCTURE 1% 10 MG/ML ORAL.SOL PO SCH ×3 (09:24→20:43)
[2020-05-24] MEDS: ASPIRIN 325 MG TABLET PO SCH (09:24)
[2020-05-24 09:43] VITALS: BP 95/44
[2020-05-24 10:01] VITALS: BP 88/50
[2020-05-24 10:16] VITALS: BP 84/52
[2020-05-24 11:16] VITALS: BP 86/53
[2020-05-24] MEDS ORDERED: LACTATED RINGERS 500 ML IVBOLUS ONE (11:30)
[2020-05-24 12:46] VITALS: BP 108/74
[2020-05-24 13:51] VITALS: BP 102/78
[2020-05-24] MEDS: ONDANSETRON 2MG/ML, 2ML IVPush PRN (16:32)
[2020-05-24] MEDS ORDERED: DEXTROSE 70% IV SCH (17:00)
[2020-05-24] MEDS ORDERED: FAT EMUL IV SCH (17:00)
[2020-05-24] MEDS ORDERED: AMINO ACID 10% IV SCH (17:00)
[2020-05-24] MEDS ORDERED: SMOF TPN IV SCH (17:00)
[2020-05-24] MEDS ORDERED: [UNRECOGNIZED DRUG - OTHER] IV SCH (17:00)
[2020-05-24] MEDS: CALCITRIOL 1 MCG/ML SOL PO SCH (17:31)
[2020-05-24] MEDS: FILTER, DISP 1.2 MICRON FOR TPN/PVN IV SCH (17:34)
[2020-05-24] MEDS: hydrOXyzine 10MG TABLET PO SCH (20:42)
[2020-05-24] MEDS: SIMETHICONE 80 MG CHEW TAB PO PRN (21:06)
[2020-05-25] MEDS: DIPHENHYDRAMINE 12.5MG/5ML, 10ML UDC PO SCH ×4 (02:00→19:48)
[2020-05-25] MEDS: DIPHENHYDRAMINE 50 MG/ML, 1ML IVPush PRN ×4 (02:06→21:24)
[2020-05-25 04:25] LABS: MEAN CORPUSCULAR HEMOGLOBIN 30.4 pg (27.0-34.8); MEAN CORPUSCULAR HGB CONC 34.3 g/dL (32.4-35.8); MEAN PLATELET VOLUME 10.4 fL (7.4-10.4); PLATELET COUNT 164 x10^3/uL (130-400); RED BLOOD COUNT 3.59 x10^6/uL (3.82-5.3); RED CELL DISTRIBUTION WIDTH 14.8 % (9.6-15.2)
[2020-05-25 04:36] LABS: ALANINE AMINOTRANSFERASE 29 U/L (12-78); ALBUMIN 1.7 g/dL (3.4-5.0); ANION GAP 5 mmol/L (5-15); CALCIUM 8.6 mg/dL (8.5-10.1); CHLORIDE 106 mmol/L (98-107)
[2020-05-25 04:38] LABS: ALKALINE PHOSPHATASE 292 U/L (45-117); BILIRUBIN,TOTAL 0.3 mg/dL (0.2-1.0); TOTAL PROTEIN 6.7 g/dL (6.4-8.2)
[2020-05-25 04:51] LABS: MD YES
[2020-05-25 04:53] LABS: ANISOCYTOSIS 1+; BAND#(MANUAL) 2.24 x10^3/uL; BANDS%(MANUAL) 11 % (0-7); EOS% (MANUAL) 1 % (1-7); LYMPH#(MANUAL) 0.41 x10^3/uL (1-3.4); LYMPHS% (MANUAL) 2 % (22-44); MONOS% (MANUAL) 1 % (2-9); PMNS WITH VACUOLES 1+; SEG#(MANUAL) 17.34 x10^3/uL (1.8-6.8); SEGS% (MANUAL) 85 % (42-75); TOXIC GRAN 2+
[2020-05-25 04:54] LABS: <PLATELET ESTIMATE> ADEQUATE; <PLT MORPHOLOGY> NORMAL PLT MORPH
[2020-05-25] MEDS: INSULIN LISPRO 100 UNITS/ML, PEN 3ML SS HIGH DOSE SQ-INSULIN SCH ×4 (05:00→23:00)
[2020-05-25] MEDS: ASPIRIN 325 MG TABLET PO SCH (05:10)
[2020-05-25] MEDS: LORazepam 2 MG/ML, 1ML IVPush SCH ×4 (05:10→23:19)
[2020-05-25] MEDS: PIPERACILLIN/TAZO/PMX 3.375GM 50 ML IV SCH ×4 (05:10→23:19)
[2020-05-25] MEDS: NYSTATIN 500,000 UNITS/5 ML UDC PO SCH ×4 (05:10→21:24)
[2020-05-25] MEDS: SIMETHICONE 80 MG CHEW TAB PO PRN (07:54)
[2020-05-25] MEDS: HYDROmorphone 1 MG/ML, 1ML INJ IV PRN ×4 (07:54→23:59)
[2020-05-25] MEDS: OPIUM TINCTURE 1% 10 MG/ML ORAL.SOL PO SCH ×3 (07:55→21:24)
[2020-05-25] MEDS: SODIUM CHLORIDE FLUSH 10ML SYR IVF SCH ×2 (07:55→21:00)
[2020-05-25] MEDS: LACTATED RINGERS 1,000 ML IV SCH ×2 (12:24→23:25)
[2020-05-25] MEDS: MICAFUNGIN 100 MG in SODIUM CHLORIDE 0.9% 100 ML IV SCH (12:24)
[2020-05-25 13:53] VITALS: BP 122/75
[2020-05-25] MEDS: SCOPOLAMINE PATCH, 1.5MG PATCH.TD72 TD SCH (16:09)
[2020-05-25] MEDS ORDERED: [UNRECOGNIZED DRUG - OTHER] IV SCH (17:00)
[2020-05-25] MEDS ORDERED: DEXTROSE 70% IV SCH (17:00)
[2020-05-25] MEDS ORDERED: SMOF TPN IV SCH (17:00)
[2020-05-25] MEDS ORDERED: FAT EMUL IV SCH (17:00)
[2020-05-25] MEDS ORDERED: AMINO ACID 10% IV SCH (17:00)
[2020-05-25 18:43] VITALS: BP 117/84
[2020-05-25] MEDS: CALCITRIOL 1 MCG/ML SOL PO SCH (20:16)
[2020-05-25] MEDS: FILTER, DISP 1.2 MICRON FOR TPN/PVN IV SCH (20:16)
[2020-05-25] MEDS: FENTANYL 50 MCG PATCH TD SCH (20:19)
[2020-05-25] MEDS: FENTANYL REMOVE PATCH NOTE XX SCH (20:19)
[2020-05-25] MEDS: hydrOXyzine 10MG TABLET PO SCH (21:24)
[2020-05-26 01:43] VITALS: BP 141/99
[2020-05-26] MEDS: DIPHENHYDRAMINE 12.5MG/5ML, 10ML UDC PO SCH ×4 (01:46→20:39)
[2020-05-26] MEDS: DIPHENHYDRAMINE 50 MG/ML, 1ML IVPush PRN ×4 (03:40→20:39)
[2020-05-26] MEDS: HYDROmorphone 1 MG/ML, 1ML INJ IV PRN ×5 (04:34→21:58)
[2020-05-26 04:59] LABS: MEAN CORPUSCULAR HEMOGLOBIN 30.7 pg (27.0-34.8); MEAN CORPUSCULAR HGB CONC 34.5 g/dL (32.4-35.8); MEAN PLATELET VOLUME 10.2 fL (7.4-10.4); PLATELET COUNT 182 x10^3/uL (130-400); RED BLOOD COUNT 3.82 x10^6/uL (3.82-5.3); RED CELL DISTRIBUTION WIDTH 14.7 % (9.6-15.2)
[2020-05-26 05:10] LABS: ALBUMIN 1.9 g/dL (3.4-5.0); CALCIUM 8.9 mg/dL (8.5-10.1); CHLORIDE 104 mmol/L (98-107)
[2020-05-26 05:14] LABS: ALANINE AMINOTRANSFERASE 32 U/L (12-78); ALKALINE PHOSPHATASE 364 U/L (45-117); ANION GAP 8 mmol/L (5-15); BILIRUBIN,TOTAL 0.3 mg/dL (0.2-1.0); CREATININE 0.83 mg/dL (0.55-1.02); TOTAL PROTEIN 7.4 g/dL (6.4-8.2)
[2020-05-26 05:29] LABS: MD YES
[2020-05-26 05:31] LABS: <RBC MORPHOLOGY> NORMAL; BAND#(MANUAL) 0.38 x10^3/uL; BANDS%(MANUAL) 3 % (0-7); BASOS#(MANUAL) 0.13 x10^3/uL (0-0.1); BASOS% (MANUAL) 1 % (0-1); EOS#(MANUAL) 0.25 x10^3/uL (0.0-0.4); EOS% (MANUAL) 2 % (1-7); LYMPH#(MANUAL) 0.38 x10^3/uL (1-3.4); LYMPHS% (MANUAL) 3 % (22-44); SEG#(MANUAL) 11.38 x10^3/uL (1.8-6.8); SEGS% (MANUAL) 91 % (42-75)
[2020-05-26 05:32] LABS: <PLATELET ESTIMATE> ADEQUATE; <PLT MORPHOLOGY> NORMAL PLT MORPH
[2020-05-26] MEDS: INSULIN LISPRO 100 UNITS/ML, PEN 3ML SS HIGH DOSE SQ-INSULIN SCH ×4 (05:33→23:00)
[2020-05-26] MEDS: PIPERACILLIN/TAZO/PMX 3.375GM 50 ML IV SCH ×4 (05:41→23:11)
[2020-05-26] MEDS: ASPIRIN 325 MG TABLET PO SCH (05:42)
[2020-05-26] MEDS: NYSTATIN 500,000 UNITS/5 ML UDC PO SCH ×4 (05:42→20:39)
[2020-05-26] MEDS: LORazepam 2 MG/ML, 1ML IVPush SCH ×4 (05:42→23:10)
[2020-05-26 07:28] VITALS: BP 129/92
[2020-05-26] MEDS: OPIUM TINCTURE 1% 10 MG/ML ORAL.SOL PO SCH ×3 (08:44→20:39)
[2020-05-26] MEDS: SODIUM CHLORIDE FLUSH 10ML SYR IVF SCH ×2 (08:44→20:39)
[2020-05-26] MEDS: MICAFUNGIN 100 MG in SODIUM CHLORIDE 0.9% 100 ML IV SCH (12:33)
[2020-05-26 13:09] VITALS: BP 130/90
[2020-05-26] MEDS: KETOROLAC 30 MG/1 ML IVPush PRN ×2 (16:57→23:10)
[2020-05-26] MEDS ORDERED: FAT EMUL IV SCH (17:00)
[2020-05-26] MEDS ORDERED: SMOF TPN IV SCH (17:00)
[2020-05-26] MEDS ORDERED: AMINO ACID 10% IV SCH (17:00)
[2020-05-26] MEDS ORDERED: DEXTROSE 70% IV SCH (17:00)
[2020-05-26] MEDS ORDERED: [UNRECOGNIZED DRUG - OTHER] IV SCH (17:00)
[2020-05-26] MEDS: FILTER, DISP 1.2 MICRON FOR TPN/PVN IV SCH (18:14)
[2020-05-26] MEDS: CALCITRIOL 1 MCG/ML SOL PO SCH (18:35)
[2020-05-26 19:33] VITALS: BP 122/82
[2020-05-26] MEDS: hydrOXyzine 10MG TABLET PO SCH (20:39)
[2020-05-26] MEDS: LACTATED RINGERS 1,000 ML IV SCH (23:10)
[2020-05-27] MEDS: DIPHENHYDRAMINE 12.5MG/5ML, 10ML UDC PO SCH ×4 (02:00→20:00)
[2020-05-27] MEDS: DIPHENHYDRAMINE 50 MG/ML, 1ML IVPush PRN ×4 (02:42→20:53)
[2020-05-27 04:11] VITALS: BP 122/83
[2020-05-27] MEDS: INSULIN LISPRO 100 UNITS/ML, PEN 3ML SS HIGH DOSE SQ-INSULIN SCH (05:00)
[2020-05-27] MEDS: LORazepam 2 MG/ML, 1ML IVPush SCH ×4 (05:29→23:10)
[2020-05-27] MEDS: NYSTATIN 500,000 UNITS/5 ML UDC PO SCH ×4 (05:29→20:53)
[2020-05-27] MEDS: ASPIRIN 325 MG TABLET PO SCH (05:29)
[2020-05-27] MEDS: PIPERACILLIN/TAZO/PMX 3.375GM 50 ML IV SCH ×5 (05:29→23:11)
[2020-05-27] MEDS: HYDROmorphone 1 MG/ML, 1ML INJ IV PRN ×6 (05:45→22:08)
[2020-05-27 05:51] LABS: MEAN CORPUSCULAR HEMOGLOBIN 30.5 pg (27.0-34.8); MEAN CORPUSCULAR HGB CONC 33.9 g/dL (32.4-35.8); MEAN PLATELET VOLUME 10.3 fL (7.4-10.4); PLATELET COUNT 191 x10^3/uL (130-400); RED BLOOD COUNT 3.88 x10^6/uL (3.82-5.3); RED CELL DISTRIBUTION WIDTH 14.4 % (9.6-15.2)
[2020-05-27 06:02] LABS: ANION GAP 8 mmol/L (5-15); CALCIUM 8.9 mg/dL (8.5-10.1); CHLORIDE 105 mmol/L (98-107)
[2020-05-27 06:03] LABS: CREATININE 0.91 mg/dL (0.55-1.02)
[2020-05-27 06:12] LABS: MD YES
[2020-05-27 06:14] LABS: BAND#(MANUAL) 0.19 x10^3/uL; BANDS%(MANUAL) 2 % (0-7); BASOS% (MANUAL) 1 % (0-1); EOS#(MANUAL) 0.29 x10^3/uL (0.0-0.4); EOS% (MANUAL) 3 % (1-7); LYMPH#(MANUAL) 0.57 x10^3/uL (1-3.4); LYMPHS% (MANUAL) 6 % (22-44); METAMYELOCYTES% (MANUAL) 1 % (0-1); MONOS#(MANUAL) 0.67 x10^3/uL (0.3-2.7); MONOS% (MANUAL) 7 % (2-9); MYELOCYTES% (MANUAL) 1 % (0-0); SEG#(MANUAL) 7.51 x10^3/uL (1.8-6.8); SEGS% (MANUAL) 79 % (42-75)
[2020-05-27 06:16] LABS: <PLATELET ESTIMATE> ADEQUATE; <PLT MORPHOLOGY> NORMAL PLT MORPH; <RBC MORPHOLOGY> NORMAL; TOXIC GRAN 1+
[2020-05-27 06:17] LABS: PMNS WITH VACUOLES 1+
[2020-05-27 07:45] VITALS: BP 123/78
[2020-05-27] MEDS: SODIUM CHLORIDE FLUSH 10ML SYR IVF SCH ×2 (09:00→20:54)
[2020-05-27] MEDS: OPIUM TINCTURE 1% 10 MG/ML ORAL.SOL PO SCH ×3 (09:04→20:54)
[2020-05-27] MEDS: KETOROLAC 30 MG/1 ML IVPush PRN ×2 (10:44→17:10)
[2020-05-27] MEDS: MICAFUNGIN 100 MG in SODIUM CHLORIDE 0.9% 100 ML IV SCH (12:02)
[2020-05-27 12:35] VITALS: BP 123/81
[2020-05-27] MEDS: FILTER, DISP 1.2 MICRON FOR TPN/PVN IV SCH (16:51)
[2020-05-27] MEDS ORDERED: DEXTROSE 70% IV SCH (17:00)
[2020-05-27] MEDS ORDERED: [UNRECOGNIZED DRUG - OTHER] IV SCH (17:00)
[2020-05-27] MEDS ORDERED: SMOF TPN IV SCH (17:00)
[2020-05-27] MEDS ORDERED: FAT EMUL IV SCH (17:00)
[2020-05-27] MEDS ORDERED: AMINO ACID 10% IV SCH (17:00)
[2020-05-27] MEDS: CALCITRIOL 1 MCG/ML SOL PO SCH (17:10)
[2020-05-27 19:05] VITALS: BP 134/91
[2020-05-27] MEDS: hydrOXyzine 10MG TABLET PO SCH (20:53)
[2020-05-27] MEDS: LACTATED RINGERS 1,000 ML IV SCH (23:11)
[2020-05-28 00:03] VITALS: BP 132/92
[2020-05-28] MEDS: DIPHENHYDRAMINE 12.5MG/5ML, 10ML UDC PO SCH ×4 (03:00→21:00)
[2020-05-28] MEDS: DIPHENHYDRAMINE 50 MG/ML, 1ML IVPush PRN ×4 (03:07→21:25)
[2020-05-28] MEDS: KETOROLAC 30 MG/1 ML IVPush PRN ×3 (03:07→17:04)
[2020-05-28] MEDS: ONDANSETRON 2MG/ML, 2ML IVPush PRN (04:22)
[2020-05-28] MEDS: LORazepam 2 MG/ML, 1ML IVPush SCH ×4 (04:23→23:17)
[2020-05-28] MEDS: NYSTATIN 500,000 UNITS/5 ML UDC PO SCH ×4 (05:30→21:25)
[2020-05-28] MEDS: ASPIRIN 325 MG TABLET PO SCH (05:30)
[2020-05-28] MEDS: PIPERACILLIN/TAZO/PMX 3.375GM 50 ML IV SCH ×3 (05:31→17:05)
[2020-05-28] MEDS: HYDROmorphone 1 MG/ML, 1ML INJ IV PRN ×5 (05:31→21:52)
[2020-05-28 06:10] LABS: MEAN CORPUSCULAR HEMOGLOBIN 30.6 pg (27.0-34.8); MEAN CORPUSCULAR HGB CONC 34.2 g/dL (32.4-35.8); MEAN PLATELET VOLUME 9.7 fL (7.4-10.4); PLATELET COUNT 208 x10^3/uL (130-400); RED BLOOD COUNT 3.78 x10^6/uL (3.82-5.3); RED CELL DISTRIBUTION WIDTH 14.1 % (9.6-15.2)
[2020-05-28 06:22] LABS: ALBUMIN 2.1 g/dL (3.4-5.0); ANION GAP 9 mmol/L (5-15); CHLORIDE 106 mmol/L (98-107)
[2020-05-28 06:25] LABS: ALANINE AMINOTRANSFERASE 49 U/L (12-78); ALKALINE PHOSPHATASE 345 U/L (45-117); BILIRUBIN,TOTAL 0.6 mg/dL (0.2-1.0); CREATININE 1.09 mg/dL (0.55-1.02); TOTAL PROTEIN 7.7 g/dL (6.4-8.2)
[2020-05-28 06:36] LABS: MD YES
[2020-05-28 06:38] LABS: BAND#(MANUAL) 0.18 x10^3/uL; BANDS%(MANUAL) 2 % (0-7); BASOS#(MANUAL) 0.09 x10^3/uL (0-0.1); BASOS% (MANUAL) 1 % (0-1); EOS#(MANUAL) 0.36 x10^3/uL (0.0-0.4); EOS% (MANUAL) 4 % (1-7); LYMPHS% (MANUAL) 10 % (22-44); METAMYELOCYTES# (MANUAL) 0.27 x10^3/uL (0-0); METAMYELOCYTES% (MANUAL) 3 % (0-1); MONOS#(MANUAL) 0.72 x10^3/uL (0.3-2.7); MONOS% (MANUAL) 8 % (2-9); MYELOCYTES# (MANUAL) 0.18 x10^3/uL (0-0); MYELOCYTES% (MANUAL) 2 % (0-0); SEGS% (MANUAL) 70 % (42-75)
[2020-05-28 06:39] LABS: <PLATELET ESTIMATE> ADEQUATE; <PLT MORPHOLOGY> NORMAL PLT MORPH; <RBC MORPHOLOGY> NORMAL; PMNS WITH VACUOLES 1+
[2020-05-28 08:16] VITALS: BP 131/90
[2020-05-28] MEDS: INSULIN LISPRO 100 UNITS/ML, PEN 3ML SS HIGH DOSE SQ-INSULIN SCH (09:00)
[2020-05-28] MEDS: SODIUM CHLORIDE FLUSH 10ML SYR IVF SCH ×2 (09:00→21:26)
[2020-05-28] MEDS: OPIUM TINCTURE 1% 10 MG/ML ORAL.SOL PO SCH ×3 (09:05→23:18)
[2020-05-28] MEDS: MICAFUNGIN 100 MG in SODIUM CHLORIDE 0.9% 100 ML IV SCH (12:48)
[2020-05-28 14:20] VITALS: BP 158/106
[2020-05-28] MEDS: SCOPOLAMINE PATCH, 1.5MG PATCH.TD72 TD SCH (15:59)
[2020-05-28] MEDS: FILTER, DISP 1.2 MICRON FOR TPN/PVN IV SCH (16:32)
[2020-05-28] MEDS ORDERED: [UNRECOGNIZED DRUG - OTHER] IV SCH (17:00)
[2020-05-28] MEDS ORDERED: DEXTROSE 70% IV SCH (17:00)
[2020-05-28] MEDS ORDERED: AMINO ACID 10% IV SCH (17:00)
[2020-05-28] MEDS ORDERED: SMOF TPN IV SCH (17:00)
[2020-05-28] MEDS ORDERED: FAT EMUL IV SCH (17:00)
[2020-05-28] MEDS: CALCITRIOL 1 MCG/ML SOL PO SCH (17:05)
[2020-05-28 19:25] VITALS: BP 129/86
[2020-05-28] MEDS: FENTANYL 50 MCG PATCH TD SCH (20:00)
[2020-05-28] MEDS: FENTANYL REMOVE PATCH NOTE XX SCH (20:00)
[2020-05-28] MEDS: hydrOXyzine 10MG TABLET PO SCH (21:26)
[2020-05-28] MEDS: LACTATED RINGERS 1,000 ML IV SCH (23:18)
[2020-05-29] MEDS: LACTATED RINGERS 1,000 ML IV SCH (00:56)
[2020-05-29] MEDS: PIPERACILLIN/TAZO/PMX 3.375GM 50 ML IV SCH ×4 (00:57→18:36)
[2020-05-29] MEDS: HYDROmorphone 1 MG/ML, 1ML INJ IV PRN ×7 (01:02→23:28)
[2020-05-29] MEDS: ONDANSETRON 2MG/ML, 2ML IVPush PRN (01:14)
[2020-05-29 01:48] VITALS: BP 119/78
[2020-05-29] MEDS: DIPHENHYDRAMINE 12.5MG/5ML, 10ML UDC PO SCH ×4 (03:00→22:20)
[2020-05-29] MEDS: DIPHENHYDRAMINE 50 MG/ML, 1ML IVPush PRN ×4 (03:50→22:20)
[2020-05-29] MEDS: ASPIRIN 325 MG TABLET PO SCH (04:48)
[2020-05-29] MEDS: NYSTATIN 500,000 UNITS/5 ML UDC PO SCH ×4 (04:49→21:21)
[2020-05-29 05:28] LABS: ANION GAP 9 mmol/L (5-15); CALCIUM 9.3 mg/dL (8.5-10.1); CHLORIDE 104 mmol/L (98-107)
[2020-05-29 05:29] LABS: CREATININE 1.18 mg/dL (0.55-1.02)
[2020-05-29] MEDS: LORazepam 2 MG/ML, 1ML IVPush SCH ×3 (06:43→19:27)
[2020-05-29 08:11] VITALS: BP 137/85
[2020-05-29] MEDS: INSULIN LISPRO 100 UNITS/ML, PEN 3ML SS HIGH DOSE SQ-INSULIN SCH (09:00)
[2020-05-29] MEDS: OPIUM TINCTURE 1% 10 MG/ML ORAL.SOL PO SCH ×3 (10:04→21:22)
[2020-05-29] MEDS: SODIUM CHLORIDE FLUSH 10ML SYR IVF SCH (10:04)
[2020-05-29] MEDS: MICAFUNGIN 100 MG in SODIUM CHLORIDE 0.9% 100 ML IV SCH (12:27)
[2020-05-29 14:13] VITALS: BP 138/71
[2020-05-29] MEDS ORDERED: AMINO ACID 10% IV SCH (17:00)
[2020-05-29] MEDS ORDERED: [UNRECOGNIZED DRUG - OTHER] IV SCH (17:00)
[2020-05-29] MEDS ORDERED: DEXTROSE 70% IV SCH (17:00)
[2020-05-29] MEDS ORDERED: SMOF TPN IV SCH (17:00)
[2020-05-29] MEDS ORDERED: FAT EMUL IV SCH (17:00)
[2020-05-29] MEDS: FILTER, DISP 1.2 MICRON FOR TPN/PVN IV SCH (17:03)
[2020-05-29] MEDS: CALCITRIOL 1 MCG/ML SOL PO SCH (17:04)
[2020-05-29] MEDS: KETOROLAC 30 MG/1 ML IVPush PRN (18:35)
[2020-05-29 19:22] VITALS: BP 126/84
[2020-05-29] MEDS: hydrOXyzine 10MG TABLET PO SCH (21:22)
[2020-05-30] MEDS: LORazepam 2 MG/ML, 1ML IVPush SCH ×4 (01:39→20:09)
[2020-05-30] MEDS: PIPERACILLIN/TAZO/PMX 3.375GM 50 ML IV SCH ×4 (01:39→20:09)
[2020-05-30 02:33] VITALS: BP 104/74
[2020-05-30] MEDS: HYDROmorphone 1 MG/ML, 1ML INJ IV PRN ×6 (02:39→20:22)
[2020-05-30] MEDS: DIPHENHYDRAMINE 12.5MG/5ML, 10ML UDC PO SCH ×4 (04:30→22:30)
[2020-05-30] MEDS: DIPHENHYDRAMINE 50 MG/ML, 1ML IVPush PRN ×3 (04:36→17:04)
[2020-05-30] MEDS: ASPIRIN 325 MG TABLET PO SCH (05:48)
[2020-05-30] MEDS: NYSTATIN 500,000 UNITS/5 ML UDC PO SCH ×4 (05:48→20:09)
[2020-05-30] MEDS: INSULIN LISPRO 100 UNITS/ML, PEN 3ML SS HIGH DOSE SQ-INSULIN SCH (09:00)
[2020-05-30] MEDS: OPIUM TINCTURE 1% 10 MG/ML ORAL.SOL PO SCH ×3 (10:17→20:09)
[2020-05-30] MEDS: KETOROLAC 30 MG/1 ML IVPush PRN (10:18)
[2020-05-30 10:41] VITALS: BP 108/77
[2020-05-30] MEDS: MICAFUNGIN 100 MG in SODIUM CHLORIDE 0.9% 100 ML IV SCH (13:10)
[2020-05-30 13:46] VITALS: BP 104/70
[2020-05-30] MEDS: TPN PER PHARMACY MC SCH (17:00)
[2020-05-30] MEDS ORDERED: FAT EMUL IV SCH (17:00)
[2020-05-30] MEDS ORDERED: DEXTROSE 70% IV SCH (17:00)
[2020-05-30] MEDS ORDERED: AMINO ACID 10% IV SCH (17:00)
[2020-05-30] MEDS ORDERED: [UNRECOGNIZED DRUG - OTHER] IV SCH (17:00)
[2020-05-30] MEDS ORDERED: SMOF TPN IV SCH (17:00)
[2020-05-30] MEDS: FILTER, DISP 1.2 MICRON FOR TPN/PVN IV SCH (17:05)
[2020-05-30] MEDS: CALCITRIOL 1 MCG/ML SOL PO SCH (17:05)
[2020-05-30 18:37] VITALS: BP 119/84
[2020-05-30] MEDS: hydrOXyzine 10MG TABLET PO SCH (20:09)
[2020-05-31] MEDS: DIPHENHYDRAMINE 50 MG/ML, 1ML IVPush PRN ×4 (00:07→17:09)
[2020-05-31] MEDS: KETOROLAC 30 MG/1 ML IVPush PRN ×2 (00:12→13:13)
[2020-05-31 01:03] VITALS: BP 117/81
[2020-05-31] MEDS: PIPERACILLIN/TAZO/PMX 3.375GM 50 ML IV SCH ×4 (02:08→19:52)
[2020-05-31] MEDS: LORazepam 2 MG/ML, 1ML IVPush SCH ×3 (02:08→14:08)
[2020-05-31] MEDS: DIPHENHYDRAMINE 12.5MG/5ML, 10ML UDC PO SCH ×4 (04:30→22:30)
[2020-05-31] MEDS: NYSTATIN 500,000 UNITS/5 ML UDC PO SCH ×4 (05:46→19:52)
[2020-05-31] MEDS: ASPIRIN 325 MG TABLET PO SCH (05:46)
[2020-05-31 06:00] LABS: ALANINE AMINOTRANSFERASE 57 U/L (12-78); ALBUMIN 2.3 g/dL (3.4-5.0); ANION GAP 5 mmol/L (5-15); CALCIUM 8.8 mg/dL (8.5-10.1); CHLORIDE 106 mmol/L (98-107)
[2020-05-31 06:07] LABS: ALKALINE PHOSPHATASE 253 U/L (45-117); BILIRUBIN,TOTAL 0.3 mg/dL (0.2-1.0); PREALBUMIN 41.9 mg/dL (20.0-40.0); TOTAL PROTEIN 7.8 g/dL (6.4-8.2)
[2020-05-31 07:15] VITALS: BP 108/73
[2020-05-31] MEDS: OPIUM TINCTURE 1% 10 MG/ML ORAL.SOL PO SCH ×3 (08:33→19:52)
[2020-05-31] MEDS: morphine SULFATE ORAL.CONC 20 MG/ML PO PRN ×2 (08:33→19:52)
[2020-05-31] MEDS: INSULIN LISPRO 100 UNITS/ML, PEN 3ML SS HIGH DOSE SQ-INSULIN SCH (08:34)
[2020-05-31] MEDS: MICAFUNGIN 100 MG in SODIUM CHLORIDE 0.9% 100 ML IV SCH (11:54)
[2020-05-31 13:52] VITALS: BP 99/68
[2020-05-31] MEDS ORDERED: LORazepam 0.5MG TABLET PO PRN (15:30)
[2020-05-31] MEDS: SCOPOLAMINE PATCH, 1.5MG PATCH.TD72 TD SCH (16:30)
[2020-05-31] MEDS ORDERED: DEXTROSE 70% IV SCH ×2 (17:00)
[2020-05-31] MEDS ORDERED: SMOF TPN IV SCH ×2 (17:00)
[2020-05-31] MEDS ORDERED: FAT EMUL IV SCH ×2 (17:00)
[2020-05-31] MEDS ORDERED: AMINO ACID 10% IV SCH ×2 (17:00)
[2020-05-31] MEDS ORDERED: [UNRECOGNIZED DRUG - OTHER] IV SCH (17:00)
[2020-05-31] MEDS ORDERED: [UNRECOGNIZED DRUG - OTHER] IV SCH (17:00)
[2020-05-31] MEDS: TPN PER PHARMACY MC SCH (17:00)
[2020-05-31] MEDS: CALCITRIOL 1 MCG/ML SOL PO SCH (17:08)
[2020-05-31] MEDS: FILTER, DISP 1.2 MICRON FOR TPN/PVN IV SCH (17:52)
[2020-05-31] MEDS ORDERED: FENTANYL 25 MCG PATCH TD SCH (18:30)
[2020-05-31 18:49] VITALS: BP 103/64
[2020-05-31] MEDS: hydrOXyzine 10MG TABLET PO SCH (19:52)
[2020-05-31] MEDS: FENTANYL REMOVE PATCH NOTE XX SCH (19:52)
[2020-06-01] MEDS: DIPHENHYDRAMINE 50 MG/ML, 1ML IVPush PRN ×4 (00:35→20:15)
[2020-06-01 01:17] VITALS: BP 120/81
[2020-06-01] MEDS: PIPERACILLIN/TAZO/PMX 3.375GM 50 ML IV SCH ×4 (02:09→20:15)
[2020-06-01] MEDS: morphine SULFATE ORAL.CONC 20 MG/ML PO PRN ×2 (02:14→12:24)
[2020-06-01] MEDS: DIPHENHYDRAMINE 12.5MG/5ML, 10ML UDC PO SCH ×4 (03:47→22:26)
[2020-06-01] MEDS: NYSTATIN 500,000 UNITS/5 ML UDC PO SCH ×4 (06:11→20:39)
[2020-06-01] MEDS: ASPIRIN 325 MG TABLET PO SCH (06:11)
[2020-06-01 06:42] LABS: ANION GAP 7 mmol/L (5-15); CALCIUM 9.4 mg/dL (8.5-10.1); CHLORIDE 105 mmol/L (98-107); CREATININE 1.21 mg/dL (0.55-1.02)
[2020-06-01] MEDS: OPIUM TINCTURE 1% 10 MG/ML ORAL.SOL PO SCH ×3 (08:30→20:22)
[2020-06-01] MEDS: INSULIN LISPRO 100 UNITS/ML, PEN 3ML SS HIGH DOSE SQ-INSULIN SCH (08:57)
[2020-06-01 09:08] VITALS: BP 103/71
[2020-06-01] MEDS: MICAFUNGIN 100 MG in SODIUM CHLORIDE 0.9% 100 ML IV SCH (12:29)
[2020-06-01 15:35] VITALS: BP 99/71
[2020-06-01] MEDS ORDERED: FAT EMUL IV SCH (17:00)
[2020-06-01] MEDS ORDERED: [UNRECOGNIZED DRUG - OTHER] IV SCH (17:00)
[2020-06-01] MEDS: FILTER, DISP 1.2 MICRON FOR TPN/PVN IV SCH (17:00)
[2020-06-01] MEDS: CALCITRIOL 1 MCG/ML SOL PO SCH ×2 (17:00→18:00)
[2020-06-01] MEDS ORDERED: DEXTROSE 70% IV SCH (17:00)
[2020-06-01] MEDS ORDERED: SMOF TPN IV SCH (17:00)
[2020-06-01] MEDS ORDERED: AMINO ACID 10% IV SCH (17:00)
[2020-06-01] MEDS: TPN PER PHARMACY MC SCH (17:00)
[2020-06-01 18:49] VITALS: BP 105/77
[2020-06-01] MEDS: hydrOXyzine 10MG TABLET PO SCH (20:39)
[2020-06-02 01:24] VITALS: BP 129/88
[2020-06-02] MEDS: PIPERACILLIN/TAZO/PMX 3.375GM 50 ML IV SCH ×4 (01:58→19:50)
[2020-06-02] MEDS: DIPHENHYDRAMINE 50 MG/ML, 1ML IVPush PRN ×4 (02:03→21:15)
[2020-06-02] MEDS: DIPHENHYDRAMINE 12.5MG/5ML, 10ML UDC PO SCH ×4 (04:12→21:16)
[2020-06-02] MEDS: NYSTATIN 500,000 UNITS/5 ML UDC PO SCH ×4 (05:19→21:00)
[2020-06-02] MEDS: ASPIRIN 325 MG TABLET PO SCH (05:20)
[2020-06-02 05:48] LABS: BASOPHILS % (AUTO) 1 % (0-1); EOSINOPHILS % (AUTO) 3 % (1-7); LYMPHOCYTES % (AUTO) 14 % (22-44); MEAN CORPUSCULAR HEMOGLOBIN 31.1 pg (27.0-34.8); MEAN PLATELET VOLUME 9.6 fL (7.4-10.4); MONOCYTES % (AUTO) 10 % (2-9); NEUTROPHILS % (AUTO) 74 % (42-75); PLATELET COUNT 391 x10^3/uL (130-400); RED BLOOD COUNT 4.13 x10^6/uL (3.82-5.3); RED CELL DISTRIBUTION WIDTH 15.3 % (9.6-15.2)
[2020-06-02 05:50] LABS: ANION GAP 7 mmol/L (5-15); CALCIUM 9.4 mg/dL (8.5-10.1); CHLORIDE 104 mmol/L (98-107)
[2020-06-02 06:18] LABS: MD NO
[2020-06-02 07:25] VITALS: BP 140/97
[2020-06-02] MEDS: INSULIN LISPRO 100 UNITS/ML, PEN 3ML SS HIGH DOSE SQ-INSULIN SCH (08:33)
[2020-06-02] MEDS: OPIUM TINCTURE 1% 10 MG/ML ORAL.SOL PO SCH ×4 (08:33→21:00)
[2020-06-02] MEDS: MICAFUNGIN 100 MG in SODIUM CHLORIDE 0.9% 100 ML IV SCH (11:38)
[2020-06-02 12:50] VITALS: BP 118/81
[2020-06-02] MEDS: FILTER, DISP 1.2 MICRON FOR TPN/PVN IV SCH (16:58)
[2020-06-02] MEDS ORDERED: SMOF TPN IV SCH (17:00)
[2020-06-02] MEDS ORDERED: AMINO ACID 10% IV SCH (17:00)
[2020-06-02] MEDS ORDERED: [UNRECOGNIZED DRUG - OTHER] IV SCH (17:00)
[2020-06-02] MEDS ORDERED: DEXTROSE 70% IV SCH (17:00)
[2020-06-02] MEDS: CALCITRIOL 1 MCG/ML SOL PO SCH (17:00)
[2020-06-02] MEDS ORDERED: FAT EMUL IV SCH (17:00)
[2020-06-02] MEDS: TPN PER PHARMACY MC SCH (17:00)
[2020-06-02 18:20] VITALS: BP 127/80
[2020-06-02] MEDS: hydrOXyzine 10MG TABLET PO SCH (21:00)
[2020-06-03 00:42] VITALS: BP 117/83
[2020-06-03] MEDS: PIPERACILLIN/TAZO/PMX 3.375GM 50 ML IV SCH ×4 (01:25→20:03)
[2020-06-03] MEDS: DIPHENHYDRAMINE 50 MG/ML, 1ML IVPush PRN ×3 (04:04→18:02)
[2020-06-03] MEDS: DIPHENHYDRAMINE 12.5MG/5ML, 10ML UDC PO SCH ×4 (04:04→22:30)
[2020-06-03] MEDS: ASPIRIN 325 MG TABLET PO SCH (05:41)
[2020-06-03] MEDS: NYSTATIN 500,000 UNITS/5 ML UDC PO SCH ×3 (06:00→16:58)
[2020-06-03 06:05] LABS: ANION GAP 9 mmol/L (5-15); CALCIUM 9.1 mg/dL (8.5-10.1); CHLORIDE 104 mmol/L (98-107)
[2020-06-03 06:06] LABS: CREATININE 1.01 mg/dL (0.55-1.02)
[2020-06-03] MEDS: INSULIN LISPRO 100 UNITS/ML, PEN 3ML SS HIGH DOSE SQ-INSULIN SCH (07:10)
[2020-06-03 07:30] VITALS: BP 120/87
[2020-06-03] MEDS: OPIUM TINCTURE 1% 10 MG/ML ORAL.SOL PO SCH ×2 (09:00→16:59)
[2020-06-03] MEDS: MICAFUNGIN 100 MG in SODIUM CHLORIDE 0.9% 100 ML IV SCH (11:43)
[2020-06-03 12:42] VITALS: BP 109/77
[2020-06-03] MEDS: FILTER, DISP 1.2 MICRON FOR TPN/PVN IV SCH (16:59)
[2020-06-03] MEDS: SCOPOLAMINE PATCH, 1.5MG PATCH.TD72 TD SCH (16:59)
[2020-06-03] MEDS ORDERED: AMINO ACID 10% IV SCH (17:00)
[2020-06-03] MEDS ORDERED: [UNRECOGNIZED DRUG - OTHER] IV SCH (17:00)
[2020-06-03] MEDS ORDERED: SMOF TPN IV SCH (17:00)
[2020-06-03] MEDS ORDERED: FAT EMUL IV SCH (17:00)
[2020-06-03] MEDS ORDERED: DEXTROSE 70% IV SCH (17:00)
[2020-06-03] MEDS: TPN PER PHARMACY MC SCH (17:00)
[2020-06-03] MEDS: CALCITRIOL 1 MCG/ML SOL PO SCH (18:03)
[2020-06-03] MEDS: FENTANYL 12 MCG PATCH TD SCH (18:08)
[2020-06-03] MEDS ORDERED: FENTANYL 25 MCG PATCH TD SCH (18:30)
[2020-06-03] MEDS: FENTANYL REMOVE PATCH NOTE XX SCH (18:38)
[2020-06-03 18:48] VITALS: BP 124/82
[2020-06-03] MEDS: hydrOXyzine 10MG TABLET PO SCH (20:02)
[2020-06-04] MEDS: DIPHENHYDRAMINE 50 MG/ML, 1ML IVPush PRN ×5 (00:08→23:57)
[2020-06-04] MEDS: NYSTATIN 500,000 UNITS/5 ML UDC PO SCH ×5 (00:08→20:43)
[2020-06-04] MEDS: OPIUM TINCTURE 1% 10 MG/ML ORAL.SOL PO SCH ×4 (00:08→20:43)
[2020-06-04 00:31] VITALS: BP 128/85
[2020-06-04] MEDS: PIPERACILLIN/TAZO/PMX 3.375GM 50 ML IV SCH ×2 (01:45→08:16)
[2020-06-04] MEDS: ASPIRIN 325 MG TABLET PO SCH (05:25)
[2020-06-04] MEDS: DIPHENHYDRAMINE 12.5MG/5ML, 10ML UDC PO SCH ×4 (05:25→23:57)
[2020-06-04 06:16] LABS: BASOPHILS % (AUTO) 1 % (0-1); EOSINOPHILS % (AUTO) 4 % (1-7); LYMPHOCYTES % (AUTO) 20 % (22-44); MEAN CORPUSCULAR HEMOGLOBIN 30.5 pg (27.0-34.8); MEAN CORPUSCULAR HGB CONC 33.5 g/dL (32.4-35.8); MEAN PLATELET VOLUME 9.6 fL (7.4-10.4); MONOCYTES % (AUTO) 9 % (2-9); NEUTROPHILS % (AUTO) 66 % (42-75); PLATELET COUNT 355 x10^3/uL (130-400); RED BLOOD COUNT 4.13 x10^6/uL (3.82-5.3)
[2020-06-04 06:18] LABS: MD NO
[2020-06-04 06:27] LABS: ANION GAP 8 mmol/L (5-15); CALCIUM 8.9 mg/dL (8.5-10.1); CHLORIDE 103 mmol/L (98-107); CREATININE 0.98 mg/dL (0.55-1.02)
[2020-06-04 07:30] VITALS: BP 121/83
[2020-06-04] MEDS: INSULIN LISPRO 100 UNITS/ML, PEN 3ML SS HIGH DOSE SQ-INSULIN SCH (07:31)
[2020-06-04 13:47] VITALS: BP 103/69
[2020-06-04] MEDS ORDERED: [UNRECOGNIZED DRUG - OTHER] IV SCH (17:00)
[2020-06-04] MEDS ORDERED: AMINO ACID 10% IV SCH ×2 (17:00)
[2020-06-04] MEDS ORDERED: SMOF TPN IV SCH ×2 (17:00)
[2020-06-04] MEDS ORDERED: FAT EMUL IV SCH ×2 (17:00)
[2020-06-04] MEDS ORDERED: [UNRECOGNIZED DRUG - OTHER] IV SCH (17:00)
[2020-06-04] MEDS ORDERED: DEXTROSE 70% IV SCH ×2 (17:00)
[2020-06-04] MEDS: TPN PER PHARMACY MC SCH (17:00)
[2020-06-04] MEDS: CALCITRIOL 1 MCG/ML SOL PO SCH (17:07)
[2020-06-04] MEDS: FILTER, DISP 1.2 MICRON FOR TPN/PVN IV SCH (17:08)
[2020-06-04 18:19] VITALS: BP 122/85
[2020-06-04] MEDS: hydrOXyzine 10MG TABLET PO SCH (20:43)
[2020-06-04 23:56] LABS: MICROSCOPIC AUTO
[2020-06-05 01:48] VITALS: BP 133/89
[2020-06-05 04:28] LABS: ANION GAP 8 mmol/L (5-15); CALCIUM 8.9 mg/dL (8.5-10.1); CHLORIDE 105 mmol/L (98-107); CREATININE 0.98 mg/dL (0.55-1.02)
[2020-06-05] MEDS: NYSTATIN 500,000 UNITS/5 ML UDC PO SCH ×4 (05:52→21:31)
[2020-06-05] MEDS: DIPHENHYDRAMINE 50 MG/ML, 1ML IVPush PRN ×4 (05:52→23:59)
[2020-06-05] MEDS: ASPIRIN 325 MG TABLET PO SCH (05:52)
[2020-06-05] MEDS: DIPHENHYDRAMINE 12.5MG/5ML, 10ML UDC PO SCH ×4 (05:52→23:59)
[2020-06-05] MEDS: INSULIN LISPRO 100 UNITS/ML, PEN 3ML SS HIGH DOSE SQ-INSULIN SCH (08:18)
[2020-06-05] MEDS: OPIUM TINCTURE 1% 10 MG/ML ORAL.SOL PO SCH ×3 (08:24→21:32)
[2020-06-05 08:46] VITALS: BP 115/77
[2020-06-05 14:18] VITALS: BP 111/72
[2020-06-05] MEDS ORDERED: AMINO ACID 10% IV SCH (16:00)
[2020-06-05] MEDS ORDERED: [UNRECOGNIZED DRUG - OTHER] IV SCH (16:00)
[2020-06-05] MEDS ORDERED: DEXTROSE 70% IV SCH (16:00)
[2020-06-05] MEDS ORDERED: FAT EMUL IV SCH (16:00)
[2020-06-05] MEDS ORDERED: SMOF TPN IV SCH (16:00)
[2020-06-05] MEDS: FILTER, DISP 1.2 MICRON FOR TPN/PVN IV SCH (16:07)
[2020-06-05] MEDS: TPN PER PHARMACY MC SCH (16:15)
[2020-06-05] MEDS: CALCITRIOL 1 MCG/ML SOL PO SCH (17:14)
[2020-06-05 19:25] VITALS: BP 125/98
[2020-06-05] MEDS: hydrOXyzine 10MG TABLET PO SCH (21:32)
[2020-06-06 00:37] VITALS: BP 123/73
[2020-06-06 04:53] LABS: ANION GAP 6 mmol/L (5-15); CHLORIDE 106 mmol/L (98-107)
[2020-06-06] MEDS: DIPHENHYDRAMINE 12.5MG/5ML, 10ML UDC PO SCH ×3 (06:00→18:00)
[2020-06-06] MEDS: NYSTATIN 500,000 UNITS/5 ML UDC PO SCH ×4 (06:05→21:32)
[2020-06-06] MEDS: DIPHENHYDRAMINE 50 MG/ML, 1ML IVPush PRN ×4 (06:05→23:50)
[2020-06-06] MEDS: ASPIRIN 325 MG TABLET PO SCH (06:05)
[2020-06-06 06:48] VITALS: BP 124/88
[2020-06-06] MEDS: INSULIN LISPRO 100 UNITS/ML, PEN 3ML SS HIGH DOSE SQ-INSULIN SCH (09:00)
[2020-06-06] MEDS: OPIUM TINCTURE 1% 10 MG/ML ORAL.SOL PO SCH ×3 (09:19→21:32)
[2020-06-06 13:19] VITALS: BP 135/93
[2020-06-06] MEDS: ONDANSETRON 2MG/ML, 2ML IVPush PRN (14:31)
[2020-06-06] MEDS: SCOPOLAMINE PATCH, 1.5MG PATCH.TD72 TD SCH (16:41)
[2020-06-06] MEDS: FILTER, DISP 1.2 MICRON FOR TPN/PVN IV SCH (16:43)
[2020-06-06] MEDS: TPN PER PHARMACY MC SCH (16:50)
[2020-06-06] MEDS ORDERED: AMINO ACID 10% IV SCH (17:00)
[2020-06-06] MEDS ORDERED: DEXTROSE 70% IV SCH (17:00)
[2020-06-06] MEDS ORDERED: SMOF TPN IV SCH (17:00)
[2020-06-06] MEDS ORDERED: [UNRECOGNIZED DRUG - OTHER] IV SCH (17:00)
[2020-06-06] MEDS ORDERED: FAT EMUL IV SCH (17:00)
[2020-06-06] MEDS: CALCITRIOL 1 MCG/ML SOL PO SCH (18:03)
[2020-06-06] MEDS: FENTANYL REMOVE PATCH NOTE XX SCH (18:37)
[2020-06-06] MEDS: FENTANYL 12 MCG PATCH TD SCH (18:37)
[2020-06-06] MEDS: hydrOXyzine 10MG TABLET PO SCH (21:32)
[2020-06-06 21:35] VITALS: BP 119/84
[2020-06-07 03:16] VITALS: BP 110/73
[2020-06-07 04:54] LABS: ALANINE AMINOTRANSFERASE 51 U/L (12-78); ALBUMIN 2.9 g/dL (3.4-5.0); ANION GAP 5 mmol/L (5-15); CHLORIDE 107 mmol/L (98-107); CREATININE 1.01 mg/dL (0.55-1.02)
[2020-06-07 05:00] LABS: ALKALINE PHOSPHATASE 164 U/L (45-117); BILIRUBIN,TOTAL 0.3 mg/dL (0.2-1.0); PREALBUMIN 54.4 mg/dL (20.0-40.0); TOTAL PROTEIN 8.9 g/dL (6.4-8.2); TRIGLYCERIDES 251 mg/dL (50-200)
[2020-06-07] MEDS: DIPHENHYDRAMINE 12.5MG/5ML, 10ML UDC PO SCH ×4 (06:00→17:38)
[2020-06-07] MEDS: DIPHENHYDRAMINE 50 MG/ML, 1ML IVPush PRN ×3 (06:01→17:38)
[2020-06-07] MEDS: NYSTATIN 500,000 UNITS/5 ML UDC PO SCH ×4 (06:01→21:35)
[2020-06-07] MEDS: ASPIRIN 325 MG TABLET PO SCH (06:01)
[2020-06-07] MEDS: INSULIN LISPRO 100 UNITS/ML, PEN 3ML SS HIGH DOSE SQ-INSULIN SCH (07:26)
[2020-06-07 07:38] VITALS: BP 110/80
[2020-06-07] MEDS: OPIUM TINCTURE 1% 10 MG/ML ORAL.SOL PO SCH ×3 (09:00→21:36)
[2020-06-07 13:18] VITALS: BP 111/75
[2020-06-07] MEDS ORDERED: AMINO ACID 10% IV SCH (17:00)
[2020-06-07] MEDS ORDERED: [UNRECOGNIZED DRUG - OTHER] IV SCH (17:00)
[2020-06-07] MEDS ORDERED: FAT EMUL IV SCH (17:00)
[2020-06-07] MEDS ORDERED: SMOF TPN IV SCH (17:00)
[2020-06-07] MEDS ORDERED: DEXTROSE 70% IV SCH (17:00)
[2020-06-07] MEDS: TPN PER PHARMACY MC SCH (17:00)
[2020-06-07] MEDS: FILTER, DISP 1.2 MICRON FOR TPN/PVN IV SCH (17:07)
[2020-06-07] MEDS: CALCITRIOL 1 MCG/ML SOL PO SCH (17:38)
[2020-06-07 18:49] VITALS: BP 119/88
[2020-06-07] MEDS: hydrOXyzine 10MG TABLET PO SCH (21:36)
[2020-06-08] MEDS: DIPHENHYDRAMINE 50 MG/ML, 1ML IVPush PRN ×4 (00:07→18:23)
[2020-06-08 01:54] VITALS: BP 117/80
[2020-06-08] MEDS: DIPHENHYDRAMINE 12.5MG/5ML, 10ML UDC PO SCH ×4 (06:00→18:00)
[2020-06-08] MEDS: NYSTATIN 500,000 UNITS/5 ML UDC PO SCH ×4 (06:19→21:00)
[2020-06-08] MEDS: ASPIRIN 325 MG TABLET PO SCH (06:19)
[2020-06-08 07:02] VITALS: BP 111/79
[2020-06-08] MEDS: INSULIN LISPRO 100 UNITS/ML, PEN 3ML SS HIGH DOSE SQ-INSULIN SCH (09:00)
[2020-06-08] MEDS: OPIUM TINCTURE 1% 10 MG/ML ORAL.SOL PO SCH ×3 (09:08→21:00)
[2020-06-08] MEDS: ONDANSETRON 2MG/ML, 2ML IVPush PRN (09:12)
[2020-06-08 12:40] VITALS: BP 114/79
[2020-06-08] MEDS ORDERED: AMINO ACID 10% IV SCH (17:00)
[2020-06-08] MEDS: TPN PER PHARMACY MC SCH (17:00)
[2020-06-08] MEDS ORDERED: SMOF TPN IV SCH (17:00)
[2020-06-08] MEDS ORDERED: FAT EMUL IV SCH (17:00)
[2020-06-08] MEDS ORDERED: DEXTROSE 70% IV SCH (17:00)
[2020-06-08] MEDS ORDERED: [UNRECOGNIZED DRUG - OTHER] IV SCH (17:00)
[2020-06-08] MEDS: FILTER, DISP 1.2 MICRON FOR TPN/PVN IV SCH (17:20)
[2020-06-08] MEDS: CALCITRIOL 1 MCG/ML SOL PO SCH (18:23)
[2020-06-08 18:34] VITALS: BP 133/88
[2020-06-08] MEDS: hydrOXyzine 10MG TABLET PO SCH (21:00)
[2020-06-08] MEDS: morphine SULFATE ORAL.CONC 20 MG/ML PO PRN (21:28)
[2020-06-09] MEDS: DIPHENHYDRAMINE 50 MG/ML, 1ML IVPush PRN ×3 (00:22→12:24)
[2020-06-09 00:37] VITALS: BP 134/98
[2020-06-09] MEDS: morphine SULFATE ORAL.CONC 20 MG/ML PO PRN (01:09)
[2020-06-09] MEDS: DIPHENHYDRAMINE 12.5MG/5ML, 10ML UDC PO SCH ×3 (05:32→12:00)
[2020-06-09] MEDS: ASPIRIN 325 MG TABLET PO SCH (05:57)
[2020-06-09] MEDS: NYSTATIN 500,000 UNITS/5 ML UDC PO SCH ×2 (05:57→11:00)
[2020-06-09 06:23] LABS: ANION GAP 8 mmol/L (5-15); CALCIUM 9.2 mg/dL (8.5-10.1); CHLORIDE 105 mmol/L (98-107); CREATININE 0.98 mg/dL (0.55-1.02)
[2020-06-09 07:25] VITALS: BP 121/88
[2020-06-09] MEDS: INSULIN LISPRO 100 UNITS/ML, PEN 3ML SS HIGH DOSE SQ-INSULIN SCH (09:00)
[2020-06-09] MEDS: OPIUM TINCTURE 1% 10 MG/ML ORAL.SOL PO SCH (10:10)
[2020-06-09 13:53] VITALS: BP 115/79
[2020-06-09 14:48] LABS: MICROSCOPIC INDICATED
[2020-06-09] MEDS ORDERED: FAT EMUL IV SCH (17:00)
[2020-06-09] MEDS ORDERED: SMOF TPN IV SCH (17:00)
[2020-06-09] MEDS ORDERED: DEXTROSE 70% IV SCH (17:00)
[2020-06-09] MEDS ORDERED: [UNRECOGNIZED DRUG - OTHER] IV SCH (17:00)
[2020-06-09] MEDS ORDERED: AMINO ACID 10% IV SCH (17:00)
== END 2020-06-09 15:33 | disposition home or self-care (01) | DRG 871 ==
LOC: ED 14:55 → EDIP 16:04 → 4NW 20:30 → CCU 05-22 13:40 → 4NW 05-25 13:20
PROVIDERS: ADMIT Obstetrics & Gynecology; ATTEND Obstetrics & Gynecology
PROC: 02HV33Z Insertion of Infusion Device into Superior Vena Cava, Percutaneous Approach (ICD-10-PCS; 2020-03-21)
PROC: B5181ZA Fluoroscopy of Superior Vena Cava using Low Osmolar Contrast, Guidance (ICD-10-PCS; 2020-03-21)
PROC: B548ZZA Ultrasonography of Superior Vena Cava, Guidance (ICD-10-PCS; 2020-03-21)
PROC: 0DJ08ZZ Inspection of Upper Intestinal Tract, Via Natural or Artificial Opening Endoscopic (ICD-10-PCS; 2020-03-23)
PROC: 0DJD8ZZ Inspection of Lower Intestinal Tract, Via Natural or Artificial Opening Endoscopic (ICD-10-PCS; 2020-03-24)
PROC: 0D758DZ Dilation of Esophagus with Intraluminal Device, Via Natural or Artificial Opening Endoscopic (ICD-10-PCS; principal; 2020-03-24 14:00)
PROC: 0T9B70Z Drainage of Bladder with Drainage Device, Via Natural or Artificial Opening (ICD-10-PCS; 2020-04-04)
PROC: 0DJD8ZZ Inspection of Lower Intestinal Tract, Via Natural or Artificial Opening Endoscopic (ICD-10-PCS; 2020-04-09)
PROC: 0DJ08ZZ Inspection of Upper Intestinal Tract, Via Natural or Artificial Opening Endoscopic (ICD-10-PCS; 2020-04-09)
PROC: 0D758DZ Dilation of Esophagus with Intraluminal Device, Via Natural or Artificial Opening Endoscopic (ICD-10-PCS; 2020-04-15)
PROC: 0W3P8ZZ Control Bleeding in Gastrointestinal Tract, Via Natural or Artificial Opening Endoscopic (ICD-10-PCS; 2020-05-05)
PROC: 0D768ZZ Dilation of Stomach, Via Natural or Artificial Opening Endoscopic (ICD-10-PCS; 2020-05-05)
PROC: BT1 Imaging, Urinary System, Fluoroscopy (ICD-10-PCS; 2020-05-21)
PROC: 0T9030Z Drainage of Right Kidney with Drainage Device, Percutaneous Approach (ICD-10-PCS; 2020-05-22)
PROC: 0T9130Z Drainage of Left Kidney with Drainage Device, Percutaneous Approach (ICD-10-PCS; 2020-05-22)
PROC: 02HV33Z Insertion of Infusion Device into Superior Vena Cava, Percutaneous Approach (ICD-10-PCS; 2020-05-30)
PROC: B5181ZA Fluoroscopy of Superior Vena Cava using Low Osmolar Contrast, Guidance (ICD-10-PCS; 2020-05-30)
PROC: B548ZZA Ultrasonography of Superior Vena Cava, Guidance (ICD-10-PCS; 2020-05-30)
DX: A41.9 Sepsis, unspecified organism (principal); E43 Unspecified severe protein-calorie malnutrition; R65.21 Severe sepsis with septic shock; N17.0 Acute kidney failure with tubular necrosis; K31.5 Obstruction of duodenum; N17.9 Acute kidney failure, unspecified; I82.719 Chronic embolism and thrombosis of superficial veins of unspecified upper extremity; I82.619 Acute embolism and thrombosis of superficial veins of unspecified upper extremity; K52.0 Gastroenteritis and colitis due to radiation; K31.1 Adult hypertrophic pyloric stenosis; Z68.1 Body mass index [BMI] 19.9 or less, adult; N13.6 Pyonephrosis; E87.2 Acidosis; F11.20 Opioid dependence, uncomplicated; N82.8 Other female genital tract fistulae; E86.0 Dehydration; Z85.41 Personal history of malignant neoplasm of cervix uteri; E87.6 Hypokalemia; E83.42 Hypomagnesemia; D64.9 Anemia, unspecified; Z93.3 Colostomy status; K31.84 Gastroparesis; B95.8 Unspecified staphylococcus as the cause of diseases classified elsewhere; E83.39 Other disorders of phosphorus metabolism; E86.1 Hypovolemia; F41.9 Anxiety disorder, unspecified; K66.0 Peritoneal adhesions (postprocedural) (postinfection); Z80.0 Family history of malignant neoplasm of digestive organs; Z79.2 Long term (current) use of antibiotics; Z87.440 Personal history of urinary (tract) infections; Z92.3 Personal history of irradiation; Z90.710 Acquired absence of both cervix and uterus; Z20.828 Contact with and (suspected) exposure to other viral communicable diseases; B96.1 Klebsiella pneumoniae [K. pneumoniae] as the cause of diseases classified elsewhere; E87.5 Hyperkalemia; E11.65 Type 2 diabetes mellitus with hyperglycemia; E11.43 Type 2 diabetes mellitus with diabetic autonomic (poly)neuropathy; G47.00 Insomnia, unspecified; G89.29 Other chronic pain; I10 Essential (primary) hypertension; K21.9 Gastro-esophageal reflux disease without esophagitis; Z83.3 Family history of diabetes mellitus; Z82.49 Family history of ischemic heart disease and other diseases of the circulatory system; N89.8 Other specified noninflammatory disorders of vagina; Z79.82 Long term (current) use of aspirin; Z87.01 Personal history of pneumonia (recurrent); Z90.49 Acquired absence of other specified parts of digestive tract; Z92.21 Personal history of antineoplastic chemotherapy
CPT/HCPCS: 36415; 50432; 74018; 74021; 74240; 74248; 74425; 76000; 84145; 87106; 96361; 96374; 96375; 99291; J1955; J3475; J3490; J7042; Q0164; 36573; 37248; 71045; 71260; 74176; 74177; 76942; 80048; 80053; 81001; 82306; 82330; 82533; 82607; 82962; 83605; 83690; 83735; 84100; 84134; 84478; 84703; 85025; 85610; 85730; 86850; 86860; 86870; 86880; 86900; 86902; 86922; 86923; 87040; 87070; 87077; 87081; 87086; 87102; 87186; 87205; 87324; 87635; 93005; C1725; C1894; G0378; J0153; J0610; J0744; J1100; J1170; J1644; J1815; J1885; J2248; J2250; J2405; J2543; J2704; J2710; J2997; J3010; J3480; J7120; Q9958; Q9967; C1729; C1751; C1769; C1874; J0330; J0780; J1200; J1720; J2060; J2310; J2370; J3420; J7030; J7040; J7050; P9016

== ENCOUNTER 2020-06-20 12:56 | Inpatient (IN) | payer MEDICAID ==
[~2020-06-20] VITALS: Ht 144.8 cm; Wt 41.0 kg
[2020-06-20] MEDS ORDERED: ONDANSETRON 2MG/ML, 2ML ONE (13:39)
[2020-06-20] MEDS ORDERED: HYDROmorphone 1 MG/ML, 1ML INJ ONE ×2 (13:39→15:26)
[2020-06-20] MEDS ORDERED: ONDANSETRON 2MG/ML, 2ML IVPush ONE (14:00)
[2020-06-20] MEDS ORDERED: SODIUM CHLORIDE 0.9% 1,000 ML IV ONE (14:00)
[2020-06-20] MEDS ORDERED: SODIUM CHLORIDE FLUSH 10ML SYR IVF ONE (14:00)
[2020-06-20] MEDS ORDERED: HYDROmorphone 1 MG/ML, 1ML INJ IV ONE (14:00)
[2020-06-20 14:02] LABS: BASOPHILS % (AUTO) 1 % (0-1); EOSINOPHILS % (AUTO) 2 % (1-7); LYMPHOCYTES % (AUTO) 11 % (22-44); MEAN CORPUSCULAR HGB CONC 34.4 g/dL (32.4-35.8); MEAN PLATELET VOLUME 9.2 fL (7.4-10.4); MONOCYTES % (AUTO) 4 % (2-9); NEUTROPHILS % (AUTO) 83 % (42-75); PLATELET COUNT 262 x10^3/uL (130-400); RED BLOOD COUNT 3.87 x10^6/uL (3.82-5.3); RED CELL DISTRIBUTION WIDTH 15.3 % (9.6-15.2)
[2020-06-20 14:06] LABS: MD NO
[2020-06-20 14:16] LABS: ALBUMIN 2.9 g/dL (3.4-5.0); ANION GAP 5 mmol/L (5-15); CHLORIDE 105 mmol/L (98-107)
[2020-06-20 14:19] LABS: ALANINE AMINOTRANSFERASE 100 U/L (12-78); ALKALINE PHOSPHATASE 219 U/L (45-117); BILIRUBIN,TOTAL 0.2 mg/dL (0.2-1.0); TOTAL PROTEIN 9.1 g/dL (6.4-8.2)
--- NOTE | 2020-06-20 14:20 | NUR ---
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 vss. [employer].
[2020-06-20] MEDS ORDERED: OMNIPAQUE 350 MG/ML, 100ML BOTTLE ONE (14:30)
[2020-06-20] MEDS ORDERED: HYDROmorphone 1 MG/ML, 1ML INJ IV STA (15:25)
--- NOTE | 2020-06-20 15:34 | NUR ---
LATE ENTRY: 29 YO W/ C/O DIFFUSE PAIN IN ABD STARTING THIS AM. PT WITH NAUSEA, ONE EPISODE EMESIS. PT WITH SIGNIFICANT HX SBS, ILLECONDUIT, NEPHROSTOMY, COLOSTOMY. PT WITH HX CERVICAL CA. [facility] WITH A [address] NAGY EVALUATED. PATIENT ATTACHED TO ALL MONITORS, VSS (BASELINE TACHYCARDIA PER PATIENT), AT BEDSIDE, PT POSITIONED TO COMFORT
--- NOTE | 2020-06-20 15:36 | NUR ---
PT BACK FROM CT, REATTACHED TO ORDERED FLUIDS, COMPLAINTS OF ABDOMINAL PAIN, MEDICATED PER EMAR, VSS, AT BEDSIDE.
[2020-06-20 18:51] VITALS: BP 129/94
[2020-06-20] MEDS ORDERED: MORPHINE SULFATE 4 MG/ML, 1ML IVPush PRN (19:30)
[2020-06-20] MEDS ORDERED: PROCHLORPERAZINE 5 MG/ML, 2ML IVPush PRN (19:30)
[2020-06-20] MEDS ORDERED: LACTATED RINGERS 1,000 ML IV SCH (19:30)
[2020-06-20] MEDS: DIPHENHYDRAMINE 50 MG/ML, 1ML IVPush PRN (19:43)
[2020-06-20] MEDS ORDERED: ONDANSETRON 2MG/ML, 2ML IVPush PRN (20:30)
[2020-06-20] MEDS: HYDROmorphone 2 MG/ML, 1ML IVPush PRN (20:50)
[2020-06-20] MEDS: SCOPOLAMINE 1MG PATCH TD SCH (20:51)
[2020-06-20] MEDS ORDERED: TPN PER PHARMACY MC PRN (21:30)
[2020-06-20] MEDS: SODIUM CHLORIDE 0.45% 1,000 ML IV SCH (21:30)
[2020-06-20] MEDS: FAMOTIDINE 20 MG/2 ML IVPush SCH (22:01)
[2020-06-20] MEDS: OPIUM TINCTURE 1% 10 MG/ML ORAL.SOL PO SCH (22:02)
[2020-06-21] MEDS: HYDROmorphone 2 MG/ML, 1ML IVPush PRN ×5 (00:54→17:45)
[2020-06-21 00:58] VITALS: BP 110/76
[2020-06-21] MEDS: DIPHENHYDRAMINE 50 MG/ML, 1ML IVPush PRN ×4 (01:29→19:28)
[2020-06-21] MEDS: ASPIRIN 325 MG TABLET PO SCH (04:47)
[2020-06-21 05:14] LABS: BASOPHILS % (AUTO) 0 % (0-1); EOSINOPHILS % (AUTO) 2 % (1-7); LYMPHOCYTES % (AUTO) 10 % (22-44); MEAN CORPUSCULAR HEMOGLOBIN 31.4 pg (27.0-34.8); MEAN CORPUSCULAR HGB CONC 34.2 g/dL (32.4-35.8); MEAN PLATELET VOLUME 9.3 fL (7.4-10.4); MONOCYTES % (AUTO) 4 % (2-9); NEUTROPHILS % (AUTO) 84 % (42-75); PLATELET COUNT 250 x10^3/uL (130-400)
[2020-06-21 05:17] LABS: MD NO
[2020-06-21 05:22] LABS: ALBUMIN 2.8 g/dL (3.4-5.0); ANION GAP 8 mmol/L (5-15); CALCIUM 8.8 mg/dL (8.5-10.1); CHLORIDE 105 mmol/L (98-107)
[2020-06-21 05:25] LABS: ALANINE AMINOTRANSFERASE 109 U/L (12-78); ALKALINE PHOSPHATASE 212 U/L (45-117); BILIRUBIN,TOTAL 0.4 mg/dL (0.2-1.0); CREATININE 0.79 mg/dL (0.55-1.02); TOTAL PROTEIN 8.1 g/dL (6.4-8.2)
[2020-06-21] MEDS: FAMOTIDINE 20 MG/2 ML IVPush SCH ×2 (07:34→21:42)
[2020-06-21 08:00] VITALS: BP 118/82
[2020-06-21] MEDS: OPIUM TINCTURE 1% 10 MG/ML ORAL.SOL PO SCH ×3 (08:23→21:42)
[2020-06-21] MEDS: SODIUM CHLORIDE 0.45% 1,000 ML IV SCH (10:17)
[2020-06-21 14:00] VITALS: BP 113/78
[2020-06-21] MEDS: FILTER 1.2 MICRON FOR TPN/PVN IV PRN (15:14)
[2020-06-21] MEDS: CARVEDILOL 3.125 MG TABLET PO SCH (16:19)
[2020-06-21] MEDS ORDERED: DEXTROSE 70% IV SCH (17:00)
[2020-06-21] MEDS ORDERED: SMOF TPN IV SCH (17:00)
[2020-06-21] MEDS ORDERED: FAT EMUL IV SCH (17:00)
[2020-06-21] MEDS ORDERED: [UNRECOGNIZED DRUG - OTHER] IV SCH (17:00)
[2020-06-21] MEDS ORDERED: AMINO ACID 10% IV SCH (17:00)
[2020-06-21] MEDS ORDERED: DEXTROSE 50%, 50ML SYRINGE IVPush PRN (17:00)
[2020-06-21] MEDS ORDERED: DEXTROSE 10% 500 ML IV PRN (17:00)
[2020-06-21 19:20] VITALS: BP 118/74
[2020-06-21] MEDS: INSULIN REGULAR LOW DOSE Q6H X 48HRS SQ-INSULIN SCH (21:00)
[2020-06-21] MEDS ORDERED: HYDROmorphone 1 MG/ML, 1ML INJ ONE (21:33)
[2020-06-21] MEDS: HYDROmorphone 1 MG/ML, 1ML INJ IVPush PRN (21:42)
[2020-06-22] MEDS: DIPHENHYDRAMINE 50 MG/ML, 1ML IVPush PRN ×4 (01:40→20:20)
[2020-06-22] MEDS: HYDROmorphone 1 MG/ML, 1ML INJ IVPush PRN ×6 (01:40→21:04)
[2020-06-22 01:46] VITALS: BP 107/76
[2020-06-22] MEDS: SODIUM CHLORIDE 0.45% 1,000 ML IV SCH ×2 (03:00→11:51)
[2020-06-22] MEDS: INSULIN REGULAR LOW DOSE Q6H X 48HRS SQ-INSULIN SCH ×4 (03:00→20:29)
[2020-06-22 04:49] LABS: ANION GAP 3 mmol/L (5-15); CALCIUM 8.5 mg/dL (8.5-10.1); CHLORIDE 100 mmol/L (98-107); CREATININE 0.67 mg/dL (0.55-1.02); TRIGLYCERIDES 179 mg/dL (50-200)
[2020-06-22 04:53] LABS: PREALBUMIN 34.9 mg/dL (20.0-40.0)
[2020-06-22] MEDS: ASPIRIN 325 MG TABLET PO SCH (05:44)
[2020-06-22] MEDS: CARVEDILOL 3.125 MG TABLET PO SCH ×2 (05:44→18:29)
[2020-06-22] MEDS: FAMOTIDINE 20 MG/2 ML IVPush SCH (08:13)
[2020-06-22] MEDS: OPIUM TINCTURE 1% 10 MG/ML ORAL.SOL PO SCH ×3 (08:13→21:04)
[2020-06-22 08:25] VITALS: BP 120/84
[2020-06-22 13:43] VITALS: BP 114/76
[2020-06-22] MEDS ORDERED: [UNRECOGNIZED DRUG - OTHER] IV SCH (17:00)
[2020-06-22] MEDS ORDERED: SMOF TPN IV SCH ×2 (17:00)
[2020-06-22] MEDS ORDERED: AMINO ACID 10% IV SCH ×2 (17:00)
[2020-06-22] MEDS ORDERED: [UNRECOGNIZED DRUG - OTHER] IV SCH (17:00)
[2020-06-22] MEDS ORDERED: DEXTROSE 70% IV SCH ×2 (17:00)
[2020-06-22] MEDS ORDERED: FAT EMUL IV SCH ×2 (17:00)
[2020-06-22 19:40] VITALS: BP 129/82
[2020-06-23 00:16] VITALS: BP 126/84
[2020-06-23] MEDS: HYDROmorphone 1 MG/ML, 1ML INJ IVPush PRN ×7 (00:19→23:13)
[2020-06-23] MEDS: DIPHENHYDRAMINE 50 MG/ML, 1ML IVPush PRN ×4 (02:17→20:58)
[2020-06-23] MEDS: INSULIN REGULAR LOW DOSE Q6H X 48HRS SQ-INSULIN SCH ×3 (04:06→16:09)
[2020-06-23] MEDS: ASPIRIN 325 MG TABLET PO SCH (05:40)
[2020-06-23] MEDS: CARVEDILOL 3.125 MG TABLET PO SCH ×2 (05:40→16:36)
[2020-06-23 05:53] LABS: BASOPHILS % (AUTO) 1 % (0-1); EOSINOPHILS % (AUTO) 4 % (1-7); LYMPHOCYTES % (AUTO) 8 % (22-44); MEAN CORPUSCULAR HEMOGLOBIN 31.6 pg (27.0-34.8); MEAN CORPUSCULAR HGB CONC 35.1 g/dL (32.4-35.8); MONOCYTES % (AUTO) 4 % (2-9); NEUTROPHILS % (AUTO) 84 % (42-75); PLATELET COUNT 255 x10^3/uL (130-400); RED BLOOD COUNT 3.39 x10^6/uL (3.82-5.3); RED CELL DISTRIBUTION WIDTH 14.3 % (9.6-15.2)
[2020-06-23 05:59] LABS: MD NO
[2020-06-23 06:04] LABS: ANION GAP 8 mmol/L (5-15); CALCIUM 8.5 mg/dL (8.5-10.1); CHLORIDE 101 mmol/L (98-107); CREATININE 0.55 mg/dL (0.55-1.02)
[2020-06-23] MEDS: SODIUM CHLORIDE 0.45% 1,000 ML IV SCH (06:29)
[2020-06-23 07:11] VITALS: BP 111/79
[2020-06-23] MEDS: OPIUM TINCTURE 1% 10 MG/ML ORAL.SOL PO SCH ×3 (08:24→20:58)
[2020-06-23] MEDS ORDERED: SODIUM CHLORIDE 0.45% 1,000 ML IV SCH (09:00)
[2020-06-23] MEDS: KETOROLAC 30 MG/1 ML IV SCH ×3 (09:30→20:58)
[2020-06-23 14:11] VITALS: BP 128/85
[2020-06-23] MEDS: FILTER 1.2 MICRON FOR TPN/PVN IV PRN (16:10)
[2020-06-23] MEDS ORDERED: DEXTROSE 70% IV SCH (17:00)
[2020-06-23] MEDS ORDERED: [UNRECOGNIZED DRUG - OTHER] IV SCH (17:00)
[2020-06-23] MEDS ORDERED: FAT EMUL IV SCH (17:00)
[2020-06-23] MEDS ORDERED: AMINO ACID 10% IV SCH (17:00)
[2020-06-23] MEDS ORDERED: SMOF TPN IV SCH (17:00)
[2020-06-23 19:40] VITALS: BP 122/84
[2020-06-23] MEDS: INSULIN REGULAR LOW DOSE QDAY SQ-INSULIN SCH (21:00)
[2020-06-23] MEDS: SCOPOLAMINE 1MG PATCH TD SCH (21:44)
[2020-06-24 01:24] VITALS: BP 112/71
[2020-06-24] MEDS: HYDROmorphone 1 MG/ML, 1ML INJ IVPush PRN ×8 (02:32→23:41)
[2020-06-24] MEDS: KETOROLAC 30 MG/1 ML IV SCH ×4 (03:13→21:06)
[2020-06-24] MEDS: DIPHENHYDRAMINE 50 MG/ML, 1ML IVPush PRN ×4 (03:13→21:06)
[2020-06-24 05:21] LABS: ANION GAP 5 mmol/L (5-15); CALCIUM 8.3 mg/dL (8.5-10.1); CHLORIDE 105 mmol/L (98-107); CREATININE 0.57 mg/dL (0.55-1.02)
[2020-06-24] MEDS: ASPIRIN 325 MG TABLET PO SCH (06:01)
[2020-06-24] MEDS: CARVEDILOL 3.125 MG TABLET PO SCH ×2 (06:01→17:23)
[2020-06-24 07:49] VITALS: BP 107/75
[2020-06-24] MEDS: OPIUM TINCTURE 1% 10 MG/ML ORAL.SOL PO SCH ×3 (09:18→21:06)
[2020-06-24 14:05] VITALS: BP 127/95
[2020-06-24] MEDS ORDERED: SMOF TPN IV SCH (17:00)
[2020-06-24] MEDS ORDERED: FAT EMUL IV SCH (17:00)
[2020-06-24] MEDS ORDERED: AMINO ACID 10% IV SCH (17:00)
[2020-06-24] MEDS ORDERED: [UNRECOGNIZED DRUG - OTHER] IV SCH (17:00)
[2020-06-24] MEDS ORDERED: DEXTROSE 70% IV SCH (17:00)
[2020-06-24] MEDS: FILTER 1.2 MICRON FOR TPN/PVN IV PRN (17:19)
[2020-06-24 19:24] VITALS: BP 138/92
[2020-06-24] MEDS: INSULIN REGULAR LOW DOSE QDAY SQ-INSULIN SCH (21:00)
[2020-06-25 01:24] VITALS: BP 124/86
[2020-06-25] MEDS: HYDROmorphone 1 MG/ML, 1ML INJ IVPush PRN ×7 (02:46→21:41)
[2020-06-25] MEDS: DIPHENHYDRAMINE 50 MG/ML, 1ML IVPush PRN ×4 (03:10→22:40)
[2020-06-25] MEDS: KETOROLAC 30 MG/1 ML IV SCH ×4 (03:10→21:37)
[2020-06-25] MEDS: ASPIRIN 325 MG TABLET PO SCH (05:46)
[2020-06-25] MEDS: CARVEDILOL 3.125 MG TABLET PO SCH ×2 (05:46→17:56)
[2020-06-25 06:17] LABS: ANION GAP 3 mmol/L (5-15); CALCIUM 8.1 mg/dL (8.5-10.1); CHLORIDE 105 mmol/L (98-107); CREATININE 0.53 mg/dL (0.55-1.02)
[2020-06-25 07:44] VITALS: BP 119/85
[2020-06-25] MEDS: OPIUM TINCTURE 1% 10 MG/ML ORAL.SOL PO SCH ×3 (08:53→21:37)
[2020-06-25] MEDS ORDERED: MAGNESIUM SULFATE PMX 2GM/50ML 50 ML IVPB ONE (10:30)
[2020-06-25 13:51] VITALS: BP 139/93
[2020-06-25] MEDS ORDERED: FAT EMUL IV SCH ×2 (17:00)
[2020-06-25] MEDS ORDERED: [UNRECOGNIZED DRUG - OTHER] IV SCH ×2 (17:00)
[2020-06-25] MEDS ORDERED: SMOF TPN IV SCH ×2 (17:00)
[2020-06-25] MEDS ORDERED: DEXTROSE 70% IV SCH ×2 (17:00)
[2020-06-25] MEDS ORDERED: AMINO ACID 10% IV SCH ×2 (17:00)
[2020-06-25] MEDS: FILTER 1.2 MICRON FOR TPN/PVN IV PRN (17:49)
[2020-06-25 17:54] VITALS: BP 111/77
[2020-06-25 20:16] VITALS: BP 113/83
[2020-06-25] MEDS: INSULIN REGULAR LOW DOSE QDAY SQ-INSULIN SCH (21:00)
[2020-06-26 00:53] VITALS: BP 124/80
[2020-06-26] MEDS: HYDROmorphone 1 MG/ML, 1ML INJ IVPush PRN ×7 (00:56→23:12)
[2020-06-26] MEDS: KETOROLAC 30 MG/1 ML IV SCH ×4 (03:28→21:31)
[2020-06-26] MEDS: DIPHENHYDRAMINE 50 MG/ML, 1ML IVPush PRN ×3 (05:54→18:00)
[2020-06-26] MEDS: CARVEDILOL 3.125 MG TABLET PO SCH ×2 (05:54→16:57)
[2020-06-26] MEDS: ASPIRIN 325 MG TABLET PO SCH (05:54)
[2020-06-26 05:57] VITALS: BP 119/84
[2020-06-26 06:11] LABS: ANION GAP 6 mmol/L (5-15); CALCIUM 8.1 mg/dL (8.5-10.1); CHLORIDE 105 mmol/L (98-107); CREATININE 0.59 mg/dL (0.55-1.02)
[2020-06-26 08:21] VITALS: BP 123/74
[2020-06-26] MEDS: OPIUM TINCTURE 1% 10 MG/ML ORAL.SOL PO SCH ×3 (08:27→21:31)
[2020-06-26 13:46] VITALS: BP 119/80
[2020-06-26] MEDS: FILTER 1.2 MICRON FOR TPN/PVN IV PRN (16:57)
[2020-06-26] MEDS ORDERED: DEXTROSE 70% IV SCH (17:00)
[2020-06-26] MEDS ORDERED: AMINO ACID 10% IV SCH (17:00)
[2020-06-26] MEDS ORDERED: [UNRECOGNIZED DRUG - OTHER] IV SCH (17:00)
[2020-06-26] MEDS ORDERED: SMOF TPN IV SCH (17:00)
[2020-06-26] MEDS ORDERED: FAT EMUL IV SCH (17:00)
[2020-06-26 19:31] VITALS: BP 126/84
[2020-06-26] MEDS: INSULIN REGULAR LOW DOSE QDAY SQ-INSULIN SCH (21:00)
[2020-06-26] MEDS: SCOPOLAMINE 1MG PATCH TD SCH (21:32)
[2020-06-27] MEDS: DIPHENHYDRAMINE 50 MG/ML, 1ML IVPush PRN ×4 (00:05→18:16)
[2020-06-27] MEDS: KETOROLAC 30 MG/1 ML IV SCH ×4 (03:03→21:14)
[2020-06-27 03:04] VITALS: BP 116/80
[2020-06-27] MEDS: HYDROmorphone 1 MG/ML, 1ML INJ IVPush PRN ×6 (03:11→21:44)
[2020-06-27 05:46] VITALS: BP 111/79
[2020-06-27] MEDS: CARVEDILOL 3.125 MG TABLET PO SCH ×2 (05:48→17:07)
[2020-06-27] MEDS: ASPIRIN 325 MG TABLET PO SCH (05:48)
[2020-06-27 07:44] VITALS: BP 110/78
[2020-06-27] MEDS: OPIUM TINCTURE 1% 10 MG/ML ORAL.SOL PO SCH ×3 (08:13→21:14)
[2020-06-27 12:33] VITALS: BP 122/85
[2020-06-27] MEDS ORDERED: DEXTROSE 70% IV SCH (17:00)
[2020-06-27] MEDS ORDERED: [UNRECOGNIZED DRUG - OTHER] IV SCH (17:00)
[2020-06-27] MEDS ORDERED: AMINO ACID 10% IV SCH (17:00)
[2020-06-27] MEDS ORDERED: SMOF TPN IV SCH (17:00)
[2020-06-27] MEDS ORDERED: FAT EMUL IV SCH (17:00)
[2020-06-27] MEDS: FILTER 1.2 MICRON FOR TPN/PVN IV PRN (17:06)
[2020-06-27 19:47] VITALS: BP 121/80
[2020-06-27] MEDS: INSULIN REGULAR LOW DOSE QDAY SQ-INSULIN SCH (21:00)
[2020-06-28] MEDS: DIPHENHYDRAMINE 50 MG/ML, 1ML IVPush PRN ×4 (00:19→18:56)
[2020-06-28 00:53] VITALS: BP 108/70
[2020-06-28] MEDS: HYDROmorphone 1 MG/ML, 1ML INJ IVPush PRN ×7 (01:37→22:39)
[2020-06-28] MEDS: KETOROLAC 30 MG/1 ML IV SCH (04:21)
[2020-06-28 05:58] VITALS: BP 109/75
[2020-06-28] MEDS: ASPIRIN 325 MG TABLET PO SCH (06:00)
[2020-06-28] MEDS: CARVEDILOL 3.125 MG TABLET PO SCH ×2 (06:24→18:11)
[2020-06-28 06:26] LABS: BASOPHILS % (AUTO) 1 % (0-1); EOSINOPHILS % (AUTO) 3 % (1-7); LYMPHOCYTES % (AUTO) 6 % (22-44); MEAN CORPUSCULAR HEMOGLOBIN 31.7 pg (27.0-34.8); MEAN CORPUSCULAR HGB CONC 35.2 g/dL (32.4-35.8); MEAN PLATELET VOLUME 9.2 fL (7.4-10.4); MONOCYTES % (AUTO) 5 % (2-9); NEUTROPHILS % (AUTO) 85 % (42-75); PLATELET COUNT 241 x10^3/uL (130-400); RED BLOOD COUNT 3.06 x10^6/uL (3.82-5.3); RED CELL DISTRIBUTION WIDTH 14.6 % (9.6-15.2)
[2020-06-28 06:27] LABS: MD NO
[2020-06-28 06:40] LABS: ALANINE AMINOTRANSFERASE 102 U/L (12-78); ALBUMIN 2.4 g/dL (3.4-5.0); ANION GAP 7 mmol/L (5-15); CALCIUM 8.7 mg/dL (8.5-10.1); CHLORIDE 102 mmol/L (98-107); CREATININE 0.58 mg/dL (0.55-1.02)
[2020-06-28 06:43] LABS: ALKALINE PHOSPHATASE 204 U/L (45-117); BILIRUBIN,TOTAL 0.3 mg/dL (0.2-1.0); PREALBUMIN 27.3 mg/dL (20.0-40.0); TOTAL PROTEIN 7.1 g/dL (6.4-8.2)
[2020-06-28 08:00] VITALS: BP 115/80
[2020-06-28] MEDS: OPIUM TINCTURE 1% 10 MG/ML ORAL.SOL PO SCH ×3 (09:19→21:38)
[2020-06-28 13:59] VITALS: BP 109/76
[2020-06-28] MEDS ORDERED: FAT EMUL IV SCH (16:00)
[2020-06-28] MEDS ORDERED: AMINO ACID 10% IV SCH (16:00)
[2020-06-28] MEDS ORDERED: [UNRECOGNIZED DRUG - OTHER] IV SCH (16:00)
[2020-06-28] MEDS ORDERED: DEXTROSE 70% IV SCH (16:00)
[2020-06-28] MEDS ORDERED: SMOF TPN IV SCH (16:00)
[2020-06-28] MEDS: FILTER 1.2 MICRON FOR TPN/PVN IV PRN (16:09)
[2020-06-28 18:05] VITALS: BP 108/72
[2020-06-28 19:04] VITALS: BP 128/79
[2020-06-28] MEDS: INSULIN REGULAR LOW DOSE QDAY SQ-INSULIN SCH (21:00)
[2020-06-29] MEDS: DIPHENHYDRAMINE 50 MG/ML, 1ML IVPush PRN ×4 (01:01→21:59)
[2020-06-29 01:11] VITALS: BP 109/72
[2020-06-29] MEDS: HYDROmorphone 1 MG/ML, 1ML INJ IVPush PRN ×5 (02:22→15:44)
[2020-06-29] MEDS: ASPIRIN 325 MG TABLET PO SCH (05:38)
[2020-06-29] MEDS: CARVEDILOL 3.125 MG TABLET PO SCH ×2 (05:41→17:57)
[2020-06-29 05:55] LABS: ANION GAP 3 mmol/L (5-15); CALCIUM 8.5 mg/dL (8.5-10.1); CHLORIDE 101 mmol/L (98-107); CREATININE 0.55 mg/dL (0.55-1.02)
[2020-06-29 07:30] VITALS: BP 113/73
[2020-06-29] MEDS: OPIUM TINCTURE 1% 10 MG/ML ORAL.SOL PO SCH ×3 (08:06→22:01)
[2020-06-29 14:20] VITALS: BP 109/72
[2020-06-29] MEDS: FILTER 1.2 MICRON FOR TPN/PVN IV PRN (15:45)
[2020-06-29] MEDS ORDERED: SMOF TPN IV SCH (16:00)
[2020-06-29] MEDS ORDERED: [UNRECOGNIZED DRUG - OTHER] IV SCH (16:00)
[2020-06-29] MEDS ORDERED: DEXTROSE 70% IV SCH (16:00)
[2020-06-29] MEDS ORDERED: AMINO ACID 10% IV SCH (16:00)
[2020-06-29] MEDS ORDERED: FAT EMUL IV SCH (16:00)
[2020-06-29 17:55] VITALS: BP 102/71
[2020-06-29 19:05] VITALS: BP 114/66
[2020-06-29] MEDS: INSULIN REGULAR LOW DOSE QDAY SQ-INSULIN SCH (21:00)
[2020-06-29] MEDS: SCOPOLAMINE 1MG PATCH TD SCH (22:02)
[2020-06-30 00:27] VITALS: BP 138/71
[2020-06-30] MEDS: HYDROmorphone 1 MG/ML, 1ML INJ IVPush PRN ×3 (00:44→11:46)
[2020-06-30] MEDS: DIPHENHYDRAMINE 50 MG/ML, 1ML IVPush PRN ×4 (03:48→23:06)
[2020-06-30] MEDS: ASPIRIN 325 MG TABLET PO SCH (05:38)
[2020-06-30] MEDS: CARVEDILOL 3.125 MG TABLET PO SCH ×2 (05:38→16:57)
[2020-06-30 07:46] VITALS: BP 107/76
[2020-06-30] MEDS: OPIUM TINCTURE 1% 10 MG/ML ORAL.SOL PO SCH ×3 (09:18→23:50)
[2020-06-30 13:02] VITALS: BP 111/76
[2020-06-30] MEDS ORDERED: morphine SULFATE ORAL.CONC 20 MG/ML PO PRN (14:30)
[2020-06-30] MEDS ORDERED: FAT EMUL IV SCH (16:30)
[2020-06-30] MEDS ORDERED: [UNRECOGNIZED DRUG - OTHER] IV SCH (16:30)
[2020-06-30] MEDS ORDERED: AMINO ACID 10% IV SCH (16:30)
[2020-06-30] MEDS ORDERED: SMOF TPN IV SCH (16:30)
[2020-06-30] MEDS ORDERED: DEXTROSE 70% IV SCH (16:30)
[2020-06-30] MEDS: FILTER 1.2 MICRON FOR TPN/PVN IV PRN (18:24)
[2020-06-30 19:06] VITALS: BP 106/77
[2020-06-30] MEDS: INSULIN REGULAR LOW DOSE QDAY SQ-INSULIN SCH (20:30)
[2020-07-01 00:29] VITALS: BP 103/71
[2020-07-01] MEDS: DIPHENHYDRAMINE 50 MG/ML, 1ML IVPush PRN ×2 (05:23→12:00)
[2020-07-01 06:21] VITALS: BP 107/75
[2020-07-01] MEDS: ASPIRIN 325 MG TABLET PO SCH (06:22)
[2020-07-01] MEDS: CARVEDILOL 3.125 MG TABLET PO SCH (06:22)
[2020-07-01 07:29] VITALS: BP 101/70
[2020-07-01] MEDS: OPIUM TINCTURE 1% 10 MG/ML ORAL.SOL PO SCH (09:53)
[2020-07-01 14:05] VITALS: BP 106/79
[2020-07-02] MEDS ORDERED: Benadryl IV (22:04)
== END 2020-07-01 15:27 | disposition home or self-care (01) | DRG 380 ==
LOC: ED 14:24 → EDIP 16:15 → 4NE 18:30 → 4NW 06-26 14:15
PROVIDERS: ADMIT Internal Medicine; ATTEND Internal Medicine
DX: K31.5 Obstruction of duodenum (principal); K85.00 Idiopathic acute pancreatitis without necrosis or infection; K65.9 Peritonitis, unspecified; R00.0 Tachycardia, unspecified; Z79.82 Long term (current) use of aspirin; Z85.41 Personal history of malignant neoplasm of cervix uteri; Z90.710 Acquired absence of both cervix and uterus; Z93.3 Colostomy status
CPT/HCPCS: 36415; 96361; 96374; 99285; J1955; J3475; 74177; 80048; 80053; 82962; 83605; 83690; 83735; 84100; 84134; 84478; 85025; 93005; G0378; J0610; J1170; J1815; J1885; J2405; Q9967; J1200; J2270; J3420; J7030; J7120

== ENCOUNTER 2020-07-02 15:21 | Inpatient (IN) | payer MEDICAID ==
[~2020-07-02] VITALS: Ht 144.8 cm; Wt 37.8 kg
[2020-07-02] MEDS ORDERED: HYDROmorphone 1 MG/ML, 1ML INJ IV ONE ×2 (16:00→18:00)
[2020-07-02] MEDS ORDERED: ONDANSETRON 2MG/ML, 2ML IVPush ONE (16:00)
[2020-07-02] MEDS ORDERED: SODIUM CHLORIDE 0.9% 1,000ML IVBOLUS ONE (16:00)
[2020-07-02] MEDS ORDERED: SODIUM CHLORIDE FLUSH 10ML SYR IVF ONE (16:00)
[2020-07-02] MEDS ORDERED: HYDROmorphone 1 MG/ML, 1ML INJ ONE ×2 (16:10→17:42)
[2020-07-02] MEDS ORDERED: ONDANSETRON 2MG/ML, 2ML ONE (16:10)
--- NOTE | 2020-07-02 16:10 | NUR ---
RECEIVED REPORT FROM MARIANA RICKS. PT RESTING ON KACEYMaryellenMAYFLOWER. NADN. KUMAR.
[2020-07-02 16:32] LABS: BASOPHILS % (AUTO) 1 % (0-1); EOSINOPHILS % (AUTO) 0 % (1-7); LYMPHOCYTES % (AUTO) 15 % (22-44); MEAN CORPUSCULAR HEMOGLOBIN 31.9 pg (27.0-34.8); MEAN CORPUSCULAR HGB CONC 34.4 g/dL (32.4-35.8); MEAN PLATELET VOLUME 9.1 fL (7.4-10.4); MONOCYTES % (AUTO) 8 % (2-9); NEUTROPHILS % (AUTO) 77 % (42-75); PLATELET COUNT 452 x10^3/uL (130-400); RED BLOOD COUNT 3.92 x10^6/uL (3.82-5.3); RED CELL DISTRIBUTION WIDTH 15.2 % (9.6-15.2)
[2020-07-02 16:33] LABS: MD NO
[2020-07-02 16:43] LABS: ALANINE AMINOTRANSFERASE 203 U/L (12-78); ALBUMIN 3.3 g/dL (3.4-5.0); ANION GAP 10 mmol/L (5-15); CALCIUM 9.5 mg/dL (8.5-10.1); CHLORIDE 106 mmol/L (98-107); CREATININE 0.95 mg/dL (0.55-1.02)
[2020-07-02 16:46] LABS: ALKALINE PHOSPHATASE 348 U/L (45-117); BILIRUBIN,TOTAL 0.4 mg/dL (0.2-1.0); TOTAL PROTEIN 9.6 g/dL (6.4-8.2)
[2020-07-02] MEDS ORDERED: OMNIPAQUE 350 MG/ML, 100ML BOTTLE ONE (17:15)
--- NOTE | 2020-07-02 17:24 | NUR ---
PT RESTING ON GURNEY. NADN. KUMAR.
[2020-07-02 17:32] LABS: MICROSCOPIC INDICATED
--- NOTE | 2020-07-02 17:51 | NUR ---
PT CHART REVIEWED AND PLACED FOR RECHECK.
[2020-07-02] MEDS ORDERED: CEFTRIAXONE PMX 1GM/50ML 50 ML ONE (18:29)
--- NOTE | 2020-07-02 18:38 | NUR ---
PT RESTING ON GURNEY. NADN. KUMAR.
[2020-07-02] MEDS ORDERED: CEFTRIAXONE PMX 1GM/50ML 50 ML IVPB ONE (19:00)
--- NOTE | 2020-07-02 19:02 | NUR ---
REPORT GIVEN TO CHARLEEN SCHWARTZ RN. ALL QUESTIONS ANSWERED. AWAITING PT TRANSPORT.
[2020-07-02 19:29] VITALS: BP 108/74
[2020-07-02] MEDS ORDERED: morphine SULFATE ORAL.CONC 20 MG/ML PO PRN (19:30)
[2020-07-02] MEDS ORDERED: DIPHENHYDRAMINE 50 MG CAPSULE PO PRN (19:30)
[2020-07-02] MEDS ORDERED: ONDANSETRON ODT 4 MG PO PRN (19:30)
[2020-07-02] MEDS ORDERED: POLYETHYLENE GLYCOL 17 GM PACKET PO PRN (19:30)
[2020-07-02] MEDS: CARVEDILOL 3.125 MG TABLET PO SCH (19:30)
[2020-07-02] MEDS ORDERED: LORazepam 0.5MG TABLET PO PRN (19:30)
[2020-07-02] MEDS: OPIUM TINCTURE 1% 10 MG/ML ORAL.SOL PO PRN (21:25)
[2020-07-02] MEDS: DIPHENHYDRAMINE 50 MG/ML, 1ML IVPush PRN (21:25)
[2020-07-02] MEDS: FAMOTIDINE 20 MG TABLET PO SCH (21:25)
[2020-07-02] MEDS: SODIUM CHLORIDE 0.9% 1,000 ML IV SCH (21:25)
[2020-07-02 21:49] VITALS: BP 103/68
[2020-07-02] MEDS ORDERED: Benadryl IV (22:04)
[2020-07-03 01:48] VITALS: BP 101/66
[2020-07-03] MEDS: DIPHENHYDRAMINE 50 MG/ML, 1ML IVPush PRN ×4 (03:57→22:08)
[2020-07-03 05:33] VITALS: BP 94/56
[2020-07-03] MEDS: ASPIRIN 325 MG TABLET PO SCH (05:34)
[2020-07-03] MEDS: SODIUM CHLORIDE 0.9% 1,000 ML IV SCH ×2 (05:35→16:30)
[2020-07-03] MEDS: CARVEDILOL 3.125 MG TABLET PO SCH ×2 (05:35→16:30)
[2020-07-03 05:44] LABS: BASOPHILS % (AUTO) 1 % (0-1); EOSINOPHILS % (AUTO) 4 % (1-7); LYMPHOCYTES % (AUTO) 18 % (22-44); MEAN CORPUSCULAR HEMOGLOBIN 31.5 pg (27.0-34.8); MEAN CORPUSCULAR HGB CONC 34.1 g/dL (32.4-35.8); MEAN PLATELET VOLUME 8.9 fL (7.4-10.4); MONOCYTES % (AUTO) 9 % (2-9); NEUTROPHILS % (AUTO) 68 % (42-75); PLATELET COUNT 279 x10^3/uL (130-400); RED BLOOD COUNT 3.05 x10^6/uL (3.82-5.3)
[2020-07-03 05:46] LABS: MD NO
[2020-07-03 06:00] LABS: ALANINE AMINOTRANSFERASE 151 U/L (12-78); ALBUMIN 2.5 g/dL (3.4-5.0); ANION GAP 7 mmol/L (5-15); CALCIUM 7.9 mg/dL (8.5-10.1); CHLORIDE 107 mmol/L (98-107); CREATININE 0.74 mg/dL (0.55-1.02)
[2020-07-03 06:03] LABS: ALKALINE PHOSPHATASE 240 U/L (45-117); BILIRUBIN,TOTAL 0.3 mg/dL (0.2-1.0); TOTAL PROTEIN 7.2 g/dL (6.4-8.2)
[2020-07-03 07:57] VITALS: BP 101/68
[2020-07-03] MEDS: FAMOTIDINE 20 MG TABLET PO SCH ×2 (10:19→22:08)
[2020-07-03 12:11] VITALS: BP 100/67
[2020-07-03] MEDS: HYDROmorphone 1 MG/ML, 1ML INJ IV PRN ×3 (12:21→23:14)
[2020-07-03] MEDS: HEPARIN 5,000 UNITS/ML, 1ML SQ SCH ×2 (12:22→20:00)
[2020-07-03] MEDS ORDERED: CEFTRIAXONE PMX 1GM/50ML 50 ML IV SCH (17:00)
[2020-07-03] MEDS ORDERED: PHARMACOKINETIC MONITORING MC PRN (17:30)
[2020-07-03] MEDS ORDERED: VANCOMYCIN PER PHARMACY MC PRN (17:30)
[2020-07-03] MEDS ORDERED: PHARMACOKINETIC CONSULTATION MC ONE (17:30)
[2020-07-03] MEDS ORDERED: VANCOMYCIN 900 MG in SODIUM CHLORIDE 0.9% 100 ML IV ONE (17:30)
[2020-07-03 19:37] VITALS: BP 104/71
[2020-07-03] MEDS: OPIUM TINCTURE 1% 10 MG/ML ORAL.SOL PO PRN (22:08)
[2020-07-04 00:17] VITALS: BP 119/83
[2020-07-04] MEDS: SODIUM CHLORIDE 0.9% 1,000 ML IV SCH (01:35)
[2020-07-04] MEDS: HEPARIN 5,000 UNITS/ML, 1ML SQ SCH ×3 (01:37→19:54)
[2020-07-04] MEDS: DIPHENHYDRAMINE 50 MG/ML, 1ML IVPush PRN ×3 (04:20→18:15)
[2020-07-04] MEDS: CARVEDILOL 3.125 MG TABLET PO SCH ×2 (05:45→18:12)
[2020-07-04] MEDS: ASPIRIN 325 MG TABLET PO SCH (05:45)
[2020-07-04 05:46] VITALS: BP 111/74
[2020-07-04] MEDS ORDERED: VANCOMYCIN 750 MG in SODIUM CHLORIDE 0.9% 100 ML IV SCH (06:00)
[2020-07-04 06:15] LABS: ALANINE AMINOTRANSFERASE 256 U/L (12-78); ALBUMIN 2.7 g/dL (3.4-5.0); ANION GAP 9 mmol/L (5-15); CALCIUM 8.4 mg/dL (8.5-10.1); CHLORIDE 103 mmol/L (98-107)
[2020-07-04 06:18] LABS: ALKALINE PHOSPHATASE 324 U/L (45-117); BILIRUBIN,TOTAL 0.5 mg/dL (0.2-1.0); CREATININE 0.67 mg/dL (0.55-1.02); TOTAL PROTEIN 7.8 g/dL (6.4-8.2)
[2020-07-04 06:29] LABS: BASOPHILS % (AUTO) 1 % (0-1); EOSINOPHILS % (AUTO) 5 % (1-7); LYMPHOCYTES % (AUTO) 15 % (22-44); MEAN CORPUSCULAR HEMOGLOBIN 31.6 pg (27.0-34.8); MEAN CORPUSCULAR HGB CONC 34.3 g/dL (32.4-35.8); MEAN PLATELET VOLUME 9.2 fL (7.4-10.4); MONOCYTES % (AUTO) 8 % (2-9); NEUTROPHILS % (AUTO) 71 % (42-75); PLATELET COUNT 297 x10^3/uL (130-400); RED BLOOD COUNT 3.23 x10^6/uL (3.82-5.3); RED CELL DISTRIBUTION WIDTH 14.3 % (9.6-15.2)
[2020-07-04 06:35] LABS: MD NO
[2020-07-04] MEDS ORDERED: TPN PER PHARMACY MC PRN (08:00)
[2020-07-04 08:17] VITALS: BP 97/65
[2020-07-04] MEDS ORDERED: SODIUM CHLORIDE 0.9% IV ONE (10:30)
[2020-07-04] MEDS ORDERED: MAGNESIUM SULFATE IV ONE (10:30)
[2020-07-04] MEDS ORDERED: POTASSIUM CHLORIDE IV ONE (10:30)
[2020-07-04] MEDS: INSULIN REGULAR LOW DOSE QDAY SQ-INSULIN SCH (10:40)
[2020-07-04] MEDS ORDERED: SODIUM CHLORIDE 0.9% 1,000 ML IV SCH (11:00)
[2020-07-04] MEDS: OPIUM TINCTURE 1% 10 MG/ML ORAL.SOL PO SCH ×3 (11:50→21:22)
[2020-07-04 12:31] VITALS: BP 110/75
[2020-07-04] MEDS: HYDROmorphone 1 MG/ML, 1ML INJ IV PRN ×2 (12:34→20:02)
[2020-07-04 15:38] LABS: CHOL/HDL RATIO 7.9; LDL/HDL RATIO 3.9 (0.5-3.0)
[2020-07-04] MEDS ORDERED: LEVOFLOXACIN/PMX 500MG/100ML 100 ML IV SCH (16:00)
[2020-07-04] MEDS ORDERED: [UNRECOGNIZED DRUG - OTHER] IV SCH (17:00)
[2020-07-04] MEDS ORDERED: DEXTROSE 50%, 50ML SYRINGE IVPush PRN (17:00)
[2020-07-04] MEDS ORDERED: AMINO ACID 10% IV SCH (17:00)
[2020-07-04] MEDS ORDERED: SMOF TPN IV SCH (17:00)
[2020-07-04] MEDS ORDERED: FILTER 1.2 MICRON FOR TPN/PVN IV PRN (17:00)
[2020-07-04] MEDS ORDERED: DEXTROSE 10% 500 ML IV PRN (17:00)
[2020-07-04] MEDS ORDERED: FAT EMUL IV SCH (17:00)
[2020-07-04] MEDS ORDERED: DEXTROSE 70% IV SCH (17:00)
[2020-07-04 18:36] VITALS: BP 112/77
[2020-07-04] MEDS: INSULIN REGULAR LOW DOSE Q6H X 48HRS SQ-INSULIN SCH (22:58)
[2020-07-05] MEDS: HYDROmorphone 1 MG/ML, 1ML INJ IV PRN ×5 (00:18→20:08)
[2020-07-05 00:24] VITALS: BP 110/76
[2020-07-05] MEDS: DIPHENHYDRAMINE 50 MG/ML, 1ML IVPush PRN ×4 (01:08→20:08)
[2020-07-05] MEDS: HEPARIN 5,000 UNITS/ML, 1ML SQ SCH ×3 (04:00→20:08)
[2020-07-05] MEDS: INSULIN REGULAR LOW DOSE QDAY SQ-INSULIN SCH (05:00)
[2020-07-05 05:31] LABS: BASOPHILS % (AUTO) 1 % (0-1); EOSINOPHILS % (AUTO) 3 % (1-7); LYMPHOCYTES % (AUTO) 10 % (22-44); MEAN CORPUSCULAR HEMOGLOBIN 31.6 pg (27.0-34.8); MEAN CORPUSCULAR HGB CONC 34.1 g/dL (32.4-35.8); MEAN PLATELET VOLUME 9.3 fL (7.4-10.4); MONOCYTES % (AUTO) 8 % (2-9); NEUTROPHILS % (AUTO) 79 % (42-75); PLATELET COUNT 359 x10^3/uL (130-400); RED BLOOD COUNT 3.12 x10^6/uL (3.82-5.3)
[2020-07-05 05:34] LABS: MD NO
[2020-07-05 05:39] LABS: ALBUMIN 2.6 g/dL (3.4-5.0); CHLORIDE 112 mmol/L (98-107)
[2020-07-05 05:46] LABS: ALANINE AMINOTRANSFERASE 214 U/L (12-78); ALKALINE PHOSPHATASE 340 U/L (45-117); ANION GAP 8 mmol/L (5-15); BILIRUBIN,TOTAL 0.3 mg/dL (0.2-1.0); CALCIUM 8.2 mg/dL (8.5-10.1); CREATININE 0.76 mg/dL (0.55-1.02); PREALBUMIN 24.5 mg/dL (20.0-40.0); TOTAL PROTEIN 7.6 g/dL (6.4-8.2); TRIGLYCERIDES 172 mg/dL (50-200)
[2020-07-05] MEDS: INSULIN REGULAR LOW DOSE Q6H X 48HRS SQ-INSULIN SCH ×4 (05:51→22:33)
[2020-07-05] MEDS: CARVEDILOL 3.125 MG TABLET PO SCH ×2 (06:20→17:12)
[2020-07-05] MEDS: ASPIRIN 325 MG TABLET PO SCH (06:20)
[2020-07-05 06:45] VITALS: BP 105/72
[2020-07-05] MEDS: OPIUM TINCTURE 1% 10 MG/ML ORAL.SOL PO SCH ×3 (07:48→22:25)
[2020-07-05] MEDS ORDERED: FILTER 1.2 MICRON FOR TPN/PVN IV PRN (09:00)
[2020-07-05] MEDS ORDERED: POTASSIUM PHOSPHATE 22 MEQ in SODIUM CHLORIDE 0.9% 500 ML IV ONE (12:30)
[2020-07-05] MEDS ORDERED: CEFTRIAXONE PMX 2GM/50ML 50 ML IVPB SCH (12:30)
[2020-07-05] MEDS: LINEZOLID PMX 600MG/300ML 300 ML IV SCH (13:08)
[2020-07-05 13:45] VITALS: BP 107/77
[2020-07-05] MEDS ORDERED: FAT EMUL IV SCH (17:00)
[2020-07-05] MEDS ORDERED: DEXTROSE 70% IV SCH (17:00)
[2020-07-05] MEDS ORDERED: [UNRECOGNIZED DRUG - OTHER] IV SCH (17:00)
[2020-07-05] MEDS ORDERED: AMINO ACID 10% IV SCH (17:00)
[2020-07-05] MEDS ORDERED: SMOF TPN IV SCH (17:00)
[2020-07-05 19:02] VITALS: BP 105/71
[2020-07-05] MEDS: SODIUM BICARBONATE 650 MG TABLET PO SCH (20:08)
[2020-07-06] MEDS: LINEZOLID PMX 600MG/300ML 300 ML IV SCH (00:56)
[2020-07-06] MEDS: DIPHENHYDRAMINE 50 MG/ML, 1ML IVPush PRN ×4 (02:00→22:40)
[2020-07-06] MEDS: HYDROmorphone 1 MG/ML, 1ML INJ IV PRN ×3 (02:00→21:46)
[2020-07-06 02:41] VITALS: BP 104/65
[2020-07-06] MEDS: HEPARIN 5,000 UNITS/ML, 1ML SQ SCH ×3 (04:32→19:53)
[2020-07-06 04:49] LABS: BASOPHILS % (AUTO) 2 % (0-1); EOSINOPHILS % (AUTO) 6 % (1-7); LYMPHOCYTES % (AUTO) 21 % (22-44); MD NO; MEAN CORPUSCULAR HEMOGLOBIN 32.4 pg (27.0-34.8); MEAN CORPUSCULAR HGB CONC 35.1 g/dL (32.4-35.8); MEAN PLATELET VOLUME 8.8 fL (7.4-10.4); MONOCYTES % (AUTO) 7 % (2-9); NEUTROPHILS % (AUTO) 64 % (42-75); PLATELET COUNT 301 x10^3/uL (130-400); RED BLOOD COUNT 2.76 x10^6/uL (3.82-5.3); RED CELL DISTRIBUTION WIDTH 13.9 % (9.6-15.2)
[2020-07-06] MEDS: CARVEDILOL 3.125 MG TABLET PO SCH ×2 (04:56→18:41)
[2020-07-06] MEDS: ASPIRIN 325 MG TABLET PO SCH (04:56)
[2020-07-06] MEDS: INSULIN REGULAR LOW DOSE QDAY SQ-INSULIN SCH (05:00)
[2020-07-06 05:02] LABS: ALANINE AMINOTRANSFERASE 142 U/L (12-78); ALBUMIN 2.4 g/dL (3.4-5.0); ANION GAP 9 mmol/L (5-15); CHLORIDE 99 mmol/L (98-107); CREATININE 0.71 mg/dL (0.55-1.02)
[2020-07-06 05:04] LABS: ALKALINE PHOSPHATASE 260 U/L (45-117); BILIRUBIN,TOTAL 0.2 mg/dL (0.2-1.0); TOTAL PROTEIN 6.8 g/dL (6.4-8.2)
[2020-07-06] MEDS: INSULIN REGULAR LOW DOSE Q6H X 48HRS SQ-INSULIN SCH ×3 (05:24→17:20)
[2020-07-06] MEDS ORDERED: POTASSIUM CHLORIDE 20 MEQ TAB.ER.PRT PO ONE (06:30)
[2020-07-06 06:59] VITALS: BP 95/56
[2020-07-06] MEDS: OPIUM TINCTURE 1% 10 MG/ML ORAL.SOL PO SCH ×3 (08:13→21:17)
[2020-07-06] MEDS: SODIUM BICARBONATE 650 MG TABLET PO SCH (08:13)
[2020-07-06] MEDS: AMOXICILLIN/CLAV 875-125MG TABLET PO SCH ×2 (11:08→22:40)
[2020-07-06 12:04] VITALS: BP 96/83
[2020-07-06] MEDS ORDERED: FAT EMUL IV SCH (17:00)
[2020-07-06] MEDS ORDERED: SMOF TPN IV SCH (17:00)
[2020-07-06] MEDS ORDERED: AMINO ACID 10% IV SCH (17:00)
[2020-07-06] MEDS ORDERED: [UNRECOGNIZED DRUG - OTHER] IV SCH (17:00)
[2020-07-06] MEDS ORDERED: DEXTROSE 70% IV SCH (17:00)
[2020-07-06 19:28] VITALS: BP 101/75
[2020-07-06] MEDS ORDERED: SULFAMETH./TRIMETHOPRIM DS 800MG/160MG TABLET PO SCH (21:00)
[2020-07-07 01:37] VITALS: BP 112/73
[2020-07-07] MEDS: HYDROmorphone 1 MG/ML, 1ML INJ IV PRN ×5 (01:50→21:08)
[2020-07-07] MEDS: HEPARIN 5,000 UNITS/ML, 1ML SQ SCH ×3 (04:00→20:00)
[2020-07-07] MEDS: INSULIN REGULAR LOW DOSE QDAY SQ-INSULIN SCH (04:55)
[2020-07-07] MEDS: DIPHENHYDRAMINE 50 MG/ML, 1ML IVPush PRN ×3 (05:03→18:29)
[2020-07-07] MEDS: CARVEDILOL 3.125 MG TABLET PO SCH ×2 (06:11→18:02)
[2020-07-07] MEDS: ASPIRIN 325 MG TABLET PO SCH (06:11)
[2020-07-07 06:28] LABS: ALBUMIN 2.7 g/dL (3.4-5.0); CALCIUM 8.7 mg/dL (8.5-10.1); CHLORIDE 104 mmol/L (98-107)
[2020-07-07 06:31] LABS: ALANINE AMINOTRANSFERASE 135 U/L (12-78); ALKALINE PHOSPHATASE 279 U/L (45-117); BILIRUBIN,TOTAL 0.2 mg/dL (0.2-1.0); CREATININE 0.63 mg/dL (0.55-1.02); TOTAL PROTEIN 7.7 g/dL (6.4-8.2)
[2020-07-07 06:34] LABS: ANION GAP 2 mmol/L (5-15)
[2020-07-07] MEDS ORDERED: SODIUM ZIRCONIUM CYCLOSILICATE 10 GM PO ONE (07:00)
[2020-07-07 07:23] VITALS: BP 106/74
[2020-07-07] MEDS ORDERED: INSULIN REGULAR 100 UNITS/ML, 3ML VIAL IVPush ONE (08:30)
[2020-07-07] MEDS ORDERED: DEXTROSE 50%, 50ML SYRINGE IVPush ONE (08:30)
[2020-07-07] MEDS: OPIUM TINCTURE 1% 10 MG/ML ORAL.SOL PO SCH ×3 (09:33→21:09)
[2020-07-07] MEDS ORDERED: SODIUM PHOSPHATE 20 MEQ in SODIUM CHLORIDE 0.9% 250 ML IV SCH (10:00)
[2020-07-07] MEDS: CEFTRIAXONE PMX 2GM/50ML 50 ML IVPB SCH (10:23)
[2020-07-07] MEDS: AMPICILLIN 1 GM in SODIUM CHLORIDE 0.9% 100 ML IV SCH ×3 (11:09→22:49)
[2020-07-07 12:30] VITALS: BP 118/77
[2020-07-07] MEDS ORDERED: [UNRECOGNIZED DRUG - OTHER] IV SCH (16:00)
[2020-07-07] MEDS ORDERED: DEXTROSE 70% IV SCH (16:00)
[2020-07-07] MEDS ORDERED: FAT EMUL IV SCH (16:00)
[2020-07-07] MEDS ORDERED: AMINO ACID 10% IV SCH (16:00)
[2020-07-07] MEDS ORDERED: SMOF TPN IV SCH (16:00)
[2020-07-07] MEDS ORDERED: FILTER 1.2 MICRON FOR TPN/PVN IV PRN (16:00)
[2020-07-07 18:36] VITALS: BP 121/85
[2020-07-08] MEDS: DIPHENHYDRAMINE 50 MG/ML, 1ML IVPush PRN ×4 (00:02→19:50)
[2020-07-08 00:11] VITALS: BP 123/67
[2020-07-08] MEDS: HYDROmorphone 1 MG/ML, 1ML INJ IV PRN ×3 (01:45→16:55)
[2020-07-08] MEDS: HEPARIN 5,000 UNITS/ML, 1ML SQ SCH ×3 (04:00→19:55)
[2020-07-08] MEDS: AMPICILLIN 1 GM in SODIUM CHLORIDE 0.9% 100 ML IV SCH ×4 (04:43→22:40)
[2020-07-08] MEDS: INSULIN REGULAR LOW DOSE QDAY SQ-INSULIN SCH (05:00)
[2020-07-08] MEDS: ASPIRIN 325 MG TABLET PO SCH (05:34)
[2020-07-08] MEDS: CARVEDILOL 3.125 MG TABLET PO SCH ×2 (05:34→18:16)
[2020-07-08 05:55] LABS: BASOPHILS % (AUTO) 1 % (0-1); EOSINOPHILS % (AUTO) 7 % (1-7); LYMPHOCYTES % (AUTO) 17 % (22-44); MEAN CORPUSCULAR HEMOGLOBIN 32.3 pg (27.0-34.8); MONOCYTES % (AUTO) 8 % (2-9); NEUTROPHILS % (AUTO) 68 % (42-75); PLATELET COUNT 310 x10^3/uL (130-400); RED BLOOD COUNT 2.82 x10^6/uL (3.82-5.3); RED CELL DISTRIBUTION WIDTH 13.9 % (9.6-15.2)
[2020-07-08 06:01] LABS: MD NO
[2020-07-08 06:02] LABS: CHLORIDE 111 mmol/L (98-107)
[2020-07-08 06:08] LABS: ANION GAP 6 mmol/L (5-15); CALCIUM 8.8 mg/dL (8.5-10.1); CREATININE 0.51 mg/dL (0.55-1.02)
[2020-07-08 07:15] VITALS: BP 108/73
[2020-07-08] MEDS: CEFTRIAXONE PMX 2GM/50ML 50 ML IVPB SCH (10:00)
[2020-07-08] MEDS: OPIUM TINCTURE 1% 10 MG/ML ORAL.SOL PO SCH ×3 (10:00→21:11)
[2020-07-08 12:51] VITALS: BP 109/75
[2020-07-08] MEDS ORDERED: DEXTROSE 70% IV SCH (16:00)
[2020-07-08] MEDS ORDERED: AMINO ACID 10% IV SCH (16:00)
[2020-07-08] MEDS ORDERED: SMOF TPN IV SCH (16:00)
[2020-07-08] MEDS ORDERED: [UNRECOGNIZED DRUG - OTHER] IV SCH (16:00)
[2020-07-08] MEDS ORDERED: FAT EMUL IV SCH (16:00)
[2020-07-08] MEDS ORDERED: FILTER 1.2 MICRON FOR TPN/PVN IV PRN (16:00)
[2020-07-08 19:25] VITALS: BP 126/81
[2020-07-09 01:12] VITALS: BP 107/73
[2020-07-09] MEDS: DIPHENHYDRAMINE 50 MG/ML, 1ML IVPush PRN ×4 (03:12→22:50)
[2020-07-09] MEDS: HEPARIN 5,000 UNITS/ML, 1ML SQ SCH ×3 (04:00→21:00)
[2020-07-09] MEDS: AMPICILLIN 1 GM in SODIUM CHLORIDE 0.9% 100 ML IV SCH (04:07)
[2020-07-09 05:37] LABS: CHLORIDE 109 mmol/L (98-107)
[2020-07-09] MEDS: CARVEDILOL 3.125 MG TABLET PO SCH ×2 (05:40→17:54)
[2020-07-09] MEDS: ASPIRIN 325 MG TABLET PO SCH (05:40)
[2020-07-09] MEDS: INSULIN REGULAR LOW DOSE QDAY SQ-INSULIN SCH (05:40)
[2020-07-09 05:52] LABS: ANION GAP 5 mmol/L (5-15); CALCIUM 8.4 mg/dL (8.5-10.1); CREATININE 0.54 mg/dL (0.55-1.02)
[2020-07-09] MEDS ORDERED: LINEZOLID PMX 600MG/300ML 300 ML IV SCH (06:30)
[2020-07-09 07:32] VITALS: BP 131/77
[2020-07-09] MEDS: OPIUM TINCTURE 1% 10 MG/ML ORAL.SOL PO SCH ×3 (08:05→21:32)
[2020-07-09] MEDS: CEFTRIAXONE PMX 2GM/50ML 50 ML IVPB SCH (10:00)
[2020-07-09] MEDS ORDERED: CEFT2PIG2 IJ (12:10)
[2020-07-09] MEDS ORDERED: LINE600I14 IJ (12:10)
[2020-07-09 13:14] VITALS: BP 108/54
[2020-07-09] MEDS: LINEZOLID PMX 600MG/300ML 300 ML IV SCH (14:44)
[2020-07-09] MEDS ORDERED: [UNRECOGNIZED DRUG - OTHER] IV SCH (16:00)
[2020-07-09] MEDS ORDERED: FAT EMUL IV SCH (16:00)
[2020-07-09] MEDS ORDERED: AMINO ACID 10% IV SCH (16:00)
[2020-07-09] MEDS ORDERED: DEXTROSE 70% IV SCH (16:00)
[2020-07-09] MEDS ORDERED: SMOF TPN IV SCH (16:00)
[2020-07-09] MEDS: FILTER 1.2 MICRON FOR TPN/PVN IV PRN (16:39)
[2020-07-09 17:56] VITALS: BP 109/77
[2020-07-09 19:27] VITALS: BP 116/80
[2020-07-10 01:12] VITALS: BP 114/75
[2020-07-10] MEDS: HEPARIN 5,000 UNITS/ML, 1ML SQ SCH ×3 (03:59→20:00)
[2020-07-10] MEDS: LINEZOLID PMX 600MG/300ML 300 ML IV SCH ×2 (04:25→15:57)
[2020-07-10] MEDS: DIPHENHYDRAMINE 50 MG/ML, 1ML IVPush PRN ×3 (04:41→18:13)
[2020-07-10] MEDS: INSULIN REGULAR LOW DOSE QDAY SQ-INSULIN SCH (04:57)
[2020-07-10 05:13] LABS: ANION GAP 7 mmol/L (5-15); CHLORIDE 111 mmol/L (98-107)
[2020-07-10 05:14] LABS: CREATININE 0.58 mg/dL (0.55-1.02)
[2020-07-10 05:47] VITALS: BP 99/69
[2020-07-10] MEDS: CARVEDILOL 3.125 MG TABLET PO SCH ×2 (05:47→16:55)
[2020-07-10] MEDS: ASPIRIN 325 MG TABLET PO SCH (05:47)
[2020-07-10 06:54] VITALS: BP 102/68
[2020-07-10] MEDS: CEFTRIAXONE PMX 2GM/50ML 50 ML IVPB SCH (09:57)
[2020-07-10] MEDS: OPIUM TINCTURE 1% 10 MG/ML ORAL.SOL PO SCH ×3 (09:57→21:00)
[2020-07-10 12:30] VITALS: BP 105/72
[2020-07-10] MEDS: HYDROmorphone 1 MG/ML, 1ML INJ IV PRN ×5 (12:54→23:49)
[2020-07-10] MEDS: FILTER 1.2 MICRON FOR TPN/PVN IV PRN (16:46)
[2020-07-10] MEDS ORDERED: AMINO ACID 10% IV SCH (17:00)
[2020-07-10] MEDS ORDERED: DEXTROSE 70% IV SCH (17:00)
[2020-07-10] MEDS ORDERED: FAT EMUL IV SCH (17:00)
[2020-07-10] MEDS ORDERED: [UNRECOGNIZED DRUG - OTHER] IV SCH (17:00)
[2020-07-10] MEDS ORDERED: SMOF TPN IV SCH (17:00)
[2020-07-10 19:35] VITALS: BP 114/75
[2020-07-11] MEDS: DIPHENHYDRAMINE 50 MG/ML, 1ML IVPush PRN ×4 (00:37→22:26)
[2020-07-11 01:50] VITALS: BP 110/73
[2020-07-11] MEDS: HYDROmorphone 1 MG/ML, 1ML INJ IV PRN ×6 (03:29→23:24)
[2020-07-11] MEDS: HEPARIN 5,000 UNITS/ML, 1ML SQ SCH ×3 (04:00→20:00)
[2020-07-11 04:44] LABS: BASOPHILS % (AUTO) 1 % (0-1); EOSINOPHILS % (AUTO) 4 % (1-7); LYMPHOCYTES % (AUTO) 14 % (22-44); MEAN CORPUSCULAR HEMOGLOBIN 31.9 pg (27.0-34.8); MEAN CORPUSCULAR HGB CONC 34.1 g/dL (32.4-35.8); MEAN PLATELET VOLUME 8.5 fL (7.4-10.4); MONOCYTES % (AUTO) 7 % (2-9); NEUTROPHILS % (AUTO) 75 % (42-75); PLATELET COUNT 307 x10^3/uL (130-400); RED BLOOD COUNT 2.95 x10^6/uL (3.82-5.3); RED CELL DISTRIBUTION WIDTH 13.8 % (9.6-15.2)
[2020-07-11 04:46] LABS: MD NO
[2020-07-11] MEDS: LINEZOLID PMX 600MG/300ML 300 ML IV SCH ×2 (04:47→15:29)
[2020-07-11 04:55] LABS: ANION GAP 4 mmol/L (5-15); CALCIUM 8.2 mg/dL (8.5-10.1); CHLORIDE 108 mmol/L (98-107)
[2020-07-11] MEDS: INSULIN REGULAR LOW DOSE QDAY SQ-INSULIN SCH (05:00)
[2020-07-11] MEDS: ASPIRIN 325 MG TABLET PO SCH (05:40)
[2020-07-11] MEDS: CARVEDILOL 3.125 MG TABLET PO SCH ×2 (05:41→17:43)
[2020-07-11 08:40] VITALS: BP 93/55
[2020-07-11] MEDS ORDERED: OMNIPAQUE 350 MG/ML, 100ML BOTTLE ONE (10:00)
[2020-07-11] MEDS: OPIUM TINCTURE 1% 10 MG/ML ORAL.SOL PO SCH ×3 (10:40→20:53)
[2020-07-11] MEDS: CEFTRIAXONE PMX 2GM/50ML 50 ML IVPB SCH (10:40)
[2020-07-11 15:58] VITALS: BP 113/78
[2020-07-11] MEDS ORDERED: DEXTROSE 70% IV SCH (17:00)
[2020-07-11] MEDS ORDERED: SMOF TPN IV SCH (17:00)
[2020-07-11] MEDS ORDERED: [UNRECOGNIZED DRUG - OTHER] IV SCH (17:00)
[2020-07-11] MEDS ORDERED: FAT EMUL IV SCH (17:00)
[2020-07-11] MEDS ORDERED: AMINO ACID 10% IV SCH (17:00)
[2020-07-11] MEDS: FILTER 1.2 MICRON FOR TPN/PVN IV PRN (17:43)
[2020-07-11 19:00] VITALS: BP 105/71
[2020-07-12 00:54] VITALS: BP 109/61
[2020-07-12] MEDS: HEPARIN 5,000 UNITS/ML, 1ML SQ SCH ×3 (04:00→20:00)
[2020-07-12] MEDS: HYDROmorphone 1 MG/ML, 1ML INJ IV PRN ×5 (04:11→21:19)
[2020-07-12] MEDS: DIPHENHYDRAMINE 50 MG/ML, 1ML IVPush PRN ×4 (04:35→23:31)
[2020-07-12] MEDS: LINEZOLID PMX 600MG/300ML 300 ML IV SCH ×2 (04:36→14:55)
[2020-07-12] MEDS: INSULIN REGULAR LOW DOSE QDAY SQ-INSULIN SCH (05:00)
[2020-07-12] MEDS: ASPIRIN 325 MG TABLET PO SCH (05:47)
[2020-07-12] MEDS: CARVEDILOL 3.125 MG TABLET PO SCH ×2 (05:47→17:06)
[2020-07-12 06:11] LABS: ANION GAP 5 mmol/L (5-15); CALCIUM 8.4 mg/dL (8.5-10.1); CHLORIDE 105 mmol/L (98-107); CREATININE 0.55 mg/dL (0.55-1.02)
[2020-07-12 06:15] LABS: PREALBUMIN 30.6 mg/dL (20.0-40.0)
[2020-07-12 07:12] VITALS: BP 102/69
[2020-07-12] MEDS: OPIUM TINCTURE 1% 10 MG/ML ORAL.SOL PO SCH ×3 (09:39→21:16)
[2020-07-12] MEDS: CEFTRIAXONE PMX 2GM/50ML 50 ML IVPB SCH (10:42)
[2020-07-12 12:40] VITALS: BP 119/77
[2020-07-12] MEDS ORDERED: FAT EMUL IV SCH ×2 (17:30)
[2020-07-12] MEDS ORDERED: SMOF TPN IV SCH ×2 (17:30)
[2020-07-12] MEDS ORDERED: DEXTROSE 70% IV SCH ×2 (17:30)
[2020-07-12] MEDS ORDERED: [UNRECOGNIZED DRUG - OTHER] IV SCH (17:30)
[2020-07-12] MEDS ORDERED: AMINO ACID 15% IV SCH (17:30)
[2020-07-12] MEDS ORDERED: [UNRECOGNIZED DRUG - OTHER] IV SCH (17:30)
[2020-07-12] MEDS ORDERED: AMINO ACID 10% IV SCH (17:30)
[2020-07-12 19:02] VITALS: BP 106/72
[2020-07-13] MEDS: HYDROmorphone 1 MG/ML, 1ML INJ IV PRN ×5 (00:31→16:27)
[2020-07-13 02:22] VITALS: BP 100/66
[2020-07-13] MEDS: LINEZOLID PMX 600MG/300ML 300 ML IV SCH ×2 (03:50→14:36)
[2020-07-13] MEDS: HEPARIN 5,000 UNITS/ML, 1ML SQ SCH ×2 (03:56→11:29)
[2020-07-13] MEDS: ASPIRIN 325 MG TABLET PO SCH (05:35)
[2020-07-13] MEDS: DIPHENHYDRAMINE 50 MG/ML, 1ML IVPush PRN ×2 (05:35→11:54)
[2020-07-13] MEDS: INSULIN REGULAR LOW DOSE QDAY SQ-INSULIN SCH (05:35)
[2020-07-13] MEDS: CARVEDILOL 3.125 MG TABLET PO SCH (05:35)
[2020-07-13 07:04] VITALS: BP 88/56
[2020-07-13] MEDS: OPIUM TINCTURE 1% 10 MG/ML ORAL.SOL PO SCH ×2 (09:06→16:11)
[2020-07-13] MEDS: CEFTRIAXONE PMX 2GM/50ML 50 ML IVPB SCH (09:32)
[2020-07-13 14:15] VITALS: BP 115/68
== END 2020-07-13 17:37 | disposition home health service (06) | DRG 690 ==
LOC: ED 16:46 → EDIP 18:12 → 4NW 19:27
PROVIDERS: ADMIT Internal Medicine; ATTEND Hospitalist
DX: N12 Tubulo-interstitial nephritis, not specified as acute or chronic (principal); K56.609 Unspecified intestinal obstruction, unspecified as to partial versus complete obstruction; Z16.11 Resistance to penicillins; N82.8 Other female genital tract fistulae; E87.2 Acidosis; N89.8 Other specified noninflammatory disorders of vagina; N73.6 Female pelvic peritoneal adhesions (postinfective); K31.84 Gastroparesis; G89.29 Other chronic pain; D64.9 Anemia, unspecified; C53.9 Malignant neoplasm of cervix uteri, unspecified; B96.1 Klebsiella pneumoniae [K. pneumoniae] as the cause of diseases classified elsewhere; Z92.21 Personal history of antineoplastic chemotherapy; Z90.710 Acquired absence of both cervix and uterus; Z83.3 Family history of diabetes mellitus; Z85.41 Personal history of malignant neoplasm of cervix uteri; Z93.3 Colostomy status
CPT/HCPCS: 36415; 96361; 96374; 96375; 99285; J1955; J3475; 74177; 80048; 80053; 80061; 81001; 82962; 83605; 83690; 83735; 84100; 84132; 84134; 84478; 85014; 85018; 85025; 87040; 87077; 87086; 87186; G0378; J0290; J0610; J0696; J1170; J1644; J1815; J1956; J2020; J2405; J3370; J3480; Q9967; J1200; J7030; J7040; J7050

== ENCOUNTER 2020-07-16 11:05 | Inpatient (IN) | payer MEDICAID ==
[~2020-07-16] VITALS: Ht 144.8 cm; Wt 43.7 kg
[~2020-07-16 11:05] MED LIST changes: +Benadryl IV; +CEFT2PIG2 IJ; +LINE600I14 IJ; +SULF-23 PO; -SULF1TAB24 PO
[2020-07-16] MEDS ORDERED: SODIUM CHLORIDE FLUSH 10ML SYR IVF ONE (11:30)
[2020-07-16] MEDS ORDERED: SODIUM CHLORIDE 0.9% 1,000ML IVBOLUS ONE (11:30)
--- NOTE | 2020-07-16 11:42 | NUR ---
PT C/O EPIGASTRIC PAIN WITH N/V THAT WORSENED THIS AM. PT HAS EXTENSIVE ABD HX AND HAS RIGHT/LEFT NEPHROSTOMY TUBES, JUANITO BLADDER TUBE, AND COLOSTOMY TUBE IN PLACE. PT PAIN 01/09. URINE SAMPLES COLLECTED FROM RIGHT/LEFT NEPHROSTOMY AND NEOBLADDER.
[2020-07-16 12:09] LABS: BASOPHILS % (AUTO) 1 % (0-1); EOSINOPHILS % (AUTO) 2 % (1-7); LYMPHOCYTES % (AUTO) 16 % (22-44); MEAN CORPUSCULAR HEMOGLOBIN 31.9 pg (27.0-34.8); MEAN CORPUSCULAR HGB CONC 33.9 g/dL (32.4-35.8); MEAN PLATELET VOLUME 8.4 fL (7.4-10.4); MONOCYTES % (AUTO) 4 % (2-9); NEUTROPHILS % (AUTO) 78 % (42-75); PLATELET COUNT 270 x10^3/uL (130-400); RED BLOOD COUNT 3.47 x10^6/uL (3.82-5.3); RED CELL DISTRIBUTION WIDTH 14.1 % (9.6-15.2)
[2020-07-16] MEDS ORDERED: HYDROmorphone 1 MG/ML, 1ML INJ ONE ×2 (12:13→13:35)
[2020-07-16] MEDS ORDERED: ONDANSETRON 2MG/ML, 2ML ONE (12:13)
[2020-07-16 12:16] LABS: MD NO
[2020-07-16 12:19] LABS: ALANINE AMINOTRANSFERASE 195 U/L (12-78); ALBUMIN 2.9 g/dL (3.4-5.0); ANION GAP 5 mmol/L (5-15); CALCIUM 8.7 mg/dL (8.5-10.1); CHLORIDE 106 mmol/L (98-107); CREATININE 0.71 mg/dL (0.55-1.02)
[2020-07-16 12:21] LABS: ALKALINE PHOSPHATASE 348 U/L (45-117); BILIRUBIN,TOTAL 0.3 mg/dL (0.2-1.0); TOTAL PROTEIN 8.2 g/dL (6.4-8.2)
--- NOTE | 2020-07-16 12:23 | NUR ---
BREAK RN: MEDS ADMIN PER MAY. PT RESTING BETTER AFTER PAIN MEDS. FAMILY AT BEDSIDE. PT CONNECTED TO MONITORING. PT CONNECTED TO OXYGEN FOR SAFETY AFTER PAIN MEDS. CALL LIGHT IN REACH.
[2020-07-16] MEDS ORDERED: HYDROmorphone 1 MG/ML, 1ML INJ IV ONE ×2 (12:30→14:00)
[2020-07-16] MEDS ORDERED: ONDANSETRON 2MG/ML, 2ML IVPush ONE (12:30)
--- NOTE | 2020-07-16 12:41 | NUR ---
BREAK RN: REPORT GIVEN TO WANDA PRIMARY RN.
[2020-07-16 12:49] LABS: MICROSCOPIC INDICATED
[2020-07-16 12:50] LABS: MICROSCOPIC INDICATED
[2020-07-16] MEDS ORDERED: ONDANSETRON 2MG/ML, 2ML IVPush PRN (14:00)
[2020-07-16] MEDS ORDERED: SODIUM CHLORIDE FLUSH 10ML SYR IVF PRN (14:00)
[2020-07-16] MEDS ORDERED: HYDROmorphone 1 MG/ML, 1ML INJ IVPush PRN (14:00)
[2020-07-16] MEDS ORDERED: CEFTRIAXONE IV SCH (14:17)
--- NOTE | 2020-07-16 14:17 | NUR ---
PHONE REPORT TO MARIANA CLARK
[2020-07-16] MEDS ORDERED: LACTATED RINGERS 1,000 ML IV SCH (14:30)
[2020-07-16] MEDS ORDERED: TPN PER PHARMACY MC PRN (14:30)
[2020-07-16] MEDS ORDERED: ONDANSETRON ODT 4 MG PO PRN (14:30)
[2020-07-16] MEDS: HEPARIN 5,000 UNITS/ML, 1ML SQ SCH ×2 (14:30→23:30)
[2020-07-16] MEDS ORDERED: PROMETHAZINE 25 MG/ML, 1ML IM PRN (14:30)
[2020-07-16] MEDS ORDERED: ACETAMINOPHEN 325 MG TABLET PO PRN (14:30)
[2020-07-16] MEDS ORDERED: LORazepam 0.5MG TABLET PO PRN (14:30)
[2020-07-16] MEDS ORDERED: DEXTROSE 50%, 50ML SYRINGE IVPush PRN (15:00)
[2020-07-16] MEDS: DIPHENHYDRAMINE 50 MG/ML, 1ML IVPush PRN ×2 (15:29→21:31)
[2020-07-16] MEDS: CEFTRIAXONE 2 GM in DEXTROSE 5% 50 ML IVPB SCH (15:44)
[2020-07-16 15:47] VITALS: BP 118/84
[2020-07-16] MEDS: HYDROmorphone 2 MG/ML, 1ML IVPush PRN ×3 (16:22→21:32)
[2020-07-16] MEDS: OPIUM TINCTURE 1% 10 MG/ML ORAL.SOL PO SCH ×2 (16:22→21:17)
[2020-07-16] MEDS: CARVEDILOL 3.125 MG TABLET PO SCH (16:23)
[2020-07-16] MEDS: LINEZOLID PMX 600MG/300ML 300 ML IV SCH (16:42)
[2020-07-16] MEDS ORDERED: DEXTROSE 10% 500 ML IV PRN (17:00)
[2020-07-16] MEDS ORDERED: DEXTROSE 70% IV SCH (17:00)
[2020-07-16] MEDS ORDERED: AMINO ACID 15% IV SCH (17:00)
[2020-07-16] MEDS ORDERED: STERILE WATER IV SCH (17:00)
[2020-07-16] MEDS ORDERED: [UNRECOGNIZED DRUG - OTHER] IV SCH (17:00)
[2020-07-16] MEDS: FILTER 1.2 MICRON FOR TPN/PVN IV PRN (18:13)
[2020-07-16 18:34] VITALS: BP 146/93
[2020-07-16] MEDS: FAMOTIDINE 20 MG TABLET PO SCH (21:17)
[2020-07-16] MEDS ORDERED: KETOROLAC 30 MG/1 ML IM PRN (23:00)
[2020-07-17] VITALS (7 sets, daily range): BP systolic 88–126; BP diastolic 56–84
[2020-07-17] MEDS: HYDROmorphone 2 MG/ML, 1ML IVPush PRN ×8 (00:55→23:52)
[2020-07-17] MEDS: DIPHENHYDRAMINE 50 MG/ML, 1ML IVPush PRN ×3 (03:42→17:04)
[2020-07-17] MEDS: LINEZOLID PMX 600MG/300ML 300 ML IV SCH ×2 (04:57→16:47)
[2020-07-17] MEDS: ASPIRIN 325 MG TABLET PO SCH (06:13)
[2020-07-17] MEDS: CARVEDILOL 3.125 MG TABLET PO SCH ×2 (06:13→16:53)
[2020-07-17] MEDS: KETOROLAC 30 MG/1 ML IVPush PRN ×3 (06:17→18:45)
[2020-07-17] MEDS: HEPARIN 5,000 UNITS/ML, 1ML SQ SCH (06:19)
[2020-07-17 06:24] LABS: BASOPHILS % (AUTO) 1 % (0-1); EOSINOPHILS % (AUTO) 4 % (1-7); LYMPHOCYTES % (AUTO) 15 % (22-44); MEAN CORPUSCULAR HEMOGLOBIN 32.7 pg (27.0-34.8); MEAN CORPUSCULAR HGB CONC 33.9 g/dL (32.4-35.8); MEAN PLATELET VOLUME 8.3 fL (7.4-10.4); MONOCYTES % (AUTO) 5 % (2-9); NEUTROPHILS % (AUTO) 76 % (42-75); PLATELET COUNT 226 x10^3/uL (130-400); RED BLOOD COUNT 2.76 x10^6/uL (3.82-5.3); RED CELL DISTRIBUTION WIDTH 14.3 % (9.6-15.2)
[2020-07-17 06:25] LABS: MD NO
[2020-07-17 06:37] LABS: ALANINE AMINOTRANSFERASE 117 U/L (12-78); ALBUMIN 2.3 g/dL (3.4-5.0); ANION GAP 3 mmol/L (5-15); CALCIUM 7.7 mg/dL (8.5-10.1); CHLORIDE 108 mmol/L (98-107); CREATININE 0.53 mg/dL (0.55-1.02); TRIGLYCERIDES 97 mg/dL (50-200)
[2020-07-17 06:41] LABS: ALKALINE PHOSPHATASE 221 U/L (45-117); BILIRUBIN,TOTAL 0.3 mg/dL (0.2-1.0); PREALBUMIN 25.5 mg/dL (20.0-40.0); TOTAL PROTEIN 6.3 g/dL (6.4-8.2)
[2020-07-17] MEDS: FAMOTIDINE 20 MG TABLET PO SCH ×2 (07:48→21:43)
[2020-07-17] MEDS: OPIUM TINCTURE 1% 10 MG/ML ORAL.SOL PO SCH ×3 (07:49→21:43)
[2020-07-17] MEDS ORDERED: LORazepam 0.5MG TABLET PO PRN (14:30)
[2020-07-17] MEDS: CEFTRIAXONE 2 GM in DEXTROSE 5% 50 ML IVPB SCH (15:39)
[2020-07-17] MEDS: LACTATED RINGERS 1,000 ML IV SCH (16:00)
[2020-07-17] MEDS: FILTER 1.2 MICRON FOR TPN/PVN IV PRN (16:48)
[2020-07-17] MEDS ORDERED: [UNRECOGNIZED DRUG - OTHER] IV SCH (17:00)
[2020-07-17] MEDS ORDERED: AMINO ACID 15% IV SCH (17:00)
[2020-07-17] MEDS ORDERED: STERILE WATER IV SCH (17:00)
[2020-07-17] MEDS ORDERED: DEXTROSE 70% IV SCH (17:00)
[2020-07-18 00:36] VITALS: BP 111/75
[2020-07-18] MEDS: DIPHENHYDRAMINE 50 MG/ML, 1ML IVPush PRN ×4 (02:34→20:52)
[2020-07-18] MEDS: HYDROmorphone 2 MG/ML, 1ML IVPush PRN ×7 (04:16→23:29)
[2020-07-18] MEDS: LACTATED RINGERS 1,000 ML IV SCH ×2 (04:51→18:12)
[2020-07-18 05:03] LABS: BASOPHILS % (AUTO) 0 % (0-1); EOSINOPHILS % (AUTO) 6 % (1-7); LYMPHOCYTES % (AUTO) 10 % (22-44); MEAN CORPUSCULAR HEMOGLOBIN 32.4 pg (27.0-34.8); MEAN CORPUSCULAR HGB CONC 33.8 g/dL (32.4-35.8); MEAN PLATELET VOLUME 8.3 fL (7.4-10.4); MONOCYTES % (AUTO) 6 % (2-9); NEUTROPHILS % (AUTO) 78 % (42-75); PLATELET COUNT 184 x10^3/uL (130-400); RED CELL DISTRIBUTION WIDTH 13.7 % (9.6-15.2)
[2020-07-18 05:06] LABS: ANION GAP 3 mmol/L (5-15); CHLORIDE 105 mmol/L (98-107); CREATININE 0.47 mg/dL (0.55-1.02)
[2020-07-18 05:13] LABS: MD NO
[2020-07-18] MEDS: KETOROLAC 30 MG/1 ML IVPush PRN ×3 (05:50→19:28)
[2020-07-18] MEDS: CARVEDILOL 3.125 MG TABLET PO SCH ×2 (05:50→17:22)
[2020-07-18] MEDS: ASPIRIN 325 MG TABLET PO SCH (05:50)
[2020-07-18 07:07] VITALS: BP 113/84
[2020-07-18] MEDS: FAMOTIDINE 20 MG TABLET PO SCH (08:28)
[2020-07-18] MEDS: OPIUM TINCTURE 1% 10 MG/ML ORAL.SOL PO SCH ×3 (08:28→20:52)
[2020-07-18 13:33] VITALS: BP 111/67
[2020-07-18] MEDS ORDERED: STERILE WATER IV SCH ×2 (17:00)
[2020-07-18] MEDS ORDERED: [UNRECOGNIZED DRUG - OTHER] IV SCH (17:00)
[2020-07-18] MEDS ORDERED: AMINO ACID 15% IV SCH ×2 (17:00)
[2020-07-18] MEDS ORDERED: [UNRECOGNIZED DRUG - OTHER] IV SCH (17:00)
[2020-07-18] MEDS ORDERED: DEXTROSE 70% IV SCH ×2 (17:00)
[2020-07-18 19:06] VITALS: BP 115/80
[2020-07-19 01:00] VITALS: BP 104/68
[2020-07-19] MEDS: KETOROLAC 30 MG/1 ML IVPush PRN ×4 (02:22→20:51)
[2020-07-19] MEDS: HYDROmorphone 2 MG/ML, 1ML IVPush PRN ×7 (03:09→21:37)
[2020-07-19] MEDS: DIPHENHYDRAMINE 50 MG/ML, 1ML IVPush PRN ×4 (03:46→21:37)
[2020-07-19] MEDS: LACTATED RINGERS 1,000 ML IV SCH ×2 (05:15→21:20)
[2020-07-19] MEDS: CARVEDILOL 3.125 MG TABLET PO SCH ×2 (05:34→17:49)
[2020-07-19] MEDS: ASPIRIN 325 MG TABLET PO SCH (05:34)
[2020-07-19 05:46] LABS: BASOPHILS % (AUTO) 1 % (0-1); EOSINOPHILS % (AUTO) 7 % (1-7); LYMPHOCYTES % (AUTO) 19 % (22-44); MEAN CORPUSCULAR HGB CONC 34.8 g/dL (32.4-35.8); MEAN PLATELET VOLUME 8.5 fL (7.4-10.4); MONOCYTES % (AUTO) 7 % (2-9); NEUTROPHILS % (AUTO) 66 % (42-75); PLATELET COUNT 161 x10^3/uL (130-400); RED BLOOD COUNT 2.38 x10^6/uL (3.82-5.3); RED CELL DISTRIBUTION WIDTH 13.4 % (9.6-15.2)
[2020-07-19 05:48] LABS: MD NO
[2020-07-19 05:51] LABS: CHLORIDE 104 mmol/L (98-107)
[2020-07-19 06:01] LABS: ALANINE AMINOTRANSFERASE 93 U/L (12-78); ALBUMIN 2.3 g/dL (3.4-5.0); ALKALINE PHOSPHATASE 242 U/L (45-117); ANION GAP 3 mmol/L (5-15); BILIRUBIN,TOTAL 0.3 mg/dL (0.2-1.0); CALCIUM 8.1 mg/dL (8.5-10.1); CREATININE 0.46 mg/dL (0.55-1.02); TOTAL PROTEIN 6.3 g/dL (6.4-8.2); TRIGLYCERIDES 109 mg/dL (50-200)
[2020-07-19 06:52] VITALS: BP 122/70
[2020-07-19] MEDS: OPIUM TINCTURE 1% 10 MG/ML ORAL.SOL PO SCH ×3 (08:31→22:04)
[2020-07-19 12:42] VITALS: BP 123/82
[2020-07-19] MEDS: FILTER 1.2 MICRON FOR TPN/PVN IV PRN (16:29)
[2020-07-19] MEDS ORDERED: AMINO ACID 15% IV SCH (17:00)
[2020-07-19] MEDS ORDERED: [UNRECOGNIZED DRUG - OTHER] IV SCH (17:00)
[2020-07-19] MEDS ORDERED: DEXTROSE 70% IV SCH (17:00)
[2020-07-19 18:41] VITALS: BP 122/78
[2020-07-20 00:41] VITALS: BP 107/54
[2020-07-20] MEDS: HYDROmorphone 2 MG/ML, 1ML IVPush PRN ×8 (00:47→21:39)
[2020-07-20] MEDS: KETOROLAC 30 MG/1 ML IVPush PRN ×4 (02:53→21:08)
[2020-07-20] MEDS: DIPHENHYDRAMINE 50 MG/ML, 1ML IVPush PRN ×4 (03:35→21:39)
[2020-07-20] MEDS: LACTATED RINGERS 1,000 ML IV SCH ×2 (04:56→07:49)
[2020-07-20 05:13] LABS: BASOPHILS % (AUTO) 1 % (0-1); EOSINOPHILS % (AUTO) 7 % (1-7); LYMPHOCYTES % (AUTO) 16 % (22-44); MEAN CORPUSCULAR HEMOGLOBIN 32.9 pg (27.0-34.8); MEAN CORPUSCULAR HGB CONC 34.6 g/dL (32.4-35.8); MEAN PLATELET VOLUME 8.6 fL (7.4-10.4); MONOCYTES % (AUTO) 8 % (2-9); NEUTROPHILS % (AUTO) 69 % (42-75); PLATELET COUNT 150 x10^3/uL (130-400); RED BLOOD COUNT 2.37 x10^6/uL (3.82-5.3); RED CELL DISTRIBUTION WIDTH 13.5 % (9.6-15.2)
[2020-07-20 05:16] LABS: MD NO
[2020-07-20 05:19] LABS: ANION GAP 3 mmol/L (5-15); CALCIUM 8.1 mg/dL (8.5-10.1); CHLORIDE 104 mmol/L (98-107); CREATININE 0.42 mg/dL (0.55-1.02)
[2020-07-20] MEDS: CARVEDILOL 3.125 MG TABLET PO SCH ×2 (06:26→18:24)
[2020-07-20] MEDS: ASPIRIN 325 MG TABLET PO SCH (06:26)
[2020-07-20 07:37] VITALS: BP 114/76
[2020-07-20] MEDS: OPIUM TINCTURE 1% 10 MG/ML ORAL.SOL PO SCH ×3 (08:57→21:08)
[2020-07-20 13:25] VITALS: BP 123/81
[2020-07-20] MEDS ORDERED: AMINO ACID 15% IV SCH (17:00)
[2020-07-20] MEDS ORDERED: DEXTROSE 70% IV SCH (17:00)
[2020-07-20] MEDS ORDERED: [UNRECOGNIZED DRUG - OTHER] IV SCH (17:00)
[2020-07-20] MEDS ORDERED: STERILE WATER IV SCH (17:00)
[2020-07-20] MEDS: FILTER 1.2 MICRON FOR TPN/PVN IV PRN (17:04)
[2020-07-20 18:41] VITALS: BP 121/82
[2020-07-21] MEDS: HYDROmorphone 2 MG/ML, 1ML IVPush PRN ×8 (00:38→23:45)
[2020-07-21 01:07] VITALS: BP 100/73
[2020-07-21] MEDS: KETOROLAC 30 MG/1 ML IVPush PRN ×2 (03:19→09:46)
[2020-07-21] MEDS: DIPHENHYDRAMINE 50 MG/ML, 1ML IVPush PRN ×4 (03:42→21:55)
[2020-07-21 05:14] LABS: BASOPHILS % (AUTO) 1 % (0-1); EOSINOPHILS % (AUTO) 6 % (1-7); LYMPHOCYTES % (AUTO) 19 % (22-44); MEAN CORPUSCULAR HEMOGLOBIN 32.3 pg (27.0-34.8); MEAN CORPUSCULAR HGB CONC 34.1 g/dL (32.4-35.8); MEAN PLATELET VOLUME 8.3 fL (7.4-10.4); MONOCYTES % (AUTO) 11 % (2-9); NEUTROPHILS % (AUTO) 63 % (42-75); PLATELET COUNT 172 x10^3/uL (130-400); RED BLOOD COUNT 2.36 x10^6/uL (3.82-5.3); RED CELL DISTRIBUTION WIDTH 13.5 % (9.6-15.2)
[2020-07-21 05:27] LABS: ANION GAP 3 mmol/L (5-15); CALCIUM 8.1 mg/dL (8.5-10.1); CHLORIDE 104 mmol/L (98-107); CREATININE 0.42 mg/dL (0.55-1.02)
[2020-07-21 05:39] LABS: MD NO
[2020-07-21] MEDS: CARVEDILOL 3.125 MG TABLET PO SCH ×2 (05:42→17:58)
[2020-07-21] MEDS: ASPIRIN 325 MG TABLET PO SCH (05:42)
[2020-07-21 07:24] VITALS: BP 119/81
[2020-07-21] MEDS: OPIUM TINCTURE 1% 10 MG/ML ORAL.SOL PO SCH ×3 (09:46→20:46)
[2020-07-21 13:19] VITALS: BP 125/83
[2020-07-21] MEDS ORDERED: FISH OIL IV SCH (16:00)
[2020-07-21] MEDS ORDERED: MCT IV SCH (16:00)
[2020-07-21] MEDS ORDERED: DEXTROSE 70% IV SCH (16:00)
[2020-07-21] MEDS ORDERED: OLIV IV SCH (16:00)
[2020-07-21] MEDS ORDERED: FILTER 1.2 MICRON FOR TPN/PVN IV PRN (16:00)
[2020-07-21] MEDS ORDERED: [UNRECOGNIZED DRUG - OTHER] IV SCH (16:00)
[2020-07-21] MEDS ORDERED: FAT EMUL IV SCH (16:00)
[2020-07-21] MEDS ORDERED: AMINO ACIDS 10% IV SCH (16:00)
[2020-07-21] MEDS ORDERED: SOY IV SCH (16:00)
[2020-07-21 19:24] VITALS: BP 122/78
[2020-07-21] MEDS ORDERED: OMNIPAQUE 350 MG/ML, 150 ML BOTTLE ONE (20:18)
[2020-07-21] MEDS: LACTATED RINGERS 1,000 ML IV SCH (21:00)
[2020-07-22 00:02] VITALS: BP 119/75
[2020-07-22] MEDS: HYDROmorphone 2 MG/ML, 1ML IVPush PRN ×7 (03:34→23:24)
[2020-07-22] MEDS: DIPHENHYDRAMINE 50 MG/ML, 1ML IVPush PRN ×4 (04:00→22:13)
[2020-07-22] MEDS: CARVEDILOL 3.125 MG TABLET PO SCH ×2 (06:18→18:12)
[2020-07-22] MEDS: ASPIRIN 325 MG TABLET PO SCH (06:18)
[2020-07-22 06:19] VITALS: BP 103/67
[2020-07-22 06:25] LABS: BASOPHILS % (AUTO) 1 % (0-1); EOSINOPHILS % (AUTO) 6 % (1-7); LYMPHOCYTES % (AUTO) 16 % (22-44); MEAN CORPUSCULAR HGB CONC 34.9 g/dL (32.4-35.8); MEAN PLATELET VOLUME 8.1 fL (7.4-10.4); MONOCYTES % (AUTO) 12 % (2-9); NEUTROPHILS % (AUTO) 66 % (42-75); PLATELET COUNT 206 x10^3/uL (130-400); RED BLOOD COUNT 2.31 x10^6/uL (3.82-5.3); RED CELL DISTRIBUTION WIDTH 13.6 % (9.6-15.2)
[2020-07-22 06:28] LABS: MD NO
[2020-07-22 06:30] LABS: ANION GAP 5 mmol/L (5-15); CALCIUM 8.4 mg/dL (8.5-10.1); CHLORIDE 106 mmol/L (98-107)
[2020-07-22] MEDS: OPIUM TINCTURE 1% 10 MG/ML ORAL.SOL PO SCH ×3 (09:27→22:13)
[2020-07-22] MEDS: LACTATED RINGERS 1,000 ML IV SCH (10:37)
[2020-07-22 12:27] VITALS: BP 121/79
[2020-07-22 15:23] LABS: ANA SCREEN POSITIVE (Negative); ANTI-NUCLEAR ANTIBODY PATTERN SPECKLED
[2020-07-22] MEDS ORDERED: MCT IV SCH (17:00)
[2020-07-22] MEDS ORDERED: AMINO ACIDS 10% IV SCH (17:00)
[2020-07-22] MEDS ORDERED: [UNRECOGNIZED DRUG - OTHER] IV SCH (17:00)
[2020-07-22] MEDS ORDERED: FISH OIL IV SCH (17:00)
[2020-07-22] MEDS ORDERED: OLIV IV SCH (17:00)
[2020-07-22] MEDS ORDERED: FILTER 1.2 MICRON FOR TPN/PVN IV PRN (17:00)
[2020-07-22] MEDS ORDERED: DEXTROSE 70% IV SCH (17:00)
[2020-07-22] MEDS ORDERED: FAT EMUL IV SCH (17:00)
[2020-07-22] MEDS ORDERED: SOY IV SCH (17:00)
[2020-07-22 19:00] VITALS: BP 121/77
[2020-07-23 00:51] VITALS: BP 110/73
[2020-07-23] MEDS: DIPHENHYDRAMINE 50 MG/ML, 1ML IVPush PRN ×4 (04:14→23:58)
[2020-07-23] MEDS ORDERED: HYDROmorphone 1 MG/ML, 1ML INJ ONE (05:19)
[2020-07-23] MEDS: ASPIRIN 325 MG TABLET PO SCH (05:25)
[2020-07-23] MEDS: CARVEDILOL 3.125 MG TABLET PO SCH ×2 (05:25→17:58)
[2020-07-23] MEDS: HYDROmorphone 2 MG/ML, 1ML IVPush PRN ×6 (05:26→23:58)
[2020-07-23 06:40] LABS: BASOPHILS % (AUTO) 1 % (0-1); EOSINOPHILS % (AUTO) 5 % (1-7); LYMPHOCYTES % (AUTO) 16 % (22-44); MEAN CORPUSCULAR HEMOGLOBIN 31.7 pg (27.0-34.8); MEAN CORPUSCULAR HGB CONC 33.3 g/dL (32.4-35.8); MEAN PLATELET VOLUME 8.1 fL (7.4-10.4); MONOCYTES % (AUTO) 11 % (2-9); NEUTROPHILS % (AUTO) 68 % (42-75); PLATELET COUNT 229 x10^3/uL (130-400); RED BLOOD COUNT 2.34 x10^6/uL (3.82-5.3); RED CELL DISTRIBUTION WIDTH 13.3 % (9.6-15.2)
[2020-07-23 06:42] LABS: MD NO
[2020-07-23 06:51] LABS: ANION GAP 5 mmol/L (5-15); CALCIUM 8.3 mg/dL (8.5-10.1); CHLORIDE 107 mmol/L (98-107); CREATININE 0.67 mg/dL (0.55-1.02); TRIGLYCERIDES 179 mg/dL (50-200)
[2020-07-23 06:52] VITALS: BP 101/67
[2020-07-23] MEDS: OPIUM TINCTURE 1% 10 MG/ML ORAL.SOL PO SCH ×3 (09:00→20:55)
[2020-07-23] MEDS: LACTATED RINGERS 1,000 ML IV SCH (11:00)
[2020-07-23 13:54] VITALS: BP 111/75
[2020-07-23] MEDS ORDERED: FISH OIL IV SCH (17:00)
[2020-07-23] MEDS ORDERED: DEXTROSE 70% IV SCH (17:00)
[2020-07-23] MEDS ORDERED: FILTER 1.2 MICRON FOR TPN/PVN IV PRN (17:00)
[2020-07-23] MEDS ORDERED: [UNRECOGNIZED DRUG - OTHER] IV SCH (17:00)
[2020-07-23] MEDS ORDERED: SOY IV SCH (17:00)
[2020-07-23] MEDS ORDERED: AMINO ACIDS 10% IV SCH (17:00)
[2020-07-23] MEDS ORDERED: OLIV IV SCH (17:00)
[2020-07-23] MEDS ORDERED: FAT EMUL IV SCH (17:00)
[2020-07-23] MEDS ORDERED: MCT IV SCH (17:00)
[2020-07-23 19:23] VITALS: BP 108/74
[2020-07-24 00:02] VITALS: BP 129/84
[2020-07-24] MEDS: HYDROmorphone 2 MG/ML, 1ML IVPush PRN ×6 (03:18→21:26)
[2020-07-24] MEDS: LACTATED RINGERS 1,000 ML IV SCH ×2 (04:26→14:46)
[2020-07-24] MEDS: ASPIRIN 325 MG TABLET PO SCH (05:50)
[2020-07-24] MEDS: CARVEDILOL 3.125 MG TABLET PO SCH ×2 (05:50→17:04)
[2020-07-24 07:24] VITALS: BP 105/70
[2020-07-24] MEDS: OPIUM TINCTURE 1% 10 MG/ML ORAL.SOL PO SCH ×3 (08:22→21:26)
[2020-07-24 12:26] VITALS: BP 113/73
[2020-07-24] MEDS: DIPHENHYDRAMINE 50 MG/ML, 1ML IVPush PRN ×2 (12:31→18:24)
[2020-07-24] MEDS ORDERED: MCT IV SCH (17:00)
[2020-07-24] MEDS ORDERED: FISH OIL IV SCH (17:00)
[2020-07-24] MEDS ORDERED: SOY IV SCH (17:00)
[2020-07-24] MEDS ORDERED: DEXTROSE 70% IV SCH (17:00)
[2020-07-24] MEDS ORDERED: FAT EMUL IV SCH (17:00)
[2020-07-24] MEDS ORDERED: [UNRECOGNIZED DRUG - OTHER] IV SCH (17:00)
[2020-07-24] MEDS ORDERED: AMINO ACIDS 10% IV SCH (17:00)
[2020-07-24] MEDS ORDERED: OLIV IV SCH (17:00)
[2020-07-24] MEDS: FILTER 1.2 MICRON FOR TPN/PVN IV PRN (17:04)
[2020-07-24 19:17] VITALS: BP 113/75
[2020-07-25] MEDS: HYDROmorphone 2 MG/ML, 1ML IVPush PRN ×6 (00:26→22:06)
[2020-07-25] MEDS: DIPHENHYDRAMINE 50 MG/ML, 1ML IVPush PRN ×4 (00:26→19:00)
[2020-07-25 00:31] VITALS: BP 122/85
[2020-07-25] MEDS: LACTATED RINGERS 1,000 ML IV SCH ×2 (04:21→12:56)
[2020-07-25 04:52] LABS: ANION GAP 7 mmol/L (5-15); CHLORIDE 107 mmol/L (98-107)
[2020-07-25] MEDS: CARVEDILOL 3.125 MG TABLET PO SCH ×2 (06:27→18:54)
[2020-07-25] MEDS: ASPIRIN 325 MG TABLET PO SCH (06:27)
[2020-07-25 07:28] VITALS: BP 102/66
[2020-07-25] MEDS: OPIUM TINCTURE 1% 10 MG/ML ORAL.SOL PO SCH ×3 (09:00→22:06)
[2020-07-25 12:51] VITALS: BP 120/85
[2020-07-25] MEDS ORDERED: DEXTROSE 70% IV SCH (17:00)
[2020-07-25] MEDS ORDERED: MCT IV SCH (17:00)
[2020-07-25] MEDS ORDERED: OLIV IV SCH (17:00)
[2020-07-25] MEDS ORDERED: FISH OIL IV SCH (17:00)
[2020-07-25] MEDS ORDERED: [UNRECOGNIZED DRUG - OTHER] IV SCH (17:00)
[2020-07-25] MEDS ORDERED: FAT EMUL IV SCH (17:00)
[2020-07-25] MEDS ORDERED: AMINO ACIDS 10% IV SCH (17:00)
[2020-07-25] MEDS ORDERED: SOY IV SCH (17:00)
[2020-07-25] MEDS: FILTER 1.2 MICRON FOR TPN/PVN IV PRN (17:11)
[2020-07-25 19:54] VITALS: BP 107/73
[2020-07-26 00:54] VITALS: BP 112/75
[2020-07-26] MEDS: DIPHENHYDRAMINE 50 MG/ML, 1ML IVPush PRN ×2 (01:24→12:08)
[2020-07-26] MEDS: HYDROmorphone 2 MG/ML, 1ML IVPush PRN ×6 (01:25→20:11)
[2020-07-26] MEDS: ASPIRIN 325 MG TABLET PO SCH (04:48)
[2020-07-26] MEDS: CARVEDILOL 3.125 MG TABLET PO SCH ×2 (04:48→18:29)
[2020-07-26 05:20] LABS: ALBUMIN 2.6 g/dL (3.4-5.0); ANION GAP 5 mmol/L (5-15); CALCIUM 8.6 mg/dL (8.5-10.1); CHLORIDE 107 mmol/L (98-107)
[2020-07-26 05:24] LABS: ALANINE AMINOTRANSFERASE 59 U/L (12-78); ALKALINE PHOSPHATASE 329 U/L (45-117); BILIRUBIN,TOTAL 0.2 mg/dL (0.2-1.0); TRIGLYCERIDES 228 mg/dL (50-200)
[2020-07-26] MEDS: LACTATED RINGERS 1,000 ML IV SCH (05:40)
[2020-07-26 07:22] VITALS: BP 96/5
[2020-07-26] MEDS: OPIUM TINCTURE 1% 10 MG/ML ORAL.SOL PO SCH ×3 (10:48→20:11)
[2020-07-26 13:10] VITALS: BP 120/83
[2020-07-26] MEDS ORDERED: SOY IV SCH (17:00)
[2020-07-26] MEDS ORDERED: [UNRECOGNIZED DRUG - OTHER] IV SCH (17:00)
[2020-07-26] MEDS ORDERED: MCT IV SCH (17:00)
[2020-07-26] MEDS ORDERED: AMINO ACIDS 10% IV SCH (17:00)
[2020-07-26] MEDS ORDERED: FAT EMUL IV SCH (17:00)
[2020-07-26] MEDS ORDERED: FISH OIL IV SCH (17:00)
[2020-07-26] MEDS ORDERED: DEXTROSE 70% IV SCH (17:00)
[2020-07-26] MEDS ORDERED: OLIV IV SCH (17:00)
[2020-07-26] MEDS: FILTER 1.2 MICRON FOR TPN/PVN IV PRN (17:06)
[2020-07-26 19:22] VITALS: BP 107/69
[2020-07-27] MEDS: DIPHENHYDRAMINE 50 MG/ML, 1ML IVPush PRN ×4 (00:41→19:55)
[2020-07-27] MEDS: HYDROmorphone 2 MG/ML, 1ML IVPush PRN ×7 (01:48→22:50)
[2020-07-27 02:07] VITALS: BP 99/63
[2020-07-27] MEDS: ASPIRIN 325 MG TABLET PO SCH (04:59)
[2020-07-27] MEDS: CARVEDILOL 3.125 MG TABLET PO SCH ×2 (04:59→16:38)
[2020-07-27 05:14] LABS: BASOPHILS % (AUTO) 1 % (0-1); EOSINOPHILS % (AUTO) 5 % (1-7); LYMPHOCYTES % (AUTO) 15 % (22-44); MEAN CORPUSCULAR HEMOGLOBIN 32.4 pg (27.0-34.8); MEAN CORPUSCULAR HGB CONC 33.6 g/dL (32.4-35.8); MEAN PLATELET VOLUME 8.5 fL (7.4-10.4); MONOCYTES % (AUTO) 10 % (2-9); NEUTROPHILS % (AUTO) 69 % (42-75); PLATELET COUNT 321 x10^3/uL (130-400); RED BLOOD COUNT 2.55 x10^6/uL (3.82-5.3); RED CELL DISTRIBUTION WIDTH 14.7 % (9.6-15.2)
[2020-07-27 05:37] LABS: MD NO
[2020-07-27 06:47] VITALS: BP 93/61
[2020-07-27] MEDS: OPIUM TINCTURE 1% 10 MG/ML ORAL.SOL PO SCH ×3 (09:00→21:10)
[2020-07-27] MEDS: FERROUS SULFATE 325 MG TABLET PO SCH (10:39)
[2020-07-27] MEDS: LACTATED RINGERS 1,000 ML IV SCH (12:26)
[2020-07-27 13:16] VITALS: BP 105/72
[2020-07-27] MEDS ORDERED: FISH OIL IV SCH (17:00)
[2020-07-27] MEDS ORDERED: AMINO ACIDS 10% IV SCH (17:00)
[2020-07-27] MEDS ORDERED: FAT EMUL IV SCH (17:00)
[2020-07-27] MEDS ORDERED: MCT IV SCH (17:00)
[2020-07-27] MEDS ORDERED: SOY IV SCH (17:00)
[2020-07-27] MEDS ORDERED: DEXTROSE 70% IV SCH (17:00)
[2020-07-27] MEDS ORDERED: [UNRECOGNIZED DRUG - OTHER] IV SCH (17:00)
[2020-07-27] MEDS ORDERED: OLIV IV SCH (17:00)
[2020-07-27] MEDS: FILTER 1.2 MICRON FOR TPN/PVN IV PRN (17:15)
[2020-07-27 18:30] VITALS: BP 97/60
[2020-07-28] MEDS: HYDROmorphone 2 MG/ML, 1ML IVPush PRN ×10 (00:37→23:53)
[2020-07-28 01:26] VITALS: BP 107/74
[2020-07-28] MEDS: DIPHENHYDRAMINE 50 MG/ML, 1ML IVPush PRN ×4 (02:00→20:46)
[2020-07-28] MEDS: LACTATED RINGERS 1,000 ML IV SCH ×2 (05:49→17:08)
[2020-07-28] MEDS: ASPIRIN 325 MG TABLET PO SCH (06:09)
[2020-07-28] MEDS: CARVEDILOL 3.125 MG TABLET PO SCH ×2 (06:09→17:06)
[2020-07-28 06:22] LABS: ANION GAP 4 mmol/L (5-15); CALCIUM 8.2 mg/dL (8.5-10.1); CHLORIDE 101 mmol/L (98-107)
[2020-07-28 06:25] LABS: CREATININE 0.49 mg/dL (0.55-1.02)
[2020-07-28] MEDS: FERROUS SULFATE 325 MG TABLET PO SCH (07:55)
[2020-07-28 08:01] VITALS: BP 115/74
[2020-07-28] MEDS: OPIUM TINCTURE 1% 10 MG/ML ORAL.SOL PO SCH ×3 (09:27→20:47)
[2020-07-28 14:29] VITALS: BP 114/78
[2020-07-28] MEDS: FILTER 1.2 MICRON FOR TPN/PVN IV PRN (16:56)
[2020-07-28] MEDS ORDERED: FISH OIL IV SCH (17:00)
[2020-07-28] MEDS ORDERED: [UNRECOGNIZED DRUG - OTHER] IV SCH (17:00)
[2020-07-28] MEDS ORDERED: MCT IV SCH (17:00)
[2020-07-28] MEDS ORDERED: AMINO ACIDS 10% IV SCH (17:00)
[2020-07-28] MEDS ORDERED: SOY IV SCH (17:00)
[2020-07-28] MEDS ORDERED: DEXTROSE 70% IV SCH (17:00)
[2020-07-28] MEDS ORDERED: FAT EMUL IV SCH (17:00)
[2020-07-28] MEDS ORDERED: OLIV IV SCH (17:00)
[2020-07-28 19:16] VITALS: BP 100/64
[2020-07-29 00:17] VITALS: BP 103/66
[2020-07-29] MEDS: DIPHENHYDRAMINE 50 MG/ML, 1ML IVPush PRN ×4 (02:49→21:44)
[2020-07-29] MEDS: HYDROmorphone 2 MG/ML, 1ML IVPush PRN ×7 (02:50→21:44)
[2020-07-29 04:32] LABS: ANION GAP 5 mmol/L (5-15); CALCIUM 8.1 mg/dL (8.5-10.1); CHLORIDE 102 mmol/L (98-107); CREATININE 0.45 mg/dL (0.55-1.02)
[2020-07-29] MEDS: LACTATED RINGERS 1,000 ML IV SCH ×2 (05:32→21:45)
[2020-07-29] MEDS: CARVEDILOL 3.125 MG TABLET PO SCH ×2 (05:45→18:35)
[2020-07-29] MEDS: ASPIRIN 325 MG TABLET PO SCH (05:45)
[2020-07-29 07:48] VITALS: BP 99/66
[2020-07-29] MEDS: FERROUS SULFATE 325 MG TABLET PO SCH (09:05)
[2020-07-29] MEDS: OPIUM TINCTURE 1% 10 MG/ML ORAL.SOL PO SCH ×3 (09:07→21:43)
[2020-07-29 13:44] VITALS: BP 98/67
[2020-07-29] MEDS ORDERED: [UNRECOGNIZED DRUG - OTHER] IV SCH (16:00)
[2020-07-29] MEDS ORDERED: AMINO ACIDS 10% IV SCH (16:00)
[2020-07-29] MEDS ORDERED: SOY IV SCH (16:00)
[2020-07-29] MEDS ORDERED: DEXTROSE 70% IV SCH (16:00)
[2020-07-29] MEDS ORDERED: FAT EMUL IV SCH (16:00)
[2020-07-29] MEDS ORDERED: MCT IV SCH (16:00)
[2020-07-29] MEDS ORDERED: OLIV IV SCH (16:00)
[2020-07-29] MEDS ORDERED: FISH OIL IV SCH (16:00)
[2020-07-29 18:42] VITALS: BP 124/82
[2020-07-30 00:10] VITALS: BP 104/53
[2020-07-30] MEDS: HYDROmorphone 2 MG/ML, 1ML IVPush PRN ×6 (00:52→21:56)
[2020-07-30] MEDS: DIPHENHYDRAMINE 50 MG/ML, 1ML IVPush PRN ×4 (04:12→23:32)
[2020-07-30] MEDS: CARVEDILOL 3.125 MG TABLET PO SCH ×2 (05:38→17:40)
[2020-07-30] MEDS: ASPIRIN 325 MG TABLET PO SCH (05:38)
[2020-07-30 06:11] LABS: BASOPHILS % (AUTO) 1 % (0-1); EOSINOPHILS % (AUTO) 5 % (1-7); LYMPHOCYTES % (AUTO) 15 % (22-44); MEAN CORPUSCULAR HEMOGLOBIN 32.3 pg (27.0-34.8); MEAN CORPUSCULAR HGB CONC 33.5 g/dL (32.4-35.8); MEAN PLATELET VOLUME 8.6 fL (7.4-10.4); MONOCYTES % (AUTO) 8 % (2-9); NEUTROPHILS % (AUTO) 70 % (42-75); PLATELET COUNT 397 x10^3/uL (130-400); RED BLOOD COUNT 2.71 x10^6/uL (3.82-5.3); RED CELL DISTRIBUTION WIDTH 14.1 % (9.6-15.2)
[2020-07-30 06:14] LABS: MD NO
[2020-07-30 06:23] LABS: ANION GAP 4 mmol/L (5-15); CALCIUM 8.5 mg/dL (8.5-10.1); CHLORIDE 100 mmol/L (98-107); CREATININE 0.49 mg/dL (0.55-1.02)
[2020-07-30 07:26] VITALS: BP 96/62
[2020-07-30] MEDS: FERROUS SULFATE 325 MG TABLET PO SCH (08:03)
[2020-07-30] MEDS: OPIUM TINCTURE 1% 10 MG/ML ORAL.SOL PO SCH ×3 (08:03→20:40)
[2020-07-30] MEDS: LACTATED RINGERS 1,000 ML IV SCH ×2 (08:04→20:03)
[2020-07-30] MEDS ORDERED: SINCALIDE (KINEVAC) 5 MCG ONE (14:43)
[2020-07-30 15:37] VITALS: BP 107/75
[2020-07-30] MEDS ORDERED: OLIV IV SCH (16:00)
[2020-07-30] MEDS ORDERED: SOY IV SCH (16:00)
[2020-07-30] MEDS ORDERED: FISH OIL IV SCH (16:00)
[2020-07-30] MEDS ORDERED: MCT IV SCH (16:00)
[2020-07-30] MEDS ORDERED: AMINO ACIDS 10% IV SCH (16:00)
[2020-07-30] MEDS ORDERED: FAT EMUL IV SCH (16:00)
[2020-07-30] MEDS ORDERED: [UNRECOGNIZED DRUG - OTHER] IV SCH (16:00)
[2020-07-30] MEDS ORDERED: DEXTROSE 70% IV SCH (16:00)
[2020-07-30 19:59] VITALS: BP 95/61
[2020-07-31 00:46] VITALS: BP 97/63
[2020-07-31] MEDS: HYDROmorphone 2 MG/ML, 1ML IVPush PRN ×8 (00:49→23:12)
[2020-07-31] MEDS ORDERED: CATHFLO-ALTEPLASE 2 MG/2 ML CATHFLUSH ONE (05:00)
[2020-07-31] MEDS: ASPIRIN 325 MG TABLET PO SCH (05:25)
[2020-07-31] MEDS: CARVEDILOL 3.125 MG TABLET PO SCH ×2 (05:25→16:52)
[2020-07-31] MEDS: DIPHENHYDRAMINE 50 MG/ML, 1ML IVPush PRN ×3 (05:54→18:31)
[2020-07-31] MEDS: LACTATED RINGERS 1,000 ML IV SCH ×2 (05:56→21:41)
[2020-07-31 06:17] LABS: CHLORIDE 101 mmol/L (98-107)
[2020-07-31 06:24] LABS: ANION GAP 5 mmol/L (5-15); CALCIUM 8.1 mg/dL (8.5-10.1); CREATININE 0.44 mg/dL (0.55-1.02)
[2020-07-31 07:13] VITALS: BP 96/61
[2020-07-31] MEDS: OPIUM TINCTURE 1% 10 MG/ML ORAL.SOL PO SCH ×3 (07:53→21:02)
[2020-07-31] MEDS: FERROUS SULFATE 325 MG TABLET PO SCH (07:53)
[2020-07-31 13:07] VITALS: BP 104/72
[2020-07-31] MEDS: FILTER 1.2 MICRON FOR TPN/PVN IV PRN (16:29)
[2020-07-31 16:52] VITALS: BP 96/67
[2020-07-31] MEDS ORDERED: AMINO ACIDS 10% IV SCH (17:00)
[2020-07-31] MEDS ORDERED: DEXTROSE 70% IV SCH (17:00)
[2020-07-31] MEDS ORDERED: OLIV IV SCH (17:00)
[2020-07-31] MEDS ORDERED: SOY IV SCH (17:00)
[2020-07-31] MEDS ORDERED: FISH OIL IV SCH (17:00)
[2020-07-31] MEDS ORDERED: FAT EMUL IV SCH (17:00)
[2020-07-31] MEDS ORDERED: [UNRECOGNIZED DRUG - OTHER] IV SCH (17:00)
[2020-07-31] MEDS ORDERED: MCT IV SCH (17:00)
[2020-07-31 19:13] VITALS: BP 106/75
[2020-08-01] MEDS: DIPHENHYDRAMINE 50 MG/ML, 1ML IVPush PRN ×4 (00:24→20:15)
[2020-08-01 00:27] VITALS: BP 106/71
[2020-08-01] MEDS: HYDROmorphone 2 MG/ML, 1ML IVPush PRN ×6 (02:55→21:51)
[2020-08-01] MEDS: LACTATED RINGERS 1,000 ML IV SCH (04:35)
[2020-08-01 05:03] LABS: ANION GAP 5 mmol/L (5-15); CALCIUM 8.3 mg/dL (8.5-10.1); CHLORIDE 101 mmol/L (98-107); CREATININE 0.46 mg/dL (0.55-1.02)
[2020-08-01 05:35] VITALS: BP 109/65
[2020-08-01] MEDS: CARVEDILOL 3.125 MG TABLET PO SCH ×2 (05:36→17:56)
[2020-08-01] MEDS: ASPIRIN 325 MG TABLET PO SCH (05:36)
[2020-08-01 06:10] VITALS: BP 98/67
[2020-08-01] MEDS: FERROUS SULFATE 325 MG TABLET PO SCH (07:39)
[2020-08-01] MEDS: OPIUM TINCTURE 1% 10 MG/ML ORAL.SOL PO SCH ×3 (09:27→21:50)
[2020-08-01 12:16] VITALS: BP 103/68
[2020-08-01] MEDS ORDERED: [UNRECOGNIZED DRUG - OTHER] IV SCH (16:00)
[2020-08-01] MEDS ORDERED: DEXTROSE 70% IV SCH (16:00)
[2020-08-01] MEDS ORDERED: FISH OIL IV SCH (16:00)
[2020-08-01] MEDS ORDERED: FAT EMUL IV SCH (16:00)
[2020-08-01] MEDS ORDERED: AMINO ACIDS 10% IV SCH (16:00)
[2020-08-01] MEDS ORDERED: SOY IV SCH (16:00)
[2020-08-01] MEDS ORDERED: OLIV IV SCH (16:00)
[2020-08-01] MEDS ORDERED: MCT IV SCH (16:00)
[2020-08-01] MEDS: SODIUM CHLORIDE 0.9% 1,000 ML IV SCH (16:42)
[2020-08-01] MEDS: FILTER 1.2 MICRON FOR TPN/PVN IV PRN (16:42)
[2020-08-01 19:23] VITALS: BP 108/69
[2020-08-02] MEDS: HYDROmorphone 2 MG/ML, 1ML IVPush PRN ×7 (01:02→21:24)
[2020-08-02] MEDS: DIPHENHYDRAMINE 50 MG/ML, 1ML IVPush PRN ×4 (02:09→22:21)
[2020-08-02 02:37] VITALS: BP 100/66
[2020-08-02] MEDS: ASPIRIN 325 MG TABLET PO SCH (05:17)
[2020-08-02] MEDS: CARVEDILOL 3.125 MG TABLET PO SCH ×2 (05:17→17:42)
[2020-08-02] MEDS: LACTATED RINGERS 1,000 ML IV SCH ×2 (05:37→17:14)
[2020-08-02 06:09] LABS: ALANINE AMINOTRANSFERASE 38 U/L (12-78); ALBUMIN 2.6 g/dL (3.4-5.0); ANION GAP 4 mmol/L (5-15); CALCIUM 8.3 mg/dL (8.5-10.1); CHLORIDE 104 mmol/L (98-107); CREATININE 0.48 mg/dL (0.55-1.02)
[2020-08-02 06:14] LABS: ALKALINE PHOSPHATASE 294 U/L (45-117); BILIRUBIN,TOTAL 0.2 mg/dL (0.2-1.0); PREALBUMIN 22.1 mg/dL (20.0-40.0); TOTAL PROTEIN 7.3 g/dL (6.4-8.2); TRIGLYCERIDES 197 mg/dL (50-200)
[2020-08-02 07:00] VITALS: BP 102/66
[2020-08-02] MEDS: FERROUS SULFATE 325 MG TABLET PO SCH (08:25)
[2020-08-02] MEDS: OPIUM TINCTURE 1% 10 MG/ML ORAL.SOL PO SCH ×3 (08:26→21:24)
[2020-08-02 12:58] VITALS: BP 100/68
[2020-08-02] MEDS ORDERED: [UNRECOGNIZED DRUG - OTHER] IV SCH (17:00)
[2020-08-02] MEDS ORDERED: SOY IV SCH (17:00)
[2020-08-02] MEDS ORDERED: FAT EMUL IV SCH (17:00)
[2020-08-02] MEDS ORDERED: MCT IV SCH (17:00)
[2020-08-02] MEDS ORDERED: OLIV IV SCH (17:00)
[2020-08-02] MEDS ORDERED: DEXTROSE 70% IV SCH (17:00)
[2020-08-02] MEDS ORDERED: FISH OIL IV SCH (17:00)
[2020-08-02] MEDS ORDERED: AMINO ACIDS 10% IV SCH (17:00)
[2020-08-02] MEDS: FILTER 1.2 MICRON FOR TPN/PVN IV PRN (17:08)
[2020-08-02] MEDS: SODIUM CHLORIDE 0.9% 1,000 ML IV SCH (17:14)
[2020-08-02] MEDS: ONDANSETRON 2MG/ML, 2ML IVPush PRN (17:43)
[2020-08-02 18:42] VITALS: BP 105/69
[2020-08-03] MEDS: HYDROmorphone 2 MG/ML, 1ML IVPush PRN ×7 (00:15→21:28)
[2020-08-03 03:58] VITALS: BP 95/64
[2020-08-03] MEDS: DIPHENHYDRAMINE 50 MG/ML, 1ML IVPush PRN ×3 (05:23→17:37)
[2020-08-03] MEDS: LACTATED RINGERS 1,000 ML IV SCH (05:24)
[2020-08-03] MEDS: CARVEDILOL 3.125 MG TABLET PO SCH ×2 (05:46→17:37)
[2020-08-03] MEDS: ASPIRIN 325 MG TABLET PO SCH (05:46)
[2020-08-03 06:55] VITALS: BP 96/62
[2020-08-03] MEDS: OPIUM TINCTURE 1% 10 MG/ML ORAL.SOL PO SCH ×3 (08:12→21:27)
[2020-08-03] MEDS: FERROUS SULFATE 325 MG TABLET PO SCH (08:12)
[2020-08-03 13:58] VITALS: BP 99/68
[2020-08-03] MEDS ORDERED: FAT EMUL IV SCH (17:00)
[2020-08-03] MEDS: FILTER 1.2 MICRON FOR TPN/PVN IV PRN (17:00)
[2020-08-03] MEDS ORDERED: MCT IV SCH (17:00)
[2020-08-03] MEDS ORDERED: AMINO ACIDS 10% IV SCH (17:00)
[2020-08-03] MEDS ORDERED: OLIV IV SCH (17:00)
[2020-08-03] MEDS ORDERED: FISH OIL IV SCH (17:00)
[2020-08-03] MEDS ORDERED: [UNRECOGNIZED DRUG - OTHER] IV SCH (17:00)
[2020-08-03] MEDS ORDERED: DEXTROSE 70% IV SCH (17:00)
[2020-08-03] MEDS ORDERED: SOY IV SCH (17:00)
[2020-08-03 18:47] VITALS: BP 102/67
[2020-08-04] MEDS: DIPHENHYDRAMINE 50 MG/ML, 1ML IVPush PRN ×4 (00:22→18:42)
[2020-08-04 01:06] VITALS: BP 110/73
[2020-08-04] MEDS: HYDROmorphone 2 MG/ML, 1ML IVPush PRN ×7 (01:27→20:54)
[2020-08-04 04:05] LABS: ANION GAP 3 mmol/L (5-15); CALCIUM 8.2 mg/dL (8.5-10.1); CHLORIDE 102 mmol/L (98-107); CREATININE 0.48 mg/dL (0.55-1.02)
[2020-08-04] MEDS: LACTATED RINGERS 1,000 ML IV SCH ×2 (05:28→17:17)
[2020-08-04] MEDS: CARVEDILOL 3.125 MG TABLET PO SCH ×2 (06:02→17:07)
[2020-08-04] MEDS: ASPIRIN 325 MG TABLET PO SCH (06:02)
[2020-08-04] MEDS: FERROUS SULFATE 325 MG TABLET PO SCH (07:21)
[2020-08-04 07:29] VITALS: BP 93/61
[2020-08-04] MEDS: OPIUM TINCTURE 1% 10 MG/ML ORAL.SOL PO SCH ×3 (08:39→20:53)
[2020-08-04 14:58] VITALS: BP 105/69
[2020-08-04] MEDS: FILTER 1.2 MICRON FOR TPN/PVN IV PRN (16:05)
[2020-08-04] MEDS ORDERED: FAT EMUL IV SCH (17:00)
[2020-08-04] MEDS ORDERED: DEXTROSE 70% IV SCH (17:00)
[2020-08-04] MEDS ORDERED: [UNRECOGNIZED DRUG - OTHER] IV SCH (17:00)
[2020-08-04] MEDS ORDERED: AMINO ACIDS 10% IV SCH (17:00)
[2020-08-04] MEDS ORDERED: OLIV IV SCH (17:00)
[2020-08-04] MEDS ORDERED: SOY IV SCH (17:00)
[2020-08-04] MEDS ORDERED: MCT IV SCH (17:00)
[2020-08-04] MEDS ORDERED: FISH OIL IV SCH (17:00)
[2020-08-04 18:46] VITALS: BP 125/83
[2020-08-05] MEDS: HYDROmorphone 2 MG/ML, 1ML IVPush PRN ×6 (00:14→23:07)
[2020-08-05 00:51] VITALS: BP 109/69
[2020-08-05] MEDS: DIPHENHYDRAMINE 50 MG/ML, 1ML IVPush PRN ×4 (01:48→20:54)
[2020-08-05 04:36] LABS: ANION GAP 4 mmol/L (5-15); CALCIUM 8.3 mg/dL (8.5-10.1); CHLORIDE 105 mmol/L (98-107); CREATININE 0.56 mg/dL (0.55-1.02)
[2020-08-05] MEDS: ASPIRIN 325 MG TABLET PO SCH (07:16)
[2020-08-05] MEDS: CARVEDILOL 3.125 MG TABLET PO SCH ×2 (07:16→17:23)
[2020-08-05] MEDS: LACTATED RINGERS 1,000 ML IV SCH ×2 (07:17→20:40)
[2020-08-05 07:34] VITALS: BP 96/63
[2020-08-05] MEDS: FERROUS SULFATE 325 MG TABLET PO SCH (08:17)
[2020-08-05] MEDS: OPIUM TINCTURE 1% 10 MG/ML ORAL.SOL PO SCH ×3 (08:17→20:50)
[2020-08-05 14:30] VITALS: BP 106/71
[2020-08-05] MEDS ORDERED: SOY IV SCH (17:00)
[2020-08-05] MEDS ORDERED: OLIV IV SCH (17:00)
[2020-08-05] MEDS ORDERED: [UNRECOGNIZED DRUG - OTHER] IV SCH (17:00)
[2020-08-05] MEDS ORDERED: FAT EMUL IV SCH (17:00)
[2020-08-05] MEDS ORDERED: DEXTROSE 70% IV SCH (17:00)
[2020-08-05] MEDS ORDERED: AMINO ACIDS 10% IV SCH (17:00)
[2020-08-05] MEDS ORDERED: MCT IV SCH (17:00)
[2020-08-05] MEDS ORDERED: FISH OIL IV SCH (17:00)
[2020-08-05 18:51] VITALS: BP 100/63
[2020-08-06 01:11] VITALS: BP 100/61
[2020-08-06] MEDS: HYDROmorphone 2 MG/ML, 1ML IVPush PRN ×7 (02:19→21:46)
[2020-08-06] MEDS: DIPHENHYDRAMINE 50 MG/ML, 1ML IVPush PRN ×4 (03:25→22:59)
[2020-08-06 04:54] VITALS: BP 105/61
[2020-08-06] MEDS: ASPIRIN 325 MG TABLET PO SCH (04:55)
[2020-08-06] MEDS: CARVEDILOL 3.125 MG TABLET PO SCH ×2 (04:55→17:07)
[2020-08-06] MEDS: LACTATED RINGERS 1,000 ML IV SCH (05:09)
[2020-08-06 05:44] LABS: BASOPHILS % (AUTO) 1 % (0-1); EOSINOPHILS % (AUTO) 3 % (1-7); LYMPHOCYTES % (AUTO) 12 % (22-44); MEAN CORPUSCULAR HEMOGLOBIN 32.2 pg (27.0-34.8); MEAN CORPUSCULAR HGB CONC 33.4 g/dL (32.4-35.8); MEAN PLATELET VOLUME 8.6 fL (7.4-10.4); MONOCYTES % (AUTO) 11 % (2-9); NEUTROPHILS % (AUTO) 73 % (42-75); PLATELET COUNT 349 x10^3/uL (130-400); RED BLOOD COUNT 2.71 x10^6/uL (3.82-5.3); RED CELL DISTRIBUTION WIDTH 13.7 % (9.6-15.2)
[2020-08-06 05:46] VITALS: BP 96/60
[2020-08-06 05:54] LABS: MD NO
[2020-08-06 07:23] VITALS: BP 93/62
[2020-08-06] MEDS: OPIUM TINCTURE 1% 10 MG/ML ORAL.SOL PO SCH ×3 (09:29→20:33)
[2020-08-06] MEDS: FERROUS SULFATE 325 MG TABLET PO SCH (09:29)
[2020-08-06 13:02] VITALS: BP 104/71
[2020-08-06] MEDS ORDERED: DEXTROSE 70% IV SCH (17:00)
[2020-08-06] MEDS ORDERED: FAT EMUL IV SCH (17:00)
[2020-08-06] MEDS ORDERED: [UNRECOGNIZED DRUG - OTHER] IV SCH (17:00)
[2020-08-06] MEDS ORDERED: OLIV IV SCH (17:00)
[2020-08-06] MEDS ORDERED: AMINO ACIDS 10% IV SCH (17:00)
[2020-08-06] MEDS ORDERED: SOY IV SCH (17:00)
[2020-08-06] MEDS ORDERED: MCT IV SCH (17:00)
[2020-08-06] MEDS ORDERED: FISH OIL IV SCH (17:00)
[2020-08-06 20:15] VITALS: BP 93/60
[2020-08-07 01:05] VITALS: BP 97/60
[2020-08-07] MEDS: HYDROmorphone 2 MG/ML, 1ML IVPush PRN ×7 (01:07→21:28)
[2020-08-07] MEDS: LACTATED RINGERS 1,000 ML IV SCH ×2 (05:35→18:20)
[2020-08-07] MEDS: DIPHENHYDRAMINE 50 MG/ML, 1ML IVPush PRN ×3 (05:40→18:36)
[2020-08-07] MEDS: ASPIRIN 325 MG TABLET PO SCH (05:40)
[2020-08-07] MEDS: CARVEDILOL 3.125 MG TABLET PO SCH ×2 (05:41→17:48)
[2020-08-07 05:42] VITALS: BP 101/67
[2020-08-07 06:15] LABS: CALCIUM 8.3 mg/dL (8.5-10.1); CHLORIDE 102 mmol/L (98-107)
[2020-08-07 06:19] LABS: ANION GAP 3 mmol/L (5-15); CREATININE 0.47 mg/dL (0.55-1.02)
[2020-08-07 07:10] VITALS: BP 90/56
[2020-08-07] MEDS: OPIUM TINCTURE 1% 10 MG/ML ORAL.SOL PO SCH ×3 (07:59→21:18)
[2020-08-07] MEDS: FERROUS SULFATE 325 MG TABLET PO SCH (08:00)
[2020-08-07] MEDS ORDERED: ESTRADIOL 0.05 MG/24 HR PATCH TD SCH (11:30)
[2020-08-07 14:19] VITALS: BP 100/69
[2020-08-07] MEDS ORDERED: MCT IV SCH (17:00)
[2020-08-07] MEDS ORDERED: SOY IV SCH (17:00)
[2020-08-07] MEDS ORDERED: OLIV IV SCH (17:00)
[2020-08-07] MEDS ORDERED: FISH OIL IV SCH (17:00)
[2020-08-07] MEDS ORDERED: DEXTROSE 70% IV SCH (17:00)
[2020-08-07] MEDS ORDERED: [UNRECOGNIZED DRUG - OTHER] IV SCH (17:00)
[2020-08-07] MEDS ORDERED: FAT EMUL IV SCH (17:00)
[2020-08-07] MEDS ORDERED: AMINO ACIDS 10% IV SCH (17:00)
[2020-08-07 19:17] VITALS: BP 105/68
[2020-08-08 00:24] VITALS: BP 100/62
[2020-08-08] MEDS: HYDROmorphone 2 MG/ML, 1ML IVPush PRN ×9 (00:30→23:46)
[2020-08-08] MEDS: DIPHENHYDRAMINE 50 MG/ML, 1ML IVPush PRN ×4 (01:44→19:43)
[2020-08-08] MEDS: LACTATED RINGERS 1,000 ML IV SCH ×2 (05:10→21:00)
[2020-08-08 05:27] VITALS: BP 93/50
[2020-08-08] MEDS: ASPIRIN 325 MG TABLET PO SCH (05:29)
[2020-08-08] MEDS: CARVEDILOL 3.125 MG TABLET PO SCH ×2 (05:29→17:05)
[2020-08-08 07:00] VITALS: BP 100/67
[2020-08-08] MEDS: FERROUS SULFATE 325 MG TABLET PO SCH (07:53)
[2020-08-08] MEDS: OPIUM TINCTURE 1% 10 MG/ML ORAL.SOL PO SCH ×3 (09:12→23:15)
[2020-08-08 13:20] VITALS: BP 103/66
[2020-08-08] MEDS ORDERED: AMINO ACIDS 10% IV SCH (17:00)
[2020-08-08] MEDS ORDERED: OLIV IV SCH (17:00)
[2020-08-08] MEDS ORDERED: SOY IV SCH (17:00)
[2020-08-08] MEDS ORDERED: DEXTROSE 70% IV SCH (17:00)
[2020-08-08] MEDS ORDERED: FAT EMUL IV SCH (17:00)
[2020-08-08] MEDS ORDERED: [UNRECOGNIZED DRUG - OTHER] IV SCH (17:00)
[2020-08-08] MEDS ORDERED: MCT IV SCH (17:00)
[2020-08-08] MEDS ORDERED: FISH OIL IV SCH (17:00)
[2020-08-08 18:51] VITALS: BP 115/75
[2020-08-09] MEDS: DIPHENHYDRAMINE 50 MG/ML, 1ML IVPush PRN ×4 (01:50→21:10)
[2020-08-09] MEDS: HYDROmorphone 2 MG/ML, 1ML IVPush PRN ×7 (02:50→22:16)
[2020-08-09 02:53] VITALS: BP 104/64
[2020-08-09] MEDS: LACTATED RINGERS 1,000 ML IV SCH (04:55)
[2020-08-09 05:26] LABS: ALBUMIN 2.6 g/dL (3.4-5.0); ANION GAP 3 mmol/L (5-15); CALCIUM 8.5 mg/dL (8.5-10.1); CHLORIDE 102 mmol/L (98-107)
[2020-08-09 05:33] LABS: ALANINE AMINOTRANSFERASE 38 U/L (12-78); ALKALINE PHOSPHATASE 283 U/L (45-117); BILIRUBIN,TOTAL 0.2 mg/dL (0.2-1.0); CREATININE 0.55 mg/dL (0.55-1.02); PREALBUMIN 19.2 mg/dL (20.0-40.0); TOTAL PROTEIN 7.6 g/dL (6.4-8.2)
[2020-08-09] MEDS: ASPIRIN 325 MG TABLET PO SCH (06:00)
[2020-08-09] MEDS: CARVEDILOL 3.125 MG TABLET PO SCH ×2 (06:04→17:16)
[2020-08-09 07:02] VITALS: BP 90/57
[2020-08-09] MEDS: FERROUS SULFATE 325 MG TABLET PO SCH (09:24)
[2020-08-09] MEDS: OPIUM TINCTURE 1% 10 MG/ML ORAL.SOL PO SCH ×3 (09:24→21:10)
[2020-08-09 13:55] VITALS: BP 105/71
[2020-08-09] MEDS ORDERED: DEXTROSE 70% IV SCH (17:00)
[2020-08-09] MEDS ORDERED: [UNRECOGNIZED DRUG - OTHER] IV SCH (17:00)
[2020-08-09] MEDS ORDERED: OLIV IV SCH (17:00)
[2020-08-09] MEDS ORDERED: FISH OIL IV SCH (17:00)
[2020-08-09] MEDS ORDERED: MCT IV SCH (17:00)
[2020-08-09] MEDS ORDERED: AMINO ACIDS 10% IV SCH (17:00)
[2020-08-09] MEDS ORDERED: SOY IV SCH (17:00)
[2020-08-09] MEDS ORDERED: FAT EMUL IV SCH (17:00)
[2020-08-09] MEDS: FILTER 1.2 MICRON FOR TPN/PVN IV PRN (17:15)
[2020-08-09 19:03] VITALS: BP 105/71
[2020-08-10 02:09] VITALS: BP 91/60
[2020-08-10] MEDS: HYDROmorphone 2 MG/ML, 1ML IVPush PRN ×5 (04:23→18:36)
[2020-08-10] MEDS: DIPHENHYDRAMINE 50 MG/ML, 1ML IVPush PRN ×3 (05:26→20:18)
[2020-08-10] MEDS: ASPIRIN 325 MG TABLET PO SCH (05:26)
[2020-08-10] MEDS: CARVEDILOL 3.125 MG TABLET PO SCH ×2 (05:26→17:10)
[2020-08-10] MEDS: LACTATED RINGERS 1,000 ML IV SCH ×2 (05:27→16:00)
[2020-08-10 06:59] VITALS: BP 97/70
[2020-08-10] MEDS: FERROUS SULFATE 325 MG TABLET PO SCH (08:04)
[2020-08-10] MEDS: OPIUM TINCTURE 1% 10 MG/ML ORAL.SOL PO SCH ×3 (08:05→20:17)
[2020-08-10 13:40] VITALS: BP 93/58
[2020-08-10] MEDS: FILTER 1.2 MICRON FOR TPN/PVN IV PRN (16:26)
[2020-08-10] MEDS ORDERED: [UNRECOGNIZED DRUG - OTHER] IV SCH ×2 (17:00)
[2020-08-10] MEDS ORDERED: FAT EMUL IV SCH ×2 (17:00)
[2020-08-10] MEDS ORDERED: OLIV IV SCH ×2 (17:00)
[2020-08-10] MEDS ORDERED: AMINO ACIDS 10% IV SCH ×2 (17:00)
[2020-08-10] MEDS ORDERED: SOY IV SCH ×2 (17:00)
[2020-08-10] MEDS ORDERED: MCT IV SCH ×2 (17:00)
[2020-08-10] MEDS ORDERED: FISH OIL IV SCH ×2 (17:00)
[2020-08-10] MEDS ORDERED: DEXTROSE 70% IV SCH ×2 (17:00)
[2020-08-10 19:02] VITALS: BP 109/76
[2020-08-10] MEDS: OXYcodone IR 5MG TABLET PO PRN (22:44)
[2020-08-11] MEDS: HYDROmorphone 2 MG/ML, 1ML IVPush PRN ×3 (00:08→13:13)
[2020-08-11 01:46] VITALS: BP 97/65
[2020-08-11] MEDS: DIPHENHYDRAMINE 50 MG/ML, 1ML IVPush PRN ×3 (04:58→18:09)
[2020-08-11 05:21] LABS: ANION GAP 5 mmol/L (5-15); CALCIUM 8.3 mg/dL (8.5-10.1); CHLORIDE 104 mmol/L (98-107)
[2020-08-11 05:22] LABS: CREATININE 0.54 mg/dL (0.55-1.02)
[2020-08-11 05:52] VITALS: BP 96/66
[2020-08-11] MEDS: OXYcodone IR 5MG TABLET PO PRN ×3 (05:54→19:49)
[2020-08-11] MEDS: CARVEDILOL 3.125 MG TABLET PO SCH ×2 (05:54→17:01)
[2020-08-11] MEDS: LACTATED RINGERS 1,000 ML IV SCH ×2 (05:54→18:08)
[2020-08-11] MEDS: ASPIRIN 325 MG TABLET PO SCH (05:54)
[2020-08-11 06:59] VITALS: BP 94/62
[2020-08-11] MEDS: OPIUM TINCTURE 1% 10 MG/ML ORAL.SOL PO SCH ×3 (08:54→20:48)
[2020-08-11] MEDS: FERROUS SULFATE 325 MG TABLET PO SCH (08:54)
[2020-08-11 12:41] VITALS: BP 104/71
[2020-08-11] MEDS ORDERED: FAT EMUL IV SCH (17:00)
[2020-08-11] MEDS ORDERED: [UNRECOGNIZED DRUG - OTHER] IV SCH (17:00)
[2020-08-11] MEDS ORDERED: DEXTROSE 70% IV SCH (17:00)
[2020-08-11] MEDS ORDERED: OLIV IV SCH (17:00)
[2020-08-11] MEDS ORDERED: MCT IV SCH (17:00)
[2020-08-11] MEDS: FILTER 1.2 MICRON FOR TPN/PVN IV PRN (17:00)
[2020-08-11] MEDS ORDERED: FISH OIL IV SCH (17:00)
[2020-08-11] MEDS ORDERED: SOY IV SCH (17:00)
[2020-08-11] MEDS ORDERED: AMINO ACIDS 10% IV SCH (17:00)
[2020-08-11 19:41] VITALS: BP 100/68
[2020-08-12] MEDS: OXYcodone IR 5MG TABLET PO PRN ×5 (00:04→22:26)
[2020-08-12] MEDS: DIPHENHYDRAMINE 50 MG/ML, 1ML IVPush PRN ×4 (00:04→20:34)
[2020-08-12 00:13] VITALS: BP 100/69
[2020-08-12] MEDS: HYDROmorphone 2 MG/ML, 1ML IVPush PRN ×2 (01:53→23:46)
[2020-08-12] MEDS: LACTATED RINGERS 1,000 ML IV SCH ×2 (05:31→20:34)
[2020-08-12 06:12] VITALS: BP 99/65
[2020-08-12] MEDS: CARVEDILOL 3.125 MG TABLET PO SCH ×2 (06:12→17:37)
[2020-08-12] MEDS: ASPIRIN 325 MG TABLET PO SCH (06:12)
[2020-08-12] MEDS: FERROUS SULFATE 325 MG TABLET PO SCH (07:34)
[2020-08-12 07:51] VITALS: BP 99/65
[2020-08-12] MEDS: OPIUM TINCTURE 1% 10 MG/ML ORAL.SOL PO SCH ×3 (08:26→20:34)
[2020-08-12] MEDS ORDERED: FENTANYL 12 MCG PATCH TD SCH (11:30)
[2020-08-12 13:04] VITALS: BP 102/55
[2020-08-12] MEDS ORDERED: DEXTROSE 70% IV SCH (17:00)
[2020-08-12] MEDS ORDERED: FAT EMUL IV SCH (17:00)
[2020-08-12] MEDS ORDERED: OLIV IV SCH (17:00)
[2020-08-12] MEDS ORDERED: AMINO ACIDS 10% IV SCH (17:00)
[2020-08-12] MEDS ORDERED: MCT IV SCH (17:00)
[2020-08-12] MEDS ORDERED: [UNRECOGNIZED DRUG - OTHER] IV SCH (17:00)
[2020-08-12] MEDS ORDERED: SOY IV SCH (17:00)
[2020-08-12] MEDS ORDERED: FISH OIL IV SCH (17:00)
[2020-08-12] MEDS: FILTER 1.2 MICRON FOR TPN/PVN IV PRN (17:25)
[2020-08-12 19:05] VITALS: BP 104/70
[2020-08-13 01:32] VITALS: BP 104/67
[2020-08-13] MEDS: DIPHENHYDRAMINE 50 MG/ML, 1ML IVPush PRN ×2 (04:36→11:01)
[2020-08-13 04:56] LABS: BASOPHILS % (AUTO) 1 % (0-1); EOSINOPHILS % (AUTO) 4 % (1-7); LYMPHOCYTES % (AUTO) 15 % (22-44); MD NO; MEAN CORPUSCULAR HEMOGLOBIN 31.5 pg (27.0-34.8); MEAN CORPUSCULAR HGB CONC 33.1 g/dL (32.4-35.8); MEAN PLATELET VOLUME 8.3 fL (7.4-10.4); MONOCYTES % (AUTO) 10 % (2-9); NEUTROPHILS % (AUTO) 70 % (42-75); PLATELET COUNT 302 x10^3/uL (130-400); RED CELL DISTRIBUTION WIDTH 12.7 % (9.6-15.2)
[2020-08-13 05:07] LABS: ANION GAP 2 mmol/L (5-15); CALCIUM 8.7 mg/dL (8.5-10.1); CHLORIDE 107 mmol/L (98-107); CREATININE 0.51 mg/dL (0.55-1.02)
[2020-08-13] MEDS: ASPIRIN 325 MG TABLET PO SCH (06:07)
[2020-08-13] MEDS: OXYcodone IR 5MG TABLET PO PRN ×3 (06:07→14:58)
[2020-08-13] MEDS: CARVEDILOL 3.125 MG TABLET PO SCH (06:08)
[2020-08-13] MEDS: OPIUM TINCTURE 1% 10 MG/ML ORAL.SOL PO SCH ×2 (08:20→15:46)
[2020-08-13] MEDS: FERROUS SULFATE 325 MG TABLET PO SCH (08:20)
[2020-08-13 08:39] VITALS: BP 95/69
[2020-08-13] MEDS: ONDANSETRON 2MG/ML, 2ML IVPush PRN (09:25)
[2020-08-13 13:45] VITALS: BP 96/63
[2020-08-13] MEDS ORDERED: FENT1PAT77 TD (15:20)
[2020-08-13] MEDS ORDERED: ESTR1PAT25 TD (15:21)
[2020-08-13] MEDS ORDERED: FERR324T5 PO (15:22)
[2020-08-13] MEDS ORDERED: OXYC5CAP2 PO (15:23)
[2020-08-13] MEDS ORDERED: [UNRECOGNIZED DRUG - OTHER] IV SCH (16:00)
[2020-08-13] MEDS ORDERED: SOY IV SCH (16:00)
[2020-08-13] MEDS ORDERED: AMINO ACIDS 10% IV SCH (16:00)
[2020-08-13] MEDS ORDERED: OLIV IV SCH (16:00)
[2020-08-13] MEDS ORDERED: MCT IV SCH (16:00)
[2020-08-13] MEDS ORDERED: FISH OIL IV SCH (16:00)
[2020-08-13] MEDS ORDERED: DEXTROSE 70% IV SCH (16:00)
[2020-08-13] MEDS ORDERED: FAT EMUL IV SCH (16:00)
== END 2020-08-13 16:10 | disposition home health service (06) | DRG 438 ==
LOC: ED 13:33 → 4NW 14:36 → ED 23:23
PROVIDERS: ADMIT Obstetrics & Gynecology; ATTEND Obstetrics & Gynecology
PROC: 0T9330Z Drainage of Right Kidney Pelvis with Drainage Device, Percutaneous Approach (ICD-10-PCS; principal; 2020-07-28)
PROC: BT121ZZ Fluoroscopy of Left Kidney using Low Osmolar Contrast (ICD-10-PCS; 2020-07-28)
DX: K85.30 Drug induced acute pancreatitis without necrosis or infection (principal); E43 Unspecified severe protein-calorie malnutrition; K65.9 Peritonitis, unspecified; Z68.1 Body mass index [BMI] 19.9 or less, adult; K31.84 Gastroparesis; I10 Essential (primary) hypertension; F41.1 Generalized anxiety disorder; D64.9 Anemia, unspecified; K82.8 Other specified diseases of gallbladder; R94.5 Abnormal results of liver function studies; R74.8 Abnormal levels of other serum enzymes; T50.995A Adverse effect of other drugs, medicaments and biological substances, initial encounter; Z90.710 Acquired absence of both cervix and uterus; Z87.440 Personal history of urinary (tract) infections; Z86.718 Personal history of other venous thrombosis and embolism; Z83.3 Family history of diabetes mellitus; Z82.49 Family history of ischemic heart disease and other diseases of the circulatory system; Y92.89 Other specified places as the place of occurrence of the external cause; Z68.20 Body mass index [BMI] 20.0-20.9, adult; Z93.6 Other artificial openings of urinary tract status; Z93.3 Colostomy status
CPT/HCPCS: 36415; 74018; 74240; 74248; 74425; 87106; 96361; 96374; 96375; 99285; J1955; J3475; 74181; 78227; 80048; 80053; 81001; 82103; 82104; 82390; 82728; 82784; 83516; 83540; 83550; 83605; 83690; 83735; 84100; 84134; 84439; 84443; 84478; 85025; 86038; 86039; 87040; 87086; 93005; G0378; J0610; J0696; J1170; J1885; J2020; J2405; J2997; Q9967; A9537; J1200; J2805; J7030; J7120

== ENCOUNTER 2020-08-17 05:53 | Inpatient (IN) | payer MEDICAID ==
[~2020-08-17] VITALS: Ht 144.8 cm; Wt 43.2 kg
[~2020-08-17 05:53] MED LIST changes: +ESTR1PAT25 TD; +FERR324T5 PO; +OXYC5CAP2 PO
[2020-08-17] MEDS ORDERED: CHLORHEXIDINE 15 ML UDC ONE (06:50)
[2020-08-17] MEDS ORDERED: FAMO10VI13 IV (06:53)
[2020-08-17] MEDS ORDERED: MIDAZOLAM 1 MG/ML, 2ML ONE (06:54)
[2020-08-17] MEDS ORDERED: FENTANYL PF 100 MCG/2ML ONE ×3 (06:54→09:37)
[2020-08-17 06:55] VITALS: BP 112/71
[2020-08-17] MEDS ORDERED: ROCURONIUM 10MG/ML,5ML ONE (06:56)
[2020-08-17] MEDS ORDERED: ONDANSETRON 2MG/ML, 2ML ONE (06:56)
[2020-08-17] MEDS ORDERED: CEFAZOLIN 1,000 MG ONE (06:56)
[2020-08-17] MEDS ORDERED: GLYCOPYRROLATE 0.2MG/1ML, 5ML ONE (06:56)
[2020-08-17] MEDS ORDERED: PROPOFOL 10 MG/ML, 20ML ONE (06:56)
[2020-08-17] MEDS ORDERED: SUCCINYLCHOLINE 20 MG/ML, 10ML ONE (06:56)
[2020-08-17] MEDS ORDERED: NEOSTIGMINE 1 MG/ML, 10ML ONE (06:56)
[2020-08-17] MEDS ORDERED: LACTATED RINGERS 1,000 ML IV SCH (07:00)
[2020-08-17] MEDS ORDERED: CHLORHEXIDINE 15 ML UDC PO ONE (07:00)
[2020-08-17] MEDS ORDERED: CARV3.122 PO (07:09)
[2020-08-17] MEDS ORDERED: ASPIRIN PO (07:09)
[2020-08-17] MEDS ORDERED: OPIU10TI2 PO (07:11)
[2020-08-17] MEDS ORDERED: ONDA-89 PO (07:11)
[2020-08-17] MEDS ORDERED: ESMOLOL 100 MG/10 ML ONE (07:43)
[2020-08-17] MEDS ORDERED: DEXAMETHASONE 4 MG/ML, 1ML ONE (07:43)
[2020-08-17] MEDS ORDERED: HYDROcodone/APAP 7.5-325MG/15ML UDC PO PRN (08:30)
[2020-08-17] MEDS ORDERED: OXYcodone 5 MG/5 ML ORAL.SOL UDC PO PRN (08:30)
[2020-08-17] MEDS ORDERED: EPINEPHRINE 1 MG/ML, 1ML ONE (08:30)
[2020-08-17] MEDS ORDERED: ONDANSETRON 2MG/ML, 2ML IVPush PRN (08:30)
[2020-08-17] MEDS ORDERED: PROMETHAZINE 25 MG/ML, 1ML IVPush PRN (08:30)
[2020-08-17] MEDS ORDERED: AMPICILLIN/SULBACTAM 3 GM in SODIUM CHLORIDE 0.9% 100 ML IV ONE (08:30)
[2020-08-17] MEDS ORDERED: BUPIVACAINE/PF 0.5% ONE (08:30)
[2020-08-17] MEDS ORDERED: MEPERIDINE/PF 25MG/0.5ML IVPush PRN (08:30)
[2020-08-17] MEDS ORDERED: FAMOTIDINE 20 MG/2 ML IVPush SCH (09:00)
[2020-08-17] MEDS ORDERED: LORazepam 0.5MG TABLET PO PRN (09:00)
[2020-08-17] MEDS ORDERED: SODIUM CHLORIDE 0.9% 1,000 ML IV SCH ×3 (09:00→17:00)
[2020-08-17] MEDS ORDERED: MEPERIDINE/PF 25MG/ML,1ML ONE (09:01)
[2020-08-17] MEDS: FENTANYL PF 100 MCG/2ML IV PRN ×7 (09:20→11:01)
[2020-08-17] MEDS ORDERED: HYDROmorphone 2 MG/ML, 1ML ONE (09:27)
[2020-08-17] MEDS: HYDROmorphone 1 MG/ML, 1ML INJ IVPush PRN ×4 (09:36→09:58)
[2020-08-17] MEDS ORDERED: PROMETHAZINE 25 MG/ML, 1ML ONE (10:20)
[2020-08-17] MEDS: ENOXAPARIN 40 MG/0.4 ML SQ SCH (10:54)
[2020-08-17] MEDS: CARVEDILOL 3.125 MG TABLET PO SCH ×2 (10:59→22:03)
[2020-08-17] MEDS: ONDANSETRON 4 MG TABLET PO SCH ×3 (11:00→22:02)
[2020-08-17] MEDS ORDERED: TPN PER PHARMACY MC PRN (11:00)
[2020-08-17] MEDS: OPIUM TINCTURE 1% 10 MG/ML ORAL.SOL PO SCH ×3 (11:00→22:03)
[2020-08-17] MEDS: DIPHENHYDRAMINE 50 MG/ML, 1ML IVPush PRN ×2 (11:07→23:25)
[2020-08-17] MEDS: HYDROmorphone 2 MG/ML, 1ML IVPush PRN ×5 (11:13→22:10)
[2020-08-17 11:52] LABS: ALANINE AMINOTRANSFERASE 97 U/L (12-78); ALBUMIN 2.7 g/dL (3.4-5.0); ANION GAP 6 mmol/L (5-15); CALCIUM 8.2 mg/dL (8.5-10.1); CHLORIDE 103 mmol/L (98-107)
[2020-08-17 11:55] LABS: ALKALINE PHOSPHATASE 297 U/L (45-117); BILIRUBIN,TOTAL 0.2 mg/dL (0.2-1.0); CREATININE 0.73 mg/dL (0.55-1.02); TOTAL PROTEIN 7.8 g/dL (6.4-8.2); TRIGLYCERIDES 136 mg/dL (50-200)
[2020-08-17] MEDS: LORazepam 2 MG/ML, 1ML IV PRN (11:56)
[2020-08-17] MEDS: CEFOTETAN PMX 1GM/50ML 50 ML IVPB SCH (12:40)
[2020-08-17] MEDS ORDERED: FILTER 1.2 MICRON IV PRN (15:00)
[2020-08-17 15:21] VITALS: BP 107/73
[2020-08-17] MEDS: [UNRECOGNIZED DRUG - OTHER] IV SCH (17:28)
[2020-08-17] MEDS: DEXTROSE 70% IV SCH (17:28)
[2020-08-17] MEDS: AMINO ACID 15% IV SCH (17:28)
[2020-08-17 19:23] VITALS: BP 103/65
[2020-08-18] MEDS: CEFOTETAN PMX 1GM/50ML 50 ML IVPB SCH (00:29)
[2020-08-18] MEDS: HYDROmorphone 2 MG/ML, 1ML IVPush PRN ×10 (00:30→22:34)
[2020-08-18 00:59] VITALS: BP 101/62
[2020-08-18] MEDS: ONDANSETRON 4 MG TABLET PO SCH ×4 (02:54→19:44)
[2020-08-18 03:43] LABS: BASOPHILS % (AUTO) 0 % (0-1); EOSINOPHILS % (AUTO) 0 % (1-7); LYMPHOCYTES % (AUTO) 8 % (22-44); MEAN CORPUSCULAR HEMOGLOBIN 32.1 pg (27.0-34.8); MEAN CORPUSCULAR HGB CONC 33.3 g/dL (32.4-35.8); MEAN PLATELET VOLUME 8.9 fL (7.4-10.4); MONOCYTES % (AUTO) 6 % (2-9); NEUTROPHILS % (AUTO) 86 % (42-75); PLATELET COUNT 285 x10^3/uL (130-400)
[2020-08-18 03:44] LABS: MD NO
[2020-08-18 03:55] LABS: ALBUMIN 2.6 g/dL (3.4-5.0); ANION GAP 4 mmol/L (5-15); CALCIUM 8.3 mg/dL (8.5-10.1); CHLORIDE 106 mmol/L (98-107); CREATININE 0.82 mg/dL (0.55-1.02)
[2020-08-18 04:01] LABS: PREALBUMIN 23.7 mg/dL (20.0-40.0); TRIGLYCERIDES 143 mg/dL (50-200)
[2020-08-18] MEDS: ASPIRIN 325 MG TABLET PO SCH (06:00)
[2020-08-18 07:32] VITALS: BP 95/62
[2020-08-18] MEDS: DIPHENHYDRAMINE 50 MG/ML, 1ML IVPush PRN ×3 (08:08→20:10)
[2020-08-18] MEDS: CARVEDILOL 3.125 MG TABLET PO SCH ×2 (08:38→19:44)
[2020-08-18] MEDS: OPIUM TINCTURE 1% 10 MG/ML ORAL.SOL PO SCH ×3 (08:39→19:44)
[2020-08-18] MEDS: FENTANYL 12 MCG PATCH TD SCH (08:40)
[2020-08-18] MEDS: FENTANYL REMOVE PATCH NOTE XX SCH (08:41)
[2020-08-18] MEDS: ENOXAPARIN 40 MG/0.4 ML SQ SCH (08:50)
[2020-08-18] MEDS ORDERED: ESTRADIOL 0.05 MG/24 HR PATCH TD SCH (09:00)
[2020-08-18] MEDS: OXYcodone 5 MG/5 ML ORAL.SOL UDC PO PRN ×2 (13:48→18:10)
[2020-08-18 14:17] VITALS: BP 103/68
[2020-08-18] MEDS ORDERED: SMOF TPN IV SCH ×2 (14:30→17:00)
[2020-08-18] MEDS ORDERED: DEXTROSE 70% IV SCH ×2 (14:30→17:00)
[2020-08-18] MEDS ORDERED: [UNRECOGNIZED DRUG - OTHER] IV SCH ×2 (14:30→17:00)
[2020-08-18] MEDS ORDERED: FAT EMUL IV SCH ×2 (14:30→17:00)
[2020-08-18] MEDS ORDERED: AMINO ACID 10% IV SCH ×2 (14:30→17:00)
[2020-08-18] MEDS: DEXTROSE 70% IV SCH (17:00)
[2020-08-18] MEDS ORDERED: FILTER, DISP 1.2 MICRON FOR TPN/PVN IV PRN (17:00)
[2020-08-18] MEDS: AMINO ACID 15% IV SCH (17:00)
[2020-08-18] MEDS: [UNRECOGNIZED DRUG - OTHER] IV SCH (17:00)
[2020-08-18 19:07] VITALS: BP 105/69
[2020-08-19 00:10] VITALS: BP 100/59
[2020-08-19] MEDS: ONDANSETRON 4 MG TABLET PO SCH ×4 (03:00→21:12)
[2020-08-19] MEDS: DIPHENHYDRAMINE 50 MG/ML, 1ML IVPush PRN ×3 (03:24→19:39)
[2020-08-19] MEDS: HYDROmorphone 2 MG/ML, 1ML IVPush PRN ×6 (03:25→21:12)
[2020-08-19] MEDS: ASPIRIN 325 MG TABLET PO SCH (05:42)
[2020-08-19 06:12] LABS: CHLORIDE 101 mmol/L (98-107)
[2020-08-19 06:26] LABS: ANION GAP 3 mmol/L (5-15); CALCIUM 8.4 mg/dL (8.5-10.1); CREATININE 0.57 mg/dL (0.55-1.02)
[2020-08-19 06:51] VITALS: BP 91/65
[2020-08-19] MEDS: OPIUM TINCTURE 1% 10 MG/ML ORAL.SOL PO SCH ×3 (09:01→21:12)
[2020-08-19] MEDS: CARVEDILOL 3.125 MG TABLET PO SCH ×2 (09:01→21:12)
[2020-08-19] MEDS: ENOXAPARIN 40 MG/0.4 ML SQ SCH (09:02)
[2020-08-19 12:49] VITALS: BP 109/71
[2020-08-19] MEDS ORDERED: FILTER, DISP 1.2 MICRON FOR TPN/PVN IV PRN (16:00)
[2020-08-19] MEDS ORDERED: SMOF TPN IV SCH (17:00)
[2020-08-19] MEDS ORDERED: FAT EMUL IV SCH (17:00)
[2020-08-19] MEDS ORDERED: DEXTROSE 70% IV SCH (17:00)
[2020-08-19] MEDS ORDERED: AMINO ACID 10% IV SCH (17:00)
[2020-08-19] MEDS ORDERED: [UNRECOGNIZED DRUG - OTHER] IV SCH (17:00)
[2020-08-19 18:35] VITALS: BP 101/68
[2020-08-19] MEDS: LORazepam 2 MG/ML, 1ML IV PRN (19:39)
[2020-08-19 21:10] VITALS: BP 99/66
[2020-08-20 00:33] VITALS: BP 99/63
[2020-08-20] MEDS: HYDROmorphone 2 MG/ML, 1ML IVPush PRN ×6 (01:10→23:24)
[2020-08-20] MEDS: DIPHENHYDRAMINE 50 MG/ML, 1ML IVPush PRN ×4 (01:46→21:22)
[2020-08-20] MEDS: ONDANSETRON 4 MG TABLET PO SCH ×4 (03:27→21:18)
[2020-08-20] MEDS: LORazepam 2 MG/ML, 1ML IV PRN ×2 (03:29→12:26)
[2020-08-20] MEDS: ASPIRIN 325 MG TABLET PO SCH (05:40)
[2020-08-20 06:02] LABS: CHLORIDE 104 mmol/L (98-107)
[2020-08-20 06:10] LABS: ANION GAP 3 mmol/L (5-15); CALCIUM 8.3 mg/dL (8.5-10.1)
[2020-08-20 06:50] VITALS: BP 104/73
[2020-08-20] MEDS: ENOXAPARIN 40 MG/0.4 ML SQ SCH (09:00)
[2020-08-20] MEDS: CARVEDILOL 3.125 MG TABLET PO SCH ×2 (09:38→21:18)
[2020-08-20] MEDS: OPIUM TINCTURE 1% 10 MG/ML ORAL.SOL PO SCH ×3 (09:39→21:17)
[2020-08-20 09:43] VITALS: BP 103/70
[2020-08-20 12:43] VITALS: BP 99/67
[2020-08-20] MEDS ORDERED: DEXTROSE 70% IV SCH (18:00)
[2020-08-20] MEDS ORDERED: SMOF TPN IV SCH (18:00)
[2020-08-20] MEDS ORDERED: FILTER, DISP 1.2 MICRON FOR TPN/PVN IV PRN (18:00)
[2020-08-20] MEDS ORDERED: AMINO ACID 10% IV SCH (18:00)
[2020-08-20] MEDS ORDERED: FAT EMUL IV SCH (18:00)
[2020-08-20] MEDS ORDERED: [UNRECOGNIZED DRUG - OTHER] IV SCH (18:00)
[2020-08-20] MEDS: OXYcodone 5 MG/5 ML ORAL.SOL UDC PO PRN (18:32)
[2020-08-20 19:51] VITALS: BP 102/68
[2020-08-21 01:09] VITALS: BP 101/66
[2020-08-21] MEDS: LORazepam 2 MG/ML, 1ML IV PRN ×2 (01:14→09:57)
[2020-08-21] MEDS: HYDROmorphone 2 MG/ML, 1ML IVPush PRN ×2 (03:18→08:11)
[2020-08-21] MEDS: ONDANSETRON 4 MG TABLET PO SCH ×2 (03:18→08:40)
[2020-08-21 04:17] VITALS: BP 101/62
[2020-08-21] MEDS: DIPHENHYDRAMINE 50 MG/ML, 1ML IVPush PRN ×2 (04:18→10:50)
[2020-08-21] MEDS: ASPIRIN 325 MG TABLET PO SCH (05:50)
[2020-08-21 06:09] LABS: ANION GAP 3 mmol/L (5-15); CALCIUM 8.3 mg/dL (8.5-10.1); CHLORIDE 107 mmol/L (98-107); CREATININE 0.63 mg/dL (0.55-1.02)
[2020-08-21] MEDS: OXYcodone 5 MG/5 ML ORAL.SOL UDC PO PRN ×2 (06:29→12:54)
[2020-08-21 07:07] VITALS: BP 102/70
[2020-08-21] MEDS: ENOXAPARIN 40 MG/0.4 ML SQ SCH (08:38)
[2020-08-21] MEDS: FENTANYL 12 MCG PATCH TD SCH (08:39)
[2020-08-21] MEDS: OPIUM TINCTURE 1% 10 MG/ML ORAL.SOL PO SCH (08:39)
[2020-08-21] MEDS: CARVEDILOL 3.125 MG TABLET PO SCH (08:40)
[2020-08-21] MEDS: FENTANYL REMOVE PATCH NOTE XX SCH (09:00)
[2020-08-21 12:44] VITALS: BP 105/72
== END 2020-08-21 13:57 | disposition home or self-care (01) | DRG 416 ==
LOC: ORIP 05:53 → 4NW 10:43
PROVIDERS: ADMIT Surgery; ATTEND Surgery
PROC: 0FT40ZZ Resection of Gallbladder, Open Approach (ICD-10-PCS; principal; 2020-08-17 07:30)
DX: K85.10 Biliary acute pancreatitis without necrosis or infection (principal); K82.8 Other specified diseases of gallbladder
CPT/HCPCS: 36415; J1955; J3475; S0020; 80048; 80053; 82040; 83735; 84100; 84134; 84478; 85025; 86850; 86870; 86880; 86900; 86902; 86922; 86923; 87635; 88304; C1729; G0378; J0171; J0610; J0690; J1100; J1170; J1650; J2175; J2250; J2405; J2550; J2704; J2710; J3010; Q0162; J0330; J1200; J2060; J3420; J7120

== ENCOUNTER 2020-08-22 09:27 | Inpatient (IN) | payer MEDICAID ==
[~2020-08-22] VITALS: Ht 144.8 cm; Wt 43.4 kg
[~2020-08-22 09:27] MED LIST changes: +ASPIRIN PO; +CARV3.122 PO; +FAMO10VI13 IV; -LACT1CAP37 PO; +LACT1CAP47 PO; +ONDA-89 PO
[2020-08-22] MEDS ORDERED: SODIUM CHLORIDE 0.9% 1,000ML IVBOLUS ONE (10:00)
[2020-08-22] MEDS ORDERED: HYDROmorphone 1 MG/ML, 1ML INJ IV ONE ×2 (10:00→12:30)
[2020-08-22] MEDS ORDERED: ONDANSETRON 2MG/ML, 2ML IVPush ONE (10:00)
[2020-08-22] MEDS ORDERED: SODIUM CHLORIDE FLUSH 10ML SYR IVF ONE (10:00)
[2020-08-22] MEDS ORDERED: HYDROmorphone 1 MG/ML, 1ML INJ ONE ×2 (10:35→12:11)
[2020-08-22] MEDS ORDERED: ONDANSETRON 2MG/ML, 2ML ONE (10:35)
[2020-08-22 10:49] LABS: BASOPHILS % (AUTO) 1 % (0-1); EOSINOPHILS % (AUTO) 1 % (1-7); LYMPHOCYTES % (AUTO) 9 % (22-44); MEAN CORPUSCULAR HEMOGLOBIN 31.6 pg (27.0-34.8); MEAN CORPUSCULAR HGB CONC 33.8 g/dL (32.4-35.8); MEAN PLATELET VOLUME 9.1 fL (7.4-10.4); MONOCYTES % (AUTO) 8 % (2-9); NEUTROPHILS % (AUTO) 82 % (42-75); PLATELET COUNT 375 x10^3/uL (130-400); RED CELL DISTRIBUTION WIDTH 13.1 % (9.6-15.2)
[2020-08-22] MEDS ORDERED: OMNIPAQUE 350 MG/ML, 100ML BOTTLE ONE (10:50)
[2020-08-22 10:53] LABS: MD NO
[2020-08-22 10:58] LABS: ALANINE AMINOTRANSFERASE 69 U/L (12-78); ALBUMIN 2.8 g/dL (3.4-5.0); ANION GAP 6 mmol/L (5-15); CHLORIDE 102 mmol/L (98-107); CREATININE 0.82 mg/dL (0.55-1.02)
[2020-08-22 11:02] LABS: ALKALINE PHOSPHATASE 432 U/L (45-117); BILIRUBIN,TOTAL 0.2 mg/dL (0.2-1.0); TOTAL PROTEIN 8.7 g/dL (6.4-8.2)
--- NOTE | 2020-08-22 11:22 | NUR ---
PATIENT RESTING IN CESAR AC, VSS, FAMILY AT BEDSIDE, CALL LIGHT WITHIN REACH. WAITING FOR ABD CT RESULTS.
[2020-08-22 11:24] LABS: MICROSCOPIC INDICATED
--- NOTE | 2020-08-22 12:21 | NUR ---
dr nicolas spoke with dr caldera
--- NOTE | 2020-08-22 12:29 | NUR ---
dr nicolas spoke with dr ho with [facility] [address]
[2020-08-22] MEDS ORDERED: SODIUM CHLORIDE FLUSH 10ML SYR IVF PRN (14:30)
--- NOTE | 2020-08-22 14:39 | NUR ---
PATIENT RESTING IN CESAR AC VSS, FAMILY AT BEDSIDE, CALL LIGHT WITHIN REACH. WAITING FOR ROOM ASSIGNMENT UPSTAIRS.
[2020-08-22 15:48] VITALS: BP 96/64
[2020-08-22 15:54] VITALS: BP 96/64
[2020-08-22] MEDS: HYDROmorphone 1 MG/ML, 1ML INJ IV PRN ×2 (16:53→18:34)
[2020-08-22] MEDS ORDERED: FENTANYL 12 MCG PATCH TD SCH (18:00)
[2020-08-22] MEDS ORDERED: ACETAMINOPHEN 325 MG TABLET PO PRN (18:00)
[2020-08-22] MEDS ORDERED: ONDANSETRON 2MG/ML, 2ML IVPush PRN (18:00)
[2020-08-22] MEDS ORDERED: TPN PER PHARMACY MC PRN (18:00)
[2020-08-22] MEDS ORDERED: ESTRADIOL 0.05 MG/24 HR PATCH TD SCH (18:00)
[2020-08-22] MEDS ORDERED: D5%-LR+KCL 20MEQ 1,000 ML IV SCH (18:00)
[2020-08-22] MEDS ORDERED: OXYcodone IR 5MG TABLET PO PRN (18:00)
[2020-08-22 20:13] VITALS: BP 115/81
[2020-08-22 20:16] LABS: MICROSCOPIC INDICATED
[2020-08-22] MEDS: DIPHENHYDRAMINE 50 MG/ML, 1ML IVPush SCH (20:18)
[2020-08-22] MEDS: FAMOTIDINE 20 MG/2 ML IVPush SCH (20:19)
[2020-08-22 21:02] LABS: MICROSCOPIC INDICATED
[2020-08-22] MEDS: CEFTRIAXONE 1,000 MG in DEXTROSE 5% 50 ML IVPB SCH (21:14)
[2020-08-22] MEDS: HYDROmorphone 2 MG/ML, 1ML IVPush PRN (21:31)
[2020-08-23] MEDS: DIPHENHYDRAMINE 50 MG/ML, 1ML IVPush SCH ×4 (00:28→18:58)
[2020-08-23] MEDS: HYDROmorphone 2 MG/ML, 1ML IVPush PRN ×8 (00:29→22:04)
[2020-08-23 00:43] VITALS: BP 113/76
[2020-08-23 06:06] LABS: BASOPHILS % (AUTO) 0 % (0-1); EOSINOPHILS % (AUTO) 5 % (1-7); LYMPHOCYTES % (AUTO) 18 % (22-44); MEAN CORPUSCULAR HEMOGLOBIN 32.1 pg (27.0-34.8); MEAN PLATELET VOLUME 9.1 fL (7.4-10.4); MONOCYTES % (AUTO) 15 % (2-9); NEUTROPHILS % (AUTO) 62 % (42-75); PLATELET COUNT 281 x10^3/uL (130-400); RED BLOOD COUNT 2.67 x10^6/uL (3.82-5.3); RED CELL DISTRIBUTION WIDTH 12.9 % (9.6-15.2)
[2020-08-23 06:09] LABS: MD NO
[2020-08-23 06:12] LABS: ALBUMIN 2.3 g/dL (3.4-5.0); ANION GAP 4 mmol/L (5-15); CHLORIDE 103 mmol/L (98-107)
[2020-08-23 06:23] LABS: ALANINE AMINOTRANSFERASE 86 U/L (12-78); ALKALINE PHOSPHATASE 373 U/L (45-117); BILIRUBIN,TOTAL 0.2 mg/dL (0.2-1.0); CHOL/HDL RATIO 6.5; CHOLESTEROL, TOTAL 104 mg/dL (140-239); CREATININE 0.67 mg/dL (0.55-1.02); HDL CHOL % 15 % (28-40); HDL CHOLESTEROL (DIRECT) 16 mg/dL (40-60); LDL CHOLESTEROL,CALCULATED 48 mg/dL (54-169); TOTAL PROTEIN 6.9 g/dL (6.4-8.2); TRIGLYCERIDES 202 mg/dL (50-200); VLDL CHOLESTEROL 40 mg/dL (0-25)
[2020-08-23 08:49] VITALS: BP 98/51
[2020-08-23] MEDS: FAMOTIDINE 20 MG/2 ML IVPush SCH (09:27)
[2020-08-23] MEDS ORDERED: D5%-LR+KCL 20MEQ 1,000 ML IV SCH (12:00)
[2020-08-23 14:01] VITALS: BP 96/64
[2020-08-23] MEDS ORDERED: [UNRECOGNIZED DRUG - OTHER] IV SCH (17:00)
[2020-08-23] MEDS ORDERED: DEXTROSE 70% IV SCH (17:00)
[2020-08-23] MEDS ORDERED: FAT EMUL IV SCH (17:00)
[2020-08-23] MEDS ORDERED: SMOF TPN IV SCH (17:00)
[2020-08-23] MEDS ORDERED: AMINO ACID 10% IV SCH (17:00)
[2020-08-23] MEDS ORDERED: D5%-LACTATED RINGERS 1,000 ML IV SCH (17:00)
[2020-08-23] MEDS: FILTER, DISP 1.2 MICRON FOR TPN/PVN IV PRN (18:09)
[2020-08-23 19:27] VITALS: BP 94/63
[2020-08-23] MEDS: CEFTRIAXONE 1,000 MG in DEXTROSE 5% 50 ML IVPB SCH (22:33)
[2020-08-24] MEDS: DIPHENHYDRAMINE 50 MG/ML, 1ML IVPush SCH ×4 (00:04→18:18)
[2020-08-24 00:06] VITALS: BP 104/81
[2020-08-24] MEDS: HYDROmorphone 2 MG/ML, 1ML IVPush PRN ×5 (01:32→20:45)
[2020-08-24 06:00] LABS: BASOPHILS % (AUTO) 1 % (0-1); EOSINOPHILS % (AUTO) 6 % (1-7); LYMPHOCYTES % (AUTO) 19 % (22-44); MEAN CORPUSCULAR HEMOGLOBIN 31.9 pg (27.0-34.8); MEAN CORPUSCULAR HGB CONC 33.7 g/dL (32.4-35.8); MEAN PLATELET VOLUME 8.6 fL (7.4-10.4); MONOCYTES % (AUTO) 15 % (2-9); NEUTROPHILS % (AUTO) 60 % (42-75); PLATELET COUNT 322 x10^3/uL (130-400); RED BLOOD COUNT 2.81 x10^6/uL (3.82-5.3); RED CELL DISTRIBUTION WIDTH 12.5 % (9.6-15.2)
[2020-08-24 06:01] LABS: MD NO
[2020-08-24 06:13] LABS: ANION GAP 6 mmol/L (5-15); CALCIUM 8.5 mg/dL (8.5-10.1); CHLORIDE 104 mmol/L (98-107); CREATININE 0.63 mg/dL (0.55-1.02)
[2020-08-24 06:16] LABS: PREALBUMIN 17.9 mg/dL (20.0-40.0)
[2020-08-24 07:21] VITALS: BP 99/64
[2020-08-24 12:24] VITALS: BP 91/57
[2020-08-24] MEDS ORDERED: DEXTROSE 70% IV SCH (17:00)
[2020-08-24] MEDS ORDERED: AMINO ACID 10% IV SCH (17:00)
[2020-08-24] MEDS ORDERED: SMOF TPN IV SCH (17:00)
[2020-08-24] MEDS ORDERED: [UNRECOGNIZED DRUG - OTHER] IV SCH (17:00)
[2020-08-24] MEDS ORDERED: FAT EMUL IV SCH (17:00)
[2020-08-24 18:37] VITALS: BP 96/65
[2020-08-24] MEDS ORDERED: FENTANYL REMOVE PATCH NOTE XX SCH (20:29)
[2020-08-24] MEDS: FENTANYL 12 MCG PATCH TD SCH (20:46)
[2020-08-24] MEDS: CEFTRIAXONE 1,000 MG in DEXTROSE 5% 50 ML IVPB SCH (22:51)
[2020-08-25] MEDS: DIPHENHYDRAMINE 50 MG/ML, 1ML IVPush SCH ×5 (00:02→23:49)
[2020-08-25] MEDS: HYDROmorphone 2 MG/ML, 1ML IVPush PRN ×7 (00:03→18:41)
[2020-08-25 00:20] VITALS: BP 108/77
[2020-08-25 06:07] LABS: CHLORIDE 103 mmol/L (98-107)
[2020-08-25 06:17] LABS: ANION GAP 7 mmol/L (5-15); CALCIUM 8.7 mg/dL (8.5-10.1); CREATININE 0.65 mg/dL (0.55-1.02)
[2020-08-25 07:56] VITALS: BP 97/60
[2020-08-25 14:35] VITALS: BP 115/73
[2020-08-25] MEDS: MICAFUNGIN 100 MG in SODIUM CHLORIDE 0.9% 100 ML IV SCH (15:48)
[2020-08-25] MEDS ORDERED: SMOF TPN IV SCH (17:00)
[2020-08-25] MEDS ORDERED: FAT EMUL IV SCH (17:00)
[2020-08-25] MEDS ORDERED: [UNRECOGNIZED DRUG - OTHER] IV SCH (17:00)
[2020-08-25] MEDS ORDERED: AMINO ACID 10% IV SCH (17:00)
[2020-08-25] MEDS ORDERED: DEXTROSE 70% IV SCH (17:00)
[2020-08-25] MEDS: FILTER, DISP 1.2 MICRON FOR TPN/PVN IV PRN (17:37)
[2020-08-25] MEDS: ESTRADIOL 0.05 MG/24 HR PATCH TD SCH (17:38)
[2020-08-25] MEDS ORDERED: FENTANYL REMOVE PATCH NOTE XX SCH (18:00)
[2020-08-25] MEDS ORDERED: ONDANSETRON ODT 4 MG PO PRN (19:30)
[2020-08-25] MEDS: PIPERACILLIN/TAZO 3.375 GM in DEXTROSE 5% 50 ML IV SCH (19:38)
[2020-08-25 19:49] VITALS: BP 101/78
[2020-08-26 00:40] VITALS: BP 100/69
[2020-08-26] MEDS: HYDROmorphone 2 MG/ML, 1ML IVPush PRN ×7 (00:48→21:30)
[2020-08-26] MEDS: PIPERACILLIN/TAZO 3.375 GM in DEXTROSE 5% 50 ML IV SCH ×4 (01:34→18:37)
[2020-08-26] MEDS: DIPHENHYDRAMINE 50 MG/ML, 1ML IVPush SCH ×3 (05:32→17:46)
[2020-08-26 05:44] LABS: BASOPHILS % (AUTO) 1 % (0-1); EOSINOPHILS % (AUTO) 5 % (1-7); LYMPHOCYTES % (AUTO) 14 % (22-44); MEAN CORPUSCULAR HEMOGLOBIN 32.4 pg (27.0-34.8); MEAN CORPUSCULAR HGB CONC 34.3 g/dL (32.4-35.8); MEAN PLATELET VOLUME 8.7 fL (7.4-10.4); MONOCYTES % (AUTO) 14 % (2-9); NEUTROPHILS % (AUTO) 67 % (42-75); PLATELET COUNT 368 x10^3/uL (130-400); RED BLOOD COUNT 2.88 x10^6/uL (3.82-5.3); RED CELL DISTRIBUTION WIDTH 12.5 % (9.6-15.2)
[2020-08-26 05:45] LABS: MD NO
[2020-08-26 05:56] LABS: ANION GAP 5 mmol/L (5-15); CALCIUM 8.6 mg/dL (8.5-10.1); CHLORIDE 100 mmol/L (98-107); CREATININE 0.69 mg/dL (0.55-1.02)
[2020-08-26 07:21] VITALS: BP 96/69
[2020-08-26 13:56] VITALS: BP 86/57
[2020-08-26] MEDS: LORazepam 2 MG/ML, 1ML IVPush PRN (14:11)
[2020-08-26] MEDS ORDERED: DEXTROSE 70% IV SCH (17:00)
[2020-08-26] MEDS ORDERED: [UNRECOGNIZED DRUG - OTHER] IV SCH (17:00)
[2020-08-26] MEDS ORDERED: SMOF TPN IV SCH (17:00)
[2020-08-26] MEDS ORDERED: FAT EMUL IV SCH (17:00)
[2020-08-26] MEDS ORDERED: AMINO ACID 10% IV SCH (17:00)
[2020-08-26] MEDS: MICAFUNGIN 100 MG in SODIUM CHLORIDE 0.9% 100 ML IV SCH (17:29)
[2020-08-26] MEDS: FILTER, DISP 1.2 MICRON FOR TPN/PVN IV PRN (17:46)
[2020-08-26 20:05] VITALS: BP 95/62
[2020-08-27] MEDS: DIPHENHYDRAMINE 50 MG/ML, 1ML IVPush SCH ×4 (00:50→18:02)
[2020-08-27] MEDS: PIPERACILLIN/TAZO 3.375 GM in DEXTROSE 5% 50 ML IV SCH ×3 (00:50→13:59)
[2020-08-27 01:00] VITALS: BP 111/76
[2020-08-27] MEDS: HYDROmorphone 2 MG/ML, 1ML IVPush PRN ×6 (01:49→22:09)
[2020-08-27] MEDS: LORazepam 2 MG/ML, 1ML IVPush PRN ×2 (06:12→13:13)
[2020-08-27 06:18] LABS: BASOPHILS % (AUTO) 1 % (0-1); EOSINOPHILS % (AUTO) 5 % (1-7); LYMPHOCYTES % (AUTO) 11 % (22-44); MEAN CORPUSCULAR HEMOGLOBIN 31.7 pg (27.0-34.8); MEAN CORPUSCULAR HGB CONC 33.8 g/dL (32.4-35.8); MEAN PLATELET VOLUME 8.5 fL (7.4-10.4); MONOCYTES % (AUTO) 11 % (2-9); NEUTROPHILS % (AUTO) 72 % (42-75); PLATELET COUNT 379 x10^3/uL (130-400); RED BLOOD COUNT 3.02 x10^6/uL (3.82-5.3); RED CELL DISTRIBUTION WIDTH 12.7 % (9.6-15.2)
[2020-08-27 06:19] LABS: MD NO
[2020-08-27 06:26] LABS: ANION GAP 4 mmol/L (5-15); CALCIUM 8.6 mg/dL (8.5-10.1); CHLORIDE 104 mmol/L (98-107); CREATININE 0.71 mg/dL (0.55-1.02)
[2020-08-27 07:32] VITALS: BP 103/72
[2020-08-27 13:37] VITALS: BP 87/51
[2020-08-27] MEDS ORDERED: SODIUM CHLORIDE 0.9%, 500ML IVBOLUS ONE (15:30)
[2020-08-27] MEDS: SODIUM CHLORIDE 0.9% 1,000 ML IV SCH (16:01)
[2020-08-27] MEDS: AMPICILLIN/SULBACTAM 3 GM in SODIUM CHLORIDE 0.9% 100 ML IV SCH ×2 (16:01→22:03)
[2020-08-27] MEDS: SULFAMETH./TRIMETHOPRIM DS 800MG/160MG TABLET PO SCH ×2 (16:02→20:04)
[2020-08-27] MEDS ORDERED: [UNRECOGNIZED DRUG - OTHER] IV SCH (17:00)
[2020-08-27] MEDS ORDERED: SMOF TPN IV SCH (17:00)
[2020-08-27] MEDS ORDERED: AMINO ACID 10% IV SCH (17:00)
[2020-08-27] MEDS ORDERED: FAT EMUL IV SCH (17:00)
[2020-08-27] MEDS ORDERED: DEXTROSE 70% IV SCH (17:00)
[2020-08-27] MEDS: MICAFUNGIN 100 MG in SODIUM CHLORIDE 0.9% 100 ML IV SCH (18:03)
[2020-08-27 19:38] VITALS: BP 92/64
[2020-08-27] MEDS: FENTANYL REMOVE PATCH NOTE XX SCH (19:59)
[2020-08-27] MEDS: FENTANYL 12 MCG PATCH TD SCH (19:59)
[2020-08-28 00:01] VITALS: BP 105/72
[2020-08-28] MEDS: DIPHENHYDRAMINE 50 MG/ML, 1ML IVPush SCH ×4 (00:05→18:35)
[2020-08-28] MEDS: HYDROmorphone 2 MG/ML, 1ML IVPush PRN ×7 (01:13→22:18)
[2020-08-28] MEDS: AMPICILLIN/SULBACTAM 3 GM in SODIUM CHLORIDE 0.9% 100 ML IV SCH ×4 (04:14→22:13)
[2020-08-28] MEDS: SODIUM CHLORIDE 0.9% 1,000 ML IV SCH ×2 (06:18→17:40)
[2020-08-28 06:31] LABS: ANION GAP 4 mmol/L (5-15); CHLORIDE 107 mmol/L (98-107); CREATININE 0.57 mg/dL (0.55-1.02)
[2020-08-28 07:54] VITALS: BP 92/49
[2020-08-28] MEDS: SULFAMETH./TRIMETHOPRIM DS 800MG/160MG TABLET PO SCH ×2 (09:00→20:47)
[2020-08-28 13:11] VITALS: BP 105/67
[2020-08-28] MEDS ORDERED: DEXTROSE 70% IV SCH ×2 (17:00)
[2020-08-28] MEDS ORDERED: [UNRECOGNIZED DRUG - OTHER] IV SCH (17:00)
[2020-08-28] MEDS ORDERED: AMINO ACID 10% IV SCH ×2 (17:00)
[2020-08-28] MEDS ORDERED: SMOF TPN IV SCH ×2 (17:00)
[2020-08-28] MEDS ORDERED: [UNRECOGNIZED DRUG - OTHER] IV SCH (17:00)
[2020-08-28] MEDS ORDERED: FAT EMUL IV SCH ×2 (17:00)
[2020-08-28] MEDS: MICAFUNGIN 100 MG in SODIUM CHLORIDE 0.9% 100 ML IV SCH (17:39)
[2020-08-28 19:18] VITALS: BP 106/70
[2020-08-29] MEDS: DIPHENHYDRAMINE 50 MG/ML, 1ML IVPush SCH ×4 (00:04→17:36)
[2020-08-29 00:05] VITALS: BP 110/76
[2020-08-29] MEDS: HYDROmorphone 2 MG/ML, 1ML IVPush PRN ×8 (01:20→23:15)
[2020-08-29] MEDS: AMPICILLIN/SULBACTAM 3 GM in SODIUM CHLORIDE 0.9% 100 ML IV SCH ×4 (04:02→22:07)
[2020-08-29 06:08] LABS: ANION GAP 5 mmol/L (5-15); CALCIUM 8.6 mg/dL (8.5-10.1); CHLORIDE 105 mmol/L (98-107); CREATININE 0.58 mg/dL (0.55-1.02)
[2020-08-29 08:43] VITALS: BP 98/73
[2020-08-29] MEDS: SULFAMETH./TRIMETHOPRIM DS 800MG/160MG TABLET PO SCH ×2 (09:13→19:45)
[2020-08-29] MEDS: SODIUM CHLORIDE 0.9% 1,000 ML IV SCH ×2 (09:14→21:50)
[2020-08-29 13:57] VITALS: BP 107/71
[2020-08-29] MEDS: FILTER, DISP 1.2 MICRON FOR TPN/PVN IV PRN (16:21)
[2020-08-29] MEDS ORDERED: AMINO ACID 10% IV SCH (17:00)
[2020-08-29] MEDS ORDERED: SMOF TPN IV SCH (17:00)
[2020-08-29] MEDS ORDERED: [UNRECOGNIZED DRUG - OTHER] IV SCH (17:00)
[2020-08-29] MEDS ORDERED: FAT EMUL IV SCH (17:00)
[2020-08-29] MEDS ORDERED: DEXTROSE 70% IV SCH (17:00)
[2020-08-29] MEDS: MICAFUNGIN 100 MG in SODIUM CHLORIDE 0.9% 100 ML IV SCH (18:27)
[2020-08-29 18:49] VITALS: BP 115/75
[2020-08-30] MEDS: DIPHENHYDRAMINE 50 MG/ML, 1ML IVPush SCH ×4 (00:01→17:45)
[2020-08-30 02:54] VITALS: BP 110/70
[2020-08-30] MEDS: HYDROmorphone 2 MG/ML, 1ML IVPush PRN ×7 (03:06→22:08)
[2020-08-30] MEDS: AMPICILLIN/SULBACTAM 3 GM in SODIUM CHLORIDE 0.9% 100 ML IV SCH (03:55)
[2020-08-30 05:02] LABS: ALBUMIN 2.2 g/dL (3.4-5.0); ANION GAP 4 mmol/L (5-15); CHLORIDE 107 mmol/L (98-107)
[2020-08-30 05:10] LABS: ALANINE AMINOTRANSFERASE 79 U/L (12-78); ALKALINE PHOSPHATASE 355 U/L (45-117); BILIRUBIN,TOTAL 0.2 mg/dL (0.2-1.0); CALCIUM 8.4 mg/dL (8.5-10.1); CREATININE 0.57 mg/dL (0.55-1.02); PREALBUMIN 19.5 mg/dL (20.0-40.0); TOTAL PROTEIN 7.4 g/dL (6.4-8.2); TRIGLYCERIDES 186 mg/dL (50-200)
[2020-08-30 07:03] VITALS: BP 120/81
[2020-08-30] MEDS: SULFAMETH./TRIMETHOPRIM DS 800MG/160MG TABLET PO SCH ×2 (09:30→19:59)
[2020-08-30] MEDS: AMPICILLIN 500MG CAPSULE PO SCH ×3 (11:43→19:59)
[2020-08-30] MEDS: SODIUM CHLORIDE 0.9% 1,000 ML IV SCH (11:44)
[2020-08-30 14:12] VITALS: BP 112/75
[2020-08-30] MEDS ORDERED: [UNRECOGNIZED DRUG - OTHER] IV SCH (17:00)
[2020-08-30] MEDS ORDERED: AMINO ACID 10% IV SCH (17:00)
[2020-08-30] MEDS ORDERED: DEXTROSE 70% IV SCH (17:00)
[2020-08-30] MEDS ORDERED: SMOF TPN IV SCH (17:00)
[2020-08-30] MEDS ORDERED: FAT EMUL IV SCH (17:00)
[2020-08-30] MEDS: MICAFUNGIN 100 MG in SODIUM CHLORIDE 0.9% 100 ML IV SCH (17:24)
[2020-08-30 19:36] VITALS: BP 106/70
[2020-08-30] MEDS: FENTANYL 12 MCG PATCH TD SCH (19:59)
[2020-08-30] MEDS: FENTANYL REMOVE PATCH NOTE XX SCH (19:59)
[2020-08-31] MEDS: DIPHENHYDRAMINE 50 MG/ML, 1ML IVPush SCH ×5 (00:14→23:33)
[2020-08-31 00:55] VITALS: BP 112/74
[2020-08-31] MEDS: HYDROmorphone 2 MG/ML, 1ML IVPush PRN ×6 (02:05→21:20)
[2020-08-31] MEDS: SODIUM CHLORIDE 0.9% 1,000 ML IV SCH ×2 (02:09→13:59)
[2020-08-31] MEDS: AMPICILLIN 500MG CAPSULE PO SCH ×4 (05:51→23:02)
[2020-08-31 06:10] LABS: BASOPHILS % (AUTO) 1 % (0-1); EOSINOPHILS % (AUTO) 4 % (1-7); LYMPHOCYTES % (AUTO) 19 % (22-44); MEAN CORPUSCULAR HEMOGLOBIN 31.6 pg (27.0-34.8); MEAN CORPUSCULAR HGB CONC 33.8 g/dL (32.4-35.8); MEAN PLATELET VOLUME 8.5 fL (7.4-10.4); MONOCYTES % (AUTO) 8 % (2-9); NEUTROPHILS % (AUTO) 68 % (42-75); PLATELET COUNT 343 x10^3/uL (130-400); RED BLOOD COUNT 2.87 x10^6/uL (3.82-5.3); RED CELL DISTRIBUTION WIDTH 12.8 % (9.6-15.2)
[2020-08-31 06:15] LABS: CHLORIDE 106 mmol/L (98-107)
[2020-08-31 06:17] LABS: MD NO
[2020-08-31 06:23] LABS: ALANINE AMINOTRANSFERASE 81 U/L (12-78); ALBUMIN 2.3 g/dL (3.4-5.0); ALKALINE PHOSPHATASE 359 U/L (45-117); ANION GAP 4 mmol/L (5-15); BILIRUBIN,TOTAL 0.1 mg/dL (0.2-1.0); CALCIUM 8.4 mg/dL (8.5-10.1); CREATININE 0.56 mg/dL (0.55-1.02); TOTAL PROTEIN 7.6 g/dL (6.4-8.2)
[2020-08-31 06:49] VITALS: BP 120/80
[2020-08-31] MEDS: SULFAMETH./TRIMETHOPRIM DS 800MG/160MG TABLET PO SCH ×2 (10:26→22:10)
[2020-08-31 14:21] VITALS: BP 122/81
[2020-08-31] MEDS: FILTER, DISP 1.2 MICRON FOR TPN/PVN IV PRN (16:59)
[2020-08-31] MEDS ORDERED: AMINO ACID 10% IV SCH (17:00)
[2020-08-31] MEDS ORDERED: SMOF TPN IV SCH (17:00)
[2020-08-31] MEDS ORDERED: DEXTROSE 70% IV SCH (17:00)
[2020-08-31] MEDS ORDERED: FAT EMUL IV SCH (17:00)
[2020-08-31] MEDS ORDERED: [UNRECOGNIZED DRUG - OTHER] IV SCH (17:00)
[2020-08-31] MEDS: MICAFUNGIN 100 MG in SODIUM CHLORIDE 0.9% 100 ML IV SCH (17:05)
[2020-08-31 18:22] VITALS: BP 117/82
[2020-09-01 00:01] VITALS: BP 106/68
[2020-09-01] MEDS: HYDROmorphone 2 MG/ML, 1ML IVPush PRN ×8 (00:28→23:09)
[2020-09-01] MEDS: SODIUM CHLORIDE 0.9% 1,000 ML IV SCH ×2 (03:10→16:16)
[2020-09-01] MEDS: AMPICILLIN 500MG CAPSULE PO SCH ×4 (05:10→22:06)
[2020-09-01] MEDS: DIPHENHYDRAMINE 50 MG/ML, 1ML IVPush SCH ×4 (06:21→23:09)
[2020-09-01 06:38] VITALS: BP 117/76
[2020-09-01 06:56] LABS: ANION GAP 6 mmol/L (5-15); CALCIUM 8.4 mg/dL (8.5-10.1); CHLORIDE 105 mmol/L (98-107)
[2020-09-01] MEDS ORDERED: DEXTROSE 70% IV SCH ×2 (09:00→17:00)
[2020-09-01] MEDS ORDERED: [UNRECOGNIZED DRUG - OTHER] IV SCH ×2 (09:00→17:00)
[2020-09-01] MEDS ORDERED: AMINO ACID 10% IV SCH ×2 (09:00→17:00)
[2020-09-01] MEDS ORDERED: FAT EMUL IV SCH ×2 (09:00→17:00)
[2020-09-01] MEDS ORDERED: SMOF TPN IV SCH ×2 (09:00→17:00)
[2020-09-01] MEDS: SULFAMETH./TRIMETHOPRIM DS 800MG/160MG TABLET PO SCH ×2 (09:29→21:06)
[2020-09-01 12:51] VITALS: BP 118/83
[2020-09-01] MEDS: MICAFUNGIN 100 MG in SODIUM CHLORIDE 0.9% 100 ML IV SCH (15:23)
[2020-09-01] MEDS ORDERED: FILTER, DISP 1.2 MICRON FOR TPN/PVN IV PRN (17:00)
[2020-09-01] MEDS: ESTRADIOL 0.05 MG/24 HR PATCH TD SCH (17:54)
[2020-09-01 19:35] VITALS: BP 110/75
[2020-09-02 03:34] VITALS: BP 108/68
[2020-09-02] MEDS: HYDROmorphone 2 MG/ML, 1ML IVPush PRN ×6 (03:56→22:14)
[2020-09-02] MEDS: SODIUM CHLORIDE 0.9% 1,000 ML IV SCH ×2 (05:50→19:10)
[2020-09-02] MEDS: AMPICILLIN 500MG CAPSULE PO SCH ×4 (05:54→23:20)
[2020-09-02] MEDS: DIPHENHYDRAMINE 50 MG/ML, 1ML IVPush SCH ×4 (05:54→23:21)
[2020-09-02 06:27] LABS: ANION GAP 5 mmol/L (5-15); CALCIUM 8.5 mg/dL (8.5-10.1); CHLORIDE 106 mmol/L (98-107); CREATININE 0.58 mg/dL (0.55-1.02)
[2020-09-02 07:45] VITALS: BP 113/78
[2020-09-02] MEDS: SULFAMETH./TRIMETHOPRIM DS 800MG/160MG TABLET PO SCH ×2 (08:30→21:03)
[2020-09-02 13:05] VITALS: BP 100/63
[2020-09-02] MEDS: MICAFUNGIN 100 MG in SODIUM CHLORIDE 0.9% 100 ML IV SCH (15:38)
[2020-09-02] MEDS ORDERED: FILTER, DISP 1.2 MICRON FOR TPN/PVN IV PRN (17:00)
[2020-09-02] MEDS: [UNRECOGNIZED DRUG - OTHER] IV SCH (17:35)
[2020-09-02] MEDS: AMINO ACID 10% IV SCH (17:35)
[2020-09-02] MEDS: FAT EMUL IV SCH (17:35)
[2020-09-02] MEDS: DEXTROSE 70% IV SCH (17:35)
[2020-09-02] MEDS: SMOF TPN IV SCH (17:35)
[2020-09-02 19:25] VITALS: BP 109/75
[2020-09-02] MEDS: FENTANYL REMOVE PATCH NOTE XX SCH (20:14)
[2020-09-02] MEDS: FENTANYL 12 MCG PATCH TD SCH (20:16)
[2020-09-03 00:57] VITALS: BP 103/71
[2020-09-03] MEDS: AMPICILLIN 500MG CAPSULE PO SCH ×3 (05:38→16:16)
[2020-09-03] MEDS: DIPHENHYDRAMINE 50 MG/ML, 1ML IVPush SCH ×2 (05:38→11:41)
[2020-09-03] MEDS: HYDROmorphone 2 MG/ML, 1ML IVPush PRN ×4 (05:39→17:10)
[2020-09-03 08:21] VITALS: BP 101/71
[2020-09-03] MEDS ORDERED: AMPI500C2 PO (08:36)
[2020-09-03] MEDS ORDERED: MICA100V4 IV (08:36)
[2020-09-03] MEDS ORDERED: SULF-23 PO (08:37)
[2020-09-03] MEDS: SULFAMETH./TRIMETHOPRIM DS 800MG/160MG TABLET PO SCH (09:11)
[2020-09-03 12:44] VITALS: BP 107/76
[2020-09-03] MEDS: MICAFUNGIN 100 MG in SODIUM CHLORIDE 0.9% 100 ML IV SCH (15:49)
[2020-09-03] MEDS: [UNRECOGNIZED DRUG - OTHER] IV SCH (17:03)
[2020-09-03] MEDS: FAT EMUL IV SCH (17:03)
[2020-09-03] MEDS: AMINO ACID 10% IV SCH (17:03)
[2020-09-03] MEDS: SMOF TPN IV SCH (17:03)
[2020-09-03] MEDS: DEXTROSE 70% IV SCH (17:03)
== END 2020-09-03 17:27 | disposition home health service (06) | DRG 381 ==
LOC: ED 09:49 → EDIP 14:30 → 4NE 15:40 → 4NW 08-23 20:14
PROVIDERS: ADMIT Internal Medicine; ATTEND Family Medicine
DX: K31.1 Adult hypertrophic pyloric stenosis (principal); N12 Tubulo-interstitial nephritis, not specified as acute or chronic; K86.1 Other chronic pancreatitis; B95.2 Enterococcus as the cause of diseases classified elsewhere; D64.9 Anemia, unspecified; F41.1 Generalized anxiety disorder; I10 Essential (primary) hypertension; N73.6 Female pelvic peritoneal adhesions (postinfective); Z79.82 Long term (current) use of aspirin; Z82.49 Family history of ischemic heart disease and other diseases of the circulatory system; Z83.3 Family history of diabetes mellitus; Z85.41 Personal history of malignant neoplasm of cervix uteri; Z86.718 Personal history of other venous thrombosis and embolism; Z90.49 Acquired absence of other specified parts of digestive tract; Z90.710 Acquired absence of both cervix and uterus; Z93.3 Colostomy status
CPT/HCPCS: 36415; 87106; 96374; 96375; 96376; 99285; J1955; J3475; 71046; 74177; 78226; 80048; 80053; 80061; 81001; 83036; 83690; 83735; 84100; 84134; 84443; 84478; 84703; 85025; 87040; 87077; 87086; 87186; G0378; J0295; J0610; J0696; J1170; J2248; J2405; J2543; Q9967; A9537; C9898; J1200; J2060; J3420; J3480; J7030; J7040

== ENCOUNTER 2020-09-14 09:16 | Emergency (ER) | payer MEDICAID ==
[~2020-09-14] VITALS: Ht 144.8 cm; Wt 40.9 kg
[~2020-09-14 09:16] MED LIST changes: +AMPI500C2 PO; +MICA100V4 IV
[2020-09-14] MEDS ORDERED: SODIUM CHLORIDE FLUSH 10ML SYR IVF ONE ×2 (09:30→12:30)
[2020-09-14 10:17] LABS: BASOPHILS % (AUTO) 1 % (0-1); EOSINOPHILS % (AUTO) 3 % (1-7); LYMPHOCYTES % (AUTO) 20 % (22-44); MEAN CORPUSCULAR HGB CONC 33.6 g/dL (32.4-35.8); MONOCYTES % (AUTO) 7 % (2-9); NEUTROPHILS % (AUTO) 70 % (42-75); PLATELET COUNT 315 x10^3/uL (130-400); RED BLOOD COUNT 4.11 x10^6/uL (3.82-5.3); RED CELL DISTRIBUTION WIDTH 13.2 % (9.6-15.2)
--- NOTE | 2020-09-14 10:28 | NUR ---
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
[2020-09-14 10:31] LABS: CHLORIDE 107 mmol/L (98-107)
[2020-09-14 10:41] LABS: ALANINE AMINOTRANSFERASE 155 U/L (12-78); ALBUMIN 3.3 g/dL (3.4-5.0); ALKALINE PHOSPHATASE 296 U/L (45-117); ANION GAP 8 mmol/L (5-15); BILIRUBIN,TOTAL 0.2 mg/dL (0.2-1.0); CALCIUM 9.3 mg/dL (8.5-10.1); CREATININE 0.85 mg/dL (0.55-1.02); TOTAL PROTEIN 9.4 g/dL (6.4-8.2)
[2020-09-14] MEDS ORDERED: MICA100V3 IV (10:56)
--- NOTE | 2020-09-14 11:01 | NUR ---
Pt with extenisve abd surgical hx and recurrent UTIs. Pt has 2 nephrostomy bags from which UA sample was collected. 2 seperate samples collected and labled as right and left. Pt reports she is already taking 2 abx and an antifungal since sx. Reports sudden onset bilateral flank pain and lower abd pain starting this AM. Pt states baseline HR is 110s. Reports 9/10 pain. Connected to all monitors. Call light in reach.
[2020-09-14] MEDS ORDERED: SODIUM CHLORIDE 0.9% 1,000ML IVBOLUS ONE (12:30)
[2020-09-14] MEDS ORDERED: ONDANSETRON 2MG/ML, 2ML IVPush ONE (12:30)
[2020-09-14] MEDS ORDERED: ONDANSETRON 2MG/ML, 2ML ONE (12:31)
[2020-09-14] MEDS ORDERED: HYDROmorphone 1 MG/ML, 1ML INJ ONE ×2 (12:31→13:45)
[2020-09-14] MEDS: HYDROmorphone 1 MG/ML, 1ML INJ IVPush PRN ×2 (12:33→14:03)
[2020-09-14 12:40] LABS: BASOPHILS % (AUTO) 1 % (0-1); EOSINOPHILS % (AUTO) 3 % (1-7); LYMPHOCYTES % (AUTO) 23 % (22-44); MEAN CORPUSCULAR HEMOGLOBIN 31.1 pg (27.0-34.8); MONOCYTES % (AUTO) 7 % (2-9); NEUTROPHILS % (AUTO) 67 % (42-75); PLATELET COUNT 315 x10^3/uL (130-400); RED BLOOD COUNT 4.02 x10^6/uL (3.82-5.3); RED CELL DISTRIBUTION WIDTH 13.3 % (9.6-15.2)
[2020-09-14 12:51] LABS: ALANINE AMINOTRANSFERASE 155 U/L (12-78); ALBUMIN 3.2 g/dL (3.4-5.0); ANION GAP 7 mmol/L (5-15); CALCIUM 8.9 mg/dL (8.5-10.1); CHLORIDE 105 mmol/L (98-107); CREATININE 0.83 mg/dL (0.55-1.02)
[2020-09-14 12:53] LABS: ALKALINE PHOSPHATASE 301 U/L (45-117); BILIRUBIN,TOTAL 0.3 mg/dL (0.2-1.0); TOTAL PROTEIN 9.2 g/dL (6.4-8.2)
[2020-09-14 13:09] LABS: MICROSCOPIC AUTO
[2020-09-14 13:10] LABS: MICROSCOPIC AUTO
[2020-09-14 14:06] VITALS: BP 130/86
== END 2020-09-14 14:37 | disposition home or self-care (01) ==
LOC: ED 10:54
DX: M54.9 Dorsalgia, unspecified (principal); R10.30 Lower abdominal pain, unspecified; R11.0 Nausea; R94.31 Abnormal electrocardiogram [ECG] [EKG]; Z90.710 Acquired absence of both cervix and uterus
CPT/HCPCS: 36415; 80053; 81001; 83605; 83690; 84703; 85025; 87040; 87077; 87086; 87186; 93005; 96361; 96374; 96375; 96376; 99284; J1170; J2405; J7030

== ENCOUNTER 2020-09-16 11:32 | Day surgery (SDC) | payer MEDICAID ==
[~2020-09-16] VITALS: Ht 144.8 cm; Wt 41.0 kg
[~2020-09-16 11:32] MED LIST changes: +MICA100V3 IV
[2020-09-16 12:25] VITALS: BP 107/77
[2020-09-16] MEDS ORDERED: LIDOCAINE 1%, 20ML ONE (13:45)
[2020-09-16] MEDS ORDERED: MIDAZOLAM 1 MG/ML, 5ML ONE (13:56)
[2020-09-16] MEDS ORDERED: FENTANYL PF 100 MCG/2ML ONE (13:56)
[2020-09-16] MEDS ORDERED: NALOXONE 1 MG/ML, 2ML ONE (13:57)
[2020-09-16] MEDS ORDERED: FLUMAZENIL 0.1 MG/1 ML, 5ML ONE (13:57)
[2020-09-16] MEDS ORDERED: VISIPAQUE 270 MG/ML, 50ML BOTTLE ONE (14:43)
[2020-09-16] MEDS ORDERED: CYSTO CONRAY II 250 ML VIAL UR ONE (14:43)
[2020-09-16] MEDS ORDERED: OXYcodone 5 MG/5 ML ORAL.SOL UDC ONE (15:18)
[2020-09-16] MEDS ORDERED: OXYcodone 5 MG/5 ML ORAL.SOL UDC PO PRN (15:30)
== END 2020-09-16 15:50 | disposition home or self-care (01) ==
LOC: OUT 11:32 → EDSTATUS 13:30 → OUT 15:50
PROVIDERS: ATTEND Specialist
DX: N13.1 Hydronephrosis with ureteral stricture, not elsewhere classified (principal); C53.1 Malignant neoplasm of exocervix; N17.9 Acute kidney failure, unspecified; F41.9 Anxiety disorder, unspecified; Z98.890 Other specified postprocedural states; Z79.899 Other long term (current) drug therapy; Z80.0 Family history of malignant neoplasm of digestive organs; Z72.89 Other problems related to lifestyle
CPT/HCPCS: 50435; 50690; 74425; 99156; 99157; C1729; C1769; J2250; J3010; Q9958; Q9966; J2310

== ENCOUNTER 2020-10-13 14:48 | Inpatient (IN) | payer MEDICAID ==
[~2020-10-13] VITALS: Ht 144.8 cm; Wt 48.1 kg
[~2020-10-13 14:48] MED LIST changes: -MORP100S3 PO; +POTA-143 PO; -POTA20TA6 PO; +[UNRECOGNIZED DRUG - CODE] PO
--- NOTE | 2020-10-13 15:30 | NUR ---
PT STATES INCREASING RT FLANK PAIN X1 DAY. STATES HX OF UROSEPSIS. PT PLACED ON MONITORS. 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 PT AWAITING ERMD ASSESSMENT. CONT TO MONITOR.
[2020-10-13] MEDS ORDERED: SODIUM CHLORIDE 0.9% 1,000ML IVBOLUS ONE ×2 (16:00→18:00)
[2020-10-13] MEDS ORDERED: ONDANSETRON 2MG/ML, 2ML IVPush ONE (16:00)
[2020-10-13] MEDS ORDERED: SODIUM CHLORIDE FLUSH 10ML SYR IVF ONE (16:00)
[2020-10-13] MEDS ORDERED: ONDANSETRON 2MG/ML, 2ML ONE (16:03)
[2020-10-13] MEDS ORDERED: HYDROmorphone 1 MG/ML, 1ML INJ ONE ×2 (16:03→18:27)
[2020-10-13] MEDS: HYDROmorphone 1 MG/ML, 1ML INJ IVPush PRN ×2 (16:23→18:33)
[2020-10-13 16:38] LABS: ALANINE AMINOTRANSFERASE 185 U/L (12-78); ALBUMIN 2.7 g/dL (3.4-5.0); ANION GAP 9 mmol/L (5-15); CALCIUM 8.8 mg/dL (8.5-10.1); CHLORIDE 101 mmol/L (98-107); CREATININE 0.97 mg/dL (0.55-1.02)
[2020-10-13 16:40] LABS: ALKALINE PHOSPHATASE 390 U/L (45-117); BASOPHILS % (AUTO) 0 % (0-1); BILIRUBIN,TOTAL 0.5 mg/dL (0.2-1.0); EOSINOPHILS % (AUTO) 0 % (1-7); LYMPHOCYTES % (AUTO) 6 % (22-44); MEAN CORPUSCULAR HEMOGLOBIN 29.8 pg (27.0-34.8); MEAN CORPUSCULAR HGB CONC 33.3 g/dL (32.4-35.8); MEAN PLATELET VOLUME 8.7 fL (7.4-10.4); MONOCYTES % (AUTO) 10 % (2-9); NEUTROPHILS % (AUTO) 84 % (42-75); PLATELET COUNT 312 x10^3/uL (130-400); RED BLOOD COUNT 3.89 x10^6/uL (3.82-5.3); RED CELL DISTRIBUTION WIDTH 12.3 % (9.6-15.2); TOTAL PROTEIN 8.2 g/dL (6.4-8.2)
--- NOTE | 2020-10-13 16:54 | NUR ---
PT MEDICATED FOR PAIN PER ORDERS. US COLLECTED BILAT FROM NEPHROSTOMY TUBES, SENT TO LAB, ONLY SMALL AMOUNT ABLE TO BE COLLECTED, LAB AND MD AWARE. WILL REASSESS.
[2020-10-13 17:03] LABS: MICROSCOPIC INDICATED
[2020-10-13 17:10] LABS: MICROSCOPIC INDICATED
--- NOTE | 2020-10-13 17:39 | NUR ---
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 PT STATES RECEIVED 2L NS BOLUS YESTERDAY.
[2020-10-13] MEDS ORDERED: CEFTRIAXONE 2 GM in DEXTROSE 5% 50 ML IVPB ONE (18:00)
[2020-10-13] MEDS ORDERED: POTASSIUM CHLORIDE 40 MEQ in SODIUM CHLORIDE 0.9% 500 ML IV ONE ×2 (18:30→23:30)
--- NOTE | 2020-10-13 18:50 | NUR ---
PT AWARE OF POC, TO BE [facility] ADMIT. PT AWAITING ROOM, STATES PAIN LEVEL COMFORTABLE. REMAINS ON MONITORS, AWAITING ADMIT ROOM.
--- NOTE | 2020-10-13 19:36 | NUR ---
REPORT GIVEN TO JULIO CESAR PEÑA. PT OK TO TRANSFER TO FLOOR, PT AWARE OF PLAN OF CARE.
--- NOTE | 2020-10-13 19:57 | NUR ---
PT TRANSFERED TO FLOOR. HAS ALL OWN BELONGINGS UPON TRANSFER.
[2020-10-13] MEDS ORDERED: OXYC5TAB98 PO (20:06)
[2020-10-13] MEDS ORDERED: ONDA4TAB7 PO (20:07)
[2020-10-13] MEDS ORDERED: estradiol PO ×2 (20:10→20:13)
[2020-10-13 20:49] VITALS: BP 98/66
[2020-10-13] MEDS: PIPERACILLIN/TAZO 3.375 GM in DEXTROSE 5% 50 ML IV SCH (22:50)
[2020-10-13] MEDS: ONDANSETRON 2MG/ML, 2ML IVPush PRN (23:50)
[2020-10-14] MEDS ORDERED: HYDROmorphone 2MG TABLET PO PRN
[2020-10-14] MEDS: HYDROmorphone 2 MG/ML, 1ML IVPush PRN ×8 (00:59→22:35)
[2020-10-14] MEDS: PIPERACILLIN/TAZO 3.375 GM in DEXTROSE 5% 50 ML IV SCH ×4 (04:13→22:32)
[2020-10-14 04:47] LABS: ANION GAP 5 mmol/L (5-15); CALCIUM 7.3 mg/dL (8.5-10.1); CHLORIDE 113 mmol/L (98-107); CREATININE 0.96 mg/dL (0.55-1.02)
[2020-10-14 05:12] VITALS: BP 91/49
[2020-10-14 06:45] VITALS: BP 94/66
[2020-10-14] MEDS: DIPHENHYDRAMINE 50 MG/ML, 1ML IVPush PRN ×3 (08:04→21:20)
[2020-10-14 16:54] VITALS: BP 108/73
[2020-10-14 18:53] VITALS: BP 108/75
[2020-10-15 01:29] VITALS: BP 109/71
[2020-10-15] MEDS: HYDROmorphone 2 MG/ML, 1ML IVPush PRN ×7 (02:16→21:55)
[2020-10-15] MEDS: DIPHENHYDRAMINE 50 MG/ML, 1ML IVPush PRN ×4 (04:09→23:34)
[2020-10-15] MEDS: PIPERACILLIN/TAZO 3.375 GM in DEXTROSE 5% 50 ML IV SCH ×4 (04:09→21:55)
[2020-10-15 05:04] LABS: BASOPHILS % (AUTO) 1 % (0-1); EOSINOPHILS % (AUTO) 2 % (1-7); LYMPHOCYTES % (AUTO) 14 % (22-44); MEAN CORPUSCULAR HEMOGLOBIN 30.7 pg (27.0-34.8); MEAN CORPUSCULAR HGB CONC 34.1 g/dL (32.4-35.8); MEAN PLATELET VOLUME 8.7 fL (7.4-10.4); MONOCYTES % (AUTO) 7 % (2-9); NEUTROPHILS % (AUTO) 77 % (42-75); PLATELET COUNT 266 x10^3/uL (130-400); RED BLOOD COUNT 3.43 x10^6/uL (3.82-5.3); RED CELL DISTRIBUTION WIDTH 12.4 % (9.6-15.2)
[2020-10-15 05:18] LABS: ALBUMIN 2.3 g/dL (3.4-5.0); ANION GAP 8 mmol/L (5-15); CALCIUM 8.2 mg/dL (8.5-10.1); CHLORIDE 99 mmol/L (98-107)
[2020-10-15 05:21] LABS: ALANINE AMINOTRANSFERASE 104 U/L (12-78); ALKALINE PHOSPHATASE 280 U/L (45-117); BILIRUBIN,TOTAL 0.3 mg/dL (0.2-1.0)
[2020-10-15 07:47] VITALS: BP 121/79
[2020-10-15 12:56] VITALS: BP 117/78
[2020-10-15] MEDS ORDERED: POTASSIUM CHLORIDE 20 MEQ in SODIUM CHLORIDE 0.9% 250 ML IV ONE (16:30)
[2020-10-15 19:26] VITALS: BP 115/79
[2020-10-16 00:35] VITALS: BP 115/78
[2020-10-16] MEDS: HYDROmorphone 2 MG/ML, 1ML IVPush PRN ×7 (01:23→20:35)
[2020-10-16] MEDS: ONDANSETRON 2MG/ML, 2ML IVPush PRN (01:54)
[2020-10-16] MEDS: PIPERACILLIN/TAZO 3.375 GM in DEXTROSE 5% 50 ML IV SCH ×4 (04:25→22:01)
[2020-10-16] MEDS: DIPHENHYDRAMINE 50 MG/ML, 1ML IVPush PRN ×4 (05:48→23:53)
[2020-10-16 06:25] LABS: ANION GAP 8 mmol/L (5-15); CALCIUM 8.4 mg/dL (8.5-10.1); CHLORIDE 98 mmol/L (98-107)
[2020-10-16 06:26] LABS: CREATININE 0.61 mg/dL (0.55-1.02)
[2020-10-16 06:59] VITALS: BP 115/79
[2020-10-16 12:37] VITALS: BP 116/76
[2020-10-16 19:14] VITALS: BP 109/73
[2020-10-17] MEDS: HYDROmorphone 2 MG/ML, 1ML IVPush PRN ×8 (00:50→23:25)
[2020-10-17 00:58] VITALS: BP 124/83
[2020-10-17] MEDS: PIPERACILLIN/TAZO 3.375 GM in DEXTROSE 5% 50 ML IV SCH ×4 (04:14→22:24)
[2020-10-17] MEDS: DIPHENHYDRAMINE 50 MG/ML, 1ML IVPush PRN ×3 (06:01→20:10)
[2020-10-17 06:49] VITALS: BP 114/80
[2020-10-17 13:17] VITALS: BP 122/87
[2020-10-17 19:38] VITALS: BP 107/46
[2020-10-17] MEDS ORDERED: MAGNESIUM SULFATE PMX 4GM/100M 100 ML IVPB ONE (22:30)
[2020-10-18 02:17] VITALS: BP 112/71
[2020-10-18] MEDS: DIPHENHYDRAMINE 50 MG/ML, 1ML IVPush PRN ×4 (02:34→23:26)
[2020-10-18] MEDS: HYDROmorphone 2 MG/ML, 1ML IVPush PRN ×7 (02:35→23:25)
[2020-10-18] MEDS: PIPERACILLIN/TAZO 3.375 GM in DEXTROSE 5% 50 ML IV SCH ×5 (04:03→22:05)
[2020-10-18 04:25] LABS: BASOPHILS % (AUTO) 1 % (0-1); EOSINOPHILS % (AUTO) 3 % (1-7); LYMPHOCYTES % (AUTO) 16 % (22-44); MEAN CORPUSCULAR HEMOGLOBIN 30.2 pg (27.0-34.8); MEAN PLATELET VOLUME 7.7 fL (7.4-10.4); MONOCYTES % (AUTO) 8 % (2-9); NEUTROPHILS % (AUTO) 73 % (42-75); PLATELET COUNT 389 x10^3/uL (130-400); RED BLOOD COUNT 3.93 x10^6/uL (3.82-5.3); RED CELL DISTRIBUTION WIDTH 12.1 % (9.6-15.2)
[2020-10-18 04:30] LABS: HCT (SEDRATE) 34.5 % (34.6-47.8)
[2020-10-18 04:33] LABS: ALANINE AMINOTRANSFERASE 80 U/L (12-78); ALBUMIN 2.7 g/dL (3.4-5.0); ANION GAP 6 mmol/L (5-15); CALCIUM 8.4 mg/dL (8.5-10.1); CHLORIDE 95 mmol/L (98-107); CREATININE 0.78 mg/dL (0.55-1.02)
[2020-10-18 04:40] LABS: ALKALINE PHOSPHATASE 271 U/L (45-117); BILIRUBIN,TOTAL 0.3 mg/dL (0.2-1.0); TOTAL PROTEIN 8.1 g/dL (6.4-8.2)
[2020-10-18] MEDS ORDERED: POTASSIUM CHLORIDE 10 MEQ in SODIUM CHLORIDE 0.9% 250 ML IV ONE (05:30)
[2020-10-18] MEDS ORDERED: POTASSIUM CHLORIDE 40 MEQ in SODIUM CHLORIDE 0.9% 500 ML IV ONE ×2 (05:39→06:00)
[2020-10-18] MEDS: SODIUM CHLORIDE 0.9% 1,000 ML IV SCH (05:39)
[2020-10-18 06:58] VITALS: BP 105/73
[2020-10-18 13:33] VITALS: BP 119/84
[2020-10-18] MEDS ORDERED: LIDOCAINE 1%, 20ML ONE (13:41)
[2020-10-18] MEDS ORDERED: GOLYTELY 4,000ML ORAL.SOL PO ONE (14:00)
[2020-10-18] MEDS ORDERED: MIDAZOLAM 1 MG/ML, 5ML ONE ×2 (14:13)
[2020-10-18] MEDS ORDERED: FENTANYL PF 100 MCG/2ML ONE (14:13)
[2020-10-18] MEDS ORDERED: NALOXONE 1 MG/ML, 2ML ONE (14:14)
[2020-10-18] MEDS ORDERED: FLUMAZENIL 0.1 MG/1 ML, 5ML ONE (14:14)
[2020-10-18] MEDS ORDERED: VISIPAQUE 270 MG/ML, 50ML BOTTLE ONE (14:44)
[2020-10-18 19:36] VITALS: BP 118/84
[2020-10-19 01:48] VITALS: BP 108/75
[2020-10-19] MEDS: HYDROmorphone 2 MG/ML, 1ML IVPush PRN ×7 (02:28→23:16)
[2020-10-19] MEDS: PIPERACILLIN/TAZO 3.375 GM in DEXTROSE 5% 50 ML IV SCH ×4 (04:37→22:21)
[2020-10-19] MEDS: DIPHENHYDRAMINE 50 MG/ML, 1ML IVPush PRN ×4 (05:53→18:26)
[2020-10-19 06:14] LABS: BASOPHILS % (AUTO) 1 % (0-1); EOSINOPHILS % (AUTO) 3 % (1-7); LYMPHOCYTES % (AUTO) 17 % (22-44); MEAN CORPUSCULAR HEMOGLOBIN 29.9 pg (27.0-34.8); MEAN CORPUSCULAR HGB CONC 33.6 g/dL (32.4-35.8); MEAN PLATELET VOLUME 7.8 fL (7.4-10.4); MONOCYTES % (AUTO) 8 % (2-9); NEUTROPHILS % (AUTO) 71 % (42-75); PLATELET COUNT 357 x10^3/uL (130-400); RED BLOOD COUNT 3.67 x10^6/uL (3.82-5.3); RED CELL DISTRIBUTION WIDTH 12.2 % (9.6-15.2)
[2020-10-19 06:26] LABS: ANION GAP 5 mmol/L (5-15); CALCIUM 8.3 mg/dL (8.5-10.1); CHLORIDE 99 mmol/L (98-107); CREATININE 0.76 mg/dL (0.55-1.02)
[2020-10-19 06:59] VITALS: BP 110/79
[2020-10-19] MEDS ORDERED: POTASSIUM CHLORIDE 40 MEQ in SODIUM CHLORIDE 0.9% 500 ML IV ONE (07:30)
[2020-10-19 12:10] VITALS: BP 111/79
[2020-10-19] MEDS ORDERED: PROPOFOL 50 ML ONE ×2 (13:22→14:46)
[2020-10-19] MEDS ORDERED: CHLORHEXIDINE 15 ML UDC ONE (13:34)
[2020-10-19] MEDS ORDERED: CHLORHEXIDINE 15 ML UDC PO ONE (14:00)
[2020-10-19] MEDS: SODIUM CHLORIDE 0.9% 1,000 ML IV SCH (16:24)
[2020-10-19 19:19] VITALS: BP 117/83
[2020-10-20 01:26] VITALS: BP 123/85
[2020-10-20] MEDS: DIPHENHYDRAMINE 50 MG/ML, 1ML IVPush PRN ×4 (01:28→20:19)
[2020-10-20] MEDS: HYDROmorphone 2 MG/ML, 1ML IVPush PRN ×7 (02:20→20:57)
[2020-10-20] MEDS: PIPERACILLIN/TAZO 3.375 GM in DEXTROSE 5% 50 ML IV SCH ×4 (04:03→21:56)
[2020-10-20 06:03] LABS: ANION GAP 9 mmol/L (5-15); CALCIUM 8.6 mg/dL (8.5-10.1); CHLORIDE 102 mmol/L (98-107); CREATININE 0.67 mg/dL (0.55-1.02)
[2020-10-20 07:15] VITALS: BP 114/79
[2020-10-20] MEDS ORDERED: POTASSIUM CHLORIDE 40 MEQ in SODIUM CHLORIDE 0.9% 500 ML IV ONE (09:30)
[2020-10-20] MEDS ORDERED: MAGNESIUM SULFATE PMX 4GM/100M 100 ML IVPB ONE (09:30)
[2020-10-20] MEDS: SODIUM CHLORIDE 0.9% 1,000 ML IV SCH (09:40)
[2020-10-20] MEDS ORDERED: POTASSIUM CHLORIDE 20 MEQ in SODIUM CHLORIDE 0.9% 250 ML IV ONE (13:30)
[2020-10-20 14:42] VITALS: BP 130/87
[2020-10-20 18:47] VITALS: BP 105/72
[2020-10-21 01:56] VITALS: BP 122/83
[2020-10-21] MEDS: DIPHENHYDRAMINE 50 MG/ML, 1ML IVPush PRN ×4 (02:20→22:00)
[2020-10-21] MEDS: HYDROmorphone 2 MG/ML, 1ML IVPush PRN ×7 (02:57→19:28)
[2020-10-21] MEDS: PIPERACILLIN/TAZO 3.375 GM in DEXTROSE 5% 50 ML IV SCH ×4 (03:52→22:00)
[2020-10-21 06:25] LABS: ANION GAP 7 mmol/L (5-15); CALCIUM 8.4 mg/dL (8.5-10.1); CHLORIDE 100 mmol/L (98-107); CREATININE 0.82 mg/dL (0.55-1.02)
[2020-10-21 07:14] VITALS: BP 110/75
[2020-10-21] MEDS: SODIUM CHLORIDE 0.9% 1,000 ML IV SCH (07:47)
[2020-10-21 13:29] VITALS: BP 111/76
[2020-10-21] MEDS ORDERED: POTASSIUM CHLORIDE 40 MEQ in SODIUM CHLORIDE 0.9% 500 ML IV ONE (20:00)
[2020-10-21 20:26] VITALS: BP 113/77
[2020-10-21] MEDS: OXYcodone IR 5MG TABLET PO PRN (23:10)
[2020-10-22] MEDS: HYDROmorphone 2 MG/ML, 1ML IVPush PRN ×7 (00:28→23:53)
[2020-10-22] MEDS: SODIUM CHLORIDE 0.9% 1,000 ML IV SCH ×2 (03:00→22:15)
[2020-10-22 04:01] VITALS: BP 107/77
[2020-10-22] MEDS: DIPHENHYDRAMINE 50 MG/ML, 1ML IVPush PRN ×4 (04:14→23:53)
[2020-10-22] MEDS: PIPERACILLIN/TAZO 3.375 GM in DEXTROSE 5% 50 ML IV SCH ×4 (04:14→22:15)
[2020-10-22 08:30] VITALS: BP 106/78
[2020-10-22] MEDS: OXYcodone IR 5MG TABLET PO PRN (12:21)
[2020-10-22 14:56] VITALS: BP 110/78
[2020-10-22] MEDS: ONDANSETRON 2MG/ML, 2ML IVPush PRN (19:25)
[2020-10-22 20:06] VITALS: BP 106/68
[2020-10-23 00:07] VITALS: BP 111/80
[2020-10-23] MEDS: HYDROmorphone 2 MG/ML, 1ML IVPush PRN ×6 (03:58→23:22)
[2020-10-23] MEDS: PIPERACILLIN/TAZO 3.375 GM in DEXTROSE 5% 50 ML IV SCH ×4 (04:03→21:27)
[2020-10-23 04:55] LABS: ANION GAP 7 mmol/L (5-15); CALCIUM 8.6 mg/dL (8.5-10.1); CHLORIDE 101 mmol/L (98-107); CREATININE 0.77 mg/dL (0.55-1.02)
[2020-10-23] MEDS: DIPHENHYDRAMINE 50 MG/ML, 1ML IVPush PRN ×3 (05:59→17:49)
[2020-10-23] MEDS ORDERED: MAGNESIUM SULFATE PMX 4GM/100M 100 ML IVPB ONE (06:00)
[2020-10-23] MEDS ORDERED: POTASSIUM CHLORIDE 40 MEQ in SODIUM CHLORIDE 0.9% 500 ML IV ONE (06:00)
[2020-10-23 07:50] VITALS: BP 102/68
[2020-10-23] MEDS: OXYcodone IR 5MG TABLET PO SCH ×4 (08:49→21:27)
[2020-10-23 13:05] VITALS: BP 107/73
[2020-10-23 18:50] VITALS: BP 107/77
[2020-10-23] MEDS: SODIUM CHLORIDE 0.9% 1,000 ML IV SCH (21:27)
[2020-10-24] MEDS: OXYcodone IR 5MG TABLET PO SCH ×6 (01:04→21:18)
[2020-10-24] MEDS: DIPHENHYDRAMINE 50 MG/ML, 1ML IVPush PRN ×4 (01:49→22:21)
[2020-10-24 02:35] VITALS: BP 106/73
[2020-10-24] MEDS: HYDROmorphone 2 MG/ML, 1ML IVPush PRN ×5 (02:47→23:24)
[2020-10-24] MEDS: PIPERACILLIN/TAZO 3.375 GM in DEXTROSE 5% 50 ML IV SCH ×3 (04:26→18:23)
[2020-10-24 05:01] LABS: ANION GAP 5 mmol/L (5-15); CALCIUM 8.5 mg/dL (8.5-10.1); CHLORIDE 102 mmol/L (98-107); CREATININE 0.74 mg/dL (0.55-1.02)
[2020-10-24] MEDS ORDERED: POTASSIUM CHLORIDE 40 MEQ in SODIUM CHLORIDE 0.9% 500 ML IV ONE (08:00)
[2020-10-24 08:45] VITALS: BP 105/70
[2020-10-24] MEDS ORDERED: POTASSIUM CHLORIDE 20 MEQ TAB.ER.PRT PO SCH (09:00)
[2020-10-24 13:56] VITALS: BP 103/71
[2020-10-24 18:41] VITALS: BP 113/74
[2020-10-25] MEDS: SODIUM CHLORIDE 0.9% 1,000 ML IV SCH ×2 (00:27→16:24)
[2020-10-25] MEDS: PIPERACILLIN/TAZO 3.375 GM in DEXTROSE 5% 50 ML IV SCH ×4 (00:27→18:41)
[2020-10-25 00:33] VITALS: BP 97/64
[2020-10-25] MEDS: OXYcodone IR 5MG TABLET PO SCH ×6 (01:03→21:18)
[2020-10-25] MEDS: HYDROmorphone 2 MG/ML, 1ML IVPush PRN ×5 (02:42→22:37)
[2020-10-25] MEDS: DIPHENHYDRAMINE 50 MG/ML, 1ML IVPush PRN ×3 (04:52→17:40)
[2020-10-25 05:08] LABS: HCT (SEDRATE) 31.3 % (34.6-47.8)
[2020-10-25 05:10] LABS: BASOPHILS % (AUTO) 1 % (0-1); EOSINOPHILS % (AUTO) 3 % (1-7); LYMPHOCYTES % (AUTO) 23 % (22-44); MEAN CORPUSCULAR HEMOGLOBIN 30.2 pg (27.0-34.8); MEAN CORPUSCULAR HGB CONC 33.6 g/dL (32.4-35.8); MEAN PLATELET VOLUME 8.1 fL (7.4-10.4); MONOCYTES % (AUTO) 9 % (2-9); NEUTROPHILS % (AUTO) 65 % (42-75); PLATELET COUNT 359 x10^3/uL (130-400); RED BLOOD COUNT 3.51 x10^6/uL (3.82-5.3); RED CELL DISTRIBUTION WIDTH 12.8 % (9.6-15.2)
[2020-10-25 05:21] LABS: ALANINE AMINOTRANSFERASE 25 U/L (12-78); ALBUMIN 2.3 g/dL (3.4-5.0); CALCIUM 8.4 mg/dL (8.5-10.1)
[2020-10-25 05:29] LABS: ANION GAP 5 mmol/L (5-15); CHLORIDE 101 mmol/L (98-107)
[2020-10-25 05:31] LABS: ALKALINE PHOSPHATASE 173 U/L (45-117); BILIRUBIN,TOTAL 0.3 mg/dL (0.2-1.0); TOTAL PROTEIN 7.4 g/dL (6.4-8.2)
[2020-10-25 07:11] VITALS: BP 109/73
[2020-10-25] MEDS ORDERED: POTASSIUM CHLORIDE 40 MEQ in SODIUM CHLORIDE 0.9% 500 ML IV ONE (08:00)
[2020-10-25] MEDS ORDERED: POTASSIUM CHLORIDE 20 MEQ in SODIUM CHLORIDE 0.9% 250 ML IV ONE (12:00)
[2020-10-25 13:21] VITALS: BP 106/72
[2020-10-25 18:59] VITALS: BP 106/71
[2020-10-25] MEDS: FENTANYL 25 MCG PATCH TD SCH (22:30)
[2020-10-26] MEDS: PIPERACILLIN/TAZO 3.375 GM in DEXTROSE 5% 50 ML IV SCH ×4 (00:40→18:24)
[2020-10-26 01:08] VITALS: BP 102/68
[2020-10-26] MEDS: HYDROmorphone 2 MG/ML, 1ML IVPush PRN ×5 (04:11→21:58)
[2020-10-26 04:34] LABS: ANION GAP 5 mmol/L (5-15); CALCIUM 8.3 mg/dL (8.5-10.1); CHLORIDE 105 mmol/L (98-107)
[2020-10-26 07:23] VITALS: BP 97/64
[2020-10-26] MEDS: DIPHENHYDRAMINE 50 MG/ML, 1ML IVPush PRN ×3 (08:54→21:07)
[2020-10-26] MEDS ORDERED: MAGNESIUM SULFATE PMX 2GM/50ML 50 ML IV ONE (15:00)
[2020-10-26 15:20] VITALS: BP 119/83
[2020-10-26] MEDS: SODIUM CHLORIDE 0.9% 1,000 ML IV SCH (17:18)
[2020-10-26] MEDS: ONDANSETRON 2MG/ML, 2ML IVPush PRN (18:00)
[2020-10-26 19:09] VITALS: BP 120/85
[2020-10-27] MEDS: PIPERACILLIN/TAZO 3.375 GM in DEXTROSE 5% 50 ML IV SCH ×4 (00:23→17:40)
[2020-10-27 01:01] VITALS: BP 105/69
[2020-10-27] MEDS: HYDROmorphone 2 MG/ML, 1ML IVPush PRN ×2 (01:40→06:09)
[2020-10-27] MEDS: DIPHENHYDRAMINE 50 MG/ML, 1ML IVPush PRN ×4 (02:53→22:00)
[2020-10-27 06:21] LABS: BASOPHILS % (AUTO) 1 % (0-1); EOSINOPHILS % (AUTO) 4 % (1-7); LYMPHOCYTES % (AUTO) 17 % (22-44); MEAN CORPUSCULAR HEMOGLOBIN 29.9 pg (27.0-34.8); MEAN CORPUSCULAR HGB CONC 33.6 g/dL (32.4-35.8); MEAN PLATELET VOLUME 8.2 fL (7.4-10.4); MONOCYTES % (AUTO) 9 % (2-9); NEUTROPHILS % (AUTO) 69 % (42-75); PLATELET COUNT 351 x10^3/uL (130-400); RED BLOOD COUNT 3.44 x10^6/uL (3.82-5.3)
[2020-10-27 06:40] LABS: ANION GAP 4 mmol/L (5-15); CALCIUM 8.5 mg/dL (8.5-10.1); CHLORIDE 101 mmol/L (98-107)
[2020-10-27 07:17] VITALS: BP 97/65
[2020-10-27] MEDS ORDERED: POTASSIUM CHLORIDE 40 MEQ in SODIUM CHLORIDE 0.9% 500 ML IV ONE (09:30)
[2020-10-27] MEDS: SODIUM CHLORIDE 0.9% 1,000 ML IV SCH (12:58)
[2020-10-27] MEDS: OXYcodone IR 5MG TABLET PO PRN ×2 (13:02→18:55)
[2020-10-27 13:35] VITALS: BP 107/73
[2020-10-27] MEDS: HYDROmorphone 1 MG/ML, 1ML INJ IV PRN ×2 (16:51→22:51)
[2020-10-27 18:33] VITALS: BP 97/64
[2020-10-28 00:08] VITALS: BP 104/70
[2020-10-28] MEDS: PIPERACILLIN/TAZO 3.375 GM in DEXTROSE 5% 50 ML IV SCH ×4 (00:31→18:35)
[2020-10-28] MEDS: OXYcodone IR 5MG TABLET PO PRN (01:40)
[2020-10-28] MEDS: DIPHENHYDRAMINE 50 MG/ML, 1ML IVPush PRN ×3 (04:59→20:22)
[2020-10-28 05:23] LABS: BASOPHILS % (AUTO) 1 % (0-1); EOSINOPHILS % (AUTO) 4 % (1-7); LYMPHOCYTES % (AUTO) 21 % (22-44); MEAN CORPUSCULAR HGB CONC 33.3 g/dL (32.4-35.8); MEAN PLATELET VOLUME 8.2 fL (7.4-10.4); MONOCYTES % (AUTO) 9 % (2-9); NEUTROPHILS % (AUTO) 64 % (42-75); PLATELET COUNT 342 x10^3/uL (130-400); RED BLOOD COUNT 3.32 x10^6/uL (3.82-5.3); RED CELL DISTRIBUTION WIDTH 12.8 % (9.6-15.2)
[2020-10-28 05:43] LABS: CHLORIDE 104 mmol/L (98-107)
[2020-10-28 06:04] LABS: ANION GAP 6 mmol/L (5-15); CALCIUM 8.4 mg/dL (8.5-10.1)
[2020-10-28 07:48] VITALS: BP 93/63
[2020-10-28] MEDS: HYDROmorphone 1 MG/ML, 1ML INJ IV PRN ×3 (08:44→22:50)
[2020-10-28] MEDS ORDERED: POTASSIUM CHLORIDE 40 MEQ in SODIUM CHLORIDE 0.9% 500 ML IV ONE (10:00)
[2020-10-28] MEDS ORDERED: MAGNESIUM SULFATE PMX 2GM/50ML 50 ML IV ONE (10:00)
[2020-10-28] MEDS: SODIUM CHLORIDE 0.9% 1,000 ML IV SCH (10:00)
[2020-10-28 12:45] VITALS: BP 91/60
[2020-10-28] MEDS: ONDANSETRON 2MG/ML, 2ML IVPush PRN (13:00)
[2020-10-28 16:21] LABS: BASOPHILS % (AUTO) 1 % (0-1); EOSINOPHILS % (AUTO) 3 % (1-7); LYMPHOCYTES % (AUTO) 19 % (22-44); MEAN CORPUSCULAR HEMOGLOBIN 29.6 pg (27.0-34.8); MONOCYTES % (AUTO) 10 % (2-9); NEUTROPHILS % (AUTO) 67 % (42-75); PLATELET COUNT 352 x10^3/uL (130-400); RED BLOOD COUNT 3.54 x10^6/uL (3.82-5.3); RED CELL DISTRIBUTION WIDTH 12.7 % (9.6-15.2)
[2020-10-28 16:32] LABS: ANION GAP 5 mmol/L (5-15); CALCIUM 8.5 mg/dL (8.5-10.1); CHLORIDE 103 mmol/L (98-107); CREATININE 0.76 mg/dL (0.55-1.02)
[2020-10-28] MEDS: OXYcodone IR 5MG TABLET PO SCH ×2 (17:29→21:36)
[2020-10-28 19:07] VITALS: BP 102/65
[2020-10-28] MEDS: FENTANYL 25 MCG PATCH TD SCH (21:36)
[2020-10-29] MEDS: PIPERACILLIN/TAZO 3.375 GM in DEXTROSE 5% 50 ML IV SCH ×4 (00:32→18:04)
[2020-10-29 00:40] VITALS: BP 103/72
[2020-10-29] MEDS: OXYcodone IR 5MG TABLET PO SCH ×6 (01:42→21:56)
[2020-10-29] MEDS: DIPHENHYDRAMINE 50 MG/ML, 1ML IVPush PRN ×2 (03:30→10:03)
[2020-10-29] MEDS: HYDROmorphone 1 MG/ML, 1ML INJ IV PRN ×3 (05:00→18:20)
[2020-10-29 05:21] LABS: BASOPHILS % (AUTO) 1 % (0-1); EOSINOPHILS % (AUTO) 3 % (1-7); LYMPHOCYTES % (AUTO) 18 % (22-44); MEAN CORPUSCULAR HEMOGLOBIN 29.6 pg (27.0-34.8); MEAN CORPUSCULAR HGB CONC 33.3 g/dL (32.4-35.8); MONOCYTES % (AUTO) 10 % (2-9); NEUTROPHILS % (AUTO) 68 % (42-75); PLATELET COUNT 373 x10^3/uL (130-400); RED BLOOD COUNT 3.56 x10^6/uL (3.82-5.3); RED CELL DISTRIBUTION WIDTH 12.9 % (9.6-15.2)
[2020-10-29 05:26] LABS: ANION GAP 9 mmol/L (5-15); CALCIUM 8.9 mg/dL (8.5-10.1); CHLORIDE 103 mmol/L (98-107)
[2020-10-29 07:24] VITALS: BP 89/57
[2020-10-29 07:25] VITALS: BP_SYST 89; BP_SYST 90; BP_DIAS 58; BP_DIAS 59
[2020-10-29 07:41] VITALS: BP 94/63
[2020-10-29 13:47] VITALS: BP 101/69
[2020-10-29] MEDS ORDERED: POTASSIUM CHLORIDE 40 MEQ in SODIUM CHLORIDE 0.9% 500 ML IV ONE (15:30)
[2020-10-29] MEDS: SODIUM CHLORIDE 0.9% 1,000 ML IV SCH (16:09)
[2020-10-29] MEDS: DIPHENHYDRAMINE 50 MG/ML, 1ML IVPush SCH ×2 (16:10→21:55)
[2020-10-29] MEDS: FENTANYL REMOVE PATCH NOTE XX SCH (16:30)
[2020-10-29] MEDS: FENTANYL 12 MCG PATCH TD SCH (16:42)
[2020-10-29] MEDS: FENTANYL 25 MCG PATCH TD SCH (16:42)
[2020-10-29 20:37] VITALS: BP 98/65
[2020-10-30] MEDS: OXYcodone IR 5MG TABLET PO SCH ×6 (01:07→21:03)
[2020-10-30] MEDS: HYDROmorphone 1 MG/ML, 1ML INJ IV PRN ×4 (01:08→18:38)
[2020-10-30] MEDS: PIPERACILLIN/TAZO 3.375 GM in DEXTROSE 5% 50 ML IV SCH ×4 (01:09→18:28)
[2020-10-30 02:30] VITALS: BP 102/70
[2020-10-30] MEDS: DIPHENHYDRAMINE 50 MG/ML, 1ML IVPush SCH ×4 (04:32→22:00)
[2020-10-30 06:18] LABS: ANION GAP 6 mmol/L (5-15); CALCIUM 8.8 mg/dL (8.5-10.1); CHLORIDE 102 mmol/L (98-107); CREATININE 0.88 mg/dL (0.55-1.02)
[2020-10-30 07:23] VITALS: BP 101/74
[2020-10-30 13:10] VITALS: BP 99/67
[2020-10-30] MEDS ORDERED: POTASSIUM CHLORIDE 40 MEQ in SODIUM CHLORIDE 0.9% 500 ML IV ONE (16:00)
[2020-10-30] MEDS: SODIUM CHLORIDE 0.9% 1,000 ML IV SCH (16:11)
[2020-10-30 18:31] VITALS: BP 103/69
[2020-10-31] MEDS: OXYcodone IR 5MG TABLET PO SCH ×6 (00:46→21:50)
[2020-10-31] MEDS: PIPERACILLIN/TAZO 3.375 GM in DEXTROSE 5% 50 ML IV SCH ×4 (00:46→19:46)
[2020-10-31] MEDS: HYDROmorphone 1 MG/ML, 1ML INJ IV PRN ×4 (00:51→20:44)
[2020-10-31 00:57] VITALS: BP 110/75
[2020-10-31] MEDS: DIPHENHYDRAMINE 50 MG/ML, 1ML IVPush SCH ×4 (04:09→21:37)
[2020-10-31 05:23] LABS: ANION GAP 7 mmol/L (5-15); CALCIUM 8.6 mg/dL (8.5-10.1); CHLORIDE 102 mmol/L (98-107)
[2020-10-31 05:26] LABS: CREATININE 0.72 mg/dL (0.55-1.02)
[2020-10-31 07:29] VITALS: BP 103/70
[2020-10-31] MEDS ORDERED: MAGNESIUM SULFATE PMX 2GM/50ML 50 ML IV ONE (11:00)
[2020-10-31 12:51] VITALS: BP 105/72
[2020-10-31 14:41] LABS: CLOSTRIDIUM DIFFICILE ANTIGEN NEGATIVE; CLOSTRIDIUM DIFFICILE TOXIN NEGATIVE (Negative)
[2020-10-31] MEDS: SODIUM CHLORIDE 0.9% 1,000 ML IV SCH (16:29)
[2020-10-31 18:59] VITALS: BP 105/74
[2020-11-01] MEDS: ONDANSETRON 2MG/ML, 2ML IVPush PRN ×5 (00:08→19:48)
[2020-11-01 00:13] VITALS: BP 103/69
[2020-11-01] MEDS: PIPERACILLIN/TAZO 3.375 GM in DEXTROSE 5% 50 ML IV SCH ×4 (01:49→20:45)
[2020-11-01] MEDS: OXYcodone IR 5MG TABLET PO SCH ×4 (01:50→15:45)
[2020-11-01] MEDS: HYDROmorphone 1 MG/ML, 1ML INJ IV PRN ×4 (02:52→21:02)
[2020-11-01] MEDS: DIPHENHYDRAMINE 50 MG/ML, 1ML IVPush SCH ×4 (04:12→22:51)
[2020-11-01 05:35] LABS: HCT (SEDRATE) 32.2 % (34.6-47.8)
[2020-11-01 05:37] LABS: BASOPHILS % (AUTO) 2 % (0-1); EOSINOPHILS % (AUTO) 3 % (1-7); LYMPHOCYTES % (AUTO) 20 % (22-44); MEAN CORPUSCULAR HEMOGLOBIN 30.1 pg (27.0-34.8); MEAN PLATELET VOLUME 8.1 fL (7.4-10.4); MONOCYTES % (AUTO) 9 % (2-9); NEUTROPHILS % (AUTO) 67 % (42-75); PLATELET COUNT 390 x10^3/uL (130-400); RED BLOOD COUNT 3.68 x10^6/uL (3.82-5.3)
[2020-11-01 05:46] LABS: ALBUMIN 2.2 g/dL (3.4-5.0); ANION GAP 8 mmol/L (5-15); CALCIUM 8.9 mg/dL (8.5-10.1); CHLORIDE 96 mmol/L (98-107)
[2020-11-01 05:56] LABS: ALANINE AMINOTRANSFERASE 26 U/L (12-78); ALKALINE PHOSPHATASE 164 U/L (45-117); BILIRUBIN,TOTAL 0.3 mg/dL (0.2-1.0); CREATININE 0.81 mg/dL (0.55-1.02); TOTAL PROTEIN 8.2 g/dL (6.4-8.2)
[2020-11-01 07:34] VITALS: BP 108/76
[2020-11-01] MEDS ORDERED: POTASSIUM CHLORIDE 40 MEQ in SODIUM CHLORIDE 0.9% 500 ML IV ONE (08:30)
[2020-11-01 12:18] VITALS: BP 100/67
[2020-11-01] MEDS ORDERED: POTASSIUM CHLORIDE 20 MEQ in SODIUM CHLORIDE 0.9% 250 ML IV ONE (13:00)
[2020-11-01] MEDS: FENTANYL 12 MCG PATCH TD SCH (16:26)
[2020-11-01] MEDS: FENTANYL 25 MCG PATCH TD SCH (16:26)
[2020-11-01] MEDS: FENTANYL REMOVE PATCH NOTE XX SCH (16:27)
[2020-11-01 18:37] VITALS: BP 99/66
[2020-11-01] MEDS: OXYcodone ORAL.CONC 20 MG/ML PO SCH (20:30)
[2020-11-01] MEDS: SODIUM CHLORIDE 0.9% 1,000 ML IV SCH (21:01)
[2020-11-01] MEDS: FENTANYL 50 MCG PATCH TD SCH (21:03)
[2020-11-02] MEDS: OXYcodone ORAL.CONC 20 MG/ML PO SCH ×7 (00:30→20:17)
[2020-11-02 02:14] VITALS: BP 107/73
[2020-11-02] MEDS: PIPERACILLIN/TAZO 3.375 GM in DEXTROSE 5% 50 ML IV SCH ×4 (03:00→20:16)
[2020-11-02] MEDS ORDERED: HYDROmorphone 2 MG/ML, 1ML ONE ×3 (05:03→23:16)
[2020-11-02] MEDS: HYDROmorphone 1 MG/ML, 1ML INJ IV PRN ×5 (05:15→23:19)
[2020-11-02] MEDS: DIPHENHYDRAMINE 50 MG/ML, 1ML IVPush SCH ×4 (05:16→22:12)
[2020-11-02 05:43] LABS: ANION GAP 6 mmol/L (5-15); CALCIUM 8.3 mg/dL (8.5-10.1); CHLORIDE 105 mmol/L (98-107)
[2020-11-02 05:44] LABS: CREATININE 0.88 mg/dL (0.55-1.02)
[2020-11-02] MEDS: SODIUM CHLORIDE 0.9% 1,000 ML IV SCH ×2 (05:53→13:58)
[2020-11-02 08:06] VITALS: BP 105/70
[2020-11-02] MEDS ORDERED: OMNIPAQUE 350 MG/ML, 100ML BOTTLE ONE (09:15)
[2020-11-02 13:28] VITALS: BP 106/73
[2020-11-02] MEDS ORDERED: SCOPOLAMINE 1MG PATCH TD ONE (15:00)
[2020-11-02] MEDS: D5%-0.45NACL+KCL 20MEQ 1,000 ML IV SCH (15:19)
[2020-11-02] MEDS ORDERED: MAGNESIUM SULFATE PMX 2GM/50ML 50 ML IV ONE (19:00)
[2020-11-02 19:01] VITALS: BP 104/70
[2020-11-03] MEDS: OXYcodone ORAL.CONC 20 MG/ML PO SCH ×6 (00:15→20:12)
[2020-11-03 01:23] VITALS: BP 109/74
[2020-11-03] MEDS: PIPERACILLIN/TAZO 3.375 GM in DEXTROSE 5% 50 ML IV SCH ×4 (01:49→19:43)
[2020-11-03] MEDS: D5%-0.45NACL+KCL 20MEQ 1,000 ML IV SCH (03:11)
[2020-11-03] MEDS: DIPHENHYDRAMINE 50 MG/ML, 1ML IVPush SCH ×4 (04:21→22:24)
[2020-11-03 05:13] LABS: ANION GAP 5 mmol/L (5-15); CALCIUM 8.5 mg/dL (8.5-10.1); CHLORIDE 102 mmol/L (98-107)
[2020-11-03 05:14] LABS: CREATININE 0.89 mg/dL (0.55-1.02)
[2020-11-03] MEDS ORDERED: HYDROmorphone 2 MG/ML, 1ML ONE ×2 (06:32→19:38)
[2020-11-03] MEDS: HYDROmorphone 1 MG/ML, 1ML INJ IV PRN ×3 (06:34→19:43)
[2020-11-03 07:03] VITALS: BP 115/81
[2020-11-03] MEDS: D5%-0.9% NACL+KCL 20MEQ 1,000 ML IV SCH ×3 (08:07→22:25)
[2020-11-03] MEDS: ONDANSETRON 2MG/ML, 2ML IVPush PRN ×4 (08:07→23:58)
[2020-11-03] MEDS ORDERED: LORazepam 0.5MG TABLET PO PRN (09:30)
[2020-11-03 12:58] VITALS: BP 114/76
[2020-11-03 18:55] VITALS: BP 100/67
[2020-11-04 00:08] VITALS: BP 105/71
[2020-11-04] MEDS: OXYcodone ORAL.CONC 20 MG/ML PO SCH ×6 (00:25→20:30)
[2020-11-04] MEDS ORDERED: HYDROmorphone 2 MG/ML, 1ML ONE ×4 (01:52→21:49)
[2020-11-04] MEDS: HYDROmorphone 1 MG/ML, 1ML INJ IV PRN ×4 (01:55→21:51)
[2020-11-04] MEDS: PIPERACILLIN/TAZO 3.375 GM in DEXTROSE 5% 50 ML IV SCH ×4 (02:00→20:59)
[2020-11-04] MEDS: DIPHENHYDRAMINE 50 MG/ML, 1ML IVPush SCH ×4 (03:58→20:59)
[2020-11-04] MEDS: ONDANSETRON 2MG/ML, 2ML IVPush PRN ×4 (03:58→20:40)
[2020-11-04 05:05] LABS: ANION GAP 6 mmol/L (5-15); CALCIUM 8.3 mg/dL (8.5-10.1); CHLORIDE 106 mmol/L (98-107)
[2020-11-04 05:08] LABS: CREATININE 0.85 mg/dL (0.55-1.02)
[2020-11-04] MEDS: D5%-0.9% NACL+KCL 20MEQ 1,000 ML IV SCH ×2 (06:14→17:27)
[2020-11-04 08:39] VITALS: BP 102/70
[2020-11-04 13:13] VITALS: BP 114/77
[2020-11-04] MEDS ORDERED: MAGNESIUM SULFATE PMX 4GM/100M 100 ML IVPB ONE (16:30)
[2020-11-04] MEDS: FENTANYL REMOVE PATCH NOTE XX SCH (20:00)
[2020-11-04 20:10] VITALS: BP 104/71
[2020-11-04] MEDS: FENTANYL 50 MCG PATCH TD SCH (21:11)
[2020-11-05] MEDS: ONDANSETRON 2MG/ML, 2ML IVPush PRN ×5 (00:27→23:26)
[2020-11-05] MEDS: D5%-0.9% NACL+KCL 20MEQ 1,000 ML IV SCH ×2 (00:27→08:20)
[2020-11-05] MEDS: OXYcodone ORAL.CONC 20 MG/ML PO SCH ×6 (00:30→21:43)
[2020-11-05 02:24] VITALS: BP 104/71
[2020-11-05] MEDS: PIPERACILLIN/TAZO 3.375 GM in DEXTROSE 5% 50 ML IV SCH ×4 (02:48→22:48)
[2020-11-05] MEDS: DIPHENHYDRAMINE 50 MG/ML, 1ML IVPush SCH ×4 (02:48→21:39)
[2020-11-05] MEDS ORDERED: HYDROmorphone 2 MG/ML, 1ML ONE ×3 (04:33→16:03)
[2020-11-05] MEDS: HYDROmorphone 1 MG/ML, 1ML INJ IV PRN ×4 (04:34→23:26)
[2020-11-05 05:22] LABS: BASOPHILS % (AUTO) 1 % (0-1); EOSINOPHILS % (AUTO) 9 % (1-7); LYMPHOCYTES % (AUTO) 22 % (22-44); MEAN CORPUSCULAR HEMOGLOBIN 30.1 pg (27.0-34.8); MEAN CORPUSCULAR HGB CONC 33.7 g/dL (32.4-35.8); MONOCYTES % (AUTO) 10 % (2-9); NEUTROPHILS % (AUTO) 59 % (42-75); PLATELET COUNT 351 x10^3/uL (130-400); RED BLOOD COUNT 3.56 x10^6/uL (3.82-5.3); RED CELL DISTRIBUTION WIDTH 13.1 % (9.6-15.2)
[2020-11-05 05:33] LABS: CALCIUM 8.1 mg/dL (8.5-10.1)
[2020-11-05 05:36] LABS: CREATININE 0.84 mg/dL (0.55-1.02)
[2020-11-05 05:43] LABS: ANION GAP 2 mmol/L (5-15); CHLORIDE 105 mmol/L (98-107)
[2020-11-05 08:24] VITALS: BP 111/77
[2020-11-05 12:50] VITALS: BP 132/73
[2020-11-05] MEDS ORDERED: PROCHLORPERAZINE 5 MG/ML, 2ML IVPush PRN (13:00)
[2020-11-05] MEDS: FENTANYL REMOVE PATCH NOTE XX SCH (13:00)
[2020-11-05] MEDS: FENTANYL 75 MCG PATCH TD SCH (13:00)
[2020-11-05] MEDS ORDERED: FENTANYL 25 MCG PATCH ONE (13:17)
[2020-11-05 14:24] VITALS: BP 105/72
[2020-11-05 15:07] VITALS: BP 106/77
[2020-11-05] MEDS ORDERED: DIGOXIN 0.25 MG/ML, 2ML IVPush ONE (15:30)
[2020-11-05] MEDS ORDERED: ADENOSINE 6 MG/2 ML IVPush ONE ×2 (15:30)
[2020-11-05] MEDS ORDERED: DIGOXIN 0.25 MG/ML, 2ML ONE (15:32)
[2020-11-05] MEDS: HEPARIN 5,000 UNITS/ML, 1ML SQ SCH (17:05)
[2020-11-05 18:22] LABS: TROPONIN I < 0.015 ng/mL (0.000-0.045)
[2020-11-05] MEDS ORDERED: ADENOSINE 6 MG/2 ML ONE (19:04)
[2020-11-05 19:26] VITALS: BP 105/73
[2020-11-06 01:14] VITALS: BP 100/70
[2020-11-06] MEDS: DIPHENHYDRAMINE 50 MG/ML, 1ML IVPush SCH ×4 (03:18→20:54)
[2020-11-06] MEDS: OXYcodone ORAL.CONC 20 MG/ML PO SCH ×5 (03:18→20:55)
[2020-11-06] MEDS: PIPERACILLIN/TAZO 3.375 GM in DEXTROSE 5% 50 ML IV SCH ×4 (04:52→22:14)
[2020-11-06] MEDS: HEPARIN 5,000 UNITS/ML, 1ML SQ SCH ×2 (05:23→17:09)
[2020-11-06] MEDS: HYDROmorphone 1 MG/ML, 1ML INJ IV PRN ×3 (05:40→17:52)
[2020-11-06 07:10] VITALS: BP 110/77
[2020-11-06] MEDS: D5%-0.9% NACL+KCL 20MEQ 1,000 ML IV SCH ×2 (07:45→17:08)
[2020-11-06] MEDS ORDERED: OXYcodone ORAL.CONC 20 MG/ML PO ONE (09:30)
[2020-11-06] MEDS ORDERED: HYDROmorphone 2 MG/ML, 1ML ONE (11:44)
[2020-11-06] MEDS: METOPROLOL TARTRATE 25 MG TAB PO SCH ×2 (11:47→20:55)
[2020-11-06 12:43] VITALS: BP 102/68
[2020-11-06 15:38] LABS: ANION GAP 8 mmol/L (5-15); CALCIUM 8.2 mg/dL (8.5-10.1); CHLORIDE 101 mmol/L (98-107); CREATININE 1.07 mg/dL (0.55-1.02)
[2020-11-06] MEDS ORDERED: TPN PER PHARMACY MC PRN (16:30)
[2020-11-06] MEDS ORDERED: MAGNESIUM SULFATE PMX 2GM/50ML 50 ML IV ONE (19:30)
[2020-11-06 19:34] VITALS: BP 97/64
[2020-11-07] MEDS ORDERED: HYDROmorphone 2 MG/ML, 1ML ONE ×4 (00:12→20:51)
[2020-11-07] MEDS: HYDROmorphone 1 MG/ML, 1ML INJ IV PRN ×4 (00:38→20:53)
[2020-11-07 00:40] VITALS: BP 103/62
[2020-11-07] MEDS: OXYcodone ORAL.CONC 20 MG/ML PO SCH ×6 (02:19→20:44)
[2020-11-07] MEDS: DIPHENHYDRAMINE 50 MG/ML, 1ML IVPush SCH ×4 (02:19→20:43)
[2020-11-07] MEDS: ONDANSETRON 2MG/ML, 2ML IVPush PRN ×3 (04:20→17:09)
[2020-11-07 05:21] LABS: ALBUMIN 2.3 g/dL (3.4-5.0); ANION GAP 8 mmol/L (5-15); CALCIUM 8.7 mg/dL (8.5-10.1); CHLORIDE 98 mmol/L (98-107)
[2020-11-07] MEDS: METOPROLOL TARTRATE 25 MG TAB PO SCH ×2 (05:23→17:10)
[2020-11-07] MEDS: HEPARIN 5,000 UNITS/ML, 1ML SQ SCH ×2 (05:24→17:10)
[2020-11-07] MEDS: PIPERACILLIN/TAZO 3.375 GM in DEXTROSE 5% 50 ML IV SCH ×4 (05:24→23:17)
[2020-11-07 05:28] LABS: ALANINE AMINOTRANSFERASE 29 U/L (12-78); ALKALINE PHOSPHATASE 167 U/L (45-117); BILIRUBIN,TOTAL 0.4 mg/dL (0.2-1.0); CREATININE 1.05 mg/dL (0.55-1.02); PREALBUMIN 17.1 mg/dL (20.0-40.0); TOTAL PROTEIN 8.7 g/dL (6.4-8.2)
[2020-11-07] MEDS: D5%-0.9% NACL+KCL 20MEQ 1,000 ML IV SCH (05:36)
[2020-11-07 09:00] VITALS: BP 100/64
[2020-11-07] MEDS ORDERED: D5%-0.9% NACL+KCL 20MEQ 1,000 ML IV SCH (10:00)
[2020-11-07 14:22] VITALS: BP 106/74
[2020-11-07] MEDS ORDERED: [UNRECOGNIZED DRUG - OTHER] IV SCH (17:00)
[2020-11-07] MEDS ORDERED: SMOF TPN IV SCH ×2 (17:00)
[2020-11-07] MEDS ORDERED: FAT EMUL IV SCH ×2 (17:00)
[2020-11-07] MEDS ORDERED: DEXTROSE 70% IV SCH ×2 (17:00)
[2020-11-07] MEDS ORDERED: D5%-0.9% NACL 1,000 ML IV SCH (17:00)
[2020-11-07] MEDS ORDERED: [UNRECOGNIZED DRUG - OTHER] IV SCH (17:00)
[2020-11-07] MEDS ORDERED: AMINO ACID 10% IV SCH ×2 (17:00)
[2020-11-07] MEDS: FILTER, DISP 1.2 MICRON FOR TPN/PVN IV PRN (17:09)
[2020-11-07 20:00] VITALS: BP 97/56
[2020-11-08] MEDS: OXYcodone ORAL.CONC 20 MG/ML PO SCH ×6 (00:23→20:28)
[2020-11-08 00:24] VITALS: BP 90/60
[2020-11-08] MEDS: HEPARIN 5,000 UNITS/ML, 1ML SQ SCH ×2 (04:04→16:48)
[2020-11-08] MEDS: DIPHENHYDRAMINE 50 MG/ML, 1ML IVPush SCH ×4 (04:04→20:26)
[2020-11-08] MEDS: PIPERACILLIN/TAZO 3.375 GM in DEXTROSE 5% 50 ML IV SCH ×4 (04:05→22:46)
[2020-11-08 05:28] VITALS: BP 89/60
[2020-11-08] MEDS: METOPROLOL TARTRATE 25 MG TAB PO SCH (05:28)
[2020-11-08] MEDS ORDERED: HYDROmorphone 2 MG/ML, 1ML ONE ×2 (05:43→21:16)
[2020-11-08] MEDS: ONDANSETRON 2MG/ML, 2ML IVPush PRN ×2 (05:46→12:47)
[2020-11-08] MEDS: HYDROmorphone 1 MG/ML, 1ML INJ IV PRN ×3 (05:46→21:20)
[2020-11-08 06:02] LABS: CHLORIDE 106 mmol/L (98-107)
[2020-11-08 06:06] LABS: BASOPHILS % (AUTO) 1 % (0-1); EOSINOPHILS % (AUTO) 6 % (1-7); LYMPHOCYTES % (AUTO) 21 % (22-44); MEAN CORPUSCULAR HEMOGLOBIN 29.8 pg (27.0-34.8); MONOCYTES % (AUTO) 13 % (2-9); NEUTROPHILS % (AUTO) 59 % (42-75); PLATELET COUNT 432 x10^3/uL (130-400); RED BLOOD COUNT 3.91 x10^6/uL (3.82-5.3); RED CELL DISTRIBUTION WIDTH 13.5 % (9.6-15.2)
[2020-11-08 06:09] LABS: ANION GAP 6 mmol/L (5-15); CALCIUM 8.4 mg/dL (8.5-10.1); CREATININE 0.87 mg/dL (0.55-1.02); TRIGLYCERIDES 255 mg/dL (50-200)
[2020-11-08 08:14] VITALS: BP 92/68
[2020-11-08] MEDS ORDERED: MAALOX/HYOSCYAMINE/LIDOCAINE 45 ML BTL PO ONE (08:30)
[2020-11-08] MEDS ORDERED: LACTATED RINGERS 1,000 ML IV SCH (10:00)
[2020-11-08 12:54] VITALS: BP 99/69
[2020-11-08 14:15] VITALS: BP 103/67
[2020-11-08] MEDS: FENTANYL REMOVE PATCH NOTE XX SCH (14:22)
[2020-11-08] MEDS: FENTANYL 75 MCG PATCH TD SCH (14:24)
[2020-11-08] MEDS: LACTATED RINGERS 1,000 ML IV SCH (14:40)
[2020-11-08] MEDS ORDERED: AMINO ACID 10% IV SCH (16:00)
[2020-11-08] MEDS ORDERED: DEXTROSE 70% IV SCH (16:00)
[2020-11-08] MEDS ORDERED: [UNRECOGNIZED DRUG - OTHER] IV SCH (16:00)
[2020-11-08] MEDS ORDERED: SMOF TPN IV SCH (16:00)
[2020-11-08] MEDS ORDERED: FAT EMUL IV SCH (16:00)
[2020-11-08] MEDS: FILTER, DISP 1.2 MICRON FOR TPN/PVN IV PRN (16:49)
[2020-11-08 19:41] VITALS: BP 97/64
[2020-11-09] MEDS: OXYcodone ORAL.CONC 20 MG/ML PO SCH ×6 (01:11→21:49)
[2020-11-09 01:39] VITALS: BP 90/59
[2020-11-09] MEDS: DIPHENHYDRAMINE 50 MG/ML, 1ML IVPush SCH ×4 (03:54→21:48)
[2020-11-09] MEDS: PIPERACILLIN/TAZO 3.375 GM in DEXTROSE 5% 50 ML IV SCH ×2 (03:55→10:37)
[2020-11-09] MEDS ORDERED: HYDROmorphone 2 MG/ML, 1ML ONE ×2 (04:59→22:51)
[2020-11-09] MEDS: HEPARIN 5,000 UNITS/ML, 1ML SQ SCH ×2 (05:03→17:06)
[2020-11-09] MEDS: HYDROmorphone 1 MG/ML, 1ML INJ IV PRN ×4 (05:04→22:54)
[2020-11-09 06:16] LABS: CHLORIDE 91 mmol/L (98-107)
[2020-11-09 06:26] LABS: ALANINE AMINOTRANSFERASE 15 U/L (12-78); ALBUMIN 1.6 g/dL (3.4-5.0); CREATININE 0.82 mg/dL (0.55-1.02)
[2020-11-09 06:29] LABS: BILIRUBIN,TOTAL 0.2 mg/dL (0.2-1.0)
[2020-11-09 06:38] LABS: CALCIUM 8.2 mg/dL (8.5-10.1)
[2020-11-09 06:40] LABS: ALKALINE PHOSPHATASE 116 U/L (45-117); TOTAL PROTEIN 6.3 g/dL (6.4-8.2)
[2020-11-09 06:42] VITALS: BP 93/64
[2020-11-09 06:47] LABS: ANION GAP 7 mmol/L (5-15)
[2020-11-09] MEDS: LACTATED RINGERS 1,000 ML IV SCH (07:27)
[2020-11-09] MEDS ORDERED: SULFAMETH./TRIMETHOPRIM DS 800MG/160MG TABLET PO SCH (11:30)
[2020-11-09] MEDS ORDERED: AMOXICILLIN 500 MG CAPSULE PO SCH (12:00)
[2020-11-09 13:13] VITALS: BP 95/65
[2020-11-09] MEDS ORDERED: CATHFLO-ALTEPLASE 2 MG/2 ML CATHFLUSH ONE (16:00)
[2020-11-09] MEDS ORDERED: FAT EMUL IV SCH (17:00)
[2020-11-09] MEDS ORDERED: SMOF TPN IV SCH (17:00)
[2020-11-09] MEDS ORDERED: AMINO ACID 10% IV SCH (17:00)
[2020-11-09] MEDS ORDERED: DEXTROSE 70% IV SCH (17:00)
[2020-11-09] MEDS ORDERED: [UNRECOGNIZED DRUG - OTHER] IV SCH (17:00)
[2020-11-09 19:03] VITALS: BP 104/73
[2020-11-10 01:26] VITALS: BP 99/65
[2020-11-10] MEDS: OXYcodone ORAL.CONC 20 MG/ML PO SCH ×7 (01:51→22:09)
[2020-11-10] MEDS: DIPHENHYDRAMINE 50 MG/ML, 1ML IVPush SCH ×3 (04:35→17:57)
[2020-11-10] MEDS: HEPARIN 5,000 UNITS/ML, 1ML SQ SCH (04:35)
[2020-11-10] MEDS ORDERED: HYDROmorphone 2 MG/ML, 1ML ONE ×3 (08:02→22:12)
[2020-11-10 08:04] VITALS: BP 109/75
[2020-11-10] MEDS: HYDROmorphone 1 MG/ML, 1ML INJ IV PRN ×3 (08:07→22:13)
[2020-11-10 09:40] VITALS: BP 97/67
[2020-11-10 10:09] LABS: ANION GAP 6 mmol/L (5-15); CALCIUM 7.9 mg/dL (8.5-10.1); CHLORIDE 102 mmol/L (98-107); CREATININE 0.62 mg/dL (0.55-1.02)
[2020-11-10] MEDS: LACTATED RINGERS 1,000 ML IV SCH (12:08)
[2020-11-10 13:18] VITALS: BP 103/69
[2020-11-10] MEDS: LORazepam 2 MG/ML, 1ML IVPush SCH ×2 (15:15→22:06)
[2020-11-10] MEDS ORDERED: DEXTROSE 70% IV SCH (17:00)
[2020-11-10] MEDS ORDERED: FAT EMUL IV SCH (17:00)
[2020-11-10] MEDS ORDERED: SMOF TPN IV SCH (17:00)
[2020-11-10] MEDS ORDERED: AMINO ACID 10% IV SCH (17:00)
[2020-11-10] MEDS ORDERED: FILTER, DISP 1.2 MICRON FOR TPN/PVN IV PRN (17:00)
[2020-11-10] MEDS ORDERED: [UNRECOGNIZED DRUG - OTHER] IV SCH (17:00)
[2020-11-10 19:35] VITALS: BP 116/79
[2020-11-11] MEDS: OXYcodone ORAL.CONC 20 MG/ML PO SCH ×6 (00:10→22:29)
[2020-11-11] MEDS: DIPHENHYDRAMINE 50 MG/ML, 1ML IVPush SCH ×4 (00:10→18:04)
[2020-11-11 01:47] VITALS: BP 106/71
[2020-11-11] MEDS: LORazepam 2 MG/ML, 1ML IVPush SCH ×4 (03:11→22:29)
[2020-11-11] MEDS ORDERED: HYDROmorphone 2 MG/ML, 1ML ONE ×4 (05:08→19:38)
[2020-11-11] MEDS: HYDROmorphone 1 MG/ML, 1ML INJ IV PRN ×3 (05:11→19:43)
[2020-11-11 08:00] VITALS: BP 119/82
[2020-11-11] MEDS ORDERED: HYDROmorphone 1 MG/ML, 1ML INJ IM ONE (08:00)
[2020-11-11] MEDS: ASPIRIN 81 MG TABLET CHEW PO SCH (09:09)
[2020-11-11] MEDS ORDERED: SODIUM CHLORIDE 0.9% 1,000ML IVBOLUS ONE (10:00)
[2020-11-11] MEDS: LACTATED RINGERS 1,000 ML IV SCH ×2 (10:07→18:00)
[2020-11-11 11:26] VITALS: BP 103/70
[2020-11-11 11:58] LABS: ANION GAP 4 mmol/L (5-15); CALCIUM 7.6 mg/dL (8.5-10.1); CHLORIDE 110 mmol/L (98-107)
[2020-11-11] MEDS ORDERED: FENTANYL 50 MCG PATCH ONE (12:46)
[2020-11-11] MEDS ORDERED: FENTANYL 25 MCG PATCH ONE (12:46)
[2020-11-11] MEDS: FENTANYL 75 MCG PATCH TD SCH (12:50)
[2020-11-11] MEDS: FENTANYL REMOVE PATCH NOTE XX SCH (13:00)
[2020-11-11 13:45] VITALS: BP 102/70
[2020-11-11] MEDS ORDERED: FAT EMUL IV SCH (17:00)
[2020-11-11] MEDS ORDERED: [UNRECOGNIZED DRUG - OTHER] IV SCH (17:00)
[2020-11-11] MEDS ORDERED: SMOF TPN IV SCH (17:00)
[2020-11-11] MEDS ORDERED: FILTER, DISP 1.2 MICRON FOR TPN/PVN IV PRN (17:00)
[2020-11-11] MEDS ORDERED: AMINO ACID 10% IV SCH (17:00)
[2020-11-11] MEDS ORDERED: DEXTROSE 70% IV SCH (17:00)
[2020-11-11 19:13] VITALS: BP 104/2
[2020-11-12] MEDS: DIPHENHYDRAMINE 50 MG/ML, 1ML IVPush SCH ×5 (00:19→23:45)
[2020-11-12 00:58] VITALS: BP 122/68
[2020-11-12] MEDS ORDERED: HYDROmorphone 2 MG/ML, 1ML ONE ×4 (01:43→20:10)
[2020-11-12] MEDS: OXYcodone ORAL.CONC 20 MG/ML PO SCH ×6 (01:45→21:45)
[2020-11-12] MEDS: HYDROmorphone 1 MG/ML, 1ML INJ IV PRN ×4 (01:47→20:12)
[2020-11-12] MEDS: LORazepam 2 MG/ML, 1ML IVPush SCH ×4 (03:33→21:49)
[2020-11-12 06:03] VITALS: BP 108/70
[2020-11-12] MEDS: LACTATED RINGERS 1,000 ML IV SCH ×3 (06:25→21:58)
[2020-11-12 07:06] LABS: BASOPHILS % (AUTO) 1 % (0-1); EOSINOPHILS % (AUTO) 8 % (1-7); LYMPHOCYTES % (AUTO) 26 % (22-44); MEAN CORPUSCULAR HEMOGLOBIN 30.1 pg (27.0-34.8); MEAN CORPUSCULAR HGB CONC 33.2 g/dL (32.4-35.8); MEAN PLATELET VOLUME 8.5 fL (7.4-10.4); MONOCYTES % (AUTO) 11 % (2-9); NEUTROPHILS % (AUTO) 54 % (42-75); PLATELET COUNT 223 x10^3/uL (130-400); RED BLOOD COUNT 2.78 x10^6/uL (3.82-5.3); RED CELL DISTRIBUTION WIDTH 13.6 % (9.6-15.2)
[2020-11-12 07:15] LABS: ANION GAP 4 mmol/L (5-15); CALCIUM 8.7 mg/dL (8.5-10.1); CHLORIDE 103 mmol/L (98-107); CREATININE 0.59 mg/dL (0.55-1.02)
[2020-11-12] MEDS: ASPIRIN 81 MG TABLET CHEW PO SCH (10:01)
[2020-11-12 14:00] VITALS: BP 106/75
[2020-11-12] MEDS ORDERED: AMINO ACID 10% IV SCH (17:00)
[2020-11-12] MEDS ORDERED: [UNRECOGNIZED DRUG - OTHER] IV SCH (17:00)
[2020-11-12] MEDS: FILTER, DISP 1.2 MICRON FOR TPN/PVN IV PRN (17:00)
[2020-11-12] MEDS ORDERED: DEXTROSE 70% IV SCH (17:00)
[2020-11-12] MEDS ORDERED: SMOF TPN IV SCH (17:00)
[2020-11-12] MEDS ORDERED: FAT EMUL IV SCH (17:00)
[2020-11-12 18:59] VITALS: BP 111/78
[2020-11-13 01:22] VITALS: BP 101/65
[2020-11-13] MEDS: OXYcodone ORAL.CONC 20 MG/ML PO SCH ×6 (01:52→21:02)
[2020-11-13] MEDS ORDERED: HYDROmorphone 2 MG/ML, 1ML ONE ×4 (02:15→22:57)
[2020-11-13] MEDS: HYDROmorphone 1 MG/ML, 1ML INJ IV PRN ×4 (02:18→23:01)
[2020-11-13] MEDS: LORazepam 2 MG/ML, 1ML IVPush SCH ×4 (03:13→21:02)
[2020-11-13] MEDS: LACTATED RINGERS 1,000 ML IV SCH ×3 (05:35→21:02)
[2020-11-13] MEDS: DIPHENHYDRAMINE 50 MG/ML, 1ML IVPush SCH ×4 (05:44→23:56)
[2020-11-13 06:09] LABS: BASOPHILS % (AUTO) 1 % (0-1); EOSINOPHILS % (AUTO) 9 % (1-7); LYMPHOCYTES % (AUTO) 27 % (22-44); MEAN CORPUSCULAR HEMOGLOBIN 29.9 pg (27.0-34.8); MEAN CORPUSCULAR HGB CONC 33.3 g/dL (32.4-35.8); MEAN PLATELET VOLUME 8.7 fL (7.4-10.4); MONOCYTES % (AUTO) 13 % (2-9); NEUTROPHILS % (AUTO) 50 % (42-75); PLATELET COUNT 235 x10^3/uL (130-400); RED BLOOD COUNT 2.92 x10^6/uL (3.82-5.3); RED CELL DISTRIBUTION WIDTH 13.5 % (9.6-15.2)
[2020-11-13 06:14] LABS: ANION GAP 4 mmol/L (5-15); CALCIUM 8.8 mg/dL (8.5-10.1); CHLORIDE 102 mmol/L (98-107); CREATININE 0.47 mg/dL (0.55-1.02)
[2020-11-13 07:05] VITALS: BP 106/72
[2020-11-13] MEDS: ASPIRIN 81 MG TABLET CHEW PO SCH (09:26)
[2020-11-13 13:48] VITALS: BP 102/69
[2020-11-13] MEDS ORDERED: [UNRECOGNIZED DRUG - OTHER] IV SCH (17:00)
[2020-11-13] MEDS ORDERED: DEXTROSE 70% IV SCH ×2 (17:00)
[2020-11-13] MEDS ORDERED: FAT EMUL IV SCH ×2 (17:00)
[2020-11-13] MEDS ORDERED: [UNRECOGNIZED DRUG - OTHER] IV SCH (17:00)
[2020-11-13] MEDS ORDERED: SMOF TPN IV SCH ×2 (17:00)
[2020-11-13] MEDS ORDERED: AMINO ACID 10% IV SCH ×2 (17:00)
[2020-11-13] MEDS: FILTER, DISP 1.2 MICRON FOR TPN/PVN IV PRN (17:58)
[2020-11-13 20:17] VITALS: BP 110/65
[2020-11-14 00:01] VITALS: BP 100/64
[2020-11-14] MEDS: OXYcodone ORAL.CONC 20 MG/ML PO SCH ×6 (01:43→21:35)
[2020-11-14] MEDS: LORazepam 2 MG/ML, 1ML IVPush SCH ×4 (03:10→21:11)
[2020-11-14] MEDS ORDERED: HYDROmorphone 2 MG/ML, 1ML ONE ×4 (04:59→23:06)
[2020-11-14] MEDS: HYDROmorphone 1 MG/ML, 1ML INJ IV PRN ×4 (05:01→23:10)
[2020-11-14] MEDS: DIPHENHYDRAMINE 50 MG/ML, 1ML IVPush SCH ×3 (05:43→17:40)
[2020-11-14] MEDS: LACTATED RINGERS 1,000 ML IV SCH ×2 (05:44→15:25)
[2020-11-14 06:14] LABS: CALCIUM 8.5 mg/dL (8.5-10.1)
[2020-11-14 07:07] LABS: CHLORIDE 103 mmol/L (98-107)
[2020-11-14 07:08] LABS: ANION GAP 5 mmol/L (5-15)
[2020-11-14 07:18] VITALS: BP 97/68
[2020-11-14] MEDS: ASPIRIN 81 MG TABLET CHEW PO SCH (09:17)
[2020-11-14] MEDS: FENTANYL 100 MCG PATCH TD SCH (09:18)
[2020-11-14] MEDS: FENTANYL REMOVE PATCH NOTE XX SCH (09:24)
[2020-11-14 13:20] VITALS: BP 118/80
[2020-11-14] MEDS ORDERED: FAT EMUL IV SCH (17:00)
[2020-11-14] MEDS ORDERED: SMOF TPN IV SCH (17:00)
[2020-11-14] MEDS ORDERED: AMINO ACID 10% IV SCH (17:00)
[2020-11-14] MEDS ORDERED: [UNRECOGNIZED DRUG - OTHER] IV SCH (17:00)
[2020-11-14] MEDS ORDERED: DEXTROSE 70% IV SCH (17:00)
[2020-11-14] MEDS: FILTER, DISP 1.2 MICRON FOR TPN/PVN IV PRN (17:07)
[2020-11-14] MEDS: CARVEDILOL 3.125 MG TABLET PO SCH (17:40)
[2020-11-14 21:14] VITALS: BP 104/69
[2020-11-15] MEDS: DIPHENHYDRAMINE 50 MG/ML, 1ML IVPush SCH ×4 (00:16→18:13)
[2020-11-15 00:20] VITALS: BP 101/67
[2020-11-15] MEDS: OXYcodone ORAL.CONC 20 MG/ML PO SCH ×6 (01:48→22:30)
[2020-11-15] MEDS: LORazepam 2 MG/ML, 1ML IVPush SCH ×4 (03:14→22:14)
[2020-11-15] MEDS ORDERED: HYDROmorphone 2 MG/ML, 1ML ONE ×4 (05:26→18:12)
[2020-11-15] MEDS: HYDROmorphone 1 MG/ML, 1ML INJ IV PRN ×2 (05:38→11:31)
[2020-11-15 06:07] LABS: CHLORIDE 101 mmol/L (98-107)
[2020-11-15 06:13] LABS: ALANINE AMINOTRANSFERASE 44 U/L (12-78); ALBUMIN 1.8 g/dL (3.4-5.0); ALKALINE PHOSPHATASE 171 U/L (45-117); ANION GAP 5 mmol/L (5-15); BILIRUBIN,TOTAL 0.1 mg/dL (0.2-1.0); CALCIUM 8.5 mg/dL (8.5-10.1); CREATININE 0.48 mg/dL (0.55-1.02); TOTAL PROTEIN 6.8 g/dL (6.4-8.2); TRIGLYCERIDES 253 mg/dL (50-200)
[2020-11-15] MEDS: CARVEDILOL 3.125 MG TABLET PO SCH ×3 (06:18→18:13)
[2020-11-15 06:19] VITALS: BP 99/74
[2020-11-15 06:56] VITALS: BP 100/67
[2020-11-15] MEDS: ASPIRIN 81 MG TABLET CHEW PO SCH (08:59)
[2020-11-15 14:12] VITALS: BP 99/65
[2020-11-15 15:30] LABS: INTERNATIONAL NORMALIZED RATIO 1.17 (0.93-1.1); PROTHROMBIN TIME 12.4 Seconds (9.6-11.5)
[2020-11-15] MEDS ORDERED: HYDROmorphone 1 MG/ML, 1ML INJ IV ONE (15:30)
[2020-11-15 15:31] LABS: BASOPHILS % (AUTO) 1 % (0-1); EOSINOPHILS % (AUTO) 8 % (1-7); LYMPHOCYTES % (AUTO) 22 % (22-44); MEAN CORPUSCULAR HEMOGLOBIN 30.2 pg (27.0-34.8); MEAN CORPUSCULAR HGB CONC 33.6 g/dL (32.4-35.8); MEAN PLATELET VOLUME 8.5 fL (7.4-10.4); MONOCYTES % (AUTO) 12 % (2-9); NEUTROPHILS % (AUTO) 58 % (42-75); PLATELET COUNT 257 x10^3/uL (130-400); RED BLOOD COUNT 2.99 x10^6/uL (3.82-5.3)
[2020-11-15] MEDS: FILTER, DISP 1.2 MICRON FOR TPN/PVN IV PRN (16:52)
[2020-11-15] MEDS ORDERED: FAT EMUL IV SCH (17:00)
[2020-11-15] MEDS ORDERED: [UNRECOGNIZED DRUG - OTHER] IV SCH (17:00)
[2020-11-15] MEDS ORDERED: SMOF TPN IV SCH (17:00)
[2020-11-15] MEDS ORDERED: AMINO ACID 10% IV SCH (17:00)
[2020-11-15] MEDS ORDERED: DEXTROSE 70% IV SCH (17:00)
[2020-11-15 18:50] VITALS: BP 97/68
[2020-11-15 23:03] LABS: MICROSCOPIC AUTO
[2020-11-15 23:20] LABS: MICROSCOPIC AUTO
[2020-11-16] MEDS: DIPHENHYDRAMINE 50 MG/ML, 1ML IVPush SCH ×4 (00:10→18:20)
[2020-11-16 00:12] VITALS: BP 96/65
[2020-11-16] MEDS ORDERED: HYDROmorphone 2 MG/ML, 1ML ONE ×4 (01:08→20:07)
[2020-11-16] MEDS: HYDROmorphone 1 MG/ML, 1ML INJ IV PRN ×4 (01:11→20:11)
[2020-11-16] MEDS: OXYcodone ORAL.CONC 20 MG/ML PO SCH ×6 (02:15→22:15)
[2020-11-16] MEDS: LORazepam 2 MG/ML, 1ML IVPush SCH ×4 (03:04→21:14)
[2020-11-16] MEDS: LACTATED RINGERS 1,000 ML IV SCH ×2 (05:44→19:20)
[2020-11-16] MEDS: CARVEDILOL 3.125 MG TABLET PO SCH ×2 (05:59→18:20)
[2020-11-16 06:23] LABS: ANION GAP 3 mmol/L (5-15); CALCIUM 8.6 mg/dL (8.5-10.1); CHLORIDE 102 mmol/L (98-107); CREATININE 0.51 mg/dL (0.55-1.02)
[2020-11-16 08:40] VITALS: BP 100/73
[2020-11-16 13:03] VITALS: BP 107/76
[2020-11-16] MEDS ORDERED: SMOF TPN IV SCH (17:00)
[2020-11-16] MEDS ORDERED: DEXTROSE 70% IV SCH (17:00)
[2020-11-16] MEDS ORDERED: FAT EMUL IV SCH (17:00)
[2020-11-16] MEDS ORDERED: AMINO ACID 10% IV SCH (17:00)
[2020-11-16] MEDS ORDERED: [UNRECOGNIZED DRUG - OTHER] IV SCH (17:00)
[2020-11-16] MEDS: FILTER, DISP 1.2 MICRON FOR TPN/PVN IV PRN (17:03)
[2020-11-16 18:52] VITALS: BP 103/71
[2020-11-17] MEDS ORDERED: HYDROmorphone 2 MG/ML, 1ML ONE ×6 (00:04→21:37)
[2020-11-17 00:07] VITALS: BP 122/88
[2020-11-17] MEDS: HYDROmorphone 1 MG/ML, 1ML INJ IV PRN ×6 (00:11→21:42)
[2020-11-17] MEDS: DIPHENHYDRAMINE 50 MG/ML, 1ML IVPush SCH ×4 (00:11→18:38)
[2020-11-17] MEDS: OXYcodone ORAL.CONC 20 MG/ML PO SCH ×5 (02:36→20:48)
[2020-11-17] MEDS: LORazepam 2 MG/ML, 1ML IVPush SCH ×2 (02:36→08:40)
[2020-11-17] MEDS: LACTATED RINGERS 1,000 ML IV SCH ×2 (05:31→19:50)
[2020-11-17 06:06] LABS: ANION GAP 4 mmol/L (5-15); CALCIUM 8.7 mg/dL (8.5-10.1); CHLORIDE 103 mmol/L (98-107)
[2020-11-17] MEDS: CARVEDILOL 3.125 MG TABLET PO SCH ×2 (06:28→17:29)
[2020-11-17 06:50] VITALS: BP 98/69
[2020-11-17] MEDS: FENTANYL 100 MCG PATCH TD SCH (08:41)
[2020-11-17] MEDS: FENTANYL REMOVE PATCH NOTE XX SCH (13:00)
[2020-11-17 13:16] VITALS: BP 110/79
[2020-11-17] MEDS ORDERED: LORazepam 2 MG/ML, 1ML IVPush PRN (15:30)
[2020-11-17] MEDS ORDERED: LORazepam 0.5MG TABLET ONE (16:40)
[2020-11-17] MEDS: LORazepam 0.5MG TABLET PO SCH (16:43)
[2020-11-17] MEDS ORDERED: DEXTROSE 70% IV SCH (17:00)
[2020-11-17] MEDS ORDERED: FILTER, DISP 1.2 MICRON FOR TPN/PVN IV PRN (17:00)
[2020-11-17] MEDS ORDERED: AMINO ACID 10% IV SCH (17:00)
[2020-11-17] MEDS ORDERED: [UNRECOGNIZED DRUG - OTHER] IV SCH (17:00)
[2020-11-17] MEDS ORDERED: FAT EMUL IV SCH (17:00)
[2020-11-17] MEDS ORDERED: SMOF TPN IV SCH (17:00)
[2020-11-17 20:06] VITALS: BP 102/68
[2020-11-18 01:03] VITALS: BP 95/60
[2020-11-18] MEDS ORDERED: HYDROmorphone 2 MG/ML, 1ML ONE ×6 (01:48→22:43)
[2020-11-18] MEDS: HYDROmorphone 1 MG/ML, 1ML INJ IV PRN ×6 (01:50→22:47)
[2020-11-18] MEDS: LORazepam 0.5MG TABLET PO SCH ×4 (02:53→20:52)
[2020-11-18] MEDS: OXYcodone ORAL.CONC 20 MG/ML PO SCH ×6 (04:00→20:53)
[2020-11-18 05:45] VITALS: BP 105/66
[2020-11-18] MEDS: DIPHENHYDRAMINE 50 MG/ML, 1ML IVPush SCH ×4 (05:53→18:16)
[2020-11-18] MEDS: CARVEDILOL 3.125 MG TABLET PO SCH ×2 (05:53→18:16)
[2020-11-18 06:16] LABS: CHLORIDE 100 mmol/L (98-107)
[2020-11-18 06:28] LABS: ANION GAP 6 mmol/L (5-15); CALCIUM 8.8 mg/dL (8.5-10.1)
[2020-11-18 07:18] VITALS: BP 106/77
[2020-11-18] MEDS: LACTATED RINGERS 1,000 ML IV SCH ×2 (09:15→20:53)
[2020-11-18 12:32] VITALS: BP 101/74
[2020-11-18] MEDS ORDERED: OXYcodone 5 MG/5 ML ORAL.SOL UDC ONE (16:14)
[2020-11-18] MEDS ORDERED: SMOF TPN IV SCH (17:00)
[2020-11-18] MEDS ORDERED: DEXTROSE 70% IV SCH (17:00)
[2020-11-18] MEDS ORDERED: AMINO ACID 10% IV SCH (17:00)
[2020-11-18] MEDS ORDERED: FILTER, DISP 1.2 MICRON FOR TPN/PVN IV PRN (17:00)
[2020-11-18] MEDS ORDERED: [UNRECOGNIZED DRUG - OTHER] IV SCH (17:00)
[2020-11-18] MEDS ORDERED: FAT EMUL IV SCH (17:00)
[2020-11-18 18:44] VITALS: BP 100/69
[2020-11-18] MEDS ORDERED: ESTRADIOL 0.1 MG/24 HR PATCH TD SCH (19:30)
[2020-11-19] MEDS: DIPHENHYDRAMINE 50 MG/ML, 1ML IVPush SCH ×5 (00:29→23:34)
[2020-11-19] MEDS: OXYcodone ORAL.CONC 20 MG/ML PO SCH ×7 (00:29→23:34)
[2020-11-19 01:13] VITALS: BP 98/64
[2020-11-19] MEDS ORDERED: HYDROmorphone 2 MG/ML, 1ML ONE ×5 (02:48→19:53)
[2020-11-19] MEDS: LORazepam 0.5MG TABLET PO SCH ×4 (02:50→20:29)
[2020-11-19] MEDS: HYDROmorphone 1 MG/ML, 1ML INJ IV PRN ×6 (02:50→19:55)
[2020-11-19] MEDS: LACTATED RINGERS 1,000 ML IV SCH (05:20)
[2020-11-19 06:05] VITALS: BP 99/70
[2020-11-19] MEDS: CARVEDILOL 3.125 MG TABLET PO SCH ×2 (06:06→16:10)
[2020-11-19] MEDS ORDERED: ESTRADIOL 0.1 MG/24 HR PATCH TD SCH (09:00)
[2020-11-19 09:40] VITALS: BP 95/59
[2020-11-19 15:04] VITALS: BP 103/71
[2020-11-19] MEDS: FILTER, DISP 1.2 MICRON FOR TPN/PVN IV PRN (16:46)
[2020-11-19] MEDS ORDERED: DEXTROSE 70% IV SCH (17:00)
[2020-11-19] MEDS ORDERED: FAT EMUL IV SCH (17:00)
[2020-11-19] MEDS ORDERED: AMINO ACID 10% IV SCH (17:00)
[2020-11-19] MEDS ORDERED: SMOF TPN IV SCH (17:00)
[2020-11-19] MEDS ORDERED: [UNRECOGNIZED DRUG - OTHER] IV SCH (17:00)
[2020-11-19 18:46] VITALS: BP 108/66
[2020-11-20] MEDS ORDERED: HYDROmorphone 2 MG/ML, 1ML ONE ×6 (00:33→21:07)
[2020-11-20] MEDS: HYDROmorphone 1 MG/ML, 1ML INJ IV PRN ×6 (00:37→21:09)
[2020-11-20 00:40] VITALS: BP 101/68
[2020-11-20] MEDS: LORazepam 0.5MG TABLET PO SCH ×4 (03:16→21:08)
[2020-11-20] MEDS: OXYcodone ORAL.CONC 20 MG/ML PO SCH ×6 (03:17→22:56)
[2020-11-20] MEDS: LACTATED RINGERS 1,000 ML IV SCH ×2 (05:07→18:20)
[2020-11-20 05:50] LABS: ANION GAP 5 mmol/L (5-15); CALCIUM 8.8 mg/dL (8.5-10.1); CHLORIDE 105 mmol/L (98-107)
[2020-11-20 05:51] LABS: CREATININE 0.49 mg/dL (0.55-1.02)
[2020-11-20 05:54] VITALS: BP 101/69
[2020-11-20] MEDS: CARVEDILOL 3.125 MG TABLET PO SCH ×2 (05:56→18:08)
[2020-11-20] MEDS: DIPHENHYDRAMINE 50 MG/ML, 1ML IVPush SCH ×4 (05:56→23:53)
[2020-11-20 08:04] VITALS: BP 97/66
[2020-11-20] MEDS ORDERED: FENTANYL 25 MCG PATCH TD SCH ×2 (09:00→16:30)
[2020-11-20] MEDS ORDERED: FENTANYL 100 MCG PATCH TD SCH (09:00)
[2020-11-20] MEDS: FENTANYL 100 MCG PATCH TD SCH (09:03)
[2020-11-20] MEDS: FENTANYL REMOVE PATCH NOTE XX SCH (11:47)
[2020-11-20 13:21] VITALS: BP 105/70
[2020-11-20] MEDS: FILTER, DISP 1.2 MICRON FOR TPN/PVN IV PRN (16:53)
[2020-11-20] MEDS ORDERED: [UNRECOGNIZED DRUG - OTHER] IV SCH (17:00)
[2020-11-20] MEDS ORDERED: FAT EMUL IV SCH (17:00)
[2020-11-20] MEDS ORDERED: SMOF TPN IV SCH (17:00)
[2020-11-20] MEDS ORDERED: DEXTROSE 70% IV SCH (17:00)
[2020-11-20] MEDS ORDERED: AMINO ACID 10% IV SCH (17:00)
[2020-11-20] MEDS ORDERED: FENTANYL 25 MCG PATCH ONE (17:07)
[2020-11-20 18:42] VITALS: BP 111/76
[2020-11-21 00:21] VITALS: BP 102/70
[2020-11-21] MEDS ORDERED: HYDROmorphone 2 MG/ML, 1ML ONE ×2 (02:37→07:44)
[2020-11-21] MEDS: HYDROmorphone 1 MG/ML, 1ML INJ IV PRN ×2 (02:41→07:50)
[2020-11-21] MEDS: LORazepam 0.5MG TABLET PO SCH ×4 (03:22→20:37)
[2020-11-21] MEDS: OXYcodone ORAL.CONC 20 MG/ML PO SCH ×6 (03:23→23:00)
[2020-11-21] MEDS: LACTATED RINGERS 1,000 ML IV SCH (05:19)
[2020-11-21 05:49] LABS: ANION GAP 6 mmol/L (5-15); CALCIUM 8.4 mg/dL (8.5-10.1); CHLORIDE 104 mmol/L (98-107); CREATININE 0.45 mg/dL (0.55-1.02)
[2020-11-21 05:50] VITALS: BP 102/75
[2020-11-21] MEDS: DIPHENHYDRAMINE 50 MG/ML, 1ML IVPush SCH ×3 (05:51→17:56)
[2020-11-21] MEDS: CARVEDILOL 3.125 MG TABLET PO SCH ×2 (05:51→17:57)
[2020-11-21 06:43] VITALS: BP 106/71
[2020-11-21] MEDS: HYDROmorphone 2 MG/ML, 1ML IV PRN ×3 (12:52→23:36)
[2020-11-21 13:22] VITALS: BP 103/68
[2020-11-21] MEDS ORDERED: DEXTROSE 70% IV SCH (17:00)
[2020-11-21] MEDS ORDERED: SMOF TPN IV SCH (17:00)
[2020-11-21] MEDS ORDERED: FAT EMUL IV SCH (17:00)
[2020-11-21] MEDS ORDERED: AMINO ACID 10% IV SCH (17:00)
[2020-11-21] MEDS ORDERED: [UNRECOGNIZED DRUG - OTHER] IV SCH (17:00)
[2020-11-21] MEDS: FILTER, DISP 1.2 MICRON FOR TPN/PVN IV PRN (17:04)
[2020-11-21 19:39] VITALS: BP 101/63
[2020-11-22] MEDS: DIPHENHYDRAMINE 50 MG/ML, 1ML IVPush SCH ×4 (00:05→18:12)
[2020-11-22 01:19] VITALS: BP 107/72
[2020-11-22] MEDS: OXYcodone ORAL.CONC 20 MG/ML PO SCH ×6 (03:00→23:00)
[2020-11-22] MEDS: LORazepam 0.5MG TABLET PO SCH ×4 (03:04→19:50)
[2020-11-22] MEDS: LACTATED RINGERS 1,000 ML IV SCH (05:04)
[2020-11-22] MEDS: CARVEDILOL 3.125 MG TABLET PO SCH ×2 (05:04→18:12)
[2020-11-22] MEDS: HYDROmorphone 2 MG/ML, 1ML IV PRN ×5 (05:25→22:38)
[2020-11-22 05:35] LABS: CHLORIDE 103 mmol/L (98-107)
[2020-11-22 05:47] LABS: ALANINE AMINOTRANSFERASE 45 U/L (12-78); ALBUMIN 1.9 g/dL (3.4-5.0); ALKALINE PHOSPHATASE 162 U/L (45-117); ANION GAP 7 mmol/L (5-15); BILIRUBIN,TOTAL 0.2 mg/dL (0.2-1.0); CALCIUM 8.5 mg/dL (8.5-10.1); CREATININE 0.51 mg/dL (0.55-1.02); PREALBUMIN 20.1 mg/dL (20.0-40.0); TOTAL PROTEIN 7.1 g/dL (6.4-8.2); TRIGLYCERIDES 214 mg/dL (50-200)
[2020-11-22 07:01] VITALS: BP 97/65
[2020-11-22] MEDS: ESTRADIOL 0.1 MG/24 HR PATCH TD SCH (09:14)
[2020-11-22 12:21] VITALS: BP 102/70
[2020-11-22] MEDS ORDERED: AMINO ACID 10% IV SCH (17:00)
[2020-11-22] MEDS ORDERED: SMOF TPN IV SCH (17:00)
[2020-11-22] MEDS ORDERED: FAT EMUL IV SCH (17:00)
[2020-11-22] MEDS ORDERED: DEXTROSE 70% IV SCH (17:00)
[2020-11-22] MEDS ORDERED: [UNRECOGNIZED DRUG - OTHER] IV SCH (17:00)
[2020-11-22] MEDS: FILTER, DISP 1.2 MICRON FOR TPN/PVN IV PRN (17:06)
[2020-11-22 19:23] VITALS: BP 103/70
[2020-11-23] MEDS: DIPHENHYDRAMINE 50 MG/ML, 1ML IVPush SCH ×4 (00:14→18:05)
[2020-11-23 01:26] VITALS: BP 105/69
[2020-11-23] MEDS: HYDROmorphone 2 MG/ML, 1ML IV PRN ×5 (02:58→22:51)
[2020-11-23] MEDS: LORazepam 0.5MG TABLET PO SCH ×4 (02:59→20:51)
[2020-11-23] MEDS: OXYcodone ORAL.CONC 20 MG/ML PO SCH ×6 (03:00→23:38)
[2020-11-23] MEDS: LACTATED RINGERS 1,000 ML IV SCH (05:16)
[2020-11-23] MEDS: CARVEDILOL 3.125 MG TABLET PO SCH ×2 (05:17→18:05)
[2020-11-23 05:39] LABS: ANION GAP 5 mmol/L (5-15); CALCIUM 8.1 mg/dL (8.5-10.1); CHLORIDE 103 mmol/L (98-107); CREATININE 0.46 mg/dL (0.55-1.02)
[2020-11-23 07:58] VITALS: BP 97/66
[2020-11-23] MEDS ORDERED: FENTANYL 75 MCG PATCH TD SCH (09:00)
[2020-11-23] MEDS ORDERED: FENTANYL 25 MCG PATCH TD SCH (09:00)
[2020-11-23] MEDS ORDERED: FENTANYL 100 MCG PATCH TD SCH (09:00)
[2020-11-23] MEDS: FENTANYL 75 MCG PATCH TD SCH (09:00)
[2020-11-23] MEDS ORDERED: FENTANYL 50 MCG PATCH ONE (11:22)
[2020-11-23] MEDS ORDERED: FENTANYL 100 MCG PATCH ONE (11:22)
[2020-11-23] MEDS: FENTANYL REMOVE PATCH NOTE XX SCH (11:45)
[2020-11-23] MEDS ORDERED: LORazepam 1MG TABLET ONE (16:04)
[2020-11-23 16:13] VITALS: BP 102/71
[2020-11-23] MEDS ORDERED: FAT EMUL IV SCH (17:00)
[2020-11-23] MEDS ORDERED: [UNRECOGNIZED DRUG - OTHER] IV SCH (17:00)
[2020-11-23] MEDS ORDERED: SMOF TPN IV SCH (17:00)
[2020-11-23] MEDS ORDERED: AMINO ACID 10% IV SCH (17:00)
[2020-11-23] MEDS ORDERED: DEXTROSE 70% IV SCH (17:00)
[2020-11-23] MEDS: FILTER, DISP 1.2 MICRON FOR TPN/PVN IV PRN (18:04)
[2020-11-23 18:47] VITALS: BP 108/64
[2020-11-23 20:57] LABS: MICROSCOPIC AUTO
[2020-11-23 23:39] LABS: MICROSCOPIC AUTO
[2020-11-23] MEDS: AMITRIPTYLINE 10 MG TABLET PO SCH (23:39)
[2020-11-24] MEDS: DIPHENHYDRAMINE 50 MG/ML, 1ML IVPush SCH ×4 (00:30→17:53)
[2020-11-24 01:15] VITALS: BP 95/64
[2020-11-24] MEDS: OXYcodone ORAL.CONC 20 MG/ML PO SCH ×6 (03:00→23:00)
[2020-11-24] MEDS: HYDROmorphone 2 MG/ML, 1ML IV PRN ×4 (03:11→22:55)
[2020-11-24] MEDS: LORazepam 0.5MG TABLET PO SCH ×4 (03:11→21:11)
[2020-11-24 05:21] LABS: BASOPHILS % (AUTO) 1 % (0-1); EOSINOPHILS % (AUTO) 7 % (1-7); LYMPHOCYTES % (AUTO) 26 % (22-44); MEAN CORPUSCULAR HEMOGLOBIN 30.9 pg (27.0-34.8); MEAN CORPUSCULAR HGB CONC 33.7 g/dL (32.4-35.8); MONOCYTES % (AUTO) 9 % (2-9); NEUTROPHILS % (AUTO) 57 % (42-75); PLATELET COUNT 288 x10^3/uL (130-400); RED BLOOD COUNT 2.96 x10^6/uL (3.82-5.3); RED CELL DISTRIBUTION WIDTH 15.2 % (9.6-15.2)
[2020-11-24 05:27] LABS: ANION GAP 6 mmol/L (5-15); CALCIUM 8.2 mg/dL (8.5-10.1); CHLORIDE 102 mmol/L (98-107)
[2020-11-24] MEDS: LACTATED RINGERS 1,000 ML IV SCH ×2 (06:20→19:20)
[2020-11-24] MEDS: CARVEDILOL 3.125 MG TABLET PO SCH ×2 (06:20→17:53)
[2020-11-24 06:48] VITALS: BP 94/61
[2020-11-24 12:55] VITALS: BP 102/65
[2020-11-24] MEDS ORDERED: SMOF TPN IV SCH (17:00)
[2020-11-24] MEDS ORDERED: [UNRECOGNIZED DRUG - OTHER] IV SCH (17:00)
[2020-11-24] MEDS ORDERED: DEXTROSE 70% IV SCH (17:00)
[2020-11-24] MEDS ORDERED: AMINO ACID 10% IV SCH (17:00)
[2020-11-24] MEDS ORDERED: FAT EMUL IV SCH (17:00)
[2020-11-24] MEDS: FILTER, DISP 1.2 MICRON FOR TPN/PVN IV PRN (17:52)
[2020-11-24 18:46] VITALS: BP 101/68
[2020-11-24] MEDS: AMITRIPTYLINE 10 MG TABLET PO SCH (21:11)
[2020-11-25] MEDS: DIPHENHYDRAMINE 50 MG/ML, 1ML IVPush SCH ×4 (00:14→18:40)
[2020-11-25 01:22] VITALS: BP 93/62
[2020-11-25] MEDS: OXYcodone ORAL.CONC 20 MG/ML PO SCH ×7 (03:00→22:30)
[2020-11-25] MEDS: LORazepam 0.5MG TABLET PO SCH ×4 (03:42→20:58)
[2020-11-25] MEDS: CARVEDILOL 3.125 MG TABLET PO SCH ×2 (05:52→18:40)
[2020-11-25] MEDS: LACTATED RINGERS 1,000 ML IV SCH ×2 (05:52→21:20)
[2020-11-25 07:49] VITALS: BP 94/61
[2020-11-25] MEDS ORDERED: OXYcodone ORAL.CONC 20 MG/ML PO SCH ×2 (10:30→13:30)
[2020-11-25] MEDS ORDERED: OXYcodone ORAL.CONC 20 MG/ML ONE (10:43)
[2020-11-25 16:30] VITALS: BP 92/59
[2020-11-25] MEDS: FILTER, DISP 1.2 MICRON FOR TPN/PVN IV PRN (16:50)
[2020-11-25] MEDS ORDERED: SMOF TPN IV SCH (17:00)
[2020-11-25] MEDS ORDERED: FAT EMUL IV SCH (17:00)
[2020-11-25] MEDS ORDERED: DEXTROSE 70% IV SCH (17:00)
[2020-11-25] MEDS ORDERED: [UNRECOGNIZED DRUG - OTHER] IV SCH (17:00)
[2020-11-25] MEDS ORDERED: AMINO ACID 10% IV SCH (17:00)
[2020-11-25 19:04] VITALS: BP 101/70
[2020-11-25] MEDS: AMITRIPTYLINE 10 MG TABLET PO SCH (20:58)
[2020-11-26] MEDS: DIPHENHYDRAMINE 50 MG/ML, 1ML IVPush SCH ×4 (00:18→18:13)
[2020-11-26 00:23] VITALS: BP 103/71
[2020-11-26] MEDS: OXYcodone ORAL.CONC 20 MG/ML PO SCH ×4 (01:30→10:30)
[2020-11-26] MEDS: LORazepam 0.5MG TABLET PO SCH ×4 (03:03→20:59)
[2020-11-26] MEDS: CARVEDILOL 3.125 MG TABLET PO SCH ×2 (05:12→18:07)
[2020-11-26 05:26] LABS: ANION GAP 4 mmol/L (5-15); CALCIUM 8.3 mg/dL (8.5-10.1); CHLORIDE 107 mmol/L (98-107); CREATININE 0.52 mg/dL (0.55-1.02)
[2020-11-26 07:36] VITALS: BP 91/60
[2020-11-26] MEDS: FENTANYL REMOVE PATCH NOTE XX SCH (09:00)
[2020-11-26] MEDS: FENTANYL 75 MCG PATCH TD SCH (09:00)
[2020-11-26] MEDS ORDERED: FENTANYL 50 MCG PATCH ONE (09:41)
[2020-11-26] MEDS: ESTRADIOL 0.1 MG/24 HR PATCH TD SCH (09:43)
[2020-11-26] MEDS: LACTATED RINGERS 1,000 ML IV SCH (11:20)
[2020-11-26 12:44] VITALS: BP 101/69
[2020-11-26] MEDS: HYDROmorphone 2MG TABLET PO SCH ×3 (15:23→23:04)
[2020-11-26] MEDS ORDERED: DEXTROSE 70% IV SCH (17:00)
[2020-11-26] MEDS ORDERED: SMOF TPN IV SCH (17:00)
[2020-11-26] MEDS ORDERED: [UNRECOGNIZED DRUG - OTHER] IV SCH (17:00)
[2020-11-26] MEDS ORDERED: AMINO ACID 10% IV SCH (17:00)
[2020-11-26] MEDS ORDERED: FAT EMUL IV SCH (17:00)
[2020-11-26] MEDS: FILTER, DISP 1.2 MICRON FOR TPN/PVN IV PRN (17:05)
[2020-11-26 19:10] VITALS: BP 105/68
[2020-11-26] MEDS: AMITRIPTYLINE 10 MG TABLET PO SCH (20:59)
[2020-11-27] MEDS: DIPHENHYDRAMINE 50 MG/ML, 1ML IVPush SCH ×5 (00:07→23:25)
[2020-11-27] MEDS: LACTATED RINGERS 1,000 ML IV SCH ×2 (00:09→19:00)
[2020-11-27 00:10] VITALS: BP 101/66
[2020-11-27] MEDS: LORazepam 0.5MG TABLET PO SCH ×4 (03:25→19:52)
[2020-11-27] MEDS: HYDROmorphone 2MG TABLET PO SCH ×6 (03:25→23:25)
[2020-11-27] MEDS: CARVEDILOL 3.125 MG TABLET PO SCH ×2 (05:51→17:58)
[2020-11-27 06:59] VITALS: BP 95/65
[2020-11-27 13:23] VITALS: BP 105/72
[2020-11-27] MEDS ORDERED: FAT EMUL IV SCH (17:00)
[2020-11-27] MEDS ORDERED: [UNRECOGNIZED DRUG - OTHER] IV SCH (17:00)
[2020-11-27] MEDS ORDERED: DEXTROSE 70% IV SCH (17:00)
[2020-11-27] MEDS ORDERED: SMOF TPN IV SCH (17:00)
[2020-11-27] MEDS ORDERED: AMINO ACID 10% IV SCH (17:00)
[2020-11-27] MEDS: FILTER, DISP 1.2 MICRON FOR TPN/PVN IV PRN (17:01)
[2020-11-27] MEDS: AMITRIPTYLINE 10 MG TABLET PO SCH (19:52)
[2020-11-27 20:10] VITALS: BP 94/60
[2020-11-28] MEDS: LORazepam 0.5MG TABLET PO SCH ×4 (03:31→20:56)
[2020-11-28] MEDS: HYDROmorphone 2MG TABLET PO SCH ×6 (03:32→23:02)
[2020-11-28 03:33] VITALS: BP 91/56
[2020-11-28] MEDS: CARVEDILOL 3.125 MG TABLET PO SCH ×2 (06:15→18:01)
[2020-11-28] MEDS: DIPHENHYDRAMINE 50 MG/ML, 1ML IVPush SCH ×3 (06:15→18:00)
[2020-11-28 06:37] LABS: ANION GAP 4 mmol/L (5-15); CALCIUM 8.6 mg/dL (8.5-10.1); CHLORIDE 103 mmol/L (98-107); CREATININE 0.52 mg/dL (0.55-1.02)
[2020-11-28 06:57] VITALS: BP 95/58
[2020-11-28] MEDS: LACTATED RINGERS 1,000 ML IV SCH (07:32)
[2020-11-28] MEDS ORDERED: LORazepam 1MG TABLET ONE (09:12)
[2020-11-28 12:47] VITALS: BP 100/57
[2020-11-28] MEDS ORDERED: AMINO ACID 10% IV SCH (17:00)
[2020-11-28] MEDS ORDERED: FAT EMUL IV SCH (17:00)
[2020-11-28] MEDS ORDERED: DEXTROSE 70% IV SCH (17:00)
[2020-11-28] MEDS ORDERED: [UNRECOGNIZED DRUG - OTHER] IV SCH (17:00)
[2020-11-28] MEDS ORDERED: SMOF TPN IV SCH (17:00)
[2020-11-28] MEDS: FILTER, DISP 1.2 MICRON FOR TPN/PVN IV PRN (17:11)
[2020-11-28 18:02] VITALS: BP 111/67
[2020-11-28 19:19] VITALS: BP 101/67
[2020-11-28] MEDS: AMITRIPTYLINE 10 MG TABLET PO SCH (20:56)
[2020-11-29 00:05] VITALS: BP 98/53
[2020-11-29] MEDS: DIPHENHYDRAMINE 50 MG/ML, 1ML IVPush SCH ×4 (00:07→18:26)
[2020-11-29] MEDS: HYDROmorphone 2MG TABLET PO SCH ×6 (03:05→23:10)
[2020-11-29] MEDS: LORazepam 0.5MG TABLET PO SCH ×4 (03:05→21:11)
[2020-11-29] MEDS: LACTATED RINGERS 1,000 ML IV SCH (05:25)
[2020-11-29 06:05] LABS: ANION GAP 3 mmol/L (5-15); CALCIUM 8.3 mg/dL (8.5-10.1); CHLORIDE 106 mmol/L (98-107)
[2020-11-29 06:10] VITALS: BP 99/67
[2020-11-29] MEDS: CARVEDILOL 3.125 MG TABLET PO SCH ×2 (06:12→18:26)
[2020-11-29 06:13] LABS: ALANINE AMINOTRANSFERASE 50 U/L (12-78); ALKALINE PHOSPHATASE 181 U/L (45-117); BILIRUBIN,TOTAL 0.2 mg/dL (0.2-1.0); CREATININE 0.51 mg/dL (0.55-1.02); PREALBUMIN 21.7 mg/dL (20.0-40.0); TOTAL PROTEIN 7.1 g/dL (6.4-8.2)
[2020-11-29] MEDS: FENTANYL REMOVE PATCH NOTE XX SCH (09:00)
[2020-11-29] MEDS: FENTANYL 75 MCG PATCH TD SCH (09:00)
[2020-11-29] MEDS ORDERED: FENTANYL 50 MCG PATCH ONE (09:09)
[2020-11-29] MEDS ORDERED: FENTANYL 100 MCG PATCH ONE (09:09)
[2020-11-29] MEDS: ESTRADIOL 0.1 MG/24 HR PATCH TD SCH (09:12)
[2020-11-29 13:12] VITALS: BP 104/72
[2020-11-29] MEDS: FILTER, DISP 1.2 MICRON FOR TPN/PVN IV PRN (16:48)
[2020-11-29] MEDS ORDERED: AMINO ACID 10% IV SCH (17:00)
[2020-11-29] MEDS ORDERED: [UNRECOGNIZED DRUG - OTHER] IV SCH (17:00)
[2020-11-29] MEDS ORDERED: SMOF TPN IV SCH (17:00)
[2020-11-29] MEDS ORDERED: DEXTROSE 70% IV SCH (17:00)
[2020-11-29] MEDS ORDERED: FAT EMUL IV SCH (17:00)
[2020-11-29 19:15] VITALS: BP 94/65
[2020-11-29] MEDS: AMITRIPTYLINE 10 MG TABLET PO SCH (21:11)
[2020-11-30 00:25] VITALS: BP 107/67
[2020-11-30] MEDS: DIPHENHYDRAMINE 50 MG/ML, 1ML IVPush SCH ×4 (00:28→18:05)
[2020-11-30] MEDS: LORazepam 0.5MG TABLET PO SCH ×3 (03:22→15:12)
[2020-11-30] MEDS: HYDROmorphone 2MG TABLET PO SCH ×4 (03:22→15:12)
[2020-11-30] MEDS: CARVEDILOL 3.125 MG TABLET PO SCH ×2 (05:28→18:05)
[2020-11-30] MEDS: LACTATED RINGERS 1,000 ML IV SCH (05:29)
[2020-11-30 07:48] VITALS: BP 93/63
[2020-11-30 14:07] VITALS: BP 99/69
[2020-11-30] MEDS ORDERED: [UNRECOGNIZED DRUG - OTHER] IV SCH (17:00)
[2020-11-30] MEDS ORDERED: FAT EMUL IV SCH (17:00)
[2020-11-30] MEDS ORDERED: DEXTROSE 70% IV SCH (17:00)
[2020-11-30] MEDS ORDERED: SMOF TPN IV SCH (17:00)
[2020-11-30] MEDS ORDERED: AMINO ACID 10% IV SCH (17:00)
[2020-11-30] MEDS: FILTER, DISP 1.2 MICRON FOR TPN/PVN IV PRN (17:07)
== END 2020-11-30 18:20 | disposition home or self-care (01) | DRG 854 ==
LOC: ED 19:03 → EDIP 19:04 → 4NW 19:56 → 5SO 11-05 16:24 → 4NW 11-08 15:38
PROVIDERS: ADMIT Specialist; ATTEND Specialist
PROC: 0T913ZZ Drainage of Left Kidney, Percutaneous Approach (ICD-10-PCS; 2020-10-15)
PROC: 0T903ZZ Drainage of Right Kidney, Percutaneous Approach (ICD-10-PCS; 2020-10-15)
PROC: 0T25X0Z Change Drainage Device in Kidney, External Approach (ICD-10-PCS; 2020-10-18)
PROC: 0DCA8ZZ Extirpation of Matter from Jejunum, Via Natural or Artificial Opening Endoscopic (ICD-10-PCS; 2020-10-19)
PROC: 0D9A40Z Drainage of Jejunum with Drainage Device, Percutaneous Endoscopic Approach (ICD-10-PCS; 2020-10-19)
PROC: 0D7 Gastrointestinal System, Dilation (ICD-10-PCS; 2020-10-19)
PROC: 0D1B0Z4 Bypass Ileum to Cutaneous, Open Approach (ICD-10-PCS; principal; 2020-10-19 14:15)
DX: A41.9 Sepsis, unspecified organism (principal); E46 Unspecified protein-calorie malnutrition; K31.1 Adult hypertrophic pyloric stenosis; K52.0 Gastroenteritis and colitis due to radiation; K56.609 Unspecified intestinal obstruction, unspecified as to partial versus complete obstruction; K91.2 Postsurgical malabsorption, not elsewhere classified; N11.9 Chronic tubulo-interstitial nephritis, unspecified; N82.8 Other female genital tract fistulae; I47.1 Supraventricular tachycardia; E83.42 Hypomagnesemia; E87.6 Hypokalemia; C53.9 Malignant neoplasm of cervix uteri, unspecified; Z20.822 Contact with and (suspected) exposure to COVID-19; Z68.23 Body mass index [BMI] 23.0-23.9, adult; Z82.49 Family history of ischemic heart disease and other diseases of the circulatory system; Z83.3 Family history of diabetes mellitus; Z92.21 Personal history of antineoplastic chemotherapy; Z92.3 Personal history of irradiation; Z93.3 Colostomy status; Z93.4 Other artificial openings of gastrointestinal tract status; Z93.6 Other artificial openings of urinary tract status; Z88.5 Allergy status to narcotic agent; Z79.899 Other long term (current) drug therapy; F41.9 Anxiety disorder, unspecified; Z86.718 Personal history of other venous thrombosis and embolism
CPT/HCPCS: 36415; 50435; 74018; 74425; 76000; 96361; 96365; 96375; 96376; 99291; J1955; J3475; 71045; 74177; 80048; 80053; 81001; 83605; 83690; 83735; 84100; 84134; 84478; 84484; 85025; 85610; 85651; 85730; 86140; 87040; 87076; 87077; 87086; 87186; 87324; 87635; 93005; 93306; G0378; J0153; J0610; J0696; J1170; J1644; J2250; J2405; J2543; J2704; J2997; J3010; J3480; Q9966; Q9967; C1725; C1729; C1769; J1160; J1200; J2060; J2310; J3420; J7030; J7040; J7050; J7120

== ENCOUNTER 2020-12-28 12:28 | Emergency (ER) | payer MEDICAID ==
[~2020-12-28] VITALS: Ht 147.3 cm; Wt 45.0 kg
[~2020-12-28 12:28] MED LIST changes: +ONDA4TAB7 PO; +estradiol PO
[2020-12-28 13:18] LABS: BASOPHILS % (AUTO) 1 % (0-1); EOSINOPHILS % (AUTO) 1 % (1-7); LYMPHOCYTES % (AUTO) 16 % (22-44); MEAN CORPUSCULAR HEMOGLOBIN 30.1 pg (27.0-34.8); MEAN CORPUSCULAR HGB CONC 33.5 g/dL (32.4-35.8); MEAN PLATELET VOLUME 8.6 fL (7.4-10.4); MONOCYTES % (AUTO) 6 % (2-9); NEUTROPHILS % (AUTO) 77 % (42-75); PLATELET COUNT 316 x10^3/uL (130-400); RED BLOOD COUNT 3.82 x10^6/uL (3.82-5.3); RED CELL DISTRIBUTION WIDTH 12.4 % (9.6-15.2)
[2020-12-28 13:30] LABS: ALANINE AMINOTRANSFERASE 120 U/L (12-78); ALBUMIN 2.7 g/dL (3.4-5.0); ANION GAP 6 mmol/L (5-15); CALCIUM 8.4 mg/dL (8.5-10.1); CHLORIDE 104 mmol/L (98-107); CREATININE 0.75 mg/dL (0.55-1.02)
[2020-12-28] MEDS ORDERED: SODIUM CHLORIDE 0.9% 1,000ML IVBOLUS ONE ×2 (13:30→18:30)
[2020-12-28 13:32] LABS: ALKALINE PHOSPHATASE 329 U/L (45-117); BILIRUBIN,TOTAL 0.2 mg/dL (0.2-1.0); TOTAL PROTEIN 8.4 g/dL (6.4-8.2)
[2020-12-28] MEDS ORDERED: HYDROmorphone 2 MG/ML, 1ML ONE ×3 (14:05→18:44)
[2020-12-28] MEDS ORDERED: ONDANSETRON 2MG/ML, 2ML ONE (14:06)
[2020-12-28] MEDS ORDERED: HYDROmorphone 1 MG/ML, 1ML INJ IV ONE (14:30)
[2020-12-28] MEDS ORDERED: ONDANSETRON 2MG/ML, 2ML IVPush ONE ×2 (14:30→15:00)
[2020-12-28] MEDS ORDERED: OMNIPAQUE 350 MG/ML, 100ML BOTTLE ONE (15:54)
[2020-12-28] MEDS ORDERED: HYDROmorphone 2 MG/ML, 1ML IV ONE ×2 (16:00→16:30)
[2020-12-28] MEDS ORDERED: FENTANYL PF 100 MCG/2ML ONE (16:30)
[2020-12-28] MEDS ORDERED: MIDAZOLAM 1 MG/ML, 5ML ONE (16:30)
[2020-12-28] MEDS ORDERED: VISIPAQUE 270 MG/ML, 50ML BOTTLE ONE (16:53)
[2020-12-28 19:01] LABS: MICROSCOPIC AUTO
[2020-12-28 20:15] VITALS: BP 104/62
[2020-12-30] MEDS ORDERED: AMIT10TA PO (19:04)
[2020-12-30] MEDS ORDERED: LORA-445 PO (19:05)
[2020-12-30] MEDS ORDERED: HYDR2TAB29 PO (19:06)
[2020-12-30] MEDS ORDERED: FENT-58 TP (19:10)
== END 2020-12-28 20:49 | disposition home or self-care (01) ==
LOC: ED 13:35
DX: R10.12 Left upper quadrant pain (principal)
CPT/HCPCS: 36415; 50435; 74177; 76705; 80053; 81001; 83690; 85025; 87077; 87086; 87186; 96361; 96374; 96375; 96376; 99156; 99285; C1729; C1769; J1170; J2250; J2405; J3010; J7030; Q9966; Q9967